=== PATIENT | female | born 1965 | race Caucasian/White ===

== ENCOUNTER → 2017-05-10 07:04 | Outpatient (CLI) | payer OTHER, SELFPAY ==
[2017-05-10 07:31] LABS: Absolute Lymphocyte Count 2.45 X10^3/ul (0.83-4.51); Absolute Neutrophil Count 2.1 X10^3/uL (2.0-7.7); Basophil# 0.02 X10^3/uL; Basophil% 0.4 % (0-1); Eosinophil# 0.23 X10^3/uL; Eosinophils% 4.3 % (0-5); Hemoglobin 12.8 g/dl (12.0-15.0); Lymphocyte # 2.45 X10^3/ul (4.0); Lymphocyte % 45.6 % (19-41); Mean Corp Hgb Conc 33.7 g/gl (32-36); Mean Corpuscular Hgb 29.4 pg (27.0-32.0); Mean Corpuscular Volume 87.4 fL (81-99); Mean Platelet Vol. 10.6 fl (6.2-12.0); Monocyte# 0.53 X10^3/uL; Monocyte% 9.9 % (0-10); Neutrophil # 2.13 X10^3/uL (2.7-7.7); Neutrophil % 39.6 % (47-70); Platelet Count 244 K/mm3 (150-450); RBC Distribution Width CV 12.3 % (11.6-14.6); RBC Distribution Width SD 39.8 fl (35.1-43.9); Red Blood Count 4.35 M/mm3 (4.2-5.4); White Blood Count 5.4 K/mm3 (4.4-11.0)
[2017-05-10 07:40] LABS: POSITIVE COUNT NO; POSITIVE DIFFERENTIAL NO; POSITIVE MORPHOLOGY NO
[2017-05-10 08:00] LABS: AST(SGOT) 16 U/L (15-37); Alanine Aminotransfer ALT/SGPT 17 U/L (13-56); Albumin, Serum 3.6 g/dL (3.2-5.0); Alkaline Phosphatase 77 U/L (45-117); Anion Gap 8 (5-15); BUN 10 mg/dL (7-18); BUN/Creat Ratio 15.2 RATIO (10-20); Calcium,Total 8.6 mg/dL (8.5-10.1); Chloride 107 mmol/L (98-107); Cholesterol 183 mg/dL (200); Creatinine, Serum 0.66 mg/dL (0.55-1.02); EST Glomerular Filtration Rate 101 mL/min (>60); Est Glom Filt Rate - Afr Amer 122 mL/min (>60); Free T3 2.5 pg/mL (2.18-3.98); Globulin 3.5 g/dL (2.2-4.2); Glucose 97 mg/dL (74-106); Potassium 4.3 mmol/L (3.5-5.1); Protein, Total 7.1 g/dL (6.4-8.2); Sodium Level 141 mmol/L (136-145); T4 Free Direct 0.83 ng/dL (0.76-1.46); Thyroid Stim Hormone (TSH) 3.51 uIU/mL (0.358-3.74)
[2017-05-11 11:21] LABS: Thyroid Peroxidase AB 19 IU/mL (0-34)
== END ==
PROVIDERS: Family Provider Family Medicine; PCP Family Medicine; Visit Provider Family Medicine
DX: Q87.40 Marfan syndrome, unspecified (principal); L65.9 Nonscarring hair loss, unspecified; R73.01 Impaired fasting glucose
CPT/HCPCS: 80053; 82465; 84439; 84443; 84481; 85025; 86376

== ENCOUNTER → 2017-06-10 07:47 | Outpatient (CLI) | payer OTHER, SELFPAY ==
--- NOTE | 2017-06-10 07:49 | CT_ITS ---
STUDY: CTA CHEST REASON FOR EXAM: Female, 51 years old. 6 month history of chest pain. Family history of Marfan's. RADIATION DOSAGE (If Supplied By Facility): CTDIvol = ( 10.81 ) mGy, DLP = ( 363.49 ) mGycm TECHNIQUE: The examination was performed with the intravenous administration of 100 ml of Isovue 370 contrast material. Post-processing of the angiographic images was performed, with multiplanar reformation and 3D reconstruction. Individualized dose optimization techniques were used for this CT. COMPARISON: Comparison is made with prior examination dated December 30, 2009. FINDINGS: Normal enhancement of the main pulmonary artery and right and left pulmonary arteries. Normal enhancement of the bilateral peripheral pulmonary arteries. There is no demonstrated pulmonary embolism. Normal thoracic aorta and visualized great vessels. There is no demonstrated aortic dissection. Normal heart and pericardium. Normal mediastinum. Normal hilar regions. Normal visualized trachea and bronchi. The lungs are well expanded. Normal pulmonary parenchyma. Normal pleura. Normal chest wall structures. There are degenerative changes of thoracic spine. Normal visualized upper abdomen. CT/CTA Chest W/WO Contrast IMPRESSION: Normal CTA chest examination, without a demonstrated pulmonary embolism or arterial dissection. Electronically Signed: Florentino White MD at 15:41 EDT Tel [phone], Service support ,
== END ==
PROVIDERS: Family Provider Family Medicine; PCP Family Medicine; Visit Provider Internal Medicine Cardiovascular Disease
DX: G45.8 Other transient cerebral ischemic attacks and related syndromes (principal); I77.810 Thoracic aortic ectasia; Q67.6 Pectus excavatum; R07.9 Chest pain, unspecified; Z82.79 Family history of other congenital malformations, deformations and chromosomal abnormalities
CPT/HCPCS: 71275; Q9967

== ENCOUNTER → 2017-06-15 10:38 | Outpatient (CLI) | payer OTHER, SELFPAY ==
--- NOTE | 2017-06-15 10:39 | STE_ITS ---
Reason For Study: Chest Pain Stress Results Protocol: [facility] Protocol Maximum Predicted HR: 170 bpm Target HR: 145 bpm% Max imum Predicted HR: 96 % DurationHeart Rate Stage (mm:ss) (bpm) BPCom ment Baseline 67 122/90 Mild Chest Pressure [facility] Protocol Stage I 3:00 12 9 134/86Mild Chest Pressure Marin Protocol Stage II 3:00 13 9 146/88Chest Pressure Improved Marin Protocol Stage III 3:00 16 4 160/88No Chest Pressure Recovery 98 118/82 No Chest Pressure Stress Duration: 9:00 mm:ss Maximum Stress HR: 164 bpmM ETS: 10 Baseline Echocardiogram Findings The estimated ejection fraction is 65 %. Stress Echo Wall motion Data Resting WMIntermediate WMStress WM Resting Wall Motion Wall Motion Stress No regional wall motion No regional wall motion abnormalities noted. abnormalities noted. EKG Data The baseline ECG demonstrates normal sinus rhythm with at rate of _ beats per minute. The patient exercised according to the regular Marin protocol for a total duration of 9:00. The maximum heart rate attained was 164 beats per minute. This was 96% of maximum predicted heart rate. The patient exercised into stage 4 of the Marin protocol. During stress, there were no ST or T wave changes noted to suggest ischemia. Interpretation Summary The estimated ejection fraction is 65 %. Normal adequate treadmill echocardiogram. Negative for ischemia by EKG and echocardiographic criteria. Pt had mild chest pressure at baseline prior to test, which actually improved with exercise. Appropriate blood pressure response to exercise. Average exercise capacity for age. Final LVEF of 75%. Test terminated due to leg discomfort. No complications. MMode/2D Measurements & Calculations Ao root diam: 4.3 cm Ordering Physician: Yvon Salazar Referring Physician: Yvon Salazar Performed By: Analy Champion, RDCS, RVT
== END ==
PROVIDERS: Family Provider Family Medicine; PCP Family Medicine; Visit Provider Internal Medicine Cardiovascular Disease
DX: G45.8 Other transient cerebral ischemic attacks and related syndromes (principal); I77.810 Thoracic aortic ectasia; Q67.6 Pectus excavatum; R07.9 Chest pain, unspecified; Z82.79 Family history of other congenital malformations, deformations and chromosomal abnormalities
CPT/HCPCS: 93017; 93350

== ENCOUNTER → 2017-10-18 13:58 | Outpatient (CLI) | payer SELFPAY, OTHER | PROVIDERS: Family Provider Family Medicine; PCP Family Medicine; Visit Provider Family Medicine | DX: M25.561 Pain in right knee (principal); M25.461 Effusion, right knee | CPT/HCPCS: 73564 ==

== ENCOUNTER → 2017-11-08 07:53 | Outpatient (CLI) | payer OTHER, SELFPAY ==
--- NOTE | 2017-11-08 07:56 | BI_ITS ---
MAMMOGRAPHY - BILATERAL SCREENING REASON FOR EXAM: Female, 51 years old. Routine annual screening examination. PERTINENT HISTORY: Grandmother with breast cancer. TECHNIQUE: Digital bilateral breast fannie (3D mammographic acquisition) in the CC and MLO projections. 2-D mediolateral oblique (MLO) and craniocaudad (CC) views of both breasts were obtained. CAD: Full Field Digital Mammography with Computer Added Detection was performed. COMPARISON: Comparison is made with prior examination dated December 19, 2014 and November 07, 2013. FINDINGS: Breast Composition: The breasts are heterogeneously dense, which may obscure small masses. There are no dominant masses or suspicious calcifications. No other significant abnormalities are identified. There has been no significant change since the prior study. BI/SCREENING MAMM (CAD), BILAT IMPRESSION: Stable bilateral screening mammogram. Yearly follow-up mammogram recommended. (A) ASSESSMENT CATEGORY: BIRADS Category 1: Negative. A letter regarding these results will be sent to the patient by the facility within 30 days. Approximately 10% of breast cancers are not detected by mammography. A normal mammogram should not delay biopsy of a clinically suspicious abnormality. [id number] Electronically Signed: Florentino White MD at 9:04 EDT Tel [phone], Service support ,
--- NOTE | 2017-11-08 08:12 | BD_ITS ---
STUDY: DUAL ENERGY X-RAY ABSORPTIOMETRY / DXA REASON FOR EXAM: Female, 51 years old. Perimenopausal. No loss of height. TECHNIQUE: Bone Mineral Density (BMD) measurements of lumbar spine and bilateral hips were obtained. COMPARISON: None. FINDINGS: Lumbar Spine (L1-L4): g/cm2 (1.197) / T-score (0.1) / Z-score (0.6) Findings are suggestive of normal bone density with a low fracture risk. Left Femur Total: g/cm2 (0.978) / T-score (-0.2) / Z-score (0.3) Left Femoral Neck: g/cm2 (0.869) / T-score (-1.2) / Z-score (-0.4) Right Femur Total: g/cm2 (1.015) / T-score (0.1) / Z-score (0.6) Right Femoral Neck: g/cm2 (0.923) / T-score (-0.8) / Z-score (0.0) BD/Dexa Bone Density Study IMPRESSION: The patient is considered osteopenic as outlined below according to World [employer] Organization (WHO) criteria with a low fracture risk. Reference Information: The T-score is the number of standard deviations above or below the standard which is normal for young adults at their peak bone mineral density. The World Health Organization (WHO) interprets the T-scores as follows: Above -1 Normal bone density Between -1 and -2.5 Osteopenia Equal to / or below -2.5 Osteoporosis As a practical clinical guideline, osteopenia may be graded as follows: Mild -1 through -1.5 Moderate -1.6 through -2.0 Severe -2.1 through -2.4 The Z-score is the number of standard deviations above or below age-matched controls. A Z-score of less than -1.5 would be considered abnormal. References: 1. NIH Osteoporosis and Related Bone Diseases http://www.osteo.org 2. International Society for Clinical Densitometry http://www.iscd.org 3. National Osteoporosis Foundation http://www.nof.org Electronically Signed: Florentino White MD at 13:55 EDT Tel [phone], Service support ,
== END ==
PROVIDERS: Family Provider Family Medicine; PCP Family Medicine; Visit Provider Family Medicine
DX: Z12.31 Encounter for screening mammogram for malignant neoplasm of breast (principal); Z13.820 Encounter for screening for osteoporosis; M85.80 Other specified disorders of bone density and structure, unspecified site; Q87.40 Marfan syndrome, unspecified
CPT/HCPCS: 77062; 77067; 77080; G0279

== ENCOUNTER → 2018-04-20 15:43 | Outpatient (CLI) | payer OTHER, SELFPAY ==
[2017-12-01 13:40] VITALS: BMI 29.7
[2018-04-20 15:49] LABS: Mucous, Urine 0 SEEN /hpf (<or=2+); White Blood Cells 0 SEEN /hpf (0-5)
[2018-04-20 17:41] LABS: Absolute Lymphocyte Count 2.66 X10^3/ul (0.83-4.51); Absolute Neutrophil Count 3.1 X10^3/uL (2.0-7.7); Basophil# 0.03 X10^3/uL; Basophil% 0.5 % (0-1); Eosinophils% 3.1 % (0-5); Hematocrit 38.6 % (37-47); Hemoglobin 12.9 g/dl (12.0-15.0); Lymphocyte # 2.66 X10^3/ul (4.0); Lymphocyte % 40.6 % (19-41); Mean Corp Hgb Conc 33.4 g/gl (32-36); Mean Corpuscular Hgb 29.6 pg (27.0-32.0); Mean Corpuscular Volume 88.5 fL (81-99); Mean Platelet Vol. 11.1 fl (6.2-12.0); Monocyte# 0.53 X10^3/uL; Monocyte% 8.1 % (0-10); Neutrophil # 3.11 X10^3/uL (2.7-7.7); Neutrophil % 47.4 % (47-70); Platelet Count 251 K/mm3 (150-450); RBC Distribution Width CV 12.3 % (11.6-14.6); RBC Distribution Width SD 38.9 fl (35.1-43.9); Red Blood Count 4.36 M/mm3 (4.2-5.4); White Blood Count 6.6 K/mm3 (4.4-11.0)
[2018-04-20 17:44] LABS: Color, Urine Yellow (Yellow); Glucose, Dipstick Normal (Normal); Ketone-Dipstick 5 mg/dl (Negative); Leukocyte Esterase-Dipstick Negative /ul (Negative); Nitrite-Dipstick Negative (Negative); Occult Blood-Urine Negative /ul (Negative); POSITIVE COUNT NO; POSITIVE DIFFERENTIAL NO; POSITIVE MORPHOLOGY NO; Protein-Dipstick Negative (Negative); Urine Bilirubin Dipstick Negative (Negative); Urine Clarity Clear (Clear); Urine Urobilinogen Normal (Normal)
[2018-04-20 17:55] LABS: Bacteria RARE /hpf (None Seen); Red Blood Cells-Urine 0-5 SEEN /hpf (0-5); Squamous Epithelial Cells - UA 0-5 SEEN /hpf (5-10)
[2018-04-20 17:59] LABS: ALB/GLOB Ratio 1.2 RATIO (0.9-2.4); AST(SGOT) 24 U/L (15-37); Alanine Aminotransfer ALT/SGPT 34 U/L (13-56); Albumin, Serum 4.1 g/dL (3.2-5.0); Alkaline Phosphatase 98 U/L (45-117); Anion Gap 10 (5-15); BUN 12 mg/dL (7-18); BUN/Creat Ratio 16.9 RATIO (10-20); Calcium,Total 9.2 mg/dL (8.5-10.1); Chloride 106 mmol/L (98-107); Creatinine, Serum 0.71 mg/dL (0.55-1.02); EST Glomerular Filtration Rate 92 mL/min (>60); Est Glom Filt Rate - Afr Amer 112 mL/min (>60); Globulin 3.5 g/dL (2.2-4.2); Glucose 84 mg/dL (74-106); Hemoglobin A1c 5.4 % (4.2-6.3); Potassium 4.3 mmol/L (3.5-5.1); Protein, Total 7.6 g/dL (6.4-8.2); Sodium Level 141 mmol/L (136-145); Thyroid Stim Hormone (TSH) 1.42 uIU/mL (0.358-3.74)
== END ==
PROVIDERS: Family Provider Family Medicine; PCP Family Medicine; Referring Provider Family Medicine; Visit Provider Family Medicine
DX: N39.0 Urinary tract infection, site not specified (principal); R82.90 Unspecified abnormal findings in urine
CPT/HCPCS: 36415; 80053; 81001; 83036; 84443; 85025; 87086; 87088

== ENCOUNTER → 2018-10-31 11:36 | Outpatient (CLI) | payer OTHER, SELFPAY ==
[2017-12-01 13:40] VITALS: BMI 29.7
[2018-10-31 15:47] LABS: T3 Uptake 30 % (30-39); T4 Free Direct 0.97 ng/dL (0.76-1.46); Thyroid Stim Hormone (TSH) 1.49 uIU/mL (0.358-3.74)
== END ==
PROVIDERS: Nurse Practitioner Adult Health; Family Provider Family Medicine; PCP Family Medicine; Referring Provider Family Medicine; Visit Provider Family Medicine
DX: R53.83 Other fatigue (principal)
CPT/HCPCS: 36415; 84439; 84443; 84479

== ENCOUNTER → 2018-12-06 11:08 | Outpatient (CLI) | payer OTHER, SELFPAY ==
--- NOTE | 2018-12-06 11:12 | BI_ITS ---
BILATERAL DIGITAL MAMMOGRAM WITH TOMOSYNTHESIS: Mediolateraloblique and craniocaudal views demonstrate no evidence of dominant parenchymal masses. No cluster of microcalcifications or architectural distortion is seen. No evidence of skin thickening is identified. There has been no significant change since 10/29/2017 . Breast Density: The breast tissue is extremely dense which may lower the sensitivity of mammography. CAD was used to assist in final assessment. IMPRESSION: NORMAL MAMMOGRAM BILATERALLY. ASSESSMENT CATEGORY: BIRADS Category 1: Negative. A letter regarding these results will be sent to the patient by the facility within 30 days. FOLLOW UP RECOMMENDATION: Yearly follow up mammogram recommended. (A) Approximately 10% of breast cancers are not detected by mammography. A normal mammogram should not delay biopsy of a clinically suspicious abnormality. Electronically Signed: Jomar Higuera, at 17:16 EDT Tel , Service support , BI/SCREEN MAMM (CAD) W/KRISTIN SAGE
== END ==
PROVIDERS: Family Provider Family Medicine; PCP Family Medicine; Referring Provider Nurse Practitioner Adult Health; Visit Provider Nurse Practitioner Adult Health
DX: Z12.31 Encounter for screening mammogram for malignant neoplasm of breast (principal); Z78.0 Asymptomatic menopausal state
CPT/HCPCS: 77063; 77067

== ENCOUNTER 2019-01-16 06:23 | Day surgery (SDC) | payer OTHER, SELFPAY ==
[2019-01-10 10:01] VITALS: BMI 30.5
[2019-01-16] VITALS (7 sets, daily range): BP systolic 109–122; BP diastolic 70–87; PULSE 69–85; RESP 16; TEMP 36.7–36.9; O2SAT 95–100; BMI 28.8
--- NOTE | 2019-01-16 07:01 | HP.PCM_ITS ---
Problem List (1) Screening for intestinal cancer Status: Acute History of Present Illness Date of Admission: 01/16/19 The patient is a 53 year old F who presents today for screening colonoscopy. All members of her family have Marfan's. She states that she has never been actually diagnosed with that. In the past she has had some noncardiac chest pain. Aortic root on most recent measurement is 4.1 cm. That was February 2018 through the [facility] cardiology. She has never previously had a colonoscopy. No bright red blood per rectum or melena. No abdominal pain. No unexpected weight loss. She otherwise enjoys good health. No family history of colon cancer. Past Medical History Past Medical History (Chronic Problems): Chronic Problems (This Medical Record has been edited. Action required.) Aortic root dilatation (Chronic) Family history of Marfan syndrome (Chronic) Medical History: Medical History (This Medical Record has been edited. Action required.) Aortic root dilatation (Chronic) I77.810 Family history of Marfan syndrome (Chronic) Z82.79 Arthritis M19.90 Chest pain, unspecified (Resolved) R07.9 Allergies ciprofloxacin [From Cipro] Allergy (Unknown, Verified 01/16/19 06:41) unknown nitrofurantoin [From Macrobid] Allergy (Unknown, Verified 01/16/19 06:41) unknown sulfamethoxazole [From Bactrim] Allergy (Unknown, Verified 01/16/19 06:41) unknown trimethoprim [From Bactrim] Allergy (Unknown, Verified 01/16/19 06:41) unknown Sulfa (Sulfonamide Antibiotics) Allergy (Verified 01/16/19 06:41) Hives Home Medications: Ambulatory Orders Medication Instructions Recorded atenolol 25 mg tablet 25 mg PO DAILY #7 tab 04/21/18 losartan 100 mg tablet 100 mg PO DAILY #7 tab 04/21/18 aspirin 81 mg tablet,delayed 81 mg PO DAILY 01/09/19 release Surgical History: Surgical History (Last Reviewed 01/09/19 @ 14:26 by Ina Henderson) History of hernia repair Onset Date: ~2013 Z98.890, Z87.19 Hx of artificial lens replacement Z96.1 2000,2013 Smoking Status: Former smoker Tobacco Use: Non-smoker Review of Systems Constitutional: Denies: Anorexia HEENT: Denies: Difficulty Swallowing Cardiovascular: Denies: Chest Pain Respiratory: Denies: Cough Gastrointestinal: Denies: Abdominal Pain, Melena Endocrine: Denies: Change in Body Habitus VTE Information - Inpt Only VTE Present on Admission: No Patient Problems: Active and Suspected Problems (This Medical Record has been edited. Action required.) Screening for intestinal cancer (Acute) - Physical Exam Vitals/I&O's: Vital Signs Temp Pulse Resp BP Pulse Ox 98.0 F 85 16 115/87 H 95 01/16/19 06:42 01/16/19 06:42 01/16/19 06:42 01/16/19 06:42 01/16/19 06:42 Oxygen Delivery Method Room Air Weight: 183 lb 13.848 oz Body Mass Index (BMI) 28.8 General: Alert, Oriented x3, Cooperative Oral: Moist Mucosa Lungs: Clear to auscultation Cardiovascular: Regular rate, Regular Rhythm Abdomen: Bowel Sounds Present, Soft, Non Tender Extremities: No Calf Tenderness Psych/Mental Status: Normal Affect Assessment/Plan All Active Problems (This Medical Record has been edited. Action required.) Screening for intestinal cancer (Acute) Chest pain, unspecified (Resolved) I recommend to the patient is screening colonoscopy with possible biopsy or polyp removal as indicated. She is aware of the technique, benefits, risks, alternatives. She has had an opportunity to ask and have questions answered. She has performed her bowel prep. She presents via our open access program today. We will proceed as noted. Delta Barrett M.D., F.A.C.S.
--- NOTE | 2019-01-16 07:57 | OP.COLON_ITS ---
Patient Name: Itzel Butt Procedure Date: 01/16/2019 7:35 AM Date of : 1965 Age: 53 Procedure: Colonoscopy Indications: Screening for colorectal malignant neoplasm Providers: Delta Barrett MD Referring MD: Alton Espinal Medicines: See the Anesthesia note for documentation of the administered medications Patient Profile: Last Colonoscopy: none. The patient's first colonoscopy is today. Complications: No immediate complications. Procedure: Pre-Anesthesia Assessment: - Prior to the procedure, a History and Physical was performed, and patient medications and allergies were reviewed. The patient's tolerance of previous anesthesia was also reviewed. The risks and benefits of the procedure and the sedation options and risks were discussed with the patient. All questions were answered, and informed consent was obtained. Prior Anticoagulants: The patient has taken no previous anticoagulant or antiplatelet agents. ASA Grade Assessment: II - A patient with mild systemic disease. After reviewing the risks and benefits, the patient was deemed in satisfactory condition to undergo the procedure. After I obtained informed consent, the scope was passed under direct vision. Throughout the procedure, the patient's blood pressure, pulse, and oxygen saturations were monitored continuously. The Colonoscope was introduced through the anus and advanced to the cecum, identified by appendiceal orifice and ileocecal valve. The colonoscopy was performed without difficulty. The patient tolerated the procedure well. The quality of the bowel preparation was good. The ileocecal valve and the appendiceal orifice were photographed. Scope In: 7:43:54 AM Scope Withdrawal Time 0 hours 6 minutes 12 seconds Scope Out: 7:54:08 AM Total Procedure Duration Time 0 hours 10 minutes 14 seconds Findings: Hemorrhoids were found on perianal exam. The colon (entire examined portion) appeared normal. Impression: - Hemorrhoids found on perianal exam. - The entire examined colon is normal. - No specimens collected. Recommendation: - Discharge patient to home. - Resume previous diet. - Continue present medications. - Repeat colonoscopy in 10 years for screening purposes. Procedure Code(s): --- Professional --- 34085, Colonoscopy, flexible; diagnostic, including collection of specimen(s) by brushing or washing, when performed (separate procedure) Diagnosis Code(s): --- Professional --- Z12.11, Encounter for screening for malignant neoplasm of colon K64.9, Unspecified hemorrhoids CPT copyright 2017 [employer]. All rights reserved. The codes documented in this report are preliminary and upon lithographic stripper review may be revised to meet current compliance requirements. Delta Barrett MD 01/16/2019 7:57:20 AM This report has been signed electronically. Number of Addenda: 0 Note Initiated On: 01/16/2019 7:35 AM
== END 2019-01-16 08:38 | disposition home or self-care (01) ==
LOC: EN 06:24 → AC 06:26
PROVIDERS: Family Provider Family Medicine; PCP Family Medicine; Referring Provider Family Medicine; Visit Provider Surgery
PROC: 0DJD8ZZ Inspection of Lower Intestinal Tract, Via Natural or Artificial Opening Endoscopic (ICD-10-PCS; CPT 45378; principal; 2019-01-16 07:25)
DX: Z12.11 Encounter for screening for malignant neoplasm of colon (principal); K64.9 Unspecified hemorrhoids; Z79.82 Long term (current) use of aspirin; Z87.891 Personal history of nicotine dependence
CPT/HCPCS: 45378; J7120; J2405

== ENCOUNTER 2019-10-23 12:28 | Emergency (ER) | payer OTHER, SELFPAY ==
[2019-01-16 06:42] VITALS: BMI 28.8
[2019-10-23 12:30] VITALS: BP 152/107; PULSE 69; RESP 18; TEMP 36.9; O2SAT 99; BMI 29.7
[2019-10-23] MEDS: HYDROcodone Bitartrate/Apap 5/325 Tablet PO (14:00)
--- NOTE | 2019-10-23 14:01 | ED.VIS.GEN ---
History of Present Illness Chief Complaint: Other, Pain/Inj Informant: Patient, Family Narrative: Patient is a 53-year-old female who presents to the ED from her PCPs office for pain on the right side of her body. Has been ongoing for the past couple week. She has had pain like this many times before in the past. She typically goes to her chiropractor. She tried this which did not help. Her pain is initially started as what she thought to be a muscle spasm on her right shoulder/neck. He had some pain rating down her arm. The pain has progressed down to the right side of her chest and now is around her right hip. Moving the extremity as well as touching it does make the symptoms worse. At rest she is able to calm herself and does not have significant pain. At rest she denies any chest pain or pain in her back. No associated shortness of breath. She is very anxious and concerned as she had family members from aortic dissections. She states that Marfan syndrome does run in the family although she is not sure if she has this. She was told she had a borderline size of her aortic arch. She denies any recent illnesses including any cough cold congestion. She denies any fever/chills. She denies any abdominal pain or nausea/vomiting. No change in bowel habits. No urinary symptoms. She denies any headache or vision changes. Past Medical History - Allergies and Home Meds Allergies/Adverse Reactions: Allergies ciprofloxacin [From Cipro] Allergy (Unknown, Verified 10/23/19 12:33) unknown nitrofurantoin [From Macrobid] Allergy (Unknown, Verified 10/23/19 12:33) unknown sulfamethoxazole [From Bactrim] Allergy (Unknown, Verified 10/23/19 12:33) unknown trimethoprim [From Bactrim] Allergy (Unknown, Verified 10/23/19 12:33) unknown Sulfa (Sulfonamide Antibiotics) Allergy (Verified 10/23/19 12:33) [place] Primary Care Physician: Alton Espinal MD [Primary Care Provider] - Prior records reviewed: Yes Past Medical History: - - Family history of Marfan syndrome Smoking Status: Former smoker Review of Systems All systems negative except as indicated General: Denies: Chills, Fever, Sweats Eyes: Denies: Visual changes - bilaterally, Diplopia ENT: Denies: Rhinorrhea, Sore throat Cardiovascular: Denies: Chest pain, Palpitations Respiratory: Denies: Dyspnea, Cough, Dyspnea on exertion Gastrointestinal: Denies: Abdominal pain, Nausea, Vomiting, Diarrhea Genitourinary: Denies: Dysuria, Hematuria, Frequency Musculoskeletal: Reports: Neck pain, Extremity Pain. Denies: Back pain, Swelling Skin: Denies: Rash, Wounds Neurological: Denies: Headache, Weakness, Numbness Physical Exam Vital Signs/Narrative: Vital Signs Temp Pulse Resp BP Pulse Ox 10/23/19 12:30 98.5 F 69 18 152/107 H 99 Inital Vital Signs reviewed: Yes General: Well nourished, Well developed, No Acute Distress Head: Normocephalic, Atraumatic Eyes: Perrl, EOMI ENT: Moist mucous membranes, No rhinorrhea Neck: Supple, - - Tenderness with palpation of the right trapezius muscle. No significant line pain. Cardiovascular: Regular rate, Regular rhythm, No murmurs, Normal S1, Normal S2 Respiratory: No distress, CTA bilaterally, Chest nontender Abdomen: Soft, Nontender, Nondistended, Normal bowel sounds Back: Nontender, Normal Inspection. Negative for: Spinal tenderness Extremities: Nontender, No edema, - - 2+ radial pulse equal bilateral. 2+ DP pulse equal bilateral. Even with very light palpation of the skin on her forearm, she starts to cry. She does have 5 out of 5 muscle strength in all 4 extremities but the right upper is limited by pain with movement.. Negative for: Calf Tenderness Skin: Normal color, No rash Neurological: Alert, Oriented x3, Cranial nerves II-XII grossly intact, Normal Strength, Normal Sensation Psychological: Normal affect, Tearful, - - Anxious Diagnostic/Tx/Re-eval - Medical Decision Making Patient presents to the ED for pain of the right side of her neck, right arm. She is having some pain along the right chest wall as well down to her right hip. Patient is very anxious and tearful. I discussed that the light palpation would not be significant of a muscle spasm but also does not fit with the picture of an aortic dissection. This does give the patient visible relief talking to her about this not being an aortic dissection. Looked at her last CT scan which was performed in 2018 which did not show any obvious aortic abnormality. I discussed doing a complete work-up with her or trying pain medication and seeing how she does. She opted to try the pain medication first and will reevaluate. Patient is feeling better after [place]. She feels like this is manageable at home is requesting a muscle relaxer. She understands if this continues that she potentially might need an MRI to evaluate the cervical spine. With no obvious trauma and no pain with compression of the head I do not feel she requires any imaging here in the ED. She understands she can return to the emergency department anytime if her symptoms continue to persist or worsen. She knows that she needs to return if she develops any chest pain or shortness of breath. At this time will discharge home in stable condition. She is given a prescription for Flexeril. She understands not to drive while taking this medication as this can make her sleepy. ED Disposition - Plan for ED Patient: Disposition: Home or Assisted Living Diagnosis: Pain, arm, right, Neck pain on right side Instructions: ED Acute Pain [facility] Prescriptions: cycloBENZAPRine HCl [Flexeril] 10 mg PO TID PRN 3 Days #9 tab PRN Reason: Muscle Spasm Transmission Status: Received by [id number] Referrals: Alton Espinal MD [Primary Care Provider] -
[2019-10-23 14:53] VITALS: BP 137/106; PULSE 72; RESP 18
== END 2019-10-23 15:09 | disposition home or self-care (01) ==
LOC: ED 14:58
PROVIDERS: Emergency Provider Emergency Medicine; PCP Family Medicine
DX: M79.601 Pain in right arm (principal); M54.2 Cervicalgia; Z87.891 Personal history of nicotine dependence
CPT/HCPCS: 99283

== ENCOUNTER → 2019-11-19 13:25 | Outpatient (CLI) | payer SELFPAY ==
[2019-10-23 12:30] VITALS: BMI 29.7
--- NOTE | 2019-11-19 13:29 | MRI_ITS ---
STUDY: MRI CERVICAL SPINE WITHOUT CONTRAST REASON FOR EXAM: Female, 54 years old. Marfan syndrome -- pain right side of body from neck to hips, rt arm pain/numbness x 3 weeks, NKI TECHNIQUE: Standardized fat and water weighted pulse sequences were obtained in the sagittal and axial planes. COMPARISON: None FINDINGS: Normal foramen magnum and brainstem-cervical cord junction. Normal craniovertebral junction. Normal anterior atlantoaxial articulation. Normal odontoid process. Normal cervical lordosis. Normal vertebral bodies and posterior osseous elements. C2-3: Endplate spondylosis. Central and paracentral disc bulge. Degenerative changes of the bilateral facet joints and uncovertebral joints. Mild narrowing of the central canal and the bilateral intervertebral neural foramina. C3-4: Endplate spondylosis. Central and paracentral disc bulge. Degenerative changes of the bilateral facet joints and uncovertebral joints. Mild narrowing of the central canal and the bilateral intervertebral neural foramina. C4-5: Endplate spondylosis. Central and paracentral disc bulge. Degenerative changes of the bilateral facet joints and uncovertebral joints. Mild narrowing of the central canal and the bilateral intervertebral neural foramina. C5-6: Endplate spondylosis. Central and paracentral disc bulge. Degenerative changes of the bilateral facet joints and uncovertebral joints. Moderate narrowing of the central canal and the bilateral intervertebral neural foramina. C6-7: Endplate spondylosis. Central and paracentral disc herniation more prominent on the right side impinging on the right C7 nerve root. Degenerative changes of the bilateral facet joints and uncovertebral joints. Moderate narrowing of the central canal and the bilateral intervertebral neural foramina. C7-T1: Normal endplates. Normal disc height, signal and morphology. Normal central canal and intervertebral neural foramina. Normal cervical cord. Normal visualized soft tissue structures. MRI/Spine Cervical (Routine) IMPRESSION: Multilevel degenerative changes. 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 Electronically Signed: Lisseth Dos Santos, at 6:15 EDT Tel , Service support ,
== END ==
PROVIDERS: PCP Family Medicine; Referring Provider Family Medicine; Visit Provider Family Medicine
DX: Q87.40 Marfan syndrome, unspecified (principal)
CPT/HCPCS: 72141

== ENCOUNTER 2021-04-16 14:24 | Outpatient (RCR) | payer MEDICARE, SELFPAY ==
--- NOTE | 2021-04-16 16:07 | HP.PTEVAL_ITS ---
Patient's Visit Information ROBERTO SORIANO is a 55 year old F referred to Physical Therapy by Dr. Aba Del Toro MD with a diagnosis of CERVICAL RADICULOPATHY. Date of Evaluation: 04/16/21 Physical Therapist: Justo Shearer PT, Cert MDT, OCS - Visit Plan Frequency: 2x /Week Duration: 4 Weeks Plan: PT INTERVETIONS CERVICAL/POSTURAL EX'S, STRENGTHENING AND KENY EX'S - Subjective This 55 y/o female presents to physical therapy to cervical radiculopathy . Patient has cervical radiculopathy ~ 1 year . Patient pain was insidious of severe pain went to went home with pain MEDS. 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 Patient seen acute care clinical nurse specialist didn't think need surgeon yet. Patient was to do therapy last year. Initially, patient was unable to lay supine in bed. Patient current problems weakness in had and arm lifting coffee cup. Patient is slowly getting better with pain. Patient has paresthesia/tingling in hand . Tried massage . Patient has has Marfans syndrome ,patient sees skein inspector due to family h/o of dissections . Constant frontal right side ,WINTER ,has tinnitus, brief dizziness .Patient has memory issues. Patient has driving ,turning to right, flexion ,Lifting. Alleviating factors lay flat no pillow ,rest ,ice/heat. Symptoms can affects sleeping. Patient symptoms affects QOL and function. SOCIAL: . VOCATION:Home - Pain Right Neck Pain Intensity (Out of 10): 2 Pain Intensity Range: 10 - Objective POSTURE: mild posture. NEURO: c/o paresthesia/tingling , reflexes C5-6-7 2/3. CERVICAL ROM: flexion min loss ,extension min loss, lateral flexion min loss, retraction min loss. PALPTION: tender UT/evators. AROM: BUE ROM WFL. MMT: GROSSLY 4-/5 ,EXCEPT ANTERIOR SHOULDER 3+/5. 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: 20# dynameter - Special Tests C/S Radiculapathy - Left Upper limb tension test: Negative C/S Radiculapathy - Right Upper limb tension test: Negative C/S Radiculapathy - Left Spurlings: Negative C/S Radiculapathy - Right Spurlings: Negative C/S Radiculapathy - Left Cervical distraction: Negative C/S Radiculapathy - Right Cervical distraction: Negative Sharp Toro: Negative Vertebral Artery Test: Negative Alar Ligament Test: Negative Cervical Sitting: Protrusion - Mechanical Response: No effect Cervical Sitting: Protrusion - Symptoms During Testing: No effect Cervical Sitting: Protrusion - Symptoms After Testing: No effect Cervical Sitting: Retraction - Mechanical Response: No effect Cervical Sitting: Retraction - Symptoms During Testing: No effect Cervical Sitting: Retraction - Symptoms After Testing: No effect Cervical Sitting: Retraction-Extension - Mechanical Response: No effect Cerv Sitting: Retraction-Extension - Symptoms During Testing: No effect Cerv Sitting: Retraction-Extension - Symptoms After Testing: No effect Cervical Sitting: Sidebend Right - Mechanical Response: No effect Cervical Sitting: Sidebend Right - Symptoms During Testing: No effect Cervical Sitting: Sidebend Right - Symptoms After Testing: No effect Cervical Sitting: Sidebend Left - Mechanical Response: No effect Cervical Sitting: Sidebend Left - Symptoms During Testing: No effect Cervical Sitting: Sidebend Left - Symptoms After Testing: No effect Cervical Sitting: Rotation Right - Mechanical Response: No effect Cervical Sitting: Rotation Right - Symptoms During Testing: No effect Cervical Sitting: Rotation Right - Symptoms After Testing: No effect Cervical Sitting: Rotation Left - Mechanical Response: No effect Cervical Sitting: Rotation Left - Symptoms During Testing: No effect Cervical Sitting: Rotation Left - Symptoms After Testing: No effect Cervical Sitting: Flexion - Mechanical Response: No effect Cervical Sitting: Flexion - Symptoms During Testing: Increases Cervical Sitting: Flexion - Symptoms After Testing: No worse - Balance/Special Test Scores Oswestry Neck Score: 19 - Goals Goal 1:: Patient to be I with HEP for cervical Goal Time Frame: 4-6 Weeks Goal 2:: Patient to demonstrate 50% improvement to improve ADLS' Goal Time Frame: 4-6 Weeks Goal 3:: Patient increase strength BUE 4/5 to improve ADLS' and housework tasks Goal Time Frame: 4-6 Weeks Goal 4:: Patient to improve vehicle 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 thus benefit from skilled PT Rehabilitation Potential: Good - Anticipated Interventions Patient/Client Instruction: Educate patient on: Condition, Plan of Care For the Purpose of:: To decrease pain, To increase ROM, To improve muscle performance and motor function, To improve ability to perform ADL's, To improve ability of physical actions for home/community/work/leisure, To improve health of tissue, To decrease soft tissue restriction, To increase flexibility/ROM, To prevent re-injury Therapeutic Exercise to Include: Strength training, Body mechanics, Postural training, Flexibilty training, Active ROM, Keny Exercises For the Purpose of:: To decrease pain, To increase ROM, To improve muscle performance and motor function, To improve ability to perform ADL's, To increase tolerance to activity/condition/position, To improve ability of physical actions for home/community/work/leisure, To improve health of tissue, To decrease soft tissue restriction, To increase flexibility/ROM, To prevent re-injury Thank you for the opportunity to evaluate your patient. For Medicare and Medicare HMO plans, please review the plan of care and approve it. It will need to be FAXED BACK to us at [phone] for Medicare purposes. For Medicare only, by signing this I certify the plan of care. Please let me know if there are questions or concerns regarding this plan of care. Physician Signature: Date:
== END 2021-04-16 19:00 | disposition home or self-care (01) ==
LOC: PT 14:24
PROVIDERS: PCP Internal Medicine; Referring Provider Internal Medicine; Visit Provider Internal Medicine
DX: M54.12 Radiculopathy, cervical region (principal)
CPT/HCPCS: 97110; 97162

== ENCOUNTER → 2021-12-16 | Outpatient (CLI) | payer MEDICARE, SELFPAY ==
--- NOTE | 2021-12-16 08:33 | BI_ITS ---
MAMMOGRAPHY - BILATERAL SCREENING 3-D TOMOSYNTHESIS REASON FOR EXAM: Female, 56 years old. Routine screening PERTINENT HISTORY: No significant family history. TECHNIQUE: 2-D mammograms and 3-D Tomosynthesis of the breast (s) were performed. CAD was performed. COMPARISON: 12/06/2018 FINDINGS: The breast composition is heterogeneously dense that can obscure small breast masses. Scattered benign calcifications are seen. No dense spiculated masses or suspicious microcalcifications are identified. No architectural distortion is identified. There is no skin thickening or retraction. There has been no significant change since the prior study. BI/SCRN MAMM (CAD)W/KRISTIN BILAT IMPRESSION: No mammographic signs of malignancy. Routine yearly mammograms recommended. ASSESSMENT CATEGORY: BIRADS Category 2: Benign. A letter regarding these results will be sent to the patient by the facility within 30 days. FOLLOW UP RECOMMENDATION: Yearly follow up mammogram recommended. (A) Approximately 10% of breast cancers are not detected by mammography. A normal mammogram should not delay biopsy of a clinically suspicious abnormality. Electronically Signed: Sonido Sanchez MD at 11:21 EDT ,
== END | disposition home or self-care (01) ==
LOC: OPBI 08:32
PROVIDERS: PCP Internal Medicine; Referring Provider Internal Medicine; Visit Provider Internal Medicine
DX: Z12.31 Encounter for screening mammogram for malignant neoplasm of breast (principal)
CPT/HCPCS: 77063; 77067

== ENCOUNTER → 2022-05-26 | Outpatient (CLI) | payer MEDICARE, SELFPAY ==
--- NOTE | 2022-05-26 14:56 | CT_ITS ---
STUDY: CT ABDOMEN AND PELVIS WITH CONTRAST REASON FOR EXAM: Female, 56 years old. Lower abd pain x1 year, history of inguinal hernia repair. RADIATION DOSAGE (If Supplied By Facility): CTDIvol = ( 15.74 ) mGy, DLP = ( 1195.16 ) mGycm TECHNIQUE: Transaxial images were obtained from the dome of the diaphragm to the symphysis pubis without oral contrast. Oral and amp; IV Readi-CAT and amp; 100mL Isovue-300 was administered. Sagittal and coronal images were reconstructed. Individualized dose optimization techniques were used for this CT. COMPARISON: None. FINDINGS: Pectus excavatum deformity. The visualized portions of the heart are within normal limits. There is decreased attenuation of the liver consistent with steatosis. There is a 1.4 cm by 1.6 cm cyst in the superior aspect of the medial portion of the left lobe of the liver. There is also evidence of a 7.4 mm cyst in the caudate lobe of the liver. Normal gallbladder and extrahepatic biliary system. Normal spleen. Normal pancreas. Normal bilateral adrenal glands. Normal right kidney. Normal left kidney. Residual food particles are seen within the stomach. Normal small intestine. There are multiple colonic diverticula consistent with diverticulosis. The appendix is visualized and appears normal. There is scattered atherosclerotic calcification of the abdominal aorta, without a demonstrated aneurysm. Normal inferior vena cava. There is borderline retroperitoneal lymphadenopathy with enlarged nodes no greater than 10mm in the short axis diameter. Normal urinary bladder. There is a 4.2 cm x 2.3 cm septated cyst in the right ovary. A dominant follicle is seen in the left ovary. Correlation with ultrasound is recommended. Small bilateral inguinal lymph nodes. Disc space narrowing and disc degeneration at the L5-S1 level. CT/Abdomen/Pelvis WITH Contrast IMPRESSION: Hepatic cysts. Fatty infiltration of the liver. 4.2 synovitis 2.3 cm septated cyst in the right ovary. A dominant follicle is seen in the left ovary. Correlation with ultrasound is recommended. Electronically Signed: Florentino White MD at 15:30 EDT ,
== END | disposition home or self-care (01) ==
LOC: CT 14:55
PROVIDERS: PCP Internal Medicine; Referring Provider Nurse Practitioner Adult Health; Visit Provider Nurse Practitioner Adult Health
DX: R10.31 Right lower quadrant pain (principal)
CPT/HCPCS: 74177; Q9967

== ENCOUNTER 2024-06-27 17:41 | Emergency (ER) | payer MEDICARE, SELFPAY ==
[2024-06-27 17:42] VITALS: BP 142/85; PULSE 98; RESP 16; TEMP 36.4; O2SAT 98; BMI 33.7
--- NOTE | 2024-06-27 18:22 | EX.ED.VIS.HA ---
HPI History of Present Illness Chief Complaint: Headache Informant: patient Onset/Context/Timing Onset: Weeks (2) Context: Gradual Timing: Continuous Location: Right side of head and neck Worsened by: Nothing Relieved by: Ice, heat, stretching Associated Symptoms/Injury Associated Symptoms: Positive for Nausea, Sinus Pressure and Tingling; Negative for Fever, Vomiting, Sore Throat, Numbness, Preceding Aura, Visual Changes, Blurred Vision, Photophobia or Visual Loss Injury - WINTER: Negative for Direct Trauma Narrative Narrative: Patient presents with a headache that has been constant for the past 2 weeks. Patient states it is worse on the right side of her head. Patient describes it as a pressure. Patient states she has been using ice and heat to the side of her neck. Patient states this has been helping somewhat. Patient states she has also been doing some stretching exercises on her neck which have been helping. Patient admits to some nausea but denies any vomiting. Patient denies any fevers or chills. Patient admits to some tingling over her left shoulder area and left upper chest. Patient denies any visual changes, photophobia, or scotoma. Patient states she does get some pain into her chest at times. [facility] Medical History Anxiety Depression Leaky heart valve GERD (gastroesophageal reflux disease) Osteopenia Headache, migraine History of breast lump Arthritis Aortic root dilatation Chest pain, unspecified Family history of Marfan syndrome Home Medications ?Medication ?Instructions ?Recorded ?Last Taken ?Type aspirin 81 mg tablet,delayed 81 mg PO QHS 01/09/19 06/26/24 History release losartan 100 mg tablet 100 mg PO DAILY #90 tabs 02/12/19 06/27/24 Rx alprazolam 0.25 mg tablet 0.125 - 0.25 mg PO DAILY PRN 06/27/24 Unknown History anxiety atenolol 25 mg tablet 25 mg PO QHS 06/27/24 06/26/24 History clobetasol 0.05 % topical ointment 1 applic topical DAILY PRN skin 06/27/24 Unknown History irritation hydrochlorothiazide 25 mg tablet 25 mg PO DAILY 06/27/24 06/27/24 History Allergy/AdvReac Type Severity Reaction Status Date / Time gabapentin Allergy Intermediate Other Verified 06/27/24 17:41 ciprofloxacin (From Cipro) Allergy Unknown unknown Verified 06/27/24 17:41 nitrofurantoin (From Allergy Unknown unknown Verified 06/27/24 17:41 Macrobid) sulfamethoxazole (From Allergy Unknown unknown Verified 06/27/24 17:41 Bactrim) trimethoprim (From Bactrim) Allergy Unknown unknown Verified 06/27/24 17:41 Sulfa (Sulfonamide Allergy Hives Verified 06/27/24 17:41 Antibiotics) Family History Father CAD (coronary artery disease) Mother , of AAA rupture CAD (coronary artery disease) S/P CABG (coronary artery bypass graft) H/O mitral valve replacement Cardiac pacemaker in situ Marfan's syndrome Brother Marfan's syndrome s/p aortic root replacement S/P aortic valve replacement reimplantation of coronary arteries Atrial fibrillation SVT (supraventricular tachycardia) Brother Marfan's syndrome S/P aortic valve replacement Aortic aneurysm and dissection dissection to iliac artery Abdominal aneurysm Other Anxiety Arthritis Cervical cancer Depression Diabetes High cholesterol Hypertension Parkinson disease Surgical History H/O laminectomy History of hernia repair (~2013) Hx of artificial lens replacement Social History household members: spouse current occupational status: retired current occupation: [employer], [employer] Smoking Status: Former smoker quit date: 02/28/09 pack-years: 30 Electronic Cigarette Use: not used alcohol intake: current alcohol intake frequency: other details: rare, once a year substance use type: does not use what type of physical activity do you participate in: walking frequency: 1-2 times per week do you feel safe at home: Yes ROS ROS ED Constitutional Constitutional ED: Denies chills or fever(s) Eyes Eyes: Denies blurry vision or change in vision ENT ENT ED: Denies rhinorrhea or sore throat Cardiovascular Cardiovascular: Reports chest pain; Denies palpitations Respiratory/Chest Respiratory/Chest: Denies cough or dyspnea Gastrointestinal Gastrointestinal: Reports nausea; Denies vomiting Genitourinary Genitourinary ED: Denies dysuria or hematuria Musculoskeletal Musculoskeletal: Reports back pain and neck pain Integumentary Denies abscess or rash Neurologic Neurologic: Reports headache(s); Denies weakness Allergic/Immunologic Allergic/Immunologic ED: Denies mouth swelling or urticaria EXAM Physical Exam Const Vital Signs: 06/27/24 17:42 06/27/24 19:41 Temperature 97.6 F L Temperature Source Temporal Pulse Rate 98 71 Respiratory Rate 16 17 Blood Pressure 142/85 H 114/71 Blood Pressure Mean 104 85 Pulse Ox 98 99 Oxygen Delivery Method Room Air Room Air Positive well nourished and well developed General Appearance ED: well developed and NAD HEENT Reports normocephalic and moist mucous membranes atraumatic and temporal artery tenderness right (Mild) Eyes PERRL and EOMs intact bilaterally Neck supple, no meningeal signs and no JVD Resp normal respiratory effort and clear to auscultation bilaterally Cardio regular rate and regular rhythm GI non-tender and non-distended Palpation: soft Extremity normal to inspection General Extremety ED: Negative for edema or tenderness General Extremity: Negative for edema Neuro oriented x3, CN's II-XII intact bilaterally and no sensory deficits noted [place] Coma Scale: document GCS findings Spontaneous Obeys Commands Oriented 15 Sensorium / Orientation: awake and alert Speech: speech normal Motor Exam: strength 5/5 throughout Psych mental status grossly normal MDM MDM MDM Narrative Medical decision making narrative: Differential diagnosis includes tension headache, sinus headache, temporal arteritis, intracranial bleeding, cardiac dysrhythmia, cardiac ischemia, and electrolyte abnormality. CT scan of the brain will be obtained to assess for intracranial bleeding and stroke. EKG will be obtained to assess for cardiac dysrhythmia and cardiac ischemia. Chest x-ray will be obtained to assess for pneumonia and bronchitis. CBC will be obtained to assess for leukocytosis and anemia. Basic metabolic profile will be obtained to assess for electrolyte abnormality renal function. High-sensitivity troponin will be obtained to assess for cardiac ischemia. 2-hour repeat high-sensitivity troponin will be obtained to assess for ongoing cardiac ischemia. Sed rate will be obtained to assess for temporal arteritis. Lab Data Attestation: I reviewed the patient's lab results. Lab results narrative: CBC was reviewed and was within normal limits. Basic metabolic profile was reviewed and was within normal limits. Sed rate was reviewed and was normal at 23. High-sensitivity troponin was reviewed and was normal at 7. Labs: Laboratory Results - last 24 hr 06/27/24 18:21 WBC 8.6 RBC 4.45 Hgb 12.9 Hct 37.2 MCV 83.6 MCH 29.0 MCHC 34.7 RDW Std Deviation 37.4 RDW Coeff of Mehnaz 12.3 Plt Count 299 MPV 10.5 Immature Gran % (Auto) 0.200 Neut % (Auto) 46.4 L Lymph % (Auto) 41.9 H [place] % (Auto) 7.3 Eos % (Auto) 3.6 Baso % (Auto) 0.6 Absolute Neuts (auto) 4.0 Absolute Lymphs (auto) 3.60 Nucleated RBC % 0 ESR 23 Sodium 138 Potassium 3.4 Chloride 101 Carbon Dioxide 23.4 Anion Gap 14 BUN 13 Creatinine 0.73 Estim Creat Clear Calc 102.17 Est GFR (MDRD) Non-Af 96 BUN/Creatinine Ratio 17.5 Glucose 93 Calcium 9.6 Troponin T High Sens 7 Radiography Chest X-Ray - ED: 2 View, Read by ED Physician, Read by Radiologist and No Acute Disease Diagnostic Testing: Clinical Impression(s) from Imaging Studies Brain CT 06/27/24 18:23 IMPRESSION: NORMAL NONCONTRAST HEAD CT. Reading Location: [facility] Chest X-Ray 06/27/24 19:00 IMPRESSION: No acute cardiopulmonary process is identified radiographically. Reading Location: [id number] and lateral chest x-ray was obtained. There are 2 views. On my independent interpretation, lung isaac are clear. There is normal cardiac silhouette. Bony thorax is normal. There is no acute process noted. Radiologist also interpreted the x-ray and agrees. CT scan of the brain was obtained. There is no acute intracranial abnormality. This was interpreted by the radiologist and was also independently reviewed by myself. EKG Initial EKG: Attestation: I personally reviewed and interpreted this EKG as follows: Interpretation: Sinus Rhythm (78) and Non-Specific ST Changes Comments: EKG was obtained. On my independent interpretation, it showed a normal sinus rhythm with a rate of 78. OR interval, QRS interval, and QTc intervals were all normal. [place] was normal. There are nonspecific ST-T wave changes. Prior EKG tracings: not available for review Prior: No Prior Treatment and Re-Evaluation Narrative: Patient was given IV fluids, Reglan, and Benadryl. Patient was feeling better on reevaluation. Patient states her headache is markedly improved. Patient was advised of her findings. Patient was advised that this could be from a migraine headache. Patient was instructed to rest in a dark quiet room. Patient was instructed to drink plenty of fluids. Patient was instructed to follow-up with her primary care physician for further evaluation. The patient understood and was agreeable with the plan. All questions were answered. Discharge Plan Triage Chief Complaint: Headache ED Provider: Alton Rodriguez Dx/Rx/DC Orders Clinical Impression: Headache, Elevated blood pressure reading without diagnosis of hypertension Instructions: ED Headache Unspecified Prescriptions: No Action alprazolam 0.25 mg tablet 0.125 - 0.25 mg PO DAILY PRN (Reason: anxiety) Patient Comments: pt takes very rarely hydrochlorothiazide 25 mg tablet 25 mg PO DAILY clobetasol 0.05 % ointment 1 applic topical DAILY PRN (Reason: skin irritation) atenolol 25 mg tablet 25 mg PO QHS aspirin 81 mg tablet,delayed release (DR/EC) 81 mg PO QHS losartan 100 mg tablet 100 mg PO DAILY Qty: 90 3RF Primary Care Provider: Laura Elizalde Referrals: Laura Elizalde MD [Primary Care Provider] - 5-7 Days Print Language: Divehi Disposition Disposition: Home, Self Care
--- NOTE | 2024-06-27 18:23 | CT_ITS ---
PROCEDURE: BRAIN/HEAD WITHOUT CONTRAST 06/27/2024 REASON FOR EXAM: PAIN TECHNIQUE: Head CT without intravenous contrast. Coronal and Sagittal reconstruction series were provided. One or more dose reduction techniques were used (e.g., Automated exposure control, adjustment of the mA and/or kV according to patient size, use of iterative reconstruction technique. FINDINGS: Brain: Normal CSF Spaces: Normal Sinuses/Mastoids: Clear at visualized levels Bones: Unremarkable. CT/Brain/Head without Contrast IMPRESSION: NORMAL NONCONTRAST HEAD CT. Reading Location: [id number]
--- NOTE | 2024-06-27 18:24 | EKG12_ITS ---
Test Reason : HEADACHE Blood Pressure : */* mmHG Vent. Rate : 78 BPM Atrial Rate : 78 BPM P-R Int : 138 ms QRS Dur : 86 ms QT Int : 404 ms P-R-T Axes : 36 -2 39 degrees QTcB Int : 460 ms Normal sinus rhythm Minimal voltage criteria for LVH, may be normal variant ( R in aVL ) Nonspecific ST abnormality Abnormal ECG Confirmed by DEE MCCLOUD, DYLAN ([id number]), book editor LIZANDRO ABRAHAM ([id number]) on 06/28/2024 1:29:30 PM Referred By: KASIE Confirmed By: DYLAN PRICE MD
[2024-06-27] MEDS: Metoclopramide 10 MG/2 ML Vial IV (18:49)
[2024-06-27] MEDS: 0.9% Normal Saline (1000mL) 1,000 ML 999 ML IV (18:49)
[2024-06-27] MEDS: DiphenhydrAMINE 50 MG/ML Syringe 25 MG IV (18:49)
--- NOTE | 2024-06-27 19:00 | RAD_ITS ---
PROCEDURE: CHEST PA AND LATERAL 06/27/2024 REASON FOR EXAM: CHEST PAIN TECHNIQUE: Frontal and lateral views of the chest. COMPARISON: None FINDINGS: Heart size and configuration are within normal limits. Pulmonary vasculature and hilar structures are unremarkable. Trachea is midline. Lungs are expanded and clear without evidence of atelectasis, kg, effusion or pneumonic infiltrate. Bony thorax is unremarkable. RAD/Chest PA and Lateral IMPRESSION: No acute cardiopulmonary process is identified radiographically. Reading Location: [id number]
[2024-06-27 19:12] LABS: Anion Gap 14 (5-15); BUN 13 mg/dL (4-19); BUN/Creat Ratio 17.5 RATIO (10-20); Calcium,Total 9.6 mg/dL (7.6-11.0); Carbon Dioxide 23.4 mmol/L (21.0-32.0); Chloride 101 mmol/L (98-108); Creatinine, Serum 0.73 mg/dL (0.70-1.20); EST Glomerular Filtration Rate 96 (>60); Estimated Creatinine Clearance 102.17 ml/min (50-250); Glucose 93 mg/dL (70-99); Potassium 3.4 mmol/L (3.3-5.1); Sodium Level 138 mmol/L (133-145)
[2024-06-27 19:14] LABS: Basophil# 0.05 X10^3/uL; Basophil% 0.6 % (0-1); Eosinophil# 0.31 X10^3/uL; Eosinophils% 3.6 % (0-5); Hematocrit 37.2 % (37-47); Hemoglobin 12.9 g/dL (12.0-15.0); Lymphocyte % 41.9 % (19-41); Mean Corp Hgb Conc 34.7 g/dL (32-36); Mean Corpuscular Volume 83.6 fL (81-99); Mean Platelet Vol. 10.5 fl (6.2-12.0); Monocyte# 0.63 X10^3/uL; Monocyte% 7.3 % (0-10); NRBC Flagged by Analyzer 0 % (0-5); Neutrophil # 3.99 X10^3/uL (2.7-7.7); Neutrophil % 46.4 % (47-70); Platelet Count 299 K/mm3 (150-450); RBC Distribution Width CV 12.3 % (11.6-14.6); RBC Distribution Width SD 37.4 fl (35.1-43.9); Red Blood Count 4.45 M/mm3 (4.2-5.4); White Blood Count 8.6 K/mm3 (4.4-11.0)
[2024-06-27 19:16] LABS: Erythrocyte Sedimentation Rate 23 mm/hr (0-30)
[2024-06-27 19:31] LABS: Troponin T High Sensitivity 7 ng/L (<=14)
[2024-06-27 19:41] VITALS: BP 114/71; PULSE 71; RESP 17; O2SAT 99
[2024-06-27 20:24] VITALS: BP 119/80; PULSE 64; RESP 17; TEMP 36.6; O2SAT 99
== END 2024-06-27 20:28 | disposition home or self-care (01) ==
PROVIDERS: Emergency Provider Emergency Medicine; PCP Internal Medicine; Visit Provider Emergency Medicine
DX: R51.9 Headache, unspecified (principal); R03.0 Elevated blood-pressure reading, without diagnosis of hypertension; K21.9 Gastro-esophageal reflux disease without esophagitis; F41.9 Anxiety disorder, unspecified; F32.A Depression, unspecified; Z79.899 Other long term (current) drug therapy; Z79.82 Long term (current) use of aspirin; Z87.891 Personal history of nicotine dependence
CPT/HCPCS: 70450; 71046; 80048; 84484; 85025; 85652; 93005; 96361; 96374; 96375; 96376; 99283; A4216

== ENCOUNTER → 2024-09-06 | Outpatient (CLI) | payer SELFPAY | END | disposition home or self-care (01) | PROVIDERS: PCP Internal Medicine; Referring Provider Internal Medicine; Visit Provider Internal Medicine | DX: M85.80 Other specified disorders of bone density and structure, unspecified site (principal) | CPT/HCPCS: 76499 ==

== ENCOUNTER 2024-09-19 07:35 | Outpatient (CLI) | payer MEDICARE, SELFPAY ==
--- NOTE | 2024-09-19 07:38 | CT_ITS ---
PROCEDURE: LIMITED CHEST CT CARDIAC ONLY 09/19/2024 REASON FOR EXAM: HYPERCHOLESTEROLEMIA TECHNIQUE: LIMITED CHEST CT CARDIAC ONLY Coronal and Sagittal reconstruction series were provided. CONTRAST: None One or more dose reduction techniques were used (e.g., Automated exposure control, adjustment of the mA and/or kV according to patient size, use of iterative reconstruction technique). RADIATION DOSE SUMMARY: CTDlvol: 12.19 mGy DLP: 195.04 mGycm COMPARISON: None FINDINGS: Mild calcification of the aortic arch. No coronary artery calcification is seen. The heart is not enlarged. The lungs are clear. CT/Limited Chest CT Cardiac Only IMPRESSION: No coronary artery calcification is seen. Reading Location: [facility]
--- NOTE | 2024-09-19 17:26 | CA.SCORE ---
Calcium Scoring Date of Study:: 09/19/24 Indications Indications: HLD Coronary Calcium Scoring: High-resolution Computed Tomographic imaging of the chest was performed on [09/19/2024], with particular attention paid to the coronary arteries. Images from the examination were analyzed for the presence and extent of coronary artery calcification , using coronary calcium quantification software. The patient tolerated the procedure well and there were no complications. The results of the coronary calcification analysis are provided below. Findings Coronary Artery Left Main (LM): 0 Left Anterior Descending (LAD): 0 Left Circumflex (LCX): 0 Right Coronary Artery (RCA): 0 Total Agatston Score: 0 Percentile Rankinth percentile Calcium Scoring Interpretation: Different methods to categorize the overall amount of coronary plaque. Overall amount CAC SIS Visual of coronary plaque P1 Mild -100 <2 1-2 vessels with mild amount of plaque P2 Moderate 101-300 3-4 1-2 vessels with moderate amount, 3 vessels with mild amount of plaque P3 Severe 301-999 5-7 3 vessels with moderate amount, 1 vessel with severe amount of plaque P4 Extensive >1000 >8 2-3 vessels with severe amount of plaque Conclusion: No atherosclerotic plaquing noted
== END 2024-09-19 23:59 | disposition home or self-care (01) ==
PROVIDERS: PCP Internal Medicine; Referring Provider Internal Medicine; Visit Provider Internal Medicine
DX: E78.00 Pure hypercholesterolemia, unspecified (principal); R73.01 Impaired fasting glucose; Z13.6 Encounter for screening for cardiovascular disorders
CPT/HCPCS: 75571; 76380

== ENCOUNTER → 2024-12-25 | Outpatient (CLI) | payer MEDICARE, SELFPAY ==
--- OUTSIDE RECORDS SUMMARY | 2024-12-25 21:50 | XMS RPT_ITS | CCD ---
Author Organization [facility] Care Team Providers Care Operater Name Role Phone Sofía Stapleton Unavailable Unavailable Selvin BARIATRIC PROGRAM COORDINATOR-C, Azam A Unavailable Unavailable MD Martin, Yvon Parkinson Unavailable Geo Mcneil Unavailable Unavailable Aj, JEFE, Adriana Walter Unavailable Unavailabl e Gabi MCCLOUD, Jasmyn Cuellar Unavailable Jasmyn Ashley MD Unavailable MD Martin, Yvon Parkinson Unavailable Ramona Hagen Unavailable [phone] True Mayers MD Unavailable Aba Del Toro MD Primary Care Provider Ramona Hagen Unavailable [phone] True Mayers MD Unavailable Aba Del Toro MD Primary Care Provider Ramona Hagen Unavailable Dr. Aba Del Toro Referring Provider Dr. Gabriela Shaffer Primary Care Provider Dr. Gabriela Shaffer Attending Provider Ramona Hagen Unavailable True Mayers MD Unavailable Lenny Dumas MD Primary Care Provider Fernanda Hagen MDh E Unavailable Dr. Gabriela Shaffer Referring Provider Ashley CLERK RATING, CLERK RATING-C Nadia Walter Attending Provider Dr. Aba Del Toro Primary Care Provider Xander MCCLOUD, True Unavailable Lenny Dumas MD Primary Care Provider Simon LAY OUT CARPENTER.SHANKER OUT, Geo Unavailable Ryan LAY OUT CARPENTER.NEEDLE LOOM WEAVER, Nohemy Unavailable Ryan LAY OUT CARPENTER.NEEDLE LOOM WEAVER, Nohemy Unavailable Ryan LAY OUT CARPENTER.NEEDLE LOOM WEAVER, Nohemy Unavailable Unavailable Primary Care Provider Unavailabl e Ryan LAY OUT CARPENTER.NEEDLE LOOM WEAVER, Nohemy Unavailable Simon LAY OUT CARPENTER.SHANKER OUT, Geo Unavailable Simon LAY OUT CARPENTER.SHANKER OUT, Geo Unavailable Lenny Dumas Primary Care Provider BELINDA JENKINS Attending Unavailable SAMANTHA MCKENZIE Referring Unavailable LENNY DUMAS, Primary Care Unavailable BELINDA JENKINS Attending Unavailable LENNY DUMAS, Primary Care Unavailable BELINDA JENKINS Attending Unavailable Dr. Lenny Dumas MD Primary Care Provider Referred, Self Attending Provider Unavailable Referred, Self Referring Provider Unavailable Dr. Alton Rodriguez DO Attending Provider Dr. Alton Rodriguez DO Emergency Provider Ryan CLERK RATING-C, Nohemy Attending Provider Ryan CLERK RATING-C, Nohemy Referring Provider Ryan CLERK RATING-C, Nohemy Other Provider [phone] Zachery MCCLOUD, Dr. Zeng Attending Provider Ryan CLERK RATING, Nohemy Consulting Unavailable Karri Bingham Attending Unavailable Ryan NP, Nohemy Referring Unavailable Lenny Dumas Primary Care Unavailable Jasmyn Ashley Attending Unavailable Talampas, Lenny D Primary Care Unavailable Talampas, Lenny D Referring Unavailable Ryan CLERK RATING, Nohemy Attending Unavailable Ryan CLERK RATING, Nohemy Referring Unavailable Talampas, Lenny D Primary Care Unavailable Talampas, Lenny D Primary Care Unavailable Ryan CLERK RATING, Nohemy Attending Unavailable Ryan CLERK RATING, Nohemy Referring Unavailable Referred, Self Attending Unavailable Referred, Self Referring Unavailable Talampas, Lenny D Primary Care Unavailable Talampas, Lenny D Attending Unavailable Talampas, Lenny D Referring Unavailable Talampas, Lenny D Primary Care Unavailable Alton Rodriguez Attending Unavailable Talampas, Lenny D Primary Care Unavailable TALAMPAS, LENNY D Primary Care Unavailable HARPSTER, BEN Attending Unavailable MARTINA WHARTON Referring Unavailable TALAMPAS, LENNY D Primary Care Unavailable HARPSTER, BEN Referring Unavailable TALAMPAS, LENNY D Primary Care Unavailable HARPSTER, BEN Referring Unavailable TALAMPAS, LENNY D Primary Care Unavailable HARPSTER, BEN Referring Unavailable TALAMPAS, LENNY D Primary Care Unavailable NOHEMY DAVIS Attending Unavailable HERSON ZHANG Attending Unavailable TALAMPAS, LENNY D Primary Care Unavailable TALAMPAS, LENNY D Attending Unavailable TALAMPAS, LENNY D Primary Care Unavailable TALAMPAS, LENNY D Primary Care Unavailable SUZIE SUAREZ Referring Unavailable TALAMPAS, LENNY D Primary Care Unavailable EMELI WRAY Attending Unavailable SELF Referring Unavailable TALAMPAS, LENNY D Primary Care Unavailable HARPSTER, BEN Referring Unavailable TALAMPAS, LENNY D Primary Care Unavailable TALAMPAS, LENNY D Attending Unavailable TALAMPAS, LENNY D Primary Care Unavailable RYAN, NOHEMY Referring Unavailable TALAMPAS, LENNY D Primary Care Unavailable SELF Referring Unavailable SIMON, GEO Attending Unavailable TALAMPAS, LENNY D Primary Care Unavailable SIMON, GEO Referring Unavailable TALAMPAS, LENNY D Primary Care Unavailable WISWELLGIOVANNIA Attending Unavailable TALAMPAS, LENNY D Primary Care Unavailable RYANNOHEMY Referring Unavailable TALAMPAS, LENNY D Primary Care Unavailable TALAMPAS, LENNY D Attending Unavailable TALAMPAS, LENNY D Primary Care Unavailable SELF Referring Unavailable SUZIE SUAREZ Attending Unavailable EDEL CASTILLO Attending Unavailable TALAMPAS, LENNY D Primary Care Unavailable HARPSTER, BEN Referring Unavailable WISWELL, KONSTANTIN Referring Unavailable WISWELL, KONSTANTIN Attending Unavailable TALAMPAS, LENNY D Primary Care Unavailable KALAHASTI, VIDYASAGAR Referring Unavailabl e KALAHASTI, VIDYASAGAR Attending Unavailabl e TALAMPAS, LENNY D Primary Care Unavailable HERSON ZHANG Attending Unavailable TALAMPAS, LENNY D Primary Care Unavailable TALAMPAS, LENNY D Attending Unavailable TALAMPAS, LENNY D Primary Care Unavailable TALAMPAS, LENNY D Primary Care Unavailable NOHEMY DAVIS Referring Unavailable TALAMPAS, LENNY D Referring Unavailable TALAMPAS, LENNY D Primary Care Unavailable TALAMPAS, LENNY D Primary Care Unavailable GABBY HUGHES Attending Unavailable KALAHASTI, VIDYASAGAR Referring Unavailabl e TALAMPAS, LENNY D Primary Care Unavailable KALAHASTI, VIDYASAGAR Referring Unavailabl e TALAMPAS, LENNY D Primary Care Unavailable TALAMPAS, LENNY D Primary Care Unavailable SHERRON LANCASTER Attending Unavailable TALAMPAS, LENNY D Primary Care Unavailable BEN FRANKLIN Referring Unavailable AMEENA LARSEN Attending Unavailable TALAMPAS, LENNY D Primary Care Unavailable WISWELL, KONSTANTIN Referring Unavailable TALAMPAS, LENNY D Primary Care Unavailable WISWELL, KONSTANTIN Referring Unavailable TALAMPAS, LENNY D Primary Care Unavailable Allergies Allergy Classification Reported Allergen(s) Allergy Type Date of Onset Reaction(s) Facility Anti-Epileptic Agents (1 source) gabapentin Drug Allergy 11-30-19 Intolerance [facility] Baclofen (1 source) Baclofen Drug Allergy 11-30-19 GI Upset [facility] NITROFURANTOIN, MACROCRYSTALS / Nitrofurantoin, Monohydrate (1 source) NITROFURANTOIN, MACROCRYSTALS / Nitrofurantoin, Monohydrate Drug Allergy 01-04-20 07 Hives, Swelling [facility] Opioid Agonists (1 source) traMADol Drug Allergy 12-13-19 Other: See Comments [facility] Quinolones (antibiotic) (1 source) Ciprofloxacin Drug Allergy 01-04-20 07 Hives, Swelling [facility] Sulfonamides (antibiotic) (1 source) Sulfonamides (Antibiotic) Drug Allergy 01-21-20 05 Hives, Swelling [facility] (20 sources) ciprofloxacin; Translations: [CIPRO] allergy to substance 08-22-19 11 swelling/hives [facility] Work Phone: (20 sources) nitrofurantoin; Translations: [MACROBID] allergy to substance 08-22-19 11 [facility] Work Phone: (9 sources) sulfamethoxazole / trimethoprim drug allergy 10-12-19 [facility] Work Phone: (20 sources) Sulfonamides (Antibiotic); Translations: [SULFA] allergy to substance 08-22-19 11 swelling/hives [facility] Work Phone: (20 sources) Baclofen; Translations: [BACLOFEN] Drug Allergy 11-30-19 GI Upset [facility] (20 sources) Ciprofloxacin; Translations: [CIPROFLOXACIN] Drug Allergy 01-04-20 07 Hives, Swelling [facility] (20 sources) gabapentin; Translations: [GABAPENTIN] Drug Allergy 11-30-19 Intolerance, Unknown [facility] (20 sources) NITROFURANTOIN, MACROCRYSTALS / Nitrofurantoin, Monohydrate; Translations: [NITROFURANTOIN MONOHYD/M-CRYST] Drug Allergy 01-04-20 07 Hives, Swelling [facility] (20 sources) Sulfonamides (Antibiotic); Translations: [SULFA (SULFONAMIDE ANTIBIOTICS)] Drug Allergy 01-21-20 05 Hives, Swelling [facility] (20 sources) traMADol; Translations: [TRAMADOL] Drug Allergy 12-13-19 Other: See Comments, Other [facility] Work Phone: (12 sources) Nitrofurantoin Drug Allergy 01-04-20 07 Hives, Swelling [facility] (6 sources) Sulfamethoxazole Drug Allergy 10-23-19 unknown [facility] (20 sources) Trimethoprim; Translations: [TRIMETHOPRIM] Drug Allergy 10-23-19 Unknown [facility] (4 sources) Sulfonamides (Antibiotic) Allergy to substance 12-16-19 Hives [facility] (6 sources) Baclofen Drug Allergy 11-30-19 GI bleeding [facility] (1 source) Ciprofloxacin Drug Allergy 06-28-19 [facility] Repository (1 source) gabapentin Drug Allergy 06-28-19 [facility] Repository (1 source) Nitrofurantoin Drug Allergy 06-28-19 [facility] Repository (1 source) Sulfamethoxazole Drug Allergy 06-28-19 [facility] Repository (1 source) Sulfonamides (Antibiotic) Drug allergy (disorder) 06-28-19 [facility] Repository (1 source) Trimethoprim Drug Allergy 06-28-19 [facility] Repository (1 source) hydroCHLOROthiazide ; Translations: [HYDROCHLOROTHIAZID E] Drug Allergy 11-20-19 [facility] Repository Medications Current Medications Medication Drug Class(es) Dates Sig (Normalized) Sig (Original) ALPRAZolam 0.25 mg oral tablet (19 sources) Benzodiazepine Start: 05-30-2024 End: 10-03-2024 ALPRAZolam (XANAX) 0.25 mg tablet Indications: Anxiety Take 1 tablet by mouth as needed for anxiety for up to 7 days. 7 tablet 09/26/2024 10/03/2024 Active Start: 05-29-2024 End: 07-25-2024 take 0.125-0.25 mg by mouth once daily as needed for anxiety Alprazolam 0.25 mg tablet Active 0.125 - 0.25 mg PO DAILY as needed for anxiety June 27, 2024 12:00am aspirin 81 mg delayed release oral tablet (20 sources) Platelet Aggregation Inhibitor, Nonsteroidal Anti-inflammatory Drug Start: 10-11-2016 take 1 tablet by mouth once daily ASPIR-81 81 MG TBEC One tablet by mouth daily ASPIRIN [id number] Azam Montalvo BARIATRIC PROGRAM COORDINATOR-C Start: 04-12-2012 End: 07-11-2024 take 1 tablet by mouth once daily aspirin, enteric coated (ADULT LOW DOSE ASPIRIN) 81 mg EC tablet Take 1 tablet by mouth once daily. 0 07/11/2024 Active Start: 08-21-2010 End: 10-26-2016 take 1 tablet by mouth once daily ASPIRIN 81 MG TABS One tablet by mouth daily ASPIRIN [id number] Adriana Rocha RN Start: 08-21-2010 End: 10-26-2016 take 1 tablet by mouth once daily ASPIRIN 81 MG TABS One tablet by mouth daily ASPIRIN [id number] Adriana Rocha RN Comment on above: Take 1 tablet by negrito th once daily. atenolol 25 mg oral tablet (20 sources) beta-Adrenergic Jeff Start: 11-01-2017 End: 06-27-2024 take 1 tablet by mouth once daily atenolol (TENORMIN) 25 mg tablet Take 1 tablet by mouth once daily. 90 tablet 3 03/01/2024 Active Start: 08-21-2010 End: 10-26-2016 take 1 tablet by mouth once daily ATENOLOL 25 MG TABS One tablet by mouth daily ATENOLOL [id number] Yvon Salazar MD Comment on above: TAKE 1 TABLET BY NEGRITO TH ONCE DAILY Take 1 tablet by negrito th once daily. benoxinate hydrochloride 4 mg/ml / fluorescein sodium 3 mg/ml ophthalmic solution (2 sources) Diagnostic Dye Start: 10-12-19 End: 10-13-19 fluorescein-benoxi leodan 0.3-0.4 % 1 Drop (FLURESS) busPIRone hydrochloride 10 mg oral tablet (2 sources) Start: 03-12-19 End: 04-11-19 take 1 tablet by mouth every twenty-four hours as needed busPIRone (BUSPAR) 10 mg tablet Take 1 tablet by mouth at bedtime as needed. Please take half to one tablet at night as needed. 30 tablet 03/12/2024 04/11/2024 Active cephalexin 500 mg oral capsule (10 sources) Cephalosporin Antibacterial Start: 04-12-19 End: 04-19-19 take 1 capsule by mouth twice daily cephALEXin (KEFLEX) 500 mg capsule Indications: Urinary frequency Take 1 capsule by mouth two times a day for 7 days. 14 capsule 0 04/12/2023 04/19/2023 Active Start: 03-16-2022 End: 03-26-2022 take 1 capsule by mouth three times daily cephALEXin (KEFLEX) 500 mg capsule Indications: Acute cystitis with hematuria Take 1 capsule by mouth three times daily for 10 days. 30 capsule 1 03/16/2022 03/26/2022 Active Start: 12-05-2021 End: 03-16-2022 take 1 capsule by mouth twice daily cephALEXin (KEFLEX) 500 mg capsule Take 1 capsule by mouth twice daily. 20 capsule 0 12/05/2021 03/16/2022 Discontinued Start: 12-05-2021 End: 12-05-2021 take 1 capsule by mouth four times daily cephALEXin (KEFLEX) 500 mg capsule Take 1 capsule by mouth four times daily for 10 days. 40 capsule 0 12/05/2021 12/05/2021 Discontinued Comment on above: Take 1 capsule by [facility] four times daily for 10 days. Take 1 capsule by [facility] twice daily. Take 1 capsule by [facility] three times daily for 10 days. Take 1 capsule by [facility] two times a day for 7 days. clobetasol propionate 0.0005 mg/mg topical ointment (10 sources) Corticosteroid Start: 06-27-2024 Clobetasol 0.05 % ointment Active 1 NMA TOPICAL DAILY as needed for skin irritation June 27, 2024 12:00am Start: 06-07-2024 End: 07-15-2024 clobetasol (Temovate) 0.05 % ointment Apply 1 Application topically daily. 06/07/2024 Active fluconazole 150 mg oral tablet (1 source) Azole Antifungal Start: 12-05-2021 End: 12-05-2021 fluconazole (DIFLUCAN) 150 mg tablet Take 1 tablet by mouth one time only for 1 dose. Repeat in 3 days as needed. 2 tablet 0 12/05/2021 12/05/2021 Active Comment on above: Take 1 tablet by [facility] one time only for 1 dose. Repeat in 3 days as needed. hydroCHLOROthiazide 25 mg oral tablet (20 sources) Thiazide Diuretic Start: 05-25-2024 take 1 tablet by mouth once daily hydroCHLOROthiazide 25 mg tablet Take 1 tablet by mouth once daily. 90 tablet 3 05/25/2024 Active iv contrast (will be provided with radiology test) (1 source) Start: 10-05-2023 End: 10-06-2023 inject 1 dose intravenously once iv contrast (will be provided with radiology test) CTA Chest. No IV access, insert saline lock prior to the sedation, infusion, injection for imaging exam. Discontinue saline lock post exam. If Pt. has a central line or IVAD, may access for administration according to line specific nursing protocol. Once exam is complete flush line and de-access according to line specific nursing protocol in the [place] contrast administration guidelines link. 1 Each 0 10/05/2023 10/06/2023 Active losartan potassium 100 mg oral tablet (20 sources) Angiotensin 2 Receptor Jeff Start: 11-01-2017 End: 03-01-2024 take 1 tablet by mouth once daily losartan (COZAAR) 100 mg tablet Take 1 tablet by mouth once daily. 90 tablet 3 03/01/2024 Active Start: 10-11-2016 take 1 tablet by negrito th once daily LOSARTAN POTASSIUM 100 MG TABS One tablet by mouth daily LOSARTAN POTASSIUM [id number] Yvon Salazar MD Comment on above: TAKE 1 TABLET BY NEGRITO TH ONCE DAILY Take 1 tablet by negrito once daily. tropicamide 10 mg/ml ophthalmic solution (2 sources) Anticholinergic Start: 10-12-2023 End: 10-13-2023 tropicamide 1 % 1 Drop (MYDRIACYL) Completed/Discontinued Medications Medication Drug Class(es) Dates Sig (Normalized) Sig (Original) ascorbic acid 1000 mg oral tablet (20 sources) Vitamin C End: 07-15-2024 take 2 tablets by mouth three times weekly Ascorbic Acid (VITAMIN C) 1,000 mg tablet Take 2,000 mg by mouth. Three times a week 07/15/2024 Discontinued (Course of therapy completed) Comment on above: Take 2,000 mg by negrito . Three times a week Calcium (20 sources) Phosphate Binder, Calcium End: 07-15-2024 take 1 capsule by mouth three times weekly calcium carb/D3/magnesium/z inc (CALCIUM CARB-D3-MAG OX-ZINC OX ORAL) Take by mouth. 1 capsule three times a week 07/15/2024 Discontinued (Discontinued by Patient) take 1 capsule by [facility] three times weekly calcium carb/D3/magnesium/zinc (CALCIUM CARB-D3-MAG OX-ZINC OX ORAL) Take by mouth. 1 capsule three times a week Active take 1 capsule by [facility] three times weekly calcium carb/D3/magnesium/zinc (CALCIUM CARB-D3-MAG OX-ZINC OX ORAL) Take by mouth. 1 capsule three times a week 0 Active Comment on above: Take by mouth. 1 cap yelitza three times a week calcium carbonate 750 mg chewable tablet (20 sources) Start: 12-14-2021 End: 07-15-2024 take 1 tablet by mouth twice daily Calcium Carbonate (Tums Extra Strength Smoothies) 300 mg (750 mg) tablet,chewable Discontinued 300 mg PO TWICE A DAY December 14, 2021 12:00am June 27, 2024 6:38pm Comment on above: Take by mouth as nee ded. calcium carbonate / vitamin D (2 sources) Start: 11-05-2016 take 1 tablet by mouth twice daily CALCIUM 600+D 600-400 MG-UNIT TABS One tablet by mouth twice daily CALCIUM CARBONATE-VITAMIN D [id number] Azam Montalvo BARIATRIC PROGRAM COORDINATOR-C cholecalciferol, vitamin D3, (VITAMIN D3 ORAL) (20 sources) End: 07-15-2024 take 21377 [IU] by mouth two times weekly cholecalciferol, vitamin D3, (VITAMIN D3 ORAL) Take 10,000 Units by mouth. Twice a week 07/15/2024 Discontinued (Discontinued by Patient) take 85461 [IU] by m outh two times weekly cholecalciferol, vitamin D3, (VITAMIN D3 ORAL) Take 10,000 Units by mouth. Twice a week Active take 62199 [IU] by m outh two times weekly cholecalciferol, vitamin D3, (VITAMIN D3 ORAL) Take 10,000 Units by mouth. Twice a week 0 Active Comment on above: Take 10,000 Units by mouth. Twice a week cyclobenzaprine hydrochloride 10 mg oral tablet (6 sources) Muscle Relaxant Start: 020 End: take 1 tablet by mouth three times daily as needed for muscle spasms Cyclobenzaprine 10 MG tablet Discontinued 10 mg PO THREE TIMES A DAY as needed for Muscle Spasm 9 3 0 October 23, 2019 12:00am October 25, 2019 12:00am October 26, 2019 12:02am DULoxetine 20 mg delayed release oral capsule (20 sources) Serotonin and Norepinephrine Reuptake Inhibitor Start: 023 End: 024 take 1 capsule by mouth once daily DULoxetine (CYMBALTA) 20 mg capsule Indications: Depression with anxiety , Cervical radiculopathy , Cervical disc herniation Take 1 capsule by mouth once daily. 90 capsule 2 11/21/2023 01/02/2024 Discontinued Comment on above: Take 1 capsule by [facility] once daily. FLUoxetine 40 mg oral capsule (14 sources) Serotonin Reuptake Inhibitor Start: 011 End: 012 take 1 tablet by mouth once daily PROZAC 40 MG CAPS One tablet by mouth daily FLUOXETINE HCL [id number] Nanette Watts lysine 500 mg oral tablet (20 sources) End: 025 lysine 500 mg tab Take 500 mg by mouth as needed. 07/15/2024 Discontinued (Discontinued by Patient) Comment on above: Take 500 mg by mouth as needed. MULTIPLE VITAMIN (12 sources) Start: 011 take 1 tablet by mouth once daily MULTIVITAMINS TABS One tablet by mouth daily MULTIPLE VITAMIN [id number] Nanette Watts Start: 08-21-2010 End: 06-10-2011 take 1 tablet by mouth once daily MULTIVITAMINS TABS One tablet by mouth daily MULTIPLE VITAMIN [id number] Alex Mcginnis MD MULTIPLE VITAMIN (2 sources) Start: 08-21-2010 take 1 tablet by mouth once daily MULTIVITAMINS TABS One tablet by mouth daily MULTIPLE VITAMIN [id number] Nanette Watts Start: 08-21-2010 End: 06-10-2011 take 1 tablet by mouth once daily MULTIVITAMINS TABS One tablet by mouth daily MULTIPLE VITAMIN [id number] Alex Mcginnis MD mupirocin 0.02 mg/mg topical ointment (20 sources) RNA Synthetase Inhibitor Antibacterial Start: 07-20-2024 End: 11-01-2024 mupirocin (BACTROBAN) 2 % ointment Apply to affected area three times a day. Treat for 10 days or as directed. Apply intranasal 30 g 07/20/2024 11/01/2024 Discontinued Start: 08-11-2022 End: 07-15-2024 mupirocin (BACTROBAN) 2 % oi ntment Apply to affected area three times daily. Treat for 10 days or as directed. Apply intranasal 30 g 08/11/2022 07/15/2024 Discontinued (Discontinued by Patient) Comment on above: Apply to affected ar ea three times daily. Treat for 10 days or as directed. Apply intranasal omeprazole 20 mg delayed release oral capsule (20 sources) Proton Pump Inhibitor Start: 01-05-20 End: 07-16-19 take 1 capsule by mouth once daily before breakfast omeprazole (PRILOSEC) 20 mg capsule Indications: Gastroesophageal reflux disease without esophagitis , LPRD (laryngopharyngeal reflux disease) Take 1 capsule by mouth daily before breakfast. 1/2 hr before meal. 90 capsule 3 04/22/2023 07/15/2024 Discontinued (Discontinued by Patient) Start: 08-11-2022 take 1 tablet by negrito once daily before breakfast Omeprazole Magnesium (PRILOSEC OTC) 20 mg tablet Take 1 tablet by mouth daily before breakfast. 1/2 hr before meal. 0 08/11/2022 Active Start: 12-14-2021 End: 02-23-2022 take 1 tablet by mouth once daily Omeprazole Magnesium (Prilosec Otc) 20 mg tablet,delayed release (DR/EC) Discontinued 20 mg PO DAILY December 14, 2021 12:00am February 23, 2022 3:41pm Comment on above: Take 1 tablet by negrito daily before breakfast. 1/2 hr before meal. Take 1 capsule by mo [facility] daily before breakfast. 1/2 hr before meal. perflutren lipid microspheres 1.3 mL in NaCl (PF) 0.9% 10 mL injection (DEFINITY) (7 sources) Start: 11-30-2021 End: 03-16-2022 perflutren lipid microspheres 1.3 mL in NaCl (PF) 0.9% 10 mL injection (DEFINITY) Start: 11-30-2021 End: 03-01-2023 perflutren lipid microsphere s 1.3 mL in NaCl (PF) 0.9% 10 mL injection (DEFINITY) 125 ml sodium chloride 9 mg/ml prefilled syringe (7 sources) Start: 11-30-2021 End: 03-01-2023 sodium chloride 0.9 % (flush) 10 mL (BD POSIFLUSH) tacrolimus 0.0003 mg/mg topical ointment (11 sources) Calcineurin Inhibitor Immunosuppressant Start: 07-19-2024 End: 11-01-2024 tacrolimus (PROTOPIC) 0.03 % ointment Indications: Eczematous dermatitis of upper and lower eyelids of both eyes Apply to affected area once daily. 30 g 07/19/2024 11/01/2024 Discontinued tiZANidine 2 mg oral tablet (8 sources) Central alpha-2 Adrenergic Agonist Start: 08-15-2023 End: 11-04-2023 take 1 tablet by mouth every six hours as needed tiZANidine (ZANAFLEX) 2 mg tablet Indications: Cervical radiculopathy Take 1-2 tablets by mouth every 6 hours as needed. 90 tablet 08/15/2023 11/04/2023 Discontinued (Course of therapy completed) Vitamin B Complex (20 sources) End: 07-15-2024 take 1 capsule by mouth once vitamin B complex (B COMPLEX 1 ORAL) Take 1 capsule by mouth every Tuesday and Tuesday. 07/15/2024 Discontinued (Discontinued by Patient) take 1 capsule by mouth once vit acosta B complex (B COMPLEX 1 ORAL) Take 1 capsule by mouth every Tuesday and Tuesday. Active take 1 capsule by mouth once vit acosta B complex (B COMPLEX 1 ORAL) Take 1 capsule by mouth every Tuesday and Tuesday. 0 Active Comment on above: Take 1 capsule by mo ut every Tuesday and Tuesday. zinc acetate 50 mg oral capsule (20 sources) End: 07-15-2024 take 1 capsule by mouth three times weekly Zinc Acetate, Oral, 50 mg (zinc) cap Take 1 capsule by mouth. Three times a week 07/15/2024 Discontinued (Discontinued by Patient) Comment on above: Take 1 capsule by mo ut. Three times a week Problems Active Problems Problem Classification Problem Date Documented Da te Episodic/Chronic Abdominal pain (6 sources) Right lower quadrant pain; Translations: [Right lower quadrant pain] 02-23-2022 Episodic Adjustment disorders (1 source) Grief finding; Translations: [Adjustment disorder with depressed mood] 11-21-2023 Chronic Administrative/social admission (2 sources) Persons encountering health services in other specified circumstances; Translations: [Other reasons for seeking consultation] Episodic Allergic reactions (6 sources) Eczema; Translations: [Other specified dermatitis] Onset: 5 08-18-2024 Episodic Anxiety disorders (20 sources) Anxiety; Translations: [Anxiety disorder, unspecified] Onset: 1 10-31-2020 Chronic Aortic; peripheral; and visceral artery aneurysms (20 sources) Aortic aneurysm; Translations: [Thoracic aortic aneurysm without rupture] Onset: 1 10-11-2016 Chronic Cataract (3 sources) Artificial lens present; Translations: [Presence of intraocular lens] Onset: 5 10-12-2023 Chronic Disorders of lipid metabolism (20 sources) Hyperlipidemia; Translations: [Raised low density lipoprotein cholesterol] Onset: 1 08-21-2010 Chronic Endometriosis (20 sources) Uterine adenomyosis; Translations: [Adenomyosis of the uterus] Onset: 5 03-22-2024 Chronic Esophageal disorders (20 sources) Gastroesophageal reflux disease; Translations: [Gastro-esophageal reflux disease without esophagitis] Onset: 7 10-11-2016 Chronic Essential hypertension (20 sources) Essential hypertension; Translations: [Essential (primary) hypertension] Onset: 5 05-29-2024 Chronic Genitourinary symptoms and ill-defined conditions (4 sources) Increased frequency of urination; Translations: [Frequency of micturition] Episodic Glaucoma (3 sources) Preglaucoma, unspecified, bilateral; Translations: [Preglaucoma, unspecified] Onset: 5 10-12-2023 Chronic Headache; including migraine (1 source) Headache; including migraine; Translations: [Headache, unspecified] Onset: 5 Heart valve disorders (7 sources) Mitral valve disorder; Translations: [Other nonrheumatic mitral valve disorders] Onset: 1 08-21-2010 Chronic Malaise and fatigue (1 source) Fatigue; Translations: [Chronic fatigue, unspecified] 08-11-2022 Chronic Malaise and fatigue (3 sources) Fatigue; Translations: [Other fatigue] Episodic Menstrual disorders (1 source) Menorrhagia; Translations: [Excessive and frequent menstruation with regular cycle] 06-17-2023 Chronic Miscellaneous mental health disorders (2 sources) Pica; Translations: [Other specified eating disorder] Chronic Mood disorders (20 sources) Major depressive disorder, single episode, moderate; Translations: [Major depressive affective disorder, single episode, moderate] Onset: 3 Chronic Nonmalignant breast conditions (2 sources) Breast finding ; Translations: [Dense breast tissue] 05-05-2023 Episodic Nonspecific chest pain (20 sources) Chest pain; Translations: [Chest pain, unspecified] Onset: 1 10-11-2016 Episodic Other aftercare (5 sources) Patient encounter status; Translations: [Encounter for therapeutic drug level monitoring] Episodic Other aftercare (1 source) Long-term current use of drug therapy; Translations: [Other termination clerk (current) drug therapy] 11-21-2023 Episodic Other and unspecified benign neoplasm (1 source) Lipoma of skin and subcutaneous tissue; Translations: [Benign lipomatous neoplasm of skin and subcutaneous tissue of unspecified sites] 08-18-2024 Episodic Other bone disease and musculoskeletal deformities (2 sources) Osteopenia; Translations: [Other specified disorders of bone density and structure, unspecified site] 08-27-2024 Episodic Other bone disease and musculoskeletal deformities (2 sources) Other specified disorders of bone density and structure, unspecified site; Translations: [Other specified disorders of bone density and structure, unspecified site] Onset: 5 Episodic Other circulatory disease (2 sources) Elevated blood-pressure reading without diagnosis of hypertension; Translations: [Elevated blood-pressure reading, without diagnosis of hypertension] 07-05-2024 Episodic Other congenital anomalies (20 sources) Marfan's syndrome; Translations: [Marfan's syndrome, unspecified] Onset: 1 08-21-2010 Chronic Other congenital anomalies (1 source) Marfan's syndrome with ocular manifestations; Translations: [Marfan's syndrome with ocular manifestation (HCC)] Onset: 5 Chronic Other congenital anomalies (1 source) Marfan's syndrome, unspecified; Translations: [Marfan's syndrome (HCC)] Onset: 1 Chronic Other connective tissue disease (1 source) Muscle pain; Translations: [Myalgia, unspecified site] Episodic Other connective tissue disease (6 sources) Pain in right arm; Translations: [Pain in right arm] 10-24-2019 Episodic Other connective tissue disease (3 sources) Ganglion cyst; Translations: [Ganglion, unspecified site] Episodic Other eye disorders (2 sources) Bilateral vitreous floaters; Translations: [Other vitreous opacities, bilateral] 10-12-2023 Chronic Other eye disorders (1 source) Other disorders of optic disc, bilateral; Translations: [Suspicious optic nerve cupping of both eyes] Onset: 5 Chronic Other eye disorders (1 source) Other vitreous opacities, bilateral; Translations: [Vitreous floaters of both eyes] Onset: 5 Chronic Other gastrointestinal disorders (1 source) Abdominal bloating; Translations: [Abdominal distension (gaseous)] 09-12-2022 Episodic Other inflammatory condition of skin (1 source) Pruritus, unspecified; Translations: [Pruritus] Onset: 5 Episodic Other inflammatory condition of skin (1 source) Other prurigo; Translations: [Pruritic rash] Onset: 5 Episodic Other liver diseases (20 sources) Liver cyst; Translations: [Other specified diseases of liver] Onset: 2 04-20-2021 Chronic Other liver diseases (2 sources) Fatty (change of) liver, not elsewhere classified; Translations: [Other chronic nonalcoholic liver disease] Chronic Other lower respiratory disease (18 sources) Dyspnea; Translations: [Shortness of breath] Onset: 1 08-21-2010 Episodic Other lower respiratory disease (1 source) Snoring; Translations: [Snoring] 05-29-2024 Episodic Other lower respiratory disease (1 source) Other nonspecific abnormal finding of lung field; Translations: [Indeterminate pulmonary nodules] Onset: 5 Episodic Other lower respiratory disease (1 source) Shortness of breath; Translations: [Shortness of breath] Onset: 5 Episodic Other nervous system disorders (2 sources) Cervical nerve root compression; Translations: [Cervical root disorders, not elsewhere classified] Chronic Other nervous system disorders (1 source) Facial paresthesia; Translations: [Anesthesia of skin] 06-27-2024 Episodic Other non-traumatic joint disorders (4 sources) Multiple joint pain; Translations: [Pain in unspecified joint] Episodic Other non-traumatic joint disorders (1 source) Pain in left knee; Translations: [Pain in joint, lower leg] Episodic Other nutritional; endocrine; and metabolic disorders (10 sources) Obesity; Translations: [Other obesity due to excess calories] Onset: 7 10-11-2016 Chronic Other nutritional; endocrine; and metabolic disorders (20 sources) Obese class I; Translations: [Obesity, unspecified] Onset: 1 10-31-2020 Chronic Other nutritional; endocrine; and metabolic disorders (1 source) Obese class II; Translations: [Obesity, unspecified] Chronic Other nutritional; endocrine; and metabolic disorders (2 sources) Obesity caused by energy imbalance; Translations: [Other obesity due to excess calories] 09-12-2022 Chronic Other nutritional; endocrine; and metabolic disorders (1 source) Other obesity due to excess calories; Translations: [Class 1 obesity due to excess calories without serious comorbidity with body mass index (BMI) of 32.0 to 32.9 in adult] Onset: 5 Chronic Other nutritional; endocrine; and metabolic disorders (1 source) Body mass index (BMI) 32.0-32.9, adult; Translations: [Class 1 obesity due to excess calories without serious comorbidity with body mass index (BMI) of 32.0 to 32.9 in adult] Onset: 5 Chronic Other screening for suspected conditions (not mental disorders or infectious disease) (1 source) Imaging result abnormal; Translations: [Abnormal findings on diagnostic imaging of other specified body structures] 02-09-2024 Chronic Other screening for suspected conditions (not mental disorders or infectious disease) (20 sources) Encounter for screening for lipoid disorders; Translations: [Encounter for screening for diseases of the blood and blood-forming organs and certain disorders involving the immune mechanism] Onset: 5 Resolved: 1 10-11-2016 Episodic Other skin disorders (1 source) Loss of hair; Translations: [Nonscarring hair loss, unspecified] Episodic Other skin disorders (1 source) Alopecia areata; Translations: [Alopecia areata, unspecified] 03-12-2024 Episodic Other skin disorders (1 source) Rash and other nonspecific skin eruption; Translations: [Rash and nonspecific skin eruption] Onset: 5 Episodic Residual codes; unclassified (1 source) Hypersomnia, unspecified; Translations: [Hypersomnia, unspecified] Onset: 5 Chronic Residual codes; unclassified (20 sources) Family history of Marfan syndrome; Translations: [Family history of other congenital malformations, deformations and chromosomal abnormalities] 03-11-2018 Episodic Rheumatoid arthritis and related disease (1 source) Inflammatory polyarthropathy; Translations: [Inflammatory polyarthropathy (HCC)] Onset: 5 Chronic Screening and history of mental health and substance abuse codes (4 sources) Ex-tobacco user; Translations: [Personal history of nicotine dependence] Onset: 5 11-01-2024 Episodic Spondylosis; intervertebral disc disorders; other back problems (20 sources) Displacement of cervical intervertebral disc; Translations: [Other cervical disc displacement, unspecified cervical region] Onset: 1 Resolved: 1 Chronic Spondylosis; intervertebral disc disorders; other back problems (20 sources) Cervical radiculopathy; Translations: [Radiculopathy, cervical region] Onset: 1 11-01-2020 Episodic Thyroid disorders (1 source) Goiter; 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-2023 Chronic Unclassified (7 sources) Thyroid disorder screening ; Translations: [Encounter for screening for other suspected endocrine disorder] Onset: 7 10-11-2016 Unclassified (7 sources) History and physical examination, annual for health maintenance ; Translations: [Encounter for general adult medical examination without abnormal findings] Onset: 7 10-11-2016 Unclassified (6 sources) Procedure carried out on subject; Translations: [Encounter for screening for nutritional disorder] Onset: 7 10-11-2016 Unclassified (2 sources) Patient encounter status 05-11-2024 Unclassified (1 source) Rash Onset: 5 Unclassified (1 source) Obesity, Class I, BMI 30-34.9; Translations: [Obesity, Class I, BMI 30-34.9] Onset: 1 Unclassified (1 source) Class 1 obesity due to excess calories without serious comorbidity with body mass index (BMI) of 32.0 to 32.9 in adult; Translations: [Class 1 obesity due to excess calories without serious comorbidity with body mass index (BMI) of 32.0 to 32.9 in adult] Onset: 5 Unclassified (1 source) Dense breast tissue; Translations: [Dense breast tissue] Onset: 5 Urinary tract infections (1 source) Acute cystitis; Translations: [Acute cystitis with hematuria] Episodic Past or Other Problems Problem Classification Problem Date Documented Da te Episodic/Chronic Benign neoplasm of uterus (20 sources) Intramural leiomyoma of uterus; Translations: [Intramural leiomyoma of uterus] Onset: 03-22-2024 03-22-2024 Episodic Coma; stupor; and brain damage (2 sources) Daytime somnolence; Translations: [Somnolence] Onset: 05-29-2024 05-29-2024 Episodic Complications of surgical procedures or medical care (2 sources) Drug therapy finding; Translations: [Unspecified adverse effect of drug or medicament, initial encounter] Onset: 01-02-2024 01-02-2024 Episodic Conditions associated with dizziness or vertigo (7 sources) Dizziness and giddiness; Translations: [Dizziness and giddiness] Onset: 08-21-2010 08-21-2010 Episodic Diabetes mellitus without complication (4 sources) Hyperglycemia; Translations: [Impaired fasting glucose] Onset: 07-20-2024 07-20-2024 Episodic Headache; including migraine (20 sources) Chronic mixed headache syndrome; Translations: [Other headache syndrome] Onset: 10-31-2020 11-01-2020 Episodic Inflammation; infection of eye (except that caused by tuberculosis or sexually transmitteddisease) (5 sources) Eczematous dermatitis of bilateral eyelids; Translations: [Eczematous dermatitis of right upper eyelid] Onset: 07-19-2024 08-09-2024 Episodic Other aftercare (1 source) Encounter for therapeutic drug level monitoring; Translations: [Encounter for therapeutic drug monitoring] Onset: 09-11-2024 Episodic Other aftercare (1 source) Other termination clerk (current) drug therapy; Translations: [Encounter for long-term (current) use of medications] Onset: 06-01-2024 Episodic Other and unspecified benign neoplasm (20 sources) Lipoma of skin and subcutaneous tissue (excluding face); Translations: [Benign lipomatous neoplasm of skin and subcutaneous tissue of other sites] Onset: 01-20-2005 Resolved: 10-31-2020 10-31-2020 Episodic Other female genital disorders (20 sources) Mass of uterine adnexa; Translations: [Other specified conditions associated with female genital organs and menstrual cycle] Onset: 04-20-2021 04-20-2021 Episodic Other lower respiratory disease (1 source) Snoring; Translations: [Snoring] Onset: 05-29-2024 Episodic Other nervous system disorders (1 source) Anesthesia of skin; Translations: [Numbness and tingling of right face] Onset: 06-27-2024 Episodic Other nervous system disorders (1 source) Paresthesia of skin; Translations: [Numbness and tingling of right face] Onset: 06-27-2024 Episodic Other nutritional; endocrine; and metabolic disorders (9 sources) Body mass index (BMI) 28.0-28.9, adult; Translations: [Body mass index (BMI) 28.0-28.9, adult] Onset: 10-11-2016 10-11-2016 Episodic Ovarian cyst (4 sources) Cyst of right ovary; Translations: [Unspecified ovarian cyst, right side] Onset: 03-22-2024 Episodic Residual codes; unclassified (1 source) Family history of other congenital malformations, deformations and chromosomal abnormalities; Translations: [Family history of Marfan syndrome] Onset: 03-11-2018 Episodic Unclassified (9 sources) Family history of hereditary disease; Translations: [Family history of other specified conditions] Onset: 10-11-2016 10-11-2016 Episodic Results Test Name Value Interpretation Reference Range Facility [facility] 12-24-2024 CNOV Office Visit (PULMWS ) ITZEL SORIANO ([id number]) 1965 F Date Time Provider Department 12/24/24 1:30 PM EDEL CASTILLO PULMWS During your visit today, we recorded the following information about you: Edel Castillo APRN.CNP 12/24/2024 4:53 PM Signed Chief Complaint: Follow up to review initial LDCT scan PRIMARY CARE PHYSICIAN: Lenny Dumas MD PULMONARY PROVIDER: N/A FIREFIGHTER MARINE: Dr. Mayers Current or Ex-smoker? [Ex] Exam Type: Baseline LDCT Number of Pack Years: 33 Number of Years since Quit: 11 Impression / Recommendations Itzel Soriano presents for review of lung cancer screening initial exam and nodule evaluation. 1. Indeterminate pulmonary nodules (R91.8) - Multiple small, stable pulmonary nodules identified on low-dose CT scan; no significant changes compared to prior imaging from 2019. - Nodules are common, especially in patients with a history of smoking; explained that most remain benign but require surveillance for early detection of malignancy. 2. Encounter for screening for malignant neoplasm of respiratory organs (Z12.2) - Annual low-dose CT scan recommended to monitor for any changes; order placed for next year. - Discussed rationale for annual surveillance, including the importance of early detection of potential malignancy. 3. Personal history of nicotine dependence (Z87.891) - Former smoker, quit over 11 years ago; no current use of marijuana, vaping, or cigars. - Encouraged continued abstinence from smoking and avoidance of secondhand smoke exposure. I spent a total of 37 minutes on the date of the service which included preparing to see the patient, [id number] patient care, completing clinical documentation, obtaining and/or reviewing separately obtained history, performing a medically appropriate examination, counseling and educating the patient/family/caregiv er, ordering medications, tests, or procedures, communicating with other HCPs (not separately reported), independently interpreting results (not separately reported), and communicating results to the patient/family/caregiv er. EDEL CASTILLO, JOHNATHAN.NEEDLE LOOM WEAVER History of Present Illness: The patient is a 59-year-old female with hypertension, presenting for evaluation of pulmonary nodules on surveillance low-dose CT chest. Patient will continue to be eligible for lung cancer screening through 15 yrs smoke free OR age 80 per USPTF guidelines (however if patient has Medicare/Medicaid, only eligible through age 77)-- whichever occurs first. Respiratory symptoms include: Recent Respiratory Infection: No SOB: Yes Chest tightness: Yes Coughing: Yes: Without mucus Hemoptysis: No Wheezing: No Fever/Chills: No Unintentional weight loss: No Itzel Soriano is a 59-year-old female with a history of HTN, presenting for follow-up on lung nodules. Lung Nodules: - Recent CT scan showed small lung nodules. - Denies recent respiratory infections. - Denies significant cough or sputum production. - Denies use of marijuana, vaping, or cigars. - Former smoker, quit over 11 years ago; occasionally tempted to smoke. - Family history of lung cancer in brother, who recently had a lobectomy. - Uncertain about paternal grandmother's history of lung cancer; known history of uterine and breast cancer. Dyspnea: - Denies significant dyspnea. - Recent pulmonary function tests were negative. - Followed up with dragger; reports high BP and edema. - Currently on spironolactone; recently discontinued prednisone 2 days ago. - Reports mild chest tightness, attributing it to GERD. - Taking Prilosec for GERD management. Modified Medical Research [place] Dyspnea Scale (MMRC): On level ground I walk slower than people of the same age because of breathlessness, or have to stop for breath when walking at my own pace 2 ECOG Performance Status: 0- Fully active, able to carry on all pre-disease performance w/o restriction. PHYSICAL EXAMINATION: BP (P) 108/62 Pulse (P) 93 Resp (P) 14 Wt (P) 96.2 kg (212 lb) LMP 07/11/2024 (Within Days) SpO2 (P) 95% BMI (P) 32.96 kg/m? Physical Exam Constitutional: General: She is not in acute distress. Appearance: Normal appearance. She is not ill-appearing or toxic-appearing. HENT: Head: Normocephalic and atraumatic. Nose: Nose normal. Cardiovascular: Rate and Rhythm: Normal rate and regular rhythm. Pulses: Normal pulses. Heart sounds: Normal heart sounds. No murmur heard. No friction rub. No gallop. Pulmonary: Effort: Pulmonary effort is normal. No respiratory distress. Breath sounds: Normal breath sounds. No stridor. No wheezing, rhonchi or rales. Chest: Chest wall: No tenderness. Musculoskeletal: Cervical back: Normal range of motion. (more content not included)... Normal [facility] CNOVon 12-03-2024 CNOV Office Visit (ALLEST ) ITZEL SORIANO ([id number]) 1965 F Date Time Provider Department 12/03/24 1:30 PM EMELI WRAY During your visit today, we recorded the following information about you: Pulse Weight 73/minute 94.4 kg Emeli Wray MD 12/03/2024 4:44 PM Addendum This is a request for consultation by SELF Consult requested for an opinion regarding the evaluation and treatment of the above. My final impression and recommendations will be communicated back to the requesting physician by way of the shared medical record or letter via US mail.. Recording using [employer] software for draft documentation of the visit was discussed with the patient/authorized outbound call center representative; all questions welcomed and answered. Patient/authorized outbound call center representative agreed to proceed Itzel Soriano is a 59 year old patient who presents with chief complaint: rash Pruritic Rash: - Onset: April-May. - Initial location: Hairline, ears, and neck. - Progression: Spread to neck, trunk, and eyelids; described as spotty and growing. - Severity: Currently rated 7-8/10, with worst being 10/10; worsens in the evening. - Associated symptoms: Pruritus, particularly severe at night; no fluid-filled vesicles. - Aggravating factors: Use of triamcinolone cream caused burning sensation. - Alleviating factors: Temporary relief with tacrolimus ointment on eyelids. - Previous treatments: - Cortisone cream prescribed by filler sifter machine; discontinued due to pain. - Tacrolimus ointment for eyelids; provided temporary relief. - Benadryl taken twice since July. - Prednisone taper prescribed but not yet started. - Dermatology evaluation: Diagnosed with dermatitis; prescribed triamcinolone cream. - Ophthalmology evaluation: Prescribed cortisone cream for eyelids. - Suspected triggers: - Initially thought to be shampoo or laundry detergent; changes made without improvement. - Considered new medication (HCTZ) as a trigger; discontinued. - No new jewelry or hair dye used. - History of allergies to soaps. - Uses Biolage shampoo and leave-in conditioner; avoids oils due to alopecia. - Sensitive to chemical smells; experiences migraines and nausea. - No pets; moved feather pillows away. - Family history: Marfan syndrome. - Recent life changes: New job; a year ago. Answers submitted by the patient for this visit: Allergy Review of Symptoms (Submitted on 12/03/2024) Itchy Eyes: Yes Eye pain: Yes Ringing in Ears: Yes Sore throat: Yes Throat clearing: Yes Shortness of breath: Yes Wheezing: Yes Headaches: Yes A rash: Yes Itching: Yes Dry skin: Yes Flushing: Yes Patient Entered Data 12/03/2024 Collateral History Allergic rhinitis Not Sure Skin tested No Have asthma No Eczema / Dermatitis Not Sure Sinus infections Not Sure Nasal Polyps Not Sure Urticaria / Hives Yes Angioedema Not Sure Food Allergy No Stinging insect allergy Not Sure Penicillin allergy No 12/03/2024 Environmental Exposure Pets No pets Mouse infestation No Cockroach infestation No Mold or Mildew No Air conditioning Yes Dust mite covers No Cigarette / Cigar smoke No Vaping No Current Outpatient Medications Medication Sig predniSONE (DELTASONE) 10 mg tablet Take 4 tablets for 4 days, then 3 tablets for 4 days, then two tablets for 4 days, then one table for 4 days then stop. Take with breakfast. triamcinolone acetonide (KENALOG) 0.1 % cream Apply 1 application to affected area three times a day for 14 days. Apply to affected area. spironolactone (ALDACTONE) 25 mg tablet Take 1 tablet by mouth once daily. omeprazole (PRILOSEC) 20 mg capsule Take 20 mg by mouth once daily. aspirin, enteric coated (ADULT LOW DOSE ASPIRIN) 81 mg EC tablet Take 1 tablet by mouth once daily. losartan (COZAAR) 100 mg tablet Take 1 tablet by mouth once daily. atenolol (TENORMIN) 25 mg tablet Take 1 tablet by mouth once daily. No current facility-administered medications for this visit. ALLERGIES Allergen Reactions Baclofen GI Upset Cipro [Ciprofloxaci* Hives, Swelling Gabapentin Intolerance Hctz [Hydrochloroth* Rash Macrobid [Nitrofura* Hives, Swelling Sulfa (Sulfonamide * Hives, Swelling Tramadol Other: See Comments when taken with Baclofen Trimethoprim Unknown PAST MEDICAL HISTORY Diagnosis Date Aortic root dilation Cervical radiculopathy 04/03/2020 Cervical spondylosis without myelopathy 04/03/2020 Chronic mixed headache syndrome 10/31/2020 Coitus painful for female Endometriosis Family history of Marfan syndrome H/O alopecia areata Infertility, female LIPOMA OTHER SKIN AND SUBCUTANEOUS(Left back) 01/20/2005 Major depressive disorder, single episode, mild 2007 Marfan's syndrome (HCC) Lens dislocation and aortic root dilation Ovarian cyst Uterine fibroid SOC (more content not included)... Normal [facility] CNOV Office Visit (OBGYWM ) BOITZEL ([id number]) 1965 F Date Time Provider Department 12/03/24 11:10 AM KON[place]IN RIVER OBGYWM During your visit today, we recorded the following information about you: Blood pressure Weight 120/80 94.4 kg Konstantin River MD 12/03/2024 5:56 PM Signed Itzel Soriano is a 59 year old female who presents for problem visit - perineal skin change. HPI: Patient has not been using Clobetasol cream as prescribed. She was having pruritus around anus with some bleeding. She suspects the bleeding was from excoriations around anus. Stools have become looser and smaller in caliber. 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 Has engaged in anal intercourse in the past. Patient had a picture on her phone of tea anal erythema and excoriations that she had been experiencing. OB History Gravida0 Para0 Term0 Preterm0 AB0 Living0 SAB0 IAB0 Ectopic0 Multiple0 Live Births0 Quality Rep History LMP: 07/11/2024 (Within Days), Having periods Age at Menarche: 14 Age at First : Age at Menopause: Quality Rep History Comments: Sexual Activity: Not Asked; Male; not asked Contraception: None Menstrual Tracking History Flowsheet Row Office Visit from 05/11/2024 in OB/Gynecology Period Cycle (Days) 28 Period Duration (Days) 6 Menstrual Flow Heavy PAST MEDICAL HISTORY Diagnosis Date Aortic root dilation Cervical radiculopathy 04/03/2020 Cervical spondylosis without myelopathy 04/03/2020 Chronic mixed headache syndrome 10/31/2020 Coitus painful for female Endometriosis Family history of Marfan syndrome H/O alopecia areata Infertility, female LIPOMA OTHER SKIN AND SUBCUTANEOUS(Left back) 01/20/2005 Major depressive disorder, single episode, mild 2007 Marfan's syndrome (HCC) Lens dislocation and aortic root dilation Ovarian cyst Uterine fibroid PAST SURGICAL HISTORY Procedure Laterality Date CATARACT SURGERY, COMPLEX Right 05/15/1992 CLEAR LENSECTOMY Left 03/24/2001 Left Lensectomy and anterior Chamber IOL Placement- Performed by Dr. Roberto Lucero CLEAR LENSECTOMY Right 09/19/2013 Lensectomy with Anterior Chamber IOL Placement- Performed by Dr. Jomar Lucero COLONOSCOPY SCREENING 01/16/2019 [facility]. Negative. Repeat 10 years. EXCISION TUMOR SOFT TISSUE BACK/FLANK SUBQ <3CM 01/27/2007 left scapular FNA WITH IMAGING Left 01/10/2015 U/S FNA left breast 3 Oclock LAPS ABD PRTMANDOMENTUM DX W/WO SPEC BR/WA SPX 1981 Laparoscopy LASER IRIDOTOMY,IRIDECTOMY, ONE EYE Right 05/16/1992 LASER IRIDOTOMY,IRIDECTOMY, ONE EYE Left 03/24/2001 [facility] CORNEO-SCLL SCTJ Bilateral 99,2013 Insert lens prosthesis RPR 1ST INGUN HRNA AGE 6 YRS/> REDUCIBLE 1996 Hernia repair, inguinal FAMILY HISTORY Problem Relation Age of Onset Heart Mother Aortic disection (Marfan's syndrome) Lipids Mother other (Marfans) Mother Heart Father CAD and Heart failure Lipids Father Hypertension Father Heart Sister Cataract Sister Detached Retina Sister Cataract Sister Cataract Sister Blindness Sister other (Marfan's ) Sister Cataract Brother other (Aortic dissection) Brother Cataract Brother other (Aortic aneurysms) Brother Breast Cancer Paternal Grandmother BREAST Diabetes Paternal Grandmother SOCIAL HISTORY[1] Current Outpatient Medications Medication Sig spironolactone (ALDACTONE) 25 mg tablet Take 1 tablet by mouth once daily. omeprazole (PRILOSEC) 20 mg capsule Take 20 mg by mouth once daily. aspirin, enteric coated (ADULT LOW DOSE ASPIRIN) 81 mg EC tablet Take 1 tablet by mouth once daily. losartan (COZAAR) 100 mg tablet Take 1 tablet by mouth once daily. atenolol (TENORMIN) 25 mg tablet Take 1 tablet by mouth once daily. predniSONE (DELTASONE) 10 mg tablet Take 4 tablets for 4 days, then 3 tablets for 4 days, then two tablets for 4 days, then one table for 4 days then stop. Take with breakfast. triamcinolone acetonide (KENALOG) 0.1 % cream Apply 1 application to affected area three times a day for 14 days. Apply to affected area. No current facility-administered medications for this visit. Allergies As of Date: 12/03/2024 Allergen Noted Reaction BACLOFEN 11/30/2019 GI Upset CIPRO [CIPROFLOXACIN] 01/03/2007 Hives and Swelling GABAPENTIN 11/30/2019 Intolerance HCTZ [HYDROCHLOROTHIAZIDE] 11/19/2024 Rash MACROBID [NITROFURANTOIN MONOHYD/*01/03/2007 Hives and Swelling SULFA (SULFONAMIDE ANTIBIOTICS) 01/20/2005 Hives and Swelling TRAMADOL 12/13/2019 Other: See Comments TRIMETHOPRIM 06/27/2024 Unknown Fully Assessed 12/03/2024 REVIEW OF SYSTEMS Expanded ROS: N/A Allergies and current medication updated:Yes SENSITIVE EXAM: The sensitive examination was discussed with the Patient or Patient's Authorized Business Applications Analyst. As applicable, any other physician, advance practice provider, medical student, or other health professional student that wi (more content not included)... Normal [facility] ROSEMARIE BY IFA SCREENon 12-01-19 25 Nuclear Ab Ql (S) Negative Normal Negative [facility] Comment on above: Order Comment: Speci men Type: BLOOD SPECIMENOrdering Facility: [facility] Address: [address] [place] [address] Result Comment: Anti -nuclear antibody test is used as an aid in diagnosis of systemic autoimmune diseases. Where positive and clinically warranted, follow-up using disease-specific testing is recommended. Low positive titers are not uncommon with advanced age, certain chronic infections, and malignancies among others. Test methodology: Indirect fluorescence immunoassay (IFA) using HEp-2 cells. Performed By: #### A NAIFS ####[facility] LABCLIA [id number] [address] [address] [place] Basic metabolic 2000 panelon 11-30-2024 Anion gap [Moles/Vol] 12 mmol/L Normal 8-15 [facility] Comment on above: Order Comment: Speci men Type: BLOOD SPECIMENOrdering Facility: [facility] Address: [address] [place] [address] Performed By: #### 3 0522-7, 56020-5, 85940-9 ####[facility] LABCLIA [id number] [place] [id number] [place] Calcium [Mass/Vol] 9.8 mg/dL Normal 8.5-10.2 [facility] Comment on above: Order Comment: Speci men Type: BLOOD SPECIMENOrdering Facility: [facility] Address: [address] [place] [address] Performed By: #### 3 0522-7, 22774-6, 95848-9 ####[facility] LABCLIA [id number] [place] [id number] [place] Chloride [Moles/Vol] 103 mmol/L Normal 98-107 [facility] Comment on above: Order Comment: Speci men Type: BLOOD SPECIMENOrdering Facility: [facility] Address: [address] [place] [address] Performed By: #### 3 0522-7, 99315-1, 13331-6 ####[facility] LABCLIA [id number] [place] [id number] [place] CO2 [Moles/Vol] 24 mmol/L Normal 22-30 [facility] Comment on above: Order Comment: Speci men Type: BLOOD SPECIMENOrdering Facility: [facility] Address: [address] [place] [address] Performed By: #### 3 0522-7, 04569-8, 26604-7 ####[facility] LABCLIA [id number] [address] [address] [place] Creatinine [Mass/Vol] 0.66 mg/dL Normal 0.58-0.96 [facility] Comment on above: Order Comment: Pari macias Type: BLOOD SPECIMENOrdering Facility: [facility] Address: [address] [place] [address] Performed By: #### 3 0522-7, 51613-2, 42398-3 ####[facility] LABCLIA [id number] [place] [address] [place] eGFRcr SerPlBld CKD-EPI 2020 102 mL/min/1.73m??? Normal >=60 [facility] Comment on above: Order Comment: Pari macias Type: BLOOD SPECIMENOrdering Facility: [facility] Address: [address] [place] [address] Result Comment: Lynette mated Glomerular Filtration Rate (eGFR) is calculated using the 2020 CKD-EPI creatinine equation. This equation utilizes serum creatinine, sex, and age as parameters. The creatinine assay has traceable calibration to isotope dilution-mass spectrometry. Refer to KDIGO guidelines for clinical interpretation. In patients with unstable renal function, e.g. those with acute kidney injury, the eGFR may not accurately reflect actual GFR. Performed By: #### 3 0522-7, 70196-9, 80185-6 ####[facility] LABCLIA [id number] [place] [address] [place] Glucose [Mass/Vol] 91 mg/dL Normal 74-99 [facility] Comment on above: Order Comment: Pari macias Type: BLOOD SPECIMENOrdering Facility: [facility] Address: [address] [place] [address] Result Comment: The [place] Diabetes Association (ADA) provides guidance for cutoff values for fasting glucose and random glucose. The ADA defines fasting as no caloric intake for at least 8 hours. Fasting plasma glucose results between 100 to 125 mg/dL indicate increased risk for diabetes (prediabetes). Fasting plasma glucose results greater than or equal to 126 mg/dL meet the criteria for diagnosis of diabetes. In the absence of unequivocal hyperglycemia, results should be confirmed by repeat testing. In a patient with classic symptoms of hyperglycemia or hyperglycemic crisis, random plasma glucose results greater than or equal to 200 mg/dL meet the criteria for diagnosis of diabetes. Reference: Standards of Medical Care in Diabetes 2016, [place] Diabetes Association. Diabetes Care. 2016.39(Suppl 1). Performed By: #### 3 0522-7, 61960-5, 08895-5 ####[facility] LABCLIA [id number] [place] [id number] [place] Potassium [Moles/Vol] 4.5 mmol/L Normal 3.7-5.1 [facility] Comment on above: Order Comment: Speci men Type: BLOOD SPECIMENOrdering Facility: [facility] Address: [address] [place] [address] Performed By: #### 3 0522-7, 18445-2, 18823-3 ####[facility] LABCLIA [id number] [place] [address] [place] Sodium [Moles/Vol] 139 mmol/L Normal 136-144 [facility] Comment on above: Order Comment: Speci men Type: BLOOD SPECIMENOrdering Facility: [facility] Address: [address] [place] [address] Performed By: #### 3 0522-7, 63174-5, 22846-4 ####[facility] LABIA [id number] [place] [id number] [place] Urea nitrogen [Mass/Vol] 11 mg/dL Normal 7-21 [facility] Comment on above: Order Comment: Speci men Type: BLOOD SPECIMENOrdering Facility: [facility] Address: [address] [place] [address] Performed By: #### 3 0522-7, 65542-4, 89147-2 ####[facility] LABCLIA [id number] [address] [address] [place] CNOVon 11-30-2024 CNOV Office Visit (INTMWS ) ITZEL SORIANO ([id number]) 1965 F Date Time Provider Department 11/30/24 8:20 AM GEO SIMON INTMWS During your visit today, we recorded the following information about you: Pulse Respiration Blood pressure Weight 69/minute 16/minute 108/76 92.7 kg Geo Simon, JOHNATHAN.SHANKER OUT 11/30/2024 9:56 AM Signed Subjective Patient ID: Itzel is a 59 year old female who presents for Rash (Itchy rash for months. Stop hydrochloride 10 days ago. But still with itchy rash. Sore with the rash.). HPI The patient is a 59-year-old female presenting for evaluation of a persistent pruritic rash. Pruritic Rash: - Diffuse pruritic rash involving the axillae, hairline, ears, eyelids, neck, elbows, and wrists. - Rash has been present for several months, with varying severity and location. - Initially more severe around the anterior neck, causing burning pain and intense pruritus. - Currently described as horrible and itchy, with some areas bleeding due to scratching. - Denies known trauma or injury. - Rash has been evaluated by dermatology at [facility]; prescribed topical tacrolimus, which caused burning sensation and was discontinued. - Has not applied tacrolimus to axillae due to fear of adverse effects. - Scheduled for a video visit with [facility] dermatology on the . - Has tried Benadryl, which causes significant sedation. - Allergic to multiple soaps, suspects possible allergies to shampoo and laundry detergent. - Denies presence of insects in the home. - Family history of similar rash in . - Denies presence of rash under the breasts. - Denies presence of a butterfly rash on the face. Joint Pain: - Previous joint pain, now resolved since onset of pruritic rash. - Evaluated by rheumatology (Dr. Brooke) for joint pain; prescribed medication (name unknown) and ordered lab work, which was not completed. - Suspects joint pain may be related to pinched nerves (C5-C7) and has been advised to consider neck surgery. - Scheduled for follow-up with spine surgeon in 6 months. ROS Constitutional: (+) malaise Skin: (+) pruritus, (+) rash on armpits/hairline/ears/ eyelids/neck/arms/elbo ws/belly/wrists, (+) burning skin pain anterior neck, (+) skin bleeding, (-) rash under breasts Musculoskeletal: (-) joint pain Objective BP 108/76 Pulse 69 Resp 16 Wt 92.7 kg (204 lb 5.9 oz) LMP 07/11/2024 (Within Days) SpO2 99% BMI 31.78 kg/m? Physical Exam Vitals and nursing note reviewed. Constitutional: Appearance: Normal appearance. HENT: Head: Normocephalic and atraumatic. Eyes: Conjunctiva/sclera: Conjunctivae normal. Cardiovascular: Rate and Rhythm: Normal rate. Pulmonary: Effort: Pulmonary effort is normal. Musculoskeletal: Right lower leg: No edema. Left lower leg: No edema. Skin: General: Skin is warm and dry. Comments: Pruritic rash under both forearms arms, erythematous, raised, diffuse spread. Erythematous rash both axilla, flat. Erythematous raised rash with silver plaque posterior neck Neurological: General: No focal deficit present. Mental Status: She is alert and oriented to person, place, and time. 1. Pruritic rash (L28.2) 2. 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 Deferred antifungal treatment for axillae today. - Differential includes psoriatic arthritis given concurrent joint pain and cutaneous findings. - Start prednisone taper to reduce inflammation and pruritus. - Start topical Kenalog cream to affected areas (arms, neck). - Start topical antifungal cream to axillary regions. - Advised to avoid scratching to prevent skin breakdown and secondary infection. - Reviewed Rheumatology notes from Dr. Brooke regarding prior evaluation and recommended lab workup for inflammatory arthritis; did not complete labs. - Order rheumatologic labs to evaluate for autoimmune etiology, including lupus which Itzel Soriano is concerned about. - Refer to Rheumatology at [facility] for further evaluation and management. - Advised to follow up with Dermatology (video visit scheduled on the ) for further evaluation and management of rash. 1-3 mo follow up Lenny Dumas MD or Geo Simon APRN.SHANKER OUT Advised: - Start the oral prednisone taper as prescribed, taking the higher initial dose and tapering down over several days. - Apply Kenalog (triamcinolone) topical steroid cream to your neck, arms, and any other areas where you feel itching or see a rash. - Complete the blood tests today that we will screen for rheumatological disorder. -Make an appointment with rheumatology. - Your dermatology video visit is scheduled for the as planned. Let us know if your rash is not (more content not included)... Normal [facility] CRP SerPl HS-mCncon 12-01-19 25 CRP High sensitivity method [Mass/Vol] 7.3 mg/L High <3.1 [facility] Comment on above: Order Comment: Pari macias Type: BLOOD SPECIMENOrdering Facility: [facility] Address: [address] [place] [address] Result Comment: hsCR P < 1.0 mg/L, relative risk is low hsCRP 1.0-3.0 mg/L, relative risk is average hsCRP > 3.0 mg/L, relative risk is high Reference: Ruth TA, Andrzej GA, Augusto RW, et al. Markers of Inflammation and Cardiovascular Disease. Application to Clinical and Public Health Practice. A Statement for Healthcare Professionals from the Centers for Disease Control and Prevention and the [place] [employer] Association. Circulation 2003;107:499-511. Performed By: #### 3 0522-7, 42308-8, 50731-1 ####[facility] LABCLIA [id number] [place] [address] [place] Cyclic citrullinated peptide IgG Qnon 11-30-2024 CCP ANTIBODY IGG QUALITATIVE Negative Normal Negative [facility] Comment on above: Order Comment: Pari macias Type: BLOOD SPECIMENOrdering Facility: [facility] Address: [address] [place] [address] Performed By: #### 3 3935-8 ####[facility] LABCLIA [id number] [place] [address] [place] ESR Westergren method (Bld) [Velocity]on 11-30-2024 ESR (Bld) [Velocity] 25 mm/h High 0-20 [facility] Comment on above: Order Comment: Speci men Type: BLOOD SPECIMENOrdering Facility: [facility] Address: [address] [place] [address] Performed By: #### 4 537-7 ####[facility]TH[facility] [id number] [address] [place] Rheumatoid fact SerPl-aCncon 11-30-2024 Rheumatoid factor Qn [IU]/mL Normal <16 [facility] Comment on above: Order Comment: Speci men Type: BLOOD SPECIMENOrdering Facility: [facility] Address: [address] [place] [address] Performed By: #### 3 0522-7, 68214-9, 05709-1 ####[facility] [id number] [address] [place] cCP IgG SerPl-aCncon 025 Cyclic citrullinated peptide IgG Qn <15 Normal <20 [facility] Comment on above: Order Comment: Speci men Type: BLOOD SPECIMENOrdering Facility: [facility] Address: [address] [place] [address] Performed By: #### 3 3935-8 ####[facility] [id number] [place] [address] [place] BD DXA - AXIAL SKELETONon BD DXA - AXIAL SKELETON * * *Final Repor t* * * DATE OF EXAM: Nov 29 2024 11:20AM ANGÉLICA 0804 - BD DXA - AXIAL SKELETON / PROCEDURE REASON: Osteopenia, unspecified location * * * * Physician Interpretation * * * * EXAMINATION: DXA BONE DENSITOMETRY BD DXA - AXIAL SKELETON, BD DXA TRABECLR BONE SCORE (TBS) PATIENT DEMOGRAPHICS: Age: 59 years, Gender: Female SCANNER INFORMATION: DXA Model: [employer] - [email or web address] C [id number] Date Scanned: 11/29/2024 11:20 AM CLINICAL HISTORY: DIAGNOSTIC Osteopenia, unspecified location . RISK FACTORS FOR OSTEOPOROSIS AND ASSOCIATED FRACTURES REPORTED BY THIS PATIENT: Please refer to Bone Health Questionnaire in the EMR CURRENT THERAPY: Please refer to Bone Health Questionnaire in the EMR TECHNICAL LIMITATIONS: RESULTS: Lumbar spine (L1, L2, L3, L4): 0.988 g/cm2, T-score -0.5 , Z-score 0.7 Lumbar spine: 2022 : 1.039 g/cm2 Statistically significant decrease Left Femoral Neck: 0.691 g/cm2, T-score -1.4 , Z-score -0.2 Left Femoral Neck: 2022 : 0.727 g/cm2 No statistically significant change Left Total Hip: 1.029 g/cm2, T-score 0.7 , Z-score 1.6 Left Total Hip: 2022 : 1.022 g/cm2 No statistically significant change CHANGE IS STATISTICALLY SIGNIFICANT IN THE SPINE OR HIP IF GREATER THAN OR EQUAL TO 0.04 g/cm2 VERTEBRAL FRACTURE ASSESSMENT Not performed. TRABECULAR BONE ASSESSMENT TBS score: 1.249 Bone micro-architecture: Partially degraded (1.231 - 1.310) IMPRESSION: THE LOWEST T-SCORE IS -1.4 IN THE LEFT HIP 1) DIAGNOSIS (based on BMD alone): OSTEOPENIA Caution: Medical conditions other than osteoporosis may cause low bone density, such as osteomalacia or renal osteodystrophy. Clinical correlation is necessary. 2) FRACTURE RISK (Based on TBS adjusted FRAX): 10-year absolute fracture risk: - major osteoporotic fracture = 8.1 % - hip fracture = 0.6 % - A diagnosis of Osteoporosis, a 10 year probability of hip fracture greater than or equal to 3% or a 10 year probability of any major osteoporosis-related fracture greater than or equal to 20% should be considered for treatment. - DXA scanner generated FRAX calculations may slightly differ from online FRAX calculations due to differences in software versions. - All recommendations and calculations are to be considered as guidelines and should not replace sound clinical judgement - Caution: Fracture risk may be increased independent of BMD in patients with corticosteroid use, age greater than 65 years, or a history of prior fragility fracture. RECOMMENDATIONS: Follow-up in 2 years or as clinically indicated. Patients that are taking corticosteroids, are transplant recipients or have hyperparathyroidism should have annual follow-up. Follow-up scans should always be done on the same machine for accurate comparison. FOR MORE INFORMATION ABOUT DIAGNOSIS AND TREATMENT: [facility] Osteoporosis and Metabolic Bone Disease:? www.ccf.org/arthritis/ osteo National Osteoporosis Foundation:? www.nof.org International Society of Clinical Densitometry www.iscd.org Tray Checker: ARCELIA Transcribe Date/Time: Dec 03 2024 8:35A Dictated by : BRENNA ZAPATA MD This examination was interpreted and the report reviewed and electronically signed by: BRENNA ZAPATA MD on Dec 03 2024 8:37AM EST [id number] -[id number] Normal [facility] BD DXA TRABECLR BONE SCORE ( TBS)on 11-29-2024 BD DXA TRABECLR BONE SCORE (TBS) * * *Final Report* * * DATE OF EXAM: Nov 29 2024 11:20AM WRB 0801 - BD DXA TRABECLR BONE SCORE (TBS) / PROCEDURE REASON: Osteopenia, unspecified location * * * * Physician Interpretation * * * * EXAMINATION: DXA BONE DENSITOMETRY BD DXA - AXIAL SKELETON, BD DXA TRABECLR BONE SCORE (TBS) PATIENT DEMOGRAPHICS: Age: 59 years, Gender: Female SCANNER INFORMATION: DXA Model: [employer] - [employer] C [id number] Date Scanned: 11/29/2024 11:20 AM CLINICAL HISTORY: DIAGNOSTIC Osteopenia, unspecified location . RISK FACTORS FOR OSTEOPOROSIS AND ASSOCIATED FRACTURES REPORTED BY THIS PATIENT: Please refer to Bone Health Questionnaire in the EMR CURRENT THERAPY: Please refer to Bone Health Questionnaire in the EMR TECHNICAL LIMITATIONS: RESULTS: Lumbar spine (L1, L2, L3, L4): 0.988 g/cm2, T-score -0.5 , Z-score 0.7 Lumbar spine: 2022 : 1.039 g/cm2 Statistically significant decrease Left Femoral Neck: 0.691 g/cm2, T-score -1.4 , Z-score -0.2 Left Femoral Neck: 2022 : 0.727 g/cm2 No statistically significant change Left Total Hip: 1.029 g/cm2, T-score 0.7 , Z-score 1.6 Left Total Hip: 2022 : 1.022 g/cm2 No statistically significant change CHANGE IS STATISTICALLY SIGNIFICANT IN THE SPINE OR HIP IF GREATER THAN OR EQUAL TO 0.04 g/cm2 VERTEBRAL FRACTURE ASSESSMENT Not performed. TRABECULAR BONE ASSESSMENT TBS score: 1.249 Bone micro-architecture: Partially degraded (1.231 - 1.310) IMPRESSION: THE LOWEST T-SCORE IS -1.4 IN THE LEFT HIP 1) DIAGNOSIS (based on BMD alone): OSTEOPENIA Caution: Medical conditions other than osteoporosis may cause low bone density, such as osteomalacia or renal osteodystrophy. Clinical correlation is necessary. 2) FRACTURE RISK (Based on TBS adjusted FRAX): 10-year absolute fracture risk: - major osteoporotic fracture = 8.1 % - hip fracture = 0.6 % - A diagnosis of Osteoporosis, a 10 year probability of hip fracture greater than or equal to 3% or a 10 year probability of any major osteoporosis-related fracture greater than or equal to 20% should be considered for treatment. - DXA scanner generated FRAX calculations may slightly differ from online FRAX calculations due to differences in software versions. - All recommendations and calculations are to be considered as guidelines and should not replace sound clinical judgement - Caution: Fracture risk may be increased independent of BMD in patients with corticosteroid use, age greater than 65 years, or a history of prior fragility fracture. RECOMMENDATIONS: Follow-up in 2 years or as clinically indicated. Patients that are taking corticosteroids, are transplant recipients or have hyperparathyroidism should have annual follow-up. Follow-up scans should always be done on the same machine for accurate comparison. FOR MORE INFORMATION ABOUT DIAGNOSIS AND TREATMENT: [facility]abolic [facility] Disease:? www.ccf.org/arthritis/ osteo National Osteoporosis Foundation:? www.nof.org International Society of Clinical Densitometry www.iscd.org Tray Checker: ARCELIA Transcribe Date/Time: Dec 03 2024 8:35A Dictated by : BRENNA ZAPATA MD This examination was interpreted and the report reviewed and electronically signed by: BRENNA ZAPATA MD on Dec 03 2024 8:37AM EST [id number] Normal [facility]2024 [facility] ITZEL SORIANO ([id number]) 1965 F Date Time Provider Department 11/26/24 LENNY DUMAS During your visit today, we recorded the following information about you: Tristan Beasley RN 11/26/2024 10:02 AM Signed Patient calls to report she needs orders and OV notes faxed to [facility] for polysomnogram. Patient reports if notes are greater than 6 months old would need an addendum (not quite 6 mos old yet). Will fax and see if [facility] needs anything further. Faxed orders/OV notes to [facility] at [phone] with request to notify [facility] if anything further is needed. Tristan Beasley RN Allergies As of Date: 11/26/2024 Noted Allergy Reaction BACLOFEN 11/30/2019 8 - GI Upset CIPRO (CIPROFLOXACIN) 01/03/2007 4 - Hives 7 - Swelling GABAPENTIN 11/30/2019 5 - Intolerance HCTZ (HYDROCHLOROTHIAZIDE) 11/19/2024 2 - Rash MACROBID (NITROFURANTOIN MONOHYD/*01/03/2007 4 - Hives 7 - Swelling SULFA (SULFONAMIDE ANTIBIOTICS) 01/20/2005 4 - Hives 7 - Swelling TRAMADOL 12/13/2019 14 - Other: See Comments Comments: when taken with Baclofen TRIMETHOPRIM 06/27/2024 16 - Unknown Date Reviewed: 11/20/2024 Reviewed by: Beverly Salmon LPN - Fully Assessed Reason for Visit: Orders [681] Prescriptions as of 11/26/2024 - ALPRAZolam (XANAX) 0.25 mg tablet Take 1 tablet by mouth as needed for anxiety for up to 7 days. - spironolactone (ALDACTONE) 25 mg tablet Take 1 tablet by mouth once daily. - omeprazole (PRILOSEC) 20 mg capsule Take 20 mg by mouth once daily. - aspirin, enteric coated (ADULT LOW DOSE ASPIRIN) 81 mg EC tablet Take 1 tablet by mouth once daily. - losartan (COZAAR) 100 mg tablet Take 1 tablet by mouth once daily. - atenolol (TENORMIN) 25 mg tablet Take 1 tablet by mouth once daily. Problem List As Of Date 11/26/2024 Noted Resolved LIPOMA OTHER SKIN AND SUBCUTANEOUS(Left back) [D1*01/20/2005 10/31/2020 Marfan's syndrome [Q87.40] Abnormal mammogram [R92.8] 01/07/2015 10/31/2020 Aortic root dilation (HCC) [I77.810] Family history of Marfan syndrome [Z82.79] Cervical spondylosis without myelopathy [M47.81*07/09/2020 09/25/2020 Chronic mixed headache syndrome [G44.89] 10/31/2020 Obesity, Class I, BMI 30-34.9 [E66.811] 10/31/2020 Anxiety [F41.9] 10/31/2020 Cervical radiculopathy [M54.12] 04/03/2020 Depression with anxiety [F41.8] 04/08/2021 Adnexal mass [N94.89] 04/20/2021 Liver cyst [K76.89] 04/20/2021 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] 09/12/2022 Intramural and subserous leiomyoma of uterus [D*03/22/2024 Adenomyosis of the uterus [N80.03] 03/22/2024 Primary hypertension [I10] 07/15/2024 Hypercholesterolemia [E78.00] 07/15/2024 Encounter Status:Closed by TRISTAN [facility] ITZEL SORIANO ([id number]) 1965 F Date Time Provider Department 11/06/24 LENNY DUMAS INTMWS During your visit today, we recorded the following information about you: Tash Greene RN 11/06/2024 9:33 AM Signed Patient calls and is requesting General Surgery Consult to be faxed to [facility]. Consult faxed as requested by patient. Tash Greene RN Allergies As of Date: 11/06/2024 Noted Allergy Reaction BACLOFEN 11/30/2019 8 - GI Upset CIPRO (CIPROFLOXACIN) 01/03/2007 4 - Hives 7 - Swelling GABAPENTIN 11/30/2019 5 - Intolerance MACROBID (NITROFURANTOIN MONOHYD/*01/03/2007 4 - Hives 7 - Swelling SULFA (SULFONAMIDE ANTIBIOTICS) 01/20/2005 4 - Hives 7 - Swelling TRAMADOL 12/13/2019 14 - Other: See Comments Comments: when taken with Baclofen TRIMETHOPRIM 06/27/2024 16 - Unknown Date Reviewed: 11/06/2024 Reviewed by: Zeina Bella RPFT - Fully Assessed Reason for Visit: Appointment [186] Faxed General Surgery Consult [Other] Cmt: [facility]Calbret power Prescriptions as of 11/06/2024 - omeprazole (PRILOSEC) 20 mg capsule Take 20 mg by mouth once daily. - aspirin, enteric coated (ADULT LOW DOSE ASPIRIN) 81 mg EC tablet Take 1 tablet by mouth once daily. - hydroCHLOROthiazide 25 mg tablet Take 1 tablet by mouth once daily. - losartan (COZAAR) 100 mg tablet Take 1 tablet by mouth once daily. - atenolol (TENORMIN) 25 mg tablet Take 1 tablet by mouth once daily. Problem List As Of Date 11/06/2024 Noted Resolved LIPOMA OTHER SKIN AND SUBCUTANEOUS(Left back) [D1*01/20/2005 10/31/2020 Marfan's syndrome [Q87.40] Abnormal mammogram [R92.8] 01/07/2015 10/31/2020 Aortic root dilation (HCC) [I77.810] Family history of Marfan syndrome [Z82.79] Cervical spondylosis without myelopathy [M47.81*07/09/2020 09/25/2020 Chronic mixed headache syndrome [G44.89] 10/31/2020 Obesity, Class I, BMI 30-34.9 [E66.811] 10/31/2020 Anxiety [F41.9] 10/31/2020 Cervical radiculopathy [M54.12] 04/03/2020 Depression with anxiety [F41.8] 04/08/2021 Adnexal mass [N94.89] 04/20/2021 Liver cyst [K76.89] 04/20/2021 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] 09/12/2022 Intramural and subserous leiomyoma of uterus [D*03/22/2024 Adenomyosis of the uterus [N80.03] 03/22/2024 Primary hypertension [I10] 07/15/2024 Hypercholesterolemia [E78.00] 07/15/2024 Encounter Status:Closed by TASH GREENE on 11/06/24 Normal [facility] LUNG DIFFUSION CAPACITY (ANAHI O)on 11-06-2024 LUNG DIFFUSION CAPACITY (DLCO) [facility] [address] [address] Test Date: 2024-11-06 Pat Name: ITZEL SORIANO Department: Room: 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 No contraindications or sensitivities were noted. Meds taken: No inhaled respiratory medications taken before testing. 2 puffs Albuterol (180 mcg) delivered by MDI via holding chamber. HR pre = 61/min, HR post = 60/min. Current ATS/ERS acceptability and repeatability standards for spirometry met. Start of test and EOFE criteria met. Current ATS/ERS acceptability and repeatability standards for lung volumes met. Current ATS/ERS acceptability and repeatability standards for DLCO met with 2 acceptable maneuvers. IMPRESSION: Spirometry is normal. Negative bronchodilator response. Lung volumes are normal. The diffusion capacity (uncorrected for hemoglobin) is normal. Electronically Signed On 11-07-2024 16:13:20 EDT by Marilyn Cooper MD ID: [id number] Name: ITZEL SORIANO Race: White Ht: 67.24 in Wt: 206.00 lbs Age: 58 Gender: Female : 1965 Dx: Shortness of breath Smoking Hx: Non-smoker Doctor: BEN FRANKLIN Test Date: 11/06/2024 Site: Tech: Zeina Bella PRE-BRONCH POST-BRONCH Kath LLN Pred ULN %Pred ZScore Kath %Pred %Chg ZScore SPIROMETRY FVC 3.86 2.52 3.45 4.41 111 0.71 3.82 110 -1 0.63 FEV1 2.95 1.98 2.74 3.45 107 0.48 3.06 112 4 0.75 FEV1/FVC 0.76 0.68 0.79 0.89 96 -0.48 0.80 101 5 0.14 FEFMax 6.14 5.02 6.91 8.80 88 -0.67 6.37 92 3 -0.47 FEF50 4.02 2.05 3.65 5.26 109 0.37 4.47 122 11 0.83 FIF50 4.58 5.41 18 FEF50/FIF50 0.88 90-100 0.83 -5 FIVC 3.71 3.68 0 VOP17-64 2.53 1.32 2.53 4.14 100 0.00 3.03 119 19 0.56 ExpiredTime 9.50 8.38 -11 TimeToFEFMax 0.12 0.10 -14 AYAN 0.12 0.10 -12 VolExtrap% 3 3 -10 LUNG VOLUMES FRC(Pleth) 2.25 2.18 3.07 4.19 73 -1.50 ERV 0.57 1.15 49 RV(Pleth) 1.68 1.14 1.88 2.84 89 -0.39 SVC 3.85 2.52 3.45 4.41 111 0.68 IC 3.20 2.30 139 TLC(Pleth) 5.46 4.64 5.73 6.94 95 -0.40 RV/TLC(Pleth) 31 22 32 44 95 -0.21 LUNG DIFFUSION DLCOunc 19.56 16.62 21.59 27.61 90 -0.63 DLCOStdPB 19.27 16.62 21.59 27.61 89 -0.73 VA 5.12 4.26 5.25 6.34 97 -0.21 Kco 3.77 3.18 4.11 5.15 91 -0.58 Comments: Medications and Allergies were reviewed for possible drug interactions per policy. No contraindications or sensitivities were noted. Meds taken: No inhaled respiratory medications taken before testing. 2 puffs Albuterol (180 mcg) delivered by MDI via holding chamber. HR pre = 61/min, HR post = 60/min. Current ATS/ERS acceptability and repeatability standards for spirometry met. Start of test and EOFE criteria met. Current ATS/ERS acceptability and repeatability standards for lung volumes met. Current ATS/ERS acceptability and repeatability standards for DLCO met with 2 acceptable maneuvers. Normal [facility] LUNG VOLUMESon 11-06-2024 LUNG VOLUMES [facility] [place] [address] 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 No contraindications or sensitivities were noted. Meds taken: No inhaled respiratory medications taken before testing. 2 puffs Albuterol (180 mcg) delivered by MDI via holding chamber. HR pre = 61/min, HR post = 60/min. Current ATS/ERS acceptability and repeatability standards for spirometry met. Start of test and EOFE criteria met. Current ATS/ERS acceptability and repeatability standards for lung volumes met. Current ATS/ERS acceptability and repeatability standards for DLCO met with 2 acceptable maneuvers. IMPRESSION: Spirometry is normal. Negative bronchodilator response. Lung volumes are normal. The diffusion capacity (uncorrected for hemoglobin) is normal. Electronically Signed On 11-07-2024 16:13:20 EDT by Marilyn Cooper MD ID: [id number] Name: ITZEL SORIANO Race: White Ht: 67.24 in Wt: 206.00 lbs Age: 58 Gender: Female : 1965 Dx: Shortness of breath Smoking Hx: Non-smoker Doctor: BEN FRANKLIN Test Date: 11/06/2024 Site: [facility] Tech: Zeina Bella PRE-BRONCH POST-BRONCH Kath LLN Pred ULN %Pred ZScore Kath %Pred %Chg ZScore SPIROMETRY FVC 3.86 2.52 3.45 4.41 111 0.71 3.82 110 -1 0.63 FEV1 2.95 1.98 2.74 3.45 107 0.48 3.06 112 4 0.75 FEV1/FVC 0.76 0.68 0.79 0.89 96 -0.48 0.80 101 5 0.14 FEFMax 6.14 5.02 6.91 8.80 88 -0.67 6.37 92 3 -0.47 FEF50 4.02 2.05 3.65 5.26 109 0.37 4.47 122 11 0.83 FIF50 4.58 5.41 18 FEF50/FIF50 0.88 90-100 0.83 -5 FIVC 3.71 3.68 0 WIU05-34 2.53 1.32 2.53 4.14 100 0.00 3.03 119 19 0.56 ExpiredTime 9.50 8.38 -11 TimeToFEFMax 0.12 0.10 -14 AYAN 0.12 0.10 -12 VolExtrap% 3 3 -10 LUNG VOLUMES FRC(Pleth) 2.25 2.18 3.07 4.19 73 -1.50 ERV 0.57 1.15 49 RV(Pleth) 1.68 1.14 1.88 2.84 89 -0.39 SVC 3.85 2.52 3.45 4.41 111 0.68 IC 3.20 2.30 139 TLC(Pleth) 5.46 4.64 5.73 6.94 95 -0.40 RV/TLC(Pleth) 31 22 32 44 95 -0.21 LUNG DIFFUSION DLCOunc 19.56 16.62 21.59 27.61 90 -0.63 DLCOStdPB 19.27 16.62 21.59 27.61 89 -0.73 VA 5.12 4.26 5.25 6.34 97 -0.21 Kco 3.77 3.18 4.11 5.15 91 -0.58 Comments: Medications and Allergies were reviewed for possible drug interactions per policy. No contraindications or sensitivities were noted. Meds taken: No inhaled respiratory medications taken before testing. 2 puffs Albuterol (180 mcg) delivered by MDI via holding chamber. HR pre = 61/min, HR post = 60/min. Current ATS/ERS acceptability and repeatability standards for spirometry met. Start of test and EOFE criteria met. Current ATS/ERS acceptability and repeatability standards for lung volumes met. Current ATS/ERS acceptability and repeatability standards for DLCO met with 2 acceptable maneuvers. FVC_PRE (L) : 3.86 L FVC_POST (L) : 3.82 L FVC_PRED (L) : 3.45 L FVC_LLN (L) : 2.52 L FVC_ULN (L) : 4.41 L FEV1_PRE (L) : 2.95 L FEV1_POST (L) : 3.06 L FEV1_PRED (L) : 2.74 L FEV1_LLN (L) : 1.98 L FEV1_ULN (L) : 3.45 L FEV1/FVC_PRE (%) : 76 % FEV1/FVC_POST (%) : 80 % FEV1/FVC_PRED (%) : 79 % FEV1/FVC_LLN (%) : 68 % DVN66_EHX (L/S) : 5.47 L/S BKP14_IIPT (L/S) : 5.60 L/S OIF50_VBX (L/S) : 0.73 L/S LNK42_ZHZK (L/S) : 0.97 L/S MOU12_INYT (L/S) : 0.77 L/S VGL34_OOG (L/S) : 0.31 L/S EXY27_IES (L/S) : 1.75 L/S VTV15-11%_PRE (L/S) : 2.53 L/S DOS66-57%_POST (L/S) : 3.03 L/S IUV17-04%_PRED (L/S) : 2.53 L/S EHP32-26%_LLN (L/S) : 1.32 L/S PEF_PRE (L/S) : 6.14 L/S PEF_POST (L/S) : 6.37 L/S PEFMAX_LLN (L/S) : 5.02 L/S PEFMAX_ULN (L/S) : 8.80 L/S VC BOX (L) : 3.85 L SVC_PRED (L) : 3.45 L/S SVC_LLN (L) : 2.52 L/S SVC_ULN (L/S) : 4.41 L/S IC BOX (L) : 3.20 L IC_PRED (L) : 2.30 L/S ERV BOX (L) : 0.57 L ERV_PREDICTED (L) : 1.15 L/S DLCO (ML/MIN/MMHG) : 19.56 ml/min/mmHg DLCO_PRED (ML/MIN/MMHG) : 21.59 ml/min/mmHg DLCO_LLN(ML/MIN/MMHG) : 16.62 ml/min/mmHg DLCO_ULN (ML/MIN/MMHG) : 27.61 ml/min/mmHg FET_PRE (S) : 9.50 S FET_POST (S) : 8.38 S FRC BOX (L) : 2.25 L RV BOX (L) : 1.68 L RV_PLETH_PRED (L) : 1.88 L TLC BOX (L) : 5.46 L TLC_PLETH_PRED (L) : 5.73 L RV/TLC BOX (%) : 31 % RV_TLC_PLETH_PRED (%) : 32 % VA (L) : 5.12 L VA_PRD (L) : 5.25 L DLCO/VA (ML/MIN/MMHG/L) : 0.04 ml/min/mmHg/L DLCO_VA_PRED (L) : 0.04 ml/min/mmHg/L DLCOCOR (ML/MIN/MMHG) : 19.27 ml/min/mmHg DLCOCOR_PRED (ML/MIN/MMHG) : 21.59 ml/min/mmHg DLCO/VACOR (ML/MIN/MMHG/L) : 0.04 ml/min/mmHg/L Normal [facility] NITRIC OXIDE, EXHALEDon 09-0 Zeina Bella RPF T 11/06/2024 8:13 AM RESPIRATORY THERAPY ORAL EXHALED NITRIC OXIDE SERVICE DATE: 11/06/2024 SERVICE TIME: 8:13 AM Oral Exhaled Nitric Oxide measurement: 20.0 (ppb) Normal: Adult <25 ppb, pediatric (<12 years) <20 ppb High Normal / Increased: Adult 25-50 ppb, pediatric (<12 years) 20-35 ppb Moderately raised exhaled Nitric Oxide may indicate underlying inflammation, but note that: Cold and influenza can raise exhaled Nitric Oxide and some patients have higher baseline exhaled Nitric Oxide levels than others. High: Adult >50 ppb, pediatric (<12 years) >35 ppb Indicative of ongoing eosinophilic inflammation. Symptomatic patient likely to respond to steroids. Possible causes (if already on steroids): Poor compliance, recent allergen exposure, steroid dose inadequate, and steroid resistance. Note that not all patients with high exhaled nitric oxide levels display symptoms. 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 No contraindications or sensitivities were noted. Meds taken: No inhaled respiratory medications taken before testing. 2 puffs Albuterol (180 mcg) delivered by MDI via holding chamber. HR pre = 61/min, HR post = 60/min. Current ATS/ERS acceptability and repeatability standards for spirometry met. Start of test and EOFE criteria met. Current ATS/ERS acceptability and repeatability standards for lung volumes met. Current ATS/ERS acceptability and repeatability standards for DLCO met with 2 acceptable maneuvers. IMPRESSION: Spirometry is normal. Negative bronchodilator response. Lung volumes are normal. The diffusion capacity (uncorrected for hemoglobin) is normal. Electronically Signed On 11-07-2024 16:13:20 EDT by Marilyn Cooper MD ID: [id number] Name: ITZEL SORIANO Race: White Ht: 67.24 in Wt: 206.00 lbs Age: 58 Gender: Female : 1965 Dx: Shortness of breath Smoking Hx: Non-smoker Doctor: BEN FRANKLIN Test Date: 11/06/2024 Site: Tech: Zeina Bella PRE-BRONCH POST-BRONCH Kath LLN Pred ULN %Pred ZScore Kath %Pred %Chg ZScore SPIROMETRY FVC 3.86 2.52 3.45 4.41 111 0.71 3.82 110 -1 0.63 FEV1 2.95 1.98 2.74 3.45 107 0.48 3.06 112 4 0.75 FEV1/FVC 0.76 0.68 0.79 0.89 96 -0.48 0.80 101 5 0.14 FEFMax 6.14 5.02 6.91 8.80 88 -0.67 6.37 92 3 -0.47 FEF50 4.02 2.05 3.65 5.26 109 0.37 4.47 122 11 0.83 FIF50 4.58 5.41 18 FEF50/FIF50 0.88 90-100 0.83 -5 FIVC 3.71 3.68 0 POA62-28 2.53 1.32 2.53 4.14 100 0.00 3.03 119 19 0.56 ExpiredTime 9.50 8.38 -11 TimeToFEFMax 0.12 0.10 -14 AYAN 0.12 0.10 -12 VolExtrap% 3 3 -10 LUNG VOLUMES FRC(Pleth) 2.25 2.18 3.07 4.19 73 -1.50 ERV 0.57 1.15 49 RV(Pleth) 1.68 1.14 1.88 2.84 89 -0.39 SVC 3.85 2.52 3.45 4.41 111 0.68 IC 3.20 2.30 139 TLC(Pleth) 5.46 4.64 5.73 6.94 95 -0.40 RV/TLC(Pleth) 31 22 32 44 95 -0.21 LUNG DIFFUSION DLCOunc 19.56 16.62 21.59 27.61 90 -0.63 DLCOStdPB 19.27 16.62 21.59 27.61 89 -0.73 VA 5.12 4.26 5.25 6.34 97 -0.21 Kco 3.77 3.18 4.11 5.15 91 -0.58 Comments: Medications and Allergies were reviewed for possible drug interactions per policy. No contraindications or sensitivities were noted. Meds taken: No inhaled respiratory medications taken before testing. 2 puffs Albuterol (180 mcg) delivered by MDI via holding chamber. HR pre = 61/min, HR post = 60/min. Current ATS/ERS acceptability and repeatability standards for spirometry met. Start of test and EOFE criteria met. Current ATS/ERS acceptability and repeatability standards for lung volumes met. Current ATS/ERS acceptability and repeatability standards for DLCO met with 2 acceptable maneuvers. Normal [facility] CNOVon 11-01-2024 CNOV Office Visit (PULMWS ) ITZEL SORIANO ([id number]) 1965 F Date Time Provider Department 11/01/24 8:30 AM BEN FRANKLIN During your visit today, we recorded the following information about you: Pulse Respiration Blood pressure Weight 62/minute 14/minute 110/72 94.8 kg Height 1.727 m Ben Franklin APRN.CNP 11/01/2024 3:22 PM Signed LUNG SCREENING VISIT PRIMARY CARE PHYSICIAN: Lenny Dumas MD PULMONARY PROVIDER: none Results will be communicated via letter or electronic record if applicable. Visit Delivery: In Person Patient Visit Type: New to Screening Current or Ex-smoker? Ex Exam Type: baseline LDCT Number of Pack Years: 33 Current smoker (=0) or Number of Years since Quit: 11 REQUESTER: The referring provider advised the patient to have screening. HISTORY OF PRESENT ILLNESS: Itzel Soriano is a 58 year old Former smoker who presents for lung screening. Follows with cardiology for Marfan's syndrome. Has CTA every 2 years. Chest pain ongoing issue, not worse. Has noticed increased shortness of breath. 2013 PFT were normal. Respiratory symptoms include: SOB: Yes, at times feels it is getting worse vacuuming last week, with a flight of stairs, started walking Chest tightness: No Coughing: Yes: Without mucus Hemoptysis: No Wheezing: Yes, morning and at night sounds more like crackling Fever/Chills: No Recent Respiratory Infection: No Unintentional weight loss: No Last 6 Encounter Wt Readings: Date: Wt: 11/01/2024 94.8 kg (209 lb) 09/26/2024 93.8 kg (206 lb 12.7 oz) 07/20/2024 95.7 kg (210 lb 15.7 oz) 07/11/2024 93.4 kg (206 lb) 05/29/2024 95.3 kg (210 lb 1.6 oz) 05/11/2024 94.8 kg (209 lb) ECOG PERFORMANCE STATUS: 0- Fully active, able to carry on all pre-disease performance w/o restriction. Modified Medical Research [place] Dyspnea Scale (MMRC) On level ground I walk slower than people of the same age because of breathlessness, or have to stop for breath when walking at my own pace 2 PAST MEDICAL HISTORY Diagnosis Date Aortic root dilation Cervical radiculopathy 04/03/2020 Cervical spondylosis without myelopathy 04/03/2020 Chronic mixed headache syndrome 10/31/2020 Coitus painful for female Endometriosis Family history of Marfan syndrome H/O alopecia areata Infertility, female LIPOMA OTHER SKIN AND SUBCUTANEOUS(Left back) 01/20/2005 Major depressive disorder, single episode, mild 2007 Marfan's syndrome (HCC) Lens dislocation and aortic root dilation Ovarian cyst Uterine fibroid PAST SURGICAL HISTORY Procedure Laterality Date CATARACT SURGERY, COMPLEX Right 05/15/1992 CLEAR LENSECTOMY Left 03/24/2001 Left Lensectomy and anterior Chamber IOL Placement- Performed by Dr. Roberto Lucero CLEAR LENSECTOMY Right 09/19/2013 Lensectomy with Anterior Chamber IOL Placement- Performed by Dr. Jomar Lucero COLONOSCOPY SCREENING 01/16/2019 [facility]. Negative. Repeat 10 years. EXCISION TUMOR SOFT TISSUE BACK/FLANK SUBQ <3CM 01/27/2007 left scapular FNA WITH IMAGING Left 01/10/2015 U/S FNA left breast 3 Oclock LAPS ABD PRTMANDOMENTUM DX W/WO SPEC BR/WA SPX 1981 Laparoscopy LASER IRIDOTOMY,IRIDECTOMY, ONE EYE Right 05/16/1992 LASER IRIDOTOMY,IRIDECTOMY, ONE EYE Left 03/24/2001 RM[facility] SEC MEMBRANOUS CTRC CORNEO-SCLL SCTJ Bilateral Insert lens prosthesis RPR 1ST INGUN HRNA AGE 5 YRS/> REDUCIBLE 1996 Hernia repair, inguinal FAMILY HISTORY Problem Relation Age of Onset Heart Mother Aortic disection (Marfan's syndrome) Lipids Mother other (Marfans) Mother Heart Father CAD and Heart failure Lipids Father Hypertension Father Heart Sister Cataract Sister Detached Retina Sister Cataract Sister Cataract Sister Blindness Sister other (Marfan's ) Sister Cataract Brother other (Aortic dissection) Brother Cataract Brother other (Aortic aneurysms) Brother Breast Cancer Paternal Grandmother BREAST Diabetes Paternal Grandmother omeprazole (PRILOSEC) 20 mg capsule Take 20 mg by mouth once daily. aspirin, enteric coated (ADULT LOW DOSE ASPIRIN) 81 mg EC tablet Take 1 tablet by mouth once daily. hydroCHLOROthiazide 25 mg tablet Take 1 tablet by mouth once daily. losartan (COZAAR) 100 mg tablet Take 1 tablet by mouth once daily. atenolol (TENORMIN) 25 mg tablet Take 1 tablet by mouth once daily. mupirocin (BACTROBAN) 2 % ointment Apply to affected area three times a day. Treat for 10 days or as directed. Apply intranasal (Patient not taking: Reported on 11/01/2024) tacrolimus (PROTOPIC) 0.03 % ointment Apply to affected area once daily. (Patient not taking: Reported on 11/01/2024) ALLERGIES Allergen Reactions Baclofen GI Upset Cipro [Ciprofloxaci* Hives, Swelling Gabapentin Intolerance Macrobid [Nitrofura* Hives, Swelling Sulfa (Sulfonamide * Hives, Swelling Tramadol Other: See Comments (more content not included)... Normal [facility] CNOVon 10-17-2024 CNOV Office Visit (SPNSST ) ITZEL SORIANO ([id number]) 1965 F Date Time Provider Department 10/17/24 8:45 AM SUZIE SUAREZ During your visit today, we recorded the following information about you: Suzie Suarez PA-C 10/17/2024 11:59 AM Signed SPINE SURGERY NEW PATIENT This is an in-person visit. PCP: Lenny Dumas MD REFERRING PROVIDER: SELF SUBJECTIVE HISTORY OF PRESENT ILLNESS: Itzel Soriano is a 58 year old female presenting with friend. HPI: Former patient of Dr. Sampson, last seen in 2020, history of Marfan syndrome, cervical stenosis Presenting for evaluation of chronic neck/trap pain and right arm paresthesias. Itzel reports chronic neck pain and right arm paresthesia, which have been present since her last visit in [address] Sampson. She describes the symptoms as waxing and waning, with an underlying constant presence pf symptoms. The neck pain is localized to the right side, extending from the jawline down to the shoulder blade and trapezius area. She notes a sensation of tightness, describing her R trap feeling like a concrete block and reporting audible cracking sounds when moving her neck. The paresthesia in the right arm is described as a tingly pins and needles sensation along the inner arm, sometimes shooting into all fingers. She does not endorse numbness but reports episodes of hand cramping and freezing up during activities such as brushing her teeth or holding a skillet. These symptoms are exacerbated by certain neck movements. She does not report symptoms on the left side. She does feel her symptoms have recently improved, now that she has been more consistent with her exercises. Itzel has not experienced falls but notes some subtle changes to her balance, which she attributes to inactivity. She reports that the numbness in her fingers can make it difficult to perform fine motor tasks such as buttoning and zipping, particularly when the pain is more intense, but has not noticed significant concerns with her hand dexterity. She has been managing her symptoms with home exercises, including those from physical therapy and the Sarah neck book, which she finds helpful. She has not undergone epidural steroid injections for the cervical spine and wishes to avoid surgery if possible. She has tried gabapentin in the past but discontinued due to side effects, including nausea. She occasionally takes a low-dose Xanax prescribed by her primary care physician for panic attacks, which she finds helpful during severe pain episodes and muscle spasms. She was offered ACDF C3-6 by outside surgeon (Dr. Ross) who she has been following with at [facility]. She did want a second opinion from Dr. Sampson. PRECIPITATING EVENT: None DURATION OF SYMPTOMS: years PAIN EVALUATION 10/12/2024 1324 10/17/2024 0828 Pain Level: 3 2 Pain Location: -- Neck Description: -- Stiffness;Sore Duration Units: -- Years Frequency: -- Continuous DERMATOMAL DISTRIBUTION: Right: C5 and C6 AMBULATORY STATUS: Independent Community Distances ANTIPLATELET OR ANTICOAGULATION STATUS: No PREVIOUS CONSERVATIVE TREATMENTS: PT Cervical home exercises Tylenol Gabapentin (did not tolerate due to side effects) PREVIOUS SPINAL SURGERY: None ACTIVE PROBLEM LIST Marfan's Syndrome (Hcc) Aortic Root Dilation Family History of Marfan Syndrome Chronic Mixed Headache Syndrome Obesity, Class I, Bmi 30-34.9 Anxiety Cervical Radiculopathy Depression With Anxiety Adnexal Mass Liver Cyst Moderate Major Depression (Hcc) Intramural and Subserous Leiomyoma of Uterus Adenomyosis of The Uterus Primary Hypertension Hypercholesterolemia PAST MEDICAL HISTORY Diagnosis Date Aortic root dilation Cervical radiculopathy 04/03/2020 Cervical spondylosis without myelopathy 04/03/2020 Chronic mixed headache syndrome 10/31/2020 Coitus painful for female Endometriosis Family history of Marfan syndrome H/O alopecia areata Infertility, female LIPOMA OTHER SKIN AND SUBCUTANEOUS(Left back) 01/20/2005 Major depressive disorder, single episode, mild 2006 Marfan's syndrome (HCC) Lens dislocation and aortic root dilation Ovarian cyst Uterine fibroid PAST SURGICAL HISTORY Procedure Laterality Date CATARACT SURGERY, COMPLEX Right 05/15/1992 CLEAR LENSECTOMY Left 03/24/2001 Left Lensectomy and anterior Chamber IOL Placement- Performed by Dr. Roberto Lucero CLEAR LENSECTOMY Right 09/19/2013 Lensectomy with Anterior Chamber IOL Placement- Performed by Dr. Jomar Lucero COLONOSCOPY SCREENING 01/16/2019 [facility]. Negative. Repeat 10 years. EXCISION TUMOR SOFT TISSUE BACK/FLANK SUBQ <3CM 01/27/2007 left scapular FNA WITH IMAGING Left 01/10/2015 U/S FNA left breast 3 Oclock LAPS ABD PRTMANDOMENTUM DX W/WO SPEC BR/WA SPX 1981 Laparoscopy LASER IRIDOTOM (more content not included)... Normal [facility] XR CERV OTHER 4V AP/LAT/FLX/ EXTon 10-17-2024 IMPRESSION: Cervical spine degenerative changes, greater and moderately involving C5-C6 and C6-C7. Straightening of the cervical spine which may relate to muscle spasm or patient positioning. Tray Checker: [facility] Transcribe Date/Time: Oct 17 2024 10:35A Dictated by : SURYA VALERO MD This examination was interpreted and the report reviewed and electronically signed by: SURYA VALERO MD on Oct 17 2024 10:36AM [facility] DIVISION OF RADIOLOGY * * *Final Report* * * DATE OF EXAM: Oct 17 2024 9:50AM STX 5310 - XR CERVICAL 4V AP/LAT/FLX/EXT / PROCEDURE REASON: multiple diagnoses * * * * Physician Interpretation * * * * HISTORY: Spinal stenosis in cervical region Radiculopathy, cervical region . NECK PAIN TECHNIQUE: XR CERVICAL 4V AP/LAT/FLX/EXT Laterality: NOT APPLICABLE Number of different views (projections): 4 COMPARISON: 08/15/2023 RESULT: Counting reference: Craniocervical junction. Vertebral body heights are maintained without compression deformity. Straightening of the cervical spine. No abnormal motion is detected on flexion or extension views. Moderate disc space narrowing at C5-C6 and C6-C7. Mild disc space narrowing at C2-C3, C3-C4, C4-C5. Multilevel endplate osteophytes, greater involving C5-C6 and C6-C7. Scattered facet degeneration. Prevertebral soft tissues are within normal limits. DIVISION OF RADIOLOGY Provider, [facility] - 10/17/2024 * * *Final Report* * * DATE OF EXAM: Oct 17 2024 9:50AM STX 5310 - XR CERVICAL 4V AP/LAT/FLX/EXT / PROCEDURE REASON: multiple diagnoses * * * * Physician Interpretation * * * * HISTORY: Spinal stenosis in cervical region Radiculopathy, cervical region . NECK PAIN TECHNIQUE: XR CERVICAL 4V AP/LAT/FLX/EXT Laterality: NOT APPLICABLE Number of different views (projections): 4 COMPARISON: 08/15/2023 RESULT: Counting reference: Craniocervical junction. Vertebral body heights are maintained without compression deformity. Straightening of the cervical spine. No abnormal motion is detected on flexion or extension views. Moderate disc space narrowing at C5-C6 and C6-C7. Mild disc space narrowing at C2-C3, C3-C4, C4-C5. Multilevel endplate osteophytes, greater involving C5-C6 and C6-C7. Scattered facet degeneration. Prevertebral soft tissues are within normal limits. IMPRESSION IMPRESSION: Cervical spine degenerative changes, greater and moderately involving C5-C6 and C6-C7. Straightening of the cervical spine which may relate to muscle spasm or patient positioning. Tray Checker: [facility] Transcribe Date/Time: Oct 17 2024 10:35A Dictated by : SURYA VALERO MD This examination was interpreted and the report reviewed and electronically signed by: SURYA VALERO MD on Oct 17 2024 10:36AM EST [facility] Radiology Study observation (narrative) [facility] XR CERV OTHER 4V AP/LAT/FLX/ EXTOrdered By: [facility] Provider on 10-17-2024 [facility] XR CERVICAL 4V AP/LAT/FLX/EX Ton 10-17-2024 XR CERVICAL 4V AP/LAT/FLX/EXT * * *Final Report* * * DATE OF EXAM: Oct 17 2024 9:50AM STX 5310 - XR CERVICAL 4V AP/LAT/FLX/EXT / PROCEDURE REASON: multiple diagnoses * * * * Physician Interpretation * * * * HISTORY: Spinal stenosis in cervical region Radiculopathy, cervical region . NECK PAIN TECHNIQUE: XR CERVICAL 4V AP/LAT/FLX/EXT Laterality: NOT APPLICABLE Number of different views (projections): 4 COMPARISON: 08/15/2023 RESULT: Counting reference: Craniocervical junction. Vertebral body heights are maintained without compression deformity. Straightening of the cervical spine. No abnormal motion is detected on flexion or extension views. Moderate disc space narrowing at C5-C6 and C6-C7. Mild disc space narrowing at C2-C3, C3-C4, C4-C5. Multilevel endplate osteophytes, greater involving C5-C6 and C6-C7. Scattered facet degeneration. Prevertebral soft tissues are within normal limits. IMPRESSION: Cervical spine degenerative changes, greater and moderately involving C5-C6 and C6-C7. Straightening of the cervical spine which may relate to muscle spasm or patient positioning. Tray Checker: [facility] Transcribe Date/Time: Oct 17 2024 10:35A Dictated by : SURYA VALERO MD This examination was interpreted and the report reviewed and electronically signed by: SURYA VALERO MD on Oct 17 2024 10:36AM EST [id number] Normal [facility] CNOVon 09-26-2024 CNOV Office Visit (INTMWS ) ITZEL SORIANO ([id number]) 1965 F Date Time Provider Department 09/26/24 9:40 AM LENNY DUMAS INTMWS During your visit today, we recorded the following information about you: Pulse Blood pressure Weight 63/minute 116/77 93.8 kg Lenny Dumas MD 09/26/2024 5:37 PM Signed Subjective Itzel Soriano is a 58 year old female. HPI Itzel Soriano is a 58-year-old female presenting for follow-up on recent tests and ongoing dermatological issues. Itzel recently underwent a calcium score test at [facility], which showed no coronary artery calcification. She also had a body composition test, which revealed a BMI of 31.6 and a total body fat percentage of 38.9%. Itzel is aware that these results indicate a need for improvements in diet and exercise. She also visited a filler sifter machine at [facility] for a full-body scan and treatment of a persistent skin condition. Itzel reports that the scan was very brief, lasting less than a minute, and that the prescribed treatments, including tacrolimus, triamcinolone, and clobetasol, exacerbated her symptoms. She has been unable to identify the specific cause of her skin reactions, despite eliminating potential irritants such as soaps, shampoos, and body washes. She suspects that her condition may be related to her diet, particularly her consumption of smoothies containing spinach and strawberries. She has since discontinued these smoothies and reports some improvement in her symptoms. She also notes that her skin reacts negatively to sunscreen, and she prefers to wear long sleeves and a hat for sun protection. Itzel has been using Arnica gel to soothe her skin and has been taking Xanax 0.25 mg as needed for severe itching, which she reports has been effective in managing her symptoms. She has one pill remaining from her original prescription of five pills, which was given in June. PAST MEDICAL HISTORY Diagnosis Date Aortic root dilation Cervical radiculopathy 04/03/2020 Cervical spondylosis without myelopathy 04/03/2020 Chronic mixed headache syndrome 10/31/2020 Coitus painful for female Endometriosis Family history of Marfan syndrome H/O alopecia areata Infertility, female LIPOMA OTHER SKIN AND SUBCUTANEOUS(Left back) 01/20/2005 Major depressive disorder, single episode, mild 2006 Marfan's syndrome (HCC) Lens dislocation and aortic root dilation Ovarian cyst Uterine fibroid Current Outpatient Medications Medication Sig omeprazole (PRILOSEC) 20 mg capsule Take 20 mg by mouth once daily. mupirocin (BACTROBAN) 2 % ointment Apply to affected area three times a day. Treat for 10 days or as directed. Apply intranasal aspirin, enteric coated (ADULT LOW DOSE ASPIRIN) 81 mg EC tablet Take 1 tablet by mouth once daily. hydroCHLOROthiazide 25 mg tablet Take 1 tablet by mouth once daily. losartan (COZAAR) 100 mg tablet Take 1 tablet by mouth once daily. atenolol (TENORMIN) 25 mg tablet Take 1 tablet by mouth once daily. ALPRAZolam (XANAX) 0.25 mg tablet Take 1 tablet by mouth as needed for anxiety for up to 7 days. tacrolimus (PROTOPIC) 0.03 % ointment Apply to affected area once daily. (Patient not taking: Reported on 08/09/2024) No current facility-administered medications for this visit. Review of Systems Objective BP 116/77 (BP Site: Left Arm, BP Position: Sitting, BP Cuff Size: Regular Adult) Pulse 63 Wt 93.8 kg (206 lb 12.7 oz) LMP 07/11/2024 (Within Days) SpO2 97% BMI 31.44 kg/m? Physical Exam Constitutional: Appearance: Normal appearance. She is obese. Eyes: General: No scleral icterus. Pulmonary: Effort: Pulmonary effort is normal. Skin: Findings: Rash (Resolving around neck; skin not as irritated and dark) present. Neurological: Mental Status: She is alert. Psychiatric: Attention and Perception: Attention and perception normal. Mood and Affect: Affect normal. Mood is anxious. Speech: Speech normal. Behavior: Behavior normal. Thought Content: Thought content normal. Allergies As of Date: 09/26/2024 Noted Allergy Reaction BACLOFEN 11/30/2019 8 - GI Upset CIPRO (CIPROFLOXACIN) 01/03/2007 4 - Hives 7 - Swelling GABAPENTIN 11/30/2019 5 - Intolerance MACROBID (NITROFURANTOIN MONOHYD/*01/03/2007 4 - Hives 7 - Swelling SULFA (SULFONAMIDE ANTIBIOTICS) 01/20/2005 4 - Hives 7 - Swelling TRAMADOL 12/13/2019 14 - Other: See Comments Comments: when taken with Baclofen TRIMETHOPRIM 06/27/2024 16 - Unknown Date Reviewed: 09/26/2024 Reviewed by: Gracie Muhammad MA - Fully Assessed Reason for Visit: Results [95] Cmt: Labs 09/11 Primary Visit Diagnosis:Anxiety [F41.9] Other Visit Diagnoses:Obesity, Class I, BMI 30-34.9 [E66.811] Dermatitis [L30.9] Cervical disc disease [M50.90] Cervical disc herniation [M50.20] Comment:C4-C5, right Order(s):AL (more content not included)... Normal [facility] Coronary Angiography CTon Coronary Angiography CT [facility] Services [address] [place] [address] 09/19/24 1726 MR#: [id number] Acct: [id number] Name: ITZEL SORIANO Rep #: [id number] : 1965 58 From: Karri Bingham MD PCP: Dr. Lenny Dumas MD Status:REG CLI Y Location: CT Calcium Scoring Date of Study:: 09/19/24 Indications Indications: HLD Coronary Calcium Scoring: High-resolution Computed Tomographic imaging of the chest was performed on [09/19/2024], with particular attention paid to the coronary arteries. Images from the examination were analyzed for the presence and extent of coronary artery calcification , using coronary calcium quantification software. The patient tolerated the procedure well and there were no complications. The results of the coronary calcification analysis are provided below. Findings Coronary Artery Left Main (LM): 0 Left Anterior Descending (LAD): 0 Left Circumflex (LCX): 0 Right Coronary Artery (RCA): 0 Total Agatston Score: 0 Percentile Rankinth percentile Calcium Scoring Interpretation: Different methods to categorize the overall amount of coronary plaque. Overall amount CAC SIS Visual of coronary plaque P1 Mild -100 <2 1-2 vessels with mild amount of plaque P2 Moderate 101-300 3-4 1-2 vessels with moderate amount, 3 vessels with mild amount of plaque P3 Severe 301-999 5-7 3 vessels with moderate amount, 1 vessel with severe amount of plaque P4 Extensive >1000 >8 2-3 vessels with severe amount of plaque Conclusion: No atherosclerotic plaquing noted 09/19/241726 Date Karri Bingham MD Cosigner Signature (if applicable): Date CC: CLERK RATING-C Nohemy Davis; Dr. Karri Bingham MD; Dr. Lenny Dumas MD Signed Normal [facility] Limited Chest CT Cardiac Onl yon 09-19-[address] Cardiac Only [facility] Imaging Services [address] [place] [id number] Cardiac Only MR#: [id number] Acct: [id number] Name: ITZEL SORIANO Rep #: [id number] : 1965 F 58 From: Florentino grady MD PCP: Dr. Lenny Dumas MD Status: [facility] Study: Limited Chest CT Cardiac Only Date of Exam: Exam# [id number] Ordering Dr: Nohemy Davis CLERK RATING CLERK RATING-C PROCEDURE: LIMITED CHEST CT CARDIAC ONLY 09/19/2024 REASON FOR EXAM: HYPERCHOLESTEROLEMIA TECHNIQUE: LIMITED CHEST CT CARDIAC ONLY Coronal and Sagittal reconstruction series were provided. CONTRAST: None One or more dose reduction techniques were used (e.g., Automated exposure control, adjustment of the mA and/or kV according to patient size, use of iterative reconstruction technique). RADIATION DOSE SUMMARY: CTDlvol: 12.19 mGy DLP: 195.04 mGycm COMPARISON: None FINDINGS: Mild calcification of the aortic arch. No coronary artery calcification is seen. The heart is not enlarged. The lungs are clear. CT/Limited Chest CT Cardiac Only IMPRESSION: No coronary artery calcification is seen. Reading Location: [id number] CC: SHAYLA Davis; Dr. Lenny Dumas MD Tray Checker: Signed Normal [facility] CBC W Auto Differential pane l (Bld)on 09-11-2024 Basophils (Bld) [#/Vol] 0.04 10*3/uL Normal <0.11 [facility] Comment on above: Order Comment: Speci men Type: BLOOD SPECIMENOrdering Facility: [facility] Address: [address] [place] [address] Performed By: #### 5 7021-8 ####[facility] [id number] [place] [address] [place] Basophils/100 WBC (Bld) 0.7 % Normal [facility] Comment on above: Order Comment: Speci men Type: BLOOD SPECIMENOrdering Facility: [facility] Address: [address] [place] [address] Performed By: #### 5 7021-8 ####[facility] [id number] [place] [address] [place] Differential cell count method Nom (Bld) Auto Normal [facility] Comment on above: Order Comment: Speci men Type: BLOOD SPECIMENOrdering Facility: [facility] Address: [address] [place] [address] Performed By: #### 5 7021-8 ####[facility] MILLWNCLIA [id number] [place] [address] [place] Eosinophils (Bld) [#/Vol] 0.38 10*3/uL Normal <0.46 [facility] Comment on above: Order Comment: Speci men Type: BLOOD SPECIMENOrdering Facility: [facility] Address: [address] [place] [address] Performed By: #### 5 7021-8 ####[facility] ERWWESLEYLIA [id number] [place] [address] [place] Eosinophils/100 WBC (Bld) 6.6 % Normal [facility] Comment on above: Order Comment: Speci men Type: BLOOD SPECIMENOrdering Facility: [facility] Address: [address] [place] [address] Performed By: #### 5 7021-8 ####[facility] MIRAMARNCLIA [id number] [place] [address] [place] Erythrocyte distribution width (RBC) [Ratio] 13.2 % Normal 11.5-15.0 [facility] Comment on above: Order Comment: Speci men Type: BLOOD SPECIMENOrdering Facility: [facility] Address: [address] [place] [address] Performed By: #### 5 7021-8 ####[facility] MIRAMARNCLIA [id number] [place] [address] [place] Hematocrit (Bld) [Volume fraction] 34.8 % Low 36.0-46.0 [facility] Comment on above: Order Comment: Speci men Type: BLOOD SPECIMENOrdering Facility: [facility] Address: [address] [place] [address] Performed By: #### 5 7021-8 ####[facility] CENTERLIA [id number] [place] [address] [place] Hemoglobin (Bld) [Mass/Vol] 11.6 g/dL Normal 11.5-15.5 [facility] Comment on above: Order Comment: Speci men Type: BLOOD SPECIMENOrdering Facility: [facility] Address: [address] [place] [address] Performed By: #### 5 7021-8 ####[facility]ENTERLIA [id number] [place] [address] [place] Immature granulocytes (Bld) [#/Vol] 10*3/uL Normal <0.10 [facility] Comment on above: Order Comment: Speci men Type: BLOOD SPECIMENOrdering Facility: [facility] Address: [address] [place] [address] Performed By: #### 5 7021-8 ####[facility] [id number] [place] [address] [place] Immature granulocytes/100 WBC (Bld) 0.2 % Normal [facility] Comment on above: Order Comment: Speci men Type: BLOOD SPECIMENOrdering Facility: [facility] Address: [address] [place] [address] Performed By: #### 5 7021-8 ####[facility]ENTERLIA [id number] [place] [address] [place] Lymphocytes (Bld) [#/Vol] 2.42 10*3/uL Normal 1.00-4.00 [facility] Comment on above: Order Comment: Speci men Type: BLOOD SPECIMENOrdering Facility: [facility] Address: [address] [place] [address] Performed By: #### 5 7021-8 ####[facility] MIRAMARNCLIA [id number] [place] [address] [place] Lymphocytes/100 WBC (Bld) 42.2 % Normal [facility] Comment on above: Order Comment: Speci men Type: BLOOD SPECIMENOrdering Facility: [facility] Address: [address] [place] [address] Performed By: #### 5 7021-8 ####[facility] MEMECHICAGONCXOCHITL [id number] [place] [address] [place] MCH (RBC) [Entitic mass] 28.4 pg Normal 26.0-34.0 [facility] Comment on above: Order Comment: Speci men Type: BLOOD SPECIMENOrdering Facility: [facility] Address: [address] [place], [place] [id number] Performed By: #### 5 7021-8 ####[facility] MIRAMARNCINTERMOUNTAIN [facility]ALTH[facility] [id number] [place] [address] [place] MCHC (RBC) [Mass/Vol] 33.3 g/dL Normal 30.5-36.0 [facility] Comment on above: Order Comment: Speci men Type: BLOOD SPECIMENOrdering Facility: [facility] Address: [address] [place] [address] Performed By: #### 5 7021-8 ####[facility] MIRAMARNCA [id number] [address] [place] MCV (RBC) [Entitic vol] 85.3 fL Normal 80.0-100.0 [facility] Comment on above: Order Comment: Speci men Type: BLOOD SPECIMENOrdering Facility: [facility] Address: [address] [place] [address] Performed By: #### 5 7021-8 ####[facility]AMARNCINTERM[facility]ALTH[facility] [id number] [place] [address] [place] Monocytes (Bld) [#/Vol] 0.53 10*3/uL Normal <0.87 [facility] Comment on above: Order Comment: Speci men Type: BLOOD SPECIMENOrdering Facility: [facility] Address: [address] [place] [address] Performed By: #### 5 7021-8 ####[facility] MILLWNCLIA [id number] [place] [address] [place] Monocytes/100 WBC (Bld) 9.2 % Normal [facility] Comment on above: Order Comment: Speci men Type: BLOOD SPECIMENOrdering Facility: [facility] Address: [address] [place] [address] Performed By: #### 5 7021-8 ####[facility] MIRAMARNCLIA [id number] [place] [address] [place] Neutrophils (Bld) [#/Vol] 2.36 10*3/uL Normal 1.45-7.50 [facility] Comment on above: Order Comment: Speci men Type: BLOOD SPECIMENOrdering Facility: [facility] Address: [address] [place] [address] Performed By: #### 5 7021-8 ####[facility] [id number] [place] [address] [place] Neutrophils/100 WBC (Bld) 41.1 % Normal [facility] Comment on above: Order Comment: Speci men Type: BLOOD SPECIMENOrdering Facility: [facility] Address: [address] [place] [address] Performed By: #### 5 7021-8 ####[facility] CENTERLIA [id number] [place] [address] [place] Nucleated RBC (Bld) [#/Vol] 10*3/uL Normal <0.01 [facility] Comment on above: Order Comment: Speci men Type: BLOOD SPECIMENOrdering Facility: [facility] Address: [address] [place] [address] Performed By: #### 5 7021-8 ####[facility] CENTERLIA [id number] [place] [address] [place] Nucleated RBC/100 WBC (Bld) [Ratio] 0.0 /100 WBC Normal [facility] Comment on above: Order Comment: Speci men Type: BLOOD SPECIMENOrdering Facility: [facility] Address: [address] [place] [address] Performed By: #### 5 7021-8 ####[facility] MEMESpencerSUNITA [id number] [place] [address] [place] Platelet mean volume (Bld) [Entitic vol] 10.2 fL Normal 9.0-12.7 [facility] Comment on above: Order Comment: Speci men Type: BLOOD SPECIMENOrdering Facility: [facility] Address: [address] [place] [address] Performed By: #### 5 7021-8 ####[facility] MIRAMARWESLEYChiquita [id number] [place] [address] [place] Platelets (Bld) [#/Vol] 230 10*3/uL Normal 150-400 [facility] Comment on above: Order Comment: Speci men Type: BLOOD SPECIMENOrdering Facility: [facility] Address: [address] [place] [address] Performed By: #### 5 7021-8 ####[facility] MEMECHICAGOSUNITA [id number] [place] [address] [place] RBC (Bld) [#/Vol] 4.08 10*6/uL Normal 3.90-5.20 [facility] [place] Comment on above: Order Comment: Speci men Type: BLOOD SPECIMENOrdering Facility: [facility] Address: [address] [place] [address] Performed By: #### 5 7021-8 ####[facility] MIRAMARNCLIA [id number] [place] [address] [place] WBC (Bld) [#/Vol] 5.74 10*3/uL Normal 3.70-11.00 [facility] [place] Comment on above: Order Comment: Speci men Type: BLOOD SPECIMENOrdering Facility: [facility] Address: [address] [place] [address] Performed By: #### 5 7021-8 ####[facility] MIRAMARNCLIA [id number] [place] [address] [place] Comprehensive metabolic 2000 panelon 09-11-2024 Albumin [Mass/Vol] 4.2 g/dL Normal 3.9-4.9 [facility] Comment on above: Order Comment: Speci men Type: BLOOD SPECIMENOrdering Facility: [facility] Address: [address] [place] [address] Performed By: #### 2 4323-8, 74106-6 ####[facility] ERWNCA [id number] [place] [address] [place] ALP [Catalytic activity/Vol] 100 U/L Normal 34-123 [facility] Comment on above: Order Comment: Speci men Type: BLOOD SPECIMENOrdering Facility: [facility] Address: [address] [place] [address] Performed By: #### 2 4323-8, 24442-1 ####[facility] MIRAMARNCLIA [id number] [place] [address] [place] ALT [Catalytic activity/Vol] 16 U/L Normal 7-38 [facility] Comment on above: Order Comment: Speci men Type: BLOOD SPECIMENOrdering Facility: [facility] Address: [address] [place] [address] Performed By: #### 2 4323-8, ####[facility] MIRAMARNCLIA [id number] [place] [address] [place] Anion gap [Moles/Vol] 10 mmol/L Normal 8-15 [facility] Comment on above: Order Comment: Speci men Type: BLOOD SPECIMENOrdering Facility: [facility] Address: [address] [place] [address] Performed By: #### 2 4323-8, ####[facility] [id number] [place] [address] [place] AST [Catalytic activity/Vol] 18 U/L Normal 13-35 [facility] Comment on above: Order Comment: Speci men Type: BLOOD SPECIMENOrdering Facility: [facility] Address: [address] [place] [address] Performed By: #### 2 4323-8, ####[facility] JOANNENCXOCHITLChiquita [id number] [place] [address] [place] Bilirubin [Mass/Vol] 0.3 mg/dL Normal 0.2-1.3 [facility] Comment on above: Order Comment: Speci men Type: BLOOD SPECIMENOrdering Facility: [facility] Address: [address] [place] [address] Performed By: #### 2 4323-8, ####[facility] MEMECHICAGOWESLEYXOCHITLA [id number] [place] [address] [place] Calcium [Mass/Vol] 9.0 mg/dL Normal 8.5-10.2 [facility] Comment on above: Order Comment: Speci men Type: BLOOD SPECIMENOrdering Facility: [facility] Address: [address] [place] [address] Performed By: #### 2 4323-8, ####[facility] MEMECHICAGONCLIA [id number] [place] [address] [place] Chloride [Moles/Vol] 104 mmol/L Normal 98-107 [facility] Comment on above: Order Comment: Speci men Type: BLOOD SPECIMENOrdering Facility: [facility] Address: [address] [place], [place] [address] Performed By: #### 2 4323-8, 15484-9 ####[facility]ENTERLIA [id number] [place] [address] [place] CO2 [Moles/Vol] 24 mmol/L Normal 22-30 [facility] Comment on above: Order Comment: Speci men Type: BLOOD SPECIMENOrdering Facility: [facility] Address: [address] [place] [address] Performed By: #### 2 4323-8, ####[facility] MIRAMARNCLI [id number] [place] [address] [place] Creatinine [Mass/Vol] 0.64 mg/dL Normal 0.58-0.96 [facility] Comment on above: Order Comment: Speci men Type: BLOOD SPECIMENOrdering Facility: [facility] Address: [address] [place] [address] Performed By: #### 2 4323-8, ####[facility] [id number] [address] [place] Creatinine and Glomerular filtration rate.predicted panel (S/P/Bld) 103 mL/min/1.73m??? Normal >=60 [facility] Comment on above: Order Comment: Speci men Type: BLOOD SPECIMENOrdering Facility: [facility] Address: [address] [place] [address] Result Comment: Lynette mated Glomerular Filtration Rate (eGFR) is calculated using the 2020 CKD-EPI creatinine equation. This equation utilizes serum creatinine, sex, and age as parameters. The creatinine assay has traceable calibration to isotope dilution-mass spectrometry. Refer to KDIGO guidelines for clinical interpretation. In patients with unstable renal function, e.g. those with acute kidney injury, the eGFR may not accurately reflect actual GFR. Performed By: #### 2 4323-8, ####[facility] CENTERLIA [id number] [place] [address] [place] Glucose [Mass/Vol] 109 mg/dL High 74-99 [facility] Comment on above: Order Comment: Speci men Type: BLOOD SPECIMENOrdering Facility: [facility] Address: [address] [place], [place] [address] Result Comment: The [place] Diabetes Association (ADA) provides guidance for cutoff values for fasting glucose and random glucose. The ADA defines fasting as no caloric intake for at least 8 hours. Fasting plasma glucose results between 100 to 125 mg/dL indicate increased risk for diabetes (prediabetes). Fasting plasma glucose results greater than or equal to 126 mg/dL meet the criteria for diagnosis of diabetes. In the absence of unequivocal hyperglycemia, results should be confirmed by repeat testing. In a patient with classic symptoms of hyperglycemia or hyperglycemic crisis, random plasma glucose results greater than or equal to 200 mg/dL meet the criteria for diagnosis of diabetes. Reference: Standards of Medical Care in Diabetes 2016, [place] Diabetes Association. Diabetes Care. 2016.39(Suppl 1). Performed By: #### 2 4323-8, ####[facility] ERWNCLIA [id number] [place] [address] [place] Potassium [Moles/Vol] 3.9 mmol/L Normal 3.7-5.1 [facility] Comment on above: Order Comment: Speci men Type: BLOOD SPECIMENOrdering Facility: [facility] Address: [address] [place] [address] Performed By: #### 2 4323-8, ####[facility] ERWNCLIA [id number] [place] [address] [place] Protein [Mass/Vol] 6.8 g/dL Normal 6.3-8.0 [facility] Comment on above: Order Comment: Liliami men Type: BLOOD SPECIMENOrdering Facility: [facility] Address: [address] [place] [address] Performed By: #### 2 4323-8, ####[facility] CENTERLIA [id number] [place] [address] [place] Sodium [Moles/Vol] 138 mmol/L Normal 136-144 [facility] Comment on above: Order Comment: Speci men Type: BLOOD SPECIMENOrdering Facility: [facility] Address: [address] [place] [address] Performed By: #### 2 4323-8, 49084-2 ####[facility] [id number] [place] [address] [place] Urea nitrogen [Mass/Vol] 9 mg/dL Normal 7-21 [facility] Comment on above: Order Comment: Speci men Type: BLOOD SPECIMENOrdering Facility: [facility] Address: [address] [place] [address] Performed By: #### 2 4323-8, 24016-9 ####[facility] [id number] [place] [address] [place] HbA1c (Bld)on 09-11-2024 Average glucose Estimated from glycated hemoglobin (Bld) [Mass/Vol] 111 mg/dL Normal [facility] Comment on above: Order Comment: Speci men Type: BLOOD SPECIMENOrdering Facility: [facility] Address: [address] [place] [address] Result Comment: eAG: (Estimated average glucose) is a calculated value from HgbA1c and is outbound call center representative of the average blood glucose level in the last 2-3 month period. Performed By: #### 5 5454-3 ####[facility] LABCLIA [id number] [place] [address] [place] HbA1c (Bld) [Mass fraction] 5.5 % Normal 4.3-5.6 [facility] Comment on above: Order Comment: Speci men Type: BLOOD SPECIMENOrdering Facility: [facility] Address: [address] [place] [address] Result Comment: [place] Diabetes Association guidelines indicate that patients with HgbA1c in the range 5.7-6.4% are at increased risk for development of diabetes, and intervention by lifestyle modification may be beneficial. HgbA1c greater or equal to 6.5% is considered diagnostic of diabetes. Performed By: #### 5 5454-3 ####[facility] LABCLIA [id number] [facility] AVENUEDESK [id number], [facility] Lipid 1996 panelon 5 Cholesterol [Mass/Vol] 198 mg/dL Normal <200 [facility] Comment on above: Order Comment: Pari macias Type: BLOOD SPECIMENOrdering Facility: [facility] Address: [address] [place] [address] Result Comment: <200 mg/dL, Desirable 200-239 mg/dL, Borderline high >239 mg/dL, High Performed By: #### 3 016-3 ####[facility] LABCLIA [id number] [facility] [id number], [address] OF [facility]#### 80561-9 ####[facility] LABCLIA [id number] [facility] [place] [id number], [place] [address] [place] [facility] [id number] [address] STATES [place] Cholesterol in HDL [Mass/Vol] 52 mg/dL Normal >39 [facility] Comment on above: Order Comment: Pari macias Type: BLOOD SPECIMENOrdering Facility: [facility] Address: [address] [place] [address] Result Comment: 40-5 9 mg/dL, Acceptable >59 mg/dL, High: Negative risk factor for coronary heart disease <40 mg/dL, Low: Positive risk factor for coronary heart disease Performed By: #### 3 016-3 ####[facility] LABCLIA [id number] [facility] AVENUEDESK [id number], [facility] [place]#### 64398-3 ####[facility] LABCLIA [id number] [address] [id number] [address] Cholesterol in LDL [Mass/Vol] 127 mg/dL High <100 [facility] Comment on above: Order Comment: Speci men Type: BLOOD SPECIMENOrdering Facility: [facility] Address: [address] [place] [address] Result Comment: <100 mg/dL, Optimal 100-129 mg/dL, Near optimal/above optimal 130-159 mg/dL, Borderline high 160-189 mg/dL, High >189 mg/dL, Very high Secondary prevention optimal LDL Cholesterol levels are recommended to be <70 mg/dL LDL cholesterol is calculated using the Dhaliwal-NIH equation. Performed By: #### 3 016-3 ####[facility] LABIA [id number] [address] OF [facility]#### [address]226-9 ####[facility] LABCLIA [id number] [address] [id number] [address] Cholesterol in LDL/Cholesterol in HDL [Mass ratio] 2.44 {ratio} Normal <2.54 [facility] Comment on above: Order Comment: Speci men Type: BLOOD SPECIMENOrdering Facility: [facility] Address: [address] [place] [address] Result Comment: Refe alfreditoce: 1. National Cholesterol Education Program ATP III Guideline At-A-Glance Quick Desk Reference: National Heart, Lung, and Blood [place]. National Institutes of Health. 2001: NIH Publication No. 01-3305. 2. An International Atherosclerosis Society position paper: global recommendations for the management of dyslipidemia: executive summary, Atherosclerosis. 2014: 232(2):410-413. Performed By: #### 3 016-3 ####[facility] LABIA [id number] [address] [address] [place]#### 61177-0 ####[facility] LABCLIA [id number] [address], [facility]95 [facility] [id number] [place] [address] [place] Cholesterol in VLDL [Mass/Vol] 19 mg/dL Normal <30 [facility] Comment on above: Order Comment: Speci men Type: BLOOD SPECIMENOrdering Facility: [facility] Address: [address] [place] [address] Performed By: #### 3 016-3 ####[facility] LABCLIA [id number] [address] [place]#### 28892-7 ####[facility] LABCLIA [id number] [address], [address] STATES OF [facility] [id number] [place] [address] [place] Cholesterol non HDL [Mass/Vol] 146 mg/dL High <130 [facility] Comment on above: Order Comment: Speci men Type: BLOOD SPECIMENOrdering Facility: [facility] Address: [address] [place] [address] Result Comment: <130 mg/dL, Optimal 130-159 mg/dL, Near optimal/above optimal 160-189 mg/dL, Borderline high 190-219 mg/dL, High >219 mg/dL, Very high Secondary prevention optimal non HDL Cholesterol levels are recommended to be <100 mg/dL Performed By: #### 3 016-3 ####[facility] LABCLIA [id number] [address], [facility]95 [place]#### 50008-8 ####[facility] LABCLIA [id number] [address], [facility]95 [place] [facility]IC[facility] [id number] [place] [address] [place] Cholesterol.total/Cinthia sterol in HDL [Mass ratio] 3.81 {ratio} Normal <5.10 [facility] Comment on above: Order Comment: Speci men Type: BLOOD SPECIMENOrdering Facility: [facility] Address: [address] [place] [address] Performed By: #### 3 016-3 ####[facility] LABCLIA [id number] [address] [address] [place]#### 93890-4 ####[facility] LABCLIA [id number] [place] [address] [place] [facility] [id number] [place] [address] [place] FASTING TIME 12 hrs Normal [facility] Comment on above: Order Comment: Speci men Type: BLOOD SPECIMENOrdering Facility: [facility] Address: [address] [place], [place] [address] Performed By: #### 3 016-3 ####[facility] LABCLIA [id number] [place] [id number] [place]#### 76835-0 ####[facility] LABCLIA [id number] [place] [id number] [place] AMERIC[facility] [id number] [place] [address] [place] Triglyceride [Mass/Vol] 108 mg/dL Normal <150 [facility] Comment on above: Order Comment: Speci men Type: BLOOD SPECIMENOrdering Facility: [facility] Address: [address] [place] [address] Result Comment: <150 mg/dL, Normal 150-199 mg/dL, Borderline high 200-499 mg/dL, High >499 mg/dL, Very high Performed By: #### 3 016-3 ####[facility] LABCLIA [id number] [place] [address] [place]#### 48275-6 ####[facility] LABCLIA [id number] [address] [id number] [address] [place] Magnesium SerPl-mCncon 09-11 Magnesium [Mass/Vol] 2.0 mg/dL Normal 1.7-2.3 [facility] Comment on above: Order Comment: Speci men Type: BLOOD SPECIMENOrdering Facility: [facility] Address: [address] [place] [address] Performed By: #### 2 4323-8, 56720-7 ####[facility] [id number] [address] [place] TSH SerPl-aCncon 09-11-2024 TSH Qn 2.760 m[IU]/L Normal 0.270-4.200 [facility] Comment on above: Order Comment: Speci men Type: BLOOD SPECIMENOrdering Facility: [facility] Address: [address] [place] [address] Performed By: #### 3 016-3 ####[facility] LABCLIA [id number] [address] OF [place]#### [address]36[address]-4 ####[facility] LABIA [id number] [address] OF [facility] [id number] [address] [place] Echo 09-05-2024 CNPN Telephone (INTMWS) ITZEL SORIANO ([id number]) 1965 F Date Time Provider Department 09/05/24 NOHEMY DAVIS During your visit today, we recorded the following information about you: Lizandro Jj RN 09/05/2024 11:38 AM Signed Romy with was calling asking for Fadia to do a [facility] Pre-Certification for Pt's CT Calcium Scoring. I told her the provider put in in as self pay. She said sometimes the insurance won't pay, but she would like for Fadia to run it through for approval. Information e-mailed to Fadia Veliz for [facility] referral. JEFE Ochoa Amanda, RN 09/05/2024 3:11 PM Signed Provider put the Calcium CT Scoring as Self-Pay, and it was sent to [facility]. They are requesting a referral. There is no referral in. Would you be able to place referral and notify Fadia. JEFE Ochoa Rosa, JOHNATHAN.NEEDLE [employer]OM WEAVER 09/07/2024 7:19 AM Signed They need a referral for a CT? I'm not sure what referral they would need for that? Can we check or get more details on what specifically they need? Thank you Milton Pendleton MA 09/07/2024 9:00 AM Signed EXT [facility] referral has been created. Brittni notified. Milton Pendleton MA Allergies As of Date: 09/05/2024 Noted Allergy Reaction BACLOFEN 11/30/2019 8 - GI Upset CIPRO (CIPROFLOXACIN) 01/03/2007 4 - Hives 7 - Swelling GABAPENTIN 11/30/2019 5 - Intolerance MACROBID (NITROFURANTOIN MONOHYD/*01/03/2007 4 - Hives 7 - Swelling SULFA (SULFONAMIDE ANTIBIOTICS) 01/20/2005 4 - Hives 7 - Swelling TRAMADOL 12/13/2019 14 - Other: See Comments Comments: when taken with Baclofen TRIMETHOPRIM 06/27/2024 16 - Unknown Date Reviewed: 08/09/2024 Reviewed by: Nataly Tony OA - Fully Assessed Reason for Visit: [facility] Pre-Certification [Other] Prescriptions as of 09/07/2024 - omeprazole (PRILOSEC) 20 mg capsule Take 20 mg by mouth once daily. - mupirocin (BACTROBAN) 2 % ointment Apply to affected area three times a day. Treat for 10 days or as directed. Apply intranasal - tacrolimus (PROTOPIC) 0.03 % ointment Apply to affected area once daily. - ALPRAZolam (XANAX) 0.25 mg tablet Take 0.25 mg by mouth as needed for anxiety. - aspirin, enteric coated (ADULT LOW DOSE ASPIRIN) 81 mg EC tablet Take 1 tablet by mouth once daily. - hydroCHLOROthiazide 25 mg tablet Take 1 tablet by mouth once daily. - losartan (COZAAR) 100 mg tablet Take 1 tablet by mouth once daily. - atenolol (TENORMIN) 25 mg tablet Take 1 tablet by mouth once daily. Problem List As Of Date 09/05/2024 Noted Resolved LIPOMA OTHER SKIN AND SUBCUTANEOUS(Left back) [D1*01/20/2005 10/31/2020 Marfan's syndrome [Q87.40] Abnormal mammogram [R92.8] 01/07/2015 10/31/2020 Aortic root dilation (HCC) [I77.810] Family history of Marfan syndrome [Z82.79] Cervical spondylosis without myelopathy [M47.81*07/09/2020 09/25/2020 Chronic mixed headache syndrome [G44.89] 10/31/2020 Obesity, Class I, BMI 30-34.9 [E66.811] 10/31/2020 Anxiety [F41.9] 10/31/2020 Cervical radiculopathy [M54.12] 04/03/2020 Depression with anxiety [F41.8] 04/08/2021 Adnexal mass [N94.89] 04/20/2021 Liver cyst [K76.89] 04/20/2021 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] 09/12/2022 Intramural and subserous leiomyoma of uterus [D*03/22/2024 Adenomyosis of the uterus [N80.03] 03/22/2024 Primary hypertension [I10] 07/15/2024 Hypercholesterolemia [E78.00] 07/15/2024 Encounter Status:Closed by MILTON PENDLETON on 09/07/24 Normal [facility] Office Visiton 08-20-2024 Follow-up visit [id number] Itzel Soriano 1965 F Date Provider Department Center 08/20/2024 06108-YFSHHDEOOBELINDA JENKINS [facility] None No family history on file Level of Service:40051 ID OFFICE/OUTPATIENT ESTABLISHED MOD MDM 30 MIN Reason for Visit and Comments: Follow-up [389102] - Cervical MRI Normal [facility] Progress Noteon 08-20-2024 Progress Note NEUROSURGERY CONSULT NOTE Patient Name: Itzel Soriano Patient : 1965 PCP: LENNY DUMAS History of Present Ilness: 58 y.o. presents with cervical pain with right sided radiculopathy. Patient reports that she initially developed symptoms back in 2019 where she had numbness and tingling throughout the right side of her face right chest wall and right arm. She did go to the emergency department at that time for evaluation for stroke which resulted negative. She has completed physical therapy in the past and is now doing a home exercise plan previously prescribed by therapy. She reports that she has debilitating headaches neck pain with right arm pain numbness and tingling. She does state intermittent weakness, she has regained some strength with therapies but is still nervous of holding items and feels weak in her hand. She denies any symptoms in the left upper extremity. Yareli returns today to review the MRI of her cervical spine. She reports continued symptoms of right upper extremity radiculopathy. She reports numbness and tingling throughout basically the right upper quadrant of her body. She reports numbness and tingling in the face chest shoulder right upper extremity. She denies symptoms on the left side. She states that she has been through therapy has tried's exercises and feels that something is definitely wrong and nothing is helping with her symptoms. Chief Complaint Patient presents with Follow-up Cervical MRI Conservative Treatments: Physical Therapy: She has completed a course of physical therapy in the past and is now doing the previously prescribed home exercise plan at home with various stretches and maneuvers for the cervical spine. NSAID's: Iyzv-shm-bxciaqu as needed Narcotics no, she has been placed on gabapentin previously but did not tolerate muscle relaxants: No Epidural injections: No Chiropractor: No Past Medical History: History reviewed. No pertinent past medical history. Past Surgical History: History reviewed. No pertinent surgical history. Home Medications: Prior to Admission medications Medication Sig Start Date End Date Taking? Authorizing Provider ALPRAZolam (Xanax) 0.25 MG tablet TAKE 1/2 TO 1 (ONE-HALF TO ONE) TABLET BY MOUTH ONCE DAILY NEEDED FOR ANXIETY FOR UP TO 5 DAYS 05/30/24 Yes Historical Provider, ascorbic acid (Vitamin C) 1000 MG tablet Take 2,000 mg by mouth. Yes Historical Provider, aspirin 81 MG EC tablet Take 81 mg by mouth daily. Yes Historical Provider, atenolol (Tenormin) 25 MG tablet Take 25 mg by mouth daily. 03/01/24 Yes Historical Provider, clobetasol (Temovate) 0.05 % ointment Apply 1 Application topically daily. 06/07/24 Yes Historical Provider, hydroCHLOROthiazide (HYDRODiuril) 25 MG tablet Take 25 mg by mouth daily. 05/25/24 Yes Historical Provider, L-Lysine HCl 500 MG tablet Take 500 mg by mouth if needed. Yes Historical Provider, losartan (Cozaar) 100 MG tablet Take 100 mg by mouth daily. 03/01/24 Yes Historical Provider, omeprazole (PriLOSEC) [address] capsule Take 20 mg by mouth. 04/22/23 Yes Historical Provider, Zinc Acetate 50 MG capsule Take 1 capsule by mouth three times a week. Yes Historical Provider, Allergies: Sulfa antibiotics, Baclofen, Ciprofloxacin, Gabapentin, Nitrofurantoin, Tramadol, and Trimethoprim Social History: TOBACCO: reports that she has never smoked. She has never used smokeless tobacco. ETOH: reports no history of alcohol use. RECREATIONAL DRUG USE: Social History Substance and Sexual Activity Drug Use Never Family History: No family history on file. Review of Systems Constitutional: Negative. HENT: Negative. Eyes: Negative. Respiratory: Negative. Cardiovascular: Negative. Gastrointestinal: Negative. Endocrine: Negative. Genitourinary: Negative. Musculoskeletal: Positive for arthralgias, myalgias, neck pain and neck stiffness. Skin: Negative. Neurological: Positive for weakness and numbness. Psychiatric/Behavioral : Negative. Physical Examination: Vitals: 08/20/24 1118 BP: 93/60 Pulse: 80 Physical Exam Constitutional: Appearance: Normal appearance. HENT: Head: Normocephalic. Eyes: Extraocular Movements: Extraocular movements intact. Pupils: Pupils are equal, round, and reactive to light. Cardiovascular: Rate and Rhythm: Normal rate. Pulmonary: Effort: Pulmonary effort is normal. Abdominal: Palpations: Abdomen is soft. Musculoskeletal: Cervical back: Neck supple. Pain with movement present. Decreased range of motion. Skin: General: Skin is warm and dry. Neurological: General: No focal deficit present. Deep Tendon Reflexes: Reflex Scores: Brachioradialis reflexes are 1+ on the right side and 1+ on the left side. Patellar reflexes are 1+ on the right side and 1+ on the left side. Psychiatric: Mood and Affect: Mood normal. Judgment: Judgment (more content not included)... [address] 08-14-2024 36 Pt has been schedule d for July 20, at 11:[address] Jenkins. [facility] 36 PT did not answer. Message was left for the Pt to call the office to schedule , according to Hansa's message. [facility] 36 Hello, Was patient called to schedule follow up appointment? [address] 08-13-2024 36 Please call patient to schedule appointment to go over results of MRI cervical spine [facility] CNOVon 07-20-2024 CNOV Office Visit (INTMWS ) ITZEL SORIANO ([id number]) 1965 F Date Time Provider Department 07/20/24 10:20 AM LENNY DUMAS INTMWS During your visit today, we recorded the following information about you: Pulse Blood pressure Weight Height 75/minute 100/66 95.7 kg 1.727 m Lenny Dumas MD 08/18/2024 3:01 PM Signed This note was created using [employer]end-[employer]ogor[employer]. Subjective Itzel Soriano is a 58 year old female. Itzel is a 58-year-old female with a history of alopecia, eczema, and cervical radiculopathy, presenting for evaluation of multiple concerns, including dermatitis, lipomas, and recent lab results. Itzel reports a recent exacerbation of dermatitis after overusing hydrocortisone, which led to significant irritation on her eyelids, described as feeling like fiberglass. She was evaluated by an engineering technician parking yesterday and was prescribed tacrolimus, which provided significant relief after one application. She also reports similar dermatitis on both sides of her neck and externally in the vaginal area, for which she was prescribed a steroid but has not used it due to fear of further skin damage. She denies using CeraVe itch relief lotion, as it worsened her symptoms, but finds relief with Aquaphor. She also reports multiple lipomas on both sides of her body, back, and axillae, which have been present for several years and vary in size. One lipoma in the axillary area was tender last night, possibly due to manipulation. She denies any skin changes over the lipomas. Itzel has a history of alopecia, with hair regrowth noted as white. She expresses concern about a possible autoimmune condition. She also reports slow wound healing, with a recent scratch taking 3 months to heal. She has a history of nasal sores and requests a refill of mupirocin. She reports a recent episode of severe headaches lasting 3 weeks, for which she was evaluated in the ER and by a neurologist. She is scheduled for an MRI of the brain on the . She has a history of cervical radiculopathy and is under the care of a neurosurgeon. She requests a refill of alprazolam, which she found helpful for anxiety during the headache episodes. Recent lab results showed elevated cholesterol and glucose levels. She reports dietary changes, including increased vegetable intake, elimination of bread, and reduction of added sugars. She engages in regular stretching and Pilates exercises and plans to increase aerobic activity. She reports a weight loss to 197 lbs following a significant life event but has since regained the weight. She denies any issues with eating or drinking and reports stable blood pressure. Patient presents with: Bandar Robbins is a 58-year-old female with a history of alopecia, eczema, and cervical radiculopathy, presenting for evaluation of multiple concerns, including dermatitis, lipomas, and recent lab results. Itzel reports a recent exacerbation of dermatitis after overusing hydrocortisone, which led to significant irritation on her eyelids, described as feeling like fiberglass. She was evaluated by an engineering technician parking yesterday and was prescribed tacrolimus, which provided significant relief after one application. She also reports similar dermatitis on both sides of her neck and externally in the vaginal area, for which she was prescribed a steroid but has not used it due to fear of further skin damage. She denies using CeraVe itch relief lotion, as it worsened her symptoms, but finds relief with Aquaphor. She also reports multiple lipomas on both sides of her body, back, and axillae, which have been present for several years and vary in size. One lipoma in the axillary area was tender last night, possibly due to manipulation. She denies any skin changes over the lipomas. Itzel has a history of alopecia, with hair regrowth noted as white. She expresses concern about a possible autoimmune condition. She also reports slow wound healing, with a recent scratch taking 3 months to heal. She has a history of nasal sores and requests a refill of mupirocin. She reports a recent episode of severe headaches lasting 3 weeks, for which she was evaluated in the ER and by a neurologist. She is scheduled for an MRI of the brain on the . She has a history of cervical radiculopathy and is under the care of a neurosurgeon. She requests a refill of alprazolam, which she found helpful for anxiety during the headache episodes. Recent lab results showed elevated cholesterol and glucose levels. She reports dietary changes, including increased vegetable intake, elimination of bread, and reduction of added sugars. She engages in regular stretching and Pilates exercises and plans to increase aerobic activity. She reports a weight loss to 197 lbs following a significant life event but has since regained the weight. (more content not included)... Normal [facility] CNOVon 07-11-2024 CNOV Office Visit (LIANNE ) ITZEL SORIANO ([id number]) 1965 F Date Time Provider Department 07/11/24 3:30 PM TRUE MAYERS During your visit today, we recorded the following information about you: Pulse Blood pressure Weight Height 79/minute 120/73 93.4 kg 1.727 m Last Period 07/11/24 True Mayers MD 07/15/2024 8:57 PM [facility] Eliseo Duran Department of Cardiovascular Medicine SECTION OF CARDIOVASCULAR IMAGING OUTPATIENT VISIT DATE July 11, 2024 OUTPATIENT VISIT TYPE ESTABLISHED PRIMARY CARE PHYSICIAN: Lenny Dumas MD [id number] [facility] [id number] CHIEF COMPLAINT: Squeezing pain in the chest HISTORY OF PRESENT ILLNESS: Ms. Jaimes ([facility]) Bo is a 58 year old female who presents today for follow-up visit. She has history of Marfan syndrome and aortic root dilation. She was last seen in the office in September 2023 and she had a CTA chest that showed mild stable dilation of the aortic root (4.2 x 4.4 cm) with normal appearing coronary arteries. She was reassured and recommended continued surveillance and medical therapy with atenolol and losartan. Ms. Soriano continues to follow up with PCP. Since her last visit, she states that she is doing well. She reports that the HCTZ she was prescribed last visit has helped with her BP but it has still been high at home. She states that her BP in the morning is around 130/76-82. She states that a few weeks ago she went to the ER because she felt like she was having a very bad headache. She notes that she was given treatment at the time that provided some relief. Pt states that she has an appointment with a headache specialist in July. Today, she has no cardiac symptoms and she denies anginal chest pain, pressure or heaviness, shortness of breath, orthopnea, edema, PND, lightheadedness or syncope. Ms. Soriano is currently on aspirin, HCTZ, atenolol and losartan. PAST CARDIAC HISTORY: Ms. Soriano has been seen in the past for Marfan's syndrome and aortic root dilation. She was last seen on October 19, 2023 PAST MEDICAL HISTORY Diagnosis Date Aortic root dilation Cervical radiculopathy 04/03/2020 Cervical spondylosis without myelopathy 04/03/2020 Chronic mixed headache syndrome 10/31/2020 Coitus painful for female Endometriosis Family history of Marfan syndrome H/O alopecia areata Infertility, female LIPOMA OTHER SKIN AND SUBCUTANEOUS(Left back) 01/20/2005 Major depressive disorder, single episode, mild 2007 Marfan's syndrome (HCC) Lens dislocation and aortic root dilation Ovarian cyst Uterine fibroid PAST SURGICAL HISTORY Procedure Laterality Date CATARACT SURGERY, COMPLEX Right 05/15/1992 CLEAR LENSECTOMY Left 03/24/2001 Left Lensectomy and anterior Chamber IOL Placement- Performed by Dr. Roberto Lucero CLEAR LENSECTOMY Right 09/19/2013 Lensectomy with Anterior Chamber IOL Placement- Performed by Dr. Jomar Lucero COLONOSCOPY SCREENING 01/16/2019 [facility]. Negative. Repeat 10 years. EXCISION TUMOR SOFT TISSUE BACK/FLANK SUBQ <3CM 01/27/2007 left scapular FNA WITH IMAGING Left 01/10/2015 U/S FNA left breast 3 Oclock LAPS ABD PRTMANDOMENTUM DX W/WO SPEC BR/WA SPX 1981 Laparoscopy LASER IRIDOTOMY,IRIDECTOMY, ONE EYE Right 05/16/1992 LASER IRIDOTOMY,IRIDECTOMY, ONE EYE Left 03/24/2001 [facility] SEC MEMBRANOUS CTRC CORNEO-SCLL SCTJ Bilateral ,2013 Insert lens prosthesis RPR 1ST INGUN HRNA AGE 5 YRS/> REDUCIBLE 1996 Hernia repair, inguinal SOCIAL HISTORY Social History Tobacco Use Smoking status: Former Current packs/day: 0.00 Average packs/day: 1 pack/day for 31.0 years (31.0 ttl pk-yrs) Types: Cigarettes Start date: 02/29/1980 Quit date: 02/28/2011 Years since quittin.3 Smokeless tobacco: Never Vaping Use Vaping status: Never Used Substance Use Topics Alcohol use: No Drug use: No FAMILY HISTORY Problem Relation Age of Onset Heart Mother Aortic disection (Marfan's syndrome) Lipids Mother other (Marfans) Mother Heart Father CAD and Heart failure Lipids Father Hypertension Father Heart Sister Cataract Sister Detached Retina Sister Cataract Sister Cataract Sister Blindness Sister other (Marfan's ) Sister Cataract Brother other (Aortic dissection) Brother Cataract Brother other (Aortic aneurysms) Brother Breast Cancer Paternal Grandmother BREAST Diabetes Paternal Grandmother ALLERGIES: ALLERGIES Allergen Reactions Baclofen GI Upset Cipro [Ciprofloxaci* Hives, Swelling Gabapentin Intolerance Macrobid [Nitrofura* Hives, Swelling Sulfa (Sulfonamide * Hives, Swelling Tramadol Other: See Comments when taken with Baclofen Trimethoprim Unknown MEDICATIONS: ALPRAZolam (XANAX) 0.25 mg tablet Take 0.25 mg by mouth as needed for anxiety. hydroCHLOROthiazide 25 mg tablet Chuck (more content not included)... Normal [facility] ECG COMPLETEon 07-11-2024 ECG COMPLETE Ventricular Rate : 6 5 BPM Atrial Rate : 65 BPM P-R Interval : 142 ms QRS Duration : 90 ms Q-T Interval : 430 ms QTC Calculation(Bazett) : 447 ms Calculated P [place] : 42 degrees Calculated R [place] : 0 degrees Calculated T [place] : 51 degrees SINUS RHYTHM WITH OCCASIONAL PREMATURE VENTRICULAR COMPLEXES NONSPECIFIC ST AND T WAVE ABNORMALITY ABNORMAL ECG Confirmed by RAVEN DE LA GARZA MD ([id number]) on 08/04/2024 10:51:08 PM NAME : ITZEL SORIANO PID : [id number] : 1965 Gender : Female Race : ORD : [id number] Procedure Date : Jul 11 2024 14:13:16 Edit Date : Aug 04 2024 22:51:13 Diagnosis: SINUS RHYTHM WITH OCCASIONAL PREMATURE VENTRICULAR COMPLEXES NONSPECIFIC ST AND T WAVE ABNORMALITY ABNORMAL ECG Confirmed by RAVEN DE LA GARZA MD ([id number]) on 08/04/2024 10:51:08 PM Test Reason : Location : 314 : 14 J14-03 Overread By : RAVEN DE LA GARZA MD Edited By : RAVEN DE LA GARZA MD Referred By : TRUE MAYERS Acquired by : JUSTINO TOSCANO Normal [facility] ECHOon 07-11-2024 Echocardiography Echocardiography Report: Transthoracic Echo [facility] ROGER-2 Date of service: 07/11/2024 1:03:17 PM MEDIA DEVELOPER Ordering physician: TRUE MAYERS Indication: Marfan's Syndrome Technologist: Chana Good and Tea Smith Interpreting physician: Clarence Piña MD PATIENT: Name: MRS. ITZEL SORIANO : 1965 Age: 58 years Gender: F Primary rhythm: sinus. Height: 170.20 cm BSA: 2.12 m Weight: 95.30 kg BMI: 32.9 kg/m Heart rate 71 bpm Blood pressure 122/82 mmHg Technically difficult exam due to body habitus. Color Doppler was utilized to interrogate the cardiac valves assessed and spectral Doppler was utilized to determine the flow velocities and pressure gradients reported in this exam. Myocardial strain analysis was performed in this exam to aid in the assessment of cardiac function. MEASUREMENTS: Value Indexed Normal Max aortic dimension 4.4 cm Ao < 3.8 Left atrial volume 48 ml (Wilde's) 23 ml/m Bradly <= 34 LV ID (diastole) 5.0 cm (2D) 2.36 cm/m LV ID (systole) 3.1 cm (2D) 1.46 cm/m IVS, leaflet tips 1.0 cm (2D) Posterior wall thickness 1.0 cm (2D) Left ventricular mass 182 g (2D) 86 g/m Global peak long strain -17.7 % LV stroke volume 69 ml (2D biplane) LV end diastolic volume 118 ml (2D biplane) 55.8 ml/m 29<=EDVi<62 LV end systolic volume 49 ml (2D biplane) 23.2 ml/m Ejection Fraction 58 % (2D biplane) EF > 54 FINDINGS: LEFT VENTRICLE The left ventricle is normal in size. Left ventricular systolic function is normal. Global LV myocardial strain is normal. Normal left ventricular diastolic function. Mitral annular lateral E/e': 8.7. Mitral annular septal E/e': 11.6. Wall Motion: All scored segments are normal. RIGHT VENTRICLE The right ventricle is normal in size. Right ventricular systolic function is normal. RV systolic tissue Doppler velocity is 15.2 cm/s. Tricuspid annular displacement is 2.8 cm. Estimated right ventricular systolic pressure is likely underestimated due to a weak or incomplete tricuspid regurgitation signal and is, at least, 28 mmHg consistent with normal pulmonary artery pressures. Estimated right atrial pressure is 8 mmHg based on IVC assessment. LEFT ATRIUM The left atrial cavity is normal in size. Pulmonary Veins: The pulmonary venous pattern showed normal systolic flow. RIGHT ATRIUM The right atrial cavity is normal in size. Inferior Vena Cava: The inferior vena cava appears normal measuring 1.8 cm. The vessel decreases less than 50 percent with inspiration. MITRAL VALVE There is mild (1+) mitral valve regurgitation due to prolapse. There is mild thickening. The pressure half time is 67 msec. The peak mitral E/A ratio is 0.72. The average mitral E/e' ratio is 10.1. The mitral flow deceleration time is 232 msec. TRICUSPID VALVE There is mild (1+) tricuspid valve regurgitation. There is mild thickening. The hepatic venous pattern showed normal systolic flow. AORTIC VALVE There is trace aortic valve regurgitation. Tricuspid aortic valve. There is mild thickening. The peak gradient is 7 mmHg (peak velocity = 133.0 cm/s). PULMONIC VALVE There is trace (trace - 1+) pulmonic valve regurgitation. There is no thickening. AORTA The visualized aorta is dilated. Measurements - Aortic valve annulus 2.1 cm. Sinus: 4.4 cm. Sinotubular junction 3.3 cm. Mid ascending aorta 3.7 cm. Distal ascending aorta 3.7 cm. Mid arch 3.0 cm. PULMONARY ARTERIES The pulmonary arteries are normal. INTERATRIAL SEPTUM There is no evidence of intracardiac shunting as detected by Doppler. INTERVENTRICULAR SEPTUM There is no flow through the interventricular septum as detected by Doppler. PERICARDIUM There is no pericardial effusion. There is an epicardial fat pad. CONCLUSIONS: - Technically difficult exam due to body habitus. - Exam indication: Marfan's Syndrome - The left ventricle is normal in size. Left ventricular systolic function is normal. EF = 58 5% (2D biplane) Normal left ventricular diastolic function. - The right ventricle is normal in size. Right ventricular systolic function is normal. - The visualized aorta is dilated with a maximal dimension of 4.4 cm. - Mild posterior MVP with (1+) MR. - Estimated right ventricular systolic pressure is likely underestimated due to a weak or incomplete tricuspid regurgitation signal and is, at least, 28 mmHg consistent with normal pulmonary artery pressures. Estimated right atrial pressure is 8 mmHg based on IVC assessment. - Exam was compared with the prior echocardiographic exam performed on 07/05/2022. No significant changes. * * * Final * * * CC [employer] Image : [id number] Normal [facility] Office Visiton 07-02-2024 Follow-up visit [id number] Itzel Soriano 1965 F Date Provider Department Center 07/02/2024 [id number] JENKINS [facility] None No family history on file Level of Service:[id number] ID OFFICE/OUTPATIENT NEW MODERATE MDM 45 MINUTES Reason for Visit and Comments: New Patient [542] - Pinched nerve C-6, C-7. Has Discs Normal [facility] Progress Noteon 07-02-2024 Progress Note NEUROSURGERY CONSULT NOTE Patient Name: Itzel Soriano Patient : 1965 PCP: No primary care provider on file. History of Present Ilness: 58 y.o. presents with cervical pain with right sided radiculopathy. Patient reports that she initially developed symptoms back in 2019 where she had numbness and tingling throughout the right side of her face right chest wall and right arm. She did go to the emergency department at that time for evaluation for stroke which resulted negative. She has completed physical therapy in the past and is now doing a home exercise plan previously prescribed by therapy. She reports that she has debilitating headaches neck pain with right arm pain numbness and tingling. She does state intermittent weakness, she has regained some strength with therapies but is still nervous of holding items and feels weak in her hand. She denies any symptoms in the left upper extremity. Chief Complaint Patient presents with New Patient Pinched nerve C-6, C-7. Has Discs Conservative Treatments: Physical Therapy: She has completed a course of physical therapy in the past and is now doing the previously prescribed home exercise plan at home with various stretches and maneuvers for the cervical spine. NSAID's: [id number] as needed Narcotics no, she has been placed on gabapentin previously but did not tolerate muscle relaxants: No Epidural injections: No Chiropractor: No Past Medical History: History reviewed. No pertinent past medical history. Past Surgical History: History reviewed. No pertinent surgical history. Home Medications: Prior to Admission medications Medication Sig Start Date End Date Taking? Authorizing Provider ALPRAZolam (Xanax) 0.25 MG tablet TAKE 1/2 TO 1 (ONE-HALF TO ONE) TABLET BY MOUTH ONCE DAILY NEEDED FOR ANXIETY FOR UP TO 5 DAYS 05/30/24 Yes Historical Provider, ascorbic acid (Vitamin C) 1000 MG tablet Take 2,000 mg by mouth. Yes Historical Provider, aspirin 81 MG EC tablet Take 81 mg by mouth daily. Yes Historical Provider, atenolol (Tenormin) 25 MG tablet Take 25 mg by mouth daily. 03/01/24 Yes Historical Provider, clobetasol (Temovate) 0.05 % ointment Apply 1 Application topically daily. 06/07/24 Yes Historical Provider, hydroCHLOROthiazide (HYDRODiuril) 25 MG tablet Take 25 mg by mouth daily. 05/25/24 Yes Historical Provider, L-Lysine HCl 500 MG tablet Take 500 mg by mouth if needed. Yes Historical Provider, losartan (Cozaar) 100 MG tablet Take 100 mg by mouth daily. 03/01/24 Yes Historical Provider, omeprazole (PriLOSEC) [address] capsule Take 20 mg by mouth. 04/22/23 Yes Historical Provider, Zinc Acetate 50 MG capsule Take 1 capsule by mouth three times a week. Yes Historical Provider, Allergies: Baclofen, Ciprofloxacin, Gabapentin, Nitrofurantoin, and Tramadol Social History: TOBACCO: reports that she has never smoked. She has never used smokeless tobacco. ETOH: reports no history of alcohol use. RECREATIONAL DRUG USE: Social History Substance and Sexual Activity Drug Use Never Family History: No family history on file. Review of Systems Constitutional: Negative. HENT: Negative. Eyes: Negative. Respiratory: Negative. Cardiovascular: Negative. Gastrointestinal: Negative. Endocrine: Negative. Genitourinary: Negative. Musculoskeletal: Positive for arthralgias, myalgias, neck pain and neck stiffness. Skin: Negative. Neurological: Positive for weakness and numbness. Psychiatric/Behavioral : Negative. Physical Examination: Vitals: 07/02/24 1113 BP: 118/77 Pulse: 83 Physical Exam Constitutional: Appearance: Normal appearance. HENT: Head: Normocephalic. Eyes: Extraocular Movements: Extraocular movements intact. Pupils: Pupils are equal, round, and reactive to light. Cardiovascular: Rate and Rhythm: Normal rate. Pulmonary: Effort: Pulmonary effort is normal. Abdominal: Palpations: Abdomen is soft. Musculoskeletal: Cervical back: Neck supple. Pain with movement present. Decreased range of motion. Skin: General: Skin is warm and dry. Neurological: General: No focal deficit present. Deep Tendon Reflexes: Reflex Scores: Brachioradialis reflexes are 1+ on the right side and 1+ on the left side. Patellar reflexes are 1+ on the right side and 1+ on the left side. Psychiatric: Mood and Affect: Mood normal. Judgment: Judgment normal. Neurological Exam Mental Status Awake, alert and oriented to person, place and time. Cranial Nerves CN III, IV, : Extraocular movements intact bilaterally. Pupils equal round and reactive to light bilaterally. Motor Strength is 5/5 in all four extremities except as noted. 4/5 R triceps and finger extension. Sensory Sensation is intact to light touch, pinprick, vibration and proprioception in all four extremities. Reflexes Right Left Brachioradialis 1+ 1+ Patellar (more content not included)... Normal [facility] 12 Lead EKGon 06-27-2024 12 Lead EKG [facility] [facility] [address] [place] [address] 12 Lead EKG 06/27/24 1916 MR#: [id number] Acct: [id number] Name: ITZEL SORIANO Rep #: [id number] : 1965 58 From: Karri Bingham MD Attending Dr: Status: DEP ER Ordering Dr: Alton Rodriguez DO Date: 06/27/24 Location: ED Sex: F C Admitted: Test Reason : HEADACHE Blood Pressure : */* mmHG Vent. Rate : 78 BPM Atrial Rate : 78 BPM P-R Int : 138 ms QRS Dur : 86 ms QT Int : 404 ms P-R-T Axes : 36 -2 39 degrees QTcB Int : 460 ms Normal sinus rhythm Minimal voltage criteria for LVH, may be normal variant ( R in aVL ) Nonspecific ST abnormality Abnormal ECG Confirmed by KARRI BINGHAM MD ([id number]), order editor LIZANDRO ABRAHAM ([id number]) on 06/28/2024 1:29:30 PM Referred By: KASIE Confirmed By: KARRI BINGHAM MD 05/01/25 1329 Date Karri Bingham MD CC: Dr. Alton Rodriguez, DO; Dr. Lenny Dumas MD Signed Normal [facility] Absolute lymphocyte countOrd ered By: Alton Rodriguez on 06-27-2024 Lymphocytes Auto (Unsp spec) [#/Vol] 3.60 10*3/uL 0.83-4.51 [facility] Absolute neutrophil countOrd ered By: Alton Rodriguez on 06-27-2024 Neutrophils (Bld) [#/Vol] 4.0 10*3/uL 2.0-7.7 [facility] Anion gap in Serum or Plasma Ordered By: Alton Rodriguez on 06-27-2024 Anion gap [Moles/Vol] 14 mmol/L 5-15 [facility] Automated lymphocyte count a s percentage of total leukocytesOrdered By: Alton Rodriguez on 06-27-2024 Lymphocytes/100 WBC Auto (Unsp spec) 41.9 % High 19-41 [facility] BUN/creatinine ratioOrdered By: Alton Rodriguez on 06-27-2024 Urea nitrogen/Creatinine [Mass ratio] 17.5 mg/mg 10- [facility] Basic Metabolic Profile (BMP )on 06-27-2024 BUN/CRE 17.5 RATIO Normal - [facility] Comment on above: Performed By: #### L 500.2500, L101.9900, L100.0100 #### [facility] Laboratory [address] [place], [address] Calcium [Mass/Vol] 9.6 mg/dL Normal 7.6-11.0 [facility] Comment on above: Performed By: #### L 500.2500, L101.9900, L100.0100 #### [facility] Laboratory [address] [place], [address] Chloride [Moles/Vol] 101 mmol/L Normal 98-108 [facility] Comment on above: Performed By: #### L 500.2500, L101.9900, L100.0100 #### [facility] Laboratory [address] [place], [address] CO2 [Moles/Vol] 23.4 mmol/L Normal 21.0-32.0 [facility] Comment on above: Performed By: #### L 500.2500, L101.9900, L100.0100 #### [facility] Laboratory [address] [place], [address] Creatinine [Mass/Vol] 0.73 mg/dL Normal 0.70-1.20 [facility] Comment on above: Performed By: #### L 500.2500, L101.9900, L100.0100 #### [facility] Laboratory [address] [place], [address] ECRCL 102.17 ml/min Normal 50-250 [facility] Comment on above: Performed By: #### L 500.2500, L101.9900, L100.0100 #### [facility] Laboratory [address] [place], [address] GAP 14 Normal 5-15 [facility] Comment on above: Performed By: #### L 500.2500, L101.9900, L100.0100 #### [facility] Laboratory [address] [place], [address] GFR/1.73 sq M.predicted among non-blacks MDRD (S/P/Bld) [Vol rate/Area] 96 mL/min/{1.73_m2} Normal >60 [facility] Comment on above: Result Comment: mL/m in/1.73m2 CKD-EPI Creatinine Equation (2020) Performed By: #### L 500.2500, L101.9900, L100.0100 #### [facility] Laboratory [address] [place], [address] Glucose [Mass/Vol] 93 mg/dL Normal 70-99 [facility] Comment on above: Performed By: #### L 500.2500, L101.9900, L100.0100 #### [facility] Laboratory [address] [place], [address] Potassium [Moles/Vol] 3.4 mmol/L Normal 3.3-5.1 [facility] Comment on above: Performed By: #### L 500.2500, L101.9900, L100.0100 #### [facility] Laboratory [address] [place], [address] Sodium [Moles/Vol] 138 mmol/L Normal 133-145 [facility] Comment on above: Performed By: #### L 500.2500, L101.9900, L100.0100 #### [facility] Laboratory [address] [place], [address] Urea nitrogen [Mass/Vol] 13 mg/dL Normal 4-19 [facility] Comment on above: Performed By: #### L 500.2500, L101.9900, L100.0100 #### [facility] Laboratory [address] [place], [address] Basophil percentageOrdered B y: Alton Rodriguez on 06-27-2024 Basophils/100 WBC (Bld) 0.6 % 0-1 [facility] Brain/Head without Contrasto n 06-27-2024 Brain/Head without Contrast [facility] Imaging Services [address] [place] [address] Brain/Head without Contrast MR#: [id number] Acct: [id number] Name: ITZEL SORIANO Rep #: [id number] : 1965 F 58 From: Ricardo Rangel MD PCP: Dr. Lenny Dumas MD Status: REG ER Study: Brain/Head without Contrast Date of Exam: 05/31 Exam# [id number] Ordering Dr: Alton Rodriguez DO PROCEDURE: BRAIN/HEAD WITHOUT CONTRAST 06/27/2024 REASON FOR EXAM: PAIN TECHNIQUE: Head CT without intravenous contrast. Coronal and Sagittal reconstruction series were provided. One or more dose reduction techniques were used (e.g., Automated exposure control, adjustment of the mA and/or kV according to patient size, use of iterative reconstruction technique. FINDINGS: Brain: Normal CSF Spaces: Normal Sinuses/Mastoids: Clear at visualized levels Bones: Unremarkable. CT/Brain/Head without Contrast IMPRESSION: NORMAL NONCONTRAST HEAD CT. Reading Location: [id number] CC: Dr. Alton Rodriguez DO; Dr. Lenny Dumas MD Tray Checker: Signed Normal [facility] CBC W/Diff, Automatedon 05-31 Absolute Lymph 3.60 X10 3/uL Normal 0.83-4.51 [facility] Comment on above: Performed By: #### L 500.2500, L101.9900, L100.0100 ####[facility] [address] [place], [address] Absolute Neut 4.0 X10 3/uL Normal 2.0-7.7 [facility] Comment on above: Performed By: #### L 500.2500, L101.9900, L100.0100 ####[facility] [address] [place], [address] Basophils/100 WBC (Bld) 0.6 % Normal 0-1 [facility] Comment on above: Performed By: #### L 500.2500, L101.9900, L100.0100 ####[facility] [address] [place], [address] Eosinophils/100 WBC (Bld) 3.6 % Normal 0-5 [facility] Comment on above: Performed By: #### L 500.2500, L101.9900, L100.0100 ####[facility] [address] [place], [address] Erythrocyte distribution width (RBC) [Ratio] 12.3 % Normal 11.6-14.6 [facility] Comment on above: Performed By: #### L 500.2500, L101.9900, L100.0100 ####[facility] [address] [place], [address] Hematocrit (Bld) [Volume fraction] 37.2 % Normal 37-47 [facility] Comment on above: Performed By: #### L 500.2500, L101.9900, L100.0100 ####[facility] [address] [place], [address] Hemoglobin (Bld) [Mass/Vol] 12.9 g/dL Normal 12.0-15.0 [facility] Comment on above: Performed By: #### L 500.2500, L101.9900, L100.0100 ####[facility] [address] [place], [address] IG% 0.200 Normal 0.0-0.9 [facility] Comment on above: Result Comment: IG% - Immature Granulocytes (promyelocytes, myelocytes and metamyelocytes) > 1% indicates that a LEFT SHIFT is Present. Performed By: #### L 500.2500, L101.9900, L100.0100 ####[facility] [address] [place], [address] Lymphocytes/100 WBC (Bld) 41.9 % High 19-41 [facility] Comment on above: Performed By: #### L 500.2500, L101.9900, L100.0100 ####[facility] [address] [place], [address] MCH (RBC) [Entitic mass] 29.0 pg Normal 27.0-32.0 [facility] Comment on above: Performed By: #### L 500.2500, L101.9900, L100.0100 ####[facility] [address] [place], [address] MCHC (RBC) [Mass/Vol] 34.7 g/dL Normal 32-36 [facility] Comment on above: Performed By: #### L 500.2500, L101.9900, L100.0100 ####[facility] [address] [place], [address] MCV (RBC) [Entitic vol] 83.6 fL Normal 81-99 [facility] Comment on above: Performed By: #### L 500.2500, L101.9900, L100.0100 ####[facility] [address] [place], [address] Monocytes/100 WBC (Bld) 7.3 % Normal 0-10 [facility] Comment on above: Performed By: #### L 500.2500, L101.9900, L100.0100 ####[facility] [address] [place], [address] Neutrophils/100 WBC (Bld) 46.4 % Low 47-70 [facility] Comment on above: Performed By: #### L 500.2500, L101.9900, L100.0100 ####[facility] [address] [place], [address] Nucleated RBC (Bld) [#/Vol] 0 10*3/uL Normal 0-5 [facility] Comment on above: Performed By: #### L 500.2500, L101.9900, L100.0100 ####[facility] [address] [place], [address] Platelet mean volume (Bld) [Entitic vol] 10.5 fL Normal 6.2-12.0 [facility] Comment on above: Performed By: #### L 500.2500, L101.9900, L100.0100 ####[facility] [address] [place], [address] Platelets (Bld) [#/Vol] 299 10*3/uL Normal 150-450 [facility] Comment on above: Performed By: #### L 500.2500, L101.9900, L100.0100 ####[facility] [address] [place], [address] RBC (Bld) [#/Vol] 4.45 10*6/uL Normal 4.2-5.4 [facility] Comment on above: Performed By: #### L 500.2500, L101.9900, L100.0100 ####[facility] [address] [place], [address] RDW SD 37.4 fl Normal 35.1-43.9 [facility] Comment on above: Performed By: #### L 500.2500, L101.9900, L100.0100 ####[facility] [address] [place], [address] WBC (Bld) [#/Vol] 8.6 10*3/uL Normal 4.4-11.0 [facility] Comment on above: Performed By: #### L 500.2500, L101.9900, L100.0100 ####[facility] [address] [place], [address] CNOVon 06-27-2024 CNOV Office Visit (UCWSTR ) ITZEL SORIANO ([id number]) 1965 F Date Time Provider Department 06/27/24 5:15 PM [facility] During your visit today, we recorded the following information about you: Temperature Pulse Respiration Blood pressure 97.5 degrees 88/minute 1/minute 122/82 Gabby Hughes APRN.[employer] 06/27/2024 5:35 PM Signed Patient triaged at [facility]. Here today with 10 days of severe headache and right worsening right facial numbness. I will refer to ER. Patient stable. Allergies As of Date: 06/27/2024 Noted Allergy Reaction BACLOFEN 11/30/2019 8 - GI Upset CIPRO (CIPROFLOXACIN) 01/03/2007 4 - Hives 7 - Swelling GABAPENTIN 11/30/2019 5 - Intolerance MACROBID (NITROFURANTOIN MONOHYD/*01/03/2007 4 - Hives 7 - Swelling SULFA (SULFONAMIDE ANTIBIOTICS) 01/20/2005 4 - Hives 7 - Swelling TRAMADOL 12/13/2019 14 - Other: See Comments Comments: when taken with Baclofen Date Reviewed: 06/27/2024 Reviewed by: Edel Ingram MA - Fully Assessed Reason for Visit: Primary Visit Diagnosis:Numbness and tingling of right face [R20.0, R20.2] Prescriptions as of 06/27/2024 - clobetasol (TEMOVATE) 0.05 % ointment Apply 1 application to affected area once daily. Apply to affected area once daily for 12 weeks. Then for maintenance therapy apply to affected area twice weekly. - hydroCHLOROthiazide 25 mg tablet Take 1 tablet by mouth once daily. - losartan (COZAAR) 100 mg tablet Take 1 tablet by mouth once daily. - atenolol (TENORMIN) 25 mg tablet Take 1 tablet by mouth once daily. - omeprazole (PRILOSEC) 20 mg capsule Take 1 capsule by mouth daily before breakfast. 1/2 hr before meal. - mupirocin (BACTROBAN) 2 % ointment Apply to affected area three times daily. Treat for 10 days or as directed. Apply intranasal - calcium Carbonate 300 mg, 750mg, (TUMS) 300 mg (750 mg) chewable tablet Take by mouth as needed. - vitamin B complex (B COMPLEX 1 ORAL) Take 1 capsule by mouth every Tuesday and Tuesday. - cholecalciferol, vitamin D3, (VITAMIN D3 ORAL) Take 10,000 Units by mouth. Twice a week - calcium carb/D3/magnesium/zinc (CALCIUM CARB-D3-MAG OX-ZINC OX ORAL) Take by mouth. 1 capsule three times a week - Ascorbic Acid (VITAMIN C) 1,000 mg tablet Take 2,000 mg by mouth. Three times a week - Zinc Acetate, Oral, 50 mg (zinc) cap Take 1 capsule by mouth. Three times a week - lysine 500 mg tab Take 500 mg by mouth as needed. - aspirin, enteric coated (ADULT LOW DOSE ASPIRIN) 81 mg EC tablet Take 1 tablet by mouth once daily. Problem List As Of Date 06/27/2024 Noted Resolved LIPOMA OTHER SKIN AND SUBCUTANEOUS(Left back) [D1*01/20/2005 10/31/2020 Marfan's syndrome [Q87.40] Abnormal mammogram [R92.8] 01/07/2015 10/31/2020 Aortic root dilation (HCC) [I77.810] Family history of Marfan syndrome [Z82.79] Cervical spondylosis without myelopathy [M47.81*07/09/2020 09/25/2020 Chronic mixed headache syndrome [G44.89] 10/31/2020 Obesity, Class I, BMI 30-34.9 [E66.811] 10/31/2020 Anxiety [F41.9] 10/31/2020 Cervical radiculopathy [M54.12] 04/03/2020 Depression with anxiety [F41.8] 04/08/2021 Adnexal mass [N94.89] 04/20/2021 Liver cyst [K76.89] 04/20/2021 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] 09/12/2022 Intramural and subserous leiomyoma of uterus [D*03/22/2024 Adenomyosis of the uterus [N80.03] 03/22/2024 Encounter Status:Closed by GABBY HUGHES on 06/27/24 Normal [facility] Carbon dioxide, total [Moles /volume] in Central venous bloodOrdered By: Alton Rodriguez on 06-27-2024 CO2 [Moles/Vol] 23.4 mmol/L 21.0-32.0 [facility] Chest PA and Lateralon 06-27 Chest PA and Lateral [facility] Imaging Services [address] [place] [address] [place] [address] Chest PA and Lateral MR#: [id number] Acct: [id number] Name: ITZEL SORIANO Rep #: [id number] : 1965 F 58 From: Nilda Burgess PCP: Dr. Lenny Dumas MD Status: [facility] ER Study: Chest PA and Lateral Date of Exam: 06/27/24 Exam# [id number] Ordering Dr: Alton Rodriguez DO PROCEDURE: CHEST PA AND LATERAL 06/27/2024 REASON FOR EXAM: CHEST PAIN TECHNIQUE: Frontal and lateral views of the chest. COMPARISON: None FINDINGS: Heart size and configuration are within normal limits. Pulmonary vasculature and hilar structures are unremarkable. Trachea is midline. Lungs are expanded and clear without evidence of atelectasis, kg, effusion or pneumonic infiltrate. Bony thorax is unremarkable. RAD/Chest PA and Lateral IMPRESSION: No acute cardiopulmonary process is identified radiographically. Reading Location: [id number] CC: Dr. Alton Rodriguez DO; Dr. Lenny Dumas MD Tray Checker: Signed Normal [facility] Chloride assayOrdered By: Driss Rodriguez on 06-27-2024 Chloride [Moles/Vol] 101 mmol/L 98-108 [facility] Emergency Department Summary on 06-27-[address] [facility] Medical Records Department [address] [place] [address] Emergency Department Summary 06/27/24 MR#: [id number] Acct: [id number] Name: ITZEL SORIANO Rep #: [id number] : 1965 58 From: Alton Rodriguez DO PCP: Dr. Lenny Dumas MD Status:DEP ER Location: ED HPI History of Present Illness Chief Complaint: Headache Informant: patient Onset/Context/Timing Onset: Weeks (2) Context: Gradual Timing: Continuous Location: Right side of head and neck Worsened by: Nothing Relieved by: Ice, heat, stretching Associated Symptoms/Injury Associated Symptoms: Positive for Nausea, Sinus Pressure and Tingling; Negative for Fever, Vomiting, Sore Throat, Numbness, Preceding Aura, Visual Changes, Blurred Vision, Photophobia or Visual Loss Injury - WINTER: Negative for Direct Trauma Narrative Narrative: Patient presents with a headache that has been constant for the past 2 weeks. Patient states it is worse on the right side of her head. Patient describes it as a pressure. Patient states she has been using ice and heat to the side of her neck. Patient states this has been helping somewhat. Patient states she has also been doing some stretching exercises on her neck which have been helping. Patient admits to some nausea but denies any vomiting. Patient denies any fevers or chills. Patient admits to some tingling over her left shoulder area and left upper chest. Patient denies any visual changes, photophobia, or scotoma. Patient states she does get some pain into her chest at times. [facility] Medical History Anxiety Depression Leaky heart valve GERD (gastroesophageal reflux disease) Osteopenia Headache, migraine History of breast lump Arthritis Aortic root dilatation Chest pain, unspecified Family history of Marfan syndrome Home Medications ???Medication ???Instructions ???Recorded ???Last Taken ???Type aspirin 81 mg tablet,delayed 81 mg PO QHS 01/09/19 06/26/24 His tory release losartan 100 mg tablet 100 mg PO DAILY #90 tabs 02/12/19 06/27/24 Rx alprazolam 0.25 mg tablet 0.125 - 0.25 mg PO DAILY PRN 06/27 Unknown History anxiety atenolol 25 mg tablet 25 mg PO QHS 06/27/24 06/26/24 His tory clobetasol 0.05 % topical ointment 1 applic topical DAILY PRN skin 06/27/24 Unknown History irritation hydrochlorothiazide 25 mg tablet 25 mg PO DAILY 06/27/24 06/27/24 H istory Allergy/AdvReac Type Severity Reaction Status Date / Time gabapentin Allergy Intermediate Other Verified 06/27/24 17:41 ciprofloxacin (From Cipro) Allergy Unknown unknown Verified 06/27/24 17:41 nitrofurantoin (From Allergy Unknown unknown Verified 06/27/24 17:41 Macrobid) sulfamethoxazole (From Allergy Unknown unknown Verified 06/27/24 17:41 Bactrim) trimethoprim (From Bactrim) Allergy Unknown unknown Verified 06/27/24 17:41 Sulfa (Sulfonamide Allergy Hives Verified 06/27/24 17:41 Antibiotics) Family History Father CAD (coronary artery disease) Mother , of AAA rupture CAD (coronary artery disease) S/P CABG (coronary artery bypass graft) H/O mitral valve replacement Cardiac pacemaker in situ Marfan's syndrome Brother Marfan's syndrome s/p aortic root replacement S/P aortic valve replacement reimplantation of coronary arteries Atrial fibrillation SVT (supraventricular tachycardia) Brother Marfan's syndrome S/P aortic valve replacement Aortic aneurysm and dissection dissection to iliac artery Abdominal aneurysm Other Anxiety Arthritis Cervical cancer Depression Diabetes High cholesterol Hypertension Parkinson disease Surgical History H/O laminectomy History of hernia repair ( 2013) Hx of artificial lens replacement Social History household members: spouse current occupational status: retired current occupation: [employer] Smoking Status: Former smoker quit date: 02/28/09 pack-years: 30 Electronic Cigarette Use: not used alcohol intake: current alcohol intake frequency: other details: rare, once a year substance use type: does not use what type of physical activity do you participate in: walking frequency: 1-2 times per week do you feel safe at home: Yes ROS ROS ED Constitutional Constitutional ED: Denies chills or fever(s) Eyes Eyes: Denies blurry vision or change in vision ENT ENT ED: Denies rhinorrhea or sore throat Cardiovascular Cardiovascular: Reports chest pain; Denies palpitations Respiratory/Chest Respiratory/Chest: Denies cough or dyspnea Gastrointestinal Gastrointestinal: Reports nausea; Denies vomiting Genitourin (more content not included)... Normal [facility] Eosinophil percentageOrdered By: Alton Rodriguez on 06-27-2024 Eosinophils/100 WBC (Bld) 3.6 % 0-5 [facility] Erythrocyte Sed Rateon 06-27 SED RATE 23 mm/hr Normal 0-30 [facility] Comment on above: Performed By: #### L 500.2500, L101.9900, L100.0100 ####[facility] [address] [place], [id number] Erythrocyte distribution wid th ratioOrdered By: Alton Rodriguez on 06-27-2024 Erythrocyte distribution width (RBC) [Ratio] 12.3 % 11.6-14.6 [facility] Erythrocyte distribution wid th standard deviationOrdered By: Alton Rodriguez on 06-27-2024 Erythrocyte distribution width (RBC) [Ratio] 37.4 fl 35.1-43.9 [facility] Erythrocyte sedimentation ra teOrdered By: Alton Rodriguez on 06-27-2024 ESR (Bld) [Velocity] 23 mm/h 0-30 [facility] Glomerular filtration rate ( GFR) estimation/1.73 sq m using serum, plasma, or whole bOrdered By: Alton Rodriguez on 06-27-2024 GFR/1.73 sq M.predicted among non-blacks MDRD (S/P/Bld) [Vol rate/Area] 96 mL/min/{1.73_m2} >60 [facility] Comment on above: mL/min/1.73m2 CKD-EP I Creatinine Equation (2020) Hematocrit Auto (Bld) [Volum e fraction]Ordered By: Altonflorence Rodriguez on 06-27-2024 Hematocrit (Bld) [Volume fraction] 37.2 % 37-47 [facility] Hemoglobin measurementOrdere d By: Alton Rodriguez on 06-27-2024 Hemoglobin (Bld) [Mass/Vol] 12.9 g/dL 12.0-15.0 [facility] Immature granulocytes/100 WB C Auto (Bld)Ordered By: Alton Rodriguez on 06-27-2024 Immature granulocytes/100 WBC (Bld) 0.200 % 0.0-0.9 [facility] Comment on above: IG% - Immature Granu locytes (promyelocytes, myelocytes and metamyelocytes) > 1% indicates that a LEFT SHIFT is Present. L499.0042on 06-27-2024 Trop T High Sen Normal <=14 [facility] Comment on above: Result Comment: PT D ISCHARGED Performed By: #### L 499.0042 #### [facility] Laboratory [address] [place], [address] L499.0043on 06-27-2024 Trop T High Sen Normal <=14 [facility] Comment on above: Result Comment: Canc elled via OM: Order cancelled - Patient discharged Performed By: #### L 499.0043 #### [facility] Laboratory [address] [place], [place], [id number] L501.4021on 06-27-2024 Trop T High Sen 7 ng/L Normal <=14 [facility] Comment on above: Performed By: #### L 501.4021 #### [facility] Laboratory [address] [place], [place], [address] MCV (mean corpuscular volume ) determinationOrdered By: Alton Rodriguez on 06-27-2024 MCV (RBC) [Entitic vol] 83.6 fL 81-99 [facility] Mean corpuscular hemoglobin (MCH) determinationOrdered By: Alton Rodriguez on 06-27-2024 MCH (RBC) [Entitic mass] 29.0 pg 27.0-32.0 [facility] Mean corpuscular hemoglobin concentration (MCHC) determinationOrdered By: Alton Rodriguez on 06-27-2024 MCHC (RBC) [Mass/Vol] 34.7 g/dL 32-36 [facility] Mean platelet volume determi nationOrdered By: Alton Rodriguez on 06-27-2024 Platelet mean volume (Bld) [Entitic vol] 10.5 fL 6.2-12.0 [facility] Monocyte percentageOrdered B y: Alton Rodriguez on 06-27-2024 Monocytes/100 WBC (Bld) 7.3 % 0-10 [facility] Neutrophil percentageOrdered By: Alton Rodriguez on 06-27-2024 Neutrophils/100 WBC (Bld) 46.4 % Low 47-70 [facility] Nucleated red blood cell per centageOrdered By: Alton Rodriguez on 06-27-2024 Nucleated RBC/100 WBC (Bld) [Ratio] 0 % 0-5 [facility] Platelet countOrdered By: Driss Rodriguez on 06-27-2024 Platelets (Bld) [#/Vol] 299 10*3/uL 150-450 [facility] Potassium measurement (mass/ volume)Ordered By: Alton Rodriguez on 06-27-2024 Potassium (Unsp spec) [Mass/Vol] 3.4 mmol/L 3.3-5.1 [facility] RBC Auto (Bld) [#/Vol]Ordere d By: Alton Rodriguez on 06-27-2024 RBC (Bld) [#/Vol] 4.45 10*6/uL 4.2-5.4 [facility] Serum creatinine measurement (mass/volume)Ordered By: Alton Rodriguez on 06-27-2024 Creatinine [Mass/Vol] 0.73 mg/dL 0.70-1.20 [facility] Serum glucose measurement (m ass/volume)Ordered By: Alton Rodriguez on 06-27-2024 Glucose [Mass/Vol] 93 mg/dL 70-99 [facility] Serum or plasma calcium kath urement (mass/volume)Ordered By: Alton Rodriguez on 06-27-2024 Calcium [Mass/Vol] 9.6 mg/dL 7.6-11.0 [facility] Serum or plasma urea nitroge n measurement (mass/volume)Ordered By: Alton Rodriguez on 06-27-2024 Urea nitrogen [Mass/Vol] 13 mg/dL 4-19 [facility] Sodium levelOrdered By: Alton Rodriguez on 06-27-2024 Sodium [Moles/Vol] 138 mmol/L 133-145 [facility] Troponin T.cardiac [Mass/vol ume] in Serum or Plasma by High sensitivity methodOrdered By: Alton Rodriguez on 06-27-2024 Troponin T.cardiac High sensitivity method [Mass/Vol] 7 ng/L <14 [facility] White blood cell (WBC) count Ordered By: Alton Rodriguez on 06-27-2024 WBC (Bld) [#/Vol] 8.6 10*3/uL 4.4-11.0 [facility] MUMPS IGG ABon 06-26-2024 MuV IgG Ql (S) Positive Positive [facility] Comment on above: The result suggests recent or past exposure to Mumps virus or Mumps vaccination. The current test does not detect neutralizing antibodies. Positive result may also be seen due to presence of passively-transferred antibodies. Please correlate with patient's history. MuV IgG Ql (S) Positive Normal Positive [facility] Comment on above: Order Comment: Speci gilberto Type: BLOOD SPECIMENOrdering Facility: [facility] Address: [address] [place] [address] Result Comment: The result suggests recent or past exposure to Mumps virus or Mumps vaccination. The current test does not detect neutralizing antibodies. Positive result may also be seen due to presence of passively-transferred antibodies. Please correlate with patient's history. Performed By: #### M UMPSG, RUBIGG, 7962-4 ####[facility] LABCLIA [id number] [place] [address] [place] MeV IgG Qn (S)on 06-26-2024 Measles Antibody, IGG Qualitative Positive Positive [facility] Comment on above: The result suggests recent or past exposure to Measles virus or Measles vaccination. The current test does not detect neutralizing antibodies. Positive result may also be seen due to presence of passively-transferred antibodies. Please correlate with patient's history. MEASLES IGG AB, QUAL Positive Normal Positive [facility] Comment on above: Order Comment: Pari macias Type: BLOOD SPECIMENOrdering Facility: [facility] Address: [address] [place] [address] Result Comment: The result suggests recent or past exposure to Measles virus or Measles vaccination. The current test does not detect neutralizing antibodies. Positive result may also be seen due to presence of passively-transferred antibodies. Please correlate with patient's history. Performed By: #### M UMPSG, RUBIGG, 7962-4 ####[facility] LABCLIA [id number] [place] [id number] [place] No Panel Informationon 06-26 Interpretation and review of laboratory results Normal [facility] RUBELLA IGG ANTIBODYon 06-26 Interpretation and review of laboratory results Normal [facility] Rubella IgG, Qual Positive Positive [facility] Comment on above: The result suggests recent or past exposure to Rubella virus or history of Rubella vaccination. Positive result may also be seen due to presence of passively-transferred antibodies. Please correlate with patient's history. [facility] RUBELLA IGG AB, QUAL Positive Normal Positive [facility] Comment on above: Order Comment: Speci men Type: BLOOD SPECIMENOrdering Facility: [facility] Address: [address] [place] [address] Result Comment: The result suggests recent or past exposure to Rubella virus or history of Rubella vaccination. Positive result may also be seen due to presence of passively-transferred antibodies. Please correlate with patient's history. Performed By: #### M UMPSG, RUBIGG, 7962-4 ####[facility] LABCLIA [id number] [address] OF [facility] 36on 06-25-2024 36 Left message with appointment reminder and instructed patient to bring any recent pertinent imaging on a disk for review. Normal [facility] CBC panel Auto (Bld)on 06-01 Erythrocyte distribution width (RBC) [Ratio] 12.3 % Normal 11.5-15.0 [facility] Comment on above: Order Comment: Liliami gilberto Type: BLOOD SPECIMENOrdering Facility: [facility] Address: [address] [place] [address] Performed By: #### 5 8410-2 ####[facility] [id number] [place] [address] [place] Hematocrit (Bld) [Volume fraction] 36.9 % Normal 36.0-46.0 [facility] Comment on above: Order Comment: Speci men Type: BLOOD SPECIMENOrdering Facility: [facility] Address: [address] [place] [address] Performed By: #### 5 8410-2 ####[facility] [id number] [place] [address] [place] Hemoglobin (Bld) [Mass/Vol] 12.5 g/dL Normal 11.5-15.5 [facility] Comment on above: Order Comment: Speci men Type: BLOOD SPECIMENOrdering Facility: [facility] Address: [address] [place] [address] Performed By: #### 5 8410-2 ####[facility] MEMECHICAGOSUNITA [id number] [address] MCH (RBC) [Entitic mass] 29.0 pg Normal 26.0-34.0 [facility] Comment on above: Order Comment: Speci men Type: BLOOD SPECIMENOrdering Facility: [facility] Address: [address] [place] [address] Performed By: #### 5 8410-2 ####[facility] [id number] [address] [place] MCHC (RBC) [Mass/Vol] 33.9 g/dL Normal 30.5-36.0 [facility] Comment on above: Order Comment: Speci men Type: BLOOD SPECIMENOrdering Facility: [facility] Address: [address] [place] [address] Performed By: #### 5 8410-2 ####[facility] MIRAMARNCA [id number] [address] [place] MCV (RBC) [Entitic vol] 85.6 fL Normal 80.0-100.0 [facility] Comment on above: Order Comment: Speci men Type: BLOOD SPECIMENOrdering Facility: [facility] Address: [address] [place] [address] Performed By: #### 5 8410-2 ####[facility] MIRAMARNCLIA [id number] [address] [place] Nucleated RBC (Bld) [#/Vol] 10*3/uL Normal <0.01 [facility] Comment on above: Order Comment: Speci men Type: BLOOD SPECIMENOrdering Facility: [facility] Address: [address] [place] [address] Performed By: #### 5 8410-2 ####[facility] MILLWNCLIA [id number] [place] [address] [place] Platelet mean volume (Bld) [Entitic vol] 10.3 fL Normal 9.0-12.7 [facility] Comment on above: Order Comment: Speci men Type: BLOOD SPECIMENOrdering Facility: [facility] Address: [address] [place] [address] Performed By: #### 5 8410-2 ####[facility]ENTER[facility] [id number] [place] [address] [place] Platelets (Bld) [#/Vol] 261 10*3/uL Normal 150-400 [facility] Comment on above: Order Comment: Speci men Type: BLOOD SPECIMENOrdering Facility: [facility] Address: [address] [place] [address] Performed By: #### 5 8410-2 ####[facility]ENTERLIA [id number] [place] [address] [place] RBC (Bld) [#/Vol] 4.31 10*6/uL Normal 3.90-5.20 [facility] Comment on above: Order Comment: Speci men Type: BLOOD SPECIMENOrdering Facility: [facility] Address: [address] [place] [address] Performed By: #### 5 8410-2 ####[facility]ENTERLIA [id number] [place] [address] [place] WBC (Bld) [#/Vol] 7.19 10*3/uL Normal 3.70-11.00 [facility] Comment on above: Order Comment: Speci men Type: BLOOD SPECIMENOrdering Facility: [facility] Address: [address] [place] [address] Performed By: #### 5 8410-2 ####[facility]ENTERLIA [id number] [place] [address] [place] Comprehensive metabolic 2000 panelon 06-01-2024 Albumin [Mass/Vol] 4.2 g/dL Normal 3.9-4.9 [facility] Comment on above: Order Comment: Speci men Type: BLOOD SPECIMENOrdering Facility: [facility] Address: [address] [place] [address] Performed By: #### 2 4323-8 ####[facility] MILLTOWNCLIA [id number] [place] [address] [place] ALP [Catalytic activity/Vol] 117 U/L Normal 34-123 [facility] Comment on above: Order Comment: Speci men Type: BLOOD SPECIMENOrdering Facility: [facility] Address: [address] [place] [address] Performed By: #### 2 4323-8 ####[facility] MILLWNCLIA [id number] [place] [address] [place] ALT [Catalytic activity/Vol] 15 U/L Normal 7-38 [facility] Comment on above: Order Comment: Speci men Type: BLOOD SPECIMENOrdering Facility: [facility] Address: [address] [place] [address] Performed By: #### 2 4323-8 ####[facility] ERWNCLIA [id number] [place] [address] [place] Anion gap [Moles/Vol] 11 mmol/L Normal 8-15 [facility] Comment on above: Order Comment: Speci men Type: BLOOD SPECIMENOrdering Facility: [facility] Address: [address] [place] [address] Performed By: #### 2 4323-8 ####[facility] MILLTOWNCLIA [id number] [place] [address] [place] AST [Catalytic activity/Vol] 15 U/L Normal 13-35 [facility] Comment on above: Order Comment: Speci men Type: BLOOD SPECIMENOrdering Facility: [facility] Address: [address] [place] [address] Performed By: #### 2 4323-8 ####[facility] JOANNEDANYELLA [id number] [place] [address] [place] Bilirubin [Mass/Vol] 0.2 mg/dL Normal 0.2-1.3 [facility] Comment on above: Order Comment: Speci men Type: BLOOD SPECIMENOrdering Facility: [facility] Address: [address] [place] [address] Performed By: #### 2 4323-8 ####[facility] ERROMARIOA [id number] [place] [address] [place] Calcium [Mass/Vol] 9.1 mg/dL Normal 8.5-10.2 [facility] Comment on above: Order Comment: Speci men Type: BLOOD SPECIMENOrdering Facility: [facility] Address: [address] [place] [address] Performed By: #### 2 4323-8 ####[facility] MIRAMARDANYELLA [id number] [place] [address] [place] Chloride [Moles/Vol] 98 mmol/L Normal 98-107 [facility] Comment on above: Order Comment: Speci men Type: BLOOD SPECIMENOrdering Facility: [facility] Address: [address] [place] [address] Performed By: #### 2 4323-8 ####[facility] MIRAMARNCLIA [id number] [place] [address] [place] CO2 [Moles/Vol] 27 mmol/L Normal 22-30 [facility] Comment on above: Order Comment: Speci men Type: BLOOD SPECIMENOrdering Facility: [facility] Address: [address] [place] [address] Performed By: #### 2 4323-8 ####[facility] MIRAMARNCLI [id number] [place] [address] [place] Creatinine [Mass/Vol] 0.68 mg/dL Normal 0.58-0.96 [facility] Comment on above: Order Comment: Speci men Type: BLOOD SPECIMENOrdering Facility: [facility] Address: [address] [place] [address] Performed By: #### 2 4323-8 ####[facility] [id number] [place] [address] [place] Creatinine and Glomerular filtration rate.predicted panel (S/P/Bld) 102 mL/min/1.73m??? Normal >=60 [facility] Comment on above: Order Comment: [facility]am[facility] Type: BLOOD SPECIMENOrdering Facility: [facility] Address: [address] [place] [address] Result Comment: Lynette mated Glomerular Filtration Rate (eGFR) is calculated using the 2020 CKD-EPI creatinine equation. This equation utilizes serum creatinine, sex, and age as parameters. The creatinine assay has traceable calibration to isotope dilution-mass spectrometry. Refer to KDIGO guidelines for clinical interpretation. In patients with unstable renal function, e.g. those with acute kidney injury, the eGFR may not accurately reflect actual GFR. Performed By: #### 2 4323-8 ####[facility] [id number] [place] [address] [place] Glucose [Mass/Vol] 112 mg/dL High 74-99 [facility] Comment on above: Order Comment: Speci men Type: BLOOD SPECIMENOrdering Facility: [facility] Address: [address] [place] [address] Result Comment: The [place] Diabetes Association (ADA) provides guidance for cutoff values for fasting glucose and random glucose. The ADA defines fasting as no caloric intake for at least 8 hours. Fasting plasma glucose results between 100 to 125 mg/dL indicate increased risk for diabetes (prediabetes). Fasting plasma glucose results greater than or equal to 126 mg/dL meet the criteria for diagnosis of diabetes. In the absence of unequivocal hyperglycemia, results should be confirmed by repeat testing. In a patient with classic symptoms of hyperglycemia or hyperglycemic crisis, random plasma glucose results greater than or equal to 200 mg/dL meet the criteria for diagnosis of diabetes. Reference: Standards of Medical Care in Diabetes 2016, [place] [employer] Association. Diabetes Care. 2016.39(Suppl 1). Performed By: #### 2 4323-8 ####[facility] MILLTOWNCLIA [id number] [place] [address] [place] Potassium [Moles/Vol] 3.7 mmol/L Normal 3.7-5.1 [facility] Comment on above: Order Comment: Speci men Type: BLOOD SPECIMENOrdering Facility: [facility] Address: [address] [place] [address] Performed By: #### 2 4323-8 ####[facility] ERWORLIA [id number] [place] [address] [place] Protein [Mass/Vol] 6.8 g/dL Normal 6.3-8.0 [facility] Comment on above: Order Comment: Speci men Type: BLOOD SPECIMENOrdering Facility: [facility] Address: [address] [place], [place] [address] Performed By: #### 2 4323-8 ####[facility] ERWNCLIA [id number] [place] [address] [place] Sodium [Moles/Vol] 136 mmol/L Normal 136-144 [facility] Comment on above: Order Comment: Speci men Type: BLOOD SPECIMENOrdering Facility: [facility] Address: [address] [place], [place] [address] Performed By: #### 2 4323-8 ####[facility] MILLTOWNCLIA [id number] [place] [address] [place] Urea nitrogen [Mass/Vol] 15 mg/dL Normal 7-21 [facility] Comment on above: Order Comment: Speci men Type: BLOOD SPECIMENOrdering Facility: [facility] Address: [address] [place] [address] Performed By: #### 2 4323-8 ####[facility] [id number] [place] [address] [place] Lipid 1996 panelon 5 Cholesterol [Mass/Vol] 227 mg/dL High <200 [facility] Comment on above: Order Comment: Speci men Type: BLOOD SPECIMENOrdering Facility: [facility] Address: [address] [place] [address] Result Comment: <200 mg/dL, Desirable 200-239 mg/dL, Borderline high >239 mg/dL, High Performed By: #### 2 4331-1 ####[facility] LABCLIA [id number] [address] STATES [facility] [id number] [address] [place] Cholesterol in HDL [Mass/Vol] 59 mg/dL Normal >39 [facility] Comment on above: Order Comment: Speci men Type: BLOOD SPECIMENOrdering Facility: [facility] Address: [address] [place] [address] Result Comment: 40-5 9 mg/dL, Acceptable >59 mg/dL, High: Negative risk factor for coronary heart disease <40 mg/dL, Low: Positive risk factor for coronary heart disease Performed By: #### 2 4331-1 ####[facility] LABCLIA [id number] [address] [id number] [address] [place] Cholesterol in LDL [Mass/Vol] 151 mg/dL High <100 [facility] Comment on above: Order Comment: Speci men Type: BLOOD SPECIMENOrdering Facility: [facility] Address: [address] [place] [address] Result Comment: <100 mg/dL, Optimal 100-129 mg/dL, Near optimal/above optimal 130-159 mg/dL, Borderline high 160-189 mg/dL, High >189 mg/dL, Very high Secondary prevention optimal LDL Cholesterol levels are recommended to be < 70 mg/dL Performed By: #### 2 4331-1 ####[facility] LABIA [id number] [address] [id number] [place] [address] [place] Cholesterol in LDL/Cholesterol in HDL [Mass ratio] 2.56 {ratio} High <2.54 [facility] Comment on above: Order Comment: Speci men Type: BLOOD SPECIMENOrdering Facility: [facility] Address: [address] [place] [address] Result Comment: Refe rence: 1. National Cholesterol Education Program ATP III Guideline At-A-Glance Quick Desk Reference: National Heart, Lung, and Blood [place]. National Institutes of Health. 2001: NIH Publication No. 01-3305. 2. An International Atherosclerosis Society position paper: global recommendations for the management of dyslipidemia: executive summary, Atherosclerosis. 2014: 232(2):410-413. Performed By: #### 2 4331-1 ####[facility] LABIA [id number] [address] [id number] [place] [address] [place] Cholesterol in VLDL [Mass/Vol] 17 mg/dL Normal <30 [facility] Comment on above: Order Comment: Speci men Type: BLOOD SPECIMENOrdering Facility: [facility] Address: [address] [place] [address] Performed By: #### 2 4331-1 ####[facility] LABIA [id number] [place] AVENUEDESK [id number] [id number] [address] STATES OF [facility] Cholesterol non HDL [Mass/Vol] 168 mg/dL High <130 [facility] Comment on above: Order Comment: Speci men Type: BLOOD SPECIMENOrdering Facility: [facility] Address: [address] [place] [address] Result Comment: <130 mg/dL, Optimal 130-159 mg/dL, Near optimal/above optimal 160-189 mg/dL, Borderline high 190-219 mg/dL, High >219 mg/dL, Very high Secondary prevention optimal non HDL Cholesterol levels are recommended to be <100 mg/dL Performed By: #### 2 4331-1 ####[facility] LABCLIA [id number] [address] [id number] [address] Cholesterol.total/Cinthia sterol in HDL [Mass ratio] 3.85 {ratio} Normal <5.10 [facility] Comment on above: Order Comment: Speci men Type: BLOOD SPECIMENOrdering Facility: [facility] Address: [address] [place] [address] Performed By: #### 2 4331-1 ####[facility] LABCLIA [id number] [address] [id number] [address] FASTING TIME 12 hrs Normal [facility] Comment on above: Order Comment: Speci men Type: BLOOD SPECIMENOrdering Facility: [facility] Address: [address] [place] [address] Performed By: #### 2 4331-1 ####[facility] LABCLIA [id number] [address] [id number] [address] [place] OF [place] Triglyceride [Mass/Vol] 84 mg/dL Normal <150 [facility] Comment on above: Order Comment: Speci men Type: BLOOD SPECIMENOrdering Facility: [facility] Address: [address] [place] [address] Result Comment: <150 mg/dL, Normal 150-199 mg/dL, Borderline high 200-499 mg/dL, High >499 mg/dL, Very high Performed By: #### 2 4331-1 ####[facility] LABCLIA [id number] [address] STATES OF [facility] [id number] [address] CNOVon 05-29-2024 CNOV Office Visit (INTMWS ) ITZEL SORIANO ([id number]) 1965 F Date Time Provider Department 05/29/24 6:00 PM LENNY DUMAS INTMWS During your visit today, we recorded the following information about you: Temperature Pulse Respiration Blood pressure 99 degrees 97/minute 12/minute 124/76 Weight Height Last Period 95.3 kg 1.702 m 05/18/24 Lenny Dumas MD 06/14/2024 11:24 AM Addendum This note was created using Weekend-a-gogoriter. Subjective Itzel Soriano is a 58 year old female. Patient presents with: Same Day Appointment: elevated blood pressures, c/o SOB,dizzy, elevated heart rate, patient spoke with cardiology started on new med HCTZ SUBJECTIVE: Itzel Soriano is a 58 year old year old lady here today for follow up appointment for review of medical conditions. Itzel is a 58-year-old female with a history of Marfan syndrome, presenting with elevated blood pressure readings and associated symptoms. Itzel reports a sudden onset of elevated blood pressure readings beginning last Tuesday at 1345, accompanied by chest pressure, dizziness, and nausea. She describes the chest pressure as feeling like she was going to explode and has also experienced sensations of someone grabbing my heart, just squeezing it. She denies any specific triggers for these episodes. Home blood pressure readings have been variable, with systolic readings ranging from 102 to 140 mmHg and diastolic readings from 67 to 90 mmHg. She notes that her pulse has been consistently elevated, ranging from 95 to 98 bpm, even when her blood pressure is lower (e.g., 117/67 mmHg). She has also recorded a pulse as low as 59 bpm during periods of higher blood pressure. She has been taking losartan 100 mg daily and recently started hydrochlorothiazide on Tuesday, which she believes is beginning to help stabilize her blood pressure. She denies any specific dietary triggers but mentions consuming a small bag of chips today without a significant increase in blood pressure. Itzel has a history of anxiety and was previously prescribed buspirone by Dr. Larsen, which she has not taken. She has been practicing visualization and breathing exercises (inhaling for 4 seconds, exhaling for 8 seconds) to manage her anxiety. She expresses a desire for a medication like Xanax for acute anxiety episodes but has not been prescribed it. She also reports a history of severe cervical pain in 2019, which rendered her unable to move her arm for 8 months due to excruciating pain. She has been performing physical therapy exercises at home and is scheduled to see a career information specialist. She experiences numbness and tingling in her arm when taking blood pressure readings, which she attributes to her previous cervical issues. Itzel has been sleeping upright in a chair since last Tuesday, noting that it feels more comfortable than lying flat in bed without a pillow. She reports episodes of loud snoring that wake her up, occurring three nights in a row, and experiences daytime sleepiness but tries to stay awake. She denies taking naps, preferring to go to bed early and wake up early. She is considering a sleep study to evaluate for sleep apnea. She has scheduled a blood flow screening and a first-time appointment with a neuro-engineering technician parking to evaluate new-onset headaches. She is also making dietary changes to improve her health, noting a fluctuating weight and a BMI of 32.91. PAST MEDICAL HISTORY Diagnosis Date - Aortic root dilation 4.1 cm - Cervical radiculopathy 04/03/2020 - Cervical spondylosis without myelopathy 04/03/2020 - Chronic mixed headache syndrome 10/31/2020 - Coitus painful for female - Endometriosis - Family history of Marfan syndrome - H/O alopecia areata - Infertility, female - LIPOMA OTHER SKIN AND SUBCUTANEOUS(Left back) 01/20/2005 - Major depressive disorder, single episode, mild 2007 - Marfan's syndrome (HCC) Lens dislocation and aortic root dilation - Ovarian cyst - Uterine fibroid Current Outpatient Medications Medication Sig - hydroCHLOROthiazide 25 mg tablet Take 1 tablet by mouth once daily. - losartan (COZAAR) 100 mg tablet Take 1 tablet by mouth once daily. - atenolol (TENORMIN) 25 mg tablet Take 1 tablet by mouth once daily. - omeprazole (PRILOSEC) 20 mg capsule Take 1 capsule by mouth daily before breakfast. 1/2 hr before meal. - mupirocin (BACTROBAN) 2 % ointment Apply to affected area three times daily. Treat for 10 days or as directed. Apply intranasal - calcium Carbonate 300 mg, 750mg, (TUMS) 300 mg (750 mg) chewable tablet Take by mouth as needed. (Patient not taking: Reported on 01/02/2024) - vitamin B complex (B COMPLEX 1 ORAL) Take 1 capsule by mouth every Tuesday and Tuesday. - cholecalciferol, vitamin D3, (VITAMIN D3 ORAL) Take 10,000 Units by mouth. Twice a week - calcium carb/ (more content not included)... Normal [facility] CNOVon 05-11-2024 CNOV Office Visit (OBGYWM ) ITZEL SORIANO ([id number]) 1965 F Date Time Provider Department 05/11/24 1:40 PM KONSTANTIN RIVER OBGYWJose Angel During your visit today, we recorded the following information about you: Blood pressure Weight Height Last Period 124/82 94.8 kg 1.702 m 04/16/24 Konstantin River MD 05/11/2024 3:37 PM Signed Voting Machine Repairer offered: Patient declinesAnup Robbins is a 58 year old who presents for an annual gynecologic exam without complaints. Postmenopausal: No Regular menstrual cycles q 28 days with 6-7 days of heavier bleeding HRT use: No. Still get period: Yes Bleeding amount bothersome: Yes Bleeding between periods: No Period symptoms: Breast tenderness; Cramps; Mood change; Pelvic pain Menopause symptoms: Hot flashes control frequency: Never HPV vaccine: Unsure; Last pap smear: 2023 History of abnormal pap: No Bothersome pelvic pain: Yes Last mammogram: today OB History Gravida0 Para0 Term0 Preterm0 AB0 Living0 SAB0 IAB0 Ectopic0 Multiple0 Live Births0 Quality Rep History LMP: 04/16/2024, Having periods Age at Menarche: 14 Age at First : Age at Menopause: Quality Rep History Comments: Sexual Activity: Not Currently; Male; Jail female infertility Contraception: None Menstrual Tracking History Flowsheet Row Office Visit from 05/11/2024 in OB/Gynecology Period Cycle (Days) 28 Period Duration (Days) 6 Menstrual Flow Heavy PAST MEDICAL HISTORY Diagnosis Date Aortic root dilation (HCC) 4.1 cm Cervical radiculopathy 04/03/2020 Cervical spondylosis without myelopathy 04/03/2020 Chronic mixed headache syndrome 10/31/2020 Coitus painful for female Endometriosis Family history of Marfan syndrome H/O alopecia areata Infertility, female LIPOMA OTHER SKIN AND SUBCUTANEOUS(Left back) 01/20/2005 Major depressive disorder, single episode, mild (HCC) 2006 Marfan's syndrome Lens dislocation and aortic root dilation Ovarian cyst Uterine fibroid PAST SURGICAL HISTORY Procedure Laterality Date CATARACT SURGERY, COMPLEX Right 05/15/1992 CLEAR LENSECTOMY Left 03/24/2001 Left Lensectomy and anterior Chamber IOL Placement- Performed by Dr. Roberto Lucero CLEAR LENSECTOMY Right 09/19/2013 Lensectomy with Anterior Chamber IOL Placement- Performed by Dr. Jomar Lucero COLONOSCOPY SCREENING 01/16/2019 [facility]. Negative. Repeat 10 years. EXCISION TUMOR SOFT TISSUE BACK/FLANK SUBQ <3CM 01/27/2007 left scapular FNA WITH IMAGING Left 01/10/2015 U/S FNA left breast 3 Oclock LAPS ABD PRTMANDOMENTUM DX W/WO SPEC BR/WA SPX 1981 Laparoscopy LASER IRIDOTOMY,IRIDECTOMY, ONE EYE Right 05/16/1992 LASER IRIDOTOMY,IRIDECTOMY, ONE EYE Left 03/24/2001 RMVL SEC MEMBRANOUS CTRC CORNEO-SCLL SCTJ Bilateral Insert lens prosthesis RPR 1ST INGUN HRNA AGE 5 YRS/> REDUCIBLE 1996 Hernia repair, inguinal FAMILY HISTORY Problem Relation Age of Onset Heart Mother Aortic disection (Marfan's syndrome) Lipids Mother other (Marfans) Mother Heart Father CAD and Heart failure Lipids Father Hypertension Father Heart Sister Cataract Sister Detached Retina Sister Cataract Sister Cataract Sister Blindness Sister other (Marfan's ) Sister Cataract Brother other (Aortic dissection) Brother Cataract Brother other (Aortic aneurysms) Brother Breast Cancer Paternal Grandmother BREAST Diabetes Paternal Grandmother SOCIAL HISTORY Social History Tobacco Use Smoking status: Former Current packs/day: 0.00 Average packs/day: 1 pack/day for 31.0 years (31.0 ttl pk-yrs) Types: Cigarettes Start date: 02/29/1980 Quit date: 02/28/2011 Years since quittin.2 Smokeless tobacco: Never Vaping Use Vaping status: Never Used Substance Use Topics Alcohol use: No Drug use: No REVIEW OF SYSTEMS Abdomen: No abdominal pain, nausea, vomiting, diarrhea, or constipation. No bloating, early satiety, indigestion, or increased flatulence. Bladder: No dysuria, gross hematuria, urinary frequency, urinary urgency, or incontinence Breast: No breast lumps, nipple d/c, overlying skin changes, redness or skin retraction Allergies and current medication updated:Yes SENSITIVE EXAM: The sensitive examination was discussed with the Patient or Patient's Authorized Business Applications Analyst. As applicable, any other physician, advance practice provider, medical student, or other health professional student that will be observing or involved in the sensitive examination for educational or training purposes was discussed with the Patient or Authorized Business Applications Analyst. The Patient or Authorized Business Applications Analyst has agreed to proceed with the sensitive examination. (Sensitive examination includes inspection and/or palpation of the breasts, pelvis, prostate and anorectal regions). EXAM: BP 124/82 Ht 5' 7 (1.70m) Wt 209 lb (94.8kg) LMP 04/16/2024 BMI 32.73 (more content not included)... Normal [facility] CARLOS ENRIQUE SCREENING W TOMOon 05-11 CARLOS ENRIQUE SCREENING W REUBEN * * *Final Report* * * DATE OF EXAM: May 11 2024 1:15PM [id number] - CARLOS ENRIQUE SCREENING W REUBEN / PROCEDURE REASON: multiple diagnoses * * * * Physician Interpretation * * * * RESULT: [facility] [address] [place] [address] #[id number] - CARLOS ENRIQUE SCREENING W REUBEN HISTORY: 58 year-old patient seen for screening. Patient is asymptomatic in both breasts. Patient states no personal history of breast cancer. COMPARISON STUDIES: The present examination has been compared to prior imaging studies dated 07/07/2020 (mammogram) and 04/07/2023 (mammogram). MAMMOGRAM TECHNIQUE: The study was acquired using full field digital technology and interpreted from soft copy. Digital Breast Tomosynthesis (DBT) images were obtained and used to assist in the interpretation of this examination. MAMMOGRAM FINDINGS: The breasts are heterogeneously dense, which may obscure small masses. No suspicious masses, calcifications or other abnormalities are seen in either breast. There are no significant interval changes. IMPRESSION: There is no mammographic evidence of malignancy in either breast. Routine screening mammogram is recommended. Annual mammogram will be due in 1 year. BI-RADS Category 1: Negative RISK: Based on the Tyrer-Cuzick (TC) risk assessment model, this patient has a 10.8% lifetime risk of developing breast cancer, meaning they are at average risk for developing breast cancer. However, this is only an estimate based on available history provided on the patient's questionnaire. We encourage all patients to talk with their providers about these results, further recommendations for managing breast health, and appropriate supplemental screening options if the patient has dense breast tissue. Interpreting Radiologist: Dorian Trammell M.D. Electronically signed on: 05/12/2024 Tray Checker: BRYAN Transcribe Date/Time: May 11 2024 1:03P Dictated by: DORIAN TRAMMELL MD This examination was interpreted and the report reviewed and electronically signed by: DORIAN TRAMMELL MD on May 12 2024 7:35PM EST [id number] Normal [facility] US Pelvison 03-22-2024 Indication adnexal cyst Impression The contour of the uterus and the endometrial cavity were evaluated with 3-D imaging. Findings are suggestive of arcuate uterus. The uterus is anteverted and measures 76 mm x 34 mm x 47 mm. The myometrium is heterogeneous, echogenic suggestive of adenomyosis. In addition, three fibroids are observed and are described below. The endometrial thickness is 2.4 mm. 1. Right lateral posterior wall subserous fibroid measures 8 mm x 6 mm x 9 mm. 2. Left lateral posterior wall subserous fibroid measures 10 mm x 8 mm x 10 mm. 3. Left lateral anterior wall intramural fibroid measures 7 mm x 5 mm x 6 mm. The right ovary measures 19 mm x 23 mm x 16 mm. The left ovary measures 20 mm x 21 mm x 17 mm. There is no free fluid visualized. Technique: Three dimensional imaging was created on a dedicated stand-alone 3D workstation with images created and archived, and supervised and reviewed by the interpreting physician utilizing images from a US Scan performed on 03/22/24. Recommendations Fibroid uterus. Clinical correlation is recommended. Ultrasound findings suggestive for adenomyosis. Clinical correlation is recommended. Menstrual History LMP on 02/12/2024 Method Transabdominal, transvaginal, 3D ultrasound examination, Color Doppler examination. View: Adequate visualization Uterus Uterus: Visualized Uterus position: anteverted Description of uterine malformations: arcuate Myometrium: heterogeneous, echogenic Endometrium: normal Cervix details: normal Uterus length 76 mm Uterus width 47 mm Uterus height 34 mm Uterus Vol 62.9 cm Endometrial thickness, total 2.4 mm Fibroids: Fibroids identified Uterine fibroid D1 8 mm Uterine fibroid D2 6 mm Uterine fibroid D3 9 mm Uterine fibroid mean 7.4 mm Uterine fibroid vol 0.201 cm Uterine fibroids findings: Right lateral posterior wall. Subserous Uterine fibroid D1 10 mm Uterine fibroid D2 8 mm Uterine fibroid D3 10 mm Uterine fibroid mean 9.2 mm Uterine fibroid vol 0.397 cm Uterine fibroids findings: Left lateral posterior wall. Subserous Uterine fibroid D1 7 mm Uterine fibroid D2 5 mm Uterine fibroid D3 6 mm Uterine fibroid mean 5.7 mm Uterine fibroid vol 0.093 cm Uterine fibroids findings: Left lateral anterior wall. intramural Polyps: No polyps identified Right Ovary Rt ovary: Visualized Rt ovary morphology: premenopausal normal follicular Rt ovary D1 19 mm Rt ovary D2 23 mm Rt ovary D3 16 mm Rt ovary Vol 3.5 cm Rt ovarian cyst(s): No cysts identified Left Ovary Lt ovary: Visualized Lt ovary morphology: premenopausal with dominant follicle Lt ovary D1 20 mm Lt ovary D2 21 mm Lt ovary D3 17 mm Lt ovary Vol 3.8 cm Lt ovarian cyst(s): No cysts identified Lt ovarian follicle(s): Follicles identified Cul de Sac Visualized. no free fluid visualized Procedure To characterize the arcuate uterus, three dimensional imaging was created on a dedicated stand-alone 3D workstation with images created and archived, and supervised and reviewed by the interpreting physician utilizing images from an ultrasound scan performed today. Performed By: Wanda Brandt RDMS Read By: Jovita Chavez M.D. MATERNAL MEDICINE [facility] Radiology Study observation (narrative) [facility] CNOVon 03-12-2024 CNOV Office Visit (INTMWS ) ITZEL SORIANO ([id number]) 1965 F Date Time Provider Department 03/12/24 9:40 AM AMEENA LARSEN INTMWS During your visit today, we recorded the following information about you: Pulse Respiration Blood pressure Weight 70/minute 16/minute 105/68 92.1 kg Last Period 02/12/24 Ameena Larsen MD 03/12/2024 6:11 PM Signed Reason for Visit Patient presents with: Recheck: BP and pulse Itzel Soriano is a 58 year old female who presents here today for Above Complaints.. Health Maintenance Lung Cancer Screening Pneumococcal Vaccine: 50+(1 of 1 - PCV) Influenza Vaccine(1) Covid-19 Vaccine( season) Mammogram Screening HPI This is a very pleasant 58-year-old woman with a past medical history of cervical radiculopathy Marfan syndrome which is a recent diagnosis, aortic root dilatation has been seen, adnexal mass, depression with anxiety, morbid major depression, obesity. Over the past couple weeks she felt that her blood pressure has been mildly on the elevated side especially with diastolic. She reports not feeling herself but no severe symptoms and did not like to be evaluated. She denies shortness of breath or chest pain. Reports taking potassium once several supplements a day because she was getting leg cramps after exercising. Notes that her bp is normal in the day time, abbi when she wakes up it is around 120/72 and sometimes it is around 127/80, at the end of the day it goes up to 140/92.. she does feel different at that time, feels more issues in her neck and the spine. she denies, sob, blurring of vision, chest pain,in the evening when bp is elevated, , she stopped the cymbalta as it was not effective for her. She is very stressed during the evening, going through some grief with husbands 6 months ago. Notes area of alopecia on the scalp and would like to have it treated. She appeared very anxious today and as open to taking a medication No problem-specific Assessment AND Plan notes found for this encounter. PAST MEDICAL HISTORY Diagnosis Date Aortic root dilation (HCC) 4.1 cm Cervical radiculopathy 04/03/2020 Cervical spondylosis without myelopathy 04/03/2020 Chronic mixed headache syndrome 10/31/2020 Family history of Marfan syndrome H/O alopecia areata LIPOMA OTHER SKIN AND SUBCUTANEOUS(Left back) 01/20/2005 Major depressive disorder, single episode, mild (HCC) 2006 Marfan's syndrome Lens dislocation and aortic root dilation PAST SURGICAL HISTORY Procedure Laterality Date CATARACT SURGERY, COMPLEX Right 05/15/1992 CLEAR LENSECTOMY Left 03/24/2001 Left Lensectomy and anterior Chamber IOL Placement- Performed by Dr. Roberto Lucero CLEAR LENSECTOMY Right 09/19/2013 Lensectomy with Anterior Chamber IOL Placement- Performed by Dr. Jomar Lucero COLONOSCOPY SCREENING 01/16/2019 [facility]. Negative. Repeat 10 years. EXCISION TUMOR SOFT TISSUE BACK/FLANK SUBQ <3CM 01/27/2007 left scapular FNA WITH IMAGING Left 01/10/2015 U/S FNA left breast 3 Oclock LAPS ABD PRTMANDOMENTUM DX W/WO SPEC BR/WA SPX 1981 Laparoscopy LASER IRIDOTOMY,IRIDECTOMY, ONE EYE Right 05/16/1992 LASER IRIDOTOMY,IRIDECTOMY, ONE EYE Left 03/24/2001 RMVL SEC MEMBRANOUS CTRC CORNEO-SCLL SCTJ Bilateral Insert lens prosthesis RPR 1ST INGUN HRNA AGE 5 YRS/> REDUCIBLE 1996 Hernia repair, inguinal FAMILY HISTORY Problem Relation Age of Onset Heart Mother Aortic disection (Marfan's syndrome) Lipids Mother other (Marfans) Mother Heart Father CAD and Heart failure Lipids Father Hypertension Father Heart Sister Cataract Sister Detached Retina Sister Cataract Sister Cataract Sister Blindness Sister other (Marfan's ) Sister Cataract Brother other (Aortic dissection) Brother Cataract Brother other (Aortic aneurysms) Brother Breast Cancer Paternal Grandmother BREAST Diabetes Paternal Grandmother Social History Tobacco Use Smoking status: Former Current packs/day: 0.00 Average packs/day: 1 pack/day for 31.0 years (31.0 ttl pk-yrs) Types: Cigarettes Start date: 02/29/1980 Quit date: 02/28/2011 Years since quittin.0 Smokeless tobacco: Never Vaping Use Vaping status: Never Used Substance Use Topics Alcohol use: No Drug use: No Past medical history, appointments, medications, allergies reviewed. Pertinent Lab/Diagnostic Studies are reviewed and discussed today Current Outpatient Medications: losartan (COZAAR) 100 mg tablet atenolol (TENORMIN) 25 mg tablet omeprazole (PRILOSEC) 20 mg capsule mupirocin (BACTROBAN) 2 % ointment vitamin B complex (B COMPLEX 1 ORAL) cholecalciferol, vitamin D3, (VITAMIN D3 ORAL) calcium carb/D3/magnesium/zinc (CALCIUM CARB-D3-MAG OX-ZINC OX ORAL) Ascorbic Acid (VITAMIN C) 1,000 mg tablet Zinc Acetate, Oral, 50 mg (zinc) cap lysine 500 mg tab aspirin, enteric (more content not included)... Normal [facility] Echo 03-12-2024 ZOIEN Telephone (INTMWS) ITZEL SORIANO ([id number]) 1965 F Date Time Provider Department 03/12/24 LENNY DUMAS During your visit today, we recorded the following information about you: Tawnya Nogueira RN 03/12/2024 8:53 AM Signed Patient calling in to request appointment. Pt states she has been having increases in her BP and pulse since last Tuesday or Tuesday. Reports diagnosis of anxiety and Marfan's Syndrome. States not feeling herself but no severe sx's. Pt would like evaluation. BP examples over this past week: 128/92, 132/93. States higher diastolics for her. Takes losartan every morning and atenolol every evening. During call BP 119/84 and Pulse 71 using home BP machine. No SOB or chest pain now. States at times has gotten 3-4 out of 10 chest pressure over the last several months. Reports took potassium supplements for a few days last week because she was getting leg cramping after exercising. She has stopped taking them. States she received pneumonia vaccine this past Tuesday and thinks maybe this has contributed to her not feeling herself, as well. Reports history of self-stopping her Cymbalta late December or January and experienced bad side effects from that but restarted it. States she feels her C6-C7 issues contribute as well. Pt requesting to see physician today. No appts available with Dr. Dumas today. Pt requested to see Dr. Larsen this morning. Appt made. Tawnya Nogueira RN Allergies As of Date: 03/12/2024 Noted Allergy Reaction BACLOFEN 11/30/2019 8 - GI Upset CIPRO (CIPROFLOXACIN) 01/03/2007 4 - Hives 7 - Swelling GABAPENTIN 11/30/2019 5 - Intolerance MACROBID (NITROFURANTOIN MONOHYD/*01/03/2007 4 - Hives 7 - Swelling SULFA (SULFONAMIDE ANTIBIOTICS) 01/20/2005 4 - Hives 7 - Swelling TRAMADOL 12/13/2019 14 - Other: See Comments Comments: when taken with Baclofen Date Reviewed: 01/02/2024 Reviewed by: Nohemy Davis APRN.NEEDLE LOOM WEAVER - Fully Assessed Reason for Visit: Patient Update [1234] Prescriptions as of 03/12/2024 - losartan (COZAAR) 100 mg tablet Take 1 tablet by mouth once daily. - atenolol (TENORMIN) 25 mg tablet Take 1 tablet by mouth once daily. - omeprazole (PRILOSEC) 20 mg capsule Take 1 capsule by mouth daily before breakfast. 1/2 hr before meal. - mupirocin (BACTROBAN) 2 % ointment Apply to affected area three times daily. Treat for 10 days or as directed. Apply intranasal - calcium Carbonate 300 mg, 750mg, (TUMS) 300 mg (750 mg) chewable tablet Take by mouth as needed. - vitamin B complex (B COMPLEX 1 ORAL) Take 1 capsule by mouth every Tuesday and Tuesday. - cholecalciferol, vitamin D3, (VITAMIN D3 ORAL) Take 10,000 Units by mouth. Twice a week - calcium carb/D3/magnesium/zinc (CALCIUM CARB-D3-MAG OX-ZINC OX ORAL) Take by mouth. 1 capsule three times a week - Ascorbic Acid (VITAMIN C) 1,000 mg tablet Take 2,000 mg by mouth. Three times a week - Zinc Acetate, Oral, 50 mg (zinc) cap Take 1 capsule by mouth. Three times a week - lysine 500 mg tab Take 500 mg by mouth as needed. - aspirin, enteric coated (ADULT LOW DOSE ASPIRIN) 81 mg EC tablet Take 1 tablet by mouth once daily. Problem List As Of Date 03/12/2024 Noted Resolved LIPOMA OTHER SKIN AND SUBCUTANEOUS(Left back) [D1*01/20/2005 10/31/2020 Marfan's syndrome [Q87.40] Abnormal mammogram [R92.8] 01/07/2015 10/31/2020 Aortic root dilation (HCC) [I77.810] Family history of Marfan syndrome [Z82.79] Cervical spondylosis without myelopathy [M47.81*07/09/2020 09/25/2020 Chronic mixed headache syndrome [G44.89] 10/31/2020 Obesity, Class I, BMI 30-34.9 [E66.811] 10/31/2020 Anxiety [F41.9] 10/31/2020 Cervical radiculopathy [M54.12] 04/03/2020 Depression with anxiety [F41.8] 04/08/2021 Adnexal mass [N94.89] 04/20/2021 Liver cyst [K76.89] 04/20/2021 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] 09/12/2022 Encounter Status:Closed by TAWNYA NOGUEIRA on 03/12/24 [facility] CNOVon 01-02-2024 CNOV Office Visit (INTMWS ) NINA SORIANOANNE ([id number]) 1965 F Date Time Provider Department 01/02/24 1:00 PM NOHEMY ADVIS INTMWS During your visit today, we recorded the following information about you: Pulse Blood pressure Weight 72/minute 118/78 89.7 kg Nohemy Davis APRN.[employer]LE LOOM WE[employer]ER 01/02/2024 1:32 PM Signed SUBJECTIVE Itzel Soriano is a 58 year old female here today for a check up on her medical problems. Chief Complaint Patient presents with: Medication Problem: had stopped cymbalta as she felt that the PT was helping with her pain and didn't need it anymore Started with dizziness/nausea on Tuesday and Tuesday started with mood changes and crying for no reason. HPI Itzel Soriano is a 58 year old female. She is an established patient of Lenny Dumas MD. Stopped her Cymbalta. She was not having any issues while taking the medication but PT helped her neck pain. Mood is okay, managing panic attacks. She had decreased her Cymbalta to every other day. Last dose was . Since being completely off of the medication she is having what she feels might be withdrawal symptoms, some dizziness, nausea, moodiness. Yesterday seemed to be the worst of it, a little better today. Her medications were reviewed today and her list is now up to date. Medications Current Outpatient Medications Medication Sig losartan (COZAAR) 100 mg tablet Take 1 tablet by mouth once daily. atenolol (TENORMIN) 25 mg tablet Take 1 tablet by mouth once daily. omeprazole (PRILOSEC) 20 mg capsule Take 1 capsule by mouth daily before breakfast. 1/2 hr before meal. mupirocin (BACTROBAN) 2 % ointment Apply to affected area three times daily. Treat for 10 days or as directed. Apply intranasal vitamin B complex (B COMPLEX 1 ORAL) Take 1 capsule by mouth every Tuesday and Tuesday. cholecalciferol, vitamin D3, (VITAMIN D3 ORAL) Take 10,000 Units by mouth. Twice a week calcium carb/D3/magnesium/zinc (CALCIUM CARB-D3-MAG OX-ZINC OX ORAL) Take by mouth. 1 capsule three times a week Ascorbic Acid (VITAMIN C) 1,000 mg tablet Take 2,000 mg by mouth. Three times a week Zinc Acetate, Oral, 50 mg (zinc) cap Take 1 capsule by mouth. Three times a week lysine 500 mg tab Take 500 mg by mouth as needed. aspirin, enteric coated (ADULT LOW DOSE ASPIRIN) 81 mg EC tablet Take 1 tablet by mouth once daily. calcium Carbonate 300 mg, 750mg, (TUMS) 300 mg (750 mg) chewable tablet Take by mouth as needed. (Patient not taking: Reported on 01/02/2024) No current facility-administered medications for this visit. ALLERGIES Allergen Reactions Baclofen GI Upset Cipro [Ciprofloxaci* Hives, Swelling Gabapentin Intolerance Macrobid [Nitrofura* Hives, Swelling Sulfa (Sulfonamide * Hives, Swelling Tramadol Other: See Comments when taken with Baclofen ACTIVE PROBLEM LIST Moderate Major Depression (Hcc) - 09/12/2022 Adnexal Mass - 04/20/2021 Liver Cyst - 04/20/2021 Depression With Anxiety - 04/08/2021 Chronic Mixed Headache Syndrome - 10/31/2020 Obesity, Class I, Bmi 30-34.9 - 10/31/2020 Anxiety - 10/31/2020 Cervical Radiculopathy - 04/03/2020 Family History of Marfan Syndrome Aortic Root Dilation (Hcc) Comment: 4.1 cm Marfan's Syndrome Comment: Lens dislocation and aortic root dilation Social History Tobacco Use Smoking status: Former Current packs/day: 0.00 Average packs/day: 1 pack/day for 31.0 years (31.0 ttl pk-yrs) Types: Cigarettes Start date: 02/29/1980 Quit date: 02/28/2011 Years since quittin.8 Smokeless tobacco: Never Vaping Use Vaping status: Never Used Substance Use Topics Alcohol use: No Drug use: No Review of Systems Respiratory: Negative. Cardiovascular: Negative. OBJECTIVE BP 118/78 Pulse 72 Wt 197 lb 12 oz (89.7kg) SpO2 98% LMP 11/07/2023 Physical Exam Vitals and nursing note reviewed. Constitutional: General: She is awake. She is not in acute distress. Appearance: Normal appearance. She is well-developed and well-groomed. She is not ill-appearing, toxic-appearing or diaphoretic. HENT: Head: Normocephalic. Right Ear: External ear normal. Left Ear: External ear normal. Nose: Nose normal. Eyes: General: Vision grossly intact. Conjunctiva/sclera: Conjunctivae normal. Pupils: Pupils are equal, round, and reactive to light. Neck: Vascular: No JVD. Trachea: Trachea normal. Cardiovascular: Rate and Rhythm: Normal rate and regular rhythm. Pulses: Normal pulses. Heart sounds: Normal heart sounds. No murmur heard. Pulmonary: Effort: Pulmonary effort is normal. No accessory muscle usage, prolonged expiration or respiratory distress. Breath sounds: Normal breath sounds. Musculoskeletal: Cervical back: Neck supple. Skin: General: Skin is warm and dry. Capillary Refill: Capillary refill takes less than 2 seconds. Neurological: General: No foca (more content not included)... Normal [facility] CTA Chest vessels W contrast Bruce 10-19-2023 IMPRESSION: AORTIC VALVE: appears trileaflet. No leaflet calcification. STABLE ECTASIA/MILD DILATION AORTIC ROOT: 4.4 x 4.2 cm CHEST: Chest wall anatomy: mild pectus excavatum. - again seen are enlarged bilateral axillary lymph nodes, stable since 2012. Clinical correlation is recommended Tray Checker: ARCELIA Transcribe Date/Time: Oct 19 2023 8:29A Dictated by : ROBIN HESS MD This examination was interpreted and the report reviewed and electronically signed by: BELINDA EDMONDS MD on Oct 19 2023 9:47AM [facility] DIVISION OF RADIOLOGY * * *Final Report* * * DATE OF EXAM: Oct 19 2023 8:03AM JQC 0125 - CTA CHEST (GATED) W IVCON / PROCEDURE REASON: multiple diagnoses * * * * Physician Interpretation * * * * CTA Aorta chest Direct Image Comparison: CTAs between 06/10/2017and 04/12/2012 HISTORY: 57 years old Female with chronic h/o ectasia/mild dilation aortic root Evaluation for interval change. There is request to define thoracic and aortic anatomy TECHNIQUE: SCANNER: Siemens Definition Force Dual source [id number] scanner PROTOCOL: Prospectively triggered helical high-pitch acquisitions (triggered Flash-mode) was performed following the intravenous administration of contrast material. Scan Range: thoracic inlet to the diaphragm CT Dose-Length Product (DLP): 222 mGy*cm CT Dose Reduction Employed: Automated exposure control(AEC) and iterative recon CONTRAST: IV administration of 80 ml Omnipaque 350 Scan acquisition: uncomplicated Macro Version: [id number]:CCTW_[id number] For optimization of anatomic evaluation, advanced 3-D off-line postprocessing was performed on a dedicated workstation by the interpreting physician. Additional lung CAD. Miner images reconstructed, saved, and available in Perfect Memory 'Get Images'. STUDY LIMITATIONS: Limited contrast enhancement of the right sided cardiac chambers and pulmonary artery.. RESULT: LINES, TUBES and DEVICES: None CHEST: Chest wall anatomy: mild pectus excavatum. - again seen are enlarged bilateral axillary lymph nodes, stable since 2012. Clinical correlation is recommended LUNGS: unremarkable. MEDIASTINUM: small mediastinal lymph nodes, which are not pathologic by size criteria. PERICARDIUM: unremarkable CENTRAL PULMONARY ARTERY: normal dimensions. Assessment is limited due to limited contrast enhancement. CARDIAC CHAMBERS: LEFT VENTRICLE: normal size. RIGHT VENTRICLE: normal size Left atrium: prominent. Small outpouching at the roof of the left atrium, most c/w small diverticulum. DOMONIQUE: normal. Right atrium: normal size CENTRAL VENOUS and PULMONARY VENOUS RETURN: normal. Coronary Sinus: normal size MITRAL VALVE: assessment is limited in the current study - no leaflet calcification. No annular calcification TRICUSPID and PULMONIC VALVE: appear unremarkable. CORONARY ANATOMY: normal origin of the coronary arteries. -short directly epicardial course of the mid LAD, bridged by shallow layer of muscle bundles crossing from LV to RV myocardium No definitive evidence of calcified atherosclerotic changes of the coronary arteries. AORTIC VALVE: appears trileaflet. No leaflet calcification. AORTA: Pathology: No acute aortic pathology. Intervention: None Complications: n/a Aortic Size: Ectasia/Mild Dilation aortic root. The remaining segments of the thoracic aorta are normal in size STJ: maintained. Wall Changes: Mild partially calcified wall changes descending thoracic aorta. Arch Branch Vessels: Unremarkable proximal segments of the arch branch vessels. AORTIC DIMENSIONS: ANNULUS: max. and min. Diameter: 2.5 x 2.1 cm. AREA 4.2 cm2 AORTIC ROOT: 4.4 x 4.2 cm measured [id number] No significant interval change mid ASCENDING THORACIC AORTA: 3.4 cm mid AORTIC ARCH: 2.6 cm mid DESCENDING THORACIC AORTA: 2.4 cm limited upper ABDOMEN: small cystic lesions of the liver Pipelines Laborer (topogram) images: No additional findings. DIVISION OF RADIOLOGY Provider, [facility] - 10/19/2023 * * *Final Report* * * DATE OF EXAM: Oct 19 2023 8:03AM JQC 0125 - CTA CHEST (GATED) W IVCON / PROCEDURE REASON: multiple diagnoses * * * * Physician Interpretation * * * * CTA Aorta chest Direct Image Comparison: CTAs between 06/10/2017and 04/12/2012 HISTORY: 57 years old Female with chronic h/o ectasia/mild dilation aortic root Evaluation for interval change. There is request to define thoracic and aortic anatomy TECHNIQUE: SCANNER: Siemens Definition Force Dual source [id number] scanner PROTOCOL: Prospectively triggered helical high-pitch acquisitions (triggered Flash-mode) was performed following the intravenous administration of contrast material. Scan Range: thoracic inlet to the diaphragm CT Dose-Length Product (DLP): 222 mGy*cm CT Dose Reduction Employed: Automated exposure control(AEC) and iterative recon CONTRAST: IV administration of 80 ml Omnipaque 350 Scan acquisition: uncomplicated Macro Version: [id number] For optimization of anatomic evaluation, advanced 3-D off-line postprocessing was performed on a dedicated workstation by the interpreting physician. Additional lung CAD. Miner images reconstructed, saved, and available in Perfect Memory 'Get Images'. STUDY LIMITATIONS: Limited contrast enhancement of the right sided cardiac chambers and pulmonary artery.. RESULT: LINES, TUBES and DEVICES: None CHEST: Chest wall anatomy: mild pectus excavatum. - again seen are enlarged bilateral axillary lymph nodes, stable since 2013. Clinical correlation is recommended LUNGS: unremarkable. MEDIASTINUM: small mediastinal lymph nodes, which are not pathologic by size criteria. PERICARDIUM: unremarkable CENTRAL PULMONARY ARTERY: normal dimensions. Assessment is limited due to limited contrast enhancement. CARDIAC CHAMBERS: LEFT VENTRICLE: normal size. RIGHT VENTRICLE: normal size Left atrium: prominent. Small outpouching at the roof of the left atrium, most c/w small diverticulum. DOMONIQUE: normal. Right atrium: normal size CENTRAL VENOUS and PULMONARY VENOUS RETURN: normal. Coronary Sinus: normal size MITRAL VALVE: assessment is limited in the current study - no leaflet calcification. No annular calcification TRICUSPID and PULMONIC VALVE: appear unremarkable. CORONARY ANATOMY: normal origin of the coronary arteries. -short directly epicardial course of the mid LAD, bridged by shallow layer of muscle bundles crossing from LV to RV myocardium No definitive evidence of calcified atherosclerotic changes of the coronary arteries. AORTIC VALVE: appears trileaflet. No leaflet calcification. AORTA: Pathology: No acute aortic pathology. Intervention: None Complications: n/a Aortic Size: Ectasia/Mild Dilation aortic root. The remaining segments of the thoracic aorta are normal in size STJ: maintained. Wall Changes: Mild partially calcified wall changes descending thoracic aorta. Arch Branch Vessels: Unremarkable proximal segments of the arch branch vessels. AORTIC DIMENSIONS: ANNULUS: max. and min. Diameter: 2.5 x 2.1 cm. AREA 4.2 cm2 AORTIC ROOT: 4.4 x 4.2 cm measured [id number] No significant interval change mid ASCENDING THORACIC AORTA: 3.4 cm mid AORTIC ARCH: 2.6 cm mid DESCENDING THORACIC AORTA: 2.4 cm limited upper ABDOMEN: small cystic lesions of the liver Pipelines Laborer (topogram) images: No additional findings. IMPRESSION IMPRESSION: AORTIC VALVE: appears trileaflet. No leaflet calcification. STABLE ECTASIA/MILD DILATION AORTIC ROOT: 4.4 x 4.2 cm CHEST: Chest wall anatomy: mild pectus excavatum. - again seen are enlarged bilateral axillary lymph nodes, stable since 2012. Clinical correlation is recommended Tray Checker: ARCELIA Transcribe Date/Time: Oct 19 2023 8:29A Dictated by : ROBIN HESS MD This examination was interpreted and the report reviewed and electronically signed by: BELINDA EDMONDS MD on Oct 19 2023 9:47AM EST [facility] Chest vessels W contrast IVOrdered By: Ccf Provider on 10-19-2023 [facility] XR Cervical spine AP and Lat eral and obliqueon 08-19-2023 IMPRESSION: Mild to moderate degenerative changes. Tray Checker: ARCELIA Transcribe Date/Time: Aug 19 2023 7:57A Dictated by : JODI LEAL MD This examination was interpreted and the report reviewed and electronically signed by: JODI LEAL MD on Aug 19 2023 7:58AM EST DIVISION OF RADIOLOGY * * *Final Report* * * DATE OF EXAM: Aug 15 2023 9:48AM WOX [id number] - XR CERVICAL 4V AP/LAT/OBL / PROCEDURE REASON: multiple diagnoses * * * * Physician Interpretation * * * * EXAMINATION: XR CERVICAL 4V AP/LAT/OBL HISTORY: Chronic neck pain that has increased over time. Pain radiates down the right arm Cervical radiculopathy Cervical disc herniation . TECHNIQUE: XR CERVICAL 4V AP/LAT/OBL Laterality: NOT APPLICABLE Number of different views (projections): 4 M: XB_1 COMPARISON: RESULT: Counting reference: Craniocervical junction. Anatomic Variants: None. Straightening of the cervical lordosis. Normal vertebral body heights. Mild to moderate degenerative disc changes at C5-6 and C6-7 with mild to moderate degenerative facet changes throughout. No high-grade bony foraminal narrowing is seen. No acute fracture or dislocation. There are no bony erosions. DIVISION OF RADIOLOGY Provider, [facility] - 08/19/2023 * * *Final Report* * * DATE OF EXAM: Aug 15 2023 9:48AM WOX [id number] - XR CERVICAL 4V AP/LAT/OBL / PROCEDURE REASON: multiple diagnoses * * * * Physician Interpretation * * * * EXAMINATION: XR CERVICAL 4V AP/LAT/OBL HISTORY: Chronic neck pain that has increased over time. Pain radiates down the right arm Cervical radiculopathy Cervical disc herniation . TECHNIQUE: XR CERVICAL 4V AP/LAT/OBL Laterality: NOT APPLICABLE Number of different views (projections): 4 M: XB_1 COMPARISON: RESULT: Counting reference: Craniocervical junction. Anatomic Variants: None. Straightening of the cervical lordosis. Normal vertebral body heights. Mild to moderate degenerative disc changes at C5-6 and C6-7 with mild to moderate degenerative facet changes throughout. No high-grade bony foraminal narrowing is seen. No acute fracture or dislocation. There are no bony erosions. IMPRESSION IMPRESSION: Mild to moderate degenerative changes. Tray Checker: ARCELIA Transcribe Date/Time: Aug 19 2023 7:57A Dictated by : JODI LEAL MD This examination was interpreted and the report reviewed and electronically signed by: JODI LEAL MD on Aug 19 2023 7:58AM EST [facility] XR Cervical spine AP and Lat eral and obliqueOrdered By: Ccf Provider on 08-19-2023 [facility] XR Cervical spine AP and Lat eral and obliqueon 08-15-2023 Radiology Study observation (narrative) [facility] UA DIP,URINE HCG (POC)on Beta HCG ( test) Ql (U) Negative Negative [facility] Clinical Immunologist (POCT) Internal QC OK [facility] UA DIP, URINE (POC)on 2023 BILIRUBIN UA (POCT) Negative Negative [facility] CLARITY UA (POCT) Clear [facility] COLOR UA (POCT) Yellow [facility] GLUCOSE UA (POCT) Negative Negative mg/dL [facility] Hemoglobin Ql (U) Moderate Abnormal Negative [facility] KETONE UA (POCT) Negative Negative mg/dL [facility] LEUKOCYTES UA (POCT) Moderate Abnormal Negative [facility] NITRITE UA (POCT) Negative Negative [facility] PH UA (POCT) 7.5 4.5 - 8.0 [facility] Protein Ql (U) Negative Negative mg/dL [facility] SPECIFIC GRAVITY UA (POCT) 1.015 1.005 - 1.030 [facility] UROBILINOGEN UA (POCT) 0.2 E.U./dL Sharita l E.U./dL [facility] DBT Breast - bilateral scree ningon 04-07-2023 [facility] US THYROID/PARATHYROIDon [facility] XR CHEST 2V FRONTAL/LATon [facility] XR Chest PA and Lateralon IMPRESSION: No acute radiographic abnormality. Tray Checker: ARCELIA Transcribe Date/Time: Aug 11 2022 5:05P Dictated by : REY GARCÍA MD This examination was interpreted and the report reviewed and electronically signed by: REY GARCÍA MD on Aug 11 2022 5:05PM [facility] DIVISION OF RADIOLOGY * * *Final Report* * * DATE OF EXAM: Aug 11 2022 4:59PM WOX [id number] - XR CHEST 2V FRONTAL/LAT / PROCEDURE REASON: multiple diagnoses * * * * Physician Interpretation * * * * EXAMINATION: CHEST RADIOGRAPH (2 VIEW FRONTAL & LATERAL) CLINICAL HISTORY: Sternal pain SOB (shortness of breath) MQ: XC2_6 EXAM DATE/TIME: 08/11/2022 4:59 PM COMPARISON: No relevant prior studies available. RESULT: Lines, tubes, and devices: None. Lungs and pleura: Small lung volume due to inadequate inspiration. No consolidation. No lung mass. No pleural effusion. No pneumothorax. Cardiomediastinal silhouette: Unremarkable cardiomediastinal silhouette. Bones and soft tissues: Unremarkable. DIVISION OF RADIOLOGY Provider, [facility] - 08/11/2022 * * *Final Report* * * DATE OF EXAM: Aug 11 2022 4:59PM WOX 5291 - XR CHEST 2V FRONTAL/LAT / PROCEDURE REASON: multiple diagnoses * * * * Physician Interpretation * * * * EXAMINATION: CHEST RADIOGRAPH (2 VIEW FRONTAL & LATERAL) CLINICAL HISTORY: Sternal pain SOB (shortness of breath) MQ: XC2_6 EXAM DATE/TIME: 08/11/2022 4:59 PM COMPARISON: No relevant prior studies available. RESULT: Lines, tubes, and devices: None. Lungs and pleura: Small lung volume due to inadequate inspiration. No consolidation. No lung mass. No pleural effusion. No pneumothorax. Cardiomediastinal silhouette: Unremarkable cardiomediastinal silhouette. Bones and soft tissues: Unremarkable. IMPRESSION IMPRESSION: No acute radiographic abnormality. Tray Checker: ARCELIA Transcribe Date/Time: Aug 11 2022 5:05P Dictated by : REY GARCÍA MD This examination was interpreted and the report reviewed and electronically signed by: REY GARCÍA MD on George 14 2023 5:05PM [facility] Radiology Study observation (narrative) [facility] XR Chest PA and LateralOrder ed By: Ccf Provider on 08-11-2022 [facility] MRI CERVICAL SPINE WO IVCONo n 06-11-2022 [facility] UA DIP, URINE (POC)on 2022 BILIRUBIN UA (POCT) Negative Negative [facility] CLARITY UA (POCT) [facility] COLOR UA (POCT) Yellow [facility] GLUCOSE UA (POCT) Negative Negative mg/dL [facility] HEMOGLOBIN/BLOOD UA (POCT) Moderate Abnormal Negative [facility] KETONE UA (POCT) Negative Negative mg/dL [facility] LEUKOCYTES UA (POCT) Large Abnormal Negative [facility] NITRITE UA (POCT) Negative [facility] PH UA (POCT) 7.0 4.5 - 8.0 [facility] Protein Ql (U) Negative Negative mg/dL [facility] SPECIFIC GRAVITY UA (POCT) 1.010 1.005 - 1.030 [facility] UROBILINOGEN UA (POCT) 0.2 E.U./dL Sharita l E.U./dL [facility] UA DIP, URINE (POC)on 2021 BILIRUBIN UA (POCT) Negative Negative [facility] CLARITY UA (POCT) [facility] COLOR UA (POCT) Yellow [facility] GLUCOSE UA (POCT) Negative Negative mg/dL [facility] HEMOGLOBIN/BLOOD UA (POCT) Trace-intact Abnormal Negative [facility] KETONE UA (POCT) Negative Negative mg/dL [facility] LEUKOCYTES UA (POCT) Small Abnormal Negative [facility] NITRITE UA (POCT) Negative Negative [facility] PH UA (POCT) 7.0 4.5 - 8.0 [facility] Protein Ql (U) Negative Negative mg/dL [facility] SPECIFIC GRAVITY UA (POCT) 1.010 1.005 - 1.030 [facility] UROBILINOGEN UA (POCT) 0.2 E.U./dL Sharita l E.U./dL [facility] Lab Report: Basic Metabolic Profile (BMP)on 10-29-2016 Anion gap 7 mmol/L Invalid Interpretation Code 5-15 [facility] Work Phone: Anion gap molar conc 7 mmol/L 5-[address] [facility] Work Phone: [phone] Calcium mass conc 8.8 mg/dL Invalid Interpretation Code 8.5-10.1 [facility] Work Phone: [phone] Chloride molar conc 107 mmol/L Invalid Interpretation Code 98-107 [facility] Work Phone: [phone] CO2 24.0 mmol/L Invalid Interpretation Code 21.0-32.0 [facility] Work Phone: [phone] CO2 ppres (BldV) 24.0 mmol/L 21.0-32.0 [facility] Work Phone: [phone] Creatinine mass conc 0.63 mg/dL Invalid Interpretation Code 0.55-1.02 [facility] Work Phone: [phone] eGFR (non-black) 128 mL/min/{1.73_m2} Invalid Interpretation Code >60 [facility] Work Phone: [phone] EST GFR - AA 128 mL/min >60 [facility] Work Phone: [phone] GFR/1.73 sq M predicted among non-blacks MDRD vol rate/area (S/P/Bld) 106 mL/min/{1.73_m2} Invalid Interpretation Code >60 [facility] Work Phone: [phone] Glucose 99 mg/dL Invalid Interpretation Code 70-110 [facility] Work Phone: [phone] Glucose mass conc 99 mg/dL 70-110 [facility] Work Phone: [phone] Potassium molar conc 4.2 mmol/L Invalid Interpretation Code 3.5-5.1 [facility] Work Phone: [phone] Sodium molar conc 138 mmol/L Invalid Interpretation Code 136-145 [facility] Work Phone: [phone] Urea nitrogen mass conc 10 mg/dL Invalid Interpretation Code 7-18 [facility] Work Phone: [phone] Urea nitrogen/Creatinine mass ratio 15.8 RATIO Invalid Interpretation Code 10-20 [facility] Work Phone: [phone] Lab Report: CBC W/Diff, Auto matedon 09-01-2017 Basophils/100 leukocytes 0.5 % Invalid Interpretation Code 0-1 [facility] Work Phone: [phone] Basophils/100 WBC (Bld) 0.5 % 0-1 [facility] Work Phone: [phone] Eosinophils/100 leukocytes 4.0 % Invalid Interpretation Code 0-5 [facility] Work Phone: [phone] Eosinophils/100 WBC (Bld) 4.0 % 0-5 [facility] Work Phone: [phone] Erythrocyte distribution width Ratio (RBC) 40.9 fL 35.1-43.9 [facility] Work Phone: [phone] Erythrocyte distribution width Ratio (RBC) 12.7 % 11.6-14.6 [facility] Work Phone: [phone] Erythrocytes (RBC) 4.35 10*6/uL Invalid Interpretation Code 4.2-5.4 [facility] Work Phone: [phone] Hematocrit (HCT) 38.2 % Invalid Interpretation Code 37-47 [facility] Work Phone: [phone] Hematocrit Volume Fraction (Bld) 38.2 % 37-47 [facility] Work Phone: [phone] Hemoglobin mass conc (Bld) 12.7 g/dL Invalid Interpretation Code 12.0-15.0 [place] Work Phone: [phone] Immature granulocytes #/vol (Bld) 0.200 % 0.0-0.9 [place] Work Phone: [phone] immature granulocytes, percentage of total cells, blood 0.200 % Invalid Interpretation Code 0.0-0.9 [facility] Work Phone: [phone] Lymphocytes 2.00 X10 3/UL Invalid Interpretation Code 0.83-4.51 [facility] Work Phone: [phone] Lymphocytes #/vol (Bld) 2.00 X10 3/UL 0.83-4.51 [facility] Work Phone: [phone] Lymphocytes/100 leukocytes 36.0 % Invalid Interpretation Code 19-41 [facility] Work Phone: [phone] Lymphocytes/100 WBC (Bld) 36.0 % 19-41 [facility] Work Phone: [phone] MCH 29.2 pg Invalid Interpretation Code 27.0-32.0 [facility] Work Phone: [phone] MCH Entitic mass (RBC) 29.2 pg 27.0-32.0 [facility] Work Phone: [phone] MCHC 33.2 G/GL Invalid Interpretation Code 32-36 [facility] Work Phone: [phone] MCHC mass conc (RBC) 33.2 G/GL 32-[address] [facility] Work Phone: [phone] MCV 87.8 fL Invalid Interpretation Code 81-99 [facility] Work Phone: [phone] MCV Entitic volume (RBC) 87.8 fL 81-99 [facility] Work Phone: [phone] Monocytes/100 leukocytes 8.1 % Invalid Interpretation Code 0-10 [facility] Work Phone: [phone] Monocytes/100 WBC (Bld) 8.1 % 0-10 [facility] Work Phone: [phone] neutrophil count, blood 2.8 X10 3/UL Invalid Interpretation Code 2.0-7.7 [facility] Work Phone: [phone] Neutrophils #/vol (Bld) 2.8 X10 3/UL 2.0-7.7 [facility] Work Phone: [phone] Neutrophils/100 leukocytes 51.2 % Invalid Interpretation Code 47-70 [facility] Work Phone: [phone] Neutrophils/100 WBC (Bld) 51.2 % 47-70 [facility] Work Phone: [phone] Platelet mean volume Entitic volume (Bld) 10.5 fL 6.2-12.0 [facility] Work Phone: [phone] Platelets 232 10*3/mm3 Invalid Interpretation Code 150-450 [facility] Work Phone: [phone] Platelets #/vol (Bld) 232 10*3/mm3 150-450 [facility] Work Phone: [phone] PMV by Yobany-John 10.5 fL Invalid Interpretation Code 6.2-12.0 [facility] Work Phone: [phone] RBC #/vol (Bld) 4.35 10*6/uL 4.2-5.4 [facility] Work Phone: [phone] RDW-CA 12.7 % Invalid Interpretation Code 11.6-14.6 [facility] Work Phone: [phone] red blood cell distribution width, size density 40.9 fL Invalid Interpretation Code 35.1-43.9 [facility] Work Phone: [phone] WBC #/vol (Bld) 5.6 10*3/uL 4.4-11.0 [facility] Work Phone: [phone] WBC (Leukocytes) 5.6 10*3/uL Invalid Interpretation Code 4.4-11.0 [facility] Work Phone: [phone] Lab Report: Hemoglobin A1con 10-29-2016 Hemoglobin A1c/Hemoglobin.total mass fraction (Bld) 5.8 % Invalid Interpretation Code 4.2-6.3 [facility] Work Phone: [phone] Lab Report: Lipid Profileon 10-29-2016 Cholesterol in HDL mass conc 58 mg/dL Invalid Interpretation Code [facility] Work Phone: [phone] Cholesterol in LDL mass conc 123 mg/dL Invalid Interpretation Code 0-130 [facility] Work Phone: [phone] Cholesterol mass conc 196 mg/dL Invalid Interpretation Code 200 [facility] Work Phone: [phone] Lipoprotein.pre-beta mass conc 15 mg/dL Invalid Interpretation Code 5-40 [facility] Work Phone: [phone] Triglyceride mass conc 74 mg/dL Invalid Interpretation Code [facility] Work Phone: [phone] Lab Report: T4 Free Directon 10-29-2016 T4 free mass conc 0.90 ng/dL Invalid Interpretation Code 0.76-1.46 [facility] Work Phone: [phone] Lab Report: Thyroid Stim Hor judson (TSH)on 10-29-2016 Thyrotropin Qn 1.41 u[iU]/mL Invalid Interpretation Code 0.358-3.74 [facility] Work Phone: [phone] Lab Report: Vitamin D,25 Hyd roxyon 10-29-2016 vitamin D 25-hydroxy, serum 26.8 ng/mL Invalid Interpretation Code [facility] Work Phone: Office Visiton 10-27-2016 Dietary management education, guidance, and counseling (procedure) yes Invalid Interpretation Code [facility] Work Phone: [phone] Documentation of current medications (procedure) Done Invalid Interpretation Code [facility] Work Phone: [phone] Protein mass conc Done [facility] Work Phone: [phone] Tobacco smoking status NHIS Former smoker [facility] Work Phone: [phone] Tobacco use [facility] Former smoker Invalid Interpretation Code [facility] Work Phone: [phone] Replaced Document: Midmark E CG Observationson 10-27-2016 EKG QRS axis 28 deg [facility] Work Phone: [phone] electrocardiogram interpretation Sinus Rhythm - Nonspecific T-abnormality. ABNORMAL Invalid Interpretation Code [facility] Work Phone: [phone] GE use only - for [employer] import when terms are not otherwise specified 429 ms Invalid Interpretation Code [facility] Work Phone: [phone] Interpretation Sinus Rhythm - Nonspecific T-abnormality. ABNORMAL [facility] Work Phone: [phone] P [place] 44 deg [facility] Work Phone: [phone] P wave axis, electrocardiogram 44 deg Invalid Interpretation Code [facility] Work Phone: [phone] ID Interval 128 ms [facility] Work Phone: [phone] ID interval, electrocardiogram 128 ms Invalid Interpretation Code [facility] Work Phone: [phone] Pulse (Heart Rate) 85 /min Invalid Interpretation Code [facility] Work Phone: [phone] QRS axis, electrocardiogram 28 deg Invalid Interpretation Code [facility] Work Phone: [phone] QRS Duration 86 ms [facility] Work Phone: [phone] QRS duration, electrocardiogram 86 ms Invalid Interpretation Code [facility] Work Phone: QT Interval new path ms [facility] Work Phone: [phone] QT interval, electrocardiogram new path ms Invalid Interpretation Code [facility] Work Phone: [phone] QTc No 429 ms [facility] Work Phone: [phone] T [place] 1 deg [facility] Work Phone: [phone] T wave axis, electrocardiogram 1 deg Invalid Interpretation Code [facility] Work Phone: [phone] Office Visit: New Pt. 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 03-08-2012 Cholesterol 202 mg/dL High [facility] Work Phone: [phone] HDL Cholesterol 55 mg/dL Invalid Interpretation Code [facility] Work Phone: [phone] LDL Cholesterol 132 mg/dL High [facility] Work Phone: [phone] Triglyceride 75 mg/dL Invalid Interpretation Code [facility] Work Phone: [phone] very low density lipoproteins 15 mg/dL Invalid Interpretation Code [facility] Work Phone: [phone] Clinical Lists Update: human resources hr generalist 02-01-2012 Alanine aminotransferase (ALT) 20 U/L Invalid Interpretation Code [facility] Work Phone: [phone] Albumin 4.0 g/dL Invalid Interpretation Code [facility] Work Phone: [phone] Alkaline phosphatase (ALP) 73 U/L Invalid Interpretation Code [facility] Work Phone: [phone] ALP enzyme act/vol (Bld) 73 U/L [facility] Work Phone: [phone] Anion gap 7 mmol/L Invalid Interpretation Code [facility] Work Phone: [phone] Aspartate aminotransferase (AST) 12 U/L Low [facility] Work Phone: [phone] Bilirubin (total) 0.30 mg/dL Invalid Interpretation Code [facility] Work Phone: [phone] BUN/Creatinine Ratio 18.6 mg/mg Invalid Interpretation Code [facility] Work Phone: [phone] Calcium 9.1 mg/dL Invalid Interpretation Code [facility] Work Phone: [phone] Chloride 105 mmol/L Invalid Interpretation Code [facility] Work Phone: [phone] CO2 27 mmol/L Invalid Interpretation Code [facility] Work Phone: [phone] Creatinine 0.7 mg/dL Invalid Interpretation Code [facility] Work Phone: [phone] Erythrocytes (RBC) 4.10 10*6/uL [facility] Work Phone: [phone] Glucose 103 mg/dL Invalid Interpretation Code [facility] Work Phone: [phone] Hematocrit (HCT) 36 % Low [facility] Work Phone: [phone] Hemoglobin (HGB) 12.5 g/dL Invalid Interpretation Code [facility] Work Phone: [phone] MCH 30.5 pg Invalid Interpretation Code [facility] Work Phone: [phone] MCV 87.7 fL Invalid Interpretation Code [facility] Work Phone: [phone] Platelets 219 10*3/mm3 Invalid Interpretation Code [facility] Work Phone: [phone] Potassium 4.6 mmol/L Invalid Interpretation Code [facility] Work Phone: [phone] Protein 7.2 g/dL Invalid Interpretation Code [facility] Work Phone: [phone] Sodium 139 mmol/L Invalid Interpretation Code [facility] Work Phone: [phone] Urea nitrogen 13 mg/dL Invalid Interpretation Code [facility] Work Phone: [phone] WBC (Leukocytes) 5.2 10*3/uL Invalid Interpretation Code [facility] Work Phone: [phone] Clinical Lists Update: Prelo human resources hr generalist 07-06-2011 Thyroid stimulating hormone (TSH) 2.86 u[iU]/mL Invalid Interpretation Code [facility] Work Phone: Office Visiton 06-10-2011 Alcoholism counseling (procedure) no Invalid Interpretation Code [facility] Work Phone: Protein mass conc no [facility] Work Phone: Vital Signs Date Time Vital Sign Value Performing Clinician Facility 11-06-2024 08:11-0400 Body height 170.8 cm [facility] Work Phone: [facility] 11-06-2024 08:11-0400 Body mass index (BMI) [Ratio] 32.03 kg/m2 [facility] Work Phone: [facility] 11-06-2024 08:11-0400 Body weight 93.44 kg [facility] Work Phone: [facility] 11-06-2024 08:11-0400 Heart rate 61 /min [facility] Work Phone: [facility] 11-06-2024 08:11-0400 Respiratory rate 14 /min [facility] Work Phone: [facility] 11-06-2024 08:11-0400 SaO2% (BldA) [Mass fraction] 97 % [facility] Work Phone: [facility] 11-01-2024 08:40-0400 Body height 172.7 cm Ben Franklin APRN.[employer]EDLE LOOM WEAVER Work Phone: [facility] 11-01-2024 08:40-0400 Body mass index (BMI) [Ratio] 31.78 kg/m2 Ben Franklin LAY OUT CARPENTER.[employer] WEAVER Work Phone: [facility] 11-01-2024 08:40-0400 Body weight 94.8 kg Ben Franklin LAY OUT CARPENTER.[employer] WEAVER Work Phone: [facility] 11-01-2024 08:40-0400 Diastolic blood pressure 72 mm[Hg] Ben Franklin LAY OUT CARPENTER.[employer] WEAVER Work Phone: [facility] 11-01-2024 08:40-0400 Heart rate 62 /min Benwalter Franklin LAY OUT CARPENTER.[employer] WEAVER Work Phone: [facility] 11-01-2024 08:40-0400 Respiratory rate 14 /min Benwalter Franklin LAY OUT CARPENTER.[employer]EDLE LOOM WEAVER Work Phone: [facility] 11-01-2024 08:40-0400 SaO2% (BldA) [Mass fraction] 97 % Benwalter Franklin LAY OUT CARPENTER.[employer]ED[employer] LO[employer] WEAVER Work Phone: [facility] 11-01-2024 08:40-0400 Systolic blood pressure 110 mm[Hg] Benwalter Franklin LAY OUT CARPENTER.[employer]ER Work Phone: [facility] 09-26-2024 10:07-0400 Body mass index (BMI) [Ratio] 31.44 kg/m2 Lenny Dumas MD Work Phone: [facility] 09-26-2024 10:07-0400 Body weight 93.8 kg Lenny Dumas MD Work Phone: [facility] 09-26-2024 10:07-0400 Diastolic blood pressure 77 mm[Hg] Lenny Dumas MD Work Phone: [facility] 09-26-2024 10:07-0400 Heart rate 63 /min Lenny Dumas MD Work Phone: [facility] 09-26-2024 10:07-0400 SaO2% (BldA) [Mass fraction] 97 % Lenny Dumas MD Work Phone: [facility] 09-26-2024 10:07-0400 Systolic blood pressure 116 mm[Hg] Lenny Dumas MD Work Phone: [facility] 08-20-2024 11:18-0400 Body height 170.2 cm Belinda Jenkins MD Work Phone: [employer] [employer] 08-20-2024 11:18-0400 Body mass index (BMI) [Ratio] 33.61 kg/m2 Belinda Jenkins MD Work Phone: [facility] 08-20-2024 11:18-0400 Body weight 97.34 kg Belinda Jenkins MD Work Phone: [facility] 08-20-2024 11:18-0400 Diastolic blood pressure 60 mm[Hg] Belinda Jenkins MD Work Phone: [facility] 08-20-2024 11:18-0400 Heart rate 80 /min Belinda Jenkins MD Work Phone: [facility] 08-20-2024 11:18-0400 Systolic blood pressure 93 mm[Hg] Belinda Jenkins MD Work Phone: [facility] 07-20-2024 10:24-0400 Body height 172.7 cm Lenny Dumas MD Work Phone: [facility] 07-20-2024 10:24-0400 Body mass index (BMI) [Ratio] 32.08 kg/m2 Lenny Dumas MD Work Phone: [facility] 07-20-2024 10:24-0400 Body weight 95.7 kg Lenny Dumas MD Work Phone: [facility] 07-20-2024 10:24-0400 Diastolic blood pressure 66 mm[Hg] Lenny Dumas MD Work Phone: [facility] 07-20-2024 10:24-0400 Heart rate 75 /min Lenny Dumas MD Work Phone: [facility] 07-20-2024 10:24-0400 SaO2% (BldA) [Mass fraction] 98 % Lenny Dumas MD Work Phone: [facility] 07-20-2024 10:24-0400 Systolic blood pressure 100 mm[Hg] Lenny Dumas MD Work Phone: [facility] 07-11-2024 15:04-0400 Body height 172.7 cm True Mayers MD Work Phone: [facility] 07-11-2024 15:04-0400 Body mass index (BMI) [Ratio] 31.32 kg/m2 True Mayers MD Work Phone: [facility] 07-11-2024 15:04-0400 Body weight 93.44 kg True Mayers MD Work Phone: [facility] 07-11-2024 15:04-0400 Diastolic blood pressure 73 mm[Hg] True Mayers MD Work Phone: [facility] 07-11-2024 15:04-0400 Heart rate 79 /min True Mayers MD Work Phone: [facility] 07-11-2024 15:04-0400 SaO2% (BldA) [Mass fraction] 97 % True Mayers MD Work Phone: [facility] 07-11-2024 15:04-0400 Systolic blood pressure 120 mm[Hg] True Mayers MD Work Phone: [facility] 07-02-2024 11:13-0400 Body height 170.2 cm Belinda Jenkins MD Work Phone: [facility] 07-02-2024 11:13-0400 Body mass index (BMI) [Ratio] 33.17 kg/m2 Belinda Jenkins MD Work Phone: [facility] [employer] 07-02-2024 11:13-0400 Body weight 96.07 kg Belinda Jenkins MD Work Phone: [facility] [employer] 07-02-2024 11:13-0400 Diastolic blood pressure 77 mm[Hg] Belinda Jenkins MD Work Phone: [facility] [employer] 07-02-2024 11:13-0400 Heart rate 83 /min Belinda Jenkins MD Work Phone: [facility] [employer] 07-02-2024 11:13-0400 Systolic blood pressure 118 mm[Hg] Belinda Jenkins MD Work Phone: [facility] 06-27-2024 20:24-0400 Body temperature 98 [degF] Dr. Lenny Dumas MD Work Phone: 6(102)[phone] [place] [address] 06-27-2024 20:24-0400 Diastolic blood pressure 80 mm[Hg] Dr. Lenny Dumas MD Work Phone: 6(101)183-073872 [place] [address] 06-27-2024 20:24-0400 Heart rate 64 /min Dr. Lenny Dumas MD Work Phone: 3(577)359-559172 [place] [address] 06-27-2024 20:24-0400 Respiratory rate 17 /min Dr. Lenny Dumas MD Work Phone: 9(083)902-347872 [place] [address] 06-27-2024 20:24-0400 SaO2% (BldA) [Mass fraction] 99 % Dr. Lenny Dumas MD Work Phone: 7(325)525-109272 [place] [address] 06-27-2024 20:24-0400 Systolic blood pressure 119 mm[Hg] Dr. Lenny Dumas MD Work Phone: 3(596)808-942472 [place] [address] 06-27-2024 17:42-0400 Body height 170.[address] Lenny Dumas MD Work Phone: 0(246)467-334972 [place] [address] 06-27-2024 17:42-0400 Body mass index (BMI) [Ratio] 33.7 kg/m2 Dr. Lenny Dumas MD Work Phone: 1(239)526-426345 [place] [address] 06-27-2024 17:42-0400 Body weight 97.[address] Lenny Dumas MD Work Phone: 8(632)923-337872 [place] [address] 06-27-2024 17:21-0400 Body temperature 97.5 [degF] Gabby Hughes APRN.[employer] WEAVER Work Phone: [facility] 06-27-2024 17:21-0400 Diastolic blood pressure 82 mm[Hg] Gabby Hughes APRN.[employer]ED[employer] WEAVER Work Phone: [facility] 06-27-2024 17:21-0400 Heart rate 88 /min Gabby Hughes LAY OUT CARPENTER.[employer] WE[employer]ER Work Phone: [facility] 06-27-2024 17:21-0400 Respiratory rate 1 /min Gabby King LAY OUT CARPENTER.[employer] WEAVER Work Phone: [facility] 06-27-2024 17:21-0400 Systolic blood pressure 122 mm[Hg] Gabby Saul LAY OUT CARPENTER.[employer] WEAVER Work Phone: [facility] 05-29-2024 18:03-0400 Body height 170.2 cm Lenny Dumas MD Work Phone: [facility] 05-29-2024 18:03-0400 Body mass index (BMI) [Ratio] 32.91 kg/m2 Lenny Dumas MD Work Phone: [facility] 05-29-2024 18:03-0400 Body temperature 99 [degF] Lenny Dumas MD Work Phone: [facility] 05-29-2024 18:03-0400 Body weight 95.3 kg Lenny Dumas MD Work Phone: [facility] 05-29-2024 18:03-0400 Diastolic blood pressure 76 mm[Hg] Lenny Dumas MD Work Phone: [facility] 05-29-2024 18:03-0400 Heart rate 97 /min Lenny Dumas MD Work Phone: [facility] 05-29-2024 18:03-0400 Respiratory rate 12 /min Lenny Dumas MD Work Phone: [facility] 05-29-2024 18:03-0400 SaO2% (BldA) [Mass fraction] 97 % Lenny Dumas MD Work Phone: [facility] 05-29-2024 18:03-0400 Systolic blood pressure 124 mm[Hg] Lenny Dumas MD Work Phone: [facility] 05-11-2024 13:21-0400 Body height 170.2 cm Konstantin River MD Work Phone: [facility] 05-11-2024 13:21-0400 Body mass index (BMI) [Ratio] 32.73 kg/m2 Konstantin River MD Work Phone: [facility] 05-11-2024 13:21-0400 Body weight 94.8 kg Konstantin River MD Work Phone: [facility] 05-11-2024 13:21-0400 Diastolic blood pressure 82 mm[Hg] Konstantin River MD Work Phone: [facility] 05-11-2024 13:21-0400 Systolic blood pressure 124 mm[Hg] Konstantin River MD Work Phone: [facility] 03-12-2024 09:44-0500 Body mass index (BMI) [Ratio] 30.87 kg/m2 Ameena Larsen MD Work Phone: [facility] 03-12-2024 09:44-0500 Body weight 92.08 kg Ameena Larsen MD Work Phone: [facility] 03-12-2024 09:44-0500 Diastolic blood pressure 68 mm[Hg] Ameena Larsen MD Work Phone: [facility] 03-12-2024 09:44-0500 Heart rate 70 /min Ameena Larsen MD Work Phone: [facility] 03-12-2024 09:44-0500 Respiratory rate 16 /min Ameena Larsen MD Work Phone: [facility] 03-12-2024 09:44-0500 SaO2% (BldA) [Mass fraction] 97 % Ameena Larsen MD Work Phone: [facility] 03-12-2024 09:44-0500 Systolic blood pressure 105 mm[Hg] Ameena Larsen MD Work Phone: [facility] 01-02-2024 13:12-0500 Body mass index (BMI) [Ratio] 30.07 kg/m2 Nohemy Davis APRN.CNP Work Phone: [facility] 01-02-2024 13:12-0500 Body weight 89.7 kg Nohemy Ryan LAY OUT CARPENTER.[employer] WEAVER Work Phone: [facility] 01-02-2024 13:12-0500 Diastolic blood pressure 78 mm[Hg] Nohemy Ryan LAY OUT CARPENTER.[employer] Work Phone: [facility] 01-02-2024 13:12-0500 Heart rate 72 /min Nohemy Ryan LAY OUT CARPENTER.[employer] Work Phone: [facility] 01-02-2024 13:12-0500 SaO2% (BldA) [Mass fraction] 98 % Nohemy Ryan LAY OUT CARPENTER.[employer] WE[employer]ER Work Phone: [facility] 01-02-2024 13:12-0500 Systolic blood pressure 118 mm[Hg] Nohemy Ryan LAY OUT CARPENTER.[employer] Work Phone: [facility] 11-21-2023 07:04-0400 Body mass index (BMI) [Ratio] 30.64 kg/m2 Nohemy Ryan LAY OUT CARPENTER.[employer] Work Phone: [facility] 11-21-2023 07:04-0400 Body weight 91.4 kg Nohemy Ryan LAY OUT CARPENTER.[employer] Work Phone: [facility] 11-21-2023 07:04-0400 Diastolic blood pressure 80 mm[Hg] Nohemy Ryan LAY OUT CARPENTER.[employer] Work Phone: [facility] 11-21-2023 07:04-0400 Heart rate 61 /min Nohemy Ryan LAY OUT CARPENTER.[employer] WE[employer] Work Phone: [facility] 11-21-2023 07:04-0400 SaO2% (BldA) [Mass fraction] 97 % Nohemy Ryan LAY OUT CARPENTER.[employer] Work Phone: [facility] 11-21-2023 07:04-0400 Systolic blood pressure 114 mm[Hg] Nohemy Ryan LAY OUT CARPENTER.[employer] Work Phone: [facility] 10-19-2023 15:59-0400 Body height 172.7 cm True Mayers MD Work Phone: [facility] 10-19-2023 15:59-0400 Body mass index (BMI) [Ratio] 31.17 kg/m2 True Mayers MD Work Phone: [facility] 10-19-2023 15:59-0400 Body weight 92.99 kg True Mayers MD Work Phone: [facility] 10-19-2023 15:59-0400 Diastolic blood pressure 79 mm[Hg] True Mayers MD Work Phone: [facility] 10-19-2023 15:59-0400 Heart rate 85 /min True Mayers MD Work Phone: [facility] 10-19-2023 15:59-0400 SaO2% (BldA) [Mass fraction] 97 % True Mayers MD Work Phone: [facility] 10-19-2023 15:59-0400 Systolic blood pressure 126 mm[Hg] True Mayers MD Work Phone: [facility] 08-15-2023 08:21-0400 Body height 170.2 cm Nohemy Ryan LAY OUT CARPENTER.[employer] WE[employer]ER Work Phone: [facility] 08-15-2023 08:21-0400 Body mass index (BMI) [Ratio] 32.73 kg/m2 Nohemy Ryan LAY OUT CARPENTER.[employer] WE[employer]ER Work Phone: [facility] 08-15-2023 08:21-0400 Body temperature 98.4 [degF] Nohemy Ryan LAY OUT CARPENTER.[employer]ER Work Phone: [facility] 08-15-2023 08:21-0400 Body weight 94.8 kg Nohemy Ryan LAY OUT CARPENTER.[employer] WE[employer]ER Work Phone: [facility] 08-15-2023 08:21-0400 Diastolic blood pressure 70 mm[Hg] Nohemy Ryan LAY OUT CARPENTER.[employer] Work Phone: [facility] 08-15-2023 08:21-0400 Heart rate 55 /min Nohemy Ryan LAY OUT CARPENTER.[employer] Work Phone: [facility] 08-15-2023 08:21-0400 Respiratory rate 12 /min Nohemy Davis APRN.[employer] WE[employer]ER Work Phone: [facility] 08-15-2023 08:21-0400 SaO2% (BldA) [Mass fraction] 97 % Nohemy Davis APRN.[employer] WE[employer]ER Work Phone: [facility] 08-15-2023 08:21-0400 Systolic blood pressure 112 mm[Hg] Nohemy Davis APRN.NEED[employer] WEAVER Work Phone: [facility] 06-16-2023 14:21-0400 Body weight 95.25 kg Konstantin River MD Work Phone: [facility] 06-16-2023 14:21-0400 Diastolic blood pressure 78 mm[Hg] Konstantin River MD Work Phone: [facility] 06-16-2023 14:21-0400 Systolic blood pressure 122 mm[Hg] Konstantin River MD Work Phone: [facility] 05-05-2023 14:25-0500 Body height 170.2 cm Konstantin River MD Work Phone: [facility] 05-05-2023 14:25-0500 Body weight 95.62 kg Konstantin River MD Work Phone: [facility] 05-05-2023 14:25-0500 Diastolic blood pressure 78 mm[Hg] Konstantin River MD Work Phone: [facility] 05-05-2023 14:25-0500 Systolic blood pressure 120 mm[Hg] Konstantin River MD Work Phone: [facility] 04-12-2023 09:21-0500 Body temperature 97.39 [degF] Aicha Kemp APRN.NEEDLE LOOM WEAVER Work Phone: [facility] 04-12-2023 09:21-0500 Body weight 98.7 kg Aicha Kemp APRN.NEEDLE LOOM WEAVER Work Phone: [facility] 04-12-2023 09:21-0500 Diastolic blood pressure 72 mm[Hg] Aicha Kemp APRN.NEEDLE LOOM WEAVER Work Phone: [facility] 04-12-2023 09:21-0500 Heart rate 56 /min Aicha Kemp APRN.NEEDLE LOOM WEAVER Work Phone: [facility] 04-12-2023 09:21-0500 Respiratory rate 16 /min Aicha Kemp APRN.NEEDLE LOOM WEAVER Work Phone: [facility] 04-12-2023 09:21-0500 SaO2% (BldA) [Mass fraction] 96 % Aicha Kemp APRN.NEEDLE LOOM WEAVER Work Phone: [facility] 04-12-2023 09:21-0500 Systolic blood pressure 116 mm[Hg] Aicha Kemp APRN.NEEDLE LOOM WEAVER Work Phone: [facility] 08-11-2022 15:24-0400 Body weight 92.99 kg Lenny Dumas MD Work Phone: [facility] 08-11-2022 15:24-0400 Diastolic blood pressure 72 mm[Hg] Lenny Dumas MD Work Phone: [facility] 08-11-2022 15:24-0400 Heart rate 81 /min Lenny Dumas MD Work Phone: [facility] 08-11-2022 15:24-0400 Respiratory rate 16 /min Lenny Dumas MD Work Phone: [facility] 08-11-2022 15:24-0400 SaO2% (BldA) [Mass fraction] 95 % Lenny Dumas MD Work Phone: [facility] 08-11-2022 15:24-0400 Systolic blood pressure 120 mm[Hg] Lenny Dumas MD Work Phone: [facility] 06-07-2022 14:18-0400 Body height 170.2 cm Matilde Ocasio MD Work Phone: [facility] 06-07-2022 14:18-0400 Body weight 94.12 kg Matilde Ocasio MD Work Phone: [facility] 06-07-2022 14:18-0400 Diastolic blood pressure 80 mm[Hg] Matilde Ocasio MD Work Phone: [facility] 06-07-2022 14:18-0400 Systolic blood pressure 120 mm[Hg] Matilde Ocasio MD Work Phone: [facility] 05-28-2022 11:15-0400 Body temperature 96.49 [degF] Lenny Dumas MD Work Phone: [facility] 05-28-2022 11:15-0400 Body weight 92.99 kg Lenny Dumas MD Work Phone: [facility] 05-28-2022 11:15-0400 Diastolic blood pressure 62 mm[Hg] Lenny Dumas MD Work Phone: [facility] 05-28-2022 11:15-0400 Heart rate 59 /min Lenny Dumas MD Work Phone: [facility] 05-28-2022 11:15-0400 Respiratory rate 18 /min Lenny Dumas MD Work Phone: [facility] 05-28-2022 11:15-0400 SaO2% (BldA) [Mass fraction] 97 % Lenny Dumas MD Work Phone: [facility] 05-28-2022 11:15-0400 Systolic blood pressure 104 mm[Hg] Lenny Dumas MD Work Phone: [facility] 05-04-2022 10:28-0500 Body height 170.2 cm Aida Hadley MD Work Phone: [facility] 05-04-2022 10:28-0500 Body weight 92.99 kg Aida Hadley MD Work Phone: [facility] 05-04-2022 10:28-0500 Diastolic blood pressure 73 mm[Hg] Aida Hadley MD Work Phone: [facility] 03-07-2023 10:28-0500 Heart rate 56 /min Aida Hadley MD Work Phone: [facility] 05-04-2022 10:28-0500 SaO2% (BldA) [Mass fraction] 98 % Aida Hadley MD Work Phone: [facility] 05-04-2022 10:28-0500 Systolic blood pressure 119 mm[Hg] Aida Hadley MD Work Phone: [facility] 03-31-2022 09:16-0500 Body weight 92.53 kg Nohemy Ryan LAY OUT CARPENTER.NEEDLE LOOM WEAVER Work Phone: [facility] 03-31-2022 09:16-0500 Diastolic blood pressure 76 mm[Hg] Nohemy Ryan LAY OUT CARPENTER.NEEDLE LOOM WEAVER Work Phone: [facility] 03-31-2022 09:16-0500 Heart rate 61 /min Nohemy Ryan LAY OUT CARPENTER.NEEDLE LOOM WEAVER Work Phone: [facility] 03-31-2022 09:16-0500 SaO2% (BldA) [Mass fraction] 98 % Nohemy Ryan LAY OUT CARPENTER.NEEDLE LOOM WEAVER Work Phone: [facility] 03-31-2022 09:16-0500 Systolic blood pressure 108 mm[Hg] Nohemy Ryan LAY OUT CARPENTER.NEEDLE LOOM WEAVER Work Phone: [facility] 03-16-2022 09:25-0500 Body temperature 98.49 [degF] Nohemy Ryan LAY OUT CARPENTER.NEEDLE LOOM WEAVER Work Phone: [facility] 03-16-2022 09:25-0500 Body weight 92.53 kg Nohemy Ryan LAY OUT CARPENTER.NEEDLE LOOM WEAVER Work Phone: [facility] 03-16-2022 09:25-0500 Diastolic blood pressure 68 mm[Hg] Nohemy Ryan LAY OUT CARPENTER.NEEDLE LOOM WEAVER Work Phone: [facility] 03-16-2022 09:25-0500 Heart rate 77 /min Nohemy Ryan LAY OUT CARPENTER.NEEDLE LOOM WEAVER Work Phone: [facility] 03-16-2022 09:25-0500 SaO2% (BldA) [Mass fraction] 98 % Nohemy Ryan LAY OUT CARPENTER.NEEDLE LOOM WEAVER Work Phone: [facility] 03-16-2022 09:25-0500 Systolic blood pressure 116 mm[Hg] Nohemy Davis LAY OUT CARPENTER.NEEDLE LOOM WEAVER Work Phone: [facility] 02-23-2022 14:00-0500 Body height 170.[address] Gabriela Shaffer Work Phone: [facility] [place] 02-23-2022 14:00-0500 Body mass index (BMI) [Ratio] 32.5 kg/m2 Dr. Gabriela Shaffer Work Phone: [facility] [place] 02-23-2022 14:00-0500 Body weight 94.[address] Gabriela Shaffer Work Phone: [facility] [place] 02-23-2022 14:00-0500 Diastolic blood pressure 68 mm[Hg] Dr. Gabriela Shaffer Work Phone: [facility] [place] 02-23-2022 14:00-0500 Heart rate 71 /min Dr. Gabriela Shaffer Work Phone: [facility] [place] 02-23-2022 14:00-0500 SaO2% (BldA) [Mass fraction] 95 % Dr. Gabriela Shaffer Work Phone: [facility] [place] 02-23-2022 14:00-0500 Systolic blood pressure 106 mm[Hg] Dr. Gabriela Shaffer Work Phone: [facility] [place] 02-15-2022 13:38-0500 Body height 170.[address] [facility] 02-15-2022 13:38-0500 Body weight 92.[address] [facility] 12-14-2021 09:00-0400 Body height 170.[address] Aba Del Toro Work Phone: [facility] [place] Work Phone: 12-14-2021 09:00-0400 Body mass index (BMI) [Ratio] 31.3 kg/m2 Dr. Aba Del Toro Work Phone: [facility] [place] Work Phone: 12-14-2021 09:00-0400 Body temperature 98 [degF] Dr. Aba Del Toro Work Phone: [facility] [place] Work Phone: 12-14-2021 09:00-0400 Body weight 90.[address] Aba Del Toro Work Phone: [facility] [place] Work Phone: 12-14-2021 09:00-0400 Diastolic blood pressure 82 mm[Hg] Dr. Aba Del Toro Work Phone: [facility] [place] Work Phone: 12-14-2021 09:00-0400 Heart rate 78 /min Dr. Aba Del Toro Work Phone: [facility] [place] Work Phone: 12-14-2021 09:00-0400 Respiratory rate 14 /min Dr. Aba Del Toro Work Phone: [facility] [place] Work Phone: 12-14-2021 09:00-0400 SaO2% (BldA) [Mass fraction] 97 % Dr. Aba Del Toro Work Phone: [facility] [place] Work Phone: 12-14-2021 09:00-0400 Systolic blood pressure 116 mm[Hg] Dr. Aba Del Toro Work Phone: [facility] [place] Work Phone: 12-05-2021 08:17-0400 Body temperature 96.91 [degF] Brianna Tijerina APRN.NEEDLE LOOM WEAVER Work Phone: [facility] 12-05-2021 08:17-0400 Body weight 92.08 kg Brianna Tijerina LAY OUT CARPENTER.NEEDLE LOOM WEAVER Work Phone: [facility] 12-05-2021 08:17-0400 Diastolic blood pressure 72 mm[Hg] Brianna Tijerina LAY OUT CARPENTER.NEEDLE LOOM WEAVER Work Phone: [facility] 12-05-2021 08:17-0400 Heart rate 64 /min Brianna Tijerina LAY OUT CARPENTER.NEEDLE LOOM WEAVER Work Phone: [facility] 12-05-2021 08:17-0400 Respiratory rate 16 /min Brianna Tijerina LAY OUT CARPENTER.NEEDLE LOOM WEAVER Work Phone: [facility] 12-05-2021 08:17-0400 SaO2% (BldA) [Mass fraction] 97 % Brianna Tijerina LAY OUT CARPENTER.NEEDLE LOOM WEAVER Work Phone: [facility] 12-05-2021 08:17-0400 Systolic blood pressure 126 mm[Hg] Brianna Tijerina LAY OUT CARPENTER.NEEDLE LOOM WEAVER Work Phone: [facility] 11-30-2021 13:52-0400 Body height 170.2 cm Evelin Laffey LAY OUT CARPENTER.NEEDLE LOOM WEAVER Work Phone: [facility] 11-30-2021 13:52-0400 Body weight 92.08 kg Evelin Laffey LAY OUT CARPENTER.NEEDLE LOOM WEAVER Work Phone: [facility] 11-30-2021 13:52-0400 Diastolic blood pressure 87 mm[Hg] Evelin Laffey LAY OUT CARPENTER.NEEDLE LOOM WEAVER Work Phone: [facility] 11-30-2021 13:52-0400 Heart rate 83 /min Evelin Laffey LAY OUT CARPENTER.NEEDLE LOOM WEAVER Work Phone: [facility] 11-30-2021 13:52-0400 SaO2% (BldA) [Mass fraction] 98 % Evelin Laffey LAY OUT CARPENTER.NEEDLE LOOM WEAVER Work Phone: [facility] 11-30-2021 13:52-0400 Systolic blood pressure 137 mm[Hg] Evelin Laffey LAY OUT CARPENTER.NEEDLE LOOM WEAVER Work Phone: [facility] 05-29-2021 10:49-0400 Body height 170.2 cm Madeleine Frazier PA-C Work Phone: [facility] 05-29-2021 10:49-0400 Body weight 92.44 kg Madeleine Freddie PA-C Work Phone: [facility] 05-29-2021 10:49-0400 Diastolic blood pressure 63 mm[Hg] Madeleine Freddie PA-C Work Phone: [facility] 05-29-2021 10:49-0400 Heart rate 67 /min Madeleine Freddie PA-C Work Phone: [facility] 05-29-2021 10:49-0400 SaO2% (BldA) [Mass fraction] 97 % Madeleine Freddie PA-C Work Phone: [facility] 05-29-2021 10:49-0400 Systolic blood pressure 117 mm[Hg] Madeleine Freddie PA-C Work Phone: [facility] 10-27-2016 13:20-0400 Heart rate 85 /min Yvon Salazar MD [facility] Work Phone: 10-27-2016 09:35-0400 BMI (Body Mass Index) 29.04 kg/m2 [facility] Work Phone: 10-27-2016 09:35-0400 BP Diastolic 70 mm[Hg] [facility] Work Phone: 10-27-2016 09:35-0400 BP Systolic 112 mm[Hg] [facility] Work Phone: 10-27-2016 09:35-0400 Height 172.72 cm [facility] Work Phone: 10-27-2016 09:35-0400 Respiratory Rate 18 /min [facility] Work Phone: 10-27-2016 09:35-0400 Weight 86.64 kg Geo Mcneil [facility] Work Phone: 10-11-2016 14:32-0400 BMI (Body Mass Index) 28.73 kg/m2 Jasmyn Ashley MD [facility] Work Phone: 10-11-2016 14:32-0400 Body Temperature 98.7 [degF] Jasmyn Ashley MD [facility] Work Phone: 10-11-2016 14:32-0400 BP Diastolic 79 mm[Hg] Jasmyn Ashley MD [facility] Work Phone: 10-11-2016 14:32-0400 BP Systolic 111 mm[Hg] Jasmyn Ashley MD [facility] Work Phone: 10-11-2016 14:32-0400 Height 172.72 cm Jasmyn Ashley MD [facility] Work Phone: 10-11-2016 14:32-0400 Pulse (Heart Rate) 84 /min Jasmyn Ashley MD [facility] Work Phone: 10-11-2016 14:32-0400 Weight 85.73 kg Jasmyn Ashley MD [facility] Work Phone: 12-27-2011 15:54-0400 Respiratory Rate 18 /min Jasmyn Ashley MD [facility] Work Phone: Encounters Encounter Date Encounter Type Care Provider Facility Start: 01-30-2025 ambulatory Jasmyn Weii ty:[facility] Start: 12-25-2024 ambulatory Lenny D Talampas Facilit y:[facility] Start: 12-24-2024 End: 12-24-2024 ambulatory EDEL SEBILLE Facility:[facility] Start: 12-05-2024 End: 12-05-2024 ambulatory LENNY D TALAMPAS Facility:[facility] Start: 12-03-2024 End: 12-03-2024 ambulatory LENNY D TALAMPAS Facility:[facility] Start: 12-03-2024 End: 12-03-2024 ambulatory LENNY D TALAMPAS Facility:[facility] Start: 11-30-2024 End: 11-30-2024 ambulatory LENNY D TALAMPKENDALL Facility:[facility] Start: 11-29-2024 ambulatory LENNY D GREGGAMPKENDALL Facilit y:[facility] Start: 11-20-2024 End: 11-20-2024 ambulatory LENNY D GREGGAMPKENDALL Facility:[facility] Start: 11-08-2024 End: 11-08-2024 Follow-up encounter Ben Franklin APRN.NEEDLE LOOM WEAVER Work Phone: Pulmonary Medicine Start: 11-06-2024 End: 11-06-2024 Telephone encounter Lenny Dumas MD Work Phone: [facility] [place] Comment on above: Appointment; Faxed [facility] Surgery Consult ([facility] Start: 11-06-2024 End: 11-06-2024 ambulatory Pulm Lab [facility] Work Phone: [facility]ULM [facility] Comment on above: Spirometry Start: 11-06-2024 End: 11-06-2024 Patient encounter procedure [facility] Work Phone: [facility] Start: 11-01-2024 End: 11-01-2024 Patient encounter procedure Ben Franklin APRN.NEEDLE LOOM WEAVER Work Phone: Pulmonary Medicine Comment on above: Encounter for screen ing for lung cancer (Primary Dx); Former tobacco use; Shortness of breath Start: 11-01-2024 End: 11-01-2024 ambulatory LENNY D GREGGAMPKENDALL Facility:[facility] Start: 10-17-2024 ambulatory LENNY D GREGGAMPAS Facilit y:[facility] Start: 10-17-2024 End: 10-17-2024 Subsequent hospital visit by physician Soha [facility] Work Phone: Radiology Comment on above: Spinal stenosis in c ervical region [M48.02] Start: 10-17-2024 End: 10-17-2024 Patient encounter procedure Suzie Suarez PA-C Work Phone: [facility] [place] Comment on above: Spinal stenosis in c ervical region (Primary Dx); Radiculopathy, cervical region Start: 10-17-2024 End: 10-17-2024 ambulatory LENNY DUMAS Facility:[facility] Start: 09-26-2024 End: 09-26-2024 Office outpatient visit 25 minutes Lenny Dumas MD Work Phone: [facility] [place] Comment on above: Anxiety (Primary Dx) ; Obesity, Class I, BMI 30-34.9; Dermatitis; Cervical disc disease; Cervical disc herniation Start: 09-26-2024 End: 09-26-2024 ambulatory LENNY DUMAS Facility:[facility] Start: 09-19-2024 ambulatory Nohemy Davis CLERK RATING Facilit y:[facility] Start: 09-19-2024 Non-patient / Non-visit Dr. Shyla MCCLOUD -[facility] Start: 09-19-2024 End: 09-19-2024 Patient encounter procedure Nohemy Davis CLERK RATING-C -Cat Scan [facility] Work Phone: Start: 09-19-2024 End: 09-19-[address] Lenny Dumas MD Work Phone: -Cat Scan [facility] Start: 09-11-2024 End: 09-11-2024 ambulatory LENNY DUMAS Facility:[facility] Start: 09-06-2024 End: 09-06-[address] Lenny Dumas MD Work Phone: -Outpatient Bone Densitometry Start: 09-06-2024 End: 09-06-2024 Patient encounter procedure Nohemy Davis CLERK RATING-C -Outpatient Bone Densitometry Work Phone: Start: 09-06-2024 End: 09-06-2024 ambulatory Nohemy Davis CLERK RATING Facility:[facility] Start: 09-05-2024 End: 09-07-2024 Telephone encounter Nohemy Davis LAY OUT CARPENTER.NEEDLE LOOM WEAVER Work Phone: [facility] [place] Comment on above: [facility] Pre-Certificatio n Start: 08-24-2024 End: 09-06-2024 Chart abstracting Nic Sampson MD Work Phone: Neurology Start: 08-21-2024 End: 08-21-2024 Get Medical Advice [facility] Provider [facility] [place] Comment on above: orders for updated t ests Start: 08-20-2024 End: 08-20-2024 Office outpatient visit 25 minutes Belinda Jenkins MD Work Phone: [facility] Comment on above: Cervical radiculopat hy (Primary Dx) Start: 08-20-2024 End: 08-20-2024 ambulatory [facility] Start: 08-14-2024 End: 08-27-2024 Get Medical Advice Lenny Dumas MD Work Phone: [facility] [place] Comment on above: order tests/scans pl ease. Start: 08-13-2024 End: 08-14-2024 Telephone encounter Samantha Chiquita Garnica CNP Work Phone: [facility] Comment on above: Appointment Request; Results Start: 08-10-2024 End: 08-10-2024 Subsequent hospital visit by physician Belidna Jenkins MD Work Phone: [facility] Comment on above: Cervical radiculopat hy Start: 08-10-2024 End: 08-10-2024 ambulatory [facility] Start: 08-09-2024 End: 08-09-2024 Patient encounter procedure Herson Zhang OD Work Phone: Ophthalmology Comment on above: Eczematous dermatiti s of upper and lower eyelids of both eyes (Primary Dx); Vitreous floaters of both eyes; Marfan's syndrome with ocular manifestation (HCC); Glaucoma suspect of both eyes; Pseudophakia Start: 08-09-2024 End: 08-09-2024 ambulatory HERSON ZHANG Facility[facility] Start: 07-20-2024 End: 07-20-2024 Office outpatient visit 25 minutes Lenny Dumas MD Work Phone: [facility] [place] Comment on above: Other eczema (Primar y Dx); Lipoma of skin and subcutaneous tissue; Cervical radiculopathy; Anxiety; Primary hypertension; Class 1 obesity due to excess calories without serious comorbidity with body mass index (BMI) of 32.0 to 32.9 in adult; Elevated fasting glucose Start: 07-20-2024 End: 07-20-2024 ambulatory LENNY DUMAS Facility:[facility] Start: 07-19-2024 End: 07-19-2024 ambulatory HERSON ZHANG Facility:[facility] Start: 07-11-2024 End: 07-15-2024 Patient encounter procedure True Mayers MD Work Phone: Cardiology Comment on above: Marfan's syndrome (H CC) (Primary Dx); Aortic root dilation; Primary hypertension; Hypercholesterolemia; Family history of Marfan syndrome Start: 07-11-2024 End: 07-11-2024 ambulatory TRUE MAYERS Facility:[facility] Start: 07-11-2024 End: 07-11-2024 ambulatory TRUE MAYERS Facility:[facility] Start: 07-02-2024 End: 07-02-2024 Office outpatient new 45 minutes Belinda Jenkins MD Work Phone: [facility] Comment on above: Cervical radiculopat hy (Primary Dx) Start: 07-02-2024 End: 07-02-2024 ambulatory BELINDA JENKINS [facility] Start: 06-27-2024 End: 06-27-2024 Emergency department patient visit Dr. Alton Rodriguez DO -Emergency Department Work Phone: Start: 06-27-2024 End: 06-27-2024 Patient encounter procedure Gabby Hughes APRN.CNP Work Phone: [facility] Comment on above: Numbness and tinglin g of right face (Primary Dx) Start: 06-27-2024 End: 06-27-2024 ambulatory LENNY DUMAS Facility[facility] Start: 06-26-2024 End: 06-26-2024 ambulatory LENNY DUMAS Facility[facility] Start: 06-26-2024 Encounter for antibo dy response examination LENNY DUMAS [facility] Start: 06-06-2024 End: 08-27-2024 Get Medical Advice Lenny Dumas MD Work Phone: [facility] [place] Comment on above: Please order Start: 06-06-2024 End: 08-27-2024 Patient encounter status Lenny Dumas MD Work Phone: [facility] Work Phone: Start: 06-05-2024 End: 08-05-2024 Follow-up encounter Nohemy Davis APRN.NEEDLE LOOM WEAVER Work Phone: [facility] [place] Start: 06-01-2024 End: 06-01-2024 ambulatory LENNY DUMAS Facility[facility] Start: 05-31-2024 Registered Referred Self Referred -[facility] Work Phone: Start: 05-31-2024 ambulatory Self Referred Facility: [facility] Start: 05-29-2024 End: 05-29-2024 Office outpatient visit 25 minutes Lenny Dumas MD Work Phone: [facility] [place] Comment on above: Primary hypertension (Primary Dx); Anxiety; Daytime sleepiness; Snoring; Marfan's syndrome (HCC) Start: 05-29-2024 End: 05-29-2024 ambulatory LENNY DUMAS Facility:[facility] Start: 05-14-2024 End: 07-14-2024 Follow-up encounter Marium Chua APRN.NEEDLE LOOM WEAVER Work Phone: OB/Gynecology Start: 05-11-2024 End: 05-11-2024 Patient encounter procedure Konstantin River MD Work Phone: OB/Gynecology Comment on above: Encounter for gyneco logical examination (general) (routine) without abnormal findings (Primary Dx); Encounter for screening mammogram for breast cancer Start: 05-11-2024 End: 05-11-2024 Patient encounter status Konstantin River MD Work Phone: [facility] Start: 05-11-2024 End: 05-11-2024 ambulatory KONSTANTIN RIVER Facility:[facility] Start: 05-11-2024 End: 05-11-2024 Subsequent hospital visit by physician Screen Mammo [facility] Comment on above: Encounter for screen ing mammogram for breast cancer [Z12.31] Start: 03-22-2024 End: 03-22-2024 ambulatory Environmental Systems Coordinator [facility] [employer] Work Phone: OB/Gynecology Start: 03-22-2024 End: 03-22-2024 Patient encounter procedure Us Tech 1 [facility] OB/Gynecology Start: 03-12-2024 End: 03-12-2024 Telephone encounter Lenny Dmuas MD Work Phone: [facility] [place] Comment on above: Patient Update Start: 03-12-2024 End: 03-12-2024 ambulatory AMEENA LARSEN Facility:[facility] Start: 03-12-2024 End: 03-12-2024 Office outpatient visit 25 minutes Ameena Larsen MD Work Phone: [facility] [place] Comment on above: Alopecia areata (Precious kurt Dx); Anxiety; Cervical radiculopathy at C6 Start: 03-01-2024 End: 03-01-2024 Refill True Mayers MD Work Phone: Cardiology Comment on above: Refill Request Start: 02-09-2024 End: 02-09-2024 E-mail encounter from caregiver Delta Willis PA-C Work Phone: [facility] Start: 02-09-2024 End: 02-09-2024 Follow-up encounter Delta Willis PA-C Work Phone: [facility] Comment on above: Actionable Findings Follow-Up Reminder Start: 01-02-2024 End: 01-02-2024 ambulatory Nohemy Davis APRN.NEEDLE LOOM WEAVER Work Phone: Internal Medicine [place] Comment on above: Dizziness Start: 01-02-2024 End: 01-02-2024 Patient encounter procedure Nohemy Davis APRN.NEEDLE LOOM WEAVER Work Phone: Internal Medicine [place] Comment on above: Cervical radiculopat hy (Primary Dx); Depression with anxiety; Medication side effects Start: 11-21-2023 End: 11-21-2023 Telephone encounter Nohemy Davis APRN.NEEDLE LOOM WEAVER Work Phone: [facility] [place] Comment on above: Orders Start: 11-21-2023 End: 11-21-2023 Patient encounter procedure Nohemy Davis APRN.NEEDLE LOOM WEAVER Work Phone: [facility] [place] Comment on above: Depression with anxi ety (Primary Dx); Grief; Cervical radiculopathy; Cervical disc herniation; Gastroesophageal reflux disease without esophagitis; LPRD (laryngopharyngeal reflux disease) Start: 11-08-2023 End: 11-08-2023 ambulatory Brianna O'Pawel PT [facility] Comment on above: Cervical radiculopat hy (Primary Dx) Start: 10-19-2023 End: 11-04-2023 Patient encounter procedure True Mayers MD Work Phone: Cardiology Comment on above: Marfan's syndrome (P rimary Dx); Aortic root dilation (HCC); Family history of Marfan syndrome Start: 10-19-2023 End: 10-19-2023 Subsequent hospital visit by physician Kerrie Parkinson ([facility]) Work Phone: Radiology Comment on above: Marfan's syndrome [Q 87.40] Start: 10-14-2023 End: 10-14-2023 ambulatory Brianna O'Pawel PT [facility] Comment on above: Cervical radiculopat hy (Primary Dx) Start: 10-12-2023 End: 10-12-2023 Patient encounter procedure Sherron Lancaster MD Work Phone: Ophthalmology Comment on above: Vitreous floaters of both eyes (Primary Dx); Marfan's syndrome with ocular manifestation; Glaucoma suspect of both eyes; Pseudophakia Start: 10-05-2023 Orders Only True weeks MD Work Phone: Cardiology Comment on above: Marfan's syndrome (P rimary Dx); Aortic root dilation (HCC); Family history of Marfan syndrome; Chest pain, unspecified type Start: 08-15-2023 End: 08-15-2023 Subsequent hospital visit by physician Xr [facility] [place] Work Phone: Radiology Comment on above: Cervical radiculopat hy [M54.12] Start: 08-15-2023 End: 08-15-2023 Patient encounter procedure Nohemy Davis APRN.CNP Work Phone: Internal Medicine [place] Comment on above: Cervical radiculopat hy (Primary Dx); Cervical disc herniation; Anxiety; Depression with anxiety; Moderate major depression (HCC) Start: 06-28-2023 ambulatory Andi Guerin [facility] [place] Start: 06-28-2023 Patient encounter procedure Andi Guerin MA [facility] [place] Comment on above: Population Health Na vigation Outreach ([facility] CURRENT ROSTER workbench - AWV, HCC gap closure - [place] [facility]) Start: 06-16-2023 End: 06-16-2023 Patient encounter procedure Konstantin River MD Work Phone: OB/Gynecology Comment on above: Menorrhagia with reg ular cycle (Primary Dx); Cyst of ovary, unspecified laterality Start: 05-19-2023 Telephone encounter Konstantin mayes MD Work Phone: OB/Gynecology Comment on above: Results Start: 05-16-2023 End: 05-16-2023 Subsequent hospital visit by physician [facility] Work Phone: Radiology Comment on above: Pelvic pain in femal e [R10.2] Start: 05-05-2023 End: 05-05-2023 Patient encounter procedure Konstantin River MD Work Phone: OB/Gynecology Comment on above: Encounter for gyneco logical examination (general) (routine) without abnormal findings (Primary Dx); Encounter for screening mammogram for breast cancer; Dense breast tissue; Screening for cervical cancer; Special screening examination for human papillomavirus (HPV); Pelvic pain in female; Screen for STD (sexually transmitted disease) Start: 05-05-2023 End: 05-05-2023 Patient encounter status Konstantin River MD Work Phone: [facility] Start: 04-22-2023 Refill Lenny ashley MD Work Phone: Internal Medicine [place] Comment on above: Refill Request Start: 04-21-2023 ambulatory Lenny ashley MD Work Phone: Internal Medicine [place] Comment on above: Rx Refill Request Start: 04-15-2023 ambulatory Andi Porras (Ps s) [facility] [place] Comment on above: Population Health Na vigation Outreach ([facility]) Start: 04-12-2023 End: 04-12-2023 Patient encounter procedure Aicha Kemp APRN.NEEDLE LOOM WEAVER Work Phone: [place] [facility] Comment on above: Urinary frequency (P rimary Dx) Start: 04-07-2023 Documentation procedure Mammog esmer Coordinator [facility] Start: 04-07-2023 Letter encounter Mammography Coordinator [facility] Department Start: 04-07-2023 End: 04-07-2023 Subsequent hospital visit by physician Screen Mammo [facility] Comment on above: Screening mammogram for breast cancer [Z12.31] Start: 01-04-2023 End: 01-04-2023 Subsequent hospital visit by physician Us [facility] Work Phone: Radiology Comment on above: Thyromegaly [E01.0] Start: 12-07-2022 Telephone encounter Lenny donovan MD Work Phone: Internal Medicine [place] Comment on above: Orders Start: 08-11-2022 End: 08-11-2022 Subsequent hospital visit by physician Xr [facility] [place] Work Phone: Radiology Comment on above: Sternal pain [R07.89 ] Start: 08-11-2022 End: 08-11-2022 Office outpatient visit 25 minutes Lenny Dumas MD Work Phone: Internal Medicine [place] Comment on above: Sternal pain (Primar y Dx); SOB (shortness of breath); Chronic fatigue; Chronic midline back pain, unspecified back location; Class 1 obesity due to excess calories with body mass index (BMI) of 32.0 to 32.9 in adult, unspecified whether serious comorbidity present; Abdominal bloating; Moderate major depression (HCC) Start: 06-11-2022 End: 06-11-2022 Subsequent hospital visit by physician Mri Radio [facility] (I-Stat/1.5t) Work Phone: Radiology Comment on above: Cervicalgia [M54.2] Start: 06-07-2022 End: 06-07-2022 Patient encounter procedure Matilde Ocasio MD Work Phone: OB/Gynecology Comment on above: Encounter for gyneco logical examination (general) (routine) without abnormal findings (Primary Dx) Start: 06-07-2022 End: 06-07-2022 Patient encounter status Matilde Ocasio MD Work Phone: OB/Gynecology Start: 05-28-2022 End: 05-28-2022 Office outpatient visit 25 minutes Lenny Dumas MD Work Phone: Internal Medicine [place] Comment on above: NAFLD (nonalcoholic fatty liver disease) (Primary Dx); Cyst of right ovary; Left knee pain, unspecified chronicity; Cervical radiculopathy; Class 1 obesity due to excess calories with body mass index (BMI) of 32.0 to 32.9 in adult, unspecified whether serious comorbidity present Start: 05-26-2022 End: 05-26-[address] Gabriela Shaffer Work Phone: [facility] Work Phone: Start: 05-26-2022 End: 05-26-[address] Gabriela Shaffer Work Phone: [facility] Start: 05-04-2022 End: 05-04-2022 Patient encounter procedure Aida Hadley MD Work Phone: Neurology Comment on above: Cervicalgia; Marfan's syndrome; Chronic mixed headache syndrome Start: 04-30-2022 Refill True weeks MD Work Phone: Cardiology Comment on above: Refill Request Start: 04-01-2022 End: 04-01-2022 Patient encounter procedure Cuba Marti MD Work Phone: Orthopaedics Comment on above: Ganglion cyst; Cervicalgia Start: 03-31-2022 End: 03-31-2022 Patient encounter procedure Nohemy aDvis APRN.NEEDLE LOOM WEAVER Work Phone: Internal Medicine [place] Comment on above: Ganglion cyst (Prima ry Dx); Anxiety; Cervicalgia; Cervical disc herniation; Cervical nerve root impingement; Cervical radiculopathy; Chronic mixed headache syndrome; Gastroesophageal reflux disease without esophagitis; Marfan's syndrome; Aortic root dilation (HCC); Encounter for therapeutic drug monitoring; Screening for lipid disorders Start: 03-16-2022 End: 03-16-2022 Patient encounter procedure Nohemy Davis APRN.NEEDLE LOOM WEAVER Work Phone: Internal Medicine [place] Comment on above: Acute cystitis with hematuria (Primary Dx); Urinary frequency; Ganglion cyst Start: 02-23-2022 End: 02-23-[address] Gabriela Shaffer Work Phone: [facility] Gastroenterology Start: 02-15-2022 End: 02-15-[address] Nutrition Therapy Comment on above: Assessment; Patient Education Start: 12-25-2021 [facility] [place] Comment on above: Population Health Na vigation Outreach ([facility]) Start: 12-16-2021 End: 12-16-[address] Aba Del Toro Work Phone: [facility] Work Phone: Start: 12-16-2021 End: 12-16-[address] Aba Del Toro Work Phone: [facility]-Outpatient Breast Imaging Start: 12-14-2021 Telephone encounter Aba willis MD Work Phone: Internal Medicine [place] Comment on above: Patient Request Start: 12-14-2021 End: 12-14-[address] Aba Del Toro Work Phone: [facility] Internal Medicine Start: 12-07-2021 Telephone encounter Shellie Jimenez APRN.NEEDLE LOOM WEAVER Work Phone: [place] [facility] Comment on above: Results, Lab Start: 12-05-2021 End: 12-05-2021 Patient encounter procedure Brianna Brent ESPINOZA Work Phone: [place] [facility] Comment on above: Urinary frequency (P rimary Dx); Burning with urination; Gastroesophageal reflux disease, unspecified whether esophagitis present Start: 12-03-2021 Telephone encounter True Mayers MD Work Phone: Cardiology Comment on above: Appointment Start: 11-30-2021 End: 11-30-2021 Patient encounter procedure Evelin Flower APRN.CNP Work Phone: Cardiology Comment on above: Marfan's syndrome (P rimary Dx) Start: 10-15-2021 Refill True weeks MD Work Phone: Cardiology Comment on above: Refill Request Start: 08-27-2021 ambulatory Lucero Lainez [facility] [place] Comment on above: Population Health Na vigation Outreach (HCC) Start: 08-12-2021 ambulatory Aba santamaria MD Work Phone: Internal [facility] [place] Start: 05-29-2021 ambulatory Madeleine RUELAS-C Work Phone: Rheumatology Comment on above: Iremembered a couple other things... Start: 05-29-2021 End: 05-29-2021 Patient encounter procedure Madeleine Riojasser PA-C Work Phone: Rheumatology Comment on above: Multiple joint pain (Primary Dx); Fatigue, unspecified type; Marfan's syndrome; Hair loss; Myalgia; Subjective weakness; Cervical radiculopathy; Pica in adults Start: 05-27-2021 Telephone encounter Emily Espinoza APRN.CNP Work Phone: [place] [facility] Comment on above: Scheduling Start: 04-17-2021 End: 04-17-2021 Discharged Recurring [facility]-Massage Therapy, [facility] Start: 04-16-2021 Registered Recurring [facility]-Physical Therapy Procedures Date Procedure Procedure Detail Performing Clinician Start: 11-06-2024 Nitric oxide gas determination Benwalter Franklin LAY OUT CARPENTER.NEEDLE LOOM WEAVER Work Phone: Start: 11-06-2024 Brncdilat rspse spmtry pre&post-brncdilat admn Benwalter Franklin LAY OUT CARPENTER.NEEDLE LOOM WEAVER Work Phone: Start: 10-17-2024 Radex spine cervical 4 or 5 views Suzie Suarez PA-C Work Phone: Start: 09-19-2024 CT angiography of coronary arteries Dr. Lenny Dumas MD Work Phone: Start: 09-11-2024 Lipid 1996 panel - Serum or Plasma Lenny Dumas MD Work Phone: Start: 09-06-2024 Body Composition - Initial Dr. Lenny jarvis MD Work Phone: Start: 08-20-2024 Follow-up visit Follow-up BELINDA JENKINS Start: 06-27-2024 X-ray of chest, PA and lateral views Dr. Lenny Dumas MD Work Phone: Start: 06-27-2024 CT of head without contrast Dr. Lenny donovan MD Work Phone: Start: 06-27-[address] Lenny Dumas MD Work Phone: Start: 06-01-2024 Lipid 1996 panel - Serum or Plasma Gabby Hughes LAY OUT CARPENTER.NEEDLE LOOM WEAVER Work Phone: Start: 05-11-2024 Mammography Belinda Jenkins MD Work Phone: Start: 03-22-2024 Us pelvic nonobstetric real-time image complete Konstantin River MD Work Phone: Start: 10-19-2023 Ct angiography chest w/contrast/noncontrast Beverly Dawson MD Work Phone: Start: 08-15-2023 Radex spine cervical 4 or 5 views Nohemy Davis LAY OUT CARPENTER.NEEDLE LOOM WEAVER Work Phone: Start: 07-06-2023 Lipid 1996 panel - Serum or Plasma Nohemy Davis LAY OUT CARPENTER.NEEDLE LOOM WEAVER Work Phone: Start: 06-16-2023 UA DIP,URINE HCG (POC) Konstantin River MD Work Phone: Start: 05-05-2023 Microscopic observation [Identifier] in Cervix by Cyto stain Belinda Jenkins MD Work Phone: Start: 04-12-2023 Urnls dip stick/tablet rgnt auto w/o microscopy Shellie Leyva LAY OUT CARPENTER.NEEDLE LOOM WEAVER Work Phone: Start: 04-07-2023 Screening digital breast tomosynthesis bi Lenny Dumas MD Work Phone: Start: 01-04-2023 Us soft tissue head & neck real time imge docm Lenny Dumas MD Work Phone: Start: 12-13-2022 Lipid 1996 panel - Serum or Plasma Mri (I-Stat/1.5t) Work Phone: Start: 08-11-2022 Radiologic exam chest 2 views Lenny Dumas MD Work Phone: Start: 06-11-2022 Mri spinal canal cervical w/o contrast matrl Nohemy Davis LAY OUT CARPENTER.NEEDLE LOOM WEAVER Work Phone: Start: 05-26-2022 Computed tomography of abdomen and pelvis with contrast Dr. Gabriela Shaffer Work Phone: Start: 04-02-2022 Lipid 1996 panel - Serum or Plasma Lenny Dumas MD Work Phone: Start: 03-16-2022 Urnls dip stick/tablet rgnt auto w/o microscopy Nohemy Davis LAY OUT CARPENTER.NEEDLE LOOM WEAVER Work Phone: Start: 12-16-2021 End: 12-16-[address] Aba jensen Work Phone: Start: 12-05-2021 Urnls dip stick/tablet rgnt auto w/o microscopy Brianna Tijerina LAY OUT CARPENTER.NEEDLE LOOM WEAVER Work Phone: Start: 07-07-2020 Mammography Emily Older LAY OUT CARPENTER.NEEDLE LOOM WEAVER Work Phone: Start: 12-13-2019 Colonoscopy Emily Older LAY OUT CARPENTER.NEEDLE LOOM WEAVER Work Phone: Start: 10-27-2016 End: 10-27-2016 Dietary management education, guidance, and counseling Yvon Salazar MD Start: 10-27-2016 End: 10-27-2016 Electrocardiogram, complete Yvon blevins MD Work Phone: Start: 10-11-2016 Lipid 1996 panel - Serum or Plasma Belinda Jenkins MD Work Phone: Start: 10-11-2016 End: 11-03-2016 *BMP Jasmyn Su Work Phone: Start: 10-11-2016 End: 11-03-2016 *CBC with Differential Jasmyn causey MD Work Phone: Start: 10-11-2016 End: 11-05-2016 25-Hydroxyvitamin D2+25-Hydroxyvitamin D3 [Mass/volume] in Serum or Plasma Jasmyn Ashley MD Work Phone: Start: 10-11-2016 End: 11-03-2016 HbA1c Jasmyn Su Work Phone: Start: 10-11-2016 History and physical examination, annual for health maintenance Annual physical Jasmyn Ashley MD Start: 10-11-2016 End: 11-03-2016 Lipid panel [AGGREGATE] Jasmyn vang MD Work Phone: Start: 10-11-2016 Thyroid disorder screening Screening for thyroid disorder Jasmyn Ashley MD Start: 10-11-2016 End: 11-03-2016 Thyroid stimulating hormone (TSH) Jasmyn Ashley MD Work Phone: Start: 10-11-2016 End: 11-03-2016 Thyroxine (T4) free Jasmyn Su Work Phone: Start: 12-27-2011 End: 01-06-2012 Echocardiography Alex Mcginnis MD Start: 12-27-2011 End: 12-27-2011 Follow Up Appt 3 months Alex Mcginnis MD Start: 06-10-2011 End: 06-10-2011 Follow Up Appt 6 months Alex Mcginnis MD Start: 06-10-2011 End: 12-08-2011 Mri angio, abdom w orw/o dye Alex Mcginnis MD Plan of Treatment Date Care Activity Detail Author Start: 2041 RSV Immunization for Adults (1 - 1-dose 75+ series) RSV Immunization for Adults (1 - 1-dose 75+ series) [facility] Start: 12-15-2031 DTaP/Tdap/Td Vaccines (3 - Td or Tdap) DTaP/Tdap/Td Vaccines (3 - Td or Tdap) [facility] Start: 12-15-2031 Urine microalbumin profile [facility] Start: 09-11-2029 Lipid panel Lipid Screening [facility] Start: 06-01-2029 Lipid panel Lipid Screening [facility] Start: 01-16-2029 Colonoscopy COLONOSCOPY [facility] Start: 01-16-2029 COLORECTAL CANCER SCREENING COLORECTAL CANCER SCREENING [facility] Start: 01-16-2029 Screening for malignant neoplasm of colon [facility] Start: 07-05-2028 Lipid panel Lipid Screening [facility] Start: 05-04-2028 Screening for malignant neoplasm of cervix [facility] Start: 12-14-2027 Lipid 1996 panel - Serum or Plasma Lipid Screening [facility] Start: 12-14-2027 Lipid panel Lipid Screening [facility] Start: 09-12-2027 Diabetes Screening Diabetes Screening [facility] Start: 06-02-2027 Diabetes Screening Diabetes Screening [facility] Start: 04-02-2027 Lipid 1996 panel - Serum or Plasma Lipid Screening [facility] Start: 04-02-2027 LIPID SCREEN LIPID SCREEN [facility] Start: 07-05-2026 Diabetes Screening Diabetes Screening [facility] Start: 05-04-2026 Screening for malignant neoplasm of cervix [facility] Start: 02-02-2027 LIPID SCREEN LIPID SCREEN [facility] Start: 12-13-2025 Diabetes Screening Diabetes Screening [facility] Start: 09-26-2025 Annual PCP Team Chronic Disease Visit Annual PCP Team Chronic Disease Visit [facility] Start: 07-25-2025 HPV TESTING HPV TESTING [facility] Start: 07-25-2025 PAP TESTING PAP TESTING [facility] Start: 07-25-2025 Screening for malignant neoplasm of cervix [facility] Start: 07-20-2025 Annual PCP Team Chronic Disease Visit Annual PCP Team Chronic Disease Visit [facility] Start: 07-20-2025 BP Controlled (<130/80) BP Controlled (<130/80) [facility] Start: 07-11-2025 BP Controlled (<130/80) BP Controlled (<130/80) [facility] Start: 06-20-2025 End: 09-19-2025 CBC panel - Blood by Automated count COMPLETE BLOOD COUNT Lab Routine Anxiety Primary hypertension Expected: 06/20/2025 (Approximate), Expires: 09/19/2025 [facility] Comment on above: Expected: 06/20/2025 (Approximate), Expi res: 09/19/2025 Start: 06-20-2025 End: 09-19-2025 Comprehensive metabolic 2000 panel - Serum or Plasma COMPREHENSIVE METABOLIC PANEL Lab Routine Anxiety Primary hypertension Elevated fasting glucose Expected: 06/20/2025 (Approximate), Expires: 09/19/2025 [facility] Work Phone: Comment on above: Expected: 06/20/2025 (Approximate), Expi res: 09/19/2025 Start: 06-20-2025 End: 09-19-2025 Hemoglobin A1c in Blood HEMOGLOBIN A1C Lab Routine Primary hypertension Elevated fasting glucose Expected: 06/20/2025 (Approximate), Expires: 09/19/2025 [facility] Comment on above: Expected: 06/20/2025 (Approximate), Expi res: 09/19/2025 Start: 06-20-2025 End: 09-19-2025 Lipid 1996 panel - Serum or Plasma LIPID PANEL, FASTING Lab Routine Primary hypertension Expected: 06/20/2025 (Approximate), Expires: 09/19/2025 [facility] Comment on above: Expected: 06/20/2025 (Approximate), Expi res: 09/19/2025 Start: 06-20-2025 End: 09-19-2025 Magnesium [Mass/volume] in Serum or Plasma MAGNESIUM Lab Routine Anxiety Primary hypertension Expected: 06/20/2025 (Approximate), Expires: 09/19/2025 [facility] Comment on above: Expected: 06/20/2025 (Approximate), Expi res: 09/19/2025 Start: 06-20-2025 End: 09-19-2025 Thyrotropin [Units/volume] in Serum or Plasma THYROID STIMULATING HORMONE Lab Routine Anxiety Primary hypertension Expected: 06/20/2025 (Approximate), Expires: 09/19/2025 [facility] Comment on above: Expected: 06/20/2025 (Approximate), Expi res: 09/19/2025 Start: 06-05-2025 End: 06-05-2025 Patient encounter procedure 06/05/2025 1:00 PM EDT Office Visit Family Medicine [place] [address] [place] [address] Cesar Muller DO [address] [place] [address] patient requesting to [facility] from [facility] [place] Comment on above: patient requesting to [facility]EN from [facility] to [facility] Start: 06-04-2025 End: 06-04-2025 Patient encounter procedure 06/04/2025 5:40 PM EDT Office Visit Internal Medicine [place] [address] [place] [address] Lenny Dumas MD [address] [place] [address] annual/medicare wellness Internal Medicine [place] Comment on above: annual/medicare wellness Start: 05-29-2025 Annual PCP Team Chronic Disease Visit Annual PCP Team Chronic Disease Visit [facility] Start: 05-23-2025 End: 05-23-2025 Patient encounter procedure Mammogram Comment on above: Encounter for screening mammogram for br east cancer [Z12.31 Annual Start: 05-11-2025 Screening for malignant neoplasm of breast [facility] Start: 05-02-2025 End: 05-02-2025 Patient encounter procedure 05/02/2025 10:50 AM EST Office Visit [facility] [address] [place] [address] Nic Sampson MD [address] [place] [address] 6m f/u [facility] Comment on above: 6m f/u Start: 04-02-2025 DIABETES SCREEN DIABETES SCREEN [facility] Start: 04-02-2025 Diabetes Screening Diabetes Screening [facility] Start: 12-24-2024 End: 12-24-2024 Patient encounter procedure Cat Scan Comment on above: Tobacco Use: Types: Cigarettes FOLLOW UP Start: 12-05-2024 End: 12-05-2024 Patient encounter procedure 12/05/2024 9:15 AM EDT Office Visit [facility] [address] [place], [place] [id number] Sherron Lancaster MD [address] [place] [address] Diagnostics, [facility] [address] [address] 1 yr follow up [facility] Comment on above: 1 yr follow up [facility] Start: 12-03-2024 End: 12-03-2024 Patient encounter procedure 12/03/2024 11:10 AM EDT Office Visit OB/Gynecology [address] [place] [address] Konstantin River MD [address] [place] [address] having problem OB/Gynecology Comment on above: having problem Start: 11-29-2024 End: 11-29-2024 Patient encounter procedure 11/29/2024 11:15 AM EDT Appointment Radiology [address] [place] [id number] Osteopenia, unspecified location [M85.80] Radiology Comment on above: Osteopenia, unspecified location [M85.80 ] Start: 11-07-2024 End: 11-07-2024 Patient encounter procedure 11/07/2024 9:15 AM EDT Office Visit [facility] [address] [place] [address] Sherron Lancaster MD [address] [place] [address] 1 yr follow up [facility] Comment on above: 1 yr follow up [facility] Start: 11-06-2024 End: 11-06-2024 ambulatory PULM LAB [facility] Comment on above: f Tobacco Use: Types: Cigarettes Start: 11-01-2024 End: 11-01-2024 Patient encounter procedure 11/01/2024 8:30 AM EDT Office Visit Pulmonary Medicine [address] [place] [address] Ben Franklin APRN.NEEDLE LOOM WEAVER [address] [place] [address] cancer screen & looking at lung health. Pulmonary Medicine Comment on above: cancer screen & looking at lung health. Start: 10-29-2024 Influenza vaccination Influenza Vaccine (#1) [facility] Start: 10-17-2024 End: 10-17-2024 Patient encounter procedure 10/17/2024 8:45 AM EDT Office Visit [facility] [address] [place] [address] Suzie Suarez PA-C [address] [place] [address] Neck Pain [facility] Comment on above: Neck Pain Start: 09-28-2024 End: 09-28-2024 Patient encounter procedure 09/28/2024 8:40 AM EDT Office Visit Spine Medicine [facility] [address] [place], [place] [id number] Hugo Fish MD [address] [place], [place] [id number] (work) Bulging Disc Spine Medicine [facility] Comment on above: Bulging Disc Start: 09-10-2024 End: 09-10-2024 ambulatory 09/10/2024 9:15 AM EDT Results Only [place] [facility] [address] [place] [address] [place] [facility] Start: 09-05-2024 End: 09-05-2024 ambulatory 09/05/2024 9:00 AM EDT Results Only [place] [facility] [address] [place] [address] [place] [facility] Start: 08-21-2024 End: 11-20-2024 CBC W Auto Differential panel - Blood COMPLETE BLOOD COUNT AND DIFFERENTIAL Lab Routine Encounter for therapeutic drug monitoring Expected: 08/21/2024, Expires: 11/20/2024 [facility] Comment on above: Expected: 08/21/2024, Expires: Start: 08-21-2024 End: 11-20-2024 Comprehensive metabolic 2000 panel - Serum or Plasma COMPREHENSIVE METABOLIC PANEL Lab Routine Encounter for therapeutic drug monitoring Expected: 08/21/2024, Expires: 11/20/2024 [facility] Comment on above: Expected: 08/21/2024, Expires: Start: 08-21-2024 End: 11-20-2024 Hemoglobin A1c in Blood HEMOGLOBIN A1C Lab Routine Elevated fasting glucose Expected: 08/21/2024, Expires: 11/20/2024 [facility] Comment on above: Expected: 08/21/2024, Expires: Start: 08-21-2024 End: 11-20-2024 Lipid 1996 panel - Serum or Plasma LIPID PANEL, FASTING Lab Routine Hypercholesterolemia Expected: 08/21/2024, Expires: 11/20/2024 [facility] Comment on above: Expected: 08/21/2024, Expires: Start: 08-21-2024 End: 11-20-2024 Magnesium [Mass/volume] in Serum or Plasma MAGNESIUM Lab Routine Encounter for therapeutic drug monitoring Expected: 08/21/2024, Expires: 11/20/2024 [facility] Comment on above: Expected: 08/21/2024, Expires: Start: 08-21-2024 End: 11-20-2024 Thyrotropin [Units/volume] in Serum or Plasma THYROID STIMULATING HORMONE Lab Routine Elevated fasting glucose Expected: 08/21/2024, Expires: 11/20/2024 [facility] [facility] Comment on above: Expected: 08/21/2024, Expires: Start: 08-20-2024 End: 08-20-2024 Patient encounter procedure 08/20/2024 11:15 AM EDT Office Visit [facility] [address] [phone] Belinda Jenkins MD [address] [place] [address] [phone] [facility] [place] Start: 08-15-2024 COVID-19 Vaccine ( season) COVID-19 Vaccine () [facility] Start: 08-15-2024 End: 08-15-2024 Patient encounter procedure 08/15/2024 1:00 PM EDT Office Visit Neurology [facility] [address] [address] Alton Hays, DO [address] [place], [place] [id number] [facility] Neurology Comment on above: HEADACHES Start: 08-09-2024 End: 08-09-2024 Patient encounter procedure 08/09/2024 1:15 PM EDT Office Visit [facility] [address] [place], [place] [phone] Herson Zhang, OD [address] [place] [address] RETURN IN ABOUT 2 WEEKS FOR DERMATITIS FOLLOW UP Ophthalmology Comment on above: RETURN IN ABOUT 2 WEEKS FOR DERMATITIS F OLLOW UP Start: 07-16-2024 End: 07-16-2024 Patient encounter procedure 07/16/2024 7:20 AM EDT Office Visit Internal [facility] [place] [address] [place] [address] Nohemy Davis APRN.[employer] [address] [place] [address] 6 month follow up [facility] [place] Comment on above: 6 month follow up Start: 07-05-2024 Diabetes mellitus screening Diabetes Screening [facility] [employer] Start: 07-02-2024 End: 07-02-2025 MR Cervical spine WO contrast MR cervical spine wo contrast Imaging Routine Cervical radiculopathy Expected: 07/02/2024, Expires: 07/02/2025 [facility] [employer] Work Phone: Comment on above: Expected: 07/02/2024, Expires: Start: 06-29-2024 End: 06-29-2024 Patient encounter procedure 06/29/2024 8:40 AM EDT Office Visit Internal Medicine [place] [address] [facility] [place] [address] Ameena Larsen MD [address] [place] [address] 3 month med check [facility] [place] Comment on above: 3 month med check Start: 06-27-2024 [facility] Start: 06-27-2024 [facility] Start: 06-01-2024 End: 08-31-2024 CBC panel - Blood by Automated count COMPLETE BLOOD COUNT Lab Routine Encounter for long-term (current) use of medications Expected: 06/01/2024, Expires: 08/31/2024 [facility] Comment on above: Expected: 06/01/2024, Expires: Start: 06-01-2024 End: 08-31-2024 Comprehensive metabolic 2000 panel - Serum or Plasma COMPREHENSIVE METABOLIC PANEL Lab Routine Encounter for long-term (current) use of medications Expected: 06/01/2024, Expires: 08/31/2024 [facility] Comment on above: Expected: 06/01/2024, Expires: Start: 06-01-2024 End: 08-31-2024 Lipid 1996 panel - Serum or Plasma LIPID PANEL BASIC Lab Routine Elevated LDL cholesterol level Expected: 06/01/2024, Expires: 08/31/2024 [facility] Work Phone: Comment on above: Expected: 06/01/2024, Expires: Start: 06-01-2024 End: 06-01-2024 ambulatory 06/01/2024 8:15 AM EDT Results Only [place] [facility] [address] [facility] [place] [phone] [facility] Start: 05-11-2024 End: 05-11-2024 Patient encounter procedure Mammogram Comment on above: CARLOS ENRIQUE SCREENING W REUBEN annual Start: 04-07-2024 Screening for malignant neoplasm of breast Mammogram Screening [facility] Start: 04-01-2024 DIABETES SCREEN DIABETES SCREEN [facility] Start: 02-29-2024 Medicare Advantage Annual Wellness Visit Medicare Advantage Annual Wellness Visit [facility] Start: 01-05-2024 Covid-19 Vaccine () Covid-19 Vaccine () [facility] Comment on above: Postponed from 10/29/2022 (Declined at t his time) Start: 01-02-2024 End: 01-02-2024 Patient encounter procedure 01/02/2024 1:00 PM EST Office Visit Internal Medicine [place] [address] [facility] [place] [address] Nohemy Davis APRN.[employer] [address] [place] [address] Dizziness/nausea x 3 days; took self off of Cymbalta 3-4 days ago. See nurse triage note [facility] [place] Comment on above: Dizziness/nausea x 3 days; took self off of Cymbalta 3-4 days ago. See nurse triage note Start: 11-24-2023 Covid-19 Vaccine ( season) Covid-19 Vaccine ( season) [facility] Start: 11-24-2023 End: 11-24-2023 ambulatory 11/24/2023 9:30 AM EDT OT/PT/Speech Visit [facility] [address] [place] [address] Brianna Horta, PT M54.12 (ICD-10-CM) - Cervical radiculopathy [facility] Comment on above: M54.12 (ICD-10-CM) - Cervical radiculopa thy Start: 11-21-2023 End: 11-21-2023 Patient encounter procedure 11/21/2023 7:00 AM EDT Office Visit Internal Medicine [place] [address] [place] [address] Nohemy Davis APRN.[employer] [address] [facility] [place] [address] 3 month follow up-neck, physical therapy [facility] [place] Comment on above: 3 month follow up-neck, physical therapy Start: 11-15-2023 End: 11-15-2023 ambulatory 11/15/2023 8:15 AM EDT OT/PT/Speech Visit [facility] [address] [place] [address] O'Brianna Armas, PT M54.12 (ICD-10-CM) - Cervical radiculopathy [facility] Comment on above: M54.12 (ICD-10-CM) - Cervical radiculopa thy Start: 11-08-2023 End: 11-08-2023 ambulatory 11/08/2023 9:00 AM EDT OT/PT/Speech Visit [facility] [address] [place] [address] Brianna Horta, PT M54.12 (ICD-10-CM) - Cervical radiculopathy [facility] Comment on above: M54.12 (ICD-10-CM) - Cervical radiculopa thy Start: 10-30-2023 Influenza vaccination Influenza Vaccine (#1) [facility] Start: 10-19-2023 End: 10-19-2023 Patient encounter procedure 10/19/2023 3:30 PM EDT Office Visit Cardiology [address] [place] [address] True Mayers MD [address] [place] [address] Marf[facility] Card[facility] Comment on above: Marfans Syndrome Start: 10-19-2023 End: 10-19-2023 Patient encounter procedure 10/19/2023 1:30 PM EDT Office Visit Cardiology [address] [place] [phone] Marfans Syndrome Cardiology Comment on above: Marfans Syndrome Start: 10-19-2023 End: 10-19-2023 Patient encounter procedure 10/19/2023 7:45 AM EDT Appointment Radiology [address] [place] [phone] Marfan's syndrome [Q87.40] Radiology Comment on above: Marfan's syndrome [Q87.40] Start: 10-14-2023 End: 10-14-2023 ambulatory 10/14/2023 7:45 AM EDT OT/PT/Speech Visit [facility] [address] [place] [address] Brianna Horta, PT Cervical radiculopathy [M54.12] [facility] Comment on above: Cervical radiculopathy [M54.12] Start: 10-12-2023 End: 10-12-2023 Patient encounter procedure 10/12/2023 2:00 PM EDT Office Visit [facility] [address] [place] [address] Sherron [place] MD [address] [place] [address] [facility] Comment on above: [facility] Start: 08-15-2023 End: 08-15-2023 Patient encounter procedure 08/15/2023 8:20 AM EDT Office Visit Internal Medicine [place] [address] [place] [address] Nohemy Davis APRN.[employer] [address] [place] [address] Medicare Wellness - anytime in calendar year per MMO [facility] [place] Comment on above: Medicare Wellness - anytime in calendar year per MMO Start: 08-10-2023 End: 08-10-2023 Patient encounter procedure 08/10/2023 3:00 PM EDT Office Visit [facility] [address] [place] [address] Sherron Lancaster MD [address] [place], [place] [phone] [facility] Comment on above: [facility] Start: 07-05-2023 End: 07-05-2023 ambulatory 07/05/2023 7:00 AM EDT Results Only [facility] [address] [place] [address] Obesity, Class I, BMI 30-34.9 [E66.9] [facility] Comment on above: Obesity, Class I, BMI 30-34.9 [E66.9] Start: 06-17-2023 End: 06-16-2024 US Pelvis PELVIC US [facility] Anc Imaging Routine Cyst of ovary, unspecified laterality Expected: 06/17/2023, Expires: 06/16/2024 [facility] Work Phone: Comment on above: Expected: 06/17/2023, Expires: Start: 05-05-2023 End: 08-04-2023 HIV 1+2 Ab [Presence] in Serum or Plasma by Immunoassay HIV 1 2 COMBO(AG/AB),WITH REFLEX TO DIFFERENTIATION Lab Routine Screen for STD (sexually transmitted disease) Expected: 05/05/2023, Expires: 08/04/2023 [facility] Work Phone: Comment on above: Expected: 05/05/2023, Expires: 4 Start: 05-05-2023 End: 05-04-2024 US Pelvis PELVIC US [facility] Anc Imaging Routine Pelvic pain in female Expected: 05/05/2023, Expires: 05/04/2024 [facility] Work Phone: Comment on above: Expected: 05/05/2023, Expires: 5 Start: 01-03-2023 End: 03-05-2023 CBC panel - Blood by Automated count CBC Lab Routine Encounter for therapeutic drug monitoring Expected: 01/03/2023 (Approximate), Expires: 03/05/2023 [facility] Work Phone: Comment on above: Expected: 01/03/2023 (Approximate), Expi res: 03/05/2023 Start: 01-03-2023 End: 03-05-2023 Comprehensive metabolic 2000 panel - Serum or Plasma COMP METABOLIC PANEL Lab Routine NAFLD (nonalcoholic fatty liver disease) Encounter for therapeutic drug monitoring Expected: 01/03/2023 (Approximate), Expires: 03/05/2023 [facility] Work Phone: Comment on above: Expected: 01/03/2023 (Approximate), Expi res: 03/05/2023 Start: 01-03-2023 End: 03-05-2023 Lipid 1996 panel - Serum or Plasma LIPID PANEL BASIC Lab Routine Encounter for therapeutic drug monitoring Expected: 01/03/2023 (Approximate), Expires: 03/05/2023 [facility] Work Phone: Comment on above: Expected: 01/03/2023 (Approximate), Expi res: 03/05/2023 Start: 01-03-2023 End: 03-05-2023 Magnesium [Mass/volume] in Serum or Plasma MAGNESIUM BLD Lab Routine Encounter for therapeutic drug monitoring Expected: 01/03/2023 (Approximate), Expires: 03/05/2023 [facility] Work Phone: Comment on above: Expected: 01/03/2023 (Approximate), Expi res: 03/05/2023 Start: 10-19-2023 [facility] Start: 10-29-2022 Covid-19 Vaccine () Covid-19 Vaccine () [facility] Start: 10-29-2022 Influenza vaccination [facility] Start: 04-07-2022 End: 06-07-2022 Lipid 1996 panel - Serum or Plasma LIPID PANEL BASIC Lab Routine Screening for lipid disorders Expected: 04/07/2022, Expires: 06/07/2022 [facility] Work Phone: Comment on above: Expected: 04/07/2022, Expires: 3 Start: 03-31-2022 End: 05-31-2022 CBC panel - Blood by Automated count CBC Lab Routine Encounter for therapeutic drug monitoring Expected: 03/31/2022, Expires: 05/31/2022 [facility] Work Phone: Comment on above: Expected: 03/31/2022, Expires: 3 Start: 03-31-2022 End: 05-31-2022 Comprehensive metabolic 2000 panel - Serum or Plasma COMP METABOLIC PANEL Lab Routine Encounter for therapeutic drug monitoring Expected: 03/31/2022, Expires: 05/31/2022 [facility] Work Phone: Comment on above: Expected: 03/31/2022, Expires: 3 Start: 03-16-2022 End: 05-16-2022 Bacteria identified in Urine by Culture [facility] Work Phone: Comment on above: Expected: 03/16/2022, Expires: 3 Start: 12-14-2021 Patient referral [facility] Work Phone: Start: 10-29-2021 Influenza vaccination INFLUENZA (#1) [facility] Start: 10-11-2021 Lipid panel Lipid Panel [facility] Start: 07-07-2021 Mammography MAMMOGRAM [facility] Start: 06-04-2021 End: 08-04-2021 ANTI NEUTRO CYTO AB ANTI NEUTRO CYTO AB Lab Routine Multiple joint pain Fatigue, unspecified type Marfan's syndrome Hair loss Myalgia Subjective weakness Cervical radiculopathy Pica in adults Expected: 06/04/2021, Expires: 08/04/2021 [facility] Work Phone: Comment on above: Expected: 06/04/2021, Expires: 2 Start: 06-04-2021 End: 08-04-2021 THYROID PEROXIDASE ANTIBODY BLOOD THYROID PEROXIDASE ANTIBODY BLOOD Lab Routine Multiple joint pain Fatigue, unspecified type Marfan's syndrome Hair loss Expected: 06/04/2021, Expires: 08/04/2021 [facility] Work Phone: Comment on above: Expected: 06/04/2021, Expires: 2 Start: 06-02-2021 End: 08-02-2021 Chronic hepatitis differentiation between hepatitis B and C virus panel - Serum or Plasma HEP REMOTE PANEL BL Lab Routine Multiple joint pain Fatigue, unspecified type Expected: 06/02/2021, Expires: 08/02/2021 [facility] Work Phone: Comment on above: Expected: 06/02/2021, Expires: 2 Start: 06-02-2021 End: 08-02-2021 IRON + TIBC IRON + TIBC Lab Routine Multiple joint pain Fatigue, unspecified type Pica in adults Expected: 06/02/2021, Expires: 08/02/2021 [facility] Work Phone: Comment on above: Expected: 06/02/2021, Expires: 2 Start: 06-02-2021 End: 08-02-2021 VITAMIN B12 BLOOD VITAMIN B12 BLOOD Lab Routine Multiple joint pain Fatigue, unspecified type Expected: 06/02/2021, Expires: 08/02/2021 [facility] Work Phone: Comment on above: Expected: 06/02/2021, Expires: 2 Start: 06-02-2021 End: 08-02-2021 VITAMIN D 25 HYDROXY VITAMIN D 25 HYDROXY Lab Routine Multiple joint pain Fatigue, unspecified type Expected: 06/02/2021, Expires: 08/02/2021 [facility] Work Phone: Comment on above: Expected: 06/02/2021, Expires: 2 Start: 06-02-2021 End: 08-02-2021 ZINC BLD ZINC BLD Lab Routine Multiple joint pain Fatigue, unspecified type Pica in adults Expected: 06/02/2021, Expires: 08/02/2021 [facility] Work Phone: Comment on above: Expected: 06/02/2021, Expires: 2 Start: 05-29-2021 End: 05-29-2022 C reactive protein [Mass/volume] in Serum or Plasma C-REACTIVE PROTEIN (CRP) Lab Routine Multiple joint pain Fatigue, unspecified type Marfan's syndrome Expected: 05/29/2021, Expires: 05/29/2022 [facility] Work Phone: Comment on above: Expected: 05/29/2021, Expires: 3 Start: 05-29-2021 End: 05-29-2022 CK CREATINE KINASE CK CREATINE KINASE Lab Routine Multiple joint pain Fatigue, unspecified type Marfan's syndrome Expected: 05/29/2021, Expires: 05/29/2022 [facility] Work Phone: Comment on above: Expected: 05/29/2021, Expires: 3 Start: 05-29-2021 End: 05-29-2022 Cyclic citrullinated peptide IgG Ab [Units/volume] in Serum or Plasma CCP ANTIBODY IGG Lab Routine Multiple joint pain Fatigue, unspecified type Marfan's syndrome Expected: 05/29/2021, Expires: 05/29/2022 [facility] Work Phone: Comment on above: Expected: 05/29/2021, Expires: 3 Start: 05-29-2021 End: 05-29-2022 DNA double strand Ab [Units/volume] in Serum by Immunoassay DNA AB DS + CONF BLD Lab Routine Multiple joint pain Fatigue, unspecified type Marfan's syndrome Expected: 05/29/2021, Expires: 05/29/2022 [facility] Work Phone: Comment on above: Expected: 05/29/2021, Expires: 3 Start: 05-29-2021 End: 05-29-2022 Erythrocyte sedimentation rate SED RATE WESTERGREN Lab Routine Multiple joint pain Fatigue, unspecified type Marfan's syndrome Expected: 05/29/2021, Expires: 05/29/2022 [facility] Work Phone: Comment on above: Expected: 05/29/2021, Expires: 3 Start: 05-29-2021 End: 05-29-2022 Extractable nuclear Ab panel - Serum ANTI SUGAR ID Lab Routine Multiple joint pain Fatigue, unspecified type Marfan's syndrome Expected: 05/29/2021, Expires: 05/29/2022 [facility] Work Phone: Comment on above: Expected: 05/29/2021, Expires: 3 Start: 05-29-2021 End: 05-29-2022 RHEUMATOID FACTOR BL RHEUMATOID FACTOR BL Lab Routine Multiple joint pain Fatigue, unspecified type Marfan's syndrome Expected: 05/29/2021, Expires: 05/29/2022 [facility] Work Phone: Comment on above: Expected: 05/29/2021, Expires: 3 Start: 02-28-2019 Urine microalbumin profile DTAP,TDAP,TD (2 - Td or Tdap) [facility] Start: 03-02-2017 End: 10-27-2016 Ct angiography, chest CTA Chest, with contrast material(s) [employer] Work Phone: Start: 2016 Pneumococcal Vaccine: 50+ (1 of 1 - PCV) Pneumococcal Vaccine: 50+ (1 of 1 - PCV) [facility] Start: 2016 Screening for malignant neoplasm of lung Lung Cancer Screening [facility] Start: 11-10-2016 End: 10-27-2016 Follow Up BP Check Follow Up BP Check [facility] Work Phone: Start: 10-27-2016 End: 10-27-2016 Appointment Appointment [facility] Work Phone: Start: 10-27-2016 End: 10-27-2016 DJN DJN [facility] Work Phone: Start: 10-27-2016 End: 10-27-2016 Echocardiography Echocardiogram (complete) [facility] Work Phone: Start: 10-27-2016 End: 10-27-2016 Follow Up Appt 6 months Follow Up Appt 6 months [facility] Work Phone: Start: 10-27-2016 End: 10-27-2016 Stress Echocardiogram (treadmill) Stress Echocardiogram (treadmill) [facility] Work Phone: Start: 10-26-2016 End: 10-26-2016 Appointment Appointment [facility] Work Phone: Start: 10-11-2016 End: 11-03-2016 *BMP *BMP [facility] Work Phone: Start: 10-11-2016 End: 11-03-2016 *CBC with Differential *CBC with Differential [facility] Work Phone: Start: 10-11-2016 End: 11-05-2016 25-Hydroxyvitamin D2+25-Hydroxyvitamin D3 [Mass/volume] in Serum or Plasma *Vitamin D (Calciferol) [facility] Work Phone: Start: 10-11-2016 End: 10-11-2016 Cardiac Referral Cardiac Referral Yvon Salazar MD, [facility] [facility], [address], [place], [address] [facility] Work Phone: Start: 10-11-2016 End: 10-11-2016 Follow Up Appt 6 months Follow Up Appt 6 months [facility] Work Phone: Start: 10-11-2016 End: 11-03-2016 HbA1c *HgA1C [facility] Work Phone: Start: 10-11-2016 End: 11-03-2016 Lipid panel [AGGREGATE] *Lipid Profile [facility] Work Phone: Start: 10-11-2016 End: 11-03-2016 Thyroid stimulating hormone (TSH) *TSH [facility] Work Phone: Start: 10-11-2016 End: 11-03-2016 Thyroxine (T4) free *T4 free [facility] Work Phone: Start: 12-27-2011 End: 12-27-2011 Echocardiography Echocardiogram (complete) [facility] Work Phone: Start: 12-27-2011 End: 12-27-2011 Follow Up Appt 3 months Follow Up Appt 3 months [facility] Work Phone: Start: 11-12-2011 COLOGUARD (FIT-DNA) COLOGUARD (FIT-DNA) [facility] Start: 11-12-[address] COLONOGRAPHY [facility] Start: 11-12-2011 FECAL OCCULT BLOOD FECAL OCCULT BLOOD [facility] Start: 11-12-2011 Screening for malignant neoplasm of colon [facility] Start: 11-12-2011 SIGMOIDOSCOPY SIGMOIDOSCOPY [facility] Start: 06-10-2011 End: 06-10-2011 Follow Up Appt 6 months Follow Up Appt 6 months [facility] Work Phone: Start: 06-10-2011 End: 06-10-2011 Mri angio, abdom w orw/o dye MRA (Various) [facility] Work Phone: Start: 1996 Screening for malignant neoplasm of cervix [facility] Start: 11-12-1987 Screening for malignant neoplasm of cervix Pap Smear [facility] Start: 1985 Hepatitis B Vaccines (1 of 3 - 19+ 3-dose series) Hepatitis B Vaccines (1 of 3 - 19+ 3-dose series) [facility] Start: 1984 HEPATITIS C SCREENING HEPATITIS C SCREENING [facility] Start: 1984 Hepatitis C screening Hepatitis C Screening [facility] Start: 1984 HIV SCREENING HIV SCREENING [facility] Start: 1978 Depression Monitoring Depression Monitoring [facility] Start: 11-12-1967 MMR Vaccines (1 of 1 - Standard series) MMR Vaccines (1 of 1 - Standard series) [facility] Start: 1966 HIV screening HIV Screening [facility] Start: 1966 Lipid panel Lipid Panel [facility] Start: 1966 Screening for malignant neoplasm of colon [facility] Bacteria identified in Urine by Culture URINE CULTURE Microbiology Routine Urinary frequency Burning with urination Ordered: 12/05/2021 [facility] Work Phone: Comment on above: Ordered: 12/05/2021 Bacteria identified in Urine by Culture URINE CULTURE Microbiology Routine Urinary frequency 04/12/2023 10:32 AM EST [facility] Work Phone: End: 09-13-2025 BD DXA TRABECULAR BONE SCORE (TBS) BD DXA TRABECULAR BONE SCORE (TBS) Radiology Routine Osteopenia, unspecified location 1 Occurrences starting 08/21/2024 until 09/13/2025 [facility] Comment on above: 1 Occurrences starting 08/21/2024 until 09/13/2025 End: 12-01-2025 CT Chest for screening WO contrast CT LUNG SCREEN WO IVCON Radiology Routine Encounter for screening for lung cancer Former tobacco use 1 Occurrences starting 11/01/2024 until 12/01/2025 [facility] Comment on above: 1 Occurrences starting 11/01/2024 until 12/01/2025 End: 09-21-2025 CT Heart and Coronary arteries for calcium scoring WO contrast CT CALCIUM SCORING SELF PAY Radiology Routine Hypercholesterolemia Elevated fasting glucose Encounter for screening for cardiovascular disorders 1 Occurrences starting 08/22/2024 until 09/21/2025 [facility] Comment on above: 1 Occurrences starting 08/22/2024 until 09/21/2025 End: 11-03-2024 CTA Chest vessels W contrast IV CTA CHEST (GATED) W IVCON Radiology Routine Marfan's syndrome Aortic root dilation (HCC) Family history of Marfan syndrome Chest pain, unspecified type 1 Occurrences starting 10/05/2023 until 11/03/2024 [facility] Comment on above: 1 Occurrences starting 10/05/2023 until 11/03/2024 End: 06-03-2024 DBT Breast - bilateral screening CARLOS ENRIQUE SCREENING W REUBEN Radiology Routine Encounter for screening mammogram for breast cancer Dense breast tissue 1 Occurrences starting 05/05/2023 until 06/03/2024 [facility] Work Phone: Comment on above: 1 Occurrences starting 05/05/2023 until 06/03/2024 End: 06-10-2025 DBT Breast - bilateral screening CARLOS ENRIQUE SCREENING W REUBEN Radiology Routine Encounter for screening mammogram for breast cancer 1 Occurrences starting 05/11/2024 until 06/10/2025 [facility] Work Phone: Comment on above: 1 Occurrences starting 05/11/2024 until 06/10/2025 DBT Breast - bilater al screening CARLOS ENRIQUE SCREENING W REUBEN Radiology Routine Encounter for screening mammogram for breast cancer Dense breast tissue 05/11/2024 1:16 PM EDT [facility] Work Phone: End: 09-13-2025 DXA Skeletal system.axial Views for bone density DXA-AXIAL SKELETON Radiology Routine Osteopenia, unspecified location 1 Occurrences starting 08/21/2024 until 09/13/2025 [facility] Work Phone: Comment on above: 1 Occurrences starting 08/21/2024 until 09/13/2025 End: 07-11-2025 ECG COMPLETE ECG COMPLETE ECG Routine Marfan's syndrome (HCC) Aortic root dilation Primary hypertension Hypercholesterolemia 1 Occurrences starting 07/11/2024 until 07/11/2025 [facility] Work Phone: Comment on above: 1 Occurrences starting 07/11/2024 until 07/11/2025 End: 07-11-2025 Echocardiography ECHO Cardiology Routine Marfan's syndrome (HCC) Aortic root dilation Primary hypertension Hypercholesterolemia 1 Occurrences starting 07/11/2024 until 07/11/2025 [facility] Comment on above: 1 Occurrences starting 07/11/2024 until 07/11/2025 End: 12-01-2025 LUNG DIFFUSION CAPACITY (DLCO) LUNG DIFFUSION CAPACITY (DLCO) PFT Routine Shortness of breath 1 Occurrences starting 11/01/2024 until 12/01/2025 [facility] Comment on above: 1 Occurrences starting 11/01/2024 until 12/01/2025 LUNG DIFFUSION CAPAC ITY (DLCO) LUNG DIFFUSION CAPACITY (DLCO) PFT Routine Shortness of breath 11/06/2024 7:44 AM EDT [facility] Work Phone: End: 12-01-2025 LUNG VOLUMES LUNG VOLUMES PFT Routine Shortness of breath 1 Occurrences starting 11/01/2024 until 12/01/2025 [facility] Work Phone: Comment on above: 1 Occurrences starting 11/01/2024 until 12/01/2025 LUNG VOLUMES LUNG VOLUMES PFT Routine Shortness of breath 11/06/2024 7:44 AM EDT [facility] Work Phone: End: 09-11-2022 CARLOS ENRIQUE SCREENING W REUBEN CARLOS ENRIQUE SCREENING W REUBEN Radiology Routine Encounter for screening mammogram for breast cancer 1 Occurrences starting 08/12/2021 until 09/11/2022 [facility] Work Phone: Comment on above: 1 Occurrences starting 08/12/2021 until 09/11/2022 End: 01-06-2024 CARLOS ENRIQUE SCREENING W REUBEN CARLOS ENRIQUE SCREENING W REUBEN Radiology Routine Screening mammogram for breast cancer 1 Occurrences starting 12/07/2022 until 01/06/2024 [facility] Work Phone: Comment on above: 1 Occurrences starting 12/07/2022 until 01/06/2024 End: 08-10-2024 MR Cervical spine WO contrast [facility] Work Phone: Comment on above: Once for 1 Occurrences starting 08/11/19 until 08/10/2024 End: 04-30-2023 Mri spinal canal cervical w/o contrast matrl MRI CERVICAL SPINE WO IVCON Radiology Routine Cervicalgia Cervical radiculopathy Cervical nerve root impingement Cervical disc herniation 1 Occurrences starting 03/31/2022 until 04/30/2023 [facility] Work Phone: Comment on above: 1 Occurrences starting 03/31/2022 until 04/30/2023 End: 12-01-2025 NITRIC OXIDE, EXHALED NITRIC OXIDE, EXHALED PFT Routine Shortness of breath 1 Occurrences starting 11/01/2024 until 12/01/2025 [facility] Comment on above: 1 Occurrences starting 11/01/2024 until 12/01/2025 PAP TEST PAP TEST Lab Rou teresa Encounter for gynecological examination (general) (routine) without abnormal findings Screening for cervical cancer Special screening examination for human papillomavirus (HPV) 05/05/2023 3:08 PM EST [facility] Work Phone: Patient Education ED Headache Unspecified [facility] Work Phone: Patient referral [facility] Work Phone: End: 05-29-2025 Polysomnogram POLYSOMNOGRAM (PSG) Procedures Routine Daytime sleepiness Snoring Primary hypertension 1 Occurrences starting 05/29/2024 until 05/29/2025 [facility] Work Phone: Comment on above: 1 Occurrences starting 05/29/2024 until 05/29/2025 End: 12-01-2025 SPIROMETRY - BASELINE AND POST DILATOR SPIROMETRY - BASELINE AND POST DILATOR PFT Routine Shortness of breath 1 Occurrences starting 11/01/2024 until 12/01/2025 [facility] Comment on above: 1 Occurrences starting 11/01/2024 until 12/01/2025 SPIROMETRY - BASELIN E AND POST DILATOR SPIROMETRY - BASELINE AND POST DILATOR PFT Routine Shortness of breath 11/06/2024 7:44 AM EDT [facility] Work Phone: End: 10-04-2024 STRESS ECHO TREADMILL STRESS ECHO TREADMILL Cardiology Routine Marfan's syndrome Aortic root dilation (HCC) Family history of Marfan syndrome 1 Occurrences starting 10/05/2023 until 10/04/2024 [facility] Work Phone: Comment on above: 1 Occurrences starting 10/05/2023 until 10/04/2024 UA DIP B/O UA DIP B/O Lab R outine Acute cystitis with hematuria Urinary frequency Ordered: 03/16/2022 [facility] Work Phone: Comment on above: Ordered: 03/16/2022 End: 06-03-2024 US Pelvis transvaginal US FEMALE PELVIS TRANSVAG Radiology Routine Pelvic pain in female 1 Occurrences starting 05/05/2023 until 06/03/2024 [facility] Work Phone: Comment on above: 1 Occurrences starting 05/05/2023 until 06/03/2024 US Pelvis transvaginal US FEMALE PELVIS TRANSVAG Radiology Routine Pelvic pain in female 05/16/2023 1:54 PM EDT [facility] Work Phone: End: 09-13-2024 XR Cervical spine AP and Lateral and oblique XR CERV OTHER 4V AP/LAT/OBL Radiology Routine Cervical radiculopathy Cervical disc herniation 1 Occurrences starting 08/15/2023 until 09/13/2024 [facility] Work Phone: Comment on above: 1 Occurrences starting 08/15/2023 until 09/13/2024 XR Cervical spine AP and Lateral and oblique XR CERV OTHER 4V AP/LAT/OBL Radiology Routine Cervical radiculopathy Cervical disc herniation 08/15/2023 9:48 AM EDT [facility] Immunizations Immunization Date Immunization Notes Care Provider [facility] 03-10-2024 pneumococcal conjuga te (PCV20) vaccine, 20 valent (PREVNAR 20) Nohemy Davis LAY OUT CARPENTER.[employer]OM WEAV[employer] Work Phone: [facility] 01-25-2024 influenza, seasonal, injectable, preservative free Konstantin River MD Work Phone: [facility] 01-25-2024 influenza virus vaccine, unspecified formulation Nic Sampson MD Work Phone: [facility] 09-29-2023 COVID-19 vaccine, ag e 12+ yr (MODERNA) Nohemy Davis LAY OUT CARPENTER.NEEDLE LOOM WEAVER Work Phone: [facility] 12-29-2022 influenza, injectabl e, quadrivalent, preservative free Nohemy Ryan LAY OUT CARPENTER.[employer] LO[employer] WEAVER Work Phone: [facility] 12-29-2022 influenza virus vaccine, unspecified formulation True Mayers MD Work Phone: [facility] 12-28-2021 influenza, injectabl e, quadrivalent, preservative free Nohemy Ryan LAY OUT CARPENTER.NEEDLE LOOM WEAVER Work Phone: [facility] Work Phone: 10-31-2022 influenza virus vaccine, unspecified formulation Lenny Dumas MD Work Phone: [facility] 12-14-2021 tetanus toxoid, reduced diphtheria toxoid, and acellular pertussis vaccine, adsorbed Dr. bAa Del Toro Work Phone: [facility] Work Phone: 11-17-2021 Covid Pfizer Bivalen t Booster Dr. Aba Del Toro Work Phone: [facility] 01-06-2021 Covid (Pfizer) Dr. Aba ramirez Work Phone: [facility] 12-09-2020 influenza, injectabl e, quadrivalent, preservative free Emily Older LAY OUT CARPENTER.[employer] LOOM WEAVER Work Phone: [facility] Work Phone: 12-09-2020 influenza, seasonal, injectable Dr. Aba Del Toro Work Phone: [facility] Work Phone: 05-08-2020 COVID-19 vaccine (DAMIEN) Emily Older LAY OUT CARPENTER.NEEDLE LOOM WEAVER Work Phone: [facility] 12-13-2019 influenza, injectabl e, quadrivalent, contains preservative Emily Older LAY OUT CARPENTER.[employer] WEAVER Work Phone: [facility] Work Phone: 12-13-2019 influenza, injectabl e, quadrivalent, preservative free Dr. Lenny Dumas MD Work Phone: [facility] 12-13-2019 influenza, seasonal, injectable Dr. Aba Del Toro Work Phone: [facility] 12-06-2019 zoster vaccine recombinant Emily Older LAY OUT CARPENTER.[employer] LO[employer] WEAVER Work Phone: [facility] Work Phone: 08-24-2019 zoster vaccine recombinant Emily Older LAY OUT CARPENTER.[employer] LO[employer] WEAVER Work Phone: [facility] Work Phone: 02-28-2009 tetanus toxoid, reduced diphtheria toxoid, and acellular pertussis vaccine, adsorbed Emily Older LAY OUT CARPENTER.[facility] Work Phone: [facility] Work Phone: Payers Date Payer Category Payer Unknown [id number] 2024 Self-pay [id number] 2024 Medicare HMO MMO MEDICARE ADV ANTAGE [id number] 2023 Medicare (Managed Care) MMO DRAKE DVANTAGE HMO [id number] 2023 Medicare [id number] 2022 Unknown [id number] 2019 Medicare UHC AARP MEDICAR E [facility] AAR MEDICARE HMO [id number] 2019-Present [phone] [address] [address] [place] [address] [facility] [id number] 2019 Medicare [id number] Medicare [id number] Unknown [id number] Unknown [id number] Unknown [id number] Unknown [id number] Unknown [id number] Unknown [id number] Unknown [id number] Unknown [id number] Unknown [id number] Social History Date Type Detail Facility Start: 01-07-2015 End: 10-19-2023 Tobacco smoking status NHIS Ex-smoker [facility] Start: 02-29-1980 End: 02-28-2011 History of tobacco use Current smoker [facility] Start: 02-29-1980 End: 02-28-2011 History of tobacco use Cigarette Smoker [facility] Start: 05-22-2021 End: 10-17-2024 Alcohol intake Current non-drinker of alcohol (finding) [facility] Start: 04-08-2021 End: 03-30-2022 History SDOH Physical Activity DPW 0 [facility] Start: 04-08-2021 History SDOH Stress 5 [facility] Start: 1965 Sex Assigned At Female [facility] Start: 05-15-2021 End: 12-05-2021 Exposure to SARS-CoV-2 (event) Not sure [facility] Start: 10-23-2019 End: 02-23-2022 Tobacco smoking status NHIS Unknown if ever smoked [facility] Start: 01-12-2019 Non-smoker [facility] Start: 01-07-2015 End: 07-05-2022 Cigarettes smoked current (pack per day) - Reported 0.2 [facility] Start: 01-07-2015 End: 10-19-2023 Tobacco use and exposure Smokeless tobacco non-user [facility] Start: 03-30-2022 History SDOH Alcohol Frequency 1 [facility] Start: 03-30-2022 History SDOH Social Connections Phone 2 [facility] Start: 03-30-2022 History SDOH Social Connections Living 3 [facility] Start: 03-30-2022 History SDOH Stress 4 [facility] Start: 03-30-2022 End: 07-05-2022 Social connection and isolation panel [facility] Do you belong to any clubs or organizations such as rastafarian groups, unions, fraternal or athletic groups, or school groups? No [facility] Are you now , , , , never or living with a partner? [facility] How often to you hav e a drink containing alcohol? Never [facility] Start: 01-30-2012 How many standard drinks containing alcohol do you have on a typical day? Patient does not drink [facility] How hard is it for y ou to pay for the very basics like food, housing, medical care, and heating Not very hard [facility] Do you feel stress - tense, restless, nervous, or anxious, or unable to sleep at night because your mind is troubled all the time - these days [OSQ] Rather much [facility] (I/We) worried jimmy er (my/our) food would run out before (I/we) got money to buy more. Never true [facility] Start: 05-14-2021 Gender identity Identifies as female gender (finding) [facility] Start: 05-14-2021 Sexual orientation Heterosexual (finding) [facility] Do you feel stress - tense, restless, nervous, or anxious, or unable to sleep at night because your mind is troubled all the time - these days [OSQ] To some extent [facility] Start: 07-02-2024 Tobacco smoking status NHIS Never smoked tobacco [facility] Start: 07-02-2024 End: 08-20-2024 Alcoholic beverage intake Lifetime non-drinker (finding) [facility] Start: 1965 Sex assigned at Not on file [facility] Start: 06-20-2024 Sex Female (finding) [facility] Are you now , , , , never or living with a partner? [facility] Start: 11-01-2024 End: 11-06-2024 Alcoholic beverage intake Current drinker of alcohol (finding) [facility] Start: 11-01-2024 Alcohol Comment Occassionally [facility] Functional Status Date Assessment Result Facility 05-08-2014 Are you deaf, or do you have serious difficulty hearing No 05/08/2014 1:06 PM ROMEROT Dayana Harmon APRN.ZOIE No [facility] Work Phone: 05-08-2014 Are you blind, or do you have serious difficulty seeing, even when wearing glasses No 05/08/2014 1:06 PM ROMEROT Dayana Harmon APRN.NEEDLE LOOM WEAVER No [facility] 05-08-2014 Do you have serious difficulty walking or climbing stairs No 05/08/2014 1:06 PM ROMEROT Dayana Harmon APRN.NEEDLE LOOM WEAVER No [facility] 05-08-2014 Do you have difficul ty dressing or bathing No 05/08/2014 1:06 PM Dayana Robles APRN.NEEDLE LOOM WEAVER No [facility] 05-08-2014 Because of a physica l, mental, or emotional condition, do you have difficulty doing errands alone such as visiting a physician's office or shopping No 05/08/2014 1:06 PM Dayana Robles APRN.NEEDLE LOOM WEAVER No [facility] Mental Status Date Assessment Result Facility 06-27-2024 Cognitive function Level Of Cons ciousness Awake;Alert;Appropriate;Fol lows Commands [facility] Work Phone: 05-08-2014 Because of a physica l, mental, or emotional condition, do you have serious difficulty concentrating, remembering, or making decisions No 05/08/2014 1:06 PM EDT Dayana Harmon APRN.NEEDLE LOOM WEAVER No [facility] Clinical Notes 07-09-2020 to 12-24-2024 Telephone Encounter - Tash Greene RN - 11/06/2024 9:31 AM EDTTelephone Encounter - Tash Greene RN - 11/06/2024 9:31 AM EDTPZeina schmid RPFT - 11/06/2024 8:13 AM EDTPatient Instructions Note Date & Type Note Facility 12-24-2024 Note HNO ID: [id number] Author: EDEL CASTILLO APRN.CNP Service: ? Author Type: Nurse Practitioner Type: Progress Notes Filed: 12/24/2024 16:53 Note Text: Chief Complaint: Follow up to review initial LDCT scan PRIMARY CARE PHYSICIAN: Lenny Dumas MD PULMONARY PROVIDER: N/A FIREFIGHTER MARINE: Dr. Mayers Current or Ex-smoker? [Ex] Exam Type: Baseline LDCT Number of Pack Years: 33 Number of Years since Quit: 11 Impression / Recommendations Itzel Soriano presents for review of lung cancer screening initial exam and nodule evaluation. 1. Indeterminate pulmonary nodules (R91.8) - Multiple small, stable pulmonary nodules identified on low-dose CT scan; no significant changes compared to prior imaging from 2019. - Nodules are common, especially in patients with a history of smoking; explained that most remain benign but require surveillance for early detection of malignancy. 2. Encounter for screening for malignant neoplasm of respiratory organs (Z12.2) - Annual low-dose CT scan recommended to monitor for any changes; order placed for next year. - Discussed rationale for annual surveillance, including the importance of early detection of potential malignancy. 3. Personal history of nicotine dependence (Z87.891) - Former smoker, quit over 11 years ago; no current use of marijuana, vaping, or cigars. - Encouraged continued abstinence from smoking and avoidance of secondhand smoke exposure. I spent a total of 37 minutes on the date of the service which included preparing to see the patient, [id number] patient care, completing clinical documentation, obtaining and/or reviewing separately obtained history, performing a medically appropriate examination, counseling and educating the patient/family/caregiver, ordering medications, tests, or procedures, communicating with other HCPs (not separately reported), independently interpreting results (not separately reported), and communicating results to the patient/family/caregiver. EDEL CASTILLO, JOHNATHAN.NEEDLE LOOM WEAVER History of Present Illness: The patient is a 59-year-old female with hypertension, presenting for evaluation of pulmonary nodules on surveillance low-dose CT chest. Patient will continue to be eligible for lung cancer screening through 15 yrs smoke free OR age 80 per USPTF guidelines (however if patient has Medicare/Medicaid, only eligible through age 77)-- whichever occurs first. Respiratory symptoms include: Recent Respiratory Infection: No SOB: Yes Chest tightness: Yes Coughing: Yes: Without mucus Hemoptysis: No Wheezing: No Fever/Chills: No Unintentional weight loss: No Itzel Soriano is a 59-year-old female with a history of HTN, presenting for follow-up on lung nodules. Lung Nodules: - Recent CT scan showed small lung nodules. - Denies recent respiratory infections. - Denies significant cough or sputum production. - Denies use of marijuana, vaping, or cigars. - Former smoker, quit over 11 years ago; occasionally tempted to smoke. - Family history of lung cancer in brother, who recently had a lobectomy. - Uncertain about paternal grandmother's history of lung cancer; known history of uterine and breast cancer. Dyspnea: - Denies significant dyspnea. - Recent pulmonary function tests were negative. - Followed up with dragger; reports high BP and edema. - Currently on spironolactone; recently discontinued prednisone 2 days ago. - Reports mild chest tightness, attributing it to GERD. - Taking Prilosec for GERD management. Modified Medical Research [place] Dyspnea Scale (MMRC): On level ground I walk slower than people of the same age because of breathlessness, or have to stop for breath when walking at my own pace 2 ECOG Performance Status: 0- Fully active, able to carry on all pre-disease performance w/o restriction. PHYSICAL EXAMINATION: BP (P) 108/62 Pulse (P) 93 Resp (P) 14 Wt (P) 96.2 kg (212 lb) LMP 07/11/2024 (Within Days) SpO2 (P) 95% BMI (P) 32.96 kg/m? Physical Exam Constitutional: General: She is not in acute distress. Appearance: Normal appearance. She is not ill-appearing or toxic-appearing. HENT: Head: Normocephalic and atraumatic. Nose: Nose normal. Cardiovascular: Rate and Rhythm: Normal rate and regular rhythm. Pulses: Normal pulses. Heart sounds: Normal heart sounds. No murmur heard. No friction rub. No gallop. Pulmonary: Effort: Pulmonary effort is normal. No respiratory distress. Breath sounds: Normal breath sounds. No stridor. No wheezing, rhonchi or rales. Chest: Chest wall: No tenderness. Musculoskeletal: Cervical back: Normal range of motion. No rigidity or tenderness. Right lower leg: Edema present. Left lower leg: Edema present. Lymphadenopathy: Cervical: No cervical adenopathy. Skin: General: Skin is warm and d (more content not included)... [facility] 12-24-2024 Note HNO ID: [id number] Author: BIBI JENSEN, RT(R) Service: ? Author Type: Bonsai Culturist Type: Progress Notes Filed: 12/24/2024 15:09 Note Text: Radiology Service Progress Note PATIENT NAME: Itzel Soriano DATE OF SERVICE: December 24, 2024 TIME: 3:09 PM PATIENT IDENTITY VERIFICATION COMPLETED USING TWO (2) IDENTIFIERS: Name and Date of confirmed by patient verbally. FALL SCREENING: Has the patient had 2 falls in the last year or 1 fall with injury or currently using an Ambulatory Assistive Device (Walker, Cane, Wheelchair, Crutches, etc.)? No PATIENT GENDER DATA: Assigned female at . status: : No status: NO. PATIENT RELEVANT IMPLANT DATA REVIEWED: Yes PATIENT PRESENTS WITH AN IMPLANTABLE OR ATTACHED DISCHARGE SPECIALIST: No RADIOLOGY DEPARTMENT: CT; Exam(s) Completed: Lung Screening. Anesthesia: No PERIPHERAL IV DATA: Not applicable SIGNED BY: RT Rosales(R) December 24, 2024 3:09 PM [facility] 12-05-2024 Note HNO ID: [id number] Author: SHERRON LANCASTER MD Service: ? Author Type: Physician Type: Progress Notes Filed: 12/05/2024 10:50 Note Text: Assessment and Plan 1. Vitreous floaters of both eyes -long-standing, with occasional flashes that were recently noted -no evidence of Retinal detachment On examination today 2. Marfan's syndrome -with strong family history And consistent symptoms but no genetic diagnosis 3. Glaucoma suspect of both eyes -with history of elevated intraocular pressure both eyes, within normal limits today -no evidence of disc damage 4. Pseudophakia -stable Anterior chamber intraocular lens (ACIOL) both eyes, s/p lensectomy right eye 2013, left eye 2001 with capsular bag remnant left eye 5. Eczematous eyelid dermatitis -responds well to protopic ointment Plan: -Retina precautions reviewed. Return to clinic as soon as possible if increased floaters, flashes, or shadows. -explained increased risk in setting of Marfan and Anterior chamber intraocular lenses (ACIOL), and importance of vigilance -artificial tears twice a day both eyes -follow-up retina as residual lens complex left eye not causing intermittent blocking of her temporal vision Dr. Zhang or me in 12 months with dilated fundus exam both eyes (in [place]), sooner as needed I have confirmed and edited as necessary the relevant ophthalmic history, ROS, and the neuro exam findings as obtained by others. I have seen and examined Nina Soriano. I have discussed the case and the management of this patient's care with the Resident/Fellow, if applicable. I also have reviewed and agree with the assessment and plan as stated above and agree with all of its relevant components. Sherron Lancaster MD [facility] 12-03-2024 Note HNO ID: [id number] Author: EMELI WRAY MD Service: ? Author Type: Physician Type: Procedures Filed: 12/03/2024 16:49 Note Text: Tested on this order: Modified Panel [place] - INH 40 (current) *Sorting antigens by tested panel order. Result Date Performed Antigen Dilution Procedure (W/F) Pos 12/03/2024 Negative Control Control Prick 0 NegativeControl 12/03/2024 Histamine Control Prick 12/17 PositiveControl 12/03/2024 Cat Hair 10,000 BAU/mL Prick 0 Negative 12/03/2024 Dog, UF 1:650 w/v Prick 0 Negative 12/03/2024 2 Cockroach Mix 1:20 w/v Prick 0 Negative 12/03/2024 Mite Df 10,000 AU/mL Prick 0 Negative 12/03/2024 Mite Dp 10,000 AU/mL Prick 0 Negative 12/03/2024 Alternaria Alternata 1:20 w/v Prick 0 Negative 12/03/2024 Aspergillus Fumigatus 1:20 w/v Prick 0 Negative 12/03/2024 Cladosporium Spaerospermum 1:20 w/v Prick 0 Negative 12/03/2024 Epicoccum Nigrum 1:40 w/v Prick 0 Negative 12/03/2024 Fusarium Solani 1:40 w/v Prick 0 Negative 12/03/2024 Bipolaris Sorokiniana 1:20 w/v Prick 0 Negative 12/03/2024 Penicillium Mix 1:20 w/v Prick 0 Negative 12/03/2024 Nghia, White 1:20 w/v Prick 0 Negative 12/03/2024 Beech, Kuwaiti 1:20 w/v Prick 0 Negative 12/03/2024 Birch Mix 1:20 w/v Prick 0 Negative 12/03/2024 Maple Mix 1:20 w/v Prick 0 Negative 12/03/2024 [place], Eastern 1:20 w/v Prick 0 Negative 12/03/2024 Premier, Shagbark 1:20 w/v Prick 0 Negative 12/03/2024 [place], Red 1:20 w/v Prick 0 Negative 12/03/2024 [place], Red 1:20 w/v Prick 0 Negative 12/03/2024 Globe, Kuwaiti/Eastern 1:20 w/v Prick 0 Negative 12/03/2024 [place] Pollen, Black 1:20 w/v Prick 0 Negative 12/03/2024 [place], Black 1:20 w/v Prick 0 Negative 12/03/2024 Bermuda Grass 10,000 BAU/mL Prick 0 Negative 12/03/2024 [place] Blue/Altagracia Grass 100,000 BAU/mL Prick 0 Negative 12/03/2024 [place]hoe Fescue 100,000 BAU/mL Prick 0 Negative 12/03/2024 Vasquez Grass 1:20 w/v Prick 0 Negative 12/03/2024 Orchard Grass 100,000 BAU/mL Prick 0 Negative 12/03/2024 Perennial Dunlevy 100,000 BAU/mL Prick 0 Negative 12/03/2024 Ishan Grass 100,000 BAU/mL Prick 0 Negative 12/03/2024 Cocklebur 1:20 w/v Prick 0 Negative 12/03/2024 Beclabito, Sheep/Red 1:20 w/v Prick 0 Negative 12/03/2024 Plantain, South African 1:20 w/v Prick 0 Negative 12/03/2024 Rodriguez's Quarters 1:20 w/v Prick 0 Negative 12/03/2024 Marshelder, Burweed 1:20 w/v Prick 0 Negative 12/03/2024 Mugwort, Common 1:20 w/v Prick 0 Negative 12/03/2024 Pigweed, Rough/Redroot 1:20 w/v Prick 0 Negative 12/03/2024 Short AND Giant Ragweed Mix 1:20 w/v Prick 0 Negative Skin Test Summary: Skin Test included: 40 Prick Test(s) and 0 Intradermal Test(s) Assessment Review: Standard immunotherapy not recommended [facility] 12-03-2024 Note HNO ID: [id number] Author: EMELI WRAY MD Service: ? Author Type: Physician Type: Progress Notes Filed: 12/03/2024 16:44 Note Text: This is a request for consultation by SELF Consult requested for an opinion regarding the evaluation and treatment of the above. My final impression and recommendations will be communicated back to the requesting physician by way of the shared medical record or letter via US mail.. Recording using [employer] software for draft documentation of the visit was discussed with the patient/authorized outbound call center representative; all questions welcomed and answered. Patient/authorized outbound call center representative agreed to proceed Itzel Bo is a 59 year old patient who presents with chief complaint: rash Pruritic Rash: - Onset: April-May. - Initial location: Hairline, ears, and neck. - Progression: Spread to neck, trunk, and eyelids; described as spotty and growing. - Severity: Currently rated 7-8/10, with worst being 10/10; worsens in the evening. - Associated symptoms: Pruritus, particularly severe at night; no fluid-filled vesicles. - Aggravating factors: Use of triamcinolone cream caused burning sensation. - Alleviating factors: Temporary relief with tacrolimus ointment on eyelids. - Previous treatments: - Cortisone cream prescribed by filler sifter machine; discontinued due to pain. - Tacrolimus ointment for eyelids; provided temporary relief. - Benadryl taken twice since July. - Prednisone taper prescribed but not yet started. - Dermatology evaluation: Diagnosed with dermatitis; prescribed triamcinolone cream. - Ophthalmology evaluation: Prescribed cortisone cream for eyelids. - Suspected triggers: - Initially thought to be shampoo or laundry detergent; changes made without improvement. - Considered new medication (HCTZ) as a trigger; discontinued. - No new jewelry or hair dye used. - History of allergies to soaps. - Uses Biolage shampoo and leave-in conditioner; avoids oils due to alopecia. - Sensitive to chemical smells; experiences migraines and nausea. - No pets; moved feather pillows away. - Family history: Marfan syndrome. - Recent life changes: New job; a year ago. Answers submitted by the patient for this visit: Allergy Review of Symptoms (Submitted on 12/03/2024) Itchy Eyes: Yes Eye pain: Yes Ringing in Ears: Yes Sore throat: Yes Throat clearing: Yes Shortness of breath: Yes Wheezing: Yes Headaches: Yes A rash: Yes Itching: Yes Dry skin: Yes Flushing: Yes Patient Entered Data 12/03/2024 Collateral History Allergic rhinitis Not Sure Skin tested No Have asthma No Eczema / Dermatitis Not Sure Sinus infections Not Sure Nasal Polyps Not Sure Urticaria / Hives Yes Angioedema Not Sure Food Allergy No Stinging insect allergy Not Sure Penicillin allergy No 12/03/2024 Environmental Exposure Pets No pets Mouse infestation No Cockroach infestation No Mold or Mildew No Air conditioning Yes Dust mite covers No Cigarette / Cigar smoke No Vaping No Current Outpatient Medications Medication Sig predniSONE (DELTASONE) 10 mg tablet Take 4 tablets for 4 days, then 3 tablets for 4 days, then two tablets for 4 days, then one table for 4 days then stop. Take with breakfast. triamcinolone acetonide (KENALOG) 0.1 % cream Apply 1 application to affected area three times a day for 14 days. Apply to affected area. spironolactone (ALDACTONE) 25 mg tablet Take 1 tablet by mouth once daily. omeprazole (PRILOSEC) 20 mg capsule Take 20 mg by mouth once daily. aspirin, enteric coated (ADULT LOW DOSE ASPIRIN) 81 mg EC tablet Take 1 tablet by mouth once daily. losartan (COZAAR) 100 mg tablet Take 1 tablet by mouth once daily. atenolol (TENORMIN) 25 mg tablet Take 1 tablet by mouth once daily. No current facility-administered medications for this visit. ALLERGIES Allergen Reactions Baclofen GI Upset Cipro [Ciprofloxaci* Hives, Swelling Gabapentin Intolerance Hctz [Hydrochloroth* Rash Macrobid [Nitrofura* Hives, Swelling Sulfa (Sulfonamide * Hives, Swelling Tramadol Other: See Comments when taken with Baclofen Trimethoprim Unknown PAST MEDICAL HISTORY Diagnosis Date Aortic root dilation Cervical radiculopathy 04/03/2020 Cervical spondylosis without myelopathy 04/03/2020 Chronic mixed headache syndrome 10/31/2020 Coitus painful for female Endometriosis Family history of Marfan syndrome H/O alopecia areata Infertility, female LIPOMA OTHER SKIN AND SUBCUTANEOUS(Left back) 01/20/2005 Major depressive disorder, single episode, mild 2006 Marfan's syndrome (HCC) Lens dislocation and aortic root dilation Ovarian cyst Uterine fibroid SOCIAL HISTORY[1] FAMILY HISTORY Problem Relation Age of Onset Heart Mother Aortic disection (Marfan's syndrome) Lipids Mother other (Marfans) Mother Heart Father CAD and Heart failure Lipids Father Hypertension Father (more content not included)... [facility] 12-03-2024 Note HNO ID: [id number] Author: KONSTANTIN RIVER MD Service: ? Author Type: Physician Type: Progress Notes Filed: 12/03/2024 17:56 Note Text: Itzel Soriano is a 59 year old female who presents for problem visit - perineal skin change. HPI: Patient has not been using Clobetasol cream as prescribed. She was having pruritus around anus with some bleeding. She suspects the bleeding was from excoriations around anus. Stools have become looser and smaller in caliber. 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 Has engaged in anal intercourse in the past. Patient had a picture on her phone of tea anal erythema and excoriations that she had been experiencing. OB History Gravida0 Para0 Term0 Preterm0 AB0 Living0 SAB0 IAB0 Ectopic0 Multiple0 Live Births0 Quality Rep History LMP: 07/11/2024 (Within Days), Having periods Age at Menarche: 14 Age at First : Age at Menopause: Quality Rep History Comments: Sexual Activity: Not Asked; Male; not asked Contraception: None Menstrual Tracking History Flowsheet Row Office Visit from 05/11/2024 in OB/Gynecology Period Cycle (Days) 28 Period Duration (Days) 6 Menstrual Flow Heavy PAST MEDICAL HISTORY Diagnosis Date Aortic root dilation Cervical radiculopathy 04/03/2020 Cervical spondylosis without myelopathy 04/03/2020 Chronic mixed headache syndrome 10/31/2020 Coitus painful for female Endometriosis Family history of Marfan syndrome H/O alopecia areata Infertility, female LIPOMA OTHER SKIN AND SUBCUTANEOUS(Left back) 01/20/2005 Major depressive disorder, single episode, mild 2006 Marfan's syndrome (HCC) Lens dislocation and aortic root dilation Ovarian cyst Uterine fibroid PAST SURGICAL HISTORY Procedure Laterality Date CATARACT SURGERY, COMPLEX Right 05/15/1992 CLEAR LENSECTOMY Left 03/24/2001 Left Lensectomy and anterior Chamber IOL Placement- Performed by Dr. Roberto Lucero CLEAR LENSECTOMY Right 09/19/2013 Lensectomy with Anterior Chamber IOL Placement- Performed by Dr. Jomar Lucero COLONOSCOPY SCREENING 01/16/2019 [facility]. Negative. Repeat 10 years. EXCISION TUMOR SOFT TISSUE BACK/FLANK SUBQ <3CM 01/27/2007 left scapular FNA WITH IMAGING Left 01/10/2015 U/S FNA left breast 3 Oclock LAPS ABD PRTMANDOMENTUM DX W/WO SPEC BR/WA SPX 1981 Laparoscopy LASER IRIDOTOMY,IRIDECTOMY, ONE EYE Right 05/16/1992 LASER IRIDOTOMY,IRIDECTOMY, ONE EYE Left 03/24/2001 [facility] CORNEO-SCLL SCTJ Bilateral Insert lens prosthesis RPR 1ST INGUN HRNA AGE 5 YRS/> REDUCIBLE 1996 Hernia repair, inguinal FAMILY HISTORY Problem Relation Age of Onset Heart Mother Aortic disection (Marfan's syndrome) Lipids Mother other (Marfans) Mother Heart Father CAD and Heart failure Lipids Father Hypertension Father Heart Sister Cataract Sister Detached Retina Sister Cataract Sister Cataract Sister Blindness Sister other (Marfan's ) Sister Cataract Brother other (Aortic dissection) Brother Cataract Brother other (Aortic aneurysms) Brother Breast Cancer Paternal Grandmother BREAST Diabetes Paternal Grandmother SOCIAL HISTORY[1] Current Outpatient Medications Medication Sig spironolactone (ALDACTONE) 25 mg tablet Take 1 tablet by mouth once daily. omeprazole (PRILOSEC) 20 mg capsule Take 20 mg by mouth once daily. aspirin, enteric coated (ADULT LOW DOSE ASPIRIN) 81 mg EC tablet Take 1 tablet by mouth once daily. losartan (COZAAR) 100 mg tablet Take 1 tablet by mouth once daily. atenolol (TENORMIN) 25 mg tablet Take 1 tablet by mouth once daily. predniSONE (DELTASONE) 10 mg tablet Take 4 tablets for 4 days, then 3 tablets for 4 days, then two tablets for 4 days, then one table for 4 days then stop. Take with breakfast. triamcinolone acetonide (KENALOG) 0.1 % cream Apply 1 application to affected area three times a day for 14 days. Apply to affected area. No current facility-administered medications for this visit. Allergies As of Date: 12/03/2024 Allergen Noted Reaction BACLOFEN 11/30/2019 GI Upset CIPRO [CIPROFLOXACIN] 01/03/2007 Hives and Swelling GABAPENTIN 11/30/2019 Intolerance HCTZ [HYDROCHLOROTHIAZIDE] 11/19/2024 Rash MACROBID [NITROFURANTOIN MONOHYD/*01/03/2007 Hives and Swelling SULFA (SULFONAMIDE ANTIBIOTICS) 01/20/2005 Hives and Swelling TRAMADOL 12/13/2019 Other: See Comments TRIMETHOPRIM 06/27/2024 Unknown Fully Assessed 12/03/2024 REVIEW OF SYSTEMS Expanded ROS: N/A Allergies and current medication updated:Yes SENSITIVE EXAM: The sensitive examination was discussed with the Patient or Patient's Authorized Business Applications Analyst. As applicable, any other physician, advance practice provider, medical student, or other health professional student that will be observing or involved in the sensitive examination for educational or training purposes was discussed with the Patient or Authorized Business Applications Analyst. The Patient or Authorized Business Applications Analyst has agreed to proceed with the s (more content not included)... [facility] 11-30-2024 Note HNO ID: [id number] Author: GEO SIMON APRN.SHANKER OUT Service: ? Author Type: Nurse Specialist Type: Progress Notes Filed: 11/30/2024 09:56 Note Text: Subjective Patient ID: Itzel is a 59 year old female who presents for Rash (Itchy rash for months. Stop hydrochloride 10 days ago. But still with itchy rash. Sore with the rash.). HPI The patient is a 59-year-old female presenting for evaluation of a persistent pruritic rash. Pruritic Rash: - Diffuse pruritic rash involving the axillae, hairline, ears, eyelids, neck, elbows, and wrists. - Rash has been present for several months, with varying severity and location. - Initially more severe around the anterior neck, causing burning pain and intense pruritus. - Currently described as horrible and itchy, with some areas bleeding due to scratching. - Denies known trauma or injury. - Rash has been evaluated by dermatology at [facility]; prescribed topical tacrolimus, which caused burning sensation and was discontinued. - Has not applied tacrolimus to axillae due to fear of adverse effects. - Scheduled for a video visit with [facility] dermatology on the . - Has tried Benadryl, which causes significant sedation. - Allergic to multiple soaps, suspects possible allergies to shampoo and laundry detergent. - Denies presence of insects in the home. - Family history of similar rash in . - Denies presence of rash under the breasts. - Denies presence of a butterfly rash on the face. Joint Pain: - Previous joint pain, now resolved since onset of pruritic rash. - Evaluated by rheumatology (Dr. Brooke) for joint pain; prescribed medication (name unknown) and ordered lab work, which was not completed. - Suspects joint pain may be related to pinched nerves (C5-C7) and has been advised to consider neck surgery. - Scheduled for follow-up with spine surgeon in 6 months. ROS Constitutional: (+) malaise Skin: (+) pruritus, (+) rash on armpits/hairline/ears/eyelids/neck /arms/elbows/belly/wrists, (+) burning skin pain anterior neck, (+) skin bleeding, (-) rash under breasts Musculoskeletal: (-) joint pain Objective BP 108/76 Pulse 69 Resp 16 Wt 92.7 kg (204 lb 5.9 oz) LMP 07/11/2024 (Within Days) SpO2 99% BMI 31.78 kg/m? Physical Exam Vitals and nursing note reviewed. Constitutional: Appearance: Normal appearance. HENT: Head: Normocephalic and atraumatic. Eyes: Conjunctiva/sclera: Conjunctivae normal. Cardiovascular: Rate and Rhythm: Normal rate. Pulmonary: Effort: Pulmonary effort is normal. Musculoskeletal: Right lower leg: No edema. Left lower leg: No edema. Skin: General: Skin is warm and dry. Comments: Pruritic rash under both forearms arms, erythematous, raised, diffuse spread. Erythematous rash both axilla, flat. Erythematous raised rash with silver plaque posterior neck Neurological: General: No focal deficit present. Mental Status: She is alert and oriented to person, place, and time. 1. Pruritic rash (L28.2) 2. 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 Deferred antifungal treatment for axillae today. - Differential includes psoriatic arthritis given concurrent joint pain and cutaneous findings. - Start prednisone taper to reduce inflammation and pruritus. - Start topical Kenalog cream to affected areas (arms, neck). - Start topical antifungal cream to axillary regions. - Advised to avoid scratching to prevent skin breakdown and secondary infection. - Reviewed Rheumatology notes from Dr. Brooke regarding prior evaluation and recommended lab workup for inflammatory arthritis; did not complete labs. - Order rheumatologic labs to evaluate for autoimmune etiology, including lupus which Itzel Soriano is concerned about. - Refer to Rheumatology at [facility] for further evaluation and management. - Advised to follow up with Dermatology (video visit scheduled on the ) for further evaluation and management of rash. 1-3 mo follow up Lenny Dumas MD or Geo Simon APRN.SHANKER OUT Advised: - Start the oral prednisone taper as prescribed, taking the higher initial dose and tapering down over several days. - Apply Kenalog (triamcinolone) topical steroid cream to your neck, arms, and any other areas where you feel itching or see a rash. - Complete the blood tests today that we will screen for rheumatological disorder. -Make an appointment with rheumatology. - Your dermatology video visit is scheduled for the 8th as planned. Let us know if your rash is not improving. - An allergy/immunology consultation may be considered if current treatments and test are not revealing for cause. Geo Simon APRN.SHANKER OUT Medical Decision Making: Problems: Moderate: New problem with uncertain prognosis Data: Unique te (more content not included)... [facility] 11-29-2024 Note HNO ID: [id number] Author: OSEAS BARRIOS RT(Christian) Service: ? Author Type: Technologist Type: Progress Notes Filed: 11/29/2024 11:09 Note Text: Radiology Service Progress Note PATIENT NAME: Itzel Soriano DATE OF SERVICE: November 29, 2024 TIME: 11:02 AM PATIENT IDENTITY VERIFICATION COMPLETED USING TWO (2) IDENTIFIERS: Name and Date of confirmed by patient verbally. FALL SCREENING: Has the patient had 2 falls in the last year or 1 fall with injury or currently using an Ambulatory Assistive Device (Walker, Cane, Wheelchair, Crutches, etc.)? No PATIENT GENDER DATA: Assigned female at . status: : No status: NO. PATIENT RELEVANT IMPLANT DATA REVIEWED: Not Applicable PATIENT PRESENTS WITH AN IMPLANTABLE OR ATTACHED DISCHARGE SPECIALIST: No RADIOLOGY DEPARTMENT: Bone Density PERIPHERAL IV DATA: Not applicable SIGNED BY: RT Viral(R) November 29, 2024 11:02 AM [facility] 11-06-2024 Telephone encounter Note Patient calls and is requesting General Surgery Consult to be faxed to [facility]. Consult faxed as requested by patient. Tash Greene RN [facility] 11-06-2024 Miscellaneous Notes Patient calls and is requesting General Surgery Consult to be faxed to [facility]. Consult faxed as requested by patient. Tash Greene RN documented in this encounter [facility] 11-06-2024 Note HNO ID: [id number] Author: ZEINA BELLA RPFT Service: ? Author Type: Respiratory Therapist Type: Procedures Filed: 11/06/2024 08:13 Note Text: RESPIRATORY THERAPY ORAL EXHALED NITRIC OXIDE SERVICE DATE: 11/06/2024 SERVICE TIME: 8:13 AM Oral Exhaled Nitric Oxide measurement: 20.0 (ppb) Normal: Adult <25 ppb, pediatric (<12 years) <20 ppb High Normal / Increased: Adult 25-50 ppb, pediatric (<12 years) 20-35 ppb Moderately raised exhaled Nitric Oxide may indicate underlying inflammation, but note that: Cold and influenza can raise exhaled Nitric Oxide and some patients have higher baseline exhaled Nitric Oxide levels than others. High: Adult >50 ppb, pediatric (<12 years) >35 ppb Indicative of ongoing eosinophilic inflammation. Symptomatic patient likely to respond to steroids. Possible causes (if already on steroids): Poor compliance, recent allergen exposure, steroid dose inadequate, and steroid resistance. Note that not all patients with high exhaled nitric oxide levels display symptoms. Oral Exhaled Nitric Oxide measurement (Previous Encounters) Test Date Oral Exhaled Nitric Oxide (ppb) 11/06/2024 20.0 NAME: Zeina HECTOR Bella PATIENT NAME: Itzel Soriano DATE: November 06, 2024 TIME: 8:13 AM [facility] 11-06-2024 Procedure note Associated Ord er(s): NITRIC OXIDE, EXHALED RESPIRATORY THERAPY ORAL EXHALED NITRIC OXIDE SERVICE DATE: 11/06/2024 SERVICE TIME: 8:13 AM Oral Exhaled Nitric Oxide measurement: 20.0 (ppb) Normal: Adult <25 ppb, pediatric (<12 years) <20 ppb High Normal / Increased: Adult 25-50 ppb, pediatric (<12 years) 20-35 ppb Moderately raised exhaled Nitric Oxide may indicate underlying inflammation, but note that: Cold and influenza can raise exhaled Nitric Oxide and some patients have higher baseline exhaled Nitric Oxide levels than others. High: Adult >50 ppb, pediatric (<12 years) >35 ppb Indicative of ongoing eosinophilic inflammation. Symptomatic patient likely to respond to steroids. Possible causes (if already on steroids): Poor compliance, recent allergen exposure, steroid dose inadequate, and steroid resistance. Note that not all patients with high exhaled nitric oxide levels display symptoms. Oral Exhaled Nitric Oxide measurement (Previous Encounters) Test Date Oral Exhaled Nitric Oxide (ppb) 11/06/2024 20.0 NAME: Zeina HECTOR Bella PATIENT NAME: Itzel Soriano DATE: November 06, 2024 TIME: 8:13 AM [facility] 11-06-2024 Procedure note Associated Ord er(s): NITRIC OXIDE, EXHALED RESPIRATORY THERAPY ORAL EXHALED NITRIC OXIDE SERVICE DATE: 11/06/2024 SERVICE TIME: 8:13 AM Oral Exhaled Nitric Oxide measurement: 20.0 (ppb) Normal: Adult <25 ppb, pediatric (<12 years) <20 ppb High Normal / Increased: Adult 25-50 ppb, pediatric (<12 years) 20-35 ppb Moderately raised exhaled Nitric Oxide may indicate underlying inflammation, but note that: Cold and influenza can raise exhaled Nitric Oxide and some patients have higher baseline exhaled Nitric Oxide levels than others. High: Adult >50 ppb, pediatric (<12 years) >35 ppb Indicative of ongoing eosinophilic inflammation. Symptomatic patient likely to respond to steroids. Possible causes (if already on steroids): Poor compliance, recent allergen exposure, steroid dose inadequate, and steroid resistance. Note that not all patients with high exhaled nitric oxide levels display symptoms. Oral Exhaled Nitric Oxide measurement (Previous Encounters) Test Date Oral Exhaled Nitric Oxide (ppb) 11/06/2024 20.0 NAME: HECTOR Castrejon PATIENT NAME: Itzel Soriano DATE: November 06, 2024 TIME: 8:13 AM documented in this encounter [facility] 11-01-2024 Instructions Ben Franklin APRN.NEEDLE LOOM WEAVER - 11/01/2024 9:[address] Lung Screen Results The CT scan that you will have done will show if you have any nodules (small spots) in your lungs that are suspicious for cancer. Around 90% of the patients who have this scan done are found to have at least one nodule. Most nodules are benign (not cancer) and of no harm to you at all. A specialist will make a scientific evaluation about whether or not a nodule is worrisome based on its size and shape. The radiologist who will read your scan will put it into one of four categories: LUNG-RADS Category Description Overall Probability of Malignancy Recommended Follow-Up 1 Negative No nodules and definitely benign (non-cancerous nodules) Essentially 0. 1 Year - Follow-up Low dose CT 2 Benign Appearance or Behavior Nodules with a very low likelihood of becoming cancer due to size or lack of growth Less than 1% 1 Year - Follow-up Low dose CT 3 Probably Benign Probably benign finding, short term follow-up recommended 1 to 2% 6 Months - Follow-up Low dose CT 4 Suspicious Findings for which additional diagnostic testing and/or biopsy is recommended Will be calculated based on nodule characteristics. Dependent on what is seen on the exam. (3 month follow-up CT, PET-CT, or biopsy) 0 Incomplete Findings suggestive of an inflammatory or infectious process AND/OR part of the lung cannot be evaluated Additional lung cancer screening CT imaging needed AND/OR comparison with prior chest CT imaging At times, we may see something outside of the lungs on the scan that could be a health concern. Below are some of the most common findings: S Clinically Significant or Potentially Clinically Significant Findings (non lung cancer) Referral or additional imaging/labs depending on result. Approximately 10% of people receive this result. Coronary Artery Calcifications (Moderate or Severe) - Referral to cardiology for further work-up and recommendations. Thyroid Nodule - TSH level and Thyroid Ultrasound dependent on size, referral to endocrinology. Adrenal Nodule - blood work and referral to endocrinology. Others Lung Cancer Screening hotline: [phone] Lung Cancer Screening [phone] Billing Questions: or [email or web address] Specialist Providers: (Merna Dejesus PA-C; Shanelle Ramírez CNP; Arielle Spangler CNP, Bo Oneil CNP; Bibi Pineda CNP; Martina Slaughter PA-C; Ben Franklin CNP; Evelyne Magaña CNP; Ana Lilia Torres CNP; Bea Parish CNP; Jesi De Santiago PA-C; Maci Edwards PA-C; Araseli Winchester CNP; Annetta Carrera CNP; Lizandro Moura CNP): [phone] documented in this encounter [facility] 11-01-2024 Note HNO ID: [id number] Author: BEN FRANKLIN APRN.CNP Service: ? Author Type: Nurse Practitioner Type: Progress Notes Filed: 11/01/2024 15:22 Note Text: LUNG SCREENING VISIT PRIMARY CARE PHYSICIAN: Lenny Dumas MD PULMONARY PROVIDER: none Results will be communicated via letter or electronic record if applicable. Visit Delivery: In Person Patient Visit Type: New to Screening Current or Ex-smoker? Ex Exam Type: baseline LDCT Number of Pack Years: 33 Current smoker (=0) or Number of Years since Quit: 11 REQUESTER: The referring provider advised the patient to have screening. HISTORY OF PRESENT ILLNESS: Itzel Soriano is a 58 year old Former smoker who presents for lung screening. Follows with cardiology for Marfan's syndrome. Has CTA every 2 years. Chest pain ongoing issue, not worse. Has noticed increased shortness of breath. 2013 PFT were normal. Respiratory symptoms include: SOB: Yes, at times feels it is getting worse vacuuming last week, with a flight of stairs, started walking Chest tightness: No Coughing: Yes: Without mucus Hemoptysis: No Wheezing: Yes, morning and at night sounds more like crackling Fever/Chills: No Recent Respiratory Infection: No Unintentional weight loss: No Last 6 Encounter Wt Readings: Date: Wt: 11/01/2024 94.8 kg (209 lb) 09/26/2024 93.8 kg (206 lb 12.7 oz) 07/20/2024 95.7 kg (210 lb 15.7 oz) 07/11/2024 93.4 kg (206 lb) 05/29/2024 95.3 kg (210 lb 1.6 oz) 05/11/2024 94.8 kg (209 lb) ECOG PERFORMANCE STATUS: 0- Fully active, able to carry on all pre-disease performance w/o restriction. Modified Medical Research [place] Dyspnea Scale (MMRC) On level ground I walk slower than people of the same age because of breathlessness, or have to stop for breath when walking at my own pace 2 PAST MEDICAL HISTORY Diagnosis Date Aortic root dilation Cervical radiculopathy 04/03/2020 Cervical spondylosis without myelopathy 04/03/2020 Chronic mixed headache syndrome 10/31/2020 Coitus painful for female Endometriosis Family history of Marfan syndrome H/O alopecia areata Infertility, female LIPOMA OTHER SKIN AND SUBCUTANEOUS(Left back) 01/20/2005 Major depressive disorder, single episode, mild 2006 Marfan's syndrome (HCC) Lens dislocation and aortic root dilation Ovarian cyst Uterine fibroid PAST SURGICAL HISTORY Procedure Laterality Date CATARACT SURGERY, COMPLEX Right 05/15/1992 CLEAR LENSECTOMY Left 03/24/2001 Left Lensectomy and anterior Chamber IOL Placement- Performed by Dr. Roebrto Lucero CLEAR LENSECTOMY Right 09/19/2013 Lensectomy with Anterior Chamber IOL Placement- Performed by Dr. Jomar Lucero COLONOSCOPY SCREENING 01/16/2019 [facility]. Negative. Repeat 10 years. EXCISION TUMOR SOFT TISSUE BACK/FLANK SUBQ <3CM 01/27/2007 left scapular FNA WITH IMAGING Left 01/10/2015 U/S FNA left breast 3 Oclock LAPS ABD PRTMANDOMENTUM DX W/WO SPEC BR/WA SPX 1981 Laparoscopy LASER IRIDOTOMY,IRIDECTOMY, ONE EYE Right 05/16/1992 LASER IRIDOTOMY,IRIDECTOMY, ONE EYE Left 03/24/2001 RMVL SEC MEMBRANOUS CTRC CORNEO-SCLL SCTJ Bilateral Insert lens prosthesis RPR 1ST INGUN HRNA AGE 5 YRS/> REDUCIBLE 1996 Hernia repair, inguinal FAMILY HISTORY Problem Relation Age of Onset Heart Mother Aortic disection (Marfan's syndrome) Lipids Mother other (Marfans) Mother Heart Father CAD and Heart failure Lipids Father Hypertension Father Heart Sister Cataract Sister Detached Retina Sister Cataract Sister Cataract Sister Blindness Sister other (Marfan's ) Sister Cataract Brother other (Aortic dissection) Brother Cataract Brother other (Aortic aneurysms) Brother Breast Cancer Paternal Grandmother BREAST Diabetes Paternal Grandmother omeprazole (PRILOSEC) 20 mg capsule Take 20 mg by mouth once daily. aspirin, enteric coated (ADULT LOW DOSE ASPIRIN) 81 mg EC tablet Take 1 tablet by mouth once daily. hydroCHLOROthiazide 25 mg tablet Take 1 tablet by mouth once daily. losartan (COZAAR) 100 mg tablet Take 1 tablet by mouth once daily. atenolol (TENORMIN) 25 mg tablet Take 1 tablet by mouth once daily. mupirocin (BACTROBAN) 2 % ointment Apply to affected area three times a day. Treat for 10 days or as directed. Apply intranasal (Patient not taking: Reported on 11/01/2024) tacrolimus (PROTOPIC) 0.03 % ointment Apply to affected area once daily. (Patient not taking: Reported on 11/01/2024) ALLERGIES Allergen Reactions Baclofen GI Upset Cipro [Ciprofloxaci* Hives, Swelling Gabapentin Intolerance Macrobid [Nitrofura* Hives, Swelling Sulfa (Sulfonamide * Hives, Swelling Tramadol Other: See Comments when taken with Baclofen Trimethoprim Unknown The medications and allergies were reviewed and reconciled for this patient and deemed current. Lung Cancer Risk Factors: 1.Tobacco Use: Start Age 14, Quit Age: 47, Average packs per day 1, Pack Years 33 2. Passive Smoke (more content not included)... [facility] 11-01-2024 History of Present illness Narrative Images from the original note were not included. LUNG SCREENING VISIT PRIMARY CARE PHYSICIAN: Lenny Dumas MD PULMONARY PROVIDER: none Results will be communicated via letter or electronic record if applicable. Visit Delivery: In Person Patient Visit Type: New to Screening Current or Ex-smoker? Ex Exam Type: baseline LDCT Number of Pack Years: 33 Current smoker (=0) or Number of Years since Quit: 11 REQUESTER: The referring provider advised the patient to have screening. HISTORY OF PRESENT ILLNESS: Itzel Soriano is a 58 year old Former smoker who presents for lung screening. Follows with cardiology for Marfan's syndrome. Has CTA every 2 years. Chest pain ongoing issue, not worse. Has noticed increased shortness of breath. 2012 PFT were normal. Respiratory symptoms include: SOB: Yes, at times feels it is getting worse vacuuming last week, with a flight of stairs, started walking Chest tightness: No Coughing: Yes: Without mucus Hemoptysis: No Wheezing: Yes, morning and at night sounds more like crackling Fever/Chills: No Recent Respiratory Infection: No Unintentional weight loss: No Last 6 Encounter Wt Readings: Date: Wt: 11/01/2024 94.8 kg (209 lb) 09/26/2024 93.8 kg (206 lb 12.7 oz) 07/20/2024 95.7 kg (210 lb 15.7 oz) 07/11/2024 93.4 kg (206 lb) 05/29/2024 95.3 kg (210 lb 1.6 oz) 05/11/2024 94.8 kg (209 lb) ECOG PERFORMANCE STATUS: 0- Fully active, able to carry on all pre-disease performance w/o restriction. Modified Medical Research [place] Dyspnea Scale (MMRC) On level ground I walk slower than people of the same age because of breathlessness, or have to stop for breath when walking at my own pace 2 PAST MEDICAL HISTORY Diagnosis Date Aortic root dilation Cervical radiculopathy 04/03/2020 Cervical spondylosis without myelopathy 04/03/2020 Chronic mixed headache syndrome 10/31/2020 Coitus painful for female Endometriosis Family history of Marfan syndrome H/O alopecia areata Infertility, female LIPOMA OTHER SKIN & SUBCUTANEOUS(Left back) 01/20/2005 Major depressive disorder, single episode, mild 2007 Marfan's syndrome (HCC) Lens dislocation and aortic root dilation Ovarian cyst Uterine fibroid PAST SURGICAL HISTORY Procedure Laterality Date CATARACT SURGERY, COMPLEX Right 05/15/1992 CLEAR LENSECTOMY Left 03/24/2001 Left Lensectomy and anterior Chamber IOL Placement- Performed by Dr. Roberto Lucero CLEAR LENSECTOMY Right 09/19/2013 Lensectomy with Anterior Chamber IOL Placement- Performed by Dr. Jomar Lucero COLONOSCOPY SCREENING 01/16/2019 [facility]. Negative. Repeat 10 years. EXCISION TUMOR SOFT TISSUE BACK/FLANK SUBQ <3CM 01/27/2007 left scapular FNA WITH IMAGING Left 01/10/2015 U/S FNA left breast 3 Oclock LAPS ABD PRTM&OMENTUM DX W/WO SPEC BR/WA SPX 1981 Laparoscopy LASER IRIDOTOMY,IRIDECTOMY, ONE EYE Right 05/16/1992 LASER IRIDOTOMY,IRIDECTOMY, ONE EYE Left 03/24/2001 RMVL SEC MEMBRANOUS CTRC CORNEO-SCLL SCTJ Bilateral Insert lens prosthesis RPR 1ST INGUN HRNA AGE 5 YRS/> REDUCIBLE 1996 Hernia repair, inguinal FAMILY HISTORY Problem Relation Age of Onset Heart Mother Aortic disection (Marfan's syndrome) Lipids Mother other (Marfans) Mother Heart Father CAD and Heart failure Lipids Father Hypertension Father Heart Sister Cataract Sister Detached Retina Sister Cataract Sister Cataract Sister Blindness Sister other (Marfan's ) Sister Cataract Brother other (Aortic dissection) Brother Cataract Brother other (Aortic aneurysms) Brother Breast Cancer Paternal Grandmother BREAST Diabetes Paternal Grandmother omeprazole (PRILOSEC) 20 mg capsule Take 20 mg by mouth once daily. aspirin, enteric coated (ADULT LOW DOSE ASPIRIN) 81 mg EC tablet Take 1 tablet by mouth once daily. hydroCHLOROthiazide 25 mg tablet Take 1 tablet by mouth once daily. losartan (COZAAR) 100 mg tablet Take 1 tablet by mouth once daily. atenolol (TENORMIN) 25 mg tablet Take 1 tablet by mouth once daily. mupirocin (BACTROBAN) 2 % ointment Apply to affected area three times a day. Treat for 10 days or as directed. Apply intranasal (Patient not taking: Reported on 11/01/2024) tacrolimus (PROTOPIC) 0.03 % ointment Apply to affected area once daily. (Patient not taking: Reported on 11/01/2024) ALLERGIES Allergen Reactions Baclofen GI Upset Cipro [Ciprofloxaci* Hives, Swelling Gabapentin Intolerance Macrobid [Nitrofura* Hives, Swelling Sulfa (Sulfonamide * Hives, Swelling Tramadol Other: See Comments when taken with Baclofen Trimethoprim Unknown The medications and allergies were reviewed and reconciled for this patient and deemed current. Lung Cancer Risk Factors: 1.Tobacco Use: Start Age 14, Quit Age: 47, Average packs per day 1, Pack Years 33 2. Passive Smoke Exposure: Yes, as a Child and as an Adult 3. Personal hx of malignancy: No, Type of Cancer: 4. Significant exposures (1 year or more of exposure): Dusts, 5. Race: White 6. Education: Some College 7. BMI:Body mass index is 31.78 kg/m . Patient-entered Height: 5'8 Patient-entered Weight: 210 pounds 8. COPD: No 9. Pneumonia in the past 5 years: No 10. Is there a history of lung cancer in a first degree relative? No 11. Is there a history of lung cancer in a non-first degree relative? No 12. Is there a history of any other cancer in a first degree relative? No Health Maintenance Immunization History Administered Date(s) Administered COVID-19 original vaccine, age 12+ yr, monovalent (WorkecNTLevanta - HOGAN TOP) 06/30/2021 COVID-19 original vaccine, age 12+ yr, monovalent (PFIZER-BIONTECH - PURPLE TOP) 01/06/2021 COVID-19 vaccine (DAMIEN) 05/08/2020 COVID-19 vaccine, age 12+ yr (MODERNA) 01/06/2023 09/29/2023 COVID-19 vaccine, age 12+ yr (PFIZER-BIONTECH COMIRNATY) 02/15/2024 COVID-19 vaccine, age 12+ yr, bivalent (GIS CloudBIOTacit InnovationsECH) 11/17/2021 influenza (IIV3) vaccine, trivalent (AFLURIA, FLULAVAL, FLUVIRIN, FLUZONE) 12/09/2020 influenza (IIV3) vaccine, trivalent, PF (AFLURIA, FLUARIX, FLULAVAL, FLUVIRIN, FLUZONE) 01/25/2024 influenza (IIV4) vaccine, age 6 mo - 64 yr, quadrivalent (AFLURIA, FLULAVAL, FLUZONE) 12/13/2019 influenza (IIV4) vaccine, age 6 mo - 64 yr, quadrivalent, PF (AFLURIA, FLUARIX, FLULAVAL, FLUZONE) 12/09/2020 12/28/2021 12/29/2022 pneumococcal conjugate (PCV20) vaccine, 20 valent (PREVNAR 20) 03/10/2024 tetanus diphtheria pertussis (Tdap) vaccine, age 7+ yr (ADACEL, BOOSTRIX) 02/28/2009 12/14/2021 zoster (RZV) vaccine, recombinant (SHINGRIX) 08/24/2019 12/06/2019 Colonoscopy: Mammogram: 05/12/2024 DATA REVIEW I have directly visualized the testing documented: 10/19/2023 CTA Chest, and 09/19/2024 CT Calcium Scoring from OSH Prior Imaging: Last CT/CTA Chest/Lungs CTA CHEST (GATED) W IVCON Exam End: 10/19/2023 8:03 AM (Final result) Narrative: * * *Final Report* * * DATE OF EXAM: Oct 19 2023 8:03AM JQC 0125 - CTA CHEST (GATED) W IVCON / PROCEDURE REASON: multiple diagnoses * * * * Physician Interpretation * * * * CTA Aorta chest Direct Image Comparison: CTAs between 06/10/2017and 04/12/2012 HISTORY: 57 years old Female with chronic h/o ectasia/mild dilation aortic root Evaluation for interval change. There is request to define thoracic and aortic anatomy TECHNIQUE: SCANNER: Siemens Definition Force Dual source [id number] scanner PROTOCOL: Prospectively triggered helical high-pitch acquisitions (triggered Flash-mode) was performed following the intravenous administration of contrast material. Scan Range: thoracic inlet to the diaphragm CT Dose-Length Product (DLP): 222 mGy*cm CT Dose Reduction Employed: Automated exposure control(AEC) and iterative recon CONTRAST: IV administration of 80 ml Omnipaque 350 Scan acquisition: uncomplicated Macro Version: [id number] For optimization of anatomic evaluation, advanced 3-D off-line postprocessing was performed on a dedicated workstation by the interpreting physician. Additional lung CAD. Miner images reconstructed, saved, and available in Perfect Memory 'Get Images'. STUDY LIMITATIONS: Limited contrast enhancement of the right sided cardiac chambers and pulmonary artery.. RESULT: LINES, TUBES and DEVICES: None CHEST: Chest wall anatomy: mild pectus excavatum. - again seen are enlarged bilateral axillary lymph nodes, stable since 2012. Clinical correlation is recommended LUNGS: unremarkable. MEDIASTINUM: small mediastinal lymph nodes, which are not pathologic by size criteria. PERICARDIUM: unremarkable CENTRAL PULMONARY ARTERY: normal dimensions. Assessment is limited due to limited contrast enhancement. CARDIAC CHAMBERS: LEFT VENTRICLE: normal size. RIGHT VENTRICLE: normal size Left atrium: prominent. Small outpouching at the roof of the left atrium, most c/w small diverticulum. DOMONIQUE: normal. Right atrium: normal size CENTRAL VENOUS and PULMONARY VENOUS RETURN: normal. Coronary Sinus: normal size MITRAL VALVE: assessment is limited in the current study - no leaflet calcification. No annular calcification TRICUSPID and PULMONIC VALVE: appear unremarkable. CORONARY ANATOMY: normal origin of the coronary arteries. -short directly epicardial course of the mid LAD, bridged by shallow layer of muscle bundles crossing from LV to RV myocardium No definitive evidence of calcified atherosclerotic changes of the coronary arteries. AORTIC VALVE: appears trileaflet. No leaflet calcification. AORTA: Pathology: No acute aortic pathology. Intervention: None Complications: n/a Aortic Size: Ectasia/Mild Dilation aortic root. The remaining segments of the thoracic aorta are normal in size STJ: maintained. Wall Changes: Mild partially calcified wall changes descending thoracic aorta. Arch Branch Vessels: Unremarkable proximal segments of the arch branch vessels. AORTIC DIMENSIONS: ANNULUS: max. and min. Diameter: 2.5 x 2.1 cm. AREA 4.2 cm2 AORTIC ROOT: 4.4 x 4.2 cm measured [id number] No significant interval change mid ASCENDING THORACIC AORTA: 3.4 cm mid AORTIC ARCH: 2.6 cm mid DESCENDING THORACIC AORTA: 2.4 cm limited upper ABDOMEN: small cystic lesions of the liver Pipelines Laborer (topogram) images: No additional findings. Impression: IMPRESSION: AORTIC VALVE: appears trileaflet. No leaflet calcification. STABLE ECTASIA/MILD DILATION AORTIC ROOT: 4.4 x 4.2 cm CHEST: Chest wall anatomy: mild pectus excavatum. - again seen are enlarged bilateral axillary lymph nodes, stable since 2012. Clinical correlation is recommended Tray Checker: ARCELIA Transcribe Date/Time: Oct 19 2023 8:29A Dictated by : ROBIN HESS MD This examination was interpreted and the report reviewed and electronically signed by: BELINDA EDMONDS MD on Oct 19 2023 9:47AM EST Last CT Chest - Impression Only CTA CHEST (GATED) W IVCON Exam End: 10/19/2023 8:03 AM (Final result) Impression: IMPRESSION: AORTIC VALVE: appears trileaflet. No leaflet calcification. STABLE ECTASIA/MILD DILATION AORTIC ROOT: 4.4 x 4.2 cm CHEST: Chest wall anatomy: mild pectus excavatum. - again seen are enlarged bilateral axillary lymph nodes, stable since 2012. Clinical correlation is recommended ... Last XR Chest - Impression Only XR CHEST 2V FRONTAL/LAT Exam End: 08/11/2022 4:59 PM (Final result) Impression: IMPRESSION: No acute radiographic abnormality. ... Pulmonary Function Testing: PFT: GALE/LUNG VOL/DLCO ([id number]) - ordered on 04/13/12 [facility] Pre- % Date [id number] Time 11:36AM Height 170.7 Weight 81.3 FVC 4.03 3.27 4.55 113 FEV 1 3.23 2.58 3.58 111 FEV1%F 81.25 71.45 78.62 97 FEV 3 3.64 3.02 4.17 114 FEV3%E 94.83 89.47 91.58 97 FEV6 4.38 PEF 6.50 4.77 7.24 111 MEF 50 3.88 2.71 4.40 113 FIF 50 4.56 F25/75 3.14 1.78 3.35 107 FE%FIF 96.40 FET 15.13 FRCpl 3.10 2.04 2.51 81 ERV 0.65 RV 1.85 1.07 1.86 101 VC 4.03 3.27 4.23 105 TLC 5.53 4.46 6.09 110 RV%TLC 33.07 22.07 30.56 92 DLCO 24.59 18.08 22.41 91 DL/VA 4.53 3.21 3.91 86 VA 5.59 4.49 5.74 103 ANA 4.03 3.27 4.39 109 Test no. 1 04/13/2012 03:54:27PM ATS acceptability and repeatability standards for spirometry met. All lung volume repeatability criteria met. ATS acceptability and repeatability standards for DLCO met. No hemoglobin available for correction of DLCO. / LF Impression: 1. Spirometry is normal. 2. The measured lung volumes are normal. 3. The diffusing capacity is normal. Fellow: Henry Dumont M.D. I have reviewed the findings, made appropriate revisions and agree with the transcribed interpretation. Signature: Staff Reviewer: Zach Velázquez M.D. PHYSICAL EXAM: BP 110/72 (BP Site: Right Arm, BP Position: Sitting, BP Cuff Size: Large Adult) Pulse 62 Resp 14 Ht 172.7 cm (5' 8) Wt 94.8 kg (209 lb) LMP 07/11/2024 (Within Days) SpO2 97% BMI 31.78 kg/m Deferred ASSESSMENT and RECOMMENDATIONS: 1. Screening for lung cancer: Six year risk for lung cancer: 0.65% I have determined that the patient is eligible for a low dose CT based on age, absence of signs or symptoms of lung cancer, and total pack years: Yes. The patient and I engaged in shared decision making, including the use of one or more decision aids, to include benefits, harms, follow-up diagnostic testing, over-diagnosis, false positive rate, and total radiation exposure. The patient understands and feels comfortable with it: Yes. The patient was counseled on the importance of adherence to annual LDCT lung cancer screening, impact of comorbidities and ability or willingness to undergo diagnosis and treatment. The patient understands and feels comfortable with it:Yes. 2. Nicotine dependence: The patient was counseled on the importance of maintaining cigarette smoking abstinence - The patient is committed to remaining abstinent from tobacco. 3. Shortness of breath Increasing shortness of breath, discussed this may have other causes like her heart. We will get updated PFT - LUNG VOLUMES; Future - LUNG DIFFUSION CAPACITY (DLCO); Future - SPIROMETRY - BASELINE AND POST DILATOR; Future - NITRIC OXIDE, EXHALED; Future Ben [place] APRN.CNP NPI #: November 01, 2024 8:48 AM documented in this encounter [facility] 10-17-2024 Note HNO ID: [id number] Author: SUZIE SUAREZ PA-C Service: ? 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 PCP: Lenny Dumas MD REFERRING PROVIDER: SELF SUBJECTIVE HISTORY OF PRESENT ILLNESS: Itzel Soriano is a 58 year old female presenting with friend. HPI: Former patient of Dr. Sampson, last seen in 2020, history of Marfan syndrome, cervical stenosis Presenting for evaluation of chronic neck/trap pain and right arm paresthesias. Itzel reports chronic neck pain and right arm paresthesia, which have been present since her last visit in [address] Sampson. She describes the symptoms as waxing and waning, with an underlying constant presence pf symptoms. The neck pain is localized to the right side, extending from the jawline down to the shoulder blade and trapezius area. She notes a sensation of tightness, describing her R trap feeling like a concrete block and reporting audible cracking sounds when moving her neck. The paresthesia in the right arm is described as a tingly pins and needles sensation along the inner arm, sometimes shooting into all fingers. She does not endorse numbness but reports episodes of hand cramping and freezing up during activities such as brushing her teeth or holding a skillet. These symptoms are exacerbated by certain neck movements. She does not report symptoms on the left side. She does feel her symptoms have recently improved, now that she has been more consistent with her exercises. Itzel has not experienced falls but notes some subtle changes to her balance, which she attributes to inactivity. She reports that the numbness in her fingers can make it difficult to perform fine motor tasks such as buttoning and zipping, particularly when the pain is more intense, but has not noticed significant concerns with her hand dexterity. She has been managing her symptoms with home exercises, including those from physical therapy and the Sarah neck book, which she finds helpful. She has not undergone epidural steroid injections for the cervical spine and wishes to avoid surgery if possible. She has tried gabapentin in the past but discontinued due to side effects, including nausea. She occasionally takes a low-dose Xanax prescribed by her primary care physician for panic attacks, which she finds helpful during severe pain episodes and muscle spasms. She was offered ACDF C3-6 by outside surgeon (Dr. Ross) who she has been following with at [facility]. She did want a second opinion from Dr. Sampson. PRECIPITATING EVENT: None DURATION OF SYMPTOMS: years PAIN EVALUATION 10/12/2024 1324 10/17/2024 0828 Pain Level: 3 2 Pain Location: -- Neck Description: -- Stiffness;Sore Duration Units: -- Years Frequency: -- Continuous DERMATOMAL DISTRIBUTION: Right: C5 and C6 AMBULATORY STATUS: Independent Community Distances ANTIPLATELET OR ANTICOAGULATION STATUS: No PREVIOUS CONSERVATIVE TREATMENTS: PT Cervical home exercises Tylenol Gabapentin (did not tolerate due to side effects) PREVIOUS SPINAL SURGERY: None ACTIVE PROBLEM LIST Marfan's Syndrome (Hcc) Aortic Root Dilation Family History of Marfan Syndrome Chronic Mixed Headache Syndrome Obesity, Class I, Bmi 30-34.9 Anxiety Cervical Radiculopathy Depression With Anxiety Adnexal Mass Liver Cyst Moderate Major Depression (Hcc) Intramural and Subserous Leiomyoma of Uterus Adenomyosis of The Uterus Primary Hypertension Hypercholesterolemia PAST MEDICAL HISTORY Diagnosis Date Aortic root dilation Cervical radiculopathy 04/03/2020 Cervical spondylosis without myelopathy 04/03/2020 Chronic mixed headache syndrome 10/31/2020 Coitus painful for female Endometriosis Family history of Marfan syndrome H/O alopecia areata Infertility, female LIPOMA OTHER SKIN AND SUBCUTANEOUS(Left back) 01/20/2005 Major depressive disorder, single episode, mild 2006 Marfan's syndrome (HCC) Lens dislocation and aortic root dilation Ovarian cyst Uterine fibroid PAST SURGICAL HISTORY Procedure Laterality Date CATARACT SURGERY, COMPLEX Right 05/15/1992 CLEAR LENSECTOMY Left 03/24/2001 Left Lensectomy and anterior Chamber IOL Placement- Performed by Dr. Roberto Lucero CLEAR LENSECTOMY Right 09/19/2013 Lensectomy with Anterior Chamber IOL Placement- Performed by Dr. Jomar Lucero COLONOSCOPY SCREENING 01/16/2019 [facility]. Negative. Repeat 10 years. EXCISION TUMOR SOFT TISSUE BACK/FLANK SUBQ <3CM 01/27/2007 left scapular FNA WITH IMAGING Left 01/10/2015 U/S FNA left breast 3 Oclock LAPS ABD PRTMANDOMENTUM DX W/WO SPEC BR/WA SPX 1981 Laparoscopy LASER IRIDOTOMY,IRIDECTOMY, ONE EYE Right 05/16/1992 LASER IRIDOTOMY,IRIDECTOMY, ONE EYE Left 03/24/2001 RMVL SEC MEMBRANOUS CTRC CORNEO-SCLL SCTJ Bilateral ,2013 Insert lens prosthesis RPR 1ST (more content not included)... [facility] 10-17-2024 History of Present illness Narrative Images from the original note were not included. SPINE SURGERY NEW PATIENT This is an in-person visit. PCP: Lenny Dumas MD REFERRING PROVIDER: SELF SUBJECTIVE HISTORY OF PRESENT ILLNESS: Itzel Soriano is a 58 year old female presenting with friend. HPI: Former patient of Dr. Sampson, last seen in 2020, history of Marfan syndrome, cervical stenosis Presenting for evaluation of chronic neck/trap pain and right arm paresthesias. Itzel reports chronic neck pain and right arm paresthesia, which have been present since her last visit in [address] Sampson. She describes the symptoms as waxing and waning, with an underlying constant presence pf symptoms. The neck pain is localized to the right side, extending from the jawline down to the shoulder blade and trapezius area. She notes a sensation of tightness, describing her R trap feeling like a concrete block and reporting audible cracking sounds when moving her neck. The paresthesia in the right arm is described as a tingly pins and needles sensation along the inner arm, sometimes shooting into all fingers. She does not endorse numbness but reports episodes of hand cramping and freezing up during activities such as brushing her teeth or holding a skillet. These symptoms are exacerbated by certain neck movements. She does not report symptoms on the left side. She does feel her symptoms have recently improved, now that she has been more consistent with her exercises. Itzel has not experienced falls but notes some subtle changes to her balance, which she attributes to inactivity. She reports that the numbness in her fingers can make it difficult to perform fine motor tasks such as buttoning and zipping, particularly when the pain is more intense, but has not noticed significant concerns with her hand dexterity. She has been managing her symptoms with home exercises, including those from physical therapy and the Sarah neck book, which she finds helpful. She has not undergone epidural steroid injections for the cervical spine and wishes to avoid surgery if possible. She has tried gabapentin in the past but discontinued due to side effects, including nausea. She occasionally takes a low-dose Xanax prescribed by her primary care physician for panic attacks, which she finds helpful during severe pain episodes and muscle spasms. She was offered ACDF C3-6 by outside surgeon (Dr. Ross) who she has been following with at [facility]. She did want a second opinion from Dr. Sampson. PRECIPITATING EVENT: None DURATION OF SYMPTOMS: years PAIN EVALUATION 10/12/2024 1324 10/17/2024 0828 Pain Level: 3 2 Pain Location: -- Neck Description: -- Stiffness;Sore Duration Units: -- Years Frequency: -- Continuous DERMATOMAL DISTRIBUTION: Right: C5 and C6 AMBULATORY STATUS: Independent Community Distances ANTIPLATELET OR ANTICOAGULATION STATUS: No PREVIOUS CONSERVATIVE TREATMENTS: PT Cervical home exercises Tylenol Gabapentin (did not tolerate due to side effects) PREVIOUS SPINAL SURGERY: None ACTIVE PROBLEM LIST Marfan's Syndrome (Hcc) Aortic Root Dilation Family History of Marfan Syndrome Chronic Mixed Headache Syndrome Obesity, Class I, Bmi 30-34.9 Anxiety Cervical Radiculopathy Depression With Anxiety Adnexal Mass Liver Cyst Moderate Major Depression (Hcc) Intramural and Subserous Leiomyoma of Uterus Adenomyosis of The Uterus Primary Hypertension Hypercholesterolemia PAST MEDICAL HISTORY Diagnosis Date Aortic root dilation Cervical radiculopathy 04/03/2020 Cervical spondylosis without myelopathy 04/03/2020 Chronic mixed headache syndrome 10/31/2020 Coitus painful for female Endometriosis Family history of Marfan syndrome H/O alopecia areata Infertility, female LIPOMA OTHER SKIN & SUBCUTANEOUS(Left back) 01/20/2005 Major depressive disorder, single episode, mild 2007 Marfan's syndrome (HCC) Lens dislocation and aortic root dilation Ovarian cyst Uterine fibroid PAST SURGICAL HISTORY Procedure Laterality Date CATARACT SURGERY, COMPLEX Right 05/15/1992 CLEAR LENSECTOMY Left 03/24/2001 Left Lensectomy and anterior Chamber IOL Placement- Performed by Dr. Roberto Lucero CLEAR LENSECTOMY Right 09/19/2013 Lensectomy with Anterior Chamber IOL Placement- Performed by Dr. Jomar Lucero COLONOSCOPY SCREENING 01/16/2019 [facility]. Negative. Repeat 10 years. EXCISION TUMOR SOFT TISSUE BACK/FLANK SUBQ <3CM 01/27/2007 left scapular FNA WITH IMAGING Left 01/10/2015 U/S FNA left breast 3 Oclock LAPS ABD PRTM&OMENTUM DX W/WO SPEC BR/WA SPX 1981 Laparoscopy LASER IRIDOTOMY,IRIDECTOMY, ONE EYE Right 05/16/1992 LASER IRIDOTOMY,IRIDECTOMY, ONE EYE Left 03/24/2001 [facility] CORNEO-SCLL SCTJ Bilateral Insert lens prosthesis RPR 1ST INGUN HRNA AGE 6 YRS/> REDUCIBLE 1996 Hernia repair, inguinal FAMILY HISTORY Problem Relation Age of Onset Heart Mother Aortic disection (Marfan's syndrome) Lipids Mother other (Marfans) Mother Heart Father CAD and Heart failure Lipids Father Hypertension Father Heart Sister Cataract Sister Detached Retina Sister Cataract Sister Cataract Sister Blindness Sister other (Marfan's ) Sister Cataract Brother other (Aortic dissection) Brother Cataract Brother other (Aortic aneurysms) Brother Breast Cancer Paternal Grandmother BREAST Diabetes Paternal Grandmother SOCIAL HISTORY[1] ALLERGIES Allergen Reactions Baclofen GI Upset Cipro [Ciprofloxaci* Hives, Swelling Gabapentin Intolerance Macrobid [Nitrofura* Hives, Swelling Sulfa (Sulfonamide * Hives, Swelling Tramadol Other: See Comments when taken with Baclofen Trimethoprim Unknown MEDICATIONS: omeprazole (PRILOSEC) 20 mg capsule Take 20 mg by mouth once daily. mupirocin (BACTROBAN) 2 % ointment Apply to affected area three times a day. Treat for 10 days or as directed. Apply intranasal tacrolimus (PROTOPIC) 0.03 % ointment Apply to affected area once daily. aspirin, enteric coated (ADULT LOW DOSE ASPIRIN) 81 mg EC tablet Take 1 tablet by mouth once daily. hydroCHLOROthiazide 25 mg tablet Take 1 tablet by mouth once daily. losartan (COZAAR) 100 mg tablet Take 1 tablet by mouth once daily. atenolol (TENORMIN) 25 mg tablet Take 1 tablet by mouth once daily. REVIEW OF SYSTEMS: Head: (+) right-sided headaches Ears/Nose/Mouth/Throat: (+) right-sided dysphagia Neck: (+) right-sided neck pain, (+) decreased neck range of motion, (+) neck crepitus Cardiovascular: (+) palpitations Genitourinary: (-) urinary incontinence Musculoskeletal: (+) shoulder crepitus Neurological: (+) right arm paresthesia, (+) right hand cramping, (+) intermittent shooting pain to right hip and leg, (+) balance difficulty, (+) episodic hand clumsiness, (-) right arm numbness, (-) left arm radicular symptoms, (-) falls, (-) stumbling Psychiatric: (+) panic attacks Patient Entered Questionnaires 10/12/2024 Spine Questions Pain Location: Neck Pain Duration: 1 to 5 years Pain over last 6 months: Every day or nearly every day in the past 6 months Symptoms from neck/cervical spine: Yes Employment Status: Other Involved in law suit/legal claim: No 10/12/2024 Neck Questionnaires Benzel Modified TRUPTI Score 15 (Mild Myelopathy Symptoms) 02/23/2021 Low Back Pain Questionnaires STarT Risk Score 1 (Low risk for prolonged disability) STarT Distress Score Incomplete STarT Total Score Incomplete PROMIS Score Percentiles 02/23/2021 10/12/2023 10/12/2024 Physical Health Physical Function Percentile 24* 12 21* Sleep Percentile 38 Fatigue Percentile 24* 31 Pain Interference Percentile 14 14 02/23/2021 10/12/2024 PROMIS SOCIAL ROLE SCORE Social Role Satisfaction Percentile 14 10 11/07/2023 05/25/2024 09/25/2024 PROMIS Global Health Scale Physical Health Percentile 7 10 15 Mental Health Percentile 5 5 Patient-reported Percentiles provide an indication of how the patient's score ranks in relation to the general population. Higher percentile rankings indicate better function/quality of life. 50th percentile is the average of the general population and indicates half of respondents had a worse score. Descriptive Summary for PROMIS Physical Function T-score = 42 (Percentile 21) Much difficulty - Do 2 hours of physical labor. Some difficulty - Walk more than a mile (1.6 km). Depression Screenin04/08/2021 11/19/2023 10/12/2024 PHQ-9 Score 10 8 7 Data saved with a previous flowsheet row definition 04/08/2021 11/19/2023 10/12/2024 PHQ-9 Self-harm Question Question 9 Not at all Not at all Not at all PHQ-9 Self-Harm (Item 9) response options: 0 Not at all 1 Several days 2 More than half the days 3 Nearly every day PHQ-9 Levels: 0-4 No to mild depression 5-9 Mild depression 10-14 Moderate depression 15-19 Moderately severe depression 20-27 Severe depression OBJECTIVE: PHYSICAL EXAM LMP 07/11/2024 (Within Days) GENERAL APPEARANCE: Well nourished, well developed, and no apparent distress. NEURO PSYCH: Patient oriented to person, place, and time. Mood pleasant. Benign affect. MUSCULOSKELETAL VISUAL INSPECTION CERVICAL: WNL THORACIC: WNL LUMBAR: WNL MOTOR: 5/5 in all muscle groups. SENSORY: Normal sensory exam GAIT: mild difficulty with tandem gait REFLEXES: +2 to bilateral U/L extremities. LONG TRACT SIGNS: No clonus. No Hoffmans. L'HERMITTES SIGN: Negative. SPURLING'S TEST: Negative. DATA REVIEW: MRI cervical spine (July 2024): At the C2/C3 level, minimal posterior disc bulging present with patent central canal. Mild left and no significant right-sided foraminal narrowing. C3/C4 level, moderate to large osteophytes in the right neural foramen with severe right-sided foraminal stenosis. The left neural foramen is patent. Mild narrowing of the right lateral central canal. C4/C5 level, minimal posterior disc bulging present with minimal narrowing of the central canal. Moderate to severe right and [id number] left-sided foraminal narrowing. C5/C6 level, mild disc bulging with small osteophytes in the right paracentral and right foraminal region. Moderate to severe right-sided foraminal stenosis and moderate left-sided foraminal narrowing. Mild flattening of the right ventral cord with mild central canal stenosis. C6/C7 level, grade 1 retrolisthesis present with mild posterior disc bulging and mild central canal stenosis. Disc bulging extends into the left neural foramen with moderate to severe left-sided foraminal stenosis and moderate right-sided foraminal narrowing. C7/T1 level, grade 1 anterior listhesis present with mild to moderate degenerative facet changes. The central canal is patent. The foramina are patent. ASSESSMENT/PLAN (M48.02) Spinal stenosis in cervical region (primary encounter diagnosis) (M54.12) Radiculopathy, cervical region Chronic cervical spinal stenosis with intermittent RIGHT cervical radiculopathy Extensively reviewed MRI, and discussed surgical vs non-surgical options Given her recent improvement of radicular symptoms, and lack of signs/symptoms of myelopathy, would favor close observation at this time Recommend serial neurologic exam every 6 months Educated on signs/symptoms of progressive myelopathy Ordered flexion-extension cervical spine X-rays to assess for instability or abnormal motion that may influence surgical approach if needed in the future. Advised continuation of neck and shoulder strengthening exercises; provided handouts with recommended exercises. Advised to avoid high-risk activities (e.g., contact sports, roller coasters, chiropractor) that could increase risk of spinal cord injury. Follow-up in [address] Sampson; sooner if symptoms worsen or new neurologic deficits develop. The majority of the visit was spent counseling and/or coordinating care for the patient. The patient was counseled regarding cervical stenosis. Total face to face time was 45 minutes. SIGNATURE: Suzie Suarez PA-C PATIENT NAME: Itzel Soriano DATE: October 17, 2024 TIME: 11:45 AM PAGER: [1] Social History Tobacco Use Smoking status: Former Current packs/day: 0.00 Average packs/day: 1 pack/day for 31.0 years (31.0 ttl pk-yrs) Types: Cigarettes Start date: 02/29/1980 Quit date: 02/28/2011 Years since quittin.6 Smokeless tobacco: Never Vaping Use Vaping status: Never Used Substance Use Topics Alcohol use: No Drug use: No documented in this encounter [facility] 10-17-2024 History of Present illness Narrative Radiology Service Progress Note PATIENT NAME: Itzel Soriano DATE OF SERVICE: October 17, 2024 TIME: 9:51 AM PATIENT IDENTITY VERIFICATION COMPLETED USING TWO (2) IDENTIFIERS: Name and Date of confirmed by patient verbally. FALL SCREENING: Has the patient had 2 falls in the last year or 1 fall with injury or currently using an Ambulatory Assistive Device (Walker, Cane, Wheelchair, Crutches, etc.)? No PATIENT GENDER DATA: Assigned female at . status: : No status: NO. PATIENT RELEVANT IMPLANT DATA REVIEWED: Not Applicable PATIENT PRESENTS WITH AN IMPLANTABLE OR ATTACHED DISCHARGE SPECIALIST: No RADIOLOGY DEPARTMENT: General X-ray: Exam(s) Completed: Spine X-Ray(s): Cervical AP / LAT / FLEX-EXT PERIPHERAL IV DATA: Not applicable SIGNED BY: KERRIE Kline October 17, 2024 9:51 AM documented in this encounter [facility] 10-17-2024 Note HNO ID: [id number] Author: LISA SCHUSTER CT Service: Radiology Author Type: Technologist Type: Progress Notes Filed: 10/17/2024 09:51 Note Text: Radiology Service Progress Note PATIENT NAME: Itzel Soriano DATE OF SERVICE: October 17, 2024 TIME: 9:51 AM PATIENT IDENTITY VERIFICATION COMPLETED USING TWO (2) IDENTIFIERS: Name and Date of confirmed by patient verbally. FALL SCREENING: Has the patient had 2 falls in the last year or 1 fall with injury or currently using an Ambulatory Assistive Device (Walker, Cane, Wheelchair, Crutches, etc.)? No PATIENT GENDER DATA: Assigned female at . status: : No status: NO. PATIENT RELEVANT IMPLANT DATA REVIEWED: Not Applicable PATIENT PRESENTS WITH AN IMPLANTABLE OR ATTACHED DISCHARGE SPECIALIST: No RADIOLOGY DEPARTMENT: General X-ray: Exam(s) Completed: Spine X-Ray(s): Cervical AP / LAT / FLEX-EXT PERIPHERAL IV DATA: Not applicable SIGNED BY: KERRIE Kline October 17, 2024 9:51 AM [facility] 10-01-2024 Note Patient Outreach ([facility]) ITZEL SORIANO ([id number]) 1965 F Date Time Provider Department 10/01/24 MARTINA WHARTON During your visit today, we recorded the following information about you: Allergies As of Date: 10/01/2024 Noted Allergy Reaction BACLOFEN 11/30/2019 8 - GI Upset CIPRO (CIPROFLOXACIN) 01/03/2007 4 - Hives 7 - Swelling GABAPENTIN 11/30/2019 5 - Intolerance MACROBID (NITROFURANTOIN MONOHYD/*01/03/2007 4 - Hives 7 - Swelling SULFA (SULFONAMIDE ANTIBIOTICS) 01/20/2005 4 - Hives 7 - Swelling TRAMADOL 12/13/2019 14 - Other: See Comments Comments: when taken with Baclofen TRIMETHOPRIM 06/27/2024 16 - Unknown Date Reviewed: 09/26/2024 Reviewed by: Gracie Muhammad MA - Fully Assessed Visit Diagnosis:Tobacco abuse [Z72.0] Order(s):CONSULT [facility] [[id number]] Order #: [id number]: 1 FUTURE Prescriptions as of 10/04/2024 - omeprazole (PRILOSEC) 20 mg capsule Take 20 mg by mouth once daily. - mupirocin (BACTROBAN) 2 % ointment Apply to affected area three times a day. Treat for 10 days or as directed. Apply intranasal - tacrolimus (PROTOPIC) 0.03 % ointment Apply to affected area once daily. - aspirin, enteric coated (ADULT LOW DOSE ASPIRIN) 81 mg EC tablet Take 1 tablet by mouth once daily. - hydroCHLOROthiazide 25 mg tablet Take 1 tablet by mouth once daily. - losartan (COZAAR) 100 mg tablet Take 1 tablet by mouth once daily. - atenolol (TENORMIN) 25 mg tablet Take 1 tablet by mouth once daily. Problem List As Of Date 10/01/2024 Noted Resolved LIPOMA OTHER SKIN AND SUBCUTANEOUS(Left back) [D1*01/20/2005 10/31/2020 Marfan's syndrome [Q87.40] Abnormal mammogram [R92.8] 01/07/2015 10/31/2020 Aortic root dilation (HCC) [I77.810] Family history of Marfan syndrome [Z82.79] Cervical spondylosis without myelopathy [M47.81*07/09/2020 09/25/2020 Chronic mixed headache syndrome [G44.89] 10/31/2020 Obesity, Class I, BMI 30-34.9 [E66.811] 10/31/2020 Anxiety [F41.9] 10/31/2020 Cervical radiculopathy [M54.12] 04/03/2020 Depression with anxiety [F41.8] 04/08/2021 Adnexal mass [N94.89] 04/20/2021 Liver cyst [K76.89] 04/20/2021 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] 09/12/2022 Intramural and subserous leiomyoma of uterus [D*03/22/2024 Adenomyosis of the uterus [N80.03] 03/22/2024 Primary hypertension [I10] 07/15/2024 Hypercholesterolemia [E78.00] 07/15/2024 Encounter Status:Closed by Perfect Memory, PRODUSER on 10/04/24 [facility] 09-26-2024 Note HNO ID: [id number] Author: LENNY DUMAS MD Service: ? Author Type: Physician Type: Progress Notes Filed: 09/26/2024 17:37 Note Text: Subjective Itzel Soriano is a 58 year old female. HPI Itzel Soriano is a 58-year-old female presenting for follow-up on recent tests and ongoing dermatological issues. Itzel recently underwent a calcium score test at [facility], which showed no coronary artery calcification. She also had a body composition test, which revealed a BMI of 31.6 and a total body fat percentage of 38.9%. Itzel is aware that these results indicate a need for improvements in diet and exercise. She also visited a filler sifter machine at [facility] for a full-body scan and treatment of a persistent skin condition. Itzel reports that the scan was very brief, lasting less than a minute, and that the prescribed treatments, including tacrolimus, triamcinolone, and clobetasol, exacerbated her symptoms. She has been unable to identify the specific cause of her skin reactions, despite eliminating potential irritants such as soaps, shampoos, and body washes. She suspects that her condition may be related to her diet, particularly her consumption of smoothies containing spinach and strawberries. She has since discontinued these smoothies and reports some improvement in her symptoms. She also notes that her skin reacts negatively to sunscreen, and she prefers to wear long sleeves and a hat for sun protection. Itzel has been using Arnica gel to soothe her skin and has been taking Xanax 0.25 mg as needed for severe itching, which she reports has been effective in managing her symptoms. She has one pill remaining from her original prescription of five pills, which was given in June. PAST MEDICAL HISTORY Diagnosis Date Aortic root dilation Cervical radiculopathy 04/03/2020 Cervical spondylosis without myelopathy 04/03/2020 Chronic mixed headache syndrome 10/31/2020 Coitus painful for female Endometriosis Family history of Marfan syndrome H/O alopecia areata Infertility, female LIPOMA OTHER SKIN AND SUBCUTANEOUS(Left back) 01/20/2005 Major depressive disorder, single episode, mild 2007 Marfan's syndrome (HCC) Lens dislocation and aortic root dilation Ovarian cyst Uterine fibroid Current Outpatient Medications Medication Sig omeprazole (PRILOSEC) 20 mg capsule Take 20 mg by mouth once daily. mupirocin (BACTROBAN) 2 % ointment Apply to affected area three times a day. Treat for 10 days or as directed. Apply intranasal aspirin, enteric coated (ADULT LOW DOSE ASPIRIN) 81 mg EC tablet Take 1 tablet by mouth once daily. hydroCHLOROthiazide 25 mg tablet Take 1 tablet by mouth once daily. losartan (COZAAR) 100 mg tablet Take 1 tablet by mouth once daily. atenolol (TENORMIN) 25 mg tablet Take 1 tablet by mouth once daily. ALPRAZolam (XANAX) 0.25 mg tablet Take 1 tablet by mouth as needed for anxiety for up to 7 days. tacrolimus (PROTOPIC) 0.03 % ointment Apply to affected area once daily. (Patient not taking: Reported on 08/09/2024) No current facility-administered medications for this visit. Review of Systems Objective BP 116/77 (BP Site: Left Arm, BP Position: Sitting, BP Cuff Size: Regular Adult) Pulse 63 Wt 93.8 kg (206 lb 12.7 oz) LMP 07/11/2024 (Within Days) SpO2 97% BMI 31.44 kg/m? Physical Exam Constitutional: Appearance: Normal appearance. She is obese. Eyes: General: No scleral icterus. Pulmonary: Effort: Pulmonary effort is normal. Skin: Findings: Rash (Resolving around neck; skin not as irritated and dark) present. Neurological: Mental Status: She is alert. Psychiatric: Attention and Perception: Attention and perception normal. Mood and Affect: Affect normal. Mood is anxious. Speech: Speech normal. Behavior: Behavior normal. Thought Content: Thought content normal. [facility] 09-26-2024 History of Present illness Narrative Subjective Itzel Sorinao is a 58 year old female. HPI Itzel Soriano is a 58-year-old female presenting for follow-up on recent tests and ongoing dermatological issues. Itzel recently underwent a calcium score test at [facility], which showed no coronary artery calcification. She also had a body composition test, which revealed a BMI of 31.6 and a total body fat percentage of 38.9%. Itzle is aware that these results indicate a need for improvements in diet and exercise. She also visited a filler sifter machine at [facility] for a full-body scan and treatment of a persistent skin condition. Itzel reports that the scan was very brief, lasting less than a minute, and that the prescribed treatments, including tacrolimus, triamcinolone, and clobetasol, exacerbated her symptoms. She has been unable to identify the specific cause of her skin reactions, despite eliminating potential irritants such as soaps, shampoos, and body washes. She suspects that her condition may be related to her diet, particularly her consumption of smoothies containing spinach and strawberries. She has since discontinued these smoothies and reports some improvement in her symptoms. She also notes that her skin reacts negatively to sunscreen, and she prefers to wear long sleeves and a hat for sun protection. Itzel has been using Arnica gel to soothe her skin and has been taking Xanax 0.25 mg as needed for severe itching, which she reports has been effective in managing her symptoms. She has one pill remaining from her original prescription of five pills, which was given in June. PAST MEDICAL HISTORY Diagnosis Date Aortic root dilation Cervical radiculopathy 04/03/2020 Cervical spondylosis without myelopathy 04/03/2020 Chronic mixed headache syndrome 10/31/2020 Coitus painful for female Endometriosis Family history of Marfan syndrome H/O alopecia areata Infertility, female LIPOMA OTHER SKIN & SUBCUTANEOUS(Left back) 01/20/2005 Major depressive disorder, single episode, mild 2007 Marfan's syndrome (HCC) Lens dislocation and aortic root dilation Ovarian cyst Uterine fibroid Current Outpatient Medications Medication Sig omeprazole (PRILOSEC) 20 mg capsule Take 20 mg by mouth once daily. mupirocin (BACTROBAN) 2 % ointment Apply to affected area three times a day. Treat for 10 days or as directed. Apply intranasal aspirin, enteric coated (ADULT LOW DOSE ASPIRIN) 81 mg EC tablet Take 1 tablet by mouth once daily. hydroCHLOROthiazide 25 mg tablet Take 1 tablet by mouth once daily. losartan (COZAAR) 100 mg tablet Take 1 tablet by mouth once daily. atenolol (TENORMIN) 25 mg tablet Take 1 tablet by mouth once daily. ALPRAZolam (XANAX) 0.25 mg tablet Take 1 tablet by mouth as needed for anxiety for up to 7 days. tacrolimus (PROTOPIC) 0.03 % ointment Apply to affected area once daily. (Patient not taking: Reported on 08/09/2024) No current facility-administered medications for this visit. Review of Systems Objective BP 116/77 (BP Site: Left Arm, BP Position: Sitting, BP Cuff Size: Regular Adult) Pulse 63 Wt 93.8 kg (206 lb 12.7 oz) LMP 07/11/2024 (Within Days) SpO2 97% BMI 31.44 kg/m Physical Exam Constitutional: Appearance: Normal appearance. She is obese. Eyes: General: No scleral icterus. Pulmonary: Effort: Pulmonary effort is normal. Skin: Findings: Rash (Resolving around neck; skin not as irritated and dark) present. Neurological: Mental Status: She is alert. Psychiatric: Attention and Perception: Attention and perception normal. Mood and Affect: Affect normal. Mood is anxious. Speech: Speech normal. Behavior: Behavior normal. Thought Content: Thought content normal. documented in this encounter [facility] 09-24-2024 Radiology Diagnostic study note [facility] Imaging Services [address] [place] [address] Cardiac Only MR#: [id number] Acct: [id number] Name: ITZEL SORIANO Rep #: [id number] : 1965 F 58 From: Puneet White MD PCP: Dr. Lenny Dumas MD Status: RE G CLI Study:Limited Chest CT Cardiac Only Date of E xam: 09/19/24 Exam# [id number] Ordering Dr: Nohemy Davis CLERK RATING CLERK RATING-C PROCEDURE: LIMITED CHEST CT CARDIAC ONLY 09/19/2024 REASON FOR EXAM: HYPERCHOLESTEROLEMIA TECHNIQUE: LIMITED CHEST CT CARDIAC ONLY Coronal and Sagittal reconstruction series were provided. CONTRAST: None One or more dose reduction techniques were used (e.g., Automated exposure control, adjustment of the mA and/or kV according to patient size, use of iterative reconstruction technique). RADIATION DOSE SUMMARY: CTDlvol: 12.19 mGy DLP: 195.04 mGycm COMPARISON: None FINDINGS: Mild calcification of the aortic arch. No coronary artery calcification is seen. The heart is not enlarged. The lungs are clear. CT/Limited Chest CT Cardiac Only IMPRESSION: No coronary artery calcification is seen. Reading Location: [id number] CC: CLERK RATING-Homa Davis; Dr. Lenny Dumas MD ~ Tray Checker: Signed [facility] 09-19-2024 Radiology Diagnostic study note [facility] Imaging Services [address] [place] [address] 09/19/24 1726 MR#: [id number] Acct: [id number] Name: ITZEL SORIANO Rep #:[id number] : 1965 58 From: Karri Bingham MD PCP: Dr. Lenny Dumas MD Status: G CLI Y Location: CT Calcium Scoring Date of Study:: 09/19/24 Indications Indications: HLD Coronary Calcium Scoring: High-resolution Computed Tomographic imaging of the chest was performed on [09/19/2024], with particular attention paid to the coronary arteries. Images from the examination were analyzed for the presence and extent of coronary artery calcification , using coronary calcium quantification software. The patient tolerated the procedure well and there were no complications. The results of the coronary calcification analysis are provided below. Findings Coronary Artery Left Main (LM): 0 Left Anterior Descending (LAD): 0 Left Circumflex (LCX): 0 Right Coronary Artery (RCA): 0 Total Agatston Score: 0 Percentile Rankinth percentile Calcium Scoring Interpretation: Different methods to categorize the overall amount of coronary plaque. Overall amount CAC SIS Visual of coronary plaque P1 Mild -100 <2 1-2 vessels with mild amount of plaque P2 Moderate 101-300 3-4 1-2 vessels with moderate amount, 3 vessels with mild amount of plaque P3 Severe 301-999 5-7 3 vessels with moderate amount, 1 vessel with severe amount of plaque P4 Extensive >1000 >8 2-3 vessels with severe amount of plaque Conclusion: No atherosclerotic plaquing noted 09/19/241726 Date _ Karri Gaytan Signature (if applicable): Date _ CC: SHAYLA Davis; Dr. Karri Bingham MD; Dr. Lenny Dumas MD ~ Signed [facility] Work Phone: 09-07-2024 Telephone encounter Note EXT [facility] referral has been created. Brittni notified. Milton Pendleton MA [facility] 09-07-2024 Miscellaneous Notes EXT [facility] referral has been created. Brittni notified. Milton Pendleton MA They need a referral for a CT? I'm not sure what referral they would need for that? Can we check or get more details on what specifically they need? Thank you Provider put the Calcium CT Scoring as Self-Pay, and it was sent to [facility]. They are requesting a referral. There is no referral in. Would you be able to place referral and notify Fadia. Lizandro Jj RN Romy with was calling asking for Fadia to do a [facility] Pre-Certification for Pt's CT Calcium Scoring. I told her the provider put in in as self pay. She said sometimes the insurance won't pay, but she would like for Fadia to run it through for approval. Information e-mailed to Fadia Veliz for [facility] referral. Lizandro Jj RN documented in this encounter [facility] 09-07-2024 Telephone encounter Note They need a referral for a CT? I'm not sure what referral they would need for that? Can we check or get more details on what specifically they need? Thank you [facility] 09-06-2024 Note HNO ID: [id number] Author: SUZIE SUAREZ PA-C Service: ? Author Type: Physician Chocolate Finisher Operator Type: Progress Notes Filed: 09/06/2024 12:34 Note Text: Records reviewed via triage Findings: Former patient of Dr. Sampson 2020 No surgery recommended, cervical radiculopathy at the time had improved Second opinion for surgery, recently offered surgery, interested in 2nd opinion with Dr. Sampson MRI cervical spine (report only) - C5-6 cord flattening; R>L FS; R C3-4 FS; L C6-7 FS Disposition: Adrián next available or SURAJ (Sharon) for sooner appointment Suzie Suarez PA-C Spine Surgery [facility] 09-06-2024 History of Present illness Narrative Records reviewed via triage Findings: Former patient of Dr. Sampson 2020 No surgery recommended, cervical radiculopathy at the time had improved Second opinion for surgery, recently offered surgery, interested in 2nd opinion with Dr. Sampson MRI cervical spine (report only) - C5-6 cord flattening; R>L FS; R C3-4 FS; L C6-7 FS Disposition: Adrián next available or SURAJ (Sharon) for sooner appointment Suzie Suarez PA-C Spine Surgery Patient name: Itzel Soriano 2019 former Pt/Dr. Sampson Are you being referred by a Center for [facility] Provider or Pain Management Provider at [facility]? No If answer is YES please schedule directly with surgeon, triage does not need to be completed. Is this a self-referral Yes If not, who is the Referring Provider Is this a 2nd opinion from another spine surgeon? Yes Were you offered surgery? Yes MRI/CT/myelogram within 12 months? Yes If NO, please refer to medical spine or PCP to complete above imaging, triage does not need to be completed If YES, please ask for the name/address of the facility where the MRI/CT/myelogram was completed: [facility] [address], [place] [address] MRI/CT/myelogram viewable in Epic: No If not, please provide [phone] to fax in imaging reports for review. Also, please inform patient to hand carry imaging disc to appointment. XR (spine) within 12 months: No If YES, please ask for the name/address of the facility where the XR was completed: Dr. Chirinos's patients: Have you had previous EMG/Nerve Conduction Study, Ultrasound, or MRI for these same symptoms? If YES, please ask for the name/address of the facility where they were completed: Requested provider (First and Last name): Dr. Sampson Are you interested in a virtual visit if offered? no 1. Where are you having symptoms related to this visit? Back pain No Leg pain No Arm pain No Neck pain Yes Has difficulty with Cervical rotation/stiffness Tingling: right half of upper body (chin to thoracic (anterior & posterior) 2. Are you having any of the following symptoms: Difficulty walking No Numbness No Weakness Yes R hand Trouble using your hands? Yes R hand dominant 3. What is your height? 5' 8 What is your weight? 210 lbs 4. Are you a current smoker? No 5. Have you had any injections or physical therapy in the last 12 months? Yes If YES then please ask for the name/address of the facility where the injections and/or physical therapy was completed PT: at [facility] home Have you tried any other kinds of non-surgical treatments in the last 12 months? (For example: NSAIDS, muscle relaxants, analgesics, oral steroids, Chiropractor, Acupuncture): Tylenol 6. Are you currently taking daily prescribed narcotic medications for your current symptoms (For example Oxycodone, Hydrocodone, Tramadol, Morphine, Other)? No 7. Have you had previous spinal surgery for this same symptoms? No If YES please ask for the name of facility/address of where the surgery was completed: Additional Comments [phone] documented in this encounter [facility] 09-05-2024 Telephone encounter Note Provider put the Calcium CT Scoring as Self-Pay, and it was sent to [facility]. They are requesting a referral. There is no referral in. Would you be able to place referral and notify Fadia. Lizandro Jj RN [facility] 09-05-2024 Telephone encounter Note Romy with was calling asking for Fadia to do a [facility] Pre-Certification for Pt's CT Calcium Scoring. I told her the provider put in in as self pay. She said sometimes the insurance won't pay, but she would like for Fadia to run it through for approval. Information e-mailed to Fadia Veliz for [facility] referral. Lizandro Jj RN [facility] 08-24-2024 Note HNO ID: [id number] Author: ?, ?, ? Service: ? Author Type: ? Type: Progress Notes Filed: 09/06/2024 12:34 Note Text: Patient name: Itzel Soriano 2019 former Pt/Dr. Sampson Are you being referred by a Center for [facility] Provider or Pain Management Provider at [facility]? No If answer is YES please schedule directly with surgeon, triage does not need to be completed. Is this a self-referral Yes If not, who is the Referring Provider Is this a 2nd opinion from another spine surgeon? Yes Were you offered surgery? Yes MRI/CT/myelogram within 12 months? Yes If NO, please refer to medical spine or PCP to complete above imaging, triage does not need to be completed If YES,? please ask for the name/address of the facility where the MRI/CT/myelogram was completed: [facility] [address], [place] [address] MRI/CT/myelogram viewable in Epic: No If not, please provide [phone] to fax in imaging reports for review. Also, please inform patient to hand carry imaging disc to appointment. XR (spine) within 12 months: No If YES,? please ask for the name/address of the facility where the XR was completed: Dr. Chirinos's patients: Have you had previous EMG/Nerve Conduction Study, Ultrasound, or MRI for these same symptoms? If YES,? please ask for the name/address of the facility where they were completed: Requested provider (First and Last name): Dr. Sampson Are you interested in a virtual visit if offered? no 1. Where are you having symptoms related to this visit? Back pain No Leg pain No Arm pain No Neck pain Yes Has difficulty with Cervical rotation/stiffness Tingling: right half of upper body (chin to thoracic (anterior AND posterior) 2. Are you having any of the following symptoms: Difficulty walking No Numbness No Weakness Yes R hand Trouble using your hands? Yes R hand dominant 3. What is your height? 5' 8 What is your weight? 210 lbs 4. Are you a current smoker? No 5. Have you had any injections or physical therapy in the last 12 months? Yes If YES then please ask for the name/address of the facility where the injections and/or physical therapy was completed PT: at [facility] home Have you tried any other kinds of non-surgical treatments in the last 12 months? (For example: NSAIDS, muscle relaxants, analgesics, oral steroids, Chiropractor, Acupuncture): Tylenol 6. Are you currently taking daily prescribed narcotic medications for your current symptoms (For example Oxycodone, Hydrocodone, Tramadol, Morphine, Other)? No 7. Have you had previous spinal surgery for this same symptoms? No If YES? please ask for the name of facility/address of where the surgery was completed: Additional Comments [phone] [facility] 08-24-2024 Telephone encounter Note Patient returned call and went over notes below and she is looking to spine surgeon for second opinion and not found as yet. [facility] 08-24-2024 Miscellaneous Notes Patient returned call and went over notes below and she is looking to spine surgeon for second opinion and not found as yet. Left message for patient to return call to PCP Team. When patient calls, please schedule Spine Surgery Consult. Additionally, please advise that Calcium scoring CT has been ordered and faxed to [facility] AND that the DXA Body Composition patient is requesting is a part of the Bone Density test that we perform and is already scheduled for the patient (Per 08/13 [facility] Advice Request). Consult placed, CT ordered. Spoke with patient. She already scheduled her labs via [employer]. Scheduled Bone Density. Will fax referral to Dr. Tootie Lundberg as patient wants to be seen by her for Rheumatology and not [facility]. Patient is still asking for Calcium Score CT to be ordered and completed at [facility] as they have a ling offering it for free. Patient is additionally asking for a DXA Body Composition order to be filed and faxed to [facility]. Patient also mentioned that she saw a Player Piano Technician at [facility] who is recommending a neck fusion. Patient is asking for an order for a second opinion with a [facility] Provider as she is wanting to avoid surgery if possible. Please file appropriate orders/advise/assist. Thank you. I believe I got everything ordered that she needed. Per patient's My Chart encounter dated 08/21/24 Urban Sequeira, Could you please put orders in for the following ... 1. Hemoglobin A1-C the last was and my glucose has been high from last few tests along with cholesterol 2.Bone Density... it's time for this, the last was 3.Calcium Score Test 4. DXA Body Composition scan 5. Dr. Tootie Lundberg, Charging Car Operator I would like to get all these done soon & might get done at [facility], but need an order for each, to be done anywhere. Thanks, Itzel Soriano [phone] Pt is calling to see if provider has order requested test yet. Please review. Mary Garrett LPN documented in this encounter [facility] 08-22-2024 Telephone encounter Note Left message for patient to return call to PCP Team. When patient calls, please schedule Spine Surgery Consult. Additionally, please advise that Calcium scoring CT has been ordered and faxed to [facility] AND that the DXA Body Composition patient is requesting is a part of the Bone Density test that we perform and is already scheduled for the patient (Per 08/13 [facility] Advice Request). [facility] 08-22-2024 Telephone encounter Note Consult placed, CT ordered. [facility] 08-22-2024 Telephone encounter Note Spoke with patient. She already scheduled her labs via [employer]. Scheduled Bone Density. Will fax referral to Dr. Tootie Lundberg as patient wants to be seen by her for Rheumatology and not [facility]. Patient is still asking for Calcium Score CT to be ordered and completed at [facility] as they have a ling offering it for free. Patient is additionally asking for a DXA Body Composition order to be filed and faxed to [facility]. Patient also mentioned that she saw a Player Piano Technician at [facility] who is recommending a neck fusion. Patient is asking for an order for a second opinion with a [facility] Provider as she is wanting to avoid surgery if possible. Please file appropriate orders/advise/assist. Thank you. [facility] 08-21-2024 Telephone encounter Note I believe I got everything ordered that she needed. [facility] 08-21-2024 Telephone encounter Note Duplicate request. See My Chart encounter dated 08/14/24 [facility] 08-21-2024 Miscellaneous Notes Duplicate request. See My Chart encounter dated 08/14/24 documented in this encounter [facility] 08-21-2024 Telephone encounter Note Per patient's My Chart encounter dated 08/21/24 Hi Nohemy, Could you please put orders in for the following ... 1. Hemoglobin A1-C the last was and my glucose has been high from last few tests along with cholesterol 2.Bone Density... it's time for this, the last was 3.Calcium Score Test 4. DXA Body Composition scan 5. Dr. Tootie Lundberg, Charging Car Operator I would like to get all these done soon & might get done at [facility], but need an order for each, to be done anywhere. Thanks, Itzel Bo [phone] [facility] 08-21-2024 Telephone encounter Note Pt is calling to see if provider has order requested test yet. Please review. Mary Garrett LPN [facility] 08-20-2024 History of Present illness Narrative NEUROSURGERY CONSULT NOTE Patient Name: Itzel Soriano Patient : 1965 PCP: LENNY DUMAS History of Present Ilness: 58 y.o. presents with cervical pain with right sided radiculopathy. Patient reports that she initially developed symptoms back in 2019 where she had numbness and tingling throughout the right side of her face right chest wall and right arm. She did go to the emergency department at that time for evaluation for stroke which resulted negative. She has completed physical therapy in the past and is now doing a home exercise plan previously prescribed by therapy. She reports that she has debilitating headaches neck pain with right arm pain numbness and tingling. She does state intermittent weakness, she has regained some strength with therapies but is still nervous of holding items and feels weak in her hand. She denies any symptoms in the left upper extremity. Yareli returns today to review the MRI of her cervical spine. She reports continued symptoms of right upper extremity radiculopathy. She reports numbness and tingling throughout basically the right upper quadrant of her body. She reports numbness and tingling in the face chest shoulder right upper extremity. She denies symptoms on the left side. She states that she has been through therapy has tried's exercises and feels that something is definitely wrong and nothing is helping with her symptoms. Chief Complaint Patient presents with Follow-up Cervical MRI Conservative Treatments: Physical Therapy: She has completed a course of physical therapy in the past and is now doing the previously prescribed home exercise plan at home with various stretches and maneuvers for the cervical spine. NSAID's: [id number] as needed Narcotics no, she has been placed on gabapentin previously but did not tolerate muscle relaxants: No Epidural injections: No Chiropractor: No Past Medical History: History reviewed. No pertinent past medical history. Past Surgical History: History reviewed. No pertinent surgical history. Home Medications: Prior to Admission medications Medication Sig Start Date End Date Taking? Authorizing Provider ALPRAZolam (Xanax) 0.25 MG tablet TAKE 1/2 TO 1 (ONE-HALF TO ONE) TABLET BY MOUTH ONCE DAILY NEEDED FOR ANXIETY FOR UP TO 5 DAYS 05/30/24 Yes Historical Provider, ascorbic acid (Vitamin C) 1000 MG tablet Take 2,000 mg by mouth. Yes Historical Provider, aspirin 81 MG EC tablet Take 81 mg by mouth daily. Yes Historical Provider, atenolol (Tenormin) 25 MG tablet Take 25 mg by mouth daily. 03/01/24 Yes Historical Provider, clobetasol (Temovate) 0.05 % ointment Apply 1 Application topically daily. 06/07/24 Yes Historical Provider, hydroCHLOROthiazide (HYDRODiuril) 25 MG tablet Take 25 mg by mouth daily. 05/25/24 Yes Historical Provider, L-Lysine HCl 500 MG tablet Take 500 mg by mouth if needed. Yes Historical Provider, losartan (Cozaar) 100 MG tablet Take 100 mg by mouth daily. 03/01/24 Yes Historical Provider, omeprazole (PriLOSEC) [address] capsule Take 20 mg by mouth. 04/22/23 Yes Historical Provider, Zinc Acetate 50 MG capsule Take 1 capsule by mouth three times a week. Yes Historical Provider, Allergies: Sulfa antibiotics, Baclofen, Ciprofloxacin, Gabapentin, Nitrofurantoin, Tramadol, and Trimethoprim Social History: TOBACCO: reports that she has never smoked. She has never used smokeless tobacco. ETOH: reports no history of alcohol use. RECREATIONAL DRUG USE: Social History Substance and Sexual Activity Drug Use Never Family History: No family history on file. Review of Systems Constitutional: Negative. HENT: Negative. Eyes: Negative. Respiratory: Negative. Cardiovascular: Negative. Gastrointestinal: Negative. Endocrine: Negative. Genitourinary: Negative. Musculoskeletal: Positive for arthralgias, myalgias, neck pain and neck stiffness. Skin: Negative. Neurological: Positive for weakness and numbness. Psychiatric/Behavioral: Negative. Physical Examination: Vitals: 08/20/24 1118 BP: 93/60 Pulse: 80 Physical Exam Constitutional: Appearance: Normal appearance. HENT: Head: Normocephalic. Eyes: Extraocular Movements: Extraocular movements intact. Pupils: Pupils are equal, round, and reactive to light. Cardiovascular: Rate and Rhythm: Normal rate. Pulmonary: Effort: Pulmonary effort is normal. Abdominal: Palpations: Abdomen is soft. Musculoskeletal: Cervical back: Neck supple. Pain with movement present. Decreased range of motion. Skin: General: Skin is warm and dry. Neurological: General: No focal deficit present. Deep Tendon Reflexes: Reflex Scores: Brachioradialis reflexes are 1+ on the right side and 1+ on the left side. Patellar reflexes are 1+ on the right side and 1+ on the left side. Psychiatric: Mood and Affect: Mood normal. Judgment: Judgment normal. Neurological Exam Mental Status Awake, alert and oriented to person, place and time. Cranial Nerves CN III, IV, : Extraocular movements intact bilaterally. Pupils equal round and reactive to light bilaterally. Motor Strength is 5/5 in all four extremities except as noted. 4/5 R triceps and finger extension. Sensory Sensation is intact to light touch, pinprick, vibration and proprioception in all four extremities. Reflexes Right Left Brachioradialis 1+ 1+ Patellar 1+ 1+ Gait Normal casual, toe, heel and tandem gait. Radiology Personal review: MRI of the cervical spine shows degenerative changes at multiple levels, most significant C3-C4, C4-C5, C5-C6. At C3-C4 there is a very large disc herniation off to the right that severely compressing the exiting right C4 nerve root. At C4-C5 there were disc osteophyte complexes that cause bilateral foraminal stenosis. At C5-C6 there is a large disc herniation off to the right that severely compresses the exiting right C6 nerve root ASSESSMENT / PLAN : Cervical degenerative disc disease, cervical stenosis, cervical radiculopathy. Her symptoms have been present for several years and have not gone away despite significant conservative treatment through physical therapy. Today I recommended to her a C3-C4, C4-C5, C5-C6 ACDF. Risks and benefits of the procedure were discussed with her, including swallowing difficulties. She is considering her options will contact the office if she decides she would like to proceed with surgery. Diagnosis Plan 1. Cervical radiculopathy Procedure: C3/C4, C4/C5, C5/C6 ACDF Anesthesia: GET Time: 2.5 Positioning/Frame: [employer]/Implants: [employer] O-Arm: N C-Arm: Y Stealth Navigation: N Sparks: Microscope: Y Brace: Pre-Op Imaging:[facility] Intranerve: Y Inpatient/Outpatient: Over night Medications to DC: Other: [id number], [id number] x 5, [id number] documented in this encounter [facility] 08-14-2024 Telephone encounter Note Pt has been scheduled for July 20, at 11:[address] Jenkins. [facility] 08-14-2024 Miscellaneous Notes Pt has been scheduled for July 20, at 11:[address] Jenkins. PT did not answer. Message was left for the Pt to call the office to schedule , according to Hansa's message. Hello, Was patient called to schedule follow up appointment? Please call patient to schedule appointment to go over results of MRI cervical spine documented in this encounter [facility] 08-14-2024 Telephone encounter Note PT did not answer. Message was left for the Pt to call the office to schedule , according to Hansa's message. [facility] 08-14-2024 Telephone encounter Note Hello, Was patient called to schedule follow up appointment? [facility] 08-13-2024 Telephone encounter Note Please call patient to schedule appointment to go over results of MRI cervical spine [employer] Phone: 08-09-2024 Note HNO ID: [id number] Author: HERSON ZHANG, JORDANA Service: ? 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 Eczematous dermatitis of upper and lower eyelids of both eyes (Primary) Much improvement with Protopic for patient after 4-5 doses- patient has not used in ~1 week Instructed patient- okay to use 1-2x per week as maintenance dose if dermatitis returns 2. 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 Marfan's syndrome with ocular manifestation (HCC) AC IOL in good position + strong family hx 4. Glaucoma suspect of both eyes +history of elevated intraocular pressure both eyes, within normal limits today IOP: 16/17 today No evidence of RNFL thinning 5. Pseudophakia stable Anterior chamber intraocular lens (ACIOL) both eyes, s/p lensectomy right eye 2013, left eye 2001 with capsular bag remnant left eye follow-up and Dr. Lancaster as scheduled for complete eye exam in October Herson Zhang, OD August 09, 2024 2:39 PM [facility] 08-09-2024 History of Present illness Narrative 1. Eczematous dermatitis of upper and lower eyelids of both eyes (Primary) Much improvement with Protopic for patient after 4-5 doses- patient has not used in ~1 week Instructed patient- okay to use 1-2x per week as maintenance dose if dermatitis returns 2. 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 Marfan's syndrome with ocular manifestation (HCC) AC IOL in good position + strong family hx 4. Glaucoma suspect of both eyes +history of elevated intraocular pressure both eyes, within normal limits today IOP: 16/17 today No evidence of RNFL thinning 5. Pseudophakia stable Anterior chamber intraocular lens (ACIOL) both eyes, s/p lensectomy right eye 2013, left eye 2001 with capsular bag remnant left eye follow-up and Dr. Lancaster as scheduled for complete eye exam in October Herson Zhang, OD August 09, 2024 2:39 PM documented in this encounter [facility] 07-20-2024 Note HNO ID: [id number] Author: LENNY DUMAS MD Service: ? Author Type: Physician Type: Progress Notes Filed: 08/18/2024 15:01 Note Text: This note was created using Weekend-a-gogoriter. Subjective Itzel Soriano is a 58 year old female. Itzel is a 58-year-old female with a history of alopecia, eczema, and cervical radiculopathy, presenting for evaluation of multiple concerns, including dermatitis, lipomas, and recent lab results. Itzel reports a recent exacerbation of dermatitis after overusing hydrocortisone, which led to significant irritation on her eyelids, described as feeling like fiberglass. She was evaluated by an engineering technician parking yesterday and was prescribed tacrolimus, which provided significant relief after one application. She also reports similar dermatitis on both sides of her neck and externally in the vaginal area, for which she was prescribed a steroid but has not used it due to fear of further skin damage. She denies using CeraVe itch relief lotion, as it worsened her symptoms, but finds relief with Aquaphor. She also reports multiple lipomas on both sides of her body, back, and axillae, which have been present for several years and vary in size. One lipoma in the axillary area was tender last night, possibly due to manipulation. She denies any skin changes over the lipomas. Itzel has a history of alopecia, with hair regrowth noted as white. She expresses concern about a possible autoimmune condition. She also reports slow wound healing, with a recent scratch taking 3 months to heal. She has a history of nasal sores and requests a refill of mupirocin. She reports a recent episode of severe headaches lasting 3 weeks, for which she was evaluated in the ER and by a neurologist. She is scheduled for an MRI of the brain on the . She has a history of cervical radiculopathy and is under the care of a neurosurgeon. She requests a refill of alprazolam, which she found helpful for anxiety during the headache episodes. Recent lab results showed elevated cholesterol and glucose levels. She reports dietary changes, including increased vegetable intake, elimination of bread, and reduction of added sugars. She engages in regular stretching and Pilates exercises and plans to increase aerobic activity. She reports a weight loss to 197 lbs following a significant life event but has since regained the weight. She denies any issues with eating or drinking and reports stable blood pressure. Patient presents with: Bandar Robbins is a 58-year-old female with a history of alopecia, eczema, and cervical radiculopathy, presenting for evaluation of multiple concerns, including dermatitis, lipomas, and recent lab results. Itzel reports a recent exacerbation of dermatitis after overusing hydrocortisone, which led to significant irritation on her eyelids, described as feeling like fiberglass. She was evaluated by an engineering technician parking yesterday and was prescribed tacrolimus, which provided significant relief after one application. She also reports similar dermatitis on both sides of her neck and externally in the vaginal area, for which she was prescribed a steroid but has not used it due to fear of further skin damage. She denies using CeraVe itch relief lotion, as it worsened her symptoms, but finds relief with Aquaphor. She also reports multiple lipomas on both sides of her body, back, and axillae, which have been present for several years and vary in size. One lipoma in the axillary area was tender last night, possibly due to manipulation. She denies any skin changes over the lipomas. Itzel has a history of alopecia, with hair regrowth noted as white. She expresses concern about a possible autoimmune condition. She also reports slow wound healing, with a recent scratch taking 3 months to heal. She has a history of nasal sores and requests a refill of mupirocin. She reports a recent episode of severe headaches lasting 3 weeks, for which she was evaluated in the ER and by a neurologist. She is scheduled for an MRI of the brain on the . She has a history of cervical radiculopathy and is under the care of a neurosurgeon. She requests a refill of alprazolam, which she found helpful for anxiety during the headache episodes. Recent lab results showed elevated cholesterol and glucose levels. She reports dietary changes, including increased vegetable intake, elimination of bread, and reduction of added sugars. She engages in regular stretching and Pilates exercises and plans to increase aerobic activity. She reports a weight loss to 197 lbs following a significant life event but has since regained the weight. She denies any issues with eating or drinking and reports stable blood pressure. PAST MEDICAL HISTORY Diagnosis Date Aortic root dilation Cervical radiculopathy 04/03/2020 Cervical spondylosis without myelopathy 04/03/2020 Chronic mixed headache syndrome (more content not included)... [facility] 07-20-2024 History of Present illness Narrative This note was created using Weekend-[employer]-gogoriter. Subjective Itzel Soriano is a 58 year old female. Itzel is a 58-year-old female with a history of alopecia, eczema, and cervical radiculopathy, presenting for evaluation of multiple concerns, including dermatitis, lipomas, and recent lab results. Itzel reports a recent exacerbation of dermatitis after overusing hydrocortisone, which led to significant irritation on her eyelids, described as feeling like fiberglass. She was evaluated by an engineering technician parking yesterday and was prescribed tacrolimus, which provided significant relief after one application. She also reports similar dermatitis on both sides of her neck and externally in the vaginal area, for which she was prescribed a steroid but has not used it due to fear of further skin damage. She denies using CeraVe itch relief lotion, as it worsened her symptoms, but finds relief with Aquaphor. She also reports multiple lipomas on both sides of her body, back, and axillae, which have been present for several years and vary in size. One lipoma in the axillary area was tender last night, possibly due to manipulation. She denies any skin changes over the lipomas. Itzel has a history of alopecia, with hair regrowth noted as white. She expresses concern about a possible autoimmune condition. She also reports slow wound healing, with a recent scratch taking 3 months to heal. She has a history of nasal sores and requests a refill of mupirocin. She reports a recent episode of severe headaches lasting 3 weeks, for which she was evaluated in the ER and by a neurologist. She is scheduled for an MRI of the brain on the . She has a history of cervical radiculopathy and is under the care of a neurosurgeon. She requests a refill of alprazolam, which she found helpful for anxiety during the headache episodes. Recent lab results showed elevated cholesterol and glucose levels. She reports dietary changes, including increased vegetable intake, elimination of bread, and reduction of added sugars. She engages in regular stretching and Pilates exercises and plans to increase aerobic activity. She reports a weight loss to 197 lbs following a significant life event but has since regained the weight. She denies any issues with eating or drinking and reports stable blood pressure. Patient presents with: Bandar Robbins is a 58-year-old female with a history of alopecia, eczema, and cervical radiculopathy, presenting for evaluation of multiple concerns, including dermatitis, lipomas, and recent lab results. Itzel reports a recent exacerbation of dermatitis after overusing hydrocortisone, which led to significant irritation on her eyelids, described as feeling like fiberglass. She was evaluated by an engineering technician parking yesterday and was prescribed tacrolimus, which provided significant relief after one application. She also reports similar dermatitis on both sides of her neck and externally in the vaginal area, for which she was prescribed a steroid but has not used it due to fear of further skin damage. She denies using CeraVe itch relief lotion, as it worsened her symptoms, but finds relief with Aquaphor. She also reports multiple lipomas on both sides of her body, back, and axillae, which have been present for several years and vary in size. One lipoma in the axillary area was tender last night, possibly due to manipulation. She denies any skin changes over the lipomas. Itzel has a history of alopecia, with hair regrowth noted as white. She expresses concern about a possible autoimmune condition. She also reports slow wound healing, with a recent scratch taking 3 months to heal. She has a history of nasal sores and requests a refill of mupirocin. She reports a recent episode of severe headaches lasting 3 weeks, for which she was evaluated in the ER and by a neurologist. She is scheduled for an MRI of the brain on the . She has a history of cervical radiculopathy and is under the care of a neurosurgeon. She requests a refill of alprazolam, which she found helpful for anxiety during the headache episodes. Recent lab results showed elevated cholesterol and glucose levels. She reports dietary changes, including increased vegetable intake, elimination of bread, and reduction of added sugars. She engages in regular stretching and Pilates exercises and plans to increase aerobic activity. She reports a weight loss to 197 lbs following a significant life event but has since regained the weight. She denies any issues with eating or drinking and reports stable blood pressure. PAST MEDICAL HISTORY Diagnosis Date Aortic root dilation Cervical radiculopathy 04/03/2020 Cervical spondylosis without myelopathy 04/03/2020 Chronic mixed headache syndrome 10/31/2020 Coitus painful for female Endometriosis Family history of Marfan syndrome H/O alopecia areata Infertility, female LIPOMA OTHER SKIN & SUBCUTANEOUS(Left back) 01/20/2005 Major depressive disorder, single episode, mild 2007 Marfan's syndrome (HCC) Lens dislocation and aortic root dilation Ovarian cyst Uterine fibroid Current Outpatient Medications Medication Sig omeprazole (PRILOSEC) 20 mg capsule Take 20 mg by mouth once daily. tacrolimus (PROTOPIC) 0.03 % ointment Apply to affected area once daily. (Patient not taking: Reported on 08/09/2024) ALPRAZolam (XANAX) 0.25 mg tablet Take 0.25 mg by mouth as needed for anxiety. aspirin, enteric coated (ADULT LOW DOSE ASPIRIN) 81 mg EC tablet Take 1 tablet by mouth once daily. hydroCHLOROthiazide 25 mg tablet Take 1 tablet by mouth once daily. losartan (COZAAR) 100 mg tablet Take 1 tablet by mouth once daily. atenolol (TENORMIN) 25 mg tablet Take 1 tablet by mouth once daily. mupirocin (BACTROBAN) 2 % ointment Apply to affected area three times a day. Treat for 10 days or as directed. Apply intranasal No current facility-administered medications for this visit. Review of Systems Objective BP 100/66 Pulse 75 Ht 172.7 cm (5' 8) Wt 95.7 kg (210 lb 15.7 oz) LMP 07/11/2024 (Within Days) SpO2 98% BMI 32.08 kg/m Last 5 Encounter Wt Readings: Date: Wt: 07/20/2024 95.7 kg (210 lb 15.7 oz) 07/11/2024 93.4 kg (206 lb) 05/29/2024 95.3 kg (210 lb 1.6 oz) 05/11/2024 94.8 kg (209 lb) 03/12/2024 92.1 kg (203 lb) No waist measurement recorded Estimated body mass index is 32.08 kg/m as calculated from the following: Height as of this encounter: 172.7 cm (5' 8). Weight as of this encounter: 95.7 kg (210 lb 15.7 oz). Last 5 Encounter BP Readings: Date: BP: 07/20/2024 100/66 07/11/2024 120/73 06/27/2024 122/82 05/29/2024 124/76 05/11/2024 124/82 Physical Exam Constitutional: Appearance: Normal appearance. She is obese. HENT: Head: Normocephalic. Eyes: Conjunctiva/sclera: Conjunctivae normal. Musculoskeletal: Right lower leg: No edema. Left lower leg: No edema. Skin: Findings: Rash (Bilateral supraclavicular fossa with red palques with mild scale ; base of neck on back small plaque; also rash on lids) present. Comments: Small lipomatous lumps noted on wrists and maybe right posterolateral lower ribcage area Neurological: General: No focal deficit present. Mental Status: She is alert and oriented to person, place, and time. Psychiatric: Attention and Perception: Attention and perception normal. Mood and Affect: Affect normal. Mood is anxious. Speech: Speech normal. Behavior: Behavior normal. Thought Content: Thought content normal. Latest Ref Rng 07/06/2023 06/01/2024 06/26/2024 Protein, Total 6.3 - 8.0 g/dL 7.0 6.8 Albumin 3.9 - 4.9 g/dL 4.1 4.2 Calcium 8.5 - 10.2 mg/dL 9.4 9.1 Bilirubin, Total 0.2 - 1.3 mg/dL 0.3 0.2 Alkaline Phosphatase 34 - 123 U/L 104 117 AST 13 - 35 U/L 24 15 ALT 7 - 38 U/L 22 15 Glucose 74 - 99 mg/dL 107 (H) 112 (H) BUN 7 - 21 mg/dL 11 15 Creatinine 0.58 - 0.96 mg/dL 0.64 0.68 Sodium 136 - 144 mmol/L 139 136 Potassium 3.7 - 5.1 mmol/L 4.0 3.7 Chloride 98 - 107 mmol/L 106 (H) 98 CO2 22 - 30 mmol/L 28 27 Anion Gap 8 - 15 mmol/L 5 (L) 11 eGFR >=60 mL/min/1.73m 104 102 WBC 3.70 - 11.00 k/uL 6.43 7.19 RBC 3.90 - 5.20 m/uL 4.25 4.31 Hemoglobin 11.5 - 15.5 g/dL 12.5 12.5 Hematocrit 36.0 - 46.0 % 36.7 36.9 MCV 80.0 - 100.0 fL 86.4 85.6 MCH 26.0 - 34.0 pg 29.4 29.0 MCHC 30.5 - 36.0 g/dL 34.1 33.9 RDW-CV 11.5 - 15.0 % 12.2 12.3 Platelet Count 150 - 400 k/uL 250 261 MPV 9.0 - 12.7 fL 10.2 10.3 Absolute nRBC <0.01 k/uL <0.01 <0.01 Cholesterol, Total <200 mg/dL 205 (H) 227 (H) Triglyceride <150 mg/dL 146 84 HDL Cholesterol >39 mg/dL 49 59 Non HDL Cholesterol <130 mg/dL 156 (H) 168 (H) Fasting Time hrs 12 12 VLDL Cholesterol <30 mg/dL 29 17 TC:HDL Ratio <5.10 4.18 3.85 LDL Cholesterol, Calculated <100 mg/dL 127 (H) 151 (H) LDL:HDL Ratio <2.54 2.59 (H) 2.56 (H) Hemoglobin A1C 4.3 - 5.6 % 5.6 Estimated Average Glucose mg/dL 114 TSH 0.270 - 4.200 mIU/L 2.600 Magnesium 1.7 - 2.3 mg/dL 2.1 Measles Antibody, IGG Qualitative Positive Positive Mumps IgG, Qual Positive Positive Rubella IgG, Qual Positive Positive Legend: (H) High (L) Low Assessment and Plan # Other eczema (L30.8) - Exam revealed dermatitis on eyelids and neck; recent exacerbation due to overuse of hydrocortisone. - Loom Operator prescribed tacrolimus ointment, which has shown significant improvement after one application. - Educated patient on the differences in skin sensitivity between eyelids and other areas, emphasizing the necessity of using appropriate strength corticosteroids for different conditions. - Advised continuation of tacrolimus ointment for eyelid dermatitis. - Discussed use of prescribed high-potency steroid for lichen sclerosus; reassured patient about safety and necessity due to the thickness of the affected skin. - Recommended cold compresses and avoidance of scratching to prevent further irritation. - Patient using Aquaphor for additional moisture and protection. # Lipoma of skin and subcutaneous tissue (D17.30) - Multiple lipomas noted on examination, including on the neck, back, and axillary regions. - Lipomas are benign, with no significant changes or concerning features observed. - Advised monitoring for any changes in size or tenderness. # Cervical radiculopathy (M54.12) - Patient experiencing chronic cervical pain with right-sided radiculopathy; MRI scheduled for 12th. - Under the care of neurosurgeon Dr. Belinda Mays for further evaluation and management. - Awaiting MRI results to determine the need for further interventions such as physical therapy or injections. # Anxiety (F41.9) - Patient experiencing anxiety, particularly related to health concerns. - Utilizing Headspace for meditation and relaxation techniques. - Refilled alprazolam prescription for acute anxiety management. # Primary hypertension (I10) - Blood pressure readings slightly lower than usual; patient maintaining hydration and dietary modifications. - Continue current management and monitor blood pressure regularly. # Class 1 obesity due to excess calories without serious comorbidity with body mass index (BMI) of 32.0 to 32.9 in adult (E66.811) - Discussed dietary modifications, including portion control and reduction of added sugars. - Emphasized the importance of regular physical activity; recommended starting with 20 minutes of exercise 2-3 times per week, gradually increasing to 150 minutes per week. - Encouraged incorporation of aerobic exercises and strength training to improve metabolism and support weight loss. # Elevated fasting glucose (R73.01) - Recent lab results show elevated fasting glucose at 112 mg/dL. - Previous A1c was within normal range; will monitor glucose levels and repeat A1c in the future. - Discussed dietary modifications and increased physical activity to improve glucose control. Lenny Dumas MD Recording using [employer] software for draft documentation of the visit was discussed with the patient/authorized outbound call center representative; all questions welcomed and answered. Patient/authorized outbound call center representative agreed to proceed documented in this encounter [facility] 07-19-2024 Note HNO ID: [id number] Author: SYL, HERSON, OD Service: ? Author Type: COMMERCIAL SALES MANAGER Type: Progress Notes Filed: 07/19/2024 13:22 Note Text: 1. Eczematous dermatitis of upper and lower eyelids of both eyes (Primary) Symptoms improving since onset, but still evident x 3 weeks Patient also notes some scaly rash on shoulders and has appt with PCP to talk about possible rheumatology work-up Has tried cortisone (made symptoms worse), multiple creams and vaseline without resolution Prescribed: - tacrolimus (PROTOPIC) 0.03 % ointment; Apply to affected area once daily. Dispense: 30 g; Refill: 0 2. 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 Marfan's syndrome with ocular manifestation (HCC) AC IOL in good position + strong family hx 4. Glaucoma suspect of both eyes +history of elevated intraocular pressure both eyes, within normal limits today No evidence of RNFL thinning 5. Pseudophakia stable Anterior chamber intraocular lens (ACIOL) both eyes, s/p lensectomy right eye 2013, left eye 2001 with capsular bag remnant left eye Follow-up with me in 2 weeks for dermatitis follow-up and Dr. Lancaster as scheduled for complete eye exam in October Herson Zhang, OD July 19, 2024 1:16 PM [facility] 07-11-2024 Note HNO ID: [id number] Author: TRUE MAYERS MD Service: ? Author Type: Physician Type: Progress Notes Filed: 07/15/2024 20:57 Note Text: [facility] Department of Cardiovascular Medicine SECTION OF CARDIOVASCULAR IMAGING OUTPATIENT VISIT DATE July 11, 2024 OUTPATIENT VISIT TYPE ESTABLISHED PRIMARY CARE PHYSICIAN: Lenny Dumas MD [id number] [facility] [id number] CHIEF COMPLAINT: Squeezing pain in the chest HISTORY OF PRESENT ILLNESS: Ms. Jaimes (Lupillo Soriano is a 58 year old female who presents today for follow-up visit. She has history of Marfan syndrome and aortic root dilation. She was last seen in the office in September 2023 and she had a CTA chest that showed mild stable dilation of the aortic root (4.2 x 4.4 cm) with normal appearing coronary arteries. She was reassured and recommended continued surveillance and medical therapy with atenolol and losartan. Ms. Soriano continues to follow up with PCP. Since her last visit, she states that she is doing well. She reports that the HCTZ she was prescribed last visit has helped with her BP but it has still been high at home. She states that her BP in the morning is around 130/76-82. She states that a few weeks ago she went to the ER because she felt like she was having a very bad headache. She notes that she was given treatment at the time that provided some relief. Pt states that she has an appointment with a headache specialist in July. Today, she has no cardiac symptoms and she denies anginal chest pain, pressure or heaviness, shortness of breath, orthopnea, edema, PND, lightheadedness or syncope. Ms. Soriano is currently on aspirin, HCTZ, atenolol and losartan. PAST CARDIAC HISTORY: Ms. Soriano has been seen in the past for Marfan's syndrome and aortic root dilation. She was last seen on October 19, 2023 PAST MEDICAL HISTORY Diagnosis Date Aortic root dilation Cervical radiculopathy 04/03/2020 Cervical spondylosis without myelopathy 04/03/2020 Chronic mixed headache syndrome 10/31/2020 Coitus painful for female Endometriosis Family history of Marfan syndrome H/O alopecia areata Infertility, female LIPOMA OTHER SKIN AND SUBCUTANEOUS(Left back) 01/20/2005 Major depressive disorder, single episode, mild 2007 Marfan's syndrome (HCC) Lens dislocation and aortic root dilation Ovarian cyst Uterine fibroid PAST SURGICAL HISTORY Procedure Laterality Date CATARACT SURGERY, COMPLEX Right 05/15/1992 CLEAR LENSECTOMY Left 03/24/2001 Left Lensectomy and anterior Chamber IOL Placement- Performed by Dr. Roberto Lucero CLEAR LENSECTOMY Right 09/19/2013 Lensectomy with Anterior Chamber IOL Placement- Performed by Dr. Jomar Lucero COLONOSCOPY SCREENING 01/16/2019 [facility]. Negative. Repeat 10 years. EXCISION TUMOR SOFT TISSUE BACK/FLANK SUBQ <3CM 01/27/2007 left scapular FNA WITH IMAGING Left 01/10/2015 U/S FNA left breast 3 Oclock LAPS ABD PRTMANDOMENTUM DX W/WO SPEC BR/WA SPX 1981 Laparoscopy LASER IRIDOTOMY,IRIDECTOMY, ONE EYE Right 05/16/1992 LASER IRIDOTOMY,IRIDECTOMY, ONE EYE Left 03/24/2001 [facility] CORNEO-SCLL SCTJ Bilateral Insert lens prosthesis RPR 1ST INGUN HRNA AGE 6 YRS/> REDUCIBLE 1996 Hernia repair, inguinal SOCIAL HISTORY Social History Tobacco Use Smoking status: Former Current packs/day: 0.00 Average packs/day: 1 pack/day for 31.0 years (31.0 ttl pk-yrs) Types: Cigarettes Start date: 02/29/1980 Quit date: 02/28/2011 Years since quittin.3 Smokeless tobacco: Never Vaping Use Vaping status: Never Used Substance Use Topics Alcohol use: No Drug use: No FAMILY HISTORY Problem Relation Age of Onset Heart Mother Aortic disection (Marfan's syndrome) Lipids Mother other (Marfans) Mother Heart Father CAD and Heart failure Lipids Father Hypertension Father Heart Sister Cataract Sister Detached Retina Sister Cataract Sister Cataract Sister Blindness Sister other (Marfan's ) Sister Cataract Brother other (Aortic dissection) Brother Cataract Brother other (Aortic aneurysms) Brother Breast Cancer Paternal Grandmother BREAST Diabetes Paternal Grandmother ALLERGIES: ALLERGIES Allergen Reactions Baclofen GI Upset Cipro [Ciprofloxaci* Hives, Swelling Gabapentin Intolerance Macrobid [Nitrofura* Hives, Swelling Sulfa (Sulfonamide * Hives, Swelling Tramadol Other: See Comments when taken with Baclofen Trimethoprim Unknown MEDICATIONS: ALPRAZolam (XANAX) 0.25 mg tablet Take 0.25 mg by mouth as needed for anxiety. hydroCHLOROthiazide 25 mg tablet Take 1 tablet by mouth once daily. losartan (COZAAR) 100 mg tablet Take 1 tablet by mouth once daily. atenolol (TENORMIN) 25 mg tablet Take 1 tablet by mouth once daily. aspirin, enteric coated (ADULT LOW DOSE ASPIRIN) 81 mg EC tablet Take 1 tablet by mouth once daily. REVIEW OF SYSTEMS: (more content not included)... [facility] 07-11-2024 History of Present illness Narrative Images from the original note were not included. [facility] Department of Cardiovascular Medicine SECTION OF CARDIOVASCULAR IMAGING OUTPATIENT VISIT DATE July 11, 2024 OUTPATIENT VISIT TYPE ESTABLISHED PRIMARY CARE PHYSICIAN: Lenny Dumas MD [id number] [facility] [id number] CHIEF COMPLAINT: Squeezing pain in the chest HISTORY OF PRESENT ILLNESS: Ms. Jaimes (Lupillo Soriano is a 58 year old female who presents today for follow-up visit. She has history of Marfan syndrome and aortic root dilation. She was last seen in the office in September 2023 and she had a CTA chest that showed mild stable dilation of the aortic root (4.2 x 4.4 cm) with normal appearing coronary arteries. She was reassured and recommended continued surveillance and medical therapy with atenolol and losartan. Ms. Soriano continues to follow up with PCP. Since her last visit, she states that she is doing well. She reports that the HCTZ she was prescribed last visit has helped with her BP but it has still been high at home. She states that her BP in the morning is around 130/76-82. She states that a few weeks ago she went to the ER because she felt like she was having a very bad headache. She notes that she was given treatment at the time that provided some relief. Pt states that she has an appointment with a headache specialist in July. Today, she has no cardiac symptoms and she denies anginal chest pain, pressure or heaviness, shortness of breath, orthopnea, edema, PND, lightheadedness or syncope. Ms. Soriano is currently on aspirin, HCTZ, atenolol and losartan. PAST CARDIAC HISTORY: Ms. Soriano has been seen in the past for Marfan's syndrome and aortic root dilation. She was last seen on October 19, 2023 PAST MEDICAL HISTORY Diagnosis Date Aortic root dilation Cervical radiculopathy 04/03/2020 Cervical spondylosis without myelopathy 04/03/2020 Chronic mixed headache syndrome 10/31/2020 Coitus painful for female Endometriosis Family history of Marfan syndrome H/O alopecia areata Infertility, female LIPOMA OTHER SKIN & SUBCUTANEOUS(Left back) 01/20/2005 Major depressive disorder, single episode, mild 2007 Marfan's syndrome (HCC) Lens dislocation and aortic root dilation Ovarian cyst Uterine fibroid PAST SURGICAL HISTORY Procedure Laterality Date CATARACT SURGERY, COMPLEX Right 05/15/1992 CLEAR LENSECTOMY Left 03/24/2001 Left Lensectomy and anterior Chamber IOL Placement- Performed by Dr. Roberto Lucero CLEAR LENSECTOMY Right 09/19/2013 Lensectomy with Anterior Chamber IOL Placement- Performed by Dr. Jomar Lucero COLONOSCOPY SCREENING 01/16/2019 [facility]. Negative. Repeat 10 years. EXCISION TUMOR SOFT TISSUE BACK/FLANK SUBQ <3CM 01/27/2007 left scapular FNA WITH IMAGING Left 01/10/2015 U/S FNA left breast 3 Oclock LAPS ABD PRTM&OMENTUM DX W/WO SPEC BR/WA SPX 1981 Laparoscopy LASER IRIDOTOMY,IRIDECTOMY, ONE EYE Right 05/16/1992 LASER IRIDOTOMY,IRIDECTOMY, ONE EYE Left 03/24/2001 [facility] CORNEO-SCLL SCTJ Bilateral Insert lens prosthesis RPR 1ST INGUN HRNA AGE 5 YRS/> REDUCIBLE 1996 Hernia repair, inguinal SOCIAL HISTORY Social History Tobacco Use Smoking status: Former Current packs/day: 0.00 Average packs/day: 1 pack/day for 31.0 years (31.0 ttl pk-yrs) Types: Cigarettes Start date: 02/29/1980 Quit date: 02/28/2011 Years since quittin.3 Smokeless tobacco: Never Vaping Use Vaping status: Never Used Substance Use Topics Alcohol use: No Drug use: No FAMILY HISTORY Problem Relation Age of Onset Heart Mother Aortic disection (Marfan's syndrome) Lipids Mother other (Marfans) Mother Heart Father CAD and Heart failure Lipids Father Hypertension Father Heart Sister Cataract Sister Detached Retina Sister Cataract Sister Cataract Sister Blindness Sister other (Marfan's ) Sister Cataract Brother other (Aortic dissection) Brother Cataract Brother other (Aortic aneurysms) Brother Breast Cancer Paternal Grandmother BREAST Diabetes Paternal Grandmother ALLERGIES: ALLERGIES Allergen Reactions Baclofen GI Upset Cipro [Ciprofloxaci* Hives, Swelling Gabapentin Intolerance Macrobid [Nitrofura* Hives, Swelling Sulfa (Sulfonamide * Hives, Swelling Tramadol Other: See Comments when taken with Baclofen Trimethoprim Unknown MEDICATIONS: ALPRAZolam (XANAX) 0.25 mg tablet Take 0.25 mg by mouth as needed for anxiety. hydroCHLOROthiazide 25 mg tablet Take 1 tablet by mouth once daily. losartan (COZAAR) 100 mg tablet Take 1 tablet by mouth once daily. atenolol (TENORMIN) 25 mg tablet Take 1 tablet by mouth once daily. aspirin, enteric coated (ADULT LOW DOSE ASPIRIN) 81 mg EC tablet Take 1 tablet by mouth once daily. REVIEW OF SYSTEMS: See HPI. The reminder of the review of systems is negative. PHYSICAL EXAMINATION: BP 120/73 (BP Site: Left Arm, BP Position: Sitting, BP Cuff Size: Regular Adult) Pulse 79 Ht 172.7 cm (5' 8) Wt 93.4 kg (206 lb) LMP 07/11/2024 (Within Days) SpO2 97% BMI 31.32 kg/m General: Well appearing, in no acute distress. Neck: No jugular venous distention, no carotid bruits, carotids have a normal upstroke, no palpable thyromegaly. Lungs: Clear to auscultation bilaterally, no wheezing or rhonchi. Heart: Regular rhythm, PMI not displaced, S1, S2 normal, no S3, no S4, no heaves, no rub and no murmur. Abdomen: Soft, nontender, bowel sounds normal, no palpable organomegaly, no bruits. Extremities: No peripheral edema . Grade 2/4 distal pulses bilaterally. Neuro: Oriented to person, place and time, alert, cooperative, gait coordinated. CARDIOVASCULAR MEDICINE TESTING: Electrocardiogram: Diagnosis: SINUS RHYTHM WITH OCCASIONAL PREMATURE VENTRICULAR COMPLEXES NONSPECIFIC ST AND T WAVE ABNORMALITY ABNORMAL ECG Echocardiogram: Last ECHO Result Conclusion ECHO Collected: 07/11/2024 1:03 PM (Final result) Impression: CONCLUSIONS: - Technically difficult exam due to body habitus. - Exam indication: Marfan's Syndrome - The left ventricle is normal in size. Left ventricular systolic function is normal. EF = 58 5% (2D biplane) Normal left ventricular diastolic function. - The right ventricle is normal in size. Right ventricular systolic function is normal. - The visualized aorta is dilated with a maximal dimension of 4.4 cm. - Mild posterior MVP with (1+) MR. - Estimated right ventricular systolic pressure is likely underestimated due to a weak or incomplete tricuspid regurgitation signal and is, at least, 28 mmHg consistent with normal pulmonary artery pressures. Estimated right atrial pressure is 8 mmHg based on IVC assessment. - Exam was compared with the prior echocardiographic exam performed on 07/05/2022. No significant changes. * * * Final * * * Stress electrocardiogram: September 2023 Conclusion: Normal with exception due to ST depression Comments: .5 mm upsloping depression V5 noted at peak exercise. Pt asymptomatic throughout test. Resolved < 1 minute in recovery. Stress echocardiogram: September 2023 CONCLUSIONS: - Exam indication: Marfan's syndrome, CP - The exercise stress echo was negative for ischemia at 90 % of MPHR (7.3 METS). - The left ventricle is normal in size. Left ventricular systolic function is normal. EF = 60 5% (2D biplane) Normal left ventricular diastolic function. - The right ventricle is normal in size. Right ventricular systolic function is normal. - The visualized aorta is dilated with a maximal dimension of 4.4 cm. - Exam was compared with the prior echocardiographic exam performed on 07/05/2022. Aortic root measurement is 4.4 cm today, likely relates to better visualization of the aorta. CTA chest (gated): September 2023 IMPRESSION: AORTIC VALVE: appears trileaflet. No leaflet calcification. STABLE ECTASIA/MILD DILATION AORTIC ROOT: 4.4 x 4.2 cm CHEST: Chest wall anatomy: mild pectus excavatum. - again seen are enlarged bilateral axillary lymph nodes, stable since 2012. Clinical correlation is recommended I have personally reviewed the Echocardiogram. IMPRESSION: [facility] is a 58 year old female with Marfan syndrome who presents for annual followup evaluation. Since her last visit she's been stable overall and her current symptoms are not cardiac related and I reassured the patient. I have reviewed the results of the EKG and Echocardiogram and reassured about the the stable dimensions of the aortic root (4.4 x 4.2 cm). She had stress echocardiogram and CTA chest (gated) done in September 2023. Stress echocardiogram showed no evidence of coronary ischemia with good functional capacity with stable mild aortic root dilation (4.4 cm) and this is relatively stable compared to CTA of the chest as well as to CT in 2012 and cardiac MRI in 2013. The visualized coronary arteries appear normal with no obvious atherosclerotic changes. I reassured the patient about these results and recommended to continue her current medical management. She was again advised to continue with exercise (70-75% of the maximum predicted heart rate) and also follow weight lifting limitations of less than 50 pounds. Answered all questions in detail. PLAN AND RECOMMENDATIONS: Medical therapy with atenolol and losartan for history of Marfan's syndrome and mild aortic root dilation. Follow up in 1 year Stop hydrochlorothiazide for 2 weeks and see how BP responds. Advised to send [employer] message after 2 weeks regarding BP readings Followup evaluation in one year with ECG and Echocardiogram. I have asked Ms. Soriano to call my office with questions about her health. By signing my name below, I, Po Avina, attest that this documentation has been prepared under the direction and in the presence of Dr. Mayers Electronically signed, Dmitri Quinn July 11, 2024 3:10 PM I agree with the Chief Complaint, ROS, and Past Histories independently gathered by the clinical support merchandiser and the remaining scribed note accurately describes my personal service to the patient. True Mayers MD CONTACT INFORMATION: True Mayers M.D., Ny Sorenson and Rena Duran Department of Cardiovascular Medicine Heart and Vascular [place] [facility] Desk [place] [address] Office - [phone] extension [phone] Office E-mail: Appointments: [phone] -[phone] extension [phone] documented in this encounter [facility] 07-02-2024 History of Present illness Narrative NEUROSURGERY CONSULT NOTE Patient Name: Itzel Soriano Patient : 1965 PCP: No primary care provider on file. History of Present Ilness: 58 y.o. presents with cervical pain with right sided radiculopathy. Patient reports that she initially developed symptoms back in 2019 where she had numbness and tingling throughout the right side of her face right chest wall and right arm. She did go to the emergency department at that time for evaluation for stroke which resulted negative. She has completed physical therapy in the past and is now doing a home exercise plan previously prescribed by therapy. She reports that she has debilitating headaches neck pain with right arm pain numbness and tingling. She does state intermittent weakness, she has regained some strength with therapies but is still nervous of holding items and feels weak in her hand. She denies any symptoms in the left upper extremity. Chief Complaint Patient presents with New Patient Pinched nerve C-6, C-7. Has Discs Conservative Treatments: Physical Therapy: She has completed a course of physical therapy in the past and is now doing the previously prescribed home exercise plan at home with various stretches and maneuvers for the cervical spine. NSAID's: [id number] as needed Narcotics no, she has been placed on gabapentin previously but did not tolerate muscle relaxants: No Epidural injections: No Chiropractor: No Past Medical History: History reviewed. No pertinent past medical history. Past Surgical History: History reviewed. No pertinent surgical history. Home Medications: Prior to Admission medications Medication Sig Start Date End Date Taking? Authorizing Provider ALPRAZolam (Xanax) 0.25 MG tablet TAKE 1/2 TO 1 (ONE-HALF TO ONE) TABLET BY MOUTH ONCE DAILY NEEDED FOR ANXIETY FOR UP TO 5 DAYS 05/30/24 Yes Historical Provider, ascorbic acid (Vitamin C) 1000 MG tablet Take 2,000 mg by mouth. Yes Historical Provider, aspirin 81 MG EC tablet Take 81 mg by mouth daily. Yes Historical Provider, atenolol (Tenormin) 25 MG tablet Take 25 mg by mouth daily. 03/01/24 Yes Historical Provider, clobetasol (Temovate) 0.05 % ointment Apply 1 Application topically daily. 06/07/24 Yes Historical Provider, hydroCHLOROthiazide (HYDRODiuril) 25 MG tablet Take 25 mg by mouth daily. 05/25/24 Yes Historical Provider, L-Lysine HCl 500 MG tablet Take 500 mg by mouth if needed. Yes Historical Provider, losartan (Cozaar) 100 MG tablet Take 100 mg by mouth daily. 03/01/24 Yes Historical Provider, omeprazole (PriLOSEC) [address] capsule Take 20 mg by mouth. 04/22/23 Yes Historical Provider, Zinc Acetate 50 MG capsule Take 1 capsule by mouth three times a week. Yes Historical Provider, Allergies: Baclofen, Ciprofloxacin, Gabapentin, Nitrofurantoin, and Tramadol Social History: TOBACCO: reports that she has never smoked. She has never used smokeless tobacco. ETOH: reports no history of alcohol use. RECREATIONAL DRUG USE: Social History Substance and Sexual Activity Drug Use Never Family History: No family history on file. Review of Systems Constitutional: Negative. HENT: Negative. Eyes: Negative. Respiratory: Negative. Cardiovascular: Negative. Gastrointestinal: Negative. Endocrine: Negative. Genitourinary: Negative. Musculoskeletal: Positive for arthralgias, myalgias, neck pain and neck stiffness. Skin: Negative. Neurological: Positive for weakness and numbness. Psychiatric/Behavioral: Negative. Physical Examination: Vitals: 07/02/24 1113 BP: 118/77 Pulse: 83 Physical Exam Constitutional: Appearance: Normal appearance. HENT: Head: Normocephalic. Eyes: Extraocular Movements: Extraocular movements intact. Pupils: Pupils are equal, round, and reactive to light. Cardiovascular: Rate and Rhythm: Normal rate. Pulmonary: Effort: Pulmonary effort is normal. Abdominal: Palpations: Abdomen is soft. Musculoskeletal: Cervical back: Neck supple. Pain with movement present. Decreased range of motion. Skin: General: Skin is warm and dry. Neurological: General: No focal deficit present. Deep Tendon Reflexes: Reflex Scores: Brachioradialis reflexes are 1+ on the right side and 1+ on the left side. Patellar reflexes are 1+ on the right side and 1+ on the left side. Psychiatric: Mood and Affect: Mood normal. Judgment: Judgment normal. Neurological Exam Mental Status Awake, alert and oriented to person, place and time. Cranial Nerves CN III, IV, : Extraocular movements intact bilaterally. Pupils equal round and reactive to light bilaterally. Motor Strength is 5/5 in all four extremities except as noted. 4/5 R triceps and finger extension. Sensory Sensation is intact to light touch, pinprick, vibration and proprioception in all four extremities. Reflexes Right Left Brachioradialis 1+ 1+ Patellar 1+ 1+ Gait Normal casual, toe, heel and tandem gait. Radiology Personal review: None new for review. ASSESSMENT / PLAN : Symptoms of right upper extremity cervical radiculopathy. Seems to be in the C7 distribution based on the strength in her right triceps and finger extension. Will obtain a MRI cervical spine. She will follow-up with us after the MRI for review and further treatment discussion. Diagnosis Plan 1. Cervical radiculopathy MR cervical spine wo contrast documented in this encounter [facility] 06-27-2024 Note HNO ID: [id number] Author: GABBY HUGHES [email or web address].ZOIE Service: ? Author Type: Nurse Practitioner Type: Progress Notes Filed: 06/27/2024 17:35 Note Text: Patient triaged at [facility]. Here today with 10 days of severe headache and right worsening right facial numbness. I will refer to ER. Patient stable. [facility] 06-27-2024 History of Present illness Narrative Patient triaged at [facility]. Here today with 10 days of severe headache and right worsening right facial numbness. I will refer to ER. Patient stable. documented in this encounter [facility] 06-14-2024 Telephone encounter Note See MyChart reply [facility] 06-14-2024 Miscellaneous Notes See MyChart reply documented in this encounter [facility] 05-29-2024 Instructions Lenny Dumas MD - 05/29/2024 7:19 PM EDT - Continue taking Hydrochlorothiazide and Losartan as prescribed by Dr. Perry. - Monitor your blood pressure and heart rate regularly at home. Record the readings and report any significant changes or concerns to Dr. Mayers. - Follow up with Dr. Mayers after your blood flow screening. - Schedule and complete a sleep study in a couple of months to evaluate for sleep apnea. - Maintain a healthy diet and avoid high-sodium foods to help manage your blood pressure. - Continue your physical therapy exercises at home to manage your neck pain. - Follow up with the neuro-engineering technician parking and neuro-headache specialist as scheduled. - Consult with a [facility] to evaluate your neck and arm pain. Dr. Taylor and Dr. Billingsley are great options. documented in this encounter [facility] 05-29-2024 Note HNO ID: [id number] Author: LENNY DUMAS MD Service: ? Author Type: Physician Type: Progress Notes Filed: 06/14/2024 11:24 Note Text: This note was created using [employer]. Subjective Itzel Soriano is a 58 year old female. Patient presents with: Same Day Appointment: elevated blood pressures, c/o SOB,dizzy, elevated heart rate, patient spoke with cardiology started on new med HCTZ SUBJECTIVE: Itzel Soriano is a 58 year old year old lady here today for follow up appointment for review of medical conditions. Itzel is a 58-year-old female with a history of Marfan syndrome, presenting with elevated blood pressure readings and associated symptoms. Itzel reports a sudden onset of elevated blood pressure readings beginning last Tuesday at 1345, accompanied by chest pressure, dizziness, and nausea. She describes the chest pressure as feeling like she was going to explode and has also experienced sensations of someone grabbing my heart, just squeezing it. She denies any specific triggers for these episodes. Home blood pressure readings have been variable, with systolic readings ranging from 102 to 140 mmHg and diastolic readings from 67 to 90 mmHg. She notes that her pulse has been consistently elevated, ranging from 95 to 98 bpm, even when her blood pressure is lower (e.g., 117/67 mmHg). She has also recorded a pulse as low as 59 bpm during periods of higher blood pressure. She has been taking losartan 100 mg daily and recently started hydrochlorothiazide on Tuesday, which she believes is beginning to help stabilize her blood pressure. She denies any specific dietary triggers but mentions consuming a small bag of chips today without a significant increase in blood pressure. Itzel has a history of anxiety and was previously prescribed buspirone by Dr. Larsen, which she has not taken. She has been practicing visualization and breathing exercises (inhaling for 4 seconds, exhaling for 8 seconds) to manage her anxiety. She expresses a desire for a medication like Xanax for acute anxiety episodes but has not been prescribed it. She also reports a history of severe cervical pain in 2019, which rendered her unable to move her arm for 8 months due to excruciating pain. She has been performing physical therapy exercises at home and is scheduled to see a career information specialist. She experiences numbness and tingling in her arm when taking blood pressure readings, which she attributes to her previous cervical issues. Itzel has been sleeping upright in a chair since last Tuesday, noting that it feels more comfortable than lying flat in bed without a pillow. She reports episodes of loud snoring that wake her up, occurring three nights in a row, and experiences daytime sleepiness but tries to stay awake. She denies taking naps, preferring to go to bed early and wake up early. She is considering a sleep study to evaluate for sleep apnea. She has scheduled a blood flow screening and a first-time appointment with a neuro-engineering technician parking to evaluate new-onset headaches. She is also making dietary changes to improve her health, noting a fluctuating weight and a BMI of 32.91. PAST MEDICAL HISTORY Diagnosis Date - Aortic root dilation 4.1 cm - Cervical radiculopathy 04/03/2020 - Cervical spondylosis without myelopathy 04/03/2020 - Chronic mixed headache syndrome 10/31/2020 - Coitus painful for female - Endometriosis - Family history of Marfan syndrome - H/O alopecia areata - Infertility, female - LIPOMA OTHER SKIN AND SUBCUTANEOUS(Left back) 01/20/2005 - Major depressive disorder, single episode, mild 2007 - Marfan's syndrome (HCC) Lens dislocation and aortic root dilation - Ovarian cyst - Uterine fibroid Current Outpatient Medications Medication Sig - hydroCHLOROthiazide 25 mg tablet Take 1 tablet by mouth once daily. - losartan (COZAAR) 100 mg tablet Take 1 tablet by mouth once daily. - atenolol (TENORMIN) 25 mg tablet Take 1 tablet by mouth once daily. - omeprazole (PRILOSEC) 20 mg capsule Take 1 capsule by mouth daily before breakfast. 1/2 hr before meal. - mupirocin (BACTROBAN) 2 % ointment Apply to affected area three times daily. Treat for 10 days or as directed. Apply intranasal - calcium Carbonate 300 mg, 750mg, (TUMS) 300 mg (750 mg) chewable tablet Take by mouth as needed. (Patient not taking: Reported on 01/02/2024) - vitamin B complex (B COMPLEX 1 ORAL) Take 1 capsule by mouth every Tuesday and Tuesday. - cholecalciferol, vitamin D3, (VITAMIN D3 ORAL) Take 10,000 Units by mouth. Twice a week - calcium carb/D3/magnesium/zinc (CALCIUM CARB-D3-MAG OX-ZINC OX ORAL) Take by mouth. 1 capsule three times a week - Ascorbic Acid (VITAMIN C) 1,000 mg tablet Take 2,000 mg by mouth. Three times a week - Zinc Acetate, Oral, 50 mg (zinc) cap Take 1 capsule by mouth. Three times a week - lysine 500 mg tab Take 500 mg by mouth as needed. - a (more content not included)... [facility] 05-29-2024 History of Present illness Narrative This note was created using [employer]. Subjective Itzel Soriano is a 58 year old female. Patient presents with: Same Day Appointment: elevated blood pressures, c/o SOB,dizzy, elevated heart rate, patient spoke with cardiology started on new med HCTZ SUBJECTIVE: Itzel Soriano is a 58 year old year old lady here today for follow up appointment for review of medical conditions. Itzel is a 58-year-old female with a history of Marfan syndrome, presenting with elevated blood pressure readings and associated symptoms. Itzel reports a sudden onset of elevated blood pressure readings beginning last Tuesday at 1345, accompanied by chest pressure, dizziness, and nausea. She describes the chest pressure as feeling like she was going to explode and has also experienced sensations of someone grabbing my heart, just squeezing it. She denies any specific triggers for these episodes. Home blood pressure readings have been variable, with systolic readings ranging from 102 to 140 mmHg and diastolic readings from 67 to 90 mmHg. She notes that her pulse has been consistently elevated, ranging from 95 to 98 bpm, even when her blood pressure is lower (e.g., 117/67 mmHg). She has also recorded a pulse as low as 59 bpm during periods of higher blood pressure. She has been taking losartan 100 mg daily and recently started hydrochlorothiazide on Tuesday, which she believes is beginning to help stabilize her blood pressure. She denies any specific dietary triggers but mentions consuming a small bag of chips today without a significant increase in blood pressure. Itzel has a history of anxiety and was previously prescribed buspirone by Dr. Larsen, which she has not taken. She has been practicing visualization and breathing exercises (inhaling for 4 seconds, exhaling for 8 seconds) to manage her anxiety. She expresses a desire for a medication like Xanax for acute anxiety episodes but has not been prescribed it. She also reports a history of severe cervical pain in 2019, which rendered her unable to move her arm for 8 months due to excruciating pain. She has been performing physical therapy exercises at home and is scheduled to see a career information specialist. She experiences numbness and tingling in her arm when taking blood pressure readings, which she attributes to her previous cervical issues. Itzel has been sleeping upright in a chair since last Tuesday, noting that it feels more comfortable than lying flat in bed without a pillow. She reports episodes of loud snoring that wake her up, occurring three nights in a row, and experiences daytime sleepiness but tries to stay awake. She denies taking naps, preferring to go to bed early and wake up early. She is considering a sleep study to evaluate for sleep apnea. She has scheduled a blood flow screening and a first-time appointment with a neuro-engineering technician parking to evaluate new-onset headaches. She is also making dietary changes to improve her health, noting a fluctuating weight and a BMI of 32.91. PAST MEDICAL HISTORY Diagnosis Date Aortic root dilation 4.1 cm Cervical radiculopathy 04/03/2020 Cervical spondylosis without myelopathy 04/03/2020 Chronic mixed headache syndrome 10/31/2020 Coitus painful for female Endometriosis Family history of Marfan syndrome H/O alopecia areata Infertility, female LIPOMA OTHER SKIN & SUBCUTANEOUS(Left back) 01/20/2005 Major depressive disorder, single episode, mild 2007 Marfan's syndrome (HCC) Lens dislocation and aortic root dilation Ovarian cyst Uterine fibroid Current Outpatient Medications Medication Sig hydroCHLOROthiazide 25 mg tablet Take 1 tablet by mouth once daily. losartan (COZAAR) 100 mg tablet Take 1 tablet by mouth once daily. atenolol (TENORMIN) 25 mg tablet Take 1 tablet by mouth once daily. omeprazole (PRILOSEC) 20 mg capsule Take 1 capsule by mouth daily before breakfast. 1/2 hr before meal. mupirocin (BACTROBAN) 2 % ointment Apply to affected area three times daily. Treat for 10 days or as directed. Apply intranasal calcium Carbonate 300 mg, 750mg, (TUMS) 300 mg (750 mg) chewable tablet Take by mouth as needed. (Patient not taking: Reported on 01/02/2024) vitamin B complex (B COMPLEX 1 ORAL) Take 1 capsule by mouth every Tuesday and Tuesday. cholecalciferol, vitamin D3, (VITAMIN D3 ORAL) Take 10,000 Units by mouth. Twice a week calcium carb/D3/magnesium/zinc (CALCIUM CARB-D3-MAG OX-ZINC OX ORAL) Take by mouth. 1 capsule three times a week Ascorbic Acid (VITAMIN C) 1,000 mg tablet Take 2,000 mg by mouth. Three times a week Zinc Acetate, Oral, 50 mg (zinc) cap Take 1 capsule by mouth. Three times a week lysine 500 mg tab Take 500 mg by mouth as needed. aspirin, enteric coated (ADULT LOW DOSE ASPIRIN) 81 mg EC tablet Take 1 tablet by mouth once daily. No current facility-administered medications for this visit. Review of Systems Objective BP 124/76 (BP Site: Left Arm, BP Position: Sitting, BP Cuff Size: Large Adult) Pulse 97 Temp 37.2 C (99 F) (Temporal) Resp 12 Ht 170.2 cm (5' 7) Wt 95.3 kg (210 lb 1.6 oz) LMP 05/18/2024 (Exact Date) SpO2 97% BMI 32.91 kg/m Last 5 Encounter Wt Readings: Date: Wt: 05/29/2024 95.3 kg (210 lb 1.6 oz) 05/11/2024 94.8 kg (209 lb) 03/12/2024 92.1 kg (203 lb) 01/02/2024 89.7 kg (197 lb 12 oz) 11/21/2023 91.4 kg (201 lb 8 oz) No waist measurement recorded Estimated body mass index is 32.91 kg/m as calculated from the following: Height as of this encounter: 170.2 cm (5' 7). Weight as of this encounter: 95.3 kg (210 lb 1.6 oz). Last 5 Encounter BP Readings: Date: BP: 05/29/2024 124/76 05/11/2024 124/82 03/12/2024 105/68 01/02/2024 118/78 11/21/2023 114/80 Physical Exam Assessment and Plan documented in this encounter [facility] 05-11-2024 Note HNO ID: [id number] Author: KONSTANTIN RIVER MD Service: ? Author Type: Physician Type: Progress Notes Filed: 05/11/2024 15:37 Note Text: Voting Machine Repairer offered: Patient declinesAnup Robbins is a 58 year old who presents for an annual gynecologic exam without complaints. Postmenopausal: No Regular menstrual cycles q 28 days with 6-7 days of heavier bleeding HRT use: No. Still get period: Yes Bleeding amount bothersome: Yes Bleeding between periods: No Period symptoms: Breast tenderness; Cramps; Mood change; Pelvic pain Menopause symptoms: Hot flashes control frequency: Never HPV vaccine: Unsure; Last pap smear: 2023 History of abnormal pap: No Bothersome pelvic pain: Yes Last mammogram: today OB History Gravida0 Para0 Term0 Preterm0 AB0 Living0 SAB0 IAB0 Ectopic0 Multiple0 Live Births0 Quality Rep History LMP: 04/16/2024, Having periods Age at Menarche: 14 Age at First : Age at Menopause: Quality Rep History Comments: Sexual Activity: Not Currently; Male; Jail female infertility Contraception: None Menstrual Tracking History Flowsheet Row Office Visit from 05/11/2024 in OB/Gynecology Period Cycle (Days) 28 Period Duration (Days) 6 Menstrual Flow Heavy PAST MEDICAL HISTORY Diagnosis Date Aortic root dilation (HCC) 4.1 cm Cervical radiculopathy 04/03/2020 Cervical spondylosis without myelopathy 04/03/2020 Chronic mixed headache syndrome 10/31/2020 Coitus painful for female Endometriosis Family history of Marfan syndrome H/O alopecia areata Infertility, female LIPOMA OTHER SKIN AND SUBCUTANEOUS(Left back) 01/20/2005 Major depressive disorder, single episode, mild (HCC) 2006 Marfan's syndrome Lens dislocation and aortic root dilation Ovarian cyst Uterine fibroid PAST SURGICAL HISTORY Procedure Laterality Date CATARACT SURGERY, COMPLEX Right 05/15/1992 CLEAR LENSECTOMY Left 03/24/2001 Left Lensectomy and anterior Chamber IOL Placement- Performed by Dr. Roberto Lucero CLEAR LENSECTOMY Right 09/19/2013 Lensectomy with Anterior Chamber IOL Placement- Performed by Dr. Jomar Lucero COLONOSCOPY SCREENING 01/16/2019 [facility]. Negative. Repeat 10 years. EXCISION TUMOR SOFT TISSUE BACK/FLANK SUBQ <3CM 01/27/2007 left scapular FNA WITH IMAGING Left 01/10/2015 U/S FNA left breast 3 Oclock LAPS ABD PRTMANDOMENTUM DX W/WO SPEC BR/WA SPX 1981 Laparoscopy LASER IRIDOTOMY,IRIDECTOMY, ONE EYE Right 05/16/1992 LASER IRIDOTOMY,IRIDECTOMY, ONE EYE Left 03/24/2001 RMVL SEC MEMBRANOUS CTRC CORNEO-SCLL SCTJ Bilateral ,2013 Insert lens prosthesis RPR 1ST INGUN HRNA AGE 5 YRS/> REDUCIBLE 1996 Hernia repair, inguinal FAMILY HISTORY Problem Relation Age of Onset Heart Mother Aortic disection (Marfan's syndrome) Lipids Mother other (Marfans) Mother Heart Father CAD and Heart failure Lipids Father Hypertension Father Heart Sister Cataract Sister Detached Retina Sister Cataract Sister Cataract Sister Blindness Sister other (Marfan's ) Sister Cataract Brother other (Aortic dissection) Brother Cataract Brother other (Aortic aneurysms) Brother Breast Cancer Paternal Grandmother BREAST Diabetes Paternal Grandmother SOCIAL HISTORY Social History Tobacco Use Smoking status: Former Current packs/day: 0.00 Average packs/day: 1 pack/day for 31.0 years (31.0 ttl pk-yrs) Types: Cigarettes Start date: 02/29/1980 Quit date: 02/28/2011 Years since quittin.2 Smokeless tobacco: Never Vaping Use Vaping status: Never Used Substance Use Topics Alcohol use: No Drug use: No REVIEW OF SYSTEMS Abdomen: No abdominal pain, nausea, vomiting, diarrhea, or constipation. No bloating, early satiety, indigestion, or increased flatulence. Bladder: No dysuria, gross hematuria, urinary frequency, urinary urgency, or incontinence Breast: No breast lumps, nipple d/c, overlying skin changes, redness or skin retraction Allergies and current medication updated:Yes SENSITIVE EXAM: The sensitive examination was discussed with the Patient or Patient's Authorized Business Applications Analyst. As applicable, any other physician, advance practice provider, medical student, or other health professional student that will be observing or involved in the sensitive examination for educational or training purposes was discussed with the Patient or Authorized Business Applications Analyst. The Patient or Authorized Business Applications Analyst has agreed to proceed with the sensitive examination. (Sensitive examination includes inspection and/or palpation of the breasts, pelvis, prostate and anorectal regions). EXAM: BP 124/82 Ht 5' 7 (1.70m) Wt 209 lb (94.8kg) LMP 04/16/2024 BMI 32.73 kg/(m2). GENERAL: pleasant, female in no apparent distress HEENT: Normocephalic and atraumatic NECK: full range of motion DERMATOLOGY: Normal, without lesions, non-icteric, and non-hirsute BREAST: soft, non-tender, symmetric, no dominant mass, sharita (more content not included)... [facility] 05-11-2024 History of Present illness Narrative Voting Machine Repairer offered: Patient declines. Itzel is a 58 year old who presents for an annual gynecologic exam without complaints. Postmenopausal: No Regular menstrual cycles q 28 days with 6-7 days of heavier bleeding HRT use: No. Still get period: Yes Bleeding amount bothersome: Yes Bleeding between periods: No Period symptoms: Breast tenderness; Cramps; Mood change; Pelvic pain Menopause symptoms: Hot flashes control frequency: Never HPV vaccine: Unsure; Last pap smear: 2023 History of abnormal pap: No Bothersome pelvic pain: Yes Last mammogram: today OB History Gravida0 Para0 Term0 Preterm0 AB0 Living0 SAB0 IAB0 Ectopic0 Multiple0 Live Births0 Quality Rep History LMP: 04/16/2024, Having periods Age at Menarche: 14 Age at First : Age at Menopause: Quality Rep History Comments: Sexual Activity: Not Currently; Male; Jail female infertility Contraception: None Menstrual Tracking History Flowsheet Row Office Visit from 05/11/2024 in OB/Gynecology Period Cycle (Days) 28 Period Duration (Days) 6 Menstrual Flow Heavy PAST MEDICAL HISTORY Diagnosis Date Aortic root dilation (HCC) 4.1 cm Cervical radiculopathy 04/03/2020 Cervical spondylosis without myelopathy 04/03/2020 Chronic mixed headache syndrome 10/31/2020 Coitus painful for female Endometriosis Family history of Marfan syndrome H/O alopecia areata Infertility, female LIPOMA OTHER SKIN & SUBCUTANEOUS(Left back) 01/20/2005 Major depressive disorder, single episode, mild (HCC) 2006 Marfan's syndrome Lens dislocation and aortic root dilation Ovarian cyst Uterine fibroid PAST SURGICAL HISTORY Procedure Laterality Date CATARACT SURGERY, COMPLEX Right 05/15/1992 CLEAR LENSECTOMY Left 03/24/2001 Left Lensectomy and anterior Chamber IOL Placement- Performed by Dr. Roberto Lucero CLEAR LENSECTOMY Right 09/19/2013 Lensectomy with Anterior Chamber IOL Placement- Performed by Dr. Jomar Lucero COLONOSCOPY SCREENING 01/16/2019 [facility]. Negative. Repeat 10 years. EXCISION TUMOR SOFT TISSUE BACK/FLANK SUBQ <3CM 01/27/2007 left scapular FNA WITH IMAGING Left 01/10/2015 U/S FNA left breast 3 Oclock LAPS ABD PRTM&OMENTUM DX W/WO SPEC BR/WA SPX 1981 Laparoscopy LASER IRIDOTOMY,IRIDECTOMY, ONE EYE Right 05/16/1992 LASER IRIDOTOMY,IRIDECTOMY, ONE EYE Left 03/24/2001 RMVL SEC MEMBRANOUS CTRC CORNEO-SCLL SCTJ Bilateral 99,2013 Insert lens prosthesis RPR 1ST INGUN HRNA AGE 5 YRS/> REDUCIBLE 1996 Hernia repair, inguinal FAMILY HISTORY Problem Relation Age of Onset Heart Mother Aortic disection (Marfan's syndrome) Lipids Mother other (Marfans) Mother Heart Father CAD and Heart failure Lipids Father Hypertension Father Heart Sister Cataract Sister Detached Retina Sister Cataract Sister Cataract Sister Blindness Sister other (Marfan's ) Sister Cataract Brother other (Aortic dissection) Brother Cataract Brother other (Aortic aneurysms) Brother Breast Cancer Paternal Grandmother BREAST Diabetes Paternal Grandmother SOCIAL HISTORY Social History Tobacco Use Smoking status: Former Current packs/day: 0.00 Average packs/day: 1 pack/day for 31.0 years (31.0 ttl pk-yrs) Types: Cigarettes Start date: 02/29/1980 Quit date: 02/28/2011 Years since quittin.2 Smokeless tobacco: Never Vaping Use Vaping status: Never Used Substance Use Topics Alcohol use: No Drug use: No REVIEW OF SYSTEMS Abdomen: No abdominal pain, nausea, vomiting, diarrhea, or constipation. No bloating, early satiety, indigestion, or increased flatulence. Bladder: No dysuria, gross hematuria, urinary frequency, urinary urgency, or incontinence Breast: No breast lumps, nipple d/c, overlying skin changes, redness or skin retraction Allergies and current medication updated:Yes SENSITIVE EXAM: The sensitive examination was discussed with the Patient or Patient's Authorized Business Applications Analyst. As applicable, any other physician, advance practice provider, medical student, or other health professional student that will be observing or involved in the sensitive examination for educational or training purposes was discussed with the Patient or Authorized Business Applications Analyst. The Patient or Authorized Business Applications Analyst has agreed to proceed with the sensitive examination. (Sensitive examination includes inspection and/or palpation of the breasts, pelvis, prostate and anorectal regions). EXAM: BP 124/82 Ht 5' 7 (1.70m) Wt 209 lb (94.8kg) LMP 04/16/2024 BMI 32.73 kg/(m^2). GENERAL: pleasant, female in no apparent distress HEENT: Normocephalic and atraumatic NECK: full range of motion DERMATOLOGY: Normal, without lesions, non-icteric, and non-hirsute BREAST: soft, non-tender, symmetric, no dominant mass, normal nipple-areolar complex, no lymphadenopathy, and no nipple discharge CHEST: Normal inspiratory effort ABDOMEN: soft, non-tender, and no masses PELVIC: external genitalia normal, normal Bartholin's glands, urethra, [place]'s glands, no vulvar lesions, no cervical lesions, good vaginal support, physiologic discharge present, perineum with whitening of the skin BIMANUAL: uterus normal size, shape and consistency, no adnexal masses, and non-tender RECTOVAGINAL: deferred. NEURO: exam grossly non-focal EXTREMITIES: normal ASSESSMENT/PLAN: 1) Health maintenance: Pap/HPV up to date. Mammogram ordered Nutrition, exercise and routine health maintenance exams reviewed. Colon cancer screening: up to date with screening TSH/lipids/glucose: followed by PCP Skin changes over perineum: Discussed possible etiologies. Recommend scheduling perineal biopsy 2) Follow up one year or sooner as needed Konstantin River DO documented in this encounter [facility] 05-11-2024 History of Present illness Narrative Radiology Service Progress Note PATIENT NAME: Itzel Soriano DATE OF SERVICE: May 11, 2024 TIME: 1:22 PM PATIENT IDENTITY VERIFICATION COMPLETED USING TWO (2) IDENTIFIERS: Name and Date of confirmed by patient verbally. FALL SCREENING: Has the patient had 2 falls in the last year or 1 fall with injury or currently using an Ambulatory Assistive Device (Walker, Cane, Wheelchair, Crutches, etc.)? No PATIENT GENDER DATA: Assigned female at . status: : No status: NO. PATIENT RELEVANT IMPLANT DATA REVIEWED: Not Applicable PATIENT PRESENTS WITH AN IMPLANTABLE OR ATTACHED DISCHARGE SPECIALIST: No RADIOLOGY DEPARTMENT: Mammography PERIPHERAL IV DATA: Not applicable SIGNED BY: RT Mariaa(R) May 11, 2024 1:22 PM documented in this encounter [facility] 05-11-2024 Note HNO ID: [id number] Author: BHARGAVI WILDER RT(R) Service: ? Author Type: Technologist Type: Progress Notes Filed: 05/11/2024 13:22 Note Text: Radiology Service Progress Note PATIENT NAME: Itzel Soriano DATE OF SERVICE: May 11, 2024 TIME: 1:22 PM PATIENT IDENTITY VERIFICATION COMPLETED USING TWO (2) IDENTIFIERS: Name and Date of confirmed by patient verbally. FALL SCREENING: Has the patient had 2 falls in the last year or 1 fall with injury or currently using an Ambulatory Assistive Device (Walker, Cane, Wheelchair, Crutches, etc.)? No PATIENT GENDER DATA: Assigned female at . status: : No status: NO. PATIENT RELEVANT IMPLANT DATA REVIEWED: Not Applicable PATIENT PRESENTS WITH AN IMPLANTABLE OR ATTACHED DISCHARGE SPECIALIST: No RADIOLOGY DEPARTMENT: Mammography PERIPHERAL IV DATA: Not applicable SIGNED BY: RT Mariaa(R) May 11, 2024 1:22 PM [facility] 03-22-2024 Note HNO ID: [id number] Author: JOVITA CHAVEZ MD Service: ? Author Type: Physician Type: Progress Notes Filed: 03/22/2024 22:44 Note Text: The patient presents for requested ultrasound. Full report available in the Imaging tab in Epic. Jovita Chavez MD [facility] 03-22-2024 History of Present illness Narrative The patient presents for requested ultrasound. Full report available in the Imaging tab in Epic. Jovita Chavez MD documented in this encounter [facility] 03-12-2024 History of Present illness Narrative Reason for Visit Patient presents with: Recheck: BP and pulse Itzel Soriano is a 58 year old female who presents here today for Above Complaints.. Health Maintenance Lung Cancer Screening Pneumococcal Vaccine: 50+(1 of - PCV) Influenza Vaccine(1) Covid-19 Vaccine( season) Mammogram Screening HPI This is a very pleasant 58-year-old woman with a past medical history of cervical radiculopathy Marfan syndrome which is a recent diagnosis, aortic root dilatation has been seen, adnexal mass, depression with anxiety, morbid major depression, obesity. Over the past couple weeks she felt that her blood pressure has been mildly on the elevated side especially with diastolic. She reports not feeling herself but no severe symptoms and did not like to be evaluated. She denies shortness of breath or chest pain. Reports taking potassium once several supplements a day because she was getting leg cramps after exercising. Notes that her bp is normal in the day time, abbi when she wakes up it is around 120/72 and sometimes it is around 127/80, at the end of the day it goes up to 140/92.. she does feel different at that time, feels more issues in her neck and the spine. she denies, sob, blurring of vision, chest pain,in the evening when bp is elevated, , she stopped the cymbalta as it was not effective for her. She is very stressed during the evening, going through some grief with husbands 6 months ago. Notes area of alopecia on the scalp and would like to have it treated. She appeared very anxious today and as open to taking a medication No problem-specific Assessment & Plan notes found for this encounter. PAST MEDICAL HISTORY Diagnosis Date Aortic root dilation (HCC) 4.1 cm Cervical radiculopathy 04/03/2020 Cervical spondylosis without myelopathy 04/03/2020 Chronic mixed headache syndrome 10/31/2020 Family history of Marfan syndrome H/O alopecia areata LIPOMA OTHER SKIN & SUBCUTANEOUS(Left back) 01/20/2005 Major depressive disorder, single episode, mild (HCC) 2006 Marfan's syndrome Lens dislocation and aortic root dilation PAST SURGICAL HISTORY Procedure Laterality Date CATARACT SURGERY, COMPLEX Right 05/15/1992 CLEAR LENSECTOMY Left 03/24/2001 Left Lensectomy and anterior Chamber IOL Placement- Performed by Dr. Roberto Lucero CLEAR LENSECTOMY Right 09/19/2013 Lensectomy with Anterior Chamber IOL Placement- Performed by Dr. Jomar Lucero COLONOSCOPY SCREENING 01/16/2019 [facility]. Negative. Repeat 10 years. EXCISION TUMOR SOFT TISSUE BACK/FLANK SUBQ <3CM 01/27/2007 left scapular FNA WITH IMAGING Left 01/10/2015 U/S FNA left breast 3 Oclock LAPS ABD PRTM&OMENTUM DX W/WO SPEC BR/WA SPX 1981 Laparoscopy LASER IRIDOTOMY,IRIDECTOMY, ONE EYE Right 05/16/1992 LASER IRIDOTOMY,IRIDECTOMY, ONE EYE Left 03/24/2001 RMVL SEC MEMBRANOUS CTRC CORNEO-SCLL SCTJ Bilateral Insert lens prosthesis RPR 1ST INGUN HRNA AGE 5 YRS/> REDUCIBLE 1996 Hernia repair, inguinal FAMILY HISTORY Problem Relation Age of Onset Heart Mother Aortic disection (Marfan's syndrome) Lipids Mother other (Marfans) Mother Heart Father CAD and Heart failure Lipids Father Hypertension Father Heart Sister Cataract Sister Detached Retina Sister Cataract Sister Cataract Sister Blindness Sister other (Marfan's ) Sister Cataract Brother other (Aortic dissection) Brother Cataract Brother other (Aortic aneurysms) Brother Breast Cancer Paternal Grandmother BREAST Diabetes Paternal Grandmother Social History Tobacco Use Smoking status: Former Current packs/day: 0.00 Average packs/day: 1 pack/day for 31.0 years (31.0 ttl pk-yrs) Types: Cigarettes Start date: 02/29/1980 Quit date: 02/28/2011 Years since quittin.0 Smokeless tobacco: Never Vaping Use Vaping status: Never Used Substance Use Topics Alcohol use: No Drug use: No Past medical history, appointments, medications, allergies reviewed. Pertinent Lab/Diagnostic Studies are reviewed and discussed today Current Outpatient Medications: losartan (COZAAR) 100 mg tablet atenolol (TENORMIN) 25 mg tablet omeprazole (PRILOSEC) 20 mg capsule mupirocin (BACTROBAN) 2 % ointment vitamin B complex (B COMPLEX 1 ORAL) cholecalciferol, vitamin D3, (VITAMIN D3 ORAL) calcium carb/D3/magnesium/zinc (CALCIUM CARB-D3-MAG OX-ZINC OX ORAL) Ascorbic Acid (VITAMIN C) 1,000 mg tablet Zinc Acetate, Oral, 50 mg (zinc) cap lysine 500 mg tab aspirin, enteric coated (ADULT LOW DOSE ASPIRIN) 81 mg EC tablet busPIRone (BUSPAR) 10 mg tablet calcium Carbonate 300 mg, 750mg, (TUMS) 300 mg (750 mg) chewable tablet Review of Systems CONSTITUTIONAL: No fevers, chills night sweats, unintended weight loss CARDIOVASCULAR: No chest pain, dyspnea, palpitations, orthopnea, PND, ankle edema. PULM: No dyspnea, unexplained cough. GI: No dysphagia/odynophagia, problematic reflux, constipation, diarrhea, changes in stool habits, hematochezia, melena. : No new urinary complaints, including dysuria, gross hematuria or pyuria. NEURO: No new balance problems, peripheral weakness/paresthesias or numbness of concern. Physical Exam BP 105/68 Pulse 70 Resp 16 Wt 92.1 kg (203 lb) LMP 02/12/2024 (Exact Date) SpO2 97% BMI 30.87 kg/m General appearance: Well appearing, alert, in no acute distress, well nourished. Skin: Skin color, texture, turgor normal, no suspicious rashes or lesions Head: Normocephalic, no masses, lesions, tenderness or abnormalities Eyes: Anicteric sclera. Pupils are equally round and reactive to light. Extraocular movements are intact. Lungs: Lungs clear to auscultation. No wheezing, rhonchi, rales Heart: RRR without murmur, gallop, or rubs. Extremities: No deformities, edema, skin discoloration, clubbing or cyanosis. Good capillary refill. ASSESSMENT/PLAN: 1. Alopecia areata - ICD9: 704.01, ICD10: L63.9 (primary diagnosis) - CONSULT TO DERMATOLOGY 2. Anxiety - ICD9: 300.00, ICD10: F41.9 [place] of bupsar as needed at night time, as that seem to be the most anxiety provoking time for her 3. Cervical radiculopathy at C6 - ICD9: 723.4, ICD10: M54.12 - [facility] Also asked her to change the timing she takes her Arb from morning to night time Ameena Larsen MD documented in this encounter [facility] 03-12-2024 Note HNO ID: [id number] Author: AMEENA LARSEN MD Service: ? Author Type: Physician Type: Progress Notes Filed: 03/12/2024 18:11 Note Text: Reason for Visit Patient presents with: Recheck: BP and pulse Itzel Soriano is a 58 year old female who presents here today for Above Complaints.. Health Maintenance Lung Cancer Screening Pneumococcal Vaccine: 50+(1 of - PCV) Influenza Vaccine(1) Covid-19 Vaccine( season) Mammogram Screening HPI This is a very pleasant 58-year-old woman with a past medical history of cervical radiculopathy Marfan syndrome which is a recent diagnosis, aortic root dilatation has been seen, adnexal mass, depression with anxiety, morbid major depression, obesity. Over the past couple weeks she felt that her blood pressure has been mildly on the elevated side especially with diastolic. She reports not feeling herself but no severe symptoms and did not like to be evaluated. She denies shortness of breath or chest pain. Reports taking potassium once several supplements a day because she was getting leg cramps after exercising. Notes that her bp is normal in the day time, abbi when she wakes up it is around 120/72 and sometimes it is around 127/80, at the end of the day it goes up to 140/92.. she does feel different at that time, feels more issues in her neck and the spine. she denies, sob, blurring of vision, chest pain,in the evening when bp is elevated, , she stopped the cymbalta as it was not effective for her. She is very stressed during the evening, going through some grief with husbands 6 months ago. Notes area of alopecia on the scalp and would like to have it treated. She appeared very anxious today and as open to taking a medication No problem-specific Assessment AND Plan notes found for this encounter. PAST MEDICAL HISTORY Diagnosis Date Aortic root dilation (HCC) 4.1 cm Cervical radiculopathy 04/03/2020 Cervical spondylosis without myelopathy 04/03/2020 Chronic mixed headache syndrome 10/31/2020 Family history of Marfan syndrome H/O alopecia areata LIPOMA OTHER SKIN AND SUBCUTANEOUS(Left back) 01/20/2005 Major depressive disorder, single episode, mild (HCC) 2006 Marfan's syndrome Lens dislocation and aortic root dilation PAST SURGICAL HISTORY Procedure Laterality Date CATARACT SURGERY, COMPLEX Right 05/15/1992 CLEAR LENSECTOMY Left 03/24/2001 Left Lensectomy and anterior Chamber IOL Placement- Performed by Dr. Roberto Lucero CLEAR LENSECTOMY Right 09/19/2013 Lensectomy with Anterior Chamber IOL Placement- Performed by Dr. Jomar Lucero COLONOSCOPY SCREENING 01/16/2019 [facility]. Negative. Repeat 10 years. EXCISION TUMOR SOFT TISSUE BACK/FLANK SUBQ <3CM 01/27/2007 left scapular FNA WITH IMAGING Left 01/10/2015 U/S FNA left breast 3 Oclock LAPS ABD PRTMANDOMENTUM DX W/WO SPEC BR/WA SPX 1981 Laparoscopy LASER IRIDOTOMY,IRIDECTOMY, ONE EYE Right 05/16/1992 LASER IRIDOTOMY,IRIDECTOMY, ONE EYE Left 03/24/2001 [facility] CORNEO-SCLL SCTJ Bilateral Insert lens prosthesis RPR 1ST INGUN HRNA AGE 6 YRS/> REDUCIBLE 1996 Hernia repair, inguinal FAMILY HISTORY Problem Relation Age of Onset Heart Mother Aortic disection (Marfan's syndrome) Lipids Mother other (Marfans) Mother Heart Father CAD and Heart failure Lipids Father Hypertension Father Heart Sister Cataract Sister Detached Retina Sister Cataract Sister Cataract Sister Blindness Sister other (Marfan's ) Sister Cataract Brother other (Aortic dissection) Brother Cataract Brother other (Aortic aneurysms) Brother Breast Cancer Paternal Grandmother BREAST Diabetes Paternal Grandmother Social History Tobacco Use Smoking status: Former Current packs/day: 0.00 Average packs/day: 1 pack/day for 31.0 years (31.0 ttl pk-yrs) Types: Cigarettes Start date: 02/29/1980 Quit date: 02/28/2011 Years since quittin.0 Smokeless tobacco: Never Vaping Use Vaping status: Never Used Substance Use Topics Alcohol use: No Drug use: No Past medical history, appointments, medications, allergies reviewed. Pertinent Lab/Diagnostic Studies are reviewed and discussed today Current Outpatient Medications: losartan (COZAAR) 100 mg tablet atenolol (TENORMIN) 25 mg tablet omeprazole (PRILOSEC) 20 mg capsule mupirocin (BACTROBAN) 2 % ointment vitamin B complex (B COMPLEX 1 ORAL) cholecalciferol, vitamin D3, (VITAMIN D3 ORAL) calcium carb/D3/magnesium/zinc (CALCIUM CARB-D3-MAG OX-ZINC OX ORAL) Ascorbic Acid (VITAMIN C) 1,000 mg tablet Zinc Acetate, Oral, 50 mg (zinc) cap lysine 500 mg tab aspirin, enteric coated (ADULT LOW DOSE ASPIRIN) 81 mg EC tablet busPIRone (BUSPAR) 10 mg tablet calcium Carbonate 300 mg, 750mg, (TUMS) 300 mg (750 mg) chewable tablet Review of Systems CONSTITUTIONAL: No fevers, chills night sweats, unintended weight loss CARDIOVASCULAR: No chest pain, dyspnea, palpi (more content not included)... [facility] 03-12-2024 Telephone encounter Note Patient calling in to request appointment. Pt states she has been having increases in her BP and pulse since last Tuesday or Tuesday. Reports diagnosis of anxiety and Marfan's Syndrome. States not feeling herself but no severe sx's. Pt would like evaluation. BP examples over this past week: 128/92, 132/93. States higher diastolics for her. Takes losartan every morning and atenolol every evening. During call BP 119/84 and Pulse 71 using home BP machine. No SOB or chest pain now. States at times has gotten 3-4 out of 10 chest pressure over the last several months. Reports took potassium supplements for a few days last week because she was getting leg cramping after exercising. She has stopped taking them. States she received pneumonia vaccine this past Tuesday and thinks maybe this has contributed to her not feeling herself, as well. Reports history of self-stopping her Cymbalta late December or January and experienced bad side effects from that but restarted it. States she feels her C6-C7 issues contribute as well. Pt requesting to see physician today. No appts available with Dr. Dumas today. Pt requested to see Dr. Larsen this morning. Appt made. Tawnya Nogueira RN [facility] 03-12-2024 Miscellaneous Notes Patient calling in to request appointment. Pt states she has been having increases in her BP and pulse since last Tuesday or Tuesday. Reports diagnosis of anxiety and Marfan's Syndrome. States not feeling herself but no severe sx's. Pt would like evaluation. BP examples over this past week: 128/92, 132/93. States higher diastolics for her. Takes losartan every morning and atenolol every evening. During call BP 119/84 and Pulse 71 using home BP machine. No SOB or chest pain now. States at times has gotten 3-4 out of 10 chest pressure over the last several months. Reports took potassium supplements for a few days last week because she was getting leg cramping after exercising. She has stopped taking them. States she received pneumonia vaccine this past Tuesday and thinks maybe this has contributed to her not feeling herself, as well. Reports history of self-stopping her Cymbalta late December or January and experienced bad side effects from that but restarted it. States she feels her C6-C7 issues contribute as well. Pt requesting to see physician today. No appts available with Dr. Dumas today. Pt requested to see Dr. Larsen this morning. Appt made. Tawnya Nogueira RN documented in this encounter [facility] 03-01-2024 Telephone encounter Note Call from patient requesting refill. Requested Prescriptions Pending Prescriptions Disp Refills losartan (COZAAR) 100 mg tablet 90 tablet 3 Sig: Take 1 tablet by mouth once daily. atenolol (TENORMIN) 25 mg tablet 90 tablet 3 Sig: Take 1 tablet by mouth once daily. Patient last seen 10/19/2023 Eleonora Schmidt [facility] 01-02-2025 Miscellaneous Notes Call from patient requesting refill. Requested Prescriptions Pending Prescriptions Disp Refills losartan (COZAAR) 100 mg tablet 90 tablet 3 Sig: Take 1 tablet by mouth once daily. atenolol (TENORMIN) 25 mg tablet 90 tablet 3 Sig: Take 1 tablet by mouth once daily. Patient last seen 10/19/2023 Eleonora Schmidt documented in this encounter [facility] 01-02-2024 Note HNO ID: [id number] Author: NOHEMY DAVIS APRN.[employer] Service: ? Author Type: Nurse Practitioner Type: Progress Notes Filed: 01/02/2024 13:32 Note Text: LUPE Soriano is a 58 year old female here today for a check up on her medical problems. Chief Complaint Patient presents with: Medication Problem: had stopped cymbalta as she felt that the PT was helping with her pain and didn't need it anymore Started with dizziness/nausea on Tuesday and Tuesday started with mood changes and crying for no reason. HPI Itzel Soriano is a 58 year old female. She is an established patient of Lenny Dumas MD. Stopped her Cymbalta. She was not having any issues while taking the medication but PT helped her neck pain. Mood is okay, managing panic attacks. She had decreased her Cymbalta to every other day. Last dose was . Since being completely off of the medication she is having what she feels might be withdrawal symptoms, some dizziness, nausea, moodiness. Yesterday seemed to be the worst of it, a little better today. Her medications were reviewed today and her list is now up to date. Medications Current Outpatient Medications Medication Sig losartan (COZAAR) 100 mg tablet Take 1 tablet by mouth once daily. atenolol (TENORMIN) 25 mg tablet Take 1 tablet by mouth once daily. omeprazole (PRILOSEC) 20 mg capsule Take 1 capsule by mouth daily before breakfast. 1/2 hr before meal. mupirocin (BACTROBAN) 2 % ointment Apply to affected area three times daily. Treat for 10 days or as directed. Apply intranasal vitamin B complex (B COMPLEX 1 ORAL) Take 1 capsule by mouth every Tuesday and Tuesday. cholecalciferol, vitamin D3, (VITAMIN D3 ORAL) Take 10,000 Units by mouth. Twice a week calcium carb/D3/magnesium/zinc (CALCIUM CARB-D3-MAG OX-ZINC OX ORAL) Take by mouth. 1 capsule three times a week Ascorbic Acid (VITAMIN C) 1,000 mg tablet Take 2,000 mg by mouth. Three times a week Zinc Acetate, Oral, 50 mg (zinc) cap Take 1 capsule by mouth. Three times a week lysine 500 mg tab Take 500 mg by mouth as needed. aspirin, enteric coated (ADULT LOW DOSE ASPIRIN) 81 mg EC tablet Take 1 tablet by mouth once daily. calcium Carbonate 300 mg, 750mg, (TUMS) 300 mg (750 mg) chewable tablet Take by mouth as needed. (Patient not taking: Reported on 01/02/2024) No current facility-administered medications for this visit. ALLERGIES Allergen Reactions Baclofen GI Upset Cipro [Ciprofloxaci* Hives, Swelling Gabapentin Intolerance Macrobid [Nitrofura* Hives, Swelling Sulfa (Sulfonamide * Hives, Swelling Tramadol Other: See Comments when taken with Baclofen ACTIVE PROBLEM LIST Moderate Major Depression (Hcc) - 09/12/2022 Adnexal Mass - 04/20/2021 Liver Cyst - 04/20/2021 Depression With Anxiety - 04/08/2021 Chronic Mixed Headache Syndrome - 10/31/2020 Obesity, Class I, Bmi 30-34.9 - 10/31/2020 Anxiety - 10/31/2020 Cervical Radiculopathy - 04/03/2020 Family History of Marfan Syndrome Aortic Root Dilation (Hcc) Comment: 4.1 cm Marfan's Syndrome Comment: Lens dislocation and aortic root dilation Social History Tobacco Use Smoking status: Former Current packs/day: 0.00 Average packs/day: 1 pack/day for 31.0 years (31.0 ttl pk-yrs) Types: Cigarettes Start date: 02/29/1980 Quit date: 02/28/2011 Years since quittin.8 Smokeless tobacco: Never Vaping Use Vaping status: Never Used Substance Use Topics Alcohol use: No Drug use: No Review of Systems Respiratory: Negative. Cardiovascular: Negative. OBJECTIVE BP 118/78 Pulse 72 Wt 197 lb 12 oz (89.7kg) SpO2 98% LMP 11/07/2023 Physical Exam Vitals and nursing note reviewed. Constitutional: General: She is awake. She is not in acute distress. Appearance: Normal appearance. She is well-developed and well-groomed. She is not ill-appearing, toxic-appearing or diaphoretic. HENT: Head: Normocephalic. Right Ear: External ear normal. Left Ear: External ear normal. Nose: Nose normal. Eyes: General: Vision grossly intact. Conjunctiva/sclera: Conjunctivae normal. Pupils: Pupils are equal, round, and reactive to light. Neck: Vascular: No JVD. Trachea: Trachea normal. Cardiovascular: Rate and Rhythm: Normal rate and regular rhythm. Pulses: Normal pulses. Heart sounds: Normal heart sounds. No murmur heard. Pulmonary: Effort: Pulmonary effort is normal. No accessory muscle usage, prolonged expiration or respiratory distress. Breath sounds: Normal breath sounds. Musculoskeletal: Cervical back: Neck supple. Skin: General: Skin is warm and dry. Capillary Refill: Capillary refill takes less than 2 seconds. Neurological: General: No focal deficit present. Mental Status: She is alert and oriented to person, place, and time. Mental status is at baseline. Psychiatric: Attention and Perception: Attention and perception normal. Mood and Affect: Mood and affect sharita (more content not included)... [facility] 01-02-2024 History of Present illness Narrative SUBJECTIVE Itzel Soriano is a 58 year old female here today for a check up on her medical problems. Chief Complaint Patient presents with: Medication Problem: had stopped cymbalta as she felt that the PT was helping with her pain and didn't need it anymore Started with dizziness/nausea on Tuesday and Tuesday started with mood changes and crying for no reason. HPI Itzel Soriano is a 58 year old female. She is an established patient of Lenny Dumas MD. Stopped her Cymbalta. She was not having any issues while taking the medication but PT helped her neck pain. Mood is okay, managing panic attacks. She had decreased her Cymbalta to every other day. Last dose was . Since being completely off of the medication she is having what she feels might be withdrawal symptoms, some dizziness, nausea, moodiness. Yesterday seemed to be the worst of it, a little better today. Her medications were reviewed today and her list is now up to date. Medications Current Outpatient Medications Medication Sig losartan (COZAAR) 100 mg tablet Take 1 tablet by mouth once daily. atenolol (TENORMIN) 25 mg tablet Take 1 tablet by mouth once daily. omeprazole (PRILOSEC) 20 mg capsule Take 1 capsule by mouth daily before breakfast. 1/2 hr before meal. mupirocin (BACTROBAN) 2 % ointment Apply to affected area three times daily. Treat for 10 days or as directed. Apply intranasal vitamin B complex (B COMPLEX 1 ORAL) Take 1 capsule by mouth every Tuesday and Tuesday. cholecalciferol, vitamin D3, (VITAMIN D3 ORAL) Take 10,000 Units by mouth. Twice a week calcium carb/D3/magnesium/zinc (CALCIUM CARB-D3-MAG OX-ZINC OX ORAL) Take by mouth. 1 capsule three times a week Ascorbic Acid (VITAMIN C) 1,000 mg tablet Take 2,000 mg by mouth. Three times a week Zinc Acetate, Oral, 50 mg (zinc) cap Take 1 capsule by mouth. Three times a week lysine 500 mg tab Take 500 mg by mouth as needed. aspirin, enteric coated (ADULT LOW DOSE ASPIRIN) 81 mg EC tablet Take 1 tablet by mouth once daily. calcium Carbonate 300 mg, 750mg, (TUMS) 300 mg (750 mg) chewable tablet Take by mouth as needed. (Patient not taking: Reported on 01/02/2024) No current facility-administered medications for this visit. ALLERGIES Allergen Reactions Baclofen GI Upset Cipro [Ciprofloxaci* Hives, Swelling Gabapentin Intolerance Macrobid [Nitrofura* Hives, Swelling Sulfa (Sulfonamide * Hives, Swelling Tramadol Other: See Comments when taken with Baclofen ACTIVE PROBLEM LIST Moderate Major Depression (Hcc) - 09/12/2022 Adnexal Mass - 04/20/2021 Liver Cyst - 04/20/2021 Depression With Anxiety - 04/08/2021 Chronic Mixed Headache Syndrome - 10/31/2020 Obesity, Class I, Bmi 30-34.9 - 10/31/2020 Anxiety - 10/31/2020 Cervical Radiculopathy - 04/03/2020 Family History of Marfan Syndrome Aortic Root Dilation (Hcc) Comment: 4.1 cm Marfan's Syndrome Comment: Lens dislocation and aortic root dilation Social History Tobacco Use Smoking status: Former Current packs/day: 0.00 Average packs/day: 1 pack/day for 31.0 years (31.0 ttl pk-yrs) Types: Cigarettes Start date: 02/29/1980 Quit date: 02/28/2011 Years since quittin.8 Smokeless tobacco: Never Vaping Use Vaping status: Never Used Substance Use Topics Alcohol use: No Drug use: No Review of Systems Respiratory: Negative. Cardiovascular: Negative. OBJECTIVE BP 118/78 Pulse 72 Wt 197 lb 12 oz (89.7kg) SpO2 98% LMP 11/07/2023 Physical Exam Vitals and nursing note reviewed. Constitutional: General: She is awake. She is not in acute distress. Appearance: Normal appearance. She is well-developed and well-groomed. She is not ill-appearing, toxic-appearing or diaphoretic. HENT: Head: Normocephalic. Right Ear: External ear normal. Left Ear: External ear normal. Nose: Nose normal. Eyes: General: Vision grossly intact. Conjunctiva/sclera: Conjunctivae normal. Pupils: Pupils are equal, round, and reactive to light. Neck: Vascular: No JVD. Trachea: Trachea normal. Cardiovascular: Rate and Rhythm: Normal rate and regular rhythm. Pulses: Normal pulses. Heart sounds: Normal heart sounds. No murmur heard. Pulmonary: Effort: Pulmonary effort is normal. No accessory muscle usage, prolonged expiration or respiratory distress. Breath sounds: Normal breath sounds. Musculoskeletal: Cervical back: Neck supple. Skin: General: Skin is warm and dry. Capillary Refill: Capillary refill takes less than 2 seconds. Neurological: General: No focal deficit present. Mental Status: She is alert and oriented to person, place, and time. Mental status is at baseline. Psychiatric: Attention and Perception: Attention and perception normal. Mood and Affect: Mood and affect normal. Speech: Speech normal. Behavior: Behavior normal. Behavior is cooperative. Thought Content: Thought content normal. Cognition and Memory: Cognition and memory normal. Judgment: Judgment normal. ASSESSMENT/PLAN: 1. Cervical radiculopathy - ICD9: 723.4, ICD10: M54.12 (primary diagnosis) Neck pain stable, stopped Cymbalta and managing without meds. 2. Depression with anxiety - ICD9: 300.4, ICD10: F41.8 Mood okay, managing with healthy coping. 3. Medication side effects - ICD9: 995.20, ICD10: T88.7XXA Stopped Cymbalta and had side effects, sounds like now improving. Nohemy Davis APRN.CNP Portions of this note have been entered by ancillary staff. I have reviewed and when necessary edited, so that they are an adequate record of my encounter with this patient Please note that parts of this document were created using voice recognition software and therefore may contain grammatical errors. Patient verbalizes understanding of instructions from today's visit and in agreement with treatment plan. Questions answered. Agrees to call the office if questions, concerns of issues with acute symptoms not improving or if they worsen. See diagnoses and orders for additional plan(s). Allergies and medications were reviewed, list was updated, and refills given if needed. Past medical, surgical, social, and family history reviewed and updated as appropriate. Encouraged proper diet & exercise as well as compliance with taking medications. Age-appropriate health preventative measures were discussed. Return if symptoms worsen or fail to improve, for Keep next scheduled appointment.. Nohemy Davis APRN-ZOIE documented in this encounter [facility] 01-02-2024 Telephone encounter Note Patient call in for dizziness, nausea, and vomiting x 3 days. Patient took self off of Cymbalta. Patient thinks this is withdrawal symptom. Nurse Triage assessment completed with protocol recommending for disposition of see PCP in 24 hours. Patient scheduled to see Nohemy this afternoon to discuss. Care advice reviewed with patient, patient stated understanding. Reason for Disposition Taking a medicine that could cause dizziness (e.g., blood pressure medications, diuretics) Answer Assessment - Initial Assessment Questions 1. DESCRIPTION: Patient states that she has been feeling dizzy 2. LIGHTHEADED: Somewhat faint 3. VERTIGO: Denies 4. SEVERITY: Mild 5. ONSET: X 3 days ago 6. AGGRAVATING FACTORS: Denies 7. HEART RATE: Unsure 8. CAUSE: Patient took herself off of Cymbalta 20 mg 3 or 4 days ago. Patient states that she thought it was a low dose so she wouldn't have to wean self off of medication 9. RECURRENT SYMPTOM: Denies 10. OTHER SYMPTOMS: Nausea and vomiting x 1 Protocols used: Dizziness - [id number] [facility] 01-02-2024 Miscellaneous Notes Patient call in for dizziness, nausea, and vomiting x 3 days. Patient took self off of Cymbalta. Patient thinks this is withdrawal symptom. Nurse Triage assessment completed with protocol recommending for disposition of see PCP in 24 hours. Patient scheduled to see Nohemy this afternoon to discuss. Care advice reviewed with patient, patient stated understanding. Reason for Disposition Taking a medicine that could cause dizziness (e.g., blood pressure medications, diuretics) Answer Assessment - Initial Assessment Questions 1. DESCRIPTION: Patient states that she has been feeling dizzy 2. LIGHTHEADED: Somewhat faint 3. VERTIGO: Denies 4. SEVERITY: Mild 5. ONSET: X 3 days ago 6. AGGRAVATING FACTORS: Denies 7. HEART RATE: Unsure 8. CAUSE: Patient took herself off of Cymbalta 20 mg 3 or 4 days ago. Patient states that she thought it was a low dose so she wouldn't have to wean self off of medication 9. RECURRENT SYMPTOM: Denies 10. OTHER SYMPTOMS: Nausea and vomiting x 1 Protocols used: Dizziness - [id number] documented in this encounter [facility] 11-21-2023 Telephone encounter Note Patient is scheduled for appointment 06/2024 and would like to complete labs prior to appointment. Please review and file pended orders. [facility] 11-21-2023 Miscellaneous Notes Patient is scheduled for appointment 06/2024 and would like to complete labs prior to appointment. Please review and file pended orders. documented in this encounter [facility] 11-21-2023 History of Present illness Narrative SUBJECTIVE Itzel Soriano is a 58 year old female here today for a check up on her medical problems. Chief Complaint Patient presents with: Recheck Neck Pain HPI Itzel Soriano is a 58 year old female. She is an established patient of Lenny Dumas MD. Since last visit her rather unexpectedly. She states at this point she is managing, coping. Doing okay. Taking the Cymbalta daily. Started PT for her neck, helping some. Xray with mild to moderate degenerative changes. She was wondering about a new referral to discuss EGD for her GERD/LPRD. Otherwise doing okay. Her medications were reviewed today and her list is now up to date. Medications Current Outpatient Medications Medication Sig losartan (COZAAR) 100 mg tablet Take 1 tablet by mouth once daily. atenolol (TENORMIN) 25 mg tablet Take 1 tablet by mouth once daily. omeprazole (PRILOSEC) 20 mg capsule Take 1 capsule by mouth daily before breakfast. 1/2 hr before meal. mupirocin (BACTROBAN) 2 % ointment Apply to affected area three times daily. Treat for 10 days or as directed. Apply intranasal calcium Carbonate 300 mg, 750mg, (TUMS) 300 mg (750 mg) chewable tablet Take by mouth as needed. vitamin B complex (B COMPLEX 1 ORAL) Take 1 capsule by mouth every Tuesday and Tuesday. cholecalciferol, vitamin D3, (VITAMIN D3 ORAL) Take 10,000 Units by mouth. Twice a week calcium carb/D3/magnesium/zinc (CALCIUM CARB-D3-MAG OX-ZINC OX ORAL) Take by mouth. 1 capsule three times a week Ascorbic Acid (VITAMIN C) 1,000 mg tablet Take 2,000 mg by mouth. Three times a week Zinc Acetate, Oral, 50 mg (zinc) cap Take 1 capsule by mouth. Three times a week lysine 500 mg tab Take 500 mg by mouth as needed. aspirin, enteric coated (ADULT LOW DOSE ASPIRIN) 81 mg EC tablet Take 1 tablet by mouth once daily. DULoxetine (CYMBALTA) 20 mg capsule Take 1 capsule by mouth once daily. No current facility-administered medications for this visit. ALLERGIES Allergen Reactions Baclofen GI Upset Cipro [Ciprofloxaci* Hives, Swelling Gabapentin Intolerance Macrobid [Nitrofura* Hives, Swelling Sulfa (Sulfonamide * Hives, Swelling Tramadol Other: See Comments when taken with Baclofen ACTIVE PROBLEM LIST Moderate Major Depression (Hcc) - 09/12/2022 Adnexal Mass - 04/20/2021 Liver Cyst - 04/20/2021 Depression With Anxiety - 04/08/2021 Chronic Mixed Headache Syndrome - 10/31/2020 Obesity, Class I, Bmi 30-34.9 - 10/31/2020 Anxiety - 10/31/2020 Cervical Radiculopathy - 04/03/2020 Family History of Marfan Syndrome Aortic Root Dilation (Hcc) Comment: 4.1 cm Marfan's Syndrome Comment: Lens dislocation and aortic root dilation Social History Tobacco Use Smoking status: Former Current packs/day: 0.00 Average packs/day: 1 pack/day for 31.0 years (31.0 ttl pk-yrs) Types: Cigarettes Start date: 02/29/1980 Quit date: 02/28/2011 Years since quittin.7 Smokeless tobacco: Never Vaping Use Vaping status: Never Used Substance Use Topics Alcohol use: No Drug use: No Review of Systems Respiratory: Negative. Cardiovascular: Negative. OBJECTIVE BP 114/80 Pulse 61 Wt 201 lb 8 oz (91.4kg) SpO2 97% LMP 11/07/2023 Physical Exam Vitals and nursing note reviewed. Constitutional: General: She is awake. She is not in acute distress. Appearance: Normal appearance. She is well-developed and well-groomed. She is not ill-appearing, toxic-appearing or diaphoretic. HENT: Head: Normocephalic. Right Ear: External ear normal. Left Ear: External ear normal. Nose: Nose normal. Eyes: General: Vision grossly intact. Conjunctiva/sclera: Conjunctivae normal. Pupils: Pupils are equal, round, and reactive to light. Neck: Vascular: No JVD. Trachea: Trachea normal. Cardiovascular: Rate and Rhythm: Normal rate and regular rhythm. Pulses: Normal pulses. Heart sounds: Normal heart sounds. No murmur heard. Pulmonary: Effort: Pulmonary effort is normal. No accessory muscle usage, prolonged expiration or respiratory distress. Breath sounds: Normal breath sounds. Musculoskeletal: Cervical back: Neck supple. Skin: General: Skin is warm and dry. Capillary Refill: Capillary refill takes less than 2 seconds. Neurological: General: No focal deficit present. Mental Status: She is alert and oriented to person, place, and time. Mental status is at baseline. Psychiatric: Attention and Perception: Attention and perception normal. Mood and Affect: Mood and affect normal. Speech: Speech normal. Behavior: Behavior normal. Behavior is cooperative. Thought Content: Thought content normal. Cognition and Memory: Cognition and memory normal. Judgment: Judgment normal. ASSESSMENT/PLAN: 1. Depression with anxiety - ICD9: 300.4, ICD10: F41.8 (primary diagnosis) Managing okay with the loss of her , would like to keep Cymbalta at current dose, discussed room to increase if needed. - DULOXETINE 20 MG CAPSULE,DELAYED RELEASE 2. Grief - ICD9: 309.0, ICD10: F43.21 See #1 3. Cervical radiculopathy - ICD9: 723.4, ICD10: M54.12 Stable, working with PT. - DULOXETINE 20 MG CAPSULE,DELAYED RELEASE 4. Cervical disc herniation - ICD9: 722.0, ICD10: M50.20 See #3 - DULOXETINE 20 MG CAPSULE,DELAYED RELEASE 5. Gastroesophageal reflux disease without esophagitis - ICD9: 530.81, ICD10: K21.9 Stable, continue current meds, discuss EGD with general surgery. - CONSULT TO GENERAL SURGERY 6. LPRD (laryngopharyngeal reflux disease) - ICD9: 478.79, ICD10: K21.9 See above. - CONSULT TO GENERAL SURGERY Portions of this note have been entered by ancillary staff. I have reviewed and when necessary edited, so that they are an adequate record of my encounter with this patient Please note that parts of this document were created using voice recognition software and therefore may contain grammatical errors. Patient verbalizes understanding of instructions from today's visit and in agreement with treatment plan. Questions answered. Agrees to call the office if questions, concerns of issues with acute symptoms not improving or if they worsen. See diagnoses and orders for additional plan(s). Allergies and medications were reviewed, list was updated, and refills given if needed. Past medical, surgical, social, and family history reviewed and updated as appropriate. Encouraged proper diet & exercise as well as compliance with taking medications. Age-appropriate health preventative measures were discussed. Return in about 6 months (around 05/20/2024) for Follow up on chronic conditions and medications.. Nohemy Davis APRN-ZOIE documented in this encounter [facility] 11-08-2023 History of Present illness Narrative Program_ID:[id number] Access Code: [email or web address] URL: [email or web address] Date: 11-08-2023 Prepared By: Brianna Horta Program Notes Exercises - Shoulder External Rotation and Scapular Retraction with Resistance - 2 x daily - 7 x weekly - 3 sets - 1 reps - Shoulder External Rotation and Scapular Retraction with Resistance - 1 x daily - 7 x weekly - 4 sets - 10 reps - Supine Cervical Retraction with Towel - 2 x daily - 7 x weekly - 4 sets - 10 reps - Eccentric Deep Neck Flexor Training - 1 x daily - 7 x weekly - 2 sets - 5 reps Episode Visit Count: 2 Therapist That Will Accept/Oversee The Plan Of Care: Brianna Horta Start of Care Date: 10/14/23 Onset Date: 02/12/23 Plan of Care Certification Date: 10/14/23 Next Certification Due Date: 11/25/23 REHABILITATION AND SPORTS THERAPY PHYSICAL THERAPY TREATMENT NOTE ASSESSMENT: Itzel Soriano tolerated the session with decreased symptoms. She demonstrated difficulty with correct technique with cervical retraction but was able to maintain deep cervical retraction static hold for 10 sec. The patient will continue to benefit from ongoing skilled physical therapy to progress toward set goals. PLAN FOR NEXT VISIT: wall push ups, wall walks, continue deep neck flexor hold SUBJECTIVE: Completing HEP every other day and states that it is a little better. However, reports increased stiffness in the RUE with use, such as when brushing the teeth. She is trying to relax more. Pain: Pain Pain Level: 3 Pain Location: Neck - Right Description: Stiffness Frequency: With movement Additional Pain Information : Location 2 Pain Level 2: 1 Pain Location 2: Hand - Right (palmar surface) Description 2: Stiffness Frequency 2: Continuous Post Treatment Pain Post Treatment Pain Level: 1 Post Treatment Pain Location: Neck - Right OBJECTIVE MEASURES WITH LEVEL OF FUNCTION: TREATMENT: Therapeutic Exercise: 1: seated UE erg magnum level 1 3 min fwd, and 3 min reverse 1:1 throughout, subjective collected 2: *Access Code: [email or web address] URL: [email or web address] Date: 11/08/2023 Prepared by: Brianna Shi Exercises - Shoulder External Rotation and Scapular Retraction with Resistance - 2 x daily - 7 x weekly - 3 sets - 1 reps - 30 hold - Shoulder External Rotation and Scapular Retraction with Resistance - 1 x daily - 7 x weekly - 4 sets - 10 reps - Supine Cervical Retraction with Towel - 2 x daily - 7 x weekly - 4 sets - 10 reps - Eccentric Deep Neck Flexor Training - 1 x daily - 7 x weekly - 2 sets - 5 reps - 10 hold 3: supine cervical retraction rotation 10x each side with 5-10 sec hold - rotation ROM improved each set 4: *green band issued Skilled Intervention: Patient was educated in proper exercise technique and purpose for exercises. Reviewed and educated patient on additions/changes for home exercise program as above (*). Skilled judgment was used in selection of appropriate interventions. Provided written instruction for home exercise program to facilitate proper performance and compliance. Correct performance of therapeutic exercises was facilitated with verbal, visual, and tactile cuing. Educated patient on rationale for performing exercises in regards to decreasing fatigue , increase ease of ADL, and ROM and function . Patient education as noted. Self-Long Term Management: 1: discussed the difference between cervical spine stabilizing muscles vs. mobilizers 2: discussed that weight loss goals should be addressed with physician who may recommend a dietitian or station engineer main line 3: showed pt. a SCM muscle image Skilled Intervention: Skilled judgment in the selection of proper modification for activity of daily living/home management based on clinical presentation, deficits, and needs. Provided written instruction for activities of daily living techniques to facilitate proper performance and compliance. Reviewed patient specific diagnosis in relation to activities of daily living/home management. Activity progression based on professional judgement. Moderate verbal cues for maintaining neutral spine alignment. Reviewed and educated patient on additions/changes for home program as noted above with an (*). Provided written instruction for home program to facilitate proper performance and compliance. Correct performance of home program was facilitated with verbal, visual, and tactile\ cueing. Billing Therapeutic Exercise Treatment Minutes: 30 Self-Care/Home Management Treatment Minutes: 10 Skilled Treatment Time Minutes (timed and untimed codes): 40 Total Session Time (minutes): 40 Session Start Time : 0900 Session Stop Time : 939 Brianna Horta PT documented in this encounter [facility] 11-04-2023 History of Present illness Narrative Images from the original note were not included. [facility] [place] [facility] Department of Cardiovascular Medicine SECTION OF CARDIOVASCULAR IMAGING OUTPATIENT VISIT DATE October 19, 2023 OUTPATIENT VISIT TYPE ESTABLISHED PRIMARY CARE PHYSICIAN: Lenny Dumas MD [id number] [facility] [id number] CHIEF COMPLAINT: Squeezing pain in the chest HISTORY OF PRESENT ILLNESS: Ms. Jaimes (Lupillo Soriano is a 56 year old female who presents today for annual follow-up visit. She has history of Marfan syndrome and aortic root dilation. She was last seen in the office in June 2022 and at the time of her last visit, she underwent an Echocardiogram that showed normal LV function with mild aortic root dilation (4.2 cm) similar to the CTA chest in February 2018 that showed mild stable dilation of the aortic root (4.3 cm) with normal appearing coronary arteries. She was reassured and recommended continued surveillance and medical therapy with atenolol and losartan. Since her last visit, Ms. Soriano continues to follow up with PCP. She is currently grieving the of her and has been under stress. She continues to note nonspecific symptoms of chest pressure on the left side of the chest that is noted at night and describes as squeezing pain. She continues to have tingling and headaches. Today, she has no cardiac symptoms and she denies anginal chest pain, pressure or heaviness, shortness of breath, orthopnea, edema, PND, lightheadedness or syncope. Ms. Soriano is currently on aspirin, atenolol and losartan. PAST CARDIAC HISTORY: Ms. Soriano has been seen in the past for Marfan's syndrome and aortic root dilation. She was last seen on July 05, 2022 PAST MEDICAL HISTORY No date: Aortic root dilation (HCC) Comment: 4.1 cm 04/03/2020: Cervical radiculopathy 04/03/2020: Cervical spondylosis without myelopathy 10/31/2020: Chronic mixed headache syndrome No date: Family history of Marfan syndrome No date: H/O alopecia areata 01/20/2005: LIPOMA OTHER SKIN & SUBCUTANEOUS(Left back) 2007: Major depressive disorder, single episode, mild (HCC) No date: Marfan's syndrome Comment: Lens dislocation and aortic root dilation PAST SURGICAL HISTORY 05/15/1992: CATARACT SURGERY, COMPLEX; Right 03/24/2001: CLEAR LENSECTOMY; Left Comment: Left Lensectomy and anterior Chamber IOL Placement- Performed by Dr. Roberto Lucero 09/19/2013: CLEAR LENSECTOMY; Right Comment: Lensectomy with Anterior Chamber IOL Placement- Performed by Dr. Jomar Lucero 01/16/2019: COLONOSCOPY SCREENING Comment: [facility]. Negative. Repeat 10 years. 01/27/2007: EXCISION TUMOR SOFT TISSUE BACK/FLANK SUBQ <3CM Comment: left scapular 01/10/2015: FNA WITH IMAGING; Left Comment: U/S FNA left breast 3 Oclock 1981: LAPS ABD PRTM&OMENTUM DX W/WO SPEC BR/WA SPX Comment: Laparoscopy 05/16/1992: LASER IRIDOTOMY,IRIDECTOMY, ONE EYE; Right 03/24/2001: LASER IRIDOTOMY,IRIDECTOMY, ONE EYE; Left : RMVL SEC [facility]ANOUS CTRC CORNEO-SCLL SCTJ; Bilateral Comment: Insert lens prosthesis 1996: RPR 1ST INGUN HRNA AGE 5 YRS/> REDUCIBLE Comment: Hernia repair, inguinal SOCIAL HISTORY Social History Tobacco Use Smoking status: Former Current packs/day: 0.00 Average packs/day: 1 pack/day for 31.0 years (31.0 ttl pk-yrs) Types: Cigarettes Start date: 02/29/1980 Quit date: 02/28/2011 Years since quittin.6 Smokeless tobacco: Never Vaping Use Vaping status: Never Used Substance Use Topics Alcohol use: No Drug use: No FAMILY HISTORY Problem Relation Age of Onset Heart Mother Aortic disection (Marfan's syndrome) Lipids Mother other (Marfans) Mother Heart Father CAD and Heart failure Lipids Father Hypertension Father Heart Sister Cataract Sister Detached Retina Sister Cataract Sister Cataract Sister Blindness Sister other (Marfan's ) Sister Cataract Brother other (Aortic dissection) Brother Cataract Brother other (Aortic aneurysms) Brother Breast Cancer Paternal Grandmother BREAST Diabetes Paternal Grandmother ALLERGIES: ALLERGIES Allergen Reactions Baclofen GI Upset Cipro [Ciprofloxaci* Hives, Swelling Gabapentin Intolerance Macrobid [Nitrofura* Hives, Swelling Sulfa (Sulfonamide * Hives, Swelling Tramadol Other: See Comments when taken with Baclofen MEDICATIONS: omeprazole (PRILOSEC) 20 mg capsule Take 1 capsule by mouth daily before breakfast. 1/2 hr before meal. mupirocin (BACTROBAN) 2 % ointment Apply to affected area three times daily. Treat for 10 days or as directed. Apply intranasal calcium Carbonate 300 mg, 750mg, (TUMS) 300 mg (750 mg) chewable tablet Take by mouth as needed. vitamin B complex (B COMPLEX 1 ORAL) Take 1 capsule by mouth every Tuesday and Tuesday. cholecalciferol, vitamin D3, (VITAMIN D3 ORAL) Take 10,000 Units by mouth. Twice a week calcium carb/D3/magnesium/zinc (CALCIUM CARB-D3-MAG OX-ZINC OX ORAL) Take by mouth. 1 capsule three times a week Ascorbic Acid (VITAMIN C) 1,000 mg tablet Take 2,000 mg by mouth. Three times a week Zinc Acetate, Oral, 50 mg (zinc) cap Take 1 capsule by mouth. Three times a week lysine 500 mg tab Take 500 mg by mouth as needed. aspirin, enteric coated (ADULT LOW DOSE ASPIRIN) 81 mg EC tablet Take 1 tablet by mouth once daily. losartan (COZAAR) 100 mg tablet Take 1 tablet by mouth once daily. atenolol (TENORMIN) 25 mg tablet Take 1 tablet by mouth once daily. DULoxetine (CYMBALTA) 20 mg capsule Take 1 capsule by mouth once daily. (Patient not taking: Reported on 10/19/2023) tiZANidine (ZANAFLEX) 2 mg tablet Take 1-2 tablets by mouth every 6 hours as needed. (Patient not taking: Reported on 10/19/2023) REVIEW OF SYSTEMS: See HPI. The reminder of the review of systems is negative. PHYSICAL EXAMINATION: BP 126/79 Pulse 85 Ht 172.7 cm (5' 8) Wt 93 kg (205 lb) LMP 07/27/2023 (Approximate) SpO2 97% BMI 31.17 kg/m General: Well appearing, in no acute distress. Neck: No jugular venous distention, no carotid bruits, carotids have a normal upstroke, no palpable thyromegaly. Lungs: Clear to auscultation bilaterally, no wheezing or rhonchi. Heart: Regular rhythm, PMI not displaced, S1, S2 normal, no S3, no S4, no heaves, no rub and no murmur. Abdomen: Soft, nontender, bowel sounds normal, no palpable organomegaly, no bruits. Extremities: No peripheral edema . Grade 2/4 distal pulses bilaterally. Neuro: Oriented to person, place and time, alert, cooperative, gait coordinated. CARDIOVASCULAR MEDICINE TESTING: Electrocardiogram: July 05, 2022 Diagnosis: SINUS BRADYCARDIA OTHERWISE NORMAL ECG Echocardiogram: July 05, 2022 CONCLUSIONS: - Exam indication: Marfan Syndrome - The left ventricle is normal in size. Left ventricular systolic function is normal. EF = 58 5% (2D biplane) Normal left ventricular diastolic function. - The right ventricle is normal in size. Right ventricular systolic function is normal. - The visualized aorta is dilated with a maximal dimension of 4.2 cm. (root) - Mild MR. - Exam was compared with the prior CC echocardiographic exam performed on 06/20/2020, similar findings. Stress electrocardiogram: Conclusion: Normal with exception due to ST depression Comments: .5 mm upsloping depression V5 noted at peak exercise. Pt asymptomatic throughout test. Resolved < 1 minute in recovery. Stress echocardiogram: CONCLUSIONS: - Exam indication: Marfan's syndrome, CP - The exercise stress echo was negative for ischemia at 90 % of MPHR (7.3 METS). - The left ventricle is normal in size. Left ventricular systolic function is normal. EF = 60 5% (2D biplane) Normal left ventricular diastolic function. - The right ventricle is normal in size. Right ventricular systolic function is normal. - The visualized aorta is dilated with a maximal dimension of 4.4 cm. - Exam was compared with the prior CC echocardiographic exam performed on 07/05/2022. Aortic root measurement is 4.4 cm today, likely relates to better visualization of the aorta. CTA chest (gated): IMPRESSION: AORTIC VALVE: appears trileaflet. No leaflet calcification. STABLE ECTASIA/MILD DILATION AORTIC ROOT: 4.4 x 4.2 cm CHEST: Chest wall anatomy: mild pectus excavatum. - again seen are enlarged bilateral axillary lymph nodes, stable since 2013. Clinical correlation is recommended I have personally reviewed the Echocardiogram. IMPRESSION: Ms. Nina Soriano (Massaro) is a 57 year old female with Marfan syndrome who presents for annual followup evaluation. Since her last visit she's been stable overall and she is currently grieving the of her . Her current symptoms are not cardiac related and I recommended to continue to follow up with PCP. I have reviewed the results of the stress echocardiogram and CTA chest (gated) done today with the patient. Stress echocardiogram showed no evidence of coronary ischemia with good functional capacity with stable mild aortic root dilation (4.4 cm) and this is relatively stable compared to CTA of the chest done today as well as to CT in 2013 and cardiac MRI in 2014. The visualized coronary arteries appear normal with no obvious atherosclerotic changes. I reassured the patient about these results and recommended to continue her current medical management with atenolol, losartan and aspirin and to monitor her symptoms and to call my office if she does not have improvement in symptoms. She was again advised to continue with exercise (70-75% of the maximum predicted heart rate) and also follow weight lifting limitations of less than 50 pounds. Answered all questions in detail. PLAN AND RECOMMENDATIONS: Medical therapy with atenolol and losartan for history of Marfan's syndrome and mild aortic root dilation. Followup evaluation in two years with ECG and Echocardiogram. I have asked Ms. Soriano to call my office with questions about her health. True Mayers MD CONTACT INFORMATION: True Mayers M.D., F.A.C.CAnup Duran Department of Cardiovascular Medicine [facility] [place] [facility] Desk [address] [place] [address] Office - [phone] extension [phone] Office E-mail: Appointments: [phone] -[phone] extension [phone] documented in this encounter [facility] 10-19-2023 History of Present illness Narrative Radiology Service Progress Note DATE OF SERVICE: October 19, 2023 TIME: 7:31 AM PATIENT WEIGHT: 205 LBS PATIENT IDENTITY VERIFICATION COMPLETED USING TWO (2) STANDARD IDENTIFIERS: Name and Date of confirmed by patient verbally and Name and Date of confirmed by identification band. FALL SCREENING: Has the patient had 2 falls in the last year or 1 fall with injury or currently using an Ambulatory Assistive Device (Walker, Cane, Wheelchair, Crutches, etc.)? No PATIENT GENDER DATA: Female. status: : No status: NO. ALLERGIES: Reviewed and unchanged CONTRAST ALLERGY: No EXAM: CT -CONTRAST INDUCED NEPHROPATHY RISK FACTORS: Not applicable CREATININE: Creatinine Date Value Ref Range Status 07/06/2023 0.64 0.58 - 0.96 mg/dL Final 12/13/2022 0.66 0.58 - 0.96 mg/dL Final 04/02/2022 0.64 0.58 - 0.96 mg/dL Final Estimated Glomerular Filtration Rate Date Value Ref Range Status 07/06/2023 104 >=60 mL/min/1.73m Final Comment: Estimated Glomerular Filtration Rate (eGFR) is calculated using the 2020 CKD-EPI creatinine equation. This equation utilizes serum creatinine, sex, and age as parameters. The creatinine assay has traceable calibration to isotope dilution-mass spectrometry. Refer to KDIGO guidelines for clinical interpretation. In patients with unstable renal function, e.g. those with acute kidney injury, the eGFR may not accurately reflect actual GFR. eGFR- Date Value Ref Range Status 04/01/2021 >60 Final P.O.C.T. RESULTS: N/A October 19, 2023 TREATMENT: No Hydration needed. IV SITE: Ambulatory: A peripheral IV was started in the Left antecubital site with a Angio cath: 20 gauge. and A Saline lock was inserted per protocol IV SITE APPEARANCE: Clean,Dry and Intact SIGNATURE: Philly Swanson RN PATIENT NAME: Itzel Soriano DATE: October 19, 2023 TIME: 7:31 AM Radiology Service Progress Note PATIENT NAME: Itzel Soriano DATE OF SERVICE: October 19, 2023 TIME: 7:59 AM PATIENT IDENTITY VERIFICATION COMPLETED USING TWO (2) IDENTIFIERS: Name and Date of confirmed by patient verbally and Name and Date of confirmed by identification band. FALL SCREENING: Has the patient had 2 falls in the last year or 1 fall with injury or currently using an Ambulatory Assistive Device (Walker, Cane, Wheelchair, Crutches, etc.)? No PATIENT GENDER DATA: Female. status: : No status: NO. PATIENT RELEVANT IMPLANT DATA REVIEWED: Yes PATIENT PRESENTS WITH AN IMPLANTABLE OR ATTACHED DISCHARGE SPECIALIST: No RADIOLOGY DEPARTMENT: CT; Exam(s) Completed: Cardiac PERIPHERAL IV DATA: Site assessment: Clean,Dry and Intact, Site disposition Discontinued SIGNED BY: RT Bandar(R) October 19, 2023 7:59 AM documented in this encounter [facility] 10-14-2023 History of Present illness Narrative Program_ID:[id number] Access Code: [email or web address] URL: [email or web address] Date: 10-14-2023 Prepared By: Brianna Horta Program Notes Exercises - Supine Cervical Retraction with Towel - 2-3 x daily - 7 x weekly - 4 sets - 10 reps - Seated Scapular Retraction - 2-3 x daily - 7 x weekly - 3 sets - 20 reps Patient Education - cc Posture Training Why Does My Neck Hurt - Acute Neck Pain Handout Images from the original note were not included. Episode Visit Count: 1 Therapist That Will Accept/Oversee The Plan Of Care: Brianna Horta Start of Care Date: 10/14/23 Onset Date: 02/12/23 Plan of Care Certification Date: 10/14/23 Next Certification Due Date: 11/25/23 Patient Identified by Name and Date of : Yes REHABILITATION AND SPORTS THERAPY PHYSICAL THERAPY EVALUATION PLAN OF CARE: Assessment: Itzel Soriano presents with diagnosis of cervical radiculopathy that interferes with driving (turning the head, reading) . She presents with impairments in ADL's, flexibility, independence in exercise, joint mobility, overall function, patient reported outcome measures, posture, range of motion, strength, symptom management, and tissue tenderness. PROMIS (Patient-Reported Outcomes Measurement Information System) scores were reviewed and identified as a rehabilitation concern. Prognosis for therapy is Fair due to: Prognosis may be improved by good support system/ coping skills, current objective clinical presentation, good overall health status. She will benefit from skilled therapy services to meet the goals established for this plan of care as noted below. Goals for Episode of Care: created on 10/14/23 through 11/25/23 Independent in a Home Exercise Program. Patient will decrease pain to 1-2/10 with functional activities to allow patient to improve standing tolerance for ADLs. Restore pain free cervical ROM to minimal to no limitation rotation L and R to allow for ADLs. Drive with no aggravation of pain/symptoms. Sleep throughout the night without pain/symptoms. Sit 2-3 hours without increased pain/symptoms to allow for reading. Patient Goals: return to regular exercise Planned Interventions, Frequency, and Duration: Current Frequency: 1x/week Duration: 6 weeks Total Number of Visits Planned: 6 Planned Treatment Interventions: Therapeutic exercise (00799), Neuromuscular re-education (54871), Manual therapy (10653), Therapeutic activities (29258), Self-residential management (62238) PLAN FOR NEXT VISIT: Pt. wants more resistance exercises - progress scapular strengthenig Patient demonstrates good understanding of plan of care and treatment. The above goals and plan of care were discussed and agreed upon by patient/family. SUBJECTIVE: for chronic neck pain. Pt. mentions hx of radiulcar symptoms and currently having spasms/weakness in the R UE intermittently. Pt. mentions recent loss of her about 1 mo. ago. She has had PT in the past but admits limited follow through. Occasionally gets a massage. Hx of marfan's syndrome. Admits that she is not an active person and likes to read. Expresses much desire to become fit and active again. Patient Goals: return to regular exercise Functional Limitations: driving (turning the head, reading) Prior Level of Function: Independent without limitations Relevant History Right or Left Handed: Right Intake Information: Prescription present Previous Treatment: Physical Therapy (self traction, head hanging over EOB) Falls Interview: No positive findings with falls interview Red Flags Vertebral Fracture Red Flags: Female Vertebral Fracture Clinical Reasoning: Proceed with caution due to the above (1-2) risk factors Cancer Red Flags: Age >50 or <20 Cancer Clinical Reasoning: Proceed with caution Infection Clinical Reasoning: No identified risk factors. Cervical Arterial Dysfunction: Dizziness (in the shower) Cervical Arterial Dysfunction Clinical Reasoning: No identified risk factors Cervical Myelopathy: Age > 45 yo Cervical Myelopathy Diagnostic Rule: Proceed with caution Red Flags - Cervical Cancer Red Flags: Age >50 or <20 Cancer Clinical Reasoning: Proceed with caution Infection Clinical Reasoning: No identified risk factors. Cervical Arterial Dysfunction: Dizziness (in the shower) Cervical Arterial Dysfunction Clinical Reasoning: No identified risk factors Cervical Myelopathy: Age > 45 yo Cervical Myelopathy Diagnostic Rule: Proceed with caution Spine History Symptoms Location at Onset: Neck Symptoms Since Onset: Worsening Pain is Worse Always: Turning, Prolonged positions, Bending, Driving Pain is Better Always: Lying (head over the EOB) Sleeping Position: (does not use a pillow) Pain: Pain Pain Level: 1 Pain Location: Neck - Right Description: Aching, Stiffness Frequency: With movement Post Treatment Pain Post Treatment Pain Location: Neck PROMIS Scales 10/12/2023 02/23/2021 Higher is Better Phys Func - Score 38 (moderate dysfunction) 43 (mild dysfunction) Phys Func - Percentile 12 24 Self-Eff Symptom - Score 36 (Low) 35 (Low) Self-Eff Symptom - Percentile 8 7 T-scores: mean of general population = 50. 5 points is clinically meaningfully difference Percentiles provide an indication of how the patient's score ranks in relation to the general population. Higher percentile rankings indicate better function/quality of life. 50th percentile is the average of the general population and indicates half of respondents had a worse score. OBJECTIVE MEASURES WITH LEVEL OF FUNCTION: Posture / Alignment Posture: Forward head, Increased thoracic kyphosis Sitting Posture: Increased thoracic kyphosis, Decreased lumbar lordosis Spine Observations R Cervical Spine Palpation Tenderness: Upper trapezius, Levator scapulae, Scalenes, Sternocleidomastoid, Paraspinals, Suboccipitals L Cervical Spine Palpation Tenderness: Upper trapezius, Levator scapulae, Scalenes, Sternocleidomastoid, Paraspinals, Suboccipitals Sensation - Cervical Spine Cervical Spine Sensation: Grossly Intact Cervical Spine ROM Cervical ROM : Limitation AROM Cervical Retraction AROM: Major limitation, Produces Cervical Extension AROM: Minimal limitation (upper cervical spine hinge observed) Cervical Rotation Right AROM: Moderate limitation, Produces Cervical Rotation Left AROM: Moderate limitation, Produces Repeated Test Movements - Cervical Cervical RET in lying - Symptoms During: increases, end range pain, pain during movement Cervical RET in lying - Symptoms After: increase ROM (feels looser) Thoracic Spine AROM Thoracic Extension: Major limitation Spine Joint Mobility Spine Joint Mobility : Cervical/Thoracic Joint Mobility - C5: Hypomobile Joint Mobility - C6: Hypomobile Joint Mobility - C7: Hypomobile Joint Mobility - T1: Hypomobile Joint Mobility - T2: Hypomobile Education: Education Learning Preferences: Demonstration, Printed Materials, Explanation, Performance Barriers: Emotions Learning/educational needs: Home exercise program, Plan of Care, Posture Education Provided: Yes, see treatment interventions for education provided Education Provided To: Patient Education Mode/Type: Demonstration, Explanation/Discussion, Literature/Printed Materials, Performance Response to Education/Teach Back: States/Identifies, Return Demonstration TREATMENT: PT Treatment Interventions: Therapeutic Exercise, Self-Long Term Management Evaluation Therapeutic Exercise: 1: *Access Code: [email or web address] URL: [email or web address] Date: 10/14/2023 Prepared by: Brianna Mijares'Pawel Exercises - Supine Cervical Retraction with Towel - 2-3 x daily - 7 x weekly - 4 sets - 10 reps - 3 hold - Seated Scapular Retraction - 2-3 x daily - 7 x weekly - 3 sets - 20 reps Patient Education - cc Posture Training Why Does My Neck Hurt - Acute Neck Pain Handout Skilled Intervention: Patient was educated in proper exercise technique and purpose for exercises. Skilled judgment was used in selection of appropriate interventions. Provided written instruction for home exercise program to facilitate proper performance and compliance. Correct performance of therapeutic exercises was facilitated with verbal, visual, and tactile cuing. Educated patient on rationale for performing exercises in regards to decreasing fatigue , increase ease of ADL, and ROM and function . Patient education as noted. Self-Long Term Management: 1: posture 2: discussed neck mechanics, lower cervical segment mobility vs. upper cervical mobility 3: discussed limited thoracic spine mobility and how it affects lower cervical spine Skilled Intervention: Skilled judgment in the selection of proper modification for activity of daily living/home management based on clinical presentation, deficits, and needs. Provided written instruction for activities of daily living techniques to facilitate proper performance and compliance. Reviewed patient specific diagnosis in relation to activities of daily living/home management. Activity progression based on professional judgement. Moderate verbal cues for maintaining neutral spine alignment. Provided written instruction for home program to facilitate proper performance and compliance. Correct performance of home program was facilitated with verbal, visual, and tactile cueing. Billing * Evaluation Low Complexity: 1 Unit Therapeutic Exercise Treatment Minutes: 15 Self-Care/Home Management Treatment Minutes: 10 Skilled Treatment Time Minutes (timed and untimed codes): 45 Total Session Time (minutes): 45 Session Start Time : 739 Session Stop Time : 824 Brianna Horta PT documented in this encounter [facility] 10-12-2023 History of Present illness Narrative Assessment and Plan 1. Vitreous floaters of both eyes -long-standing, with occasional flashes that were recently noted -no evidence of Retinal detachment On examination today 2. Marfan's syndrome -with strong family history And consistent symptoms but no genetic diagnosis 3. Glaucoma suspect of both eyes -with history of elevated intraocular pressure both eyes, within normal limits today -no evidence of disc damage 4. Pseudophakia -stable Anterior chamber intraocular lens (ACIOL) both eyes, s/p lensectomy right eye 2013, left eye 2001 with capsular bag remnant left eye Plan: -Retina precautions reviewed. Return to clinic as soon as possible if increased floaters, flashes, or shadows. -explained increased risk in setting of Marfan and Anterior chamber intraocular lenses (ACIOL), and importance of vigilance -artificial tears twice a day both eyes -follow-up 12 months with dilated fundus exam both eyes (in [place]), sooner as needed I have confirmed and edited as necessary the relevant ophthalmic history, ROS, and the neuro exam findings as obtained by others. I have seen and examined Nina Soriano. I have discussed the case and the management of this patient's care with the Resident/Fellow, if applicable. I also have reviewed and agree with the assessment and plan as stated above and agree with all of its relevant components. Sherron Lancaster MD documented in this encounter [facility] 08-15-2023 History of Present illness Narrative Radiology Service Progress Note PATIENT NAME: Itzel Soriano DATE OF SERVICE: August 15, 2023 TIME: 9:37 AM PATIENT IDENTITY VERIFICATION COMPLETED USING TWO (2) IDENTIFIERS: Name and Date of confirmed by patient verbally. FALL SCREENING: Has the patient had 2 falls in the last year or 1 fall with injury or currently using an Ambulatory Assistive Device (Walker, Cane, Wheelchair, Crutches, etc.)? No PATIENT GENDER DATA: Female. status: : No status: NO. PATIENT RELEVANT IMPLANT DATA REVIEWED: Yes PATIENT PRESENTS WITH AN IMPLANTABLE OR ATTACHED DISCHARGE SPECIALIST: No RADIOLOGY DEPARTMENT: General X-ray: Exam(s) Completed: Spine X-Ray(s): Cervical AP / LAT / OBL PERIPHERAL IV DATA: Not applicable SIGNED BY: RT Stuart(R) August 15, 2023 9:37 AM documented in this encounter [facility] 08-15-2023 Instructions Nohemy Davis APRN.NEEDLE LOOM WEAVER - 08/15/2023 8:45 AM EDT Screening schedule The following prevention plan is recommended: Lung Cancer Screening Never done WHAT YOU CAN DO TO PREVENT FALLS Many falls can be prevented. By making some changes, you can lower your chances of falling. Four things YOU can do to prevent falls for you* and your caregiver 1. Begin a regular exercise program Exercise is one of the most important ways to lower your chances of falling. It makes you stronger and helps you feel better. Exercises that improve balance and coordination (like Steven Chi) are the most helpful. Lack of exercise leads to weakness and increases your chances of falling. Ask your doctor or health care provider about the best type of exercise program for you. 2. Have your health care provider review your medicines Have your doctor or pharmacist review all the medicines you take, even [id number] medicines. As you get older, the way medicines work in your body can change. Some medicines, or combinations of medicines, can make you sleepy or dizzy and can cause you to fall. 3. Have your vision checked Have your eyes checked by an eye doctor at least once a year. You may be wearing the wrong glasses or have a condition like glaucoma or cataracts that limits your vision. Poor vision can increase your chances of falling. 4. Make your home safer About half of all falls happen at home. To make your home safer: Remove things you can trip over (like papers, books, clothes, and shoes) from stairs and places where you walk. Remove small throw rugs or use double-sided tape to keep the rugs from slipping. Keep items you use often in cabinets you can reach easily without using a step stool. Have grab bars put in next to your toilet and in the tub or shower. Use non-slip mats in the bathtub and on shower floors. Improve the lighting in your home. As you get older, you need brighter lights to see well. Hang light-weight curtains or shades to reduce glare. Have handrails and lights put in on all staircases. Wear shoes both inside and outside the house. Avoid going barefoot or wearing slippers. For more information, contact: Centers for Disease Control and Prevention www.cdc.gov/injury * This information may not apply if you have certain medical conditions. documented in this encounter [facility] 08-15-2023 History of Present illness Narrative SUBJECTIVE Itzel Soriano is a 57 year old female here today for a check up on her medical problems. Chief Complaint Patient presents with: Wellness HPI Itzel Soriano is a 57 year old female. Here today with concerns. Will post-pone wellness. Reviewed labs today. A lot of stress, in the hospital. Some neck stiffness, prior stenosis diagnosis. Some headaches, feels like a lot of pressure. Sensitive to smells. Some increased depression lately. The 10-year ASCVD risk score (Luan WRIGHT, et al., 2019) is: 1.9% Values used to calculate the score: Age: 57 years Sex: Female Is Non- : No Diabetic: No Tobacco smoker: No Systolic Blood Pressure: 112 mmHg Is BP treated: No HDL Cholesterol: 49 mg/dL Total Cholesterol: 205 mg/dL Her medications were reviewed today and her list is now up to date. Medications Current Outpatient Medications Medication Sig DULoxetine (CYMBALTA) 20 mg capsule Take 1 capsule by mouth once daily. tiZANidine (ZANAFLEX) 2 mg tablet Take 1-2 tablets by mouth every 6 hours as needed. losartan (COZAAR) 100 mg tablet Take 1 tablet by mouth once daily. atenolol (TENORMIN) 25 mg tablet Take 1 tablet by mouth once daily. omeprazole (PRILOSEC) 20 mg capsule Take 1 capsule by mouth daily before breakfast. 1/2 hr before meal. mupirocin (BACTROBAN) 2 % ointment Apply to affected area three times daily. Treat for 10 days or as directed. Apply intranasal calcium Carbonate 300 mg, 750mg, (TUMS) 300 mg (750 mg) chewable tablet Take by mouth as needed. vitamin B complex (B COMPLEX 1 ORAL) Take 1 capsule by mouth every Tuesday and Tuesday. cholecalciferol, vitamin D3, (VITAMIN D3 ORAL) Take 10,000 Units by mouth. Twice a week calcium carb/D3/magnesium/zinc (CALCIUM CARB-D3-MAG OX-ZINC OX ORAL) Take by mouth. 1 capsule three times a week Ascorbic Acid (VITAMIN C) 1,000 mg tablet Take 2,000 mg by mouth. Three times a week Zinc Acetate, Oral, 50 mg (zinc) cap Take 1 capsule by mouth. Three times a week lysine 500 mg tab Take 500 mg by mouth as needed. aspirin, enteric coated (ADULT LOW DOSE ASPIRIN) 81 mg EC tablet Take 1 tablet by mouth once daily. No current facility-administered medications for this visit. ALLERGIES Allergen Reactions Baclofen GI Upset Cipro [Ciprofloxaci* Hives, Swelling Gabapentin Intolerance Macrobid [Nitrofura* Hives, Swelling Sulfa (Sulfonamide * Hives, Swelling Tramadol Other: See Comments when taken with Baclofen ACTIVE PROBLEM LIST Moderate Major Depression (Hcc) - 09/12/2022 Adnexal Mass - 04/20/2021 Liver Cyst - 04/20/2021 Depression With Anxiety - 04/08/2021 Chronic Mixed Headache Syndrome - 10/31/2020 Obesity, Class I, Bmi 30-34.9 - 10/31/2020 Anxiety - 10/31/2020 Cervical Radiculopathy - 04/03/2020 Family History of Marfan Syndrome Aortic Root Dilation (Hcc) Comment: 4.1 cm Marfan's Syndrome Comment: Lens dislocation and aortic root dilation Social History Tobacco Use Smoking status: Former Packs/day: 1.00 Years: 30.00 Additional pack years: 0.00 Total pack years: 30.00 Types: Cigarettes Start date: 02/29/1980 Quit date: 02/28/2011 Years since quittin.4 Smokeless tobacco: Never Vaping Use Vaping Use: Never used Substance Use Topics Alcohol use: No Drug use: No Review of Systems Constitutional: Negative. Respiratory: Negative. Cardiovascular: Negative. Musculoskeletal: Positive for neck pain. OBJECTIVE BP 112/70 Pulse 55 Temp 98.4 Resp 12 Ht 5' 7 (1.70m) Wt 209 lb (94.8kg) SpO2 97% LMP 07/27/2023 BMI 32.73 kg/(m^2). Physical Exam Vitals and nursing note reviewed. Constitutional: General: She is awake. She is not in acute distress. Appearance: Normal appearance. She is well-developed and well-groomed. She is not ill-appearing, toxic-appearing or diaphoretic. HENT: Head: Normocephalic. Right Ear: External ear normal. Left Ear: External ear normal. Nose: Nose normal. Eyes: General: Vision grossly intact. Conjunctiva/sclera: Conjunctivae normal. Pupils: Pupils are equal, round, and reactive to light. Neck: Vascular: No JVD. Trachea: Trachea normal. Cardiovascular: Rate and Rhythm: Normal rate and regular rhythm. Pulses: Normal pulses. Heart sounds: Normal heart sounds. No murmur heard. Pulmonary: Effort: Pulmonary effort is normal. No accessory muscle usage, prolonged expiration or respiratory distress. Breath sounds: Normal breath sounds. Musculoskeletal: Cervical back: Neck supple. Skin: General: Skin is warm and dry. Capillary Refill: Capillary refill takes less than 2 seconds. Neurological: General: No focal deficit present. Mental Status: She is alert and oriented to person, place, and time. Mental status is at baseline. Psychiatric: Attention and Perception: Attention and perception normal. Mood and Affect: Mood and affect normal. Speech: Speech normal. Behavior: Behavior normal. Behavior is cooperative. Thought Content: Thought content normal. Cognition and Memory: Cognition and memory normal. Judgment: Judgment normal. ASSESSMENT/PLAN: 1. Cervical radiculopathy - ICD9: 723.4, ICD10: M54.12 (primary diagnosis) Update imaging, likely will need MRI, start Cymbalta at a low dose, PRN Zanaflex too, start PT. - XR CERV OTHER 4V AP/LAT/OBL - CONSULT TO PHYSICAL THERAPY - DULOXETINE 20 MG CAPSULE,DELAYED RELEASE - TIZANIDINE 2 MG TABLET 2. Cervical disc herniation - ICD9: 722.0, ICD10: M50.20 See #1 - XR CERV OTHER 4V AP/LAT/OBL - DULOXETINE 20 MG CAPSULE,DELAYED RELEASE - DULOXETINE 20 MG CAPSULE,DELAYED RELEASE 3. Anxiety - ICD9: 300.00, ICD10: F41.9 A lot of stress right now with her 's health, worsening in anxiety and depression, start the low dose of Cymbalta previously prescribed. - DULOXETINE 20 MG CAPSULE,DELAYED RELEASE 4. Depression with anxiety - ICD9: 300.4, ICD10: F41.8 See #3 - DULOXETINE 20 MG CAPSULE,DELAYED RELEASE 5. Moderate major depression (HCC) - ICD9: 296.22, ICD10: F32.1 See #3 Portions of this note have been entered by ancillary staff. I have reviewed and when necessary edited, so that they are an adequate record of my encounter with this patient Please note that parts of this document were created using voice recognition software and therefore may contain grammatical errors. Patient verbalizes understanding of instructions from today's visit and in agreement with treatment plan. Questions answered. Agrees to call the office if questions, concerns of issues with acute symptoms not improving or if they worsen. See diagnoses and orders for additional plan(s). Allergies and medications were reviewed, list was updated, and refills given if needed. Past medical, surgical, social, and family history reviewed and updated as appropriate. Encouraged proper diet & exercise as well as compliance with taking medications. Age-appropriate health preventative measures were discussed. Return in about 3 months (around 11/15/2023) for Follow up on chronic conditions and medications.. Nohemy Davis APRN-NEEDLE LOOM WEAVER documented in this encounter [facility] 06-28-2023 History of Present illness Narrative POPULATION HEALTH NAVIGATION OUTREACH Action/FYI Patient is on [facility] CURRENT ROSTER Work[employer]enc list for below and needs appointment to address: Lung Cancer Screening No results found for: HBA1C Patient due for: Medicare Annual Wellness Visit last 01/04/23 Spoke to patient. 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 Noted upcoming appointment to address HCC gap closure. Patient also requested to schedule lab for 06/2023. Scheduled 07-05-23 at [place]. No lipid order in system - patient is requesting order to be done at the visit. Sent to PCP to review. Reason for Outreach Care Gap/HCC or Scheduling Wellness Visits Care Gaps due: Medicare Annual Wellness Visit Patient Contacted: Spoke to patient/parent/or legal guardian Patient identified by name and : Yes Care Gap/HCC/Scheduling Wellness actions taken: Patient scheduled/pended labs: Medicare Annual Wellness Visit Specialty Appointment 07/05/2023 in LAB [facility] with [facility] - Obesity, Class I, BMI 30-34.9 [E66.9] , Thyromegaly [E01.0] , Encounter for long-term current use of medication [Z79.899] 08/10/2023 in [facility] with SHERRON LANCASTER 08/15/2023 in [facility] with NOHEMY DAVIS - Medicare Wellness - anytime in calendar year per MMO, AWV due. Please address due care gap and HCC gap closure 05/11/2024 in RADIO [facility] with SCREEN MAMMO [facility] - CARLOS ENRIQUE SCREENING W REUBEN 05/11/2024 in [facility] with [place] - annual HCC related Navigation Signature: Andi Guerin MA June 28, 2023 8:10 AM documented in this encounter [facility] 06-16-2023 Instructions Alysa Guzman Student - 06/16/2023 1:52 PM EDT YOUR RECOVERY After your biopsy you may have: Vaginal bleeding (less than a normal menstrual period) Mild cramping Do NOT put anything in the vagina for 1 week after your endometrial biopsy. This includes: tampons douches and refraining from having sexual intercourse If you have any discomfort, you may take an over the counter pain medication (motrin, advil, ibuprofen, tylenol, etc). If this does not relieve your discomfort, contact the office. It is okay to wear a sanitary pad until the discharge and spotting stops. RISKS Although problems seldom occur with endometrial biopsies, there can be some complications. You may feel faint during and shortly after the procedure as well as have some bleeding after the procedure. There is also a risk of infection after the procedure. These complications are rare and can be easily treated. You should contact you doctor is you have any of the following: Heavy bleeding (more than your normal period) Bleeding with clots Severe abdominal pain Fever (more than 100.4F) Foul smelling vaginal discharge RESULTS We will have the results of your biopsy in 1-2 weeks. If you do not hear the results of your biopsy after 2 weeks, please contact the office for the results. If you have any additional questions or concerns please do not hesitate to contact the office. 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 Itzel Soriano is a 57 year old female who presents for follow up. HPI: Follow up today after having dysmenorrhea, cramping and bloating at time of annual exam. She has changed her diet and feels her symptoms have improved. Her menstrual cycles are regular for her and remain unchanged since menarche. Menorrhagia but menses have always been heavier. Having hot flashes and night sweats. No pelvic pain. OB History T0 L0 SAB0 IAB0 Ectopic0 Multiple0 Live Births0 Quality Rep History LMP: 04/21/2023 (Approximate), Having periods Age at Menarche: Age at First : Age at Menopause: Quality Rep History Comments: Sexual Activity: Yes; Male; Jail female infertility Contraception: No contraception data on record PAST MEDICAL HISTORY Diagnosis Date Aortic root dilation (HCC) 4.1 cm Cervical radiculopathy 04/03/2020 Cervical spondylosis without myelopathy 04/03/2020 Chronic mixed headache syndrome 10/31/2020 Family history of Marfan syndrome H/O alopecia areata LIPOMA OTHER SKIN & SUBCUTANEOUS(Left back) 01/20/2005 Major depressive disorder, single episode, mild (HCC) 2006 Marfan's syndrome Lens dislocation and aortic root dilation PAST SURGICAL HISTORY Procedure Laterality Date CATARACT SURGERY, COMPLEX Right 05/15/1992 CLEAR LENSECTOMY Left 03/24/2001 Left Lensectomy and anterior Chamber IOL Placement- Performed by Dr. Roberto Lucero CLEAR LENSECTOMY Right 09/19/2013 Lensectomy with Anterior Chamber IOL Placement- Performed by Dr. Jomar Lucero COLONOSCOPY SCREENING 01/16/2019 [facility]. Negative. Repeat 10 years. EXCISION TUMOR SOFT TISSUE BACK/FLANK SUBQ <3CM 01/27/2007 left scapular FNA WITH IMAGING Left 01/10/2015 U/S FNA left breast 3 Oclock LAPS ABD PRTM&OMENTUM DX W/WO SPEC BR/WA SPX 1981 Laparoscopy LASER IRIDOTOMY,IRIDECTOMY, ONE EYE Right 05/16/1992 LASER IRIDOTOMY,IRIDECTOMY, ONE EYE Left 03/24/2001 RMVL SEC MEMBRANOUS CTRC CORNEO-SCLL SCTJ Bilateral 99,2013 Insert lens prosthesis RPR 1ST INGUN HRNA AGE 6 YRS/> REDUCIBLE 1997 Hernia repair, inguinal FAMILY HISTORY Problem Relation Age of Onset Heart Mother Aortic disection (Marfan's syndrome) Lipids Mother other (Marfans) Mother Heart Father CAD and Heart failure Lipids Father Hypertension Father Heart Sister Cataract Sister Detached Retina Sister Cataract Sister Cataract Sister Blindness Sister other (Marfan's ) Sister Cataract Brother other (Aortic dissection) Brother Cataract Brother other (Aortic aneurysms) Brother Breast Cancer Paternal Grandmother BREAST Diabetes Paternal Grandmother Social History Tobacco Use Smoking status: Former Packs/day: 1.00 Years: 30.00 Additional pack years: 0.00 Total pack years: 30.00 Types: Cigarettes Start date: 02/29/1980 Quit date: 02/28/2011 Years since quittin.3 Smokeless tobacco: Never Vaping Use Vaping Use: Never used Substance Use Topics Alcohol use: No Drug use: No Current Outpatient Medications Medication Sig losartan (COZAAR) 100 mg tablet Take 1 tablet by mouth once daily. atenolol (TENORMIN) 25 mg tablet Take 1 tablet by mouth once daily. omeprazole (PRILOSEC) 20 mg capsule Take 1 capsule by mouth daily before breakfast. 1/2 hr before meal. mupirocin (BACTROBAN) 2 % ointment Apply to affected area three times daily. Treat for 10 days or as directed. Apply intranasal calcium Carbonate 300 mg, 750mg, (TUMS) 300 mg (750 mg) chewable tablet Take by mouth as needed. vitamin B complex (B COMPLEX 1 ORAL) Take 1 capsule by mouth every Tuesday and Tuesday. cholecalciferol, vitamin D3, (VITAMIN D3 ORAL) Take 10,000 Units by mouth. Twice a week calcium carb/D3/magnesium/zinc (CALCIUM CARB-D3-MAG OX-ZINC OX ORAL) Take by mouth. 1 capsule three times a week Ascorbic Acid (VITAMIN C) 1,000 mg tablet Take 2,000 mg by mouth. Three times a week Zinc Acetate, Oral, 50 mg (zinc) cap Take 1 capsule by mouth. Three times a week lysine 500 mg tab Take 500 mg by mouth as needed. aspirin, enteric coated (ADULT LOW DOSE ASPIRIN) 81 mg EC tablet Take 1 tablet by mouth once daily. DULoxetine (CYMBALTA) 20 mg capsule Take 1 capsule by mouth once daily. (Patient not taking: Reported on 01/04/2023) No current facility-administered medications for this visit. Allergies As of Date: 06/16/2023 Allergen Noted Reaction BACLOFEN 11/30/2019 GI Upset CIPRO [CIPROFLOXACIN] 01/03/2007 Hives and Swelling GABAPENTIN 11/30/2019 Intolerance MACROBID [NITROFURANTOIN MONOHYD/*01/03/2007 Hives and Swelling SULFA (SULFONAMIDE ANTIBIOTICS) 01/20/2005 Hives and Swelling TRAMADOL 12/13/2019 Other: See Comments Fully Assessed 06/16/2023 REVIEW OF SYSTEMS Expanded ROS: N/A Allergies and current medication updated:Yes EXAM: BP 122/78 Wt 210 lb (95.3kg) LMP 04/21/2023 GENERAL: pleasant, female in no apparent distress HEENT: Normocephalic and atraumatic NECK: full range of motion DERMATOLOGY: Normal, without lesions, non-icteric, and CHEST: Normal inspiratory effort NEURO: exam grossly non-focal and alert and oriented x3,exam grossly non-focal EXTREMITIES: normal ASSESSMENT AND PLAN: Encounter Diagnosis ICD-10-CM 1. Menorrhagia with regular cycle N92.0 2. Cyst of ovary, unspecified laterality N83.209 PELVIC US I Reviewed pelvic ultrasound images with patient. Discussed endometrial thickness is not clearly determined in a pre menopausal woman. Her menstrual cycles remain regular and unchanged for her. She is not interested in endometrial sampling at this time, and will call with any change in bleeding. Ovarian cyst: Low risk lesion. Schedule follow up ultrasound in 6 months, and sooner if change in symptoms. Her symptoms have improved since change in diet. Konstantin River DO Medical Decision Making: Problems: Low: Stable chronic illness Moderate: New problem with uncertain prognosis Data: Unique test(s) ordered: 1 Medical Decision Making Level: 2 - Straightforward documented in this encounter [facility] 05-23-2023 Miscellaneous Notes Patient notified and voiced understanding. EMB scheduled. Mendy Muñoz RN Left message for patient to call office. ANDI JENSEN RN ----- Message from Konstantin River MD sent at 05/19/2023 2:07 PM EDT ----- Notify pt of thickened endometrium. Recommend EMB to further evaluate and please assist in scheduling There is a small, most likely benign left ovarian cyst present. Recommend follow up US in 6 months. Can discuss this further when she comes in for EMB. Will need 30 min documented in this encounter [facility] 05-16-2023 History of Present illness Narrative Radiology Service Progress Note PATIENT NAME: Itzel Soriano DATE OF SERVICE: May 16, 2023 TIME: 1:57 PM PATIENT IDENTITY VERIFICATION COMPLETED USING TWO (2) IDENTIFIERS: Name and Date of confirmed by patient verbally. FALL SCREENING: Has the patient had 2 falls in the last year or 1 fall with injury or currently using an Ambulatory Assistive Device (Walker, Cane, Wheelchair, Crutches, etc.)? No PATIENT GENDER DATA: Female. status: : No status: NO. PATIENT RELEVANT IMPLANT DATA REVIEWED: Not Applicable PATIENT PRESENTS WITH AN IMPLANTABLE OR ATTACHED DISCHARGE SPECIALIST: No RADIOLOGY DEPARTMENT: Ultrasound PERIPHERAL IV DATA: Not applicable SIGNED BY: Opal Montes RDMS May 16, 2023 1:57 PM documented in this encounter [facility] 05-05-2023 Instructions Konstantin River MD - 05/05/2023 3:54 PM EST COPING WITH THE SYMPTOMS OF MENOPAUSE Not all women experience menopause in the same way. For some, menopause can bring on an array of uncomfortable symptoms. Others may experience few discomforts and are happy to no longer have periods. Relieving hot flashes Identify and avoid your hot flash triggers. Common triggers include stress, caffeine, alcohol, spicy foods, tight clothing, heat and cigarette smoke. Keep the bedroom cool. Use fans during the day. Wear light layers of clothing. Try deep, slow abdominal breathing (6 to 8 breaths per minute). Practice deep breathing for 15 minutes in the morning, 15 minutes in the evening and at the onset of hot flashes. Exercise daily. Walking, swimming, dancing and bicycling are good choices. Try taking vitamin E supplements (400 international units [IUs] twice a day) and ibuprofen (Motrin, Advil, Nuprin) at bedtime. Note: Do not take ibuprofen and aspirin together. Add soy protein (40 to 60 mg) to your diet daily. Relieving insomnia Keep the bedroom cool to prevent night sweats. Avoid using sleeping pills. Exercise daily. Avoid caffeine and alcohol at night. Take a warm bath or shower at bedtime. Eat cereal and milk products at bedtime or during the night. (Avoid products that contain caffeine.) Coping with mood swings, fears, and depression Find a self-calming skill to practice, such as yoga, meditation or slow, deep breathing. Avoid tranquilizers, if possible. Engage in a creative outlet that fosters a sense of achievement. Stay connected with your family and community; nurture your friendships. Relieving painful intercourse Try using a vaginal water-based moisturizing lotion or lubricant during intercourse. Preventing osteoporosis Calcium can slow bone loss and may decrease fractures. Consume 1,500 milligrams of calcium a day. Good sources of calcium are calcium supplements such as Tums; fruit juices and breads; low-fat dairy products; green leafy vegetables such as broccoli, kale and spinach greens; almonds; and soy milk. Vitamin D aids in the absorption of calcium and stimulates bone formation. Consume 400 to 800 IUs of vitamin D a day. Eat foods low in sodium, low in animal protein and low in caffeine. Bone mass is built before menopause as a result of exercise, diet, and genetics. Exercises that increase bone mass make the muscles work against gravity. Walking and muscle-building exercises may reduce bone loss and fractures and improve balance. Preventing heart disease Eat a variety of vegetables, fruits, and whole grains, including soy food. Limit salt, cholesterol, and fat, especially animal fat. Get at least 30 minutes of moderate exercise over the course of each day. Many activities increase the heart rate, including gardening, walking, dancing, and aerobic exercises. The activity period does not need to be continuous. Don't smoke. Maintain a healthy weight. Follow your health care provider's instructions for controlling high blood pressure, diabetes, and cholesterol. Take a vitamin supplement. Choose one that contains antioxidants, including vitamins E and C. Take one baby aspirin daily, if approved by your physician. Note: Do not take ibuprofen and aspirin together. Copyright 4401-2204 [facility]. All rights reserved This information is provided by the [facility] and is not intended to replace the medical advice of your doctor or health care provider. Please consult your health care provider for advice about a specific medical condition. For additional written health information, please contact the Health Information Center at the [facility] or toll-free extension [phone]. This document was last reviewed on: 2002 index#5049 Non-Hormonal Ways to [place] with Hot Flashes and Menopause Hormone therapy is the most effective therapy for hot flashes. It is also the only FDA approved method to treat hot flashes. However, other non-hormonal options are available for women who are suffering from symptoms, but are not yet ready to consider hormone therapy. Some women are not appropriate candidates for hormone therapy, such as those have been recently treated for breast cancer, ovarian cancer, or endometrial/uterine cancer. It is important to remember that when used appropriately, hormone therapy can be a safe and effective option for many women. Here we will review non-hormonal treatment options for women. Knowing the triggers of hot flashes Hot flashes may be precipitated by hot weather, smoking, caffeine, spicy foods, alcohol, tight clothing, heat and stress. Identify and avoid your hot flash triggers. Some women notice hot flashes when they eat a lot of sugar. Exercising in warm temperatures might make hot flashes worse. Diet Avoiding caffeine, spicy foods, and alcohol can help lessen both the number and severity of hot flashes. Many women try to incorporate more plant estrogens into their diet. Plant estrogens, such as isoflavones, are thought to have weak estrogen-like effects that may reduce hot flashes. They may work in the body like a weak form of estrogen. Examples of plant estrogens include: soybeans, chickpeas, lentils, flaxseed, grains, beans, fruits, red clover and vegetables. In general, soybeans, chickpeas, and lentils are considered to have the most powerful plant estrogens, though their effect is much less than that of human estrogen. Try to choose natural foods rather than supplements. Also remember that only crushed or ground forms of flaxseed are likely to help (as compared to the whole seed or seed oil forms). What foods have high amounts of isoflavones Food Isoflavone Amount (Mg) In Food (100g) Soymilk 9.65 Soybeans, green, raw 151.17 Soy flour (textured) 148.61 148.61 Soybeans, dry roasted 128.35 Instant beverage soy, powder, not reconstituted 109.51 Miso soup mix, dry 60.39 Soybean chips 54.16 Tempeh, cooked 53.00 Soybean curd cheese 28.20 Tofu, silken 27.91 Tofu, yogurt 16.30 Source: USDA -- Api Healthcare Database on the Isoflavone Content of Foods, 1998 Lifestyle changes Reducing the temperature in a room, dressing in layers, and the use of a fan while asleep can be effective ways to help deal with troublesome hot flashes. Women who are overweight tend to have more bothersome hot flashes, therefore weight loss can be helpful. Quitting smoking has a dual importance during menopause. First, smoking contributes to the increased cardiovascular risks of being postmenopausal. Second, smokers tend to experience more hot flashes. Women who lead a sedentary life seem to suffer more from hot flashes; however, it is best to exercise in a cooler environment. Try deep, slow abdominal breathing (6 to 8 breaths per minute). Practice deep breathing for 15 minutes in the morning, 15 minutes in the evening and at the onset of hot flashes. For some women, wearing socks to bed is helpful as it can help to cool core body temperature. Relieving insomnia Keep the bedroom cool to prevent night sweats. Avoid using sleeping pills. Exercise daily. Avoid caffeine and alcohol at night. Take a warm bath or shower at bedtime. Try milk products at bedtime or during the night (but avoid products that contain caffeine). Coping with mood swings, fears, and depression Find a self-calming skill to practice, such as yoga, meditation or slow, deep breathing. Avoid tranquilizers, if possible. Engage in a creative outlet that fosters a sense of achievement. Stay connected with your family and community; nurture your friendships. Relieving painful intercourse Try using a vaginal water-based moisturizing lotion or lubricant during intercourse. These are sold without a prescription near the condoms in most stores. Common names include-Astroglide and [place] liquid . Avoid Vaseline , as it may lead to yeast infections. Prescription and nonprescription remedies A number of non-hormonal remedies are available for the treatment of hot flashes. Some of these remedies (e.g., black cohosh and soy products) are available inqh-ddk-[id number] but are not FDA-approved. Some prescription medications are used off label to help reduce hot flashes. Using a product off label means that it is not FDA approved for the treatment of hot flashes, but is often used because it can be safe and effective for hot flash treatment.(considered the more effective non-hormonal treatments): Drug Side Effect Effectiveness venlafaxine (Effexor ) Nausea, change in bowel habits, headache (temporary side effects for most). Elevated blood pressure (at high doses) Effectiveness has been proven in several well-designed studies. One of the safer medications for women taking tamoxifen (no drug interaction). desvenlafaxine (Pristiq ) Similar to venlafaxine. Nausea, change in bowel habits, headache (temporary side effects for most). Elevated blood pressure (at high doses) Improvement in hot flashes compared to placebo has been shown. Newer med compared to venlafaxine, so a smaller number of studies are available. fluoxetine (Prozac ) Nausea, change in bowel habits, decreased libido, insomnia. Should be avoided in women taking tamoxifen. Improvement in hot flashes has been shown in well-designed studies. paroxetine (Paxil ) Nausea, change in bowel habits, decreased libido, dry mouth, weight gain (not common) Should be avoided in women taking tamoxifen. eTends to be more effective for sleep in women who are also suffering with insomnia. Improvement in hot flashes has been shown in well-designed studies. scitalopram (Lexapro ) Nausea, change in bowel habits, decreased libido, abnormal EKG (not common) Improvement in hot flashes has been shown in well-designed studies. Gabapentin (Neurontin ) Fatigue, dizziness, nausea, disorientation, swelling, weight gain Tends to be more effective for sleep in women who are also suffering with insomnia. Clonidine (Catapres ) Dry mouth, drowsiness, fatigue, constipation, lowers blood pressure Relieved hot flashes in some, but not all studies.Less commonly used than some of the other options. Non-prescription, herbal, gxuy-gpt-vdrklli therapies: Drug Side Effects Effectiveness Evening [place] Oil Nausea, diarrhea, headache. Only one well-designed study showing not effective. Black cohosh Mild stomach upset. Safe up to 6 months only due to possible estrogen-like effects. Liver toxicity has been reported. Some small, short-term studies have suggested benefits, however most studies do not suggest that it works. Soy (plant estrogen) Also referred to as phytoestrogens. Appears safe if consumed in foods. In supplement form, consistency of dose and quality can be a concern. Supplements are not recommended for breast cancer survivors For the most part, results from clinical studies show that phytoestrogens are not effective for treatment of hot flashes. Acupuncture Uncomfortable for some, often costly. Generally well-tolerated, but multiple visits required Individual trials have reported some benefits, but larger studies have not shown any improvement over placebo procedures. However some women do report benefits with this, so it is possible that more well-designed studies are needed to answer this question. Vitamin E 13% increase risk of heart failure. Might increase rate in those who use high doses for a long time. A higher risk of prostate cancer has also been shown, but applies only to men. One study showing effective. However the improvement seen in this was only one less hot flash per day compared to placebo. Are the dfyu-izz-ddcqwpe herbal products (botanicals) safe? While safe when taken in moderate amounts through diet, the consumption of extraordinary amounts of soy and isoflavone supplements may be harmful to women with a history of estrogen-dependent cancer, like breast cancer, and possibly to other women as well. More research is needed to determine the safety and effectiveness of botanical treatments. For example, Ginseng, [place], Wild yam, Progesterone cream, reflexology, and magnetic devices are sold to help menopausal symptoms, but there are no good studies looking at their safety or effectiveness. To make an informed decision about the use of these treatments, be sure to discuss them with your doctor. Because little is known about many botanicals, the best way to evaluate their safety and effectiveness is to become an educated consumer. Here are some tips to consider when shopping for alternative therapies. Ask yourself the following questions: What is the treatment? What does it involve? How does it work? Why does it work? Are there any risks? What are the side effects? Is it effective? (Ask for evidence or proof) How much does it cost? Once you answer these questions, discuss the therapy with your doctor. Make sure your doctor knows what therapy you are considering in order to discuss possible interactions or side effects with your current treatment. What are warning signs that a product may not be legitimate? When trying to determine whether or not a product is what it says it is, one of the elements you may want to look at is how the product is promoted. Be cautious of products promoted through: Telemarketers Direct mailings [place] Ads disguised as valid news articles Ads in the back of magazines Additional red flags to look for include: Big claims: If products claim to be a cure for your condition, or gives outrageous claims, be cautious. Source: Be wary if the product is only offered through one truck guard or purchased only through a health care provider s office. Ingredients: Make sure all of the active ingredients are listed, and don t trust secret formulas. Testimonials: Remember that only people who are satisfied with a product give testimonials and that they may be getting paid for their endorsement References: National Center for Complementary and Alternative Medicine. Vitamin E. [facility].nih.gov Assessed May 29, 2012 Jero Walker et al. meta-analysis: High Dosage Vitamin E. Supplementation Might Increase All Cause Mortality. Annals of Internal Medicine March 03, 2004. annals.org National Center for Complementary and Alternative Medicine. Menopausal Symptoms and CAM. [place] healtham.nih.gov Accessed May 29, 2012 [place] Men[employer], Hormone Therapy for women in 2012. www.menopause.org Assessed May 29, 2012 [place] [employer] and Gynecologists. Publications. The Menopause Years. www.acog.org Accessed 04/27/2010 Centers for Disease Control and Prevention. Women s Reproductive Health: Menopause. www.cdc.gov Accessed 04/27/2010 National [place] on Aging. Age Page: Menopause. 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 Robbins is a 57 year old who presents for an annual gynecologic exam without complaints. Reports dense breast tissue and is wondering about breast imaging. Reports ovarian cysts in the past. Having pelvic cramping and dysmenorrhea. Feels bloated. Postmenopausal: No. Menstrual cycle every 28 days Flow 4-7 days. HRT use: No. Last Pap: 08/04/2020 normal HPV: 07/30/2020 negative History of abnormal pap: No Last mammogram: 2023 normal History of abnormal mammogram: Yes - h/o breast cysts Sexually active: Yes Hot flashes: Yes Night sweats: Yes Vaginal dryness: Yes- she reports this is chronic OB History T0 L0 SAB0 IAB0 Ectopic0 Multiple0 Live Births0 Quality Rep History LMP: 04/21/2023 (Approximate), Having periods Age at Menarche: Age at First : Age at Menopause: Quality Rep History Comments: Sexual Activity: Yes; Male; Jail female infertility Contraception: No contraception data on record PAST MEDICAL HISTORY Diagnosis Date Aortic root dilation (HCC) 4.1 cm Cervical radiculopathy 04/03/2020 Cervical spondylosis without myelopathy 04/03/2020 Chronic mixed headache syndrome 10/31/2020 Family history of Marfan syndrome H/O alopecia areata LIPOMA OTHER SKIN & SUBCUTANEOUS(Left back) 01/20/2005 Major depressive disorder, single episode, mild (HCC) 2006 Marfan's syndrome Lens dislocation and aortic root dilation PAST SURGICAL HISTORY Procedure Laterality Date CATARACT SURGERY, COMPLEX Right 05/15/1992 CLEAR LENSECTOMY Left 03/24/2001 Left Lensectomy and anterior Chamber IOL Placement- Performed by Dr. Roberto Lucero CLEAR LENSECTOMY Right 09/19/2013 Lensectomy with Anterior Chamber IOL Placement- Performed by Dr. Jomar Lucero COLONOSCOPY SCREENING 01/16/2019 [facility]. Negative. Repeat 10 years. EXCISION TUMOR SOFT TISSUE BACK/FLANK SUBQ <3CM 01/27/2007 left scapular FNA WITH IMAGING Left 01/10/2015 U/S FNA left breast 3 Oclock LAPS ABD PRTM&OMENTUM DX W/WO SPEC BR/WA SPX 1981 Laparoscopy LASER IRIDOTOMY,IRIDECTOMY, ONE EYE Right 05/16/1992 LASER IRIDOTOMY,IRIDECTOMY, ONE EYE Left 03/24/2001 [facility] MEMBRANOUS CTRC CORNEO-SCLL SCTJ Bilateral ,2013 Insert lens prosthesis RPR 1ST INGUN HRNA AGE 6 YRS/> REDUCIBLE 1996 Hernia repair, inguinal FAMILY HISTORY Problem Relation Age of Onset Heart Mother Aortic disection (Marfan's syndrome) Lipids Mother other (Marfans) Mother Heart Father CAD and Heart failure Lipids Father Hypertension Father Heart Sister Cataract Sister Detached Retina Sister Cataract Sister Cataract Sister Blindness Sister other (Marfan's ) Sister Cataract Brother other (Aortic dissection) Brother Cataract Brother other (Aortic aneurysms) Brother Breast Cancer Paternal Grandmother BREAST Diabetes Paternal Grandmother SOCIAL HISTORY Social History Tobacco Use Smoking status: Former Packs/day: 1.00 Years: 30.00 Additional pack years: 0.00 Total pack years: 30.00 Types: Cigarettes Start date: 02/29/1980 Quit date: 02/28/2011 Years since quittin.1 Smokeless tobacco: Never Vaping Use Vaping Use: Never used Substance Use Topics Alcohol use: No Drug use: No REVIEW OF SYSTEMS Abdomen: No abdominal pain, nausea, vomiting, diarrhea, or constipation. No bloating, early satiety, indigestion, or increased flatulence. Bladder: No dysuria, gross hematuria, urinary frequency, urinary urgency, or incontinence Breast: No breast lumps, nipple d/c, overlying skin changes, redness or skin retraction Allergies and current medication updated:Yes EXAM: BP 120/78 Ht 5' 7 (1.70m) Wt 210 lb 12.8 oz (95.6kg) LMP 04/21/2023 BMI 33.01 kg/(m^2). GENERAL: pleasant, female in no apparent distress HEENT: Normocephalic and atraumatic NECK: full range of motion DERMATOLOGY: Normal, without lesions, non-icteric, and non-hirsute BREAST: soft, non-tender, symmetric, no dominant mass, normal nipple-areolar complex, no lymphadenopathy, and no nipple discharge CHEST: Normal inspiratory effort ABDOMEN: soft, non-tender, and no masses PELVIC: external genitalia normal, normal Bartholin's glands, urethra, [place]'s glands, no vulvar lesions, no cervical lesions, good vaginal support, physiologic discharge present, normal appearing perineal body and perianal region BIMANUAL: uterus normal size, shape and consistency, no adnexal masses, and non-tender RECTOVAGINAL: deferred. NEURO: exam grossly non-focal EXTREMITIES: normal ASSESSMENT/PLAN: 1) Health maintenance: Pap done with HPV. Discussed screening guidelines and patient requests pap test today. Mammogram up to date. Nutrition, exercise and routine health maintenance exams reviewed. Colon cancer screening: up to date with screening. TSH/lipids/glucose: followed by PCP. BMD: followed by PCP. Discussed tea menopause and expectations. Pelvic US for bloating and pelvic discomfort. Discussed NSAIDs for dysmenorrhea. 2) Follow up one year or sooner as needed Konstantin River DO documented in this encounter [facility] 04-22-2023 Miscellaneous Notes Call from patient requesting refill. Requested Prescriptions Pending Prescriptions Disp Refills losartan (COZAAR) 100 mg tablet 90 tablet 3 Sig: Take 1 tablet by mouth once daily. atenolol (TENORMIN) 25 mg tablet 90 tablet 3 Sig: Take 1 tablet by mouth once daily. Patient last seen 07/05/2022 LOLA Garcia documented in this encounter [facility] 04-22-2023 Miscellaneous Notes Patient has new mail order pharmacy Patient has been identified by name and date of : Yes, Provider [facility] Date 04/22/23 Time 7:49 Patient phones for refill(s): Requested Prescriptions Pending Prescriptions Disp Refills omeprazole (PRILOSEC) 20 mg capsule 90 capsule 3 Sig: Take 1 capsule by mouth daily before breakfast. 1/2 hr before meal. Date of last office visit in primary care: 01/04/2023 Date of next office visit in primary care: 04/22/2023 Please advise. Thank you. Beverly Salmon LPN. documented in this encounter [facility] 04-15-2023 History of Present illness Narrative POPULATION HEALTH NAVIGATION OUTREACH Action/ Patient is on [employer] AWV compliance list for Medicare Wellness visit appointment: Lung Cancer Screening No results found for: HBA1C Patient due for: Medicare Wellness Visit Last: 01-04-23 Left message for patient to call back. Sent TweetPhoto message. Patient Identified by Name and : NO Outreach Outcome/Action Unable to reach patient: Left message NoiseFreehart message sent Did you use a PCP flex slot to schedule this appointment? N/A Reason for Outreach Care Gap or Scheduling/Wellness visits Payer: Payor: O MEDICARE / Plan: MMO MEDADVANTAGE HMO / Product Type: HMO / Care Gap Reviewed:: Annual Wellness visit Reminder: Reminder note to check Health Maintenance for items below Health Maintenance items due: Lung Cancer Screening Never done Navigation Signature: Andi Rice April 15, 2023 7:37 AM documented in this encounter [facility] 04-12-2023 History of Present illness Narrative This note was created using [employer]. Subjective Itzel Soriano is a 57 year old female. Patient reports she has had burning with urination for 4 days. Patient denies CVA tenderness, history of kidney stones, or exposure to STI. Patient reports having changed shampoos, which she uses as body wash as well. Used to have chronic UTIs but has been good for a while now Review of Systems Genitourinary: Positive for dysuria, frequency and urgency. Objective BP 116/72 Pulse (!) 56 Temp 36.3 C (97.4 F) (Tympanic) Resp 16 Wt 98.7 kg (217 lb 9.6 oz) LMP 06/07/2022 SpO2 96% BMI 34.08 kg/m Physical Exam Abdominal: Palpations: Abdomen is soft. Tenderness: There is no abdominal tenderness. There is no right CVA tenderness or left CVA tenderness. PAST MEDICAL HISTORY Diagnosis Date Aortic root dilation (HCC) 4.1 cm Cervical radiculopathy 04/03/2020 Cervical spondylosis without myelopathy 04/03/2020 Chronic mixed headache syndrome 10/31/2020 Family history of Marfan syndrome H/O alopecia areata LIPOMA OTHER SKIN & SUBCUTANEOUS(Left back) 01/20/2005 Major depressive disorder, single episode, mild (HCC) 2006 Marfan's syndrome Lens dislocation and aortic root dilation PAST SURGICAL HISTORY Procedure Laterality Date CATARACT SURGERY, COMPLEX Right 05/15/1992 CLEAR LENSECTOMY Left 03/24/2001 Left Lensectomy and anterior Chamber IOL Placement- Performed by Dr. Roberto Lucero CLEAR LENSECTOMY Right 09/19/2013 Lensectomy with Anterior Chamber IOL Placement- Performed by Dr. Jomar Lucero COLONOSCOPY SCREENING 01/16/2019 [facility]. Negative. Repeat 10 years. EXCISION TUMOR SOFT TISSUE BACK/FLANK SUBQ <3CM 01/27/2007 left scapular FNA WITH IMAGING Left 01/10/2015 U/S FNA left breast 3 Oclock LAPS ABD PRTM&OMENTUM DX W/WO SPEC BR/WA SPX 1981 Laparoscopy LASER IRIDOTOMY,IRIDECTOMY, ONE EYE Right 05/16/1992 LASER IRIDOTOMY,IRIDECTOMY, ONE EYE Left 03/24/2001 RMVL SEC MEMBRANOUS CTRC CORNEO-SCLL SCTJ Bilateral Insert lens prosthesis RPR 1ST INGUN HRNA AGE 5 YRS/> REDUCIBLE 1996 Hernia repair, inguinal ALLERGIES Baclofen, Cipro [Ciprofloxacin], Gabapentin, Macrobid [Nitrofurantoin Monohyd/M-Cryst], Sulfa (Sulfonamide Antibiotics), and Tramadol MEDICATIONS omeprazole (PRILOSEC) 20 mg capsule Take 1 capsule by mouth daily before breakfast. 1/2 hr before meal. mupirocin (BACTROBAN) 2 % ointment Apply to affected area three times daily. Treat for 10 days or as directed. Apply intranasal calcium Carbonate 300 mg, 750mg, (TUMS) 300 mg (750 mg) chewable tablet Take by mouth as needed. vitamin B complex (B COMPLEX 1 ORAL) Take 1 capsule by mouth every Tuesday and Tuesday. cholecalciferol, vitamin D3, (VITAMIN D3 ORAL) Take 10,000 Units by mouth. Twice a week calcium carb/D3/magnesium/zinc (CALCIUM CARB-D3-MAG OX-ZINC OX ORAL) Take by mouth. 1 capsule three times a week Ascorbic Acid (VITAMIN C) 1,000 mg tablet Take 2,000 mg by mouth. Three times a week Zinc Acetate, Oral, 50 mg (zinc) cap Take 1 capsule by mouth. Three times a week lysine 500 mg tab Take 500 mg by mouth as needed. losartan (COZAAR) 100 mg tablet Take 1 tablet by mouth once daily. atenolol (TENORMIN) 25 mg tablet Take 1 tablet by mouth once daily. aspirin, enteric coated (ADULT LOW DOSE ASPIRIN) 81 mg EC tablet Take 1 tablet by mouth once daily. cephALEXin (KEFLEX) 500 mg capsule Take 1 capsule by mouth two times a day for 7 days. DULoxetine (CYMBALTA) 20 mg capsule Take 1 capsule by mouth once daily. (Patient not taking: Reported on 01/04/2023) FAMILY HISTORY Problem Relation Age of Onset Heart Mother Aortic disection (Marfan's syndrome) Lipids Mother other (Marfans) Mother Heart Father CAD and Heart failure Lipids Father Hypertension Father Heart Sister Cataract Sister Detached Retina Sister Cataract Sister Cataract Sister Blindness Sister other (Marfan's ) Sister Cataract Brother other (Aortic dissection) Brother Cataract Brother other (Aortic aneurysms) Brother Breast Cancer Paternal Grandmother BREAST Diabetes Paternal Grandmother Social History Tobacco Use Smoking status: Former Packs/day: 1.00 Years: 30.00 Additional pack years: 0.00 Total pack years: 30.00 Types: Cigarettes Start date: 02/29/1980 Quit date: 02/28/2011 Years since quittin.1 Smokeless tobacco: Never Vaping Use Vaping Use: Never used Substance Use Topics Alcohol use: No Drug use: No ASSESSMENT/PLAN: 1. Urinary frequency - ICD9: 788.41, ICD10: R35.0 acute - UA positive for dolores esterase - Send urine for culture - Begin treatment with cephalexin for 7 days - Patient education for prevention given - UA DIP, URINE (POC) - URINE CULTURE - CEPHALEXIN 500 MG CAPSULE - CONSULT TO UROLOGY Prescription instructions reviewed with patient. Potential red flag symptoms discussed with the patient. Discussed following up with urology due to past history of recurrent UTIs. Reviewed appropriate action plan to take if red flag symptoms occur. Patient agreeable to treatment plan. Edel Mark Supervising provider was present and guided the care of the patient for the entire session on this date. All documentation was reviewed and agreed upon. Aicha Kemp [email or web address].ZOIE documented in this encounter [facility] 04-07-2023 Miscellaneous Notes April 08, 2023 PID: [id number] Itzel Soriano [address] [facility] [address] [place] [address] Dear Ms. Soriano, We are pleased to inform you that the results of your recent breast imaging exam on 04/07/2023 are normal. Your mammogram demonstrates that you have dense breast tissue, which could hide abnormalities. Dense breast tissue, in and of itself, is a relatively common condition. Therefore, this information is not provided to cause undue concern; rather, it is to raise your awareness and promote discussion with your health care provider regarding the presence of dense breast tissue in addition to other risk factors. Early detection of cancer is very important. We also understand recommendations regarding breast cancer screening are controversial. Please discuss with your primary care provider which strategy is best for you and whether a mammogram is right for you. Your imaging studies and report will be kept on file at [facility] as part of your permanent medical record and are available for your continuing care. Thank you for allowing us to help in meeting your health care needs. Sincerely, Dr. Leger Interpreting Radiologist [facility] (Normal over 40) documented in this encounter [facility] 04-07-2023 History of Present illness Narrative Radiology Service Progress Note PATIENT NAME: Itzel Soriano DATE OF SERVICE: April 07, 2023 TIME: 7:25 AM PATIENT IDENTITY VERIFICATION COMPLETED USING TWO (2) IDENTIFIERS: Name and Date of confirmed by patient verbally. FALL SCREENING: Has the patient had 2 falls in the last year or 1 fall with injury or currently using an Ambulatory Assistive Device (Walker, Cane, Wheelchair, Crutches, etc.)? No PATIENT GENDER DATA: Female. status: : No status: NO. PATIENT RELEVANT IMPLANT DATA REVIEWED: Not Applicable PATIENT PRESENTS WITH AN IMPLANTABLE OR ATTACHED DISCHARGE SPECIALIST: No RADIOLOGY DEPARTMENT: Mammography PERIPHERAL IV DATA: Not applicable SIGNED BY: Dali Kongo Wilmer April 07, 2023 7:25 AM documented in this encounter [facility] 01-04-2023 History of Present illness Narrative Radiology Service Progress Note PATIENT NAME: Itzel Soriano DATE OF SERVICE: January 04, 2023 TIME: 3:20 PM PATIENT IDENTITY VERIFICATION COMPLETED USING TWO (2) IDENTIFIERS: Name and Date of confirmed by patient verbally. FALL SCREENING: Has the patient had 2 falls in the last year or 1 fall with injury or currently using an Ambulatory Assistive Device (Walker, Cane, Wheelchair, Crutches, etc.)? No PATIENT GENDER DATA: Female. status: : No status: NO. PATIENT RELEVANT IMPLANT DATA REVIEWED: Not Applicable RADIOLOGY DEPARTMENT: Ultrasound PERIPHERAL IV DATA: Not applicable SIGNED BY: Brianna Tang RDMS RVT January 04, 2023 3:20 PM documented in this encounter [facility] 12-10-2022 Miscellaneous Notes Detailed message left for patient. Message left for pt to call PCP office for message below or see [facility] for new orders placed. Tawnya Nogueira RN Labs ordered. Patient calling asking for an order for 3 D Mamm wants to have done at [facility] this year, done at [facility] last year 12/16/2021. Pending order. Patient asking if she needs lab orders done prior to her January 04 (6 month appt) appt? Last labs were done early Mar, CMP, lipid, CBC. Did not pend lab orders. Please advise documented in this encounter [facility] 08-11-2022 Miscellaneous Notes No acute radiographic abnormality documented in this encounter [facility] 08-11-2022 Progress note Formatting of t his note might be different from the original. No acute radiographic abnormality [facility] 08-11-2022 Instructions Lenny Dumas MD - 08/11/2022 4:30 PM EDT Aulander gel (tube or spray) Bactroban for in case there is infection. Use instead of triple antibiotic. documented in this encounter [facility] 08-11-2022 History of Present illness Narrative This note was created using [employer]. Subjective Itzel Soriano is a 56 year old female. Patient presents with: Acute Visit: Painful sternum, stiff muscles, fatigue SUBJECTIVE: Itzel Soriano is a 56 year old year old lady here today for follow up appointment for review of medical conditions. Pain in sternum is better when stretches but worse when goes back to normal. Pain across anterior chest. This is chronic the past few years. Chronic in back. Some burning sensation inside back The sternum always hurts but this time was excruciatingly painful and made her weepy. Took PPI starting yesterday. Teachey like as talking really fast. Some fluid retention and hard to put on rings. Does grind teeth. Head gets hurting too. DDD issues noted. Fatigue with activity. Counseling. Working on healthy changes. Belly feels like a big basketball. Cut out chocolate Stops eating after 6:00. Adding more veggies and some fruit. Gets crusty lesion in right side of nose; feels congested and full on the left. PAST MEDICAL HISTORY Diagnosis Date Aortic root dilation (HCC) 4.1 cm Cervical radiculopathy 04/03/2020 Cervical spondylosis without myelopathy 04/03/2020 Chronic mixed headache syndrome 10/31/2020 Family history of Marfan syndrome H/O alopecia areata LIPOMA OTHER SKIN & SUBCUTANEOUS(Left back) 01/20/2005 Major depressive disorder, single episode, mild (HCC) 2006 Marfan's syndrome Lens dislocation and aortic root dilation Current Outpatient Medications Medication Sig vitamin B complex (B COMPLEX 1 ORAL) Take 1 capsule by mouth every Tuesday and Tuesday. cholecalciferol, vitamin D3, (VITAMIN D3 ORAL) Take 10,000 Units by mouth. Twice a week calcium carb/D3/magnesium/zinc (CALCIUM CARB-D3-MAG OX-ZINC OX ORAL) Take by mouth. 1 capsule three times a week Ascorbic Acid (VITAMIN C) 1,000 mg tablet Take 2,000 mg by mouth. Three times a week Zinc Acetate, Oral, 50 mg (zinc) cap Take 1 capsule by mouth. Three times a week lysine 500 mg tab Take 500 mg by mouth as needed. losartan (COZAAR) 100 mg tablet Take 1 tablet by mouth once daily. atenolol (TENORMIN) 25 mg tablet Take 1 tablet by mouth once daily. DULoxetine (CYMBALTA) 20 mg capsule Take 1 capsule by mouth once daily. aspirin, enteric coated (ADULT LOW DOSE ASPIRIN) 81 mg EC tablet Take 1 tablet by mouth once daily. Omeprazole Magnesium (PRILOSEC OTC) 20 mg tablet Take 1 tablet by mouth daily before breakfast. 1/2 hr before meal. calcium Carbonate 300 mg, 750mg, (TUMS) 300 mg (750 mg) chewable tablet Take by mouth as needed. No current facility-administered medications for this visit. Review of Systems Objective BP 120/72 Pulse 81 Resp 16 Wt 93 kg (205 lb) LMP 06/07/2022 SpO2 95% BMI 32.11 kg/m Physical Exam Constitutional: Appearance: Normal appearance. HENT: Head: Normocephalic. Eyes: Conjunctiva/sclera: Conjunctivae normal. Cardiovascular: Rate and Rhythm: Normal rate and regular rhythm. Heart sounds: Normal heart sounds. Pulmonary: Effort: Pulmonary effort is normal. Breath sounds: Normal breath sounds. Musculoskeletal: Comments: Tender over sternums and sterocostal margin Skin: General: Skin is warm and dry. Neurological: General: No focal deficit present. Mental Status: She is alert and oriented to person, place, and time. Psychiatric: Mood and Affect: Mood normal. Behavior: Behavior normal. Thought Content: Thought content normal. Judgment: Judgment normal. Assessment and Plan Encounter Diagnosis ICD-10-CM 1. Sternal pain R07.89 XR CHEST 2V FRONTAL/LAT 2. SOB (shortness of breath) R06.02 XR CHEST 2V FRONTAL/LAT Chest Xray ordered. Further evaluation and treatment as indicated. 3. Chronic fatigue R53.82 4. Chronic midline back pain, unspecified back location M54.9 G89.29 burning sensation; possible pinched nerve given has DDD cervical spine. Further evaluation and treatment as indicated 5. Class 1 obesity due to excess calories with body mass index (BMI) of 32.0 to 32.9 in adult, unspecified whether serious comorbidity present E66.09 Z68.32 6. Abdominal bloating R14.0 Working on healthier diet. Can try simethicone routinely for gas 7. Moderate major depression (HCC) F32.1 Continue Cymbalta and counseling. Above issues addressed with patient. Patient involved in shared decision making for management of medical issues. History and medications reviewed. Epic updated as needed Refills and/or prescriptions taken care of and meds adjusted as indicated after reviewed history, exam and labs. Health Maintenance reviewed. Updated record and/or ordered tests as recorded. Encouraged on efforts at healthy diet and regular exercise and adequate sleep. I spent a total of 37 minutes on the date of the service which included [id number] patient care, completing clinical documentation, obtaining and/or reviewing separately obtained history, performing a medically appropriate examination, counseling and educating the patient/family/caregiver, and ordering medications, tests, or procedures. Lenny Dumas MD documented in this encounter [facility] 06-11-2022 History of Present illness Narrative Radiology Service Progress Note PATIENT NAME: Itzel Soriano DATE OF SERVICE: June 11, 2022 TIME: 11:38 AM PATIENT IDENTITY VERIFICATION COMPLETED USING TWO (2) IDENTIFIERS: Name and Date of confirmed by patient verbally. FALL SCREENING: Has the patient had 2 falls in the last year or 1 fall with injury or currently using an Ambulatory Assistive Device (Walker, Cane, Wheelchair, Crutches, etc.)? No PATIENT GENDER DATA: Female. status: : No status: NO. PATIENT RELEVANT IMPLANT DATA REVIEWED: Yes RADIOLOGY DEPARTMENT: MR; Exam(s) Completed: Spine: Cervical spine PERIPHERAL IV DATA: Not applicable SIGNED BY: RT Margy(R) June 11, 2022 11:38 AM documented in this encounter [facility] 06-07-2022 Instructions Matilde Ocasio MD - 06/07/2022 3:07 PM EDT Images from the original note were not included. Foods that fight inflammation November 16, 2019 Doctors are learning that one of the best ways to reduce inflammation lies not in the medicine cabinet, but in the refrigerator. By following an anti-inflammatory diet you can fight off inflammation for good. What does an anti-inflammatory diet do? Your immune system becomes activated when your body recognizes anything that is foreign--such as an invading microbe, plant pollen, or chemical. This often triggers a process called inflammation. Intermittent bouts of inflammation directed at truly threatening invaders protect your health. However, sometimes inflammation persists, day in and day out, even when you are not threatened by a foreign invader. That's when inflammation can become your enemy. Many major diseases that plague us--including cancer, heart disease, diabetes, arthritis, depression, and Alzheimer's--have been linked to chronic inflammation. One of the most powerful tools to combat inflammation comes not from the pharmacy, but from the grocery store. Many experimental studies have shown that components of foods or beverages may have anti-inflammatory effects, says Dr. Jermaine Iverson, professor of nutrition and epidemiology in the Department of Nutrition at the [employer]. Choose the right anti-inflammatory foods, and you may be able to reduce your risk of illness. Consistently pick the wrong ones, and you could accelerate the inflammatory disease process. Get simple tips to fight inflammation and stay healthy -- from [facility] [employer] experts. Protect yourself from the damage of chronic inflammation Click here to learn more Foods that cause inflammation Try to avoid or limit these foods as much as possible: refined carbohydrates, such as white bread and pastries Czech fries and other fried foods soda and other sugar-sweetened beverages red meat (burgers, steaks) and processed meat (hot dogs, sausage) margarine, shortening, and lard The health risks of inflammatory foods Not surprisingly, the same foods on an inflammation diet are generally considered bad for our health, including sodas and refined carbohydrates, as well as red meat and processed meats. Some of the foods that have been associated with an increased risk for chronic diseases such as type 2 diabetes and heart disease are also associated with excess inflammation, Dr. Iverson says. It's not surprising, since inflammation is an important underlying mechanism for the development of these diseases. Unhealthy foods also contribute to weight gain, which is itself a risk factor for inflammation. 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 Some of the food components or ingredients may have independent effects on inflammation over and above increased caloric intake, Dr. Iverson says. Anti-inflammatory foods An anti-inflammatory diet should include these foods: tomatoes olive oil green leafy vegetables, such as spinach, kale, and collards nuts like almonds and walnuts fatty fish like salmon, mackerel, tuna, and sardines fruits such as strawberries, blueberries, cherries, and oranges Benefits of anti-inflammatory foods On the flip side are beverages and foods that reduce inflammation, and with it, chronic disease, says Dr. Iverson. He notes in particular fruits and vegetables such as blueberries, apples, and leafy greens that are high in natural antioxidants and polyphenols--protective compounds found in plants. Studies have also associated nuts with reduced markers of inflammation and a lower risk of cardiovascular disease and diabetes. Coffee, which contains polyphenols and other anti-inflammatory compounds, may protect against inflammation, as well. Anti-inflammatory diet To reduce levels of inflammation, aim for an overall healthy diet. If you're looking for an eating plan that closely follows the tenets of anti-inflammatory eating, consider the Mediterranean diet, which is high in fruits, vegetables, nuts, whole grains, fish, and healthy oils. In addition to lowering inflammation, a more natural, less processed diet can have noticeable effects on your physical and emotional health. A healthy diet is beneficial not only for reducing the risk of chronic diseases, but also for improving mood and overall quality of life, Dr. Iverson says. 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 Robbins is a 56 year old who presents for an annual gynecologic exam with complaints, pelvic pain. Has a sharp pain that occurs once or twice a month. Brought in recent CT scan that showed new cyst on right ovary. Stays home with , 89. Working on improving diet- admits to not being very active. Had knee injury this year. Postmenopausal: No. Menstrual cycle every 21-25 days Flow 5-7 days. Irregular frequency lately, distance between last two periods was 39 days. HRT use: No. Last Pap: 08/04/2020 normal HPV: 07/30/2020 negative History of abnormal pap: No Last mammogram: 2021 normal History of abnormal mammogram: Yes History of cysts, no history of malignancy. Sexually active: Yes History of STDS: None Patient concerns for STD exposure: No. Hot flashes: Yes, last ten years Night sweats: Yes, last ten years Vaginal dryness: No Mood swings: Yes OB History T0 L0 SAB0 IAB0 Ectopic0 Multiple0 Live Births0 Quality Rep History LMP: 06/07/2022, Having periods Age at Menarche: Age at First : Age at Menopause: Quality Rep History Comments: Sexual Activity: Yes; Male; Jail female infertility Contraception: No contraception data on record PAST MEDICAL HISTORY Diagnosis Date Aortic root dilation (HCC) 4.1 cm Cervical radiculopathy 04/03/2020 Cervical spondylosis without myelopathy 04/03/2020 Chronic mixed headache syndrome 10/31/2020 Family history of Marfan syndrome H/O alopecia areata LIPOMA OTHER SKIN & SUBCUTANEOUS(Left back) 01/20/2005 Major depressive disorder, single episode, mild (HCC) 2006 Marfan's syndrome Lens dislocation and aortic root dilation PAST SURGICAL HISTORY Procedure Laterality Date CATARACT SURGERY, COMPLEX Right 05/15/1992 CLEAR LENSECTOMY Left 03/24/2001 Left Lensectomy and anterior Chamber IOL Placement- Performed by Dr. Roberto Lucero CLEAR LENSECTOMY Right 09/19/2013 Lensectomy with Anterior Chamber IOL Placement- Performed by Dr. Jomar Lucero COLONOSCOPY SCREENING 01/16/2019 [facility]. Negative. Repeat 10 years. EXCISION TUMOR SOFT TISSUE BACK/FLANK SUBQ <3CM 01/27/2007 left scapular FNA WITH IMAGING Left 01/10/2015 U/S FNA left breast 3 Oclock LAPS ABD PRTM&OMENTUM DX W/WO SPEC BR/WA SPX 1981 Laparoscopy LASER IRIDOTOMY,IRIDECTOMY, ONE EYE Right 05/16/1992 LASER IRIDOTOMY,IRIDECTOMY, ONE EYE Left 03/24/2001 RMVL SEC MEMBRANOUS CTRC CORNEO-SCLL SCTJ Bilateral Insert lens prosthesis RPR 1ST INGUN HRNA AGE 5 YRS/> REDUCIBLE 1997 Hernia repair, inguinal FAMILY HISTORY Problem Relation Age of Onset Heart Mother Aortic disection (Marfan's syndrome) Lipids Mother other (Marfans) Mother Heart Father CAD and Heart failure Lipids Father Hypertension Father Heart Sister Cataract Sister Detached Retina Sister Cataract Sister Cataract Sister Blindness Sister other (Marfan's ) Sister Cataract Brother other (Aortic dissection) Brother Cataract Brother other (Aortic aneurysms) Brother Breast Cancer Paternal Grandmother BREAST Diabetes Paternal Grandmother SOCIAL HISTORY Social History Tobacco Use Smoking status: Former Packs/day: 0.20 Years: 25.00 Pack years: 5.00 Types: Cigarettes Start date: 01/07/1985 Quit date: 02/29/2008 Years since quittin.2 Smokeless tobacco: Never Vaping Use Vaping Use: Never used Substance Use Topics Alcohol use: No Drug use: No REVIEW OF SYSTEMS Abdomen: No abdominal pain, nausea, vomiting, diarrhea, or constipation. No bloating, early satiety, indigestion, or increased flatulence. Bladder: No dysuria, gross hematuria, urinary frequency, urinary urgency, or incontinence Breast: No breast lumps, nipple d/c, overlying skin changes, redness or skin retraction Allergies and current medication updated:Yes EXAM: BP 120/80 Ht 5' 7 (1.70m) Wt 207 lb 8 oz (94.1kg) LMP 06/07/2022 BMI 32.49 kg/(m^2). GENERAL: pleasant, female in no apparent distress HEENT: Normocephalic, atraumatic, mucus membranes moist, and no lesions NECK: Supple, full range of motion, no adenopathy, and thyroid normal DERMATOLOGY: Normal, without lesions, non-icteric, and non-hirsute BREAST: soft, non-tender, symmetric, no dominant mass, normal nipple-areolar complex, no lymphadenopathy, and no nipple discharge ABDOMEN: soft, non-tender, and no masses PELVIC: external genitalia normal, normal Bartholin's glands, urethra, Lakeshire's glands, no vulvar lesions, no cervical lesions, good vaginal support, physiologic discharge present, normal appearing perineal body and perianal region BIMANUAL: uterus normal size, shape and consistency, no adnexal masses, and non-tender RECTOVAGINAL: deferred. NEURO: alert and oriented x3,exam grossly non-focal EXTREMITIES: normal ASSESSMENT/PLAN: 1) Health maintenance: Pap/HPV up to date. Mammogram ordered Mammogram up to date Nutrition, exercise and routine health maintenance exams reviewed. Colon cancer screening: up to date with screening 2) Follow up one year or sooner as needed 3) offered PT for knee- declines at this time. Reviewed antiinflam diet. Matilde Pettit MD documented in this encounter [facility] 05-28-2022 History of Present illness Narrative This note was created using [employer]. Subjective Itzel Soriano is a 56 year old female. Patient presents with: Established Patient: Review CT scan done 05/27/2022 at [facility] SUBJECTIVE: Itzel Soriano is a 56 year old year old lady here today for follow up appointment for review of medical conditions: CT scan done for Gastro. Wanted to review results today. CT report from [facility] obtained. Started on regular exercise. Walking daily. Left knee got irritated medically. Cervical spine issues noted. Has right sided symptoms. Cervical stenosis and DDD issues noted. Still with right arm symptoms. Tried massotherapy for the really tight muscles but not able to get it taken care of. Tried acupuncture but had not helped.. PAST MEDICAL HISTORY Diagnosis Date Aortic root dilation (HCC) 4.1 cm Cervical radiculopathy 04/03/2020 Cervical spondylosis without myelopathy 04/03/2020 Chronic mixed headache syndrome 10/31/2020 Family history of Marfan syndrome H/O alopecia areata LIPOMA OTHER SKIN & SUBCUTANEOUS(Left back) 01/20/2005 Major depressive disorder, single episode, mild (HCC) 2006 Marfan's syndrome Lens dislocation and aortic root dilation Current Outpatient Medications Medication Sig losartan (COZAAR) 100 mg tablet Take 1 tablet by mouth once daily. atenolol (TENORMIN) 25 mg tablet Take 1 tablet by mouth once daily. aspirin, enteric coated (ADULT LOW DOSE ASPIRIN) 81 mg EC tablet Take 1 tablet by mouth once daily. DULoxetine (CYMBALTA) 20 mg capsule Take 1 capsule by mouth once daily. (Patient not taking: No sig reported) No current facility-administered medications for this visit. Review of Systems Objective BP 104/62 Pulse (!) 59 Temp (!) 35.8 C (96.5 F) Resp 18 Wt 93 kg (205 lb) LMP 03/31/2022 SpO2 97% BMI 32.11 kg/m Physical Exam Constitutional: Appearance: Normal appearance. She is obese. HENT: Head: Normocephalic. Eyes: Conjunctiva/sclera: Conjunctivae normal. Cardiovascular: Rate and Rhythm: Normal rate and regular rhythm. Heart sounds: Normal heart sounds. Pulmonary: Effort: Pulmonary effort is normal. Breath sounds: Normal breath sounds. Skin: General: Skin is warm and dry. Neurological: General: No focal deficit present. Mental Status: She is alert and oriented to person, place, and time. Psychiatric: Mood and Affect: Mood normal. Behavior: Behavior normal. Thought Content: Thought content normal. Judgment: Judgment normal. Component Latest Ref Rng & Units 04/01/2021 05/25/2021 07/16/2021 04/02/2022 Protein, Total 6.3 - 8.0 g/dL 6.5 6.6 Albumin 3.9 - 4.9 g/dL 4.0 4.0 Calcium 8.5 - 10.2 mg/dL 8.7 8.5 Bilirubin, Total 0.2 - 1.3 mg/dL 0.3 0.2 Alkaline Phosphatase 34 - 123 U/L 102 98 AST 13 - 35 U/L 21 15 Glucose 74 - 99 mg/dL 99 101 (H) BUN 7 - 21 mg/dL 10 10 Creatinine 0.58 - 0.96 mg/dL 0.65 0.64 Sodium 136 - 144 mmol/L 135 (L) 137 Potassium 3.7 - 5.1 mmol/L 4.6 3.9 Chloride 97 - 105 mmol/L 102 104 CO2 22 - 30 mmol/L 24 25 Anion Gap 9 - 18 mmol/L 9 8 (L) ALT 7 - 38 U/L 18 13 eGFR- >60 eGFR-All Other Races . >60 eGFR >=60 mL/min/1.73m 105 WBC 3.70 - 11.00 k/uL 7.71 6.34 RBC 3.90 - 5.20 m/uL 4.33 4.34 Hemoglobin 11.5 - 15.5 g/dL 12.9 13.0 Hematocrit 36.0 - 46.0 % 38.0 37.0 MCV 80.0 - 100.0 fL 87.8 85.3 MCH 26.0 - 34.0 pg 29.8 30.0 MCHC 30.5 - 36.0 g/dL 33.9 35.1 RDW-CV 11.5 - 15.0 % 12.2 12.1 Platelet Count 150 - 400 k/uL 262 252 MPV 9.0 - 12.7 fL 10.3 10.4 Absolute nRBC <0.01 k/uL <0.01 <0.01 Cholesterol, Total <200 mg/dL 208 (H) 214 (H) Triglyceride <150 mg/dL 108 85 HDL Cholesterol >39 mg/dL 53 52 LDL Cholesterol <100 mg/dL 133 (H) 145 (H) Non HDL Cholesterol <130 mg/dL 155 (H) 162 (H) Fasting Time hrs 10 10 VLDL Cholesterol <30 mg/dL 22 17 TC:HDL Ratio <5.10 3.92 4.12 LDL:HDL Ratio <2.54 2.51 2.79 (H) c-ANCA Fluorescence Negative Negative p-ANCA Fluorescence Negative Negative Interpretation (ANCA) Negative for C-ANCA and P-ANCA by indirect immunofluorescence. Staff Review (ANCA) No review performed. ROSEMARIE Negative Positive (A) ROSEMARIE Titer 1:80 ROSEMARIE Pattern Nuclear fine speckled Iron 41 - 186 ug/dL 115 TIBC 232 - 386 ug/dL 357 Transferrin Saturation 15 - 57 % 32 CCP Antibody IgG Qualitative Negative Negative CCP Antibody, IgG <20 Units <15 Sm Antibody Negative Negative Anti-Sm <1.0 AI <0.2 BUILDING TECH Antibody QUAL Negative Negative Anti-BUILDING TECH <1.0 AI <0.2 SSA Antibody Qual Negative Negative Anti-SSA <1.0 AI <0.2 Anti-SSB <1.0 AI <0.2 SSB Antibody Qual Negative Negative CENTROMERE AB QUAL Negative Negative Centromere Ab <1.0 AI <0.2 Scleroderma Ab Qual Negative Negative Scl-70 Abs, EIA <1.0 AI <0.2 RADHA 1 ANTIBODY QUAL Negative Negative Radha 1 Antibody <1.0 AI <0.2 Ribosomal BUILDING TECH Qualitative Negative Negative Ribosomal BUILDING TECH Ab <1.0 AI <0.2 Chromatin Ab Qual Negative Negative Chromatin Ab <1.0 AI <0.2 TSH 0.270 - 4.200 uU/mL 2.140 DNA Antibody w/Confirmation <30 IU/mL <12 Rheumatoid Factor <16 IU/mL <10 WSR 0 - 20 mm/hr 18 CRP <0.9 mg/dL 0.4 CK 42 - 196 U/L 95 Vitamin B12 232-1,245 pg/mL 901 Vitamin D 25 Hydroxy 31.0 - 80.0 ng/mL 42.1 Zinc 60 - 120 ug/dL 72 Microsomal Antibody <5.6 IU/mL 1.4 Hep C Antibody IA Negative Negative Hep B Surface Ag Negative Negative Hep B Surface Ab, Qual Negative Positive (A) Hep B Core Ab, Total Negative Negative The 10-year ASCVD risk score (Luan WRIGHT, et al., 2019) is: 1.5% Values used to calculate the score: Age: 56 years Sex: Female Is Non- : No Diabetic: No Tobacco smoker: No Systolic Blood Pressure: 104 mmHg Is BP treated: No HDL Cholesterol: 52 mg/dL Total Cholesterol: 214 mg/dL Assessment and Plan Encounter Diagnosis ICD-10-CM 1. NAFLD (nonalcoholic fatty liver disease) K76.0 2. Cyst of right ovary N83.[address] Ocasio 3. Left knee pain, unspecified chronicity M25.562 strain presumed with exercise 4. Cervical radiculopathy M54.12 stenosis and DDD issues noted 5. Class 1 obesity due to excess calories with body mass index (BMI) of 32.0 to 32.9 in adult, unspecified whether serious comorbidity present E66.09 Z68.32 Above issues addressed with patient. Patient involved in shared decision making for management of medical issues. History and medications reviewed. Epic updated as needed Refills and/or prescriptions taken care of and meds adjusted as indicated after reviewed history, exam and labs. Health Maintenance reviewed. Updated record and/or ordered tests as recorded. Encouraged on efforts at healthy diet and regular exercise and adequate sleep. Lenny Dumas MD documented in this encounter [facility] 05-04-2022 Instructions Aida Hadley MD - 05/04/2022 12:00 PM EST Contact me if you have any questions or any problems documented in this encounter [facility] 05-04-2022 History of Present illness Narrative Summary: History of right arm weakness Images from the original note were not included. [facility] New Patient Evaluation Consulting Provider: Nohemy Davis [address] [place] [address] Individuals who were included in, or assisted with the encounter were: Itzel Soriano Aida Hadley MD Patient's sister Chief Complaint/Issues: Itzel Soriano is a 56 year old female seen in the [facility] for: History of right arm weakness Marfan syndrome HPI: Patient is a healthy 56-year-old woman who comes with history that in 2018 she had an episode of severe pain of her right arm for 8 months. She was unable to move her right arm. The pain worsened with any movement. She had decreased strength in the right arm. She had pain over the right upper quadrant of her body including the neck and the face. She gradually improved with physical therapy and ice. She says that she had traction of the neck that helped her. She says that the arm still feels numb from her elbow to the shoulder. She has pain on the right side of the head and neck at times. Past medical history: She has history of Marfan's. She has not had any dissection. Family history: Family history significant for Marfan's and seven siblings and her mother. Social history: She does not smoke or drink alcohol. Review of systems: She has history of migraine in the past. She has history of alopecia areata in the past. She has previous history of depression. (As per records) Previous notes: Impression: Itzel Soriano has PMH fibromyalgia, myofascial pain syndrome, Marfan syndrome, TMJ, bruxism who presents for evaluation of R frontal headaches that started in September 2019. Neurological exam normal. New daily persistent headache is most likely with migrainous features given unilateral location, severity, and sensory phobias. Cervicogenic headache is also possible especially given the symptom onset and C6-C7 disc herniation with RUE weakness. TAC is possible given unilateral symptoms, but lack of autonomic features makes this also less likely. Trigeminal neuralgia given the distribution is possible, but the severity and pain description do not sound as consistent with this General Examination: BP 119/73 Pulse (!) 56 Ht 170.2 cm (5' 7) Wt 93 kg (205 lb) LMP 03/25/2022 SpO2 98% BMI 32.11 kg/m She is accompanied sister. General: Awake, alert, interactive, no acute distress, good nutritional status, normal development, well-kept Neurological Exam Mental Status Alert, fully oriented, attentive, with normal cognition, memory, speech and affect. Cranial Nerves Visual isaac intact. Fundi with normal discs and vasculature. Pupils reactive. Extraocular movements conjugate and full. No ptosis. No nystagmus. Facial sensation intact. Face symmetric and strong. Palate and tongue normal. XI normal. Motor Examination and Coordination Motor examination with normal bulk, strength and tone. No drift. Normal rapid alternating movements and coordination. No adventitious movements or significant tremor. Reflexes Deep tendon reflexes graded by MRC Deep Tendon Reflexes Right Left Biceps 2+ 2+ Triceps 2+ 2+ Brachioradialis 2+ 2+ Patellar 2+ 2+ Achilles 2+ 2+ Plantar Downgoing Downgoing Sensation Sensation intact to light touch, pinprick,and vibration. There is minimal sensory asymmetry and she notes minimal decrease in sensation on the right forearm. Gait Arises easily. Casual gait, tandem, and Romberg are normal. Can rise on heels and toes. Assessment & Plan 05/04/2022 - General Neurology, Aida Hadley MD ASSESSMENT Clinically, her previous symptoms are most likely related to cervical spine degenerative joint disease and possible radiculopathy. The persistence of the difficulty with movement raises the possibility that this may be related to frozen shoulder or similar problems due to inadequate movement. I discussed this with the patient. I also told her that stress can sometimes cause difficulty with movements I was not certain about the diagnosis since I have not seen her at the time. She has Marfan syndrome. If she develops pain in a similar fashion abruptly she should go to the hospital. I reviewed her MRI scan images with the patient. 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 She should avoid prolonged hyperextension such as painting ceilings. She does not require any other specific restrictions of movement but generally should avoid hyperextending the neck, with injuries such as falls. PLAN I will see her back as needed. She can contact me if there is any change in her symptoms or any new problems. I do not see any value in repeating her imaging studies at this time since she does not have any findings to suggest spinal canal stenosis that is symptomatic. Encounter Diagnosis ICD-10-CM 1. Cervicalgia M54.2 2. Marfan's syndrome Q87.40 3. Chronic mixed headache syndrome G44.89 Return in about 1 year (around 05/05/2023), or if symptoms worsen or fail to improve. Data Review Objective Current Outpatient Medications Medication Sig losartan (COZAAR) 100 mg tablet Take 1 tablet by mouth once daily. atenolol (TENORMIN) 25 mg tablet Take 1 tablet by mouth once daily. aspirin, enteric coated (ADULT LOW DOSE ASPIRIN) 81 mg EC tablet Take 1 tablet by mouth once daily. DULoxetine (CYMBALTA) 20 mg capsule Take 1 capsule by mouth once daily. (Patient not taking: No sig reported) No current facility-administered medications for this visit. ACTIVE PROBLEM LIST Marfan's Syndrome Aortic Root Dilation (Hcc) Family History of Marfan Syndrome Chronic Mixed Headache Syndrome Obesity, Class I, Bmi 30-34.9 Anxiety Cervical Radiculopathy Depression With Anxiety Adnexal Mass Liver Cyst PAST MEDICAL HISTORY Diagnosis Date Aortic root dilation (HCC) 4.1 cm Cervical radiculopathy 04/03/2020 Cervical spondylosis without myelopathy 04/03/2020 Chronic mixed headache syndrome 10/31/2020 Family history of Marfan syndrome H/O alopecia areata LIPOMA OTHER SKIN & SUBCUTANEOUS(Left back) 01/20/2005 Major depressive disorder, single episode, mild (HCC) 2006 Marfan's syndrome Lens dislocation and aortic root dilation PAST SURGICAL HISTORY Procedure Laterality Date CATARACT SURGERY, COMPLEX Right 05/15/1992 CLEAR LENSECTOMY Left 03/24/2001 Left Lensectomy and anterior Chamber IOL Placement- Performed by Dr. Roberto Lucero CLEAR LENSECTOMY Right 09/19/2013 Lensectomy with Anterior Chamber IOL Placement- Performed by Dr. Jomar Lucero COLONOSCOPY SCREENING 01/16/2019 [facility]. Negative. Repeat 10 years. EXCISION TUMOR SOFT TISSUE BACK/FLANK SUBQ <3CM 01/27/2007 left scapular FNA WITH IMAGING Left 01/10/2015 U/S FNA left breast 3 Oclock LAPS ABD PRTM&OMENTUM DX W/WO SPEC BR/WA SPX 1981 Laparoscopy LASER IRIDOTOMY,IRIDECTOMY, ONE EYE Right 05/16/1992 LASER IRIDOTOMY,IRIDECTOMY, ONE EYE Left 03/24/2001 RMVL SEC MEMBRANOUS CTRC CORNEO-SCLL SCTJ Bilateral ,2013 Insert lens prosthesis RPR 1ST INGUN HRNA AGE 5 YRS/> REDUCIBLE 1996 Hernia repair, inguinal Social History Tobacco Use Smoking status: Former Packs/day: 0.20 Years: 25.00 Pack years: 5.00 Types: Cigarettes Start date: 01/07/1985 Quit date: 02/29/2008 Years since quittin.1 Smokeless tobacco: Never Vaping Use Vaping Use: Never used Substance Use Topics Alcohol use: No Drug use: No FAMILY HISTORY Problem Relation Age of Onset Heart Mother Aortic disection (Marfan's syndrome) Lipids Mother other (Marfans) Mother Heart Father CAD and Heart failure Lipids Father Hypertension Father Heart Sister Cataract Sister Detached Retina Sister Cataract Sister Cataract Sister Blindness Sister other (Marfan's ) Sister Cataract Brother other (Aortic dissection) Brother Cataract Brother other (Aortic aneurysms) Brother Breast Cancer Paternal Grandmother BREAST Diabetes Paternal Grandmother Review of Systems Lab and Test Review: Common Neurology Labs: Last 3 sets of ESR, CRP, CK, Vitamin B12, MMA, Folate, Vitamin D, Copper ESR, WSR Latest Ref Rng & Units 07/16/2021 03/12/2020 WSR 0 - 20 mm/hr 18 9 CRP Latest Ref Rng & Units 07/16/2021 CRP <0.9 mg/dL 0.4 CK Latest Ref Rng & Units 07/16/2021 CK 42 - 196 U/L 95 Vitamin B12 Latest Ref Rng & Units 07/16/2021 VITAMIN B12 232-1,245 pg/mL 901 No flowsheet data found.No flowsheet data found. Vitamin D Latest Ref Rng & Units 07/16/2021 VITAMIN D 25 HYDROXY 31.0 - 80.0 ng/mL 42.1 No flowsheet data found. MRI Head/Brain - Last 2 Impressions MRI BRAIN WO/W IVCON Exam End: 09/09/2020 1:55 PM (Final result) Impression: IMPRESSION: No acute intracranial process. No intracranial mass or abnormal intracranial enhancement. Chronic changes as described. ... MRA Head and/or Neck - Last 2 Impressions MRA BRAIN WO IVCON Exam End: 09/09/2020 1:46 PM (Final result) Impression: IMPRESSION: No significant narrowing of the major arteries of the head. No intracranial aneurysm identified. Tray Checker: ARCELIA Transcribe Date/Time: Sep 09 2020 1:46P Dictated by : GRACE SHAW MD This examination was interpreted and the report reviewed and electronically signed by: GABBY ELIZALDE MD on Sep 09 2020 2:02PM EST MRI Spine - Last 2 Impressions MRI LUMBAR SPINE WO CONTRAST Collected: 06/29/2013 2:21 PM (Final result) Outside Data/Labs: Subjective Patient-Entered Data: 05/04/22 - GENERAL NEUROLOGY SCORES PROMIS 10 08/18/2020 02/23/2021 03/30/2022 In general, would you say your health is: Good - Fair In general, would you say your quality of life is: Good - Fair In general, how would you rate your physical health? Fair Poor Fair In general, how would you rate your mental health, including your mood and your ability to think? Fair Fair Fair In general, how would you rate your satisfaction with your social activities and relationships? Fair Fair Fair To what extent are you able to carry out your everyday physical activities such as walking, climbing stairs, carrying groceries, or moving a chair? Completely Moderately Mostly In general, please rate how well you carry out your usual social activities and roles. (This includes activities at home, at work and in your community, and responsibilities as a parent, child, spouse, employee, friend, etc.) Fair Fair Fair How would you rate your pain on average? 3 4 6 How would you rate your fatigue on average? Moderate Moderate Severe How often have you been bothered by emotional problems such as feeling anxious, depressed or irritable? Sometimes Often Often PROMIS Adult Short Form-Global Health Score (Physical) 44.9 (Good) 34.9 (Poor) 37.4 (Fair) PROMIS Adult Short Form-Global Health Score (Mental) 38.8 (Fair) Incomplete 33.8 (Fair) Depression Screening 08/06/2015 08/18/2020 04/08/2021 PHQ-2 Score 0 3 3 PHQ-9 Score - 9 10 YULIA-2 Total Score - 2 - SLEEP APNEA SCORE 04/30/2022 Probability of moderate-severe sleep apnea (%) SAPS V2 20 (Sleep study not recommended) No flowsheet data found. No flowsheet data found. I spent a total of 45 minutes on the date of the service which included preparing to see the patient, [id number] patient care, completing clinical documentation, obtaining and/or reviewing separately obtained history, performing a medically appropriate examination, counseling and educating the patient/family/caregiver, ordering medications, tests, or procedures, communicating with other HCPs (not separately reported), independently interpreting results (not separately reported), and communicating results to the patient/family/caregiver. Aida Hadley MD documented in this encounter [facility] 04-30-2022 Miscellaneous Notes Call from patient requesting refill. Requested Prescriptions Pending Prescriptions Disp Refills losartan (COZAAR) 100 mg tablet 90 tablet 3 Sig: Take 1 tablet by mouth once daily. atenolol (TENORMIN) 25 mg tablet 90 tablet 3 Sig: Take 1 tablet by mouth once daily. Patient last seen 06/18 Leatha Morrell ADM documented in this encounter [facility] 04-01-2022 History of Present illness Narrative Cuba Marti MD Department of Orthopaedics Orthopaedics [address] [facility] [address] Dept: [phone] Dept Apr 01, 2022 CHIEF COMPLAINT: New and Pain of the Right Wrist (Ganglion cyst) HPI Patient presents with: Right Wrist - New, Pain: Ganglion cyst AMB ROOMING INTAKE FLOWSHEET DATA Pain Pain Level: 5 Pain Location: Wrist-Right; pain radiates to fingers and up R arm Description: Burning, Shooting, Tingling Duration Amount of Time: 3 Duration Units: Weeks Frequency: Continuous ASSESSMENT: M67.40 Ganglion cyst M54.2 Cervicalgia PLAN: Although a bit concerned about ganglion on her wrist, this would not correlate I do not believe to some of the [id number] that she is feeling in the arm. I suspect that may be more radicular in nature. I would consider either an anti-inflammatory or some physical therapy for the cervical spine. The localized ganglion can be managed either with a ultrasound-guided aspiration or surgical intervention if she felt necessary. FOLLOW UP INSTRUCTIONS: As needed Ms. Itzel Soriano was advised as to contrast therapies and/or to take analgesics/anti-inflammatories as needed and all contraindications were reviewed. OBJECTIVE: Ms. Itzel Soriano is a pleasant 56 year old in no apparent distress. Gen:LMP 03/25/2022 nl development, non obese, no deformities ENT: Normocephalic, normal hearing, moist mucosa CV: Pulses:Radial= 2+ and symmetric, capillary refill < 2 secs, no peripheral edema/varicosities Skin: no rash, bruising or lesions. Good turgor. Psych: cooperative and appropriate, alert and oriented x 3, good mood and affect. Musculoskeletal: Focal swelling at the wrist consistent with ganglion. Nontender. Slightly mobile. Good range of motion at the wrist. IMAGING: Deferred today Supporting Subjective Information Below: Past Medical History: PAST MEDICAL HISTORY Diagnosis Date Aortic root dilation (HCC) 4.1 cm Cervical radiculopathy 04/03/2020 Cervical spondylosis without myelopathy 04/03/2020 Chronic mixed headache syndrome 10/31/2020 Family history of Marfan syndrome H/O alopecia areata LIPOMA OTHER SKIN & SUBCUTANEOUS(Left back) 01/20/2005 Major depressive disorder, single episode, mild (HCC) 2006 Marfan's syndrome Lens dislocation and aortic root dilation Past Surgical History: PAST SURGICAL HISTORY Procedure Laterality Date CATARACT SURGERY, COMPLEX Right 05/15/1992 CLEAR LENSECTOMY Left 03/24/2001 Left Lensectomy and anterior Chamber IOL Placement- Performed by Dr. Roberto Lucero CLEAR LENSECTOMY Right 09/19/2013 Lensectomy with Anterior Chamber IOL Placement- Performed by Dr. Jomar Lucero COLONOSCOPY SCREENING 01/16/2019 [facility]. Negative. Repeat 10 years. EXCISION TUMOR SOFT TISSUE BACK/FLANK SUBQ <3CM 01/27/2007 left scapular FNA WITH IMAGING Left 01/10/2015 U/S FNA left breast 3 Oclock LAPS ABD PRTM&OMENTUM DX W/WO SPEC BR/WA SPX 1981 Laparoscopy LASER IRIDOTOMY,IRIDECTOMY, ONE EYE Right 05/16/1992 LASER IRIDOTOMY,IRIDECTOMY, ONE EYE Left 03/24/2001 RMVL SEC MEMBRANOUS CTRC CORNEO-SCLL SCTJ Bilateral Insert lens prosthesis RPR 1ST INGUN HRNA AGE 5 YRS/> REDUCIBLE 1996 Hernia repair, inguinal Family History: FAMILY HISTORY Problem Relation Age of Onset Heart Mother Aortic disection (Marfan's syndrome) Lipids Mother other (Marfans) Mother Heart Father CAD and Heart failure Lipids Father Hypertension Father Heart Sister Cataract Sister Detached Retina Sister Cataract Sister Cataract Sister Blindness Sister other (Marfan's ) Sister Cataract Brother other (Aortic dissection) Brother Cataract Brother other (Aortic aneurysms) Brother Breast Cancer Paternal Grandmother BREAST Diabetes Paternal Grandmother Social History: Social History Tobacco Use Smoking status: Former Packs/day: 0.20 Years: 25.00 Pack years: 5.00 Types: Cigarettes Start date: 01/07/1985 Quit date: 02/29/2008 Years since quittin.1 Smokeless tobacco: Never Vaping Use Vaping Use: Never used Substance Use Topics Alcohol use: No Drug use: No Medications: Current Outpatient Medications Medication Sig losartan (COZAAR) 100 mg tablet TAKE 1 TABLET BY MOUTH ONCE DAILY atenolol (TENORMIN) 25 mg tablet TAKE 1 TABLET BY MOUTH ONCE DAILY aspirin, enteric coated (ADULT LOW DOSE ASPIRIN) 81 mg EC tablet Take 1 tablet by mouth once daily. DULoxetine (CYMBALTA) 20 mg capsule Take 1 capsule by mouth once daily. (Patient not taking: Reported on 04/01/2022) No current facility-administered medications for this visit. Allergies: Baclofen, Cipro [Ciprofloxacin], Gabapentin, Macrobid [Nitrofurantoin Monohyd/M-Cryst], Sulfa (Sulfonamide Antibiotics), and Tramadol ROS: General (negative for fatigue, malaise, weight loss/gain) HEENT (negative for headache, earache, recent vision changes, sinus pain, sore throat) Respiratory (no recent shortness of breath, hemoptysis) CV (negative for chest tightness, palpitations) Musculoskeletal (see HPI) Psych (no depression, anxiety) REFERRING PHYSICIAN: Consultation requested by Nohemy Davis for an opinion regarding wrist cyst. My final recommendations will be communicated back to the requesting physician by way of shared Medical record or letter to requesting physician via US mail. Nohemy Davis [address] [phone] Lenny Dumas MD [address] [phone] Cuba Marti MD documented in this encounter [facility] 03-31-2022 History of Present illness Narrative Images from the original note were not included. SUBJECTIVE Itzel Soriano is a 56 year old female here today for a check up on her medical problems. Chief Complaint Patient presents with: wrist cyst: on right wrist have noticed a cyst for about 6 weeks but last two weeks has had tingling in arm up into neck with numbness and burning sensation Consult: requesting referral for insurance to see cardiology, GI, psychiatry, and neurology Hypertension: in middle of night of 138/80 and bed shaking until calms down HPI Itzel Soriano is a 56 year old female who presents today with several concerns. She notes concerns of cyst to right wrist worsening. Has had this for a few months. Worsening symptoms of pins and needle type sensation in to the arm. Getting more bothersome. She is right hand dominant. She notes that she gets the pins and needle type feeling when she pushes on the cyst. She reports some more fpc issues that seem to occur on the right side of her body. Issues with GERD primarily on the right, seeing GI, Dr. Greene. Also has had a prior MRI in 2019 that showed the cervical spine with multilevel degenerative changes, right disc herniation at C6-7 and c7 nerve impingement. She would like to get an up to date MRI, consider trying acupuncture. Also gets headaches, primarily on the right. Would like to see neuro. Needs a cardiology referral to stay with her current dragger due to a history of aortic root dilation and Marfan's. Has been noticing issues with anxiety and blood pressure at night. 130/80's, breathing and calms self and comes down, shaking stops. Thinks this might be anxiety related to right arm pain. Prozac in the past for depression. Her medications were reviewed today and her list is now up to date. Medications Current Outpatient Medications Medication Sig losartan (COZAAR) 100 mg tablet TAKE 1 TABLET BY MOUTH ONCE DAILY atenolol (TENORMIN) 25 mg tablet TAKE 1 TABLET BY MOUTH ONCE DAILY aspirin, enteric coated (ADULT LOW DOSE ASPIRIN) 81 mg EC tablet Take 1 tablet by mouth once daily. DULoxetine (CYMBALTA) 20 mg capsule Take 1 capsule by mouth once daily. No current facility-administered medications for this visit. ALLERGIES Allergen Reactions Baclofen GI Upset Cipro [Ciprofloxaci* Hives, Swelling Gabapentin Intolerance Macrobid [Nitrofura* Hives, Swelling Sulfa (Sulfonamide * Hives, Swelling Tramadol Other: See Comments when taken with Baclofen ACTIVE PROBLEM LIST Adnexal Mass - 04/20/2021 Liver Cyst - 04/20/2021 Depression With Anxiety - 04/08/2021 Chronic Mixed Headache Syndrome - 10/31/2020 Obesity, Class I, Bmi 30-34.9 - 10/31/2020 Anxiety - 10/31/2020 Cervical Radiculopathy - 04/03/2020 Family History of Marfan Syndrome Aortic Root Dilation (Hcc) Comment: 4.1 cm Marfan's Syndrome Comment: Lens dislocation and aortic root dilation Social History Tobacco Use Smoking status: Former Packs/day: 0.20 Years: 25.00 Pack years: 5.00 Types: Cigarettes Start date: 01/07/1985 Quit date: 02/29/2008 Years since quittin.0 Smokeless tobacco: Never Vaping Use Vaping Use: Never used Substance Use Topics Alcohol use: No Drug use: No Review of Systems Respiratory: Negative. Cardiovascular: Negative. Musculoskeletal: Positive for back pain and neck pain. Negative for arthralgias, myalgias and neck stiffness. Neurological: Positive for numbness. Negative for weakness. Psychiatric/Behavioral: Positive for sleep disturbance. Negative for dysphoric mood, self-injury and suicidal ideas. The patient is nervous/anxious. OBJECTIVE BP 108/76 Pulse 61 Wt 204 lb (92.5kg) SpO2 98% LMP 03/25/2022 Physical Exam Vitals and nursing note reviewed. Constitutional: General: She is awake. She is not in acute distress. Appearance: Normal appearance. She is well-developed and well-groomed. She is not ill-appearing, toxic-appearing or diaphoretic. HENT: Head: Normocephalic. Right Ear: External ear normal. Left Ear: External ear normal. Nose: Nose normal. Eyes: General: Vision grossly intact. Conjunctiva/sclera: Conjunctivae normal. Pupils: Pupils are equal, round, and reactive to light. Neck: Vascular: No JVD. Trachea: Trachea normal. Cardiovascular: Rate and Rhythm: Normal rate and regular rhythm. Pulses: Normal pulses. Heart sounds: Normal heart sounds. No murmur heard. Pulmonary: Effort: Pulmonary effort is normal. No accessory muscle usage, prolonged expiration or respiratory distress. Breath sounds: Normal breath sounds. Musculoskeletal: Right shoulder: Normal. Left shoulder: Normal. Right upper arm: Normal. Left upper arm: Normal. Arms: Cervical back: Neck supple. Comments: Right arm strength equal to left arm, 5/5. Skin: General: Skin is warm and dry. Capillary Refill: Capillary refill takes less than 2 seconds. Neurological: General: No focal deficit present. Mental Status: She is alert and oriented to person, place, and time. Mental status is at baseline. Psychiatric: Attention and Perception: Attention and perception normal. Mood and Affect: Mood and affect normal. Speech: Speech normal. Behavior: Behavior normal. Behavior is cooperative. Thought Content: Thought content normal. Cognition and Memory: Cognition and memory normal. Judgment: Judgment normal. ASSESSMENT/PLAN: 1. Ganglion cyst - ICD9: 727.43, ICD10: M67.40 (primary diagnosis) Refer to ortho - CONSULT TO ORTHOPAEDICS 2. Anxiety - ICD9: 300.00, ICD10: F41.9 Would like to do talk therapy, also ok with starting Cymbalta, may help pain too. - CONSULT TO PSYCHIATRY - DULOXETINE 20 MG CAPSULE,DELAYED RELEASE 3. Cervicalgia - ICD9: 723.1, ICD10: M54.2 - CONSULT TO ORTHOPAEDICS - CONSULT TO NEUROLOGY - MRI CERVICAL SPINE WO IVCON - CONSULT FOR ACUPUNCTURE 4. Cervical disc herniation - ICD9: 722.0, ICD10: M50.20 - MRI CERVICAL SPINE WO IVCON 5. Cervical nerve root impingement - ICD9: 723.4, ICD10: G54.2 - MRI CERVICAL SPINE WO IVCON 6. Cervical radiculopathy - ICD9: 723.4, ICD10: M54.12 - MRI CERVICAL SPINE WO IVCON - DULOXETINE 20 MG CAPSULE,DELAYED RELEASE - CONSULT FOR ACUPUNCTURE 7. Chronic mixed headache syndrome - ICD9: 339.89, ICD10: G44.89 - CONSULT TO NEUROLOGY - CONSULT FOR ACUPUNCTURE 8. Gastroesophageal reflux disease without esophagitis - ICD9: 530.81, ICD10: K21.9 Seeing MIKAELA Rutledge soon - CONSULT TO GASTROENTEROLOGY 9. Marfan's syndrome - ICD9: 759.82, ICD10: Q87.40 - CONSULT TO CARDIOLOGY - CONSULT TO NEUROLOGY 10. Aortic root dilation (HCC) - ICD9: 447.71, ICD10: I77.810 - CONSULT TO CARDIOLOGY 11. Encounter for therapeutic drug monitoring - ICD9: V58.83, ICD10: Z51.81 - CBC - COMP METABOLIC PANEL 12. Screening for lipid disorders - ICD9: V77.91, ICD10: Z13.220 - LIPID PANEL BASIC Portions of this note have been entered by ancillary staff. I have reviewed and when necessary edited, so that they are an adequate record of my encounter with this patient Please note that parts of this document were created using voice recognition software and therefore may contain grammatical errors. Patient verbalizes understanding of instructions from today's visit and in agreement with treatment plan. Questions answered. Agrees to call the office if questions, concerns of issues with acute symptoms not improving or if they worsen. Return if symptoms worsen or fail to improve, for Keep next scheduled appointment.. Nohemy Davis APRN-ZOIE documented in this encounter [facility] 03-16-2022 History of Present illness Narrative Images from the original note were not included. SUBJECTIVE Itzel Soriano is a 56 year old female here today for acute concerns. Chief Complaint Patient presents with: UTI: symptoms started about 3 weeks ago tried treating it OTC with cranberry and zinc with no relief Ganglion Cyst: right wrist HPI Itzel Soriano is an 56 year old female established patient of Dr. Dumas who presents today acutely for possible UTI. Denies fever, or chills. The onset was about 2.5 weeks ago. The symptoms have been constant. Aggravating factors she thinks are that she used a different type of wash while in the shower and that irritated things. It has been alleviated by nothing, has tried several OTCs, increased fluids. Associated symptoms include burning, frequency. Denies odor to urine, back pain, nausea, vomiting. Urine is yellow in color, no blood is visible. Has a history of previous UTI's. Also has a cyst on her right wrist. Has been there several weeks. Sometimes will get a pins and needle sensation up the arm but otherwise not really bothersome. Her medications were reviewed today and her list is now up to date. Medications Current Outpatient Medications Medication Sig losartan (COZAAR) 100 mg tablet TAKE 1 TABLET BY MOUTH ONCE DAILY atenolol (TENORMIN) 25 mg tablet TAKE 1 TABLET BY MOUTH ONCE DAILY aspirin, enteric coated (ADULT LOW DOSE ASPIRIN) 81 mg EC tablet Take 1 tablet by mouth once daily. cephALEXin (KEFLEX) 500 mg capsule Take 1 capsule by mouth three times daily for 10 days. No current facility-administered medications for this visit. ALLERGIES Allergen Reactions Baclofen GI Upset Cipro [Ciprofloxaci* Hives, Swelling Gabapentin Intolerance Macrobid [Nitrofura* Hives, Swelling Sulfa (Sulfonamide * Hives, Swelling Tramadol Other: See Comments when taken with Baclofen ACTIVE PROBLEM LIST Adnexal Mass - 04/20/2021 Liver Cyst - 04/20/2021 Depression With Anxiety - 04/08/2021 Chronic Mixed Headache Syndrome - 10/31/2020 Obesity, Class I, Bmi 30-34.9 - 10/31/2020 Anxiety - 10/31/2020 Cervical Radiculopathy - 04/03/2020 Family History of Marfan Syndrome Aortic Root Dilation (Hcc) Comment: 4.1 cm Marfan's Syndrome Comment: Lens dislocation and aortic root dilation Social History Tobacco Use Smoking status: Former Packs/day: 0.20 Years: 25.00 Pack years: 5.00 Types: Cigarettes Start date: 01/07/1985 Quit date: 02/29/2008 Years since quittin.0 Smokeless tobacco: Never Vaping Use Vaping Use: Never used Substance Use Topics Alcohol use: No Drug use: No Review of Systems Constitutional: Negative. Respiratory: Negative. Cardiovascular: Negative. Genitourinary: Positive for dysuria and frequency. Negative for difficulty urinating, flank pain and hematuria. OBJECTIVE BP 116/68 Pulse 77 Temp (Src) 98.5 (Temporal Artery) Wt 204 lb (92.5kg) SpO2 98% LMP 03/02/2022 Physical Exam Vitals and nursing note reviewed. Constitutional: General: She is awake. She is not in acute distress. Appearance: Normal appearance. She is well-developed and well-groomed. She is not ill-appearing, toxic-appearing or diaphoretic. HENT: Head: Normocephalic. Right Ear: External ear normal. Left Ear: External ear normal. Nose: Nose normal. Eyes: General: Vision grossly intact. Conjunctiva/sclera: Conjunctivae normal. Pupils: Pupils are equal, round, and reactive to light. Neck: Vascular: No JVD. Trachea: Trachea normal. Pulmonary: Effort: Pulmonary effort is normal. No accessory muscle usage, prolonged expiration or respiratory distress. Musculoskeletal: Arms: Cervical back: Neck supple. Comments: No erythema, increased warmth or tenderness on palpation Neurological: General: No focal deficit present. Mental Status: She is alert and oriented to person, place, and time. Mental status is at baseline. Psychiatric: Attention and Perception: Attention and perception normal. Mood and Affect: Mood and affect normal. Speech: Speech normal. Behavior: Behavior normal. Behavior is cooperative. Thought Content: Thought content normal. Cognition and Memory: Cognition and memory normal. Judgment: Judgment normal. ASSESSMENT/PLAN: 1. Acute cystitis with hematuria - ICD9: 595.0, ICD10: N30.01 (primary diagnosis) Urine dip positive for blood and leukocytes. Can culture but will start Keflex. Repeat urine dip at follow up to check if hematuria resolved. - UA DIP B/O - CEPHALEXIN 500 MG CAPSULE - URINE CULTURE 2. Urinary frequency - ICD9: 788.41, ICD10: R35.0 - Patient education for prevention given - UA DIP B/O 3. Ganglion cyst - ICD9: 727.43, ICD10: M67.40 Monitor, if bothersome ultrasound. Portions of this note have been entered by ancillary staff. I have reviewed and when necessary edited, so that they are an adequate record of my encounter with this patient Please note that parts of this document were created using voice recognition software and therefore may contain grammatical errors. Patient verbalizes understanding of instructions from today's visit and in agreement with treatment plan. Questions answered. Agrees to call the office if questions, concerns of issues with acute symptoms not improving or if they worsen. Return if symptoms worsen or fail to improve, for Keep next scheduled appointment.. Nohemy Davis APRN-ZOIE documented in this encounter [facility] 03-16-2022 Instructions Lor Martin LPN - 03/16/2022 9:28 AM EST Images from the original note were not included. Urinary Problem-When to Seek Help? Symptoms of a urinary problem may lead to a bladder infection. Women are at greater risk of a urinary tract infection than are men. Most urinary tract infections in women are caused by bacteria and involve the lower urinary tract including the bladder and urethra. Symptoms: Pain or burning when passing urine, urgency, frequency, blood in the urine, difficult emptying your bladder, and lower abdominal fullness or pressure. Common Causes: Sexual intercourse, menopause, constipation, uncontrolled diabetes, dehydration and feminine products such as tampons, and kidney stones. When to Get Help: Seek medical attention if you get frequent bladder infections, urinary concerns such as leakage, blood in the urine or frequent need to urinate. You may be recommended to get help from a specialist, such as a urologist. Diagnosis & Treatment: Lab testing may include: urinalysis, and urine culture that can be collected in the lab or walk-in clinic. Most bladder infections can easily be treated. A physician, nurse practitioner or physician physical therapist assistant may treat with a short course of an antibiotic. Delaying treatment can lead to worsening symptoms, like a kidney infection. Self-Care: Avoid a full bladder, bubble baths, bath oils, food and beverages that may irritate the bladder such as caffeine. Avoid spermicide foam and diaphragms Void before and after sexual intercourse Wipe front to back after using the bathroom. Stay hydrated Stop Smoking Follow-up Care: Follow up testing is not needed in healthy young women if symptoms resolve. documented in this encounter [facility] 02-15-[address] - 02/15/2022 2:12 PM EST Add in regular exercise, start with 30 min three days per week All meals and snacks at the dinner table; minimize distractions, no TV while eating. Make meals last at least 20 min, chew each bite of food 20 x per bite.Portion out all foods, never eat out of container. Become more mindful of meal: Enjoy flavors, textures etc. Use hunger/fullness scale. All beverages calorie free and sugar free Include protein each meal Try Fairlife milk in cereal Plan a healthy evening snack: 6 Triscuit, couple cheese cubes or half avocado, veggies and couple fruit No eating after evening snack Increase water intake to 64 oz daily documented in this encounter [facility] 02-15-2022 History of Present illness Narrative Nutrition Therapy Initial Assessment Nutrition Diagnosis: Overweight/obesity, related to, excess energy intake and physical inactivity, as evidenced by BMI above normative standard for age and gender. RECOMMENDED MALNUTRITION DIAGNOSIS: NO MALNUTRITION IDENTIFIED NUTRITION CARE PLAN Nutrition Intervention 02/15/2022: modify type and amount of food or beverage Add in regular exercise, start with 30 min three days per week All meals and snacks at the dinner table; minimize distractions, no TV while eating. Make meals last at least 20 min, chew each bite of food 20 x per bite.Portion out all foods, never eat out of container. Become more mindful of meal: Enjoy flavors, textures etc. Use hunger/fullness scale. All beverages calorie free and sugar free Include protein each meal Try Fairlife milk in cereal Plan a healthy evening snack: 6 Triscuit, couple cheese cubes or half avocado, veggies and couple fruit No eating after evening snack Increase water intake to 64 oz daily Nutrition Monitoring & Evaluation: 1-2 lb weight loss per week Need for Follow up: 4-6 weeks Patient presents for initial MNT as relates to class 1 obesity. Other medical issues Marfan's syndrome, suspected GERD. Has success in the past with Noom, considering OA . Notes was fit 30 years ago. Highest weight current weight, lowest adult weight 117 lbs; goal weight 130 lbs. Intake noted for skipped meals, large portions and double portions, binge behavours . Meals at the table, sneak eat while snacking or after spouse in bed . Eats quickly and eats ice all day long. No regular exercise, does have gym memberships. Patient's symptoms are: Weight Concerns: failure to lose weight Diet History: wake 6:30-7 Breakfast - skip, occ coffee with milk , occ apple or other fruit Snack - not usually Lunch - noon-today had toatsed cheese with ham and turkey and cabbage - sub size; re gingeraljero or Pepper and half, and half peanut brittle bar Snack - If can find something : crackers, chips, toast, chocolately Dinner - 6 cereal such as cheerios or raisin bran (half box)/2% milk; Snack - while doing dishes, sneak crackers n cheese (large amount); Beverages - coffee, water, milk reg soda Alcohol- no Vitamins/Supplements - 1-2 x per week high dose of D3, B complex, magnesium 200 mg, 2-3 K vi C, 50 mg zinc, 1200 caclium/magnesium/zinc Half loaf bread, pound of pasta To bed 9- midnite Will snack on ice cubes Activity: Activities of Daily 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 Resting Metabolic Rate: 1561 Malnutrition Screening Significant unintentional weight loss? No Eating less than 75% of usual intake for more than 2 weeks? No Potential Signs of Inflammation: no identifiable sources Education Materials Provided: Healthy Plate READINESS TO LEARN Cognitive ability: Alert and oriented Motivation to learn: Interested Family support: Unable to assess - Family not present Instruction provided to: Patient Patient learns best by: Individual Instruction Factors affecting learning: None Physical limitations affecting learning: None Referred/Supervised by: Toni AHUJA Billing Type: Initial Assess/15 min 3 units SIGNATURE: Maylin Bolden RD PATIENT NAME: Itzel Soriano DATE: February 15, 2022 TIME: 1:39 PM documented in this encounter [facility] 12-25-2021 History of Present illness Narrative POPULATION HEALTH NAVIGATION OUTREACH Action/FYI Outcome: 1st attempt- Left Voice Mail for patient to return my call to schedule. 2nd attempt- BangeeHART message sent. [facility] C[facility] GAPS: Annual Exam/PCP visit/ BP - last visit 05/22/2021 -///annual due 04/08/2022 Flu Shot Pt identified by name and : NO Outreach Outcome/Action Unable to reach patient: Left message NoiseFreehart message sent Did you use a PCP flex slot to schedule this appointment? N/A Reason for Outreach Care Gap or Scheduling/Wellness visits Payer: [facility]or: [facility] / Plan: [employer] AARP MEDICARE HMO / Product Type: HMO / Care Gap Reviewed:: Annual Wellness visit Flu vaccine Reminder: Reminder note to check Health Maintenance for items below Health Maintenance items due: HIV SCREENING Never done DTAP,TDAP,TD(2 - Td or Tdap) due on 02/28/2019 INFLUENZA(1) due on 10/29/2021 Message Sent to Practice: No Navigation Signature: Marleen Corcoran MA December 25, 2021 3:42 PM documented in this encounter [facility] 12-14-2021 Miscellaneous Notes Patient requesting mammogram order be faxed to [facility]. Faxed as requested. Tawnya Nogueira RN documented in this encounter [facility] 12-07-2021 Miscellaneous Notes Patient given results and verbalized understanding of instructions given. Edel Ingram ----- Message from Shellie Leyva APRN.ZOIE sent at 12/07/2021 7:16 AM EDT ----- Please advise patient: Urine culture did not show clear evidence of infection. She may continue to take antibiotic if it has been helpful. If not improving, recommend follow up with PCP. Shellie Leyva CNP documented in this encounter [facility] 12-05-2021 Miscellaneous Notes Addended by: BRIANNA TIJERINA on: 12/05/2021 10:47 AM Modules accepted: Orders documented in this encounter [facility] 12-05-2021 Instructions Brianna Tijerina APRN.CNP - 12/05/2021 8:25 AM EDT Images from the original note were not included. Urinary Problem-When to Seek Help? Symptoms of a urinary problem may lead to a bladder infection. Women are at greater risk of a urinary tract infection than are men. Most urinary tract infections in women are caused by bacteria and involve the lower urinary tract including the bladder and urethra. Symptoms: Pain or burning when passing urine, urgency, frequency, blood in the urine, difficult emptying your bladder, and lower abdominal fullness or pressure. Common Causes: Sexual intercourse, menopause, constipation, uncontrolled diabetes, dehydration and feminine products such as tampons, and kidney stones. When to Get Help: Seek medical attention if you get frequent bladder infections, urinary concerns such as leakage, blood in the urine or frequent need to urinate. You may be recommended to get help from a specialist, such as a urologist. Diagnosis & Treatment: Lab testing may include: urinalysis, and urine culture that can be collected in the lab or walk-in clinic. Most bladder infections can easily be treated. A physician, nurse practitioner or physician physical therapist assistant may treat with a short course of an antibiotic. Delaying treatment can lead to worsening symptoms, like a kidney infection. Self-Care: Avoid a full bladder, bubble baths, bath oils, food and beverages that may irritate the bladder such as caffeine. Avoid spermicide foam and diaphragms Void before and after sexual intercourse Wipe front to back after using the bathroom. Stay hydrated Stop Smoking Follow-up Care: Follow up testing is not needed in healthy young women if symptoms resolve. documented in this encounter [facility] 12-05-2021 History of Present illness Narrative This note was created using Weekend-a-gogoriter. Subjective Itzel Soriano is a 56 year old female. 56 year old female with PMH Marfans, depression, anxiety, and arotic root dilation with concerns for UTI. Acute onset 10 days ago +frequency +burning +lower back pain Denies N/V/D Denies skin rash or lesions. Denies fever or chills. Denies vaginal discharge. Denies vaginal bleeding Denies concerns for sexually transmitted disease. Increased water. Vitamin C and zinc Utilized cranberry pills The history is provided by the patient. No buffer inflated pad was used. UTI This is a new problem. The current episode started more than 1 week ago. The problem occurs every urination. The problem has not changed since onset.The quality of the pain is described as burning. The pain is at a severity of 5/10. The pain is moderate. There has been no fever. She is Sexually active. Associated symptoms include frequency. Pertinent negatives include no chills, no sweats, no nausea, no vomiting, no discharge, no hematuria, no hesitancy, no possible , no urgency and no flank pain. She has tried increased fluids (increasing fluids. Vitamin C and Zinc) for the symptoms. Her past medical history does not include kidney stones, single kidney, urological procedure, recurrent UTIs, urinary stasis or catheterization. PAST MEDICAL HISTORY Diagnosis Date Aortic root dilation (HCC) 4.1 cm Cervical radiculopathy 04/03/2020 Cervical spondylosis without myelopathy 04/03/2020 Chronic mixed headache syndrome 10/31/2020 Family history of Marfan syndrome H/O alopecia areata LIPOMA OTHER SKIN & SUBCUTANEOUS(Left back) 01/20/2005 Major depressive disorder, single episode, mild (HCC) 2006 Marfan's syndrome Lens dislocation and aortic root dilation PAST SURGICAL HISTORY Procedure Laterality Date CATARACT SURGERY, COMPLEX Right 05/15/1992 CLEAR LENSECTOMY Left 03/24/2001 Left Lensectomy and anterior Chamber IOL Placement- Performed by Dr. Roberto Lucero CLEAR LENSECTOMY Right 09/19/2013 Lensectomy with Anterior Chamber IOL Placement- Performed by Dr. Jomar Lucero COLONOSCOPY SCREENING 01/16/2019 [facility]. Negative. Repeat 10 years. EXCISION TUMOR SOFT TISSUE BACK/FLANK SUBQ <3CM 01/27/2007 left scapular FNA WITH IMAGING Left 01/10/2015 U/S FNA left breast 3 Oclock LAPS ABD PRTM&OMENTUM DX W/WO SPEC BR/WA SPX 1981 Laparoscopy LASER IRIDOTOMY,IRIDECTOMY, ONE EYE Right 05/16/1992 LASER IRIDOTOMY,IRIDECTOMY, ONE EYE Left 03/24/2001 RMVL SEC MEMBRANOUS CTRC CORNEO-SCLL SCTJ Bilateral Insert lens prosthesis RPR 1ST INGUN HRNA AGE 5 YRS/> REDUCIBLE 1996 Hernia repair, inguinal ALLERGIES Baclofen, Cipro [Ciprofloxacin], Gabapentin, Macrobid [Nitrofurantoin Monohyd/M-Cryst], Sulfa (Sulfonamide Antibiotics), and Tramadol MEDICATIONS losartan (COZAAR) 100 mg tablet^TAKE 1 TABLET BY MOUTH ONCE DAILY^Disp: 90 tablet^Rfl: 3 atenolol (TENORMIN) 25 mg tablet^TAKE 1 TABLET BY MOUTH ONCE DAILY^Disp: 90 tablet^Rfl: 3 aspirin, enteric coated (ADULT LOW DOSE ASPIRIN) 81 mg EC tablet^Take 1 tablet by mouth once daily.^Disp: ^Rfl: 0 cephALEXin (KEFLEX) 500 mg capsule^Take 1 capsule by mouth four times daily for 10 days.^Disp: 40 capsule^Rfl: 0 FAMILY HISTORY Problem Relation Age of Onset Heart Mother Aortic disection (Marfan's syndrome) Lipids Mother other (Marfans) Mother Heart Father CAD and Heart failure Lipids Father Hypertension Father Heart Sister Cataract Sister Detached Retina Sister Cataract Sister Cataract Sister Blindness Sister other (Marfan's ) Sister Cataract Brother other (Aortic dissection) Brother Cataract Brother other (Aortic aneurysms) Brother Breast Cancer Paternal Grandmother BREAST Diabetes Paternal Grandmother Social History Tobacco Use Smoking status: Former Packs/day: 0.20 Years: 25.00 Pack years: 5.00 Types: Cigarettes Start date: 01/07/1985 Quit date: 02/29/2008 Years since quittin.7 Smokeless tobacco: Never Vaping Use Vaping Use: Never used Substance Use Topics Alcohol use: No Drug use: No Review of Systems Constitutional: Negative for chills. Eyes: Negative for pain, discharge, redness and itching. Respiratory: Negative for apnea, cough, choking and chest tightness. Cardiovascular: Negative for chest pain, palpitations and leg swelling. Gastrointestinal: Negative for abdominal pain, diarrhea, nausea and vomiting. Genitourinary: Positive for dysuria and frequency. Negative for flank pain, hematuria, hesitancy and urgency. Musculoskeletal: Negative for arthralgias, back pain and gait problem. Skin: Negative for color change, pallor, rash and wound. Allergic/Immunologic: Positive for immunocompromised state. Negative for environmental allergies and food allergies. Neurological: Negative for dizziness, facial asymmetry, light-headedness and headaches. Hematological: Negative for adenopathy. Does not bruise/bleed easily. Psychiatric/Behavioral: Negative for agitation and behavioral problems. Objective BP 126/72 Pulse 64 Temp 36.1 C (96.9 F) Resp 16 Wt 92.1 kg (203 lb) LMP 05/14/2021 SpO2 97% BMI 31.79 kg/m Physical Exam Vitals and nursing note reviewed. Constitutional: General: She is not in acute distress. Appearance: Normal appearance. She is normal weight. She is not ill-appearing, toxic-appearing or diaphoretic. HENT: Head: Normocephalic and atraumatic. Right Ear: Ear canal and external ear normal. Left Ear: Ear canal and external ear normal. Nose: Nose normal. No congestion or rhinorrhea. Mouth/Throat: Mouth: Mucous membranes are moist. Pharynx: No oropharyngeal exudate or posterior oropharyngeal erythema. Eyes: General: Right eye: No discharge. Left eye: No discharge. Extraocular Movements: Extraocular movements intact. Conjunctiva/sclera: Conjunctivae normal. Pupils: Pupils are equal, round, and reactive to light. Cardiovascular: Rate and Rhythm: Normal rate and regular rhythm. Pulses: Normal pulses. Heart sounds: Normal heart sounds. No murmur heard. No friction rub. Pulmonary: Effort: Pulmonary effort is normal. No respiratory distress. Breath sounds: Normal breath sounds. No stridor. No wheezing, rhonchi or rales. Chest: Chest wall: No tenderness. Abdominal: General: Abdomen is flat. There is no distension. Palpations: Abdomen is soft. There is no mass. Tenderness: There is no abdominal tenderness. There is no right CVA tenderness, left CVA tenderness, guarding or rebound. Hernia: No hernia is present. Musculoskeletal: General: No swelling, tenderness, deformity or signs of injury. Normal range of motion. Cervical back: Normal range of motion and neck supple. No rigidity. Right lower leg: No edema. Left lower leg: No edema. Lymphadenopathy: Cervical: No cervical adenopathy. Skin: General: Skin is warm and dry. Capillary Refill: Capillary refill takes less than 2 seconds. Coloration: Skin is not jaundiced or pale. Findings: No bruising, erythema, lesion or rash. Neurological: General: No focal deficit present. Mental Status: She is alert and oriented to person, place, and time. Cranial Nerves: No cranial nerve deficit. Sensory: No sensory deficit. Motor: No weakness. Coordination: Coordination normal. Gait: Gait normal. Psychiatric: Mood and Affect: Mood normal. Behavior: Behavior normal. Thought Content: Thought content normal. Judgment: Judgment normal. Assessment and Plan ASSESSMENT/PLAN: 1. Urinary frequency - ICD9: 788.41, ICD10: R35.0 (primary diagnosis) acute - UA positive for dolores esterase and hematuria - Send urine for culture - Begin treatment with Keflex for 10 days (patient adament about I take 14 days and the maximum dosage) - Patient education for prevention given - UA DIP, URINE (POC) - URINE CULTURE 2. Burning with urination - ICD9: 788.1, ICD10: R30.0 acute - UA positive for dolores esterase and hematuria - Send urine for culture - Begin treatment with Keflex for 10 days - Patient education for prevention given - UA DIP, URINE (POC) - URINE CULTURE 3. Gastroesophageal reflux disease, unspecified whether esophagitis present - ICD9: 530.81, ICD10: K21.9 - Refer for GI consult per patient request. - CONSULT TO GASTROENTEROLOGY, she will call for appointment. Brianna Tijerina [email or web address].ZOIE documented in this encounter [facility] 12-03-2021 Miscellaneous Notes Ms. Agrawal can wait till September 2022 for a follow up and she can get a CTA chest (gated) at that time along with the EKG and Echocardiogram. True Mayers MD Patient saw Evelin on 11/30 and she wanted her to come back in 6 months with ECG and an echo. She would like to know if it can wait till September and she was asking for more testing because she did CT and US the last time. Please advise. documented in this encounter [facility] 11-30-2021 History of Present illness Narrative Images from the original note were not included. [facility] [place] Eliseo Duran Department of Cardiovascular Medicine SECTION OF CARDIOVASCULAR IMAGING OUTPATIENT VISIT DATE November 30, 2021 OUTPATIENT VISIT TYPE ESTABLISHED PRIMARY CARE PHYSICIAN: Aba Del Toro [address] [place] [address] REFERRING PHYSICIAN: True Mayers [address] [facility] [id number] CHIEF COMPLAINT: Follow up HISTORY OF PRESENT ILLNESS: Ms. Soriano is a 56 year old female who presents today for follow-up visit. Since her last visit, she states that she feels well and she denies any chest pain, shortness of breath, PND, orthopnea, palpitations, presyncope, syncope, dizziness, or peripheral edema. PAST CARDIAC HISTORY: She has been seen in the past for Marfan's Syndrome. She was last seen on 06/20/[address] Mayers. PAST MEDICAL HISTORY Diagnosis Date Aortic root dilation (HCC) 4.1 cm Cervical radiculopathy 04/03/2020 Cervical spondylosis without myelopathy 04/03/2020 Chronic mixed headache syndrome 10/31/2020 Family history of Marfan syndrome H/O alopecia areata LIPOMA OTHER SKIN & SUBCUTANEOUS(Left back) 01/20/2005 Major depressive disorder, single episode, mild (HCC) 2006 Marfan's syndrome Lens dislocation and aortic root dilation PAST SURGICAL HISTORY Procedure Laterality Date CATARACT SURGERY, COMPLEX Right 05/15/1992 CLEAR LENSECTOMY Left 03/24/2001 Left Lensectomy and anterior Chamber IOL Placement- Performed by Dr. Roberto Lucero CLEAR LENSECTOMY Right 09/19/2013 Lensectomy with Anterior Chamber IOL Placement- Performed by Dr. Jomar Lucero COLONOSCOPY SCREENING 01/16/2019 [facility]. Negative. Repeat 10 years. EXCISION TUMOR SOFT TISSUE BACK/FLANK SUBQ <3CM 01/27/2007 left scapular FNA WITH IMAGING Left 01/10/2015 U/S FNA left breast 3 Oclock LAPS ABD PRTM&OMENTUM DX W/WO SPEC BR/WA SPX 1981 Laparoscopy LASER IRIDOTOMY,IRIDECTOMY, ONE EYE Right 05/16/1992 LASER IRIDOTOMY,IRIDECTOMY, ONE EYE Left 03/24/2001 RMVL SEC MEMBRANOUS CTRC CORNEO-SCLL SCTJ Bilateral Insert lens prosthesis RPR 1ST INGUN HRNA AGE 5 YRS/> REDUCIBLE 1996 Hernia repair, inguinal SOCIAL HISTORY Social History Tobacco Use Smoking status: Former Packs/day: 0.20 Years: 25.00 Pack years: 5.00 Types: Cigarettes Start date: 01/07/1985 Quit date: 02/29/2008 Years since quittin.7 Smokeless tobacco: Never Vaping Use Vaping Use: Never used Substance Use Topics Alcohol use: No Drug use: No FAMILY HISTORY Problem Relation Age of Onset Heart Mother Aortic disection (Marfan's syndrome) Lipids Mother other (Marfans) Mother Heart Father CAD and Heart failure Lipids Father Hypertension Father Heart Sister Cataract Sister Detached Retina Sister Cataract Sister Cataract Sister Blindness Sister other (Marfan's ) Sister Cataract Brother other (Aortic dissection) Brother Cataract Brother other (Aortic aneurysms) Brother Breast Cancer Paternal Grandmother BREAST Diabetes Paternal Grandmother ALLERGIES: ALLERGIES Allergen Reactions Baclofen GI Upset Cipro [Ciprofloxaci* Hives, Swelling Gabapentin Intolerance Macrobid [Nitrofura* Hives, Swelling Sulfa (Sulfonamide * Hives, Swelling Tramadol Other: See Comments when taken with Baclofen MEDICATIONS: losartan (COZAAR) 100 mg tablet TAKE 1 TABLET BY MOUTH ONCE DAILY atenolol (TENORMIN) 25 mg tablet TAKE 1 TABLET BY MOUTH ONCE DAILY aspirin, enteric coated (ADULT LOW DOSE ASPIRIN) 81 mg EC tablet Take 1 tablet by mouth once daily. REVIEW OF SYSTEMS: Positive in Red GENERAL: Negative for: Weight loss or gain, Fever or Chills, Weakness and Sleep difficulties. HEENT: Negative for: Headache, Impaired Vision, Glasses, Hearing Impairment, Ringing in Ears, Nosebleeds, Poor Dental Care, Bleeding Gums and Dentures. NECK: Negative for: Swelling, Pain, Stiffness GASTROINTESTINAL: Negative for: Trouble swallowing, Heartburn, Change in bowel habits, Blood in stool, Dark black stools MUSCULOSKELETAL: Negtive for: Muscle or joint pain, stiffness, Joint swelling NEUROLOGIC/PSYCHIATRIC: Negative for: Weakness, Paralysis, Numbness, Tingling, Tremor, Nervousness or anxiety, Depressed mood, Memory loss SKIN: Negative for: Rash, Itching HEMATOLOGICAL/LYMPHATIC: Negative for: Easy bruising, Easy bleeding ENDOCRINE: Negative for: Heat or Cold Intolerance, Excessive Sweating, Frequent Urination, Frequent Thirst PHYSICAL EXAMINATION: BP 137/87 Pulse 83 Ht 170.2 cm (5' 7) Wt 92.1 kg (203 lb) LMP 05/14/2021 SpO2 98% BMI 31.79 kg/m General: Well appearing, in no acute distress, speaking in complete sentences. Skin: Warm, dry Eyes: Non-icteric sclerae Neck: no jugular venous distention, Lungs: Clear to auscultation bilaterally, no wheezing or rhonchi. Heart: Regular rhythm, no rub , no murmur Abdomen: Soft, nontender Extremities: No peripheral edema . Grade 2/4 distal pulses bilaterally. Neuro: Oriented to person, place and time, alert, cooperative CARDIOVASCULAR MEDICINE TESTING: Last EKG Result Conclusion ECG COMPLETE Collected: 11/30/2021 1:35 PM (Preliminary result) Impression: NORMAL SINUS RHYTHM NORMAL ECG Echo: 05/2020 CONCLUSIONS: - Exam indication: Evaluation of the ascending aorta w/ connective tissue disease - The left ventricle is normal in size. Left ventricular systolic function is normal. EF = 56 5% (2D biplane) - The right ventricle is normal in size. Right ventricular systolic function is normal. - The visualized aorta is dilated with a maximal dimension of 4.2 cm. - Exam was compared with the prior echocardiographic exam performed on 03/08/2018. Aortic sinus was 4.1 cm IMPRESSION: Ms. Soriano is a pleasant 56 year old female with a history of Marfan syndrome who presents today for annual follow up visit. Per echo 05/2020 aorta is dilated with a maximal dimension of 4.2 cm. Patient has anxiety but otherwise is doing well overall, today's ekg was w/o acute changes and clinical exam was unremarkable, PLAN AND RECOMMENDATIONS: Continue Atenolol and Losartan for history of Marfan's syndrome and mild aortic root dilation. Manage anxiety Diet and weight loss strategies d/w patient Follow up with Dr. Mayers in 6 months with echo, ecg I personally interviewed, confirmed and edited the above information if obtained by others. CONTACT INFORMATION: Evelin Flower, DNP, CLERK RATING Desk [id number] [place] [address] phone [phone] fax [facility] Cardiovascular Medicine, Section of Cardiac Imaging [facility] [place] documented in this encounter [facility] 10-15-2021 Miscellaneous Notes Call from pharmacy requesting refill. Requested Prescriptions Pending Prescriptions Disp Refills losartan (COZAAR) 100 mg tablet [Pharmacy Med Name: Losartan Potassium 100 MG Oral Tablet] 90 tablet 3 Sig: TAKE 1 TABLET BY MOUTH ONCE DAILY atenolol (TENORMIN) 25 mg tablet [Pharmacy Med Name: Atenolol 25 MG Oral Tablet] 90 tablet 3 Sig: TAKE 1 TABLET BY MOUTH ONCE DAILY Patient last seen 06/20 Leatha Morrell ADM documented in this encounter [facility] 08-27-2021 History of Present illness Narrative POPULATION HEALTH NAVIGATION OUTREACH Action/FYI Dear Dr. Del Toro, Our Population Health Navigation team is completing an outreach regarding open HCC gaps. This patient currently has the following open HCC gap(s) listed: I77.810 - Aortic root dilation (HCC) - [id number] Last Billed 12/13/2019
BRODIE w/PCP for an annual was on 04/08/21 The patient has declined to schedule an annual wellness or follow up visit with you at this time. If these are no longer issues, please resolve them from the problem list. Please see message below: Thank you, Lucero Lainez MA ----- Patient returned my call: Patient states that she thinks she was only to do her yearly appts with her PCP and was not told she needed a follow up as she does follow up with some other providers at [facility]. Patient thinks that her insurance only pays for her Mammogram w/[facility] every few years, she will call and check with er insurance and call back to schedule if it is yearly Advanced Directives information sent to patient in Spectropath. Pt identified by name and : YES, via phone Outreach Outcome/Action Spoke to patient or caregiver: Patient declined Advance Directives sent Did you use a PCP flex slot to schedule this appointment? N/A Message Sent to Practice: Yes Navigation Signature: Lucero Lainez MA August 27, 2021 10:09 AM POPULATION HEALTH NAVIGATION OUTREACH Action/FYI Left a message asking patient to call back to review Care Gaps Spect[employer]ath message sent to patient. Care Gap Reviewed:: Follow-up appointment Breast Cancer screening Advanced Directives Diagnosis with HCC gap left: I77.810 - Aortic root dilation (HCC) - [id number] Last Billed 12/13/2019 Pt identified by name and : NO Outreach Outcome/Action Unable to reach patient: Left message Cloudwords message sent Did you use a PCP flex slot to schedule this appointment? N/A Reason for Outreach HCC or suspected condition Payer: Payor: [facility] / Plan: [facility] MED[facility] HMO / Product Type: HMO / Care Gap Reviewed:: Follow-up appointment Breast Cancer screening Reminder: Reminder note to check Health Maintenance for items below Health Maintenance items due: HIV SCREENING Never done DTAP,TDAP,TD(2 - Td or Tdap) due on 02/28/2019 MAMMOGRAM due on 07/07/2021 Message Sent to Practice: No Navigation Signature: Lucero Lainez MA August 27, 2021 7:29 AM documented in this encounter [facility] 05-29-2021 History of Present illness Narrative Images from the original note were not included. Rheumatology CONSULTATION Referring Provider: Emily Espinoza Date of Service: 05/29/2021 Gender: female Ethnicity: White Age: [age] year old Chief Complaint: Joint Pain Last Rheumatology visit: 05/29/2021 (with Madeleine Frazier) Itzel Soriano is a 55 year old White female who presents on 05/29/2021 for in person visit for evaluation of Joint Pain. Her most recent ROSEMARIE was positive (05/25/2021). HISTORY OF PRESENT ILLNESS Patient states that back in the 90s she started developing quarter sized spots of hair loss, typically only right sided at that time. She currently has one. The hair texture is different when it comes back. She wonders if current hair loss is hormonal related as she is going through menopause. She also always had felt very achy. Describes constant muscle pain in neck, shoulders, and low back. More recently she also she had onset of left sided face swelling and couldn't see out of the left eye with lens dislocation. She is unsure what cleared up the swelling. Then a few years later she had a similar episode on the right side of her face with a normal MRI, but also had lens dislocation on the Right side requiring emergency surgery. She also state she has always had neck and back pain when she wakes up in the morning, previously she just attributed it to a bad back. 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 Then a few years ago she woke up with what she felt were stroke like symptoms and she couldn't move her R arm because of the severe pain and had a severe headache and radiating chest pain. IT lasted about 8 months. Her PCP told her it was most likely musculoskeletal in nature. She was put on gabapentin with side effects. It did alleviate itself but se still has soreness in her R arm. She recently did PT to help build back strength. Previously shoulder pain was so severe she couldn't hold a egg frying pain.. She also has neck pain and C6-C7 was out and that was causing her pain. She states prednisone/cortisone packs are her go to for pain. She has a constant headache on the Right side of her face, temporal region all the way down the back. Saw neurology for the headache and was diagnosed with migraine. Everything is right sided (hair loss) Tender Lymph nodes on Right side (armpit and groin) not swelling. Was also getting cortisone injections in her back in the 's She also feels like her R side of her throat is constricting and muscle spasms in the esophagus. Sh doesn't really have trouble swalling foods. Chewing on ice more. Also gets hot spots on top of her foot mostly right side and R leg, feels like someone put an iron/heating pad on her skin. Pain radiates from inside out. More emotional lately as well Disease History Extra-Articular Features / Comorbidities Dry eye No dry mouth Systemic Lupus Erythematosus (SLE) History Relevant to SLICC Classification Criteria - ROSEMARIE positive Relevant to New ACR and EULAR Classification Criteria - ROSEMARIE > 1:80 on human [id number] cells, or an equivalent positive test Other History Relevant to SLE - no stroke - no pre-eclampsia or eclampsia - no miscarriage - no Raynaud's - no PE - no DVT Autoimmune Disease History ROSEMARIE positive No sun sensitivity Alopecia No Raynaud's Dry eye no dry mouth No stroke No pre-eclampsia / eclampsia No miscarriage No pulmonary embolism No DVT No pleurisy or pleural effusion No pericarditis or pericardial effusion GERD Patient-Entered Data RAPID 3 Miner Activities of Daily Living No Data Dress self? - Get in and out of bed? - Walk outdoors? - Wash and dry body? - Get in and out of car? - RAPID 3 Disease Activity Weighed Score Levels: 0 - 1: Near Remission 1.3 - 2.0: Low Severity 2.3 - 4.0: Moderate Severity 4.3 - 10.0: High Severity No flowsheet data found. PROMIS Assessments PROMIS Assessments 08/18/2020 02/23/2021 Physical Health Percentile 31 % 7 % Mental Health Percentile 13 % - Pain Score 4 3 Pain Interference Percentile - 14 % Fatigue Percentile - 24 % Physical Function Percentile - 24 % PAIN EVALUATION 05/29/2021 1058 Pain Level: 4 Pain Location: multiple joints Description: Aching;Dull;Sore;Stiffness Duration Amount of Time: ongoing Frequency: Continuous Intervention/Comfort measure: Reposition;Relaxation;Heat;Medicat ion;Massage Treatment History Musculoskeletal Pain - Treatments Tried NSAIDs/Tylenol: Yes Treatment Start Date Stop Date Comment advil stomach upset, no benefit tylenol no benefit Aspirin helpful prednisone go to Only thing that works Physical Therapy: Yes R shoulder and neck Relevant Previous Investigations CBC Latest Ref Rng & Units 10/24/2007 11/29/2008 03/12/2020 04/01/2021 WBC 3.70 - 11.00 k/uL - - 6.33 7.71 HEMOGLOBIN 11.5 - 15.5 g/dL - - 13.3 12.9 HEMOGLOBIN, SHITAL 12.0 - 16.0 g/dL 13.2 13.4 - - HEMATOCRIT 36.0 - 46.0 % - - 39.5 38.0 PLATELETS 150 - 400 k/uL - - 254 262 ABS NEUT (ANC) 1.45 - 7.50 k/uL - - 2.80 - ABS NEUT, SHITAL 2.0 - 8.1 k/uL 2.7 2.5 - - ABS LYMP, SHITAL 1.0 - 5.5 k/uL 2.9 2.0 - - ABS LYMPH 1.00 - 4.00 k/uL - - 2.64 - CMP Latest Ref Rng & Units 12/15/2010 04/12/2012 03/12/2020 04/01/2021 SODIUM 136 - 144 mmol/L - - 140 135(L) SODIUM, SHITAL 132 - 148 mmol/L - - - - SODIUM, SHITAL 132 - 148 mmol/L - - - - POTASSIUM 3.7 - 5.1 mmol/L - - 4.2 4.6 POTASSIUM, SHITAL 3.5 - 5.0 mmol/L - - - - CHLORIDE 97 - 105 mmol/L - - 108(H) 102 CHLORIDE, SHITAL 98 - 110 mmol/L - - - - CO2 22 - 30 mmol/L - - 20(L) 24 CO2, SHITAL 23.0 - 32.0 mmol/L - - - - GLUCOSE 74 - 99 mg/dL - - 89 99 GLUCOSE, SHITAL 65 - 100 mg/dL - - - - BUN 7 - 21 mg/dL - - 10 10 BUN, SHITAL 10 - 25 mg/dL - - - - CREATININE 0.58 - 0.96 mg/dL - 0.63(L) 0.65 0.65 CREATININE, SHITAL 0.7 - 1.4 mg/dL - - - - CALCIUM, SHITAL 8.5 - 10.5 mg/dL - - - - CALCIUM, TOTAL 8.5 - 10.2 mg/dL - - 9.2 8.7 AST 13 - 35 U/L - - 20 21 AST, SHITAL 7 - 40 U/L 15 - - - ALT 7 - 38 U/L - - 15 18 ALT, SHITAL 0 - 45 U/L 17 - - - ALKALINE PHOSPHATASE 34 - 123 U/L - - 85 102 ESR, WSR Latest Ref Rng & Units 03/12/2020 WSR 0 - 20 mm/hr 9 Antibodies Latest Ref Rng & Units 05/25/2021 ROSEMARIE Negative Positive(A) ROSEMARIE TITER - 1:80 ROSEMARIE PATTERN - Nuclear fine speckled Urinalysis Latest Ref Rng & Units 08/06/2015 PROTEIN, URINE Negative mg/dL Negative RBC, URINE 0 - 3 /HPF 0-3 Imaging / Studies Last XR Hand/Finger - Impression Only No resulted procedures found. Last MRI Hand - Impression Only No resulted procedures found. Last XR Chest - Impression Only No resulted procedures found. Last XR Cervical Spine - Impression Only No resulted procedures found. Review of Systems Review of Systems CONSTITUTION: Negative for: Fever and Recent weight change Easily fatigued HEENT: Positive for: Nosebleeds (every morning, short lived typically when face is large. She feels it is crusing over.) Negative for: Mouth sores, Trouble swallowing and Dry mouth RESPIRATORY: Negative for: Cough, Shortness of breath, Pain with breathing and Coughing up blood More short of breath lately, now with more significant exertion. GASTROINTESTINAL: Positive for: Heartburn (certain foods triggers it) and Abdominal pain (Did CT scan for this, related associated with shoveling snow) Negative for: Melena and Diarrhea MUSCULOSKELETAL: Positive for: Arthralgias, Myalgias, Muscle weakness (generalized) and Morning Joint Stiffness Negative for: Joint swelling No warmth in painful joints NEUROLOGICAL: Positive for: Headaches, Numbness (R arm mostly in underarm and down forearm into fingers) and Memory loss SKIN: Positive for: Sun Sensitive Rash (easily russell), Skin changes (skin feels like leather on her hands. gets cracks in her fingerips. (worse after using vinegar)) and Hair loss (occasionally feels like pimples before the hair falls out. Has Apt with Derm next month at [facility].) Negative for: Rash and Nail changes Sensitive to soap changes EYES: Positive for: Eye dryness CARDIOVASCULAR: Positive for: Chest pain (occasionally heart feels like it is bursting out of her chest and ear drums. Normal ECG and workup) and Leg swelling (indentations when she takes her socks off) GENITOURINARY: Negative for: Dysuria, Hematuria and Ulcerations + History of chronic UTIs she relates to using different skin products HEMATOLOGIC/LYMPHATIC: Negative for: Swollen glands+ tender on right side in neck and groin and axilla All other reviewed and negative other than HPI. Problem List ACTIVE PROBLEM LIST Marfan's Syndrome Aortic Root Dilation (Hcc) Family History of Marfan Syndrome Chronic Mixed Headache Syndrome Obesity, Class I, Bmi 30-34.9 Anxiety Cervical Radiculopathy Depression With Anxiety Adnexal Mass Liver Cyst Past Medical History PAST MEDICAL HISTORY Diagnosis Date Aortic root dilation (HCC) 4.1 cm Cervical radiculopathy 04/03/2020 Cervical spondylosis without myelopathy 04/03/2020 Chronic mixed headache syndrome 10/31/2020 Family history of Marfan syndrome H/O alopecia areata LIPOMA OTHER SKIN & SUBCUTANEOUS(Left back) 01/20/2005 Major depressive disorder, single episode, mild (HCC) 2006 Marfan's syndrome Lens dislocation and aortic root dilation Past Surgical History PAST SURGICAL HISTORY Procedure Laterality Date CATARACT SURGERY, COMPLEX Right 05/15/1992 CLEAR LENSECTOMY Left 03/24/2001 Left Lensectomy and anterior Chamber IOL Placement- Performed by Dr. Roberto Lucero CLEAR LENSECTOMY Right 09/19/2013 Lensectomy with Anterior Chamber IOL Placement- Performed by Dr. Jomar Lucero COLONOSCOPY SCREENING 01/16/2019 [facility]. Negative. Repeat 10 years. EXCISION TUMOR SOFT TISSUE BACK/FLANK SUBQ <3CM 01/27/2007 left scapular FNA WITH IMAGING Left 01/10/2015 U/S FNA left breast 3 Oclock LAPS ABD PRTM&OMENTUM DX W/WO SPEC BR/WA SPX 1981 Laparoscopy LASER IRIDOTOMY,IRIDECTOMY, ONE EYE Right 05/16/1992 LASER IRIDOTOMY,IRIDECTOMY, ONE EYE Left 03/24/2001 [facility] CORNEO-SCLL SCTJ Bilateral Insert lens prosthesis RPR 1ST INGUN HRNA AGE 6 YRS/> REDUCIBLE 1996 Hernia repair, inguinal Family History FAMILY HISTORY Problem Relation Age of Onset Heart Mother Aortic disection (Marfan's syndrome) Lipids Mother other (Marfans) Mother Heart Father CAD and Heart failure Lipids Father Hypertension Father Heart Sister Cataract Sister Detached Retina Sister Cataract Sister Cataract Sister Blindness Sister other (Marfan's ) Sister Cataract Brother other (Aortic dissection) Brother Cataract Brother other (Aortic aneurysms) Brother Breast Cancer Paternal Grandmother BREAST Diabetes Paternal Grandmother Niece and Nephew have Celiac disease Sister ?Rheumatoid arthritis Sisters with thyroid issues Social History Social History Tobacco Use Smoking status: Former Smoker Packs/day: 0.20 Years: 25.00 Pack years: 5.00 Types: Cigarettes Start date: 01/07/1985 Quit date: 02/29/2008 Years since quittin.2 Smokeless tobacco: Never Used Vaping Use Vaping Use: Never used Substance Use Topics Alcohol use: No Drug use: No Medications Current Outpatient Medications Medication Sig atenolol (TENORMIN) 25 mg tablet TAKE 1 TABLET BY MOUTH ONCE DAILY losartan (COZAAR) 100 mg tablet TAKE 1 TABLET BY MOUTH ONCE DAILY aspirin, enteric coated (ADULT LOW DOSE ASPIRIN) 81 mg EC tablet Take 1 tablet by mouth once daily. No current facility-administered medications for this visit. Physical Exam BP 117/63 Pulse 67 Ht 5' 7 (1.70m) Wt 203 lb 12.8 oz (92.4kg) SpO2 97% LMP 05/14/2021 BMI 31.91 kg/(m^2). Physical Exam Constitutional: General: She is not in acute distress. Appearance: Normal appearance. She is not toxic-appearing. Comments: Marfan body habitus HENT: Head: Normocephalic and atraumatic. Nose: Nose normal. No congestion or rhinorrhea. Comments: No thickening of nasal mucosa or nasal bridge deformity. + frontal sinus tenderness Mouth/Throat: Mouth: Mucous membranes are moist. Pharynx: Oropharynx is clear. No oropharyngeal exudate or posterior oropharyngeal erythema. Comments: Normal salivary pool Eyes: General: No scleral icterus. Conjunctiva/sclera: Conjunctivae normal. Cardiovascular: Rate and Rhythm: Normal rate and regular rhythm. Pulses: Normal pulses. Heart sounds: Normal heart sounds. Pulmonary: Effort: Pulmonary effort is normal. Breath sounds: Normal breath sounds. No stridor. No wheezing or rales. Abdominal: General: Abdomen is flat. There is no distension. Musculoskeletal: General: Tenderness present. No swelling or deformity. Normal range of motion. Cervical back: Normal range of motion and neck supple. Tenderness (Right side of paraspinal muscles of neck) present. Right lower leg: No edema. Left lower leg: No edema. Comments: See joint exam. Scattered tender joints as documented, no erythema, warmth, or synovitis on exam. + sock markings, but no edema noted on exam Lymphadenopathy: Cervical: No cervical adenopathy. Skin: General: Skin is warm and dry. Findings: No rash. Comments: Healing fissures on finger tips and dry skin on hands Dry skin over IP joints No Heliotrop rash + Silver dollar size area of alopecia in the back of her scalp. No new growth noted. No malar rash No skin thickening No naifold capillary changes or psoriatic plaques noted. Neurological: General: No focal deficit present. Mental Status: She is alert and oriented to person, place, and time. Mental status is at baseline. Sensory: Sensory deficit (decreased sensation R upper extremity) present. Motor: No weakness. Coordination: Coordination normal. Psychiatric: Mood and Affect: Mood normal. Behavior: Behavior normal. Thought Content: Thought content normal. Judgment: Judgment normal. Joint Exam 05/29/2021 Right Left Sternoclavicular Tender Acromioclavicular Tender Glenohumeral Tender Elbow Tender MCP 3 Tender MCP 4 Tender PIP 2 Tender Tender Knee Tender The following joints were examined and normal: Right Sternoclavicular, Left Acromioclavicular, Left Glenohumeral, Left Elbow, Left Wrist, Right Wrist, Left MCP 1, Right MCP 1, Left MCP 2, Right MCP 2, Left MCP 3, Left MCP 4, Left MCP 5, Right MCP 5, Left IP, Right IP, Left PIP 3, Right PIP 3, Left PIP 4, Right PIP 4, Left PIP 5, Right PIP 5, Left Hip, Right Hip, Left Knee, Left Ankle, Right Ankle, Left Tarsometatarsal, Right Tarsometatarsal, Left MTP 1, Right MTP 1, Left MTP 2, Right MTP 2, Left MTP 3, Right MTP 3, Left MTP 4, Right MTP 4, Left MTP 5, Right MTP 5 Impression SED Rate (WSR): 9 (03/12/2020) 55 year old female with medical history of Marfan's syndrome (with history of lens dislocation on both sides and mild Aortic root dilation following with cardiology), chronic headache and anxiety presents to rheumatology for multiple problems and concern for autoimmune disease and + ROSEMARIE (1:80, nuclear fine speckled) Symptoms of concern include a half-dollar size patch of hair loss, Muscle aching and perceived weakness (morning worse in neck, shoulders and low back), history of face swelling and then lens dislocation in both eyes (normal CT scan externally), R arm radiculopathy pain x 8 months (C6-C7, somewhat improved with PT, but still bothersome), Chronic headache on R side of face in temporal region (dx migraine per neurology), muscle spasms of R side of esophagus (without dysphagia), ice cravings, and hot sensations on the skin mostly on R side in R leg with pain radiating from inside out. She also has frequent walter horses and R hand locking up. She also feels sensitive to odors, ROS also was positive for Skin changes (rough/thickening and fissures on fingers per patient), recurrent nose bleeds every morning with crusting over), Dry eyes, occasional palpitations, numbness in R arm and memory loss. Exam was negative for synovitis, or joint effusion. No true weakness. + R upper extremity with decreased sensation. I did visualize her patch of hair loss with gardner hairs in the affected area. At this time, I don't have high suspicion for autoimmune disease to explain all her symptoms. She doesn't meet lupus classification criteria, and +ROSEMARIE is of very low titer and is unlikely of clinical significance. Plan For hair loss and skin changes- agree with derm referral For cervical radiculopathy and R sided arm discomfort, continue PT, Pain management or Neuro follow up if paresthesias persist. For headache, I feel they are most likely related to her radiculopathy/neck pain. FU with neuro/PCP for management. For Pica - check iron and zinc Will check labs for inflammatory arthritis, inflammatory myopathy, vasculitis, Sjogren's syndrome, Scleroderma, connective tissue disease, and vitamin deficiencies that can explain her symptoms. Will also check Thyroid peroxidase antibody to see if this can explain her +ROSEMARIE. Office Visit on 05/29/21 -DNA AB DS + CONF BLD: -ANTI SUGAR ID: -RHEUMATOID FACTOR BL: -CCP ANTIBODY IGG: -SED RATE WESTERGREN: -C-REACTIVE PROTEIN (CRP): -CK CREATINE KINASE: -THYROID PEROXIDASE ANTIBODY BLOOD: -ANTI NEUTRO CYTO AB: -CONSULT TO RHEUM/IMMUN DISEASE: No follow-ups on file. Consultation requested by Dr. Emily Espinoza for an opinion regarding joint pain, fatigue, +ROSEMARIE and my final recommendations will be communicated back to the requesting physician by way of shared medical record or letter by US mail. I spent a total of 69 minutes on the date of the service which included preparing to see the patient, [id number] patient care, completing clinical documentation, obtaining and/or reviewing separately obtained history, performing a medically appropriate examination, counseling and educating the patient/family/caregiver, ordering medications, tests, or procedures and communicating results to the patient/family/caregiver. Madeleine Frazier PA-C cc: PCP: Aba Del Toro [address] [place] [id number] Medical Decision Making documented in this encounter [facility] 05-27-2021 Miscellaneous Notes Spoke with pt and scheduled her Rheumatology appointment for 05/29/21 @ 11am. documented in this encounter [facility] 07-09-2020 History of Past i llness Narrative Problem Noted Date Resolved Date Cervical spondylosis without myelopathy 07/10/19 21 09/25/2020 Abnormal mammogram 01/07/2015 10/31/2020 LIPOMA OTHER SKIN & SUBCUTANEOUS(Left back) 12/3010/31/2020 documented as of this encounter (statuses as of 05/27/2021) [address]12-2021 History of Past illness Narrative* Problem Noted Date Resolved Date Cervical spondylosis without myelopathy 07/10/19 21 09/25/2020 Abnormal mammogram 01/07/2015 10/31/2020 LIPOMA OTHER SKIN & SUBCUTANEOUS(Left back) 12/3010/31/2020 documented as of this encounter (statuses as of 06/04/2021) [address]-2021 History of Past illness Narrative* Problem Noted Date Resolved Date Cervical spondylosis without myelopathy 07/10/19 21 09/25/2020 Abnormal mammogram 01/07/2015 10/31/2020 LIPOMA OTHER SKIN & SUBCUTANEOUS(Left back) 12/3010/31/2020 documented as of this encounter (statuses as of 06/04/2021) [facility]2021 History of Past illness Narrative* Problem Noted Date Resolved Date Cervical spondylosis without myelopathy 07/10/1909/25/2020 Abnormal mammogram 01/07/2015 10/31/2020 LIPOMA OTHER SKIN & SUBCUTANEOUS(Left back) 12/3010/31/2020 documented as of this encounter (statuses as of 08/17/2021) [address]12-2021 History of Past illness Narrative* Problem Noted Date Resolved Date Cervical spondylosis without myelopathy 07/10/1909/25/2020 Abnormal mammogram 01/07/2015 10/31/2020 LIPOMA OTHER SKIN & SUBCUTANEOUS(Left back) 12/3010/31/2020 documented as of this encounter (statuses as of 08/27/2021) [address]12-2021 History of Past illness Narrative* Problem Noted Date Resolved Date Cervical spondylosis without myelopathy 07/10/19 21 09/25/2020 Abnormal mammogram 01/07/2015 10/31/2020 LIPOMA OTHER SKIN & SUBCUTANEOUS(Left back) 12/3010/31/2020 documented as of this encounter (statuses as of 10/15/2021) [address]12-2021 History of Past illness Narrative* Problem Noted Date Resolved Date Cervical spondylosis without myelopathy 05/02/16 2109/25/2020 Abnormal mammogram 01/07/2015 10/31/2020 LIPOMA OTHER SKIN & SUBCUTANEOUS(Left back) 12/3010/31/2020 documented as of this encounter (statuses as of 11/30/2021) [address]12-2021 History of Past illness Narrative* Problem Noted Date Resolved Date Cervical spondylosis without myelopathy 07/10/1909/25/2020 Abnormal mammogram 01/07/2015 10/31/2020 LIPOMA OTHER SKIN & SUBCUTANEOUS(Left back) 12/3010/31/2020 documented as of this encounter (statuses as of 12/03/2021) [address]12-2021 History of Past illness Narrative* Problem Noted Date Resolved Date Cervical spondylosis without myelopathy 07/10/1909/25/2020 Abnormal mammogram 01/07/2015 10/31/2020 LIPOMA OTHER SKIN & SUBCUTANEOUS(Left back) 12/3010/31/2020 documented as of this encounter (statuses as of 12/05/2021) [address]12-2021 History of Past illness Narrative* Problem Noted Date Resolved Date Cervical spondylosis without myelopathy 07/10/1909/25/2020 Abnormal mammogram 01/07/2015 10/31/2020 LIPOMA OTHER SKIN & SUBCUTANEOUS(Left back) 12/3010/31/2020 documented as of this encounter (statuses as of 12/07/2021) [address]12-2021 History of Past illness Narrative* Problem Noted Date Resolved Date Cervical spondylosis without myelopathy 07/10/1909/25/2020 Abnormal mammogram 01/07/2015 10/31/2020 LIPOMA OTHER SKIN & SUBCUTANEOUS(Left back) 12/3010/31/2020 documented as of this encounter (statuses as of 12/14/2021) [address]12-2021 History of Past illness Narrative* Problem Noted Date Resolved Date Cervical spondylosis without myelopathy 07/10/19 21 09/25/2020 Abnormal mammogram 01/07/2015 10/31/2020 LIPOMA OTHER SKIN & SUBCUTANEOUS(Left back) 11/2 04/2004 10/31/2020 documented as of this encounter (statuses as of 12/25/2021) [address]12-2021 History of Past illness Narrative* Problem Noted Date Resolved Date Cervical spondylosis without myelopathy 07/10/19 21 09/25/2020 Abnormal mammogram 01/07/2015 10/31/2020 LIPOMA OTHER SKIN & SUBCUTANEOUS(Left back) 12/3010/31/2020 documented as of this encounter (statuses as of 02/15/2022) [address]12-2021 History of Past illness Narrative* Problem Noted Date Resolved Date Cervical spondylosis without myelopathy 07/10/1909/25/2020 Abnormal mammogram 01/07/2015 10/31/2020 LIPOMA OTHER SKIN & SUBCUTANEOUS(Left back) 12/3010/31/2020 documented as of this encounter (statuses as of 03/16/2022) [address]12-2021 History of Past illness Narrative* Problem Noted Date Resolved Date Cervical spondylosis without myelopathy 07/10/1909/25/2020 Abnormal mammogram 01/07/2015 10/31/2020 LIPOMA OTHER SKIN & SUBCUTANEOUS(Left back) 12/3010/31/2020 documented as of this encounter (statuses as of 03/31/2022) [address]12-2021 History of Past illness Narrative* Problem Noted Date Resolved Date Cervical spondylosis without myelopathy 07/10/1909/25/2020 Abnormal mammogram 01/07/2015 10/31/2020 LIPOMA OTHER SKIN & SUBCUTANEOUS(Left back) 12/3010/31/2020 documented as of this encounter (statuses as of 04/29/2022) [address]12-2021 History of Past illness Narrative* Problem Noted Date Resolved Date Cervical spondylosis without myelopathy 07/10/19 21 09/25/2020 Abnormal mammogram 01/07/2015 10/31/2020 LIPOMA OTHER SKIN & SUBCUTANEOUS(Left back) 12/3010/31/2020 documented as of this encounter (statuses as of 05/01/2022) [address]12-2021 History of Past illness Narrative* Problem Noted Date Resolved Date Cervical spondylosis without myelopathy 07/10/19 21 09/25/2020 Abnormal mammogram 01/07/2015 10/31/2020 LIPOMA OTHER SKIN & SUBCUTANEOUS(Left back) 12/3010/31/2020 documented as of this encounter (statuses as of 05/05/2022) [address]12-2021 History of Past illness Narrative* Problem Noted Date Resolved Date Cervical spondylosis without myelopathy 07/10/1909/25/2020 Abnormal mammogram 01/07/2015 10/31/2020 LIPOMA OTHER SKIN & SUBCUTANEOUS(Left back) 12/3010/31/2020 documented as of this encounter (statuses as of 06/08/2022) [address]12-2021 History of Past illness Narrative* Problem Noted Date Resolved Date Cervical spondylosis without myelopathy 07/10/1909/25/2020 Abnormal mammogram 01/07/2015 10/31/2020 LIPOMA OTHER SKIN & SUBCUTANEOUS(Left back) 12/3010/31/2020 documented as of this encounter (statuses as of 06/28/2022) [address]12-2021 History of Past illness Narrative* Problem Noted Date Diagnosed Date Resolved Date Cervical spondylosis without myelopathy 07/09/2020 09/25/2020 Abnormal mammogram 01/07/2015 1 LIPOMA OTHER SKIN & SUBCUTANEOUS(Left back) 01/20/2005 10/31/2020 documented as of this encounter (statuses as of 09/13/2022) [facility]2021 History of Past illness Narrative* Problem Noted Date Diagnosed Date Resolved Date Cervical spondylosis without myelopathy 07/09/2020 09/25/2020 Abnormal mammogram 01/07/2015 1 LIPOMA OTHER SKIN & SUBCUTANEOUS(Left back) 01/20/2005 10/31/2020 documented as of this encounter (statuses as of 12/10/2022) [address]12-2021 History of Past illness Narrative* Problem Noted Date Diagnosed Date Resolved Date Cervical spondylosis without myelopathy 07/09/2020 09/25/2020 Abnormal mammogram 01/07/2015 1 LIPOMA OTHER SKIN & SUBCUTANEOUS(Left back) 01/20/2005 10/31/2020 documented as of this encounter (statuses as of 01/01/2023) [address]12-2021 History of Past illness Narrative* Problem Noted Date Diagnosed Date Resolved Date Cervical spondylosis without myelopathy 07/09/2020 09/25/2020 Abnormal mammogram 01/07/2015 1 LIPOMA OTHER SKIN & SUBCUTANEOUS(Left back) 01/20/2005 10/31/2020 documented as of this encounter (statuses as of 01/05/2023) [address]12-2021 History of Past illness Narrative* Problem Noted Date Diagnosed Date Resolved Date Cervical spondylosis without myelopathy 07/09/2020 09/25/2020 Abnormal mammogram 01/07/2015 1 LIPOMA OTHER SKIN & SUBCUTANEOUS(Left back) 01/20/2005 10/31/2020 documented as of this encounter (statuses as of 04/08/2023) [address]12-2021 History of Past illness Narrative* Problem Noted Date Diagnosed Date Resolved Date Cervical spondylosis without myelopathy 07/09/2020 09/25/2020 Abnormal mammogram 01/07/2015 1 LIPOMA OTHER SKIN & SUBCUTANEOUS(Left back) 01/20/2005 10/31/2020 documented as of this encounter (statuses as of 04/09/2023) [address]12-2021 History of Past illness Narrative* Problem Noted Date Diagnosed Date Resolved Date Cervical spondylosis without myelopathy 07/09/2020 09/25/2020 Abnormal mammogram 01/07/2015 1 LIPOMA OTHER SKIN & SUBCUTANEOUS(Left back) 01/20/2005 10/31/2020 documented as of this encounter (statuses as of 04/12/2023) [address]12-2021 History of Past illness Narrative* Problem Noted Date Diagnosed Date Resolved Date Cervical spondylosis without myelopathy 07/09/2020 09/25/2020 Abnormal mammogram 01/07/2015 1 LIPOMA OTHER SKIN & SUBCUTANEOUS(Left back) 01/20/2005 10/31/2020 documented as of this encounter (statuses as of 04/15/2023) [address]12-2021 History of Past illness Narrative* Problem Noted Date Diagnosed Date Resolved Date Cervical spondylosis without myelopathy 07/09/2020 09/25/2020 Abnormal mammogram 01/07/2015 1 LIPOMA OTHER SKIN & SUBCUTANEOUS(Left back) 01/20/2005 10/31/2020 documented as of this encounter (statuses as of 04/22/2023) [address]12-2021 History of Past illness Narrative* Problem Noted Date Diagnosed Date Resolved Date Cervical spondylosis without myelopathy 07/09/2020 09/25/2020 Abnormal mammogram 01/07/2015 1 LIPOMA OTHER SKIN & SUBCUTANEOUS(Left back) 01/20/2005 10/31/2020 documented as of this encounter (statuses as of 04/22/2023) [address]12-2021 History of Past illness Narrative* Problem Noted Date Diagnosed Date Resolved Date Cervical spondylosis without myelopathy 07/09/2020 09/25/2020 Abnormal mammogram 01/07/2015 1 LIPOMA OTHER SKIN & SUBCUTANEOUS(Left back) 01/20/2005 10/31/2020 documented as of this encounter (statuses as of 04/22/2023) [address]12-2021 History of Past illness Narrative* Problem Noted Date Diagnosed Date Resolved Date Cervical spondylosis without myelopathy 07/09/2020 09/25/2020 Abnormal mammogram 01/07/2015 1 LIPOMA OTHER SKIN & SUBCUTANEOUS(Left back) 01/20/2005 10/31/2020 documented as of this encounter (statuses as of 05/05/2023) [address]12-2021 History of Past illness Narrative* Problem Noted Date Diagnosed Date Resolved Date Cervical spondylosis without myelopathy 07/09/2020 09/25/2020 Abnormal mammogram 01/07/2015 1 LIPOMA OTHER SKIN & SUBCUTANEOUS(Left back) 01/20/2005 10/31/2020 documented as of this encounter (statuses as of 05/17/2023) [address]12-2021 History of Past illness Narrative* Problem Noted Date Diagnosed Date Resolved Date Cervical spondylosis without myelopathy 07/09/2020 09/25/2020 Abnormal mammogram 01/07/2015 1 LIPOMA OTHER SKIN & SUBCUTANEOUS(Left back) 01/20/2005 10/31/2020 documented as of this encounter (statuses as of 05/23/2023) [facility]-2021 History of Past illness Narrative* Problem Noted Date Diagnosed Date Resolved Date Cervical spondylosis without myelopathy 07/09/2020 09/25/2020 Abnormal mammogram 01/07/2015 1 LIPOMA OTHER SKIN & SUBCUTANEOUS(Left back) 01/20/2005 10/31/2020 documented as of this encounter (statuses as of 06/03/2023) [facility] History of Past illness Narrative* Problem Noted Date Diagnosed Date Resolved Date Cervical spondylosis without myelopathy 07/09/2020 09/25/2020 Abnormal mammogram 01/07/2015 1 LIPOMA OTHER SKIN & SUBCUTANEOUS(Left back) 01/20/2005 10/31/2020 documented as of this encounter (statuses as of 06/17/2023) [facility] note* Diagnosis Multiple joint pain- Primary Pain in joint, multiple sites Fatigue, unspecified type Marfan's syndrome Hair loss Alopecia, unspecified Myalgia Mylagia and myositis, unspecified Subjective weakness Other malaise and fatigue Cervical radiculopathy Brachial neuritis or radiculitis nos Pica in adults Pica [facility] [place] [facility]* Diagnosis Multiple joint pain- Primary Pain in joint, multiple sites Fatigue, unspecified type Pica in adults Pica documented in this encounter [facility] noteNo assessment information availableWThe [facility] System Work Phone: Evaluation note* Diagnosis Encounter for screening mammogram for breast cancer [facility] [place] [facility]* Diagnosis Marfan's syndrome- Primary [facility] Diagnosis Urinary frequency- Primary Burning with urination Dysuria Gastroesophageal reflux disease, unspecified whether esophagitis present [facility] [place] [facility]* Diagnosis Onset Date Resolution Status GERD (gastroesophageal reflux disease) acute Aortic root dilatation chron ic Moderate major depression no neactive Establishing care with new doctor, encounter for noneactive Chronic daily headache nonea ctive [facility] [place] Work Phone: Evaluation note* Diagnosis Obesity, Class II, BMI 35-39.9- Primary Obesity, unspecified Dietary counseling Dietary surveillance and counseling Marfan's syndrome Gastroesophageal reflux disease without esophagitis Esophageal reflux documented in this encounter [facility] note* Diagnosis Acute cystitis with hematuria- Primary Acute cystitis Urinary frequency Ganglion cyst Ganglion, unspecified documented in this encounter [facility] note* Diagnosis Ganglion cyst- Primary Ganglion, unspecified Anxiety Anxiety state, unspecified Cervicalgia Cervical disc herniation Displacement of cervical intervertebral disc without myelopathy Cervical nerve root impingement Brachial neuritis or radiculitis nos Cervical radiculopathy Brachial neuritis or radiculitis nos Chronic mixed headache syndrome Other headache syndromes Gastroesophageal reflux disease without esophagitis Esophageal reflux Marfan's syndrome Aortic root dilation (HCC) Thoracic aortic ectasia Encounter for therapeutic drug monitoring Screening for lipid disorders documented in this encounter [facility] note* Diagnosis Ganglion cyst Ganglion, unspecified Cervicalgia documented in this encounter [facility] note* Diagnosis Cervicalgia Marfan's syndrome Chronic mixed headache syndrome Other headache syndromes documented in this encounter [facility] note* Diagnosis Onset Date Resolution Status GERD (gastroesophageal reflux disease) acute RLQ abdominal pain acute [facility] [place] Work Phone: Evaluation note* Diagnosis Encounter for gynecological examination (general) (routine) without abnormal findings- Primary documented in this encounter [facility] note* Diagnosis NAFLD (nonalcoholic fatty liver disease)- Primary Other chronic nonalcoholic liver disease Cyst of right ovary Other and unspecified ovarian cyst Left knee pain, unspecified chronicity Cervical radiculopathy Brachial neuritis or radiculitis nos Class 1 obesity due to excess calories with body mass index (BMI) of 32.0 to 32.9 in adult, unspecified whether serious comorbidity present documented in this encounter [facility] note* Diagnosis Sternal pain- Primary Chest pain, unspecified SOB (shortness of breath) Shortness of breath Chronic fatigue Other malaise and fatigue Chronic midline back pain, unspecified back location Class 1 obesity due to excess calories with body mass index (BMI) of 32.0 to 32.9 in adult, unspecified whether serious comorbidity present Abdominal bloating Flatulence, eructation, and gas pain Moderate major depression (HCC) Major depressive disorder, single episode, moderate [facility] Screening mammogram for breast cancer- Primary NAFLD (nonalcoholic fatty liver disease) Other chronic nonalcoholic liver disease Encounter for therapeutic drug monitoring [facility] [place] [facility]* Diagnosis Cervicalgia Cervical radiculopathy Brachial neuritis or radiculitis nos Cervical nerve root impingement Brachial neuritis or radiculitis nos Cervical disc herniation Displacement of cervical intervertebral disc without myelopathy documented [facility] [place] [facility]* Diagnosis Thyromegaly Goiter, unspecified documented [facility] [place] [facility]* Diagnosis Screening mammogram for breast cancer documented [facility] [place] [facility]* Diagnosis Urinary frequency- Primary documented [facility] [place] [facility]* Diagnosis Gastroesophageal reflux disease without esophagitis Esophageal reflux LPRD (laryngopharyngeal reflux disease) Other diseases of larynx documented [facility] [place] [facility]* Diagnosis Encounter for gynecological examination (general) (routine) without abnormal findings- Primary Encounter for screening mammogram for breast cancer Dense breast tissue Screening for cervical cancer Screening for malignant neoplasm of the cervix Special screening examination for human papillomavirus (HPV) Pelvic pain in female Unspecified symptom associated with female genital organs Screen for STD (sexually transmitted disease) Screening examination for venereal disease documented [facility] [place] [facility]* Diagnosis Pelvic pain in female Unspecified symptom associated with female genital organs documented [facility] [place] [facility]* Diagnosis Menorrhagia with regular cycle- Primary Excessive or frequent menstruation Cyst of ovary, unspecified laterality documented [facility] [place] [facility]* Diagnosis Cervical radiculopathy- Primary Brachial neuritis or radiculitis nos Cervical disc herniation Displacement of cervical intervertebral disc without myelopathy Anxiety Anxiety state, unspecified Depression with anxiety Dysthymic disorder Moderate major depression (HCC) Major depressive disorder, single episode, moderate documented [facility] [place] [facility]* Diagnosis Marfan's syndrome- Primary Aortic root dilation (HCC) Thoracic aortic ectasia Family history of Marfan syndrome Chest pain, unspecified type documented [facility] encounter [facility] [place] [facility]* Diagnosis Vitreous floaters of both eyes- Primary Marfan's syndrome with ocular manifestation Marfan's syndrome Glaucoma suspect of both eyes Preglaucoma, unspecified Pseudophakia Lens replaced by other means documented [facility] [place] [facility]* Diagnosis Marfan's syndrome Aortic root dilation (HCC) Thoracic aortic ectasia Family history of Marfan syndrome Chest pain, unspecified type documented [facility] [place] [facility]* Diagnosis Cervical radiculopathy Brachial neuritis or radiculitis nos Cervical disc herniation Displacement of cervical intervertebral disc without myelopathy documented [facility] [place] [facility]* Diagnosis Marfan's syndrome- Primary Aortic root dilation (HCC) Thoracic aortic ectasia Family history of Marfan syndrome [facility] [place] [facility]* Diagnosis Cervical radiculopathy- Primary Brachial neuritis or radiculitis nos documented [facility] this [facility] [place] [facility]* Diagnosis Sternal pain Chest pain, unspecified SOB (shortness of breath) Shortness of breath documented [facility] [place] [facility]* Diagnosis Depression with anxiety- Primary Dysthymic disorder Grief Adjustment disorder with depressed mood Cervical radiculopathy Brachial neuritis or radiculitis nos Cervical disc herniation Displacement of cervical intervertebral disc without myelopathy Gastroesophageal reflux disease without esophagitis Esophageal reflux LPRD (laryngopharyngeal reflux disease) Other diseases of larynx [facility] [place] [facility]* Diagnosis Encounter for long-term (current) use of medications- Primary Encounter for long-term (current) use of other medications Elevated LDL cholesterol level Pure hypercholesterolemia [facility] [place] [facility]* Diagnosis Cervical radiculopathy- Primary Brachial neuritis or radiculitis nos documented [facility] this [facility] [place] [facility]* Diagnosis Cervical radiculopathy- Primary Brachial neuritis or radiculitis nos Depression with anxiety Dysthymic disorder Medication side effects Unspecified adverse effect of unspecified drug, medicinal and biological substance documented [facility] this encounter [facility] [place] [facility]* Diagnosis Abnormal finding of diagnostic imaging- Primary Other nonspecific (abnormal) findings on radiological and other examinations of body structure documented [facility] [place] [facility]* Diagnosis Alopecia areata- Primary Anxiety Anxiety state, unspecified Cervical radiculopathy at C6 Brachial neuritis or radiculitis nos [facility]* Diagnosis Cyst of ovary, unspecified laterality- Primary Intramural and subserous leiomyoma of uterus Adenomyosis of the uterus documented [facility] [place] [facility]* Diagnosis Encounter for gynecological examination (general) (routine) without abnormal findings- Primary Encounter for screening mammogram for breast cancer documented [facility] [place] [facility]* Diagnosis Encounter for screening mammogram for breast cancer Dense breast tissue [facility] [place] [facility]* Diagnosis Primary hypertension- Primary Unspecified essential hypertension Anxiety Anxiety state, unspecified Daytime sleepiness Snoring Other dyspnea and respiratory abnormality Marfan's syndrome (HCC) Marfan's syndrome [facility] this [facility] [place] [facility]* Diagnosis Numbness and tingling of right face- Primary Disturbance of skin sensation documented in this encounter [facility] note* Diagnosis Cervical radiculopathy- Primary Brachial neuritis or radiculitis nos [facility] [place] [facility]* Diagnosis Marfan's syndrome (HCC)- Primary Marfan's syndrome Aortic root dilation Thoracic aortic ectasia Primary hypertension Unspecified essential hypertension Hypercholesterolemia Pure hypercholesterolemia Family history of Marfan syndrome [facility] this [facility] [place] [facility]* Diagnosis Eczematous dermatitis of upper and lower eyelids of both eyes- Primary Vitreous floaters of both eyes Marfan's syndrome with ocular manifestation (HCC) Marfan's syndrome Glaucoma suspect of both eyes Preglaucoma, unspecified Pseudophakia Lens replaced by other means documented in this encounter [facility] note* Diagnosis Cervical radiculopathy Brachial neuritis or radiculitis nos documented in this encounter [facility] note* Diagnosis Other eczema- Primary Lipoma of skin and subcutaneous tissue Lipoma of other skin and subcutaneous tissue Cervical radiculopathy Brachial neuritis or radiculitis nos Anxiety Anxiety state, unspecified Primary hypertension Unspecified essential hypertension Class 1 obesity due to excess calories without serious comorbidity with body mass index (BMI) of 32.0 to 32.9 in adult Elevated fasting glucose Impaired fasting glucose [facility] [place] [facility]* Diagnosis Cervical radiculopathy- Primary Brachial neuritis or radiculitis nos [facility] [place] [facility]* Diagnosis Encounter for therapeutic drug monitoring- Primary Hypercholesterolemia Pure hypercholesterolemia Elevated fasting glucose Impaired fasting glucose Arthralgia of multiple joints Pain in joint, multiple sites Osteopenia, unspecified location Cervical radiculopathy Brachial neuritis or radiculitis nos Cervical radiculopathy at C6 Brachial neuritis or radiculitis nos Cervical disc herniation Displacement of cervical intervertebral disc without myelopathy Encounter for screening for cardiovascular disorders Screening for other and unspecified cardiovascular conditions documented in this encounter [facility] note* Diagnosis Immunity status testing- Primary Antibody response examination documented in this encounter [facility] note* Diagnosis Anxiety- Primary Anxiety state, unspecified Obesity, Class I, BMI 30-34.9 Obesity, unspecified Dermatitis Contact dermatitis and other eczema, due to unspecified cause Cervical disc disease Other and unspecified disc disorder of cervical region Cervical disc herniation Displacement of cervical intervertebral disc without myelopathy documented in this encounter [facility] note* Diagnosis Spinal stenosis in cervical region- Primary Radiculopathy, cervical region Brachial neuritis or radiculitis nos Spinal stenosis in cervical region Radiculopathy, cervical region Brachial neuritis or radiculitis nos documented in this encounter [facility] note* Diagnosis Spinal stenosis in cervical region Radiculopathy, cervical region Brachial neuritis or radiculitis nos documented in this encounter [facility] note* Diagnosis Encounter for screening for lung cancer- Primary Former tobacco use Personal history of tobacco use, presenting hazards to health Shortness of breath documented in this encounter [facility] note* Diagnosis Shortness of breath documented in this encounter [facility] note* Diagnosis Shortness of breath documented in this encounter [facility] note* Diagnosis Shortness of breath documented in this encounter [facility] for referral (narrative)* Diagnostic Procedure Only (Routine) - Pending Review Specialty Diagnoses / Procedures Referred By Christian shah Referred To Contact [facility] Diagnoses Encounter for screening mammogram for breast cancer Procedures CARLOS ENRIQUE SCREENING W REUBEN SCREENING DIGITAL BREAST TOMOSYNTHESIS BI SCREENING MAMMOGRAPHY BI 2-VIEW BREAST INC CAD Aba Del Toro MD [address] [place] [address] [facility] [address] [place] [id number] Referral ID Status Reason Start Date Expiration Date Visits Requested Visits Authorized [id number] Pending Review Auto-Generat ed Referral 08/12/2021 09/11/2022 1 1 [facility] for referral (narrative)* Diagnostic Procedure Only (Routine) - Pending Review Specialty Diagnoses / Procedures Referred By Christian shah Referred To Contact [facility] Diagnoses Screening mammogram for breast cancer Procedures CARLOS ENRIQUE SCREENING W REUBEN SCREENING DIGITAL BREAST TOMOSYNTHESIS BI SCREENING MAMMOGRAPHY BI 2-VIEW BREAST INC Lenny Torres MD [facility] [place] [address] [facility] [address] [place] [address] Referral ID Status Reason Start Date Expiration Date Visits Requested Visits Authorized [id number] Pending Review Auto-Generat ed Referral 01/06/2024 1 1 [facility] for referral (narrative)* Diagnostic Procedure Only (Routine) - Closed Specialty Diagnoses / Procedures Referred By Christian shah Referred To Contact [facility] Diagnoses Thyromegaly Procedures US THYROID/PARATHYROID US SOFT TISSUE HEAD & NECK REAL TIME IMGE Lenny Dias MD [facility] [place] [address] [facility] Referral ID Status Reason Start Date Expiration Date V isits Requested Visits Authorized [id number] Closed Auto-Generate d Referral 01/04/2023 02/03/2024 1 1 [facility] for referral (narrative)* Diagnostic Procedure Only (Routine) - Closed Specialty Diagnoses / Procedures Referred By Christian shah Referred To Contact [facility] Diagnoses Screening mammogram for breast cancer Procedures CARLOS ENRIQUE SCREENING W REUBEN SCREENING DIGITAL BREAST TOMOSYNTHESIS BI SCREENING MAMMOGRAPHY BI 2-VIEW BREAST INC Lenny Torres MD [address] [place] [address] [facility] [address] [place] [address] Referral ID Status Reason Start Date Expiration Date V isits Requested Visits Authorized [id number] Closed Auto-Generate d Referral 12/07/2022 01/06/2024 1 1 [facility] for referral (narrative)* Diagnostic Procedure Only (Routine) - Authorized Specialty Diagnoses / Procedures Referred By Contac t Referred To Contact [facility] Diagnoses Pelvic pain in female Procedures US FEMALE PELVIS TRANSVAG US TRANSVAGINAL Konstantin River MD [address] [place] [address] [place] [address] Referral ID Status Reason Start Date Expiration Date Visits Requested Visits Authorized [id number] Authorized Auto-Generat ed Referral 05/05/2023 06/03/2024 1 1 * Diagnostic Procedure Only (Routine) - Authorized Specialty Diagnoses / Procedures Referred By Christian t Referred To Contact [facility] Diagnoses Pelvic pain in female Procedures PELVIC US WHI US PELVIC NONOBSTETRIC REAL-TIME IMAGE COMPLETE Konstantin River MD [address] [place] [address] [facility] [address] [place] [address] Referral ID Status Reason Start Date Expiration Date Visits Requested Visits Authorized [id number] Authorized Auto-Generat ed Referral 05/05/2023 05/04/2024 1 1 * Diagnostic Procedure Only (Routine) - Authorized Specialty Diagnoses / Procedures Referred By Christian shah Referred To Contact [facility] Diagnoses Encounter for screening mammogram for breast cancer Dense breast tissue Procedures CARLOS ENRIQUE SCREENING W REUBEN SCREENING DIGITAL BREAST TOMOSYNTHESIS BI SCREENING MAMMOGRAPHY BI 2-VIEW BREAST INC CAD Konstantin River MD [address] [place] [address] [facility] [address] [place] [address] Referral ID Status Reason Start Date Expiration Date Visits Requested Visits Authorized [id number] Authorized Auto-Generat ed Referral 05/05/2023 06/03/2024 1 1 [facility] for referral (narrative)* Diagnostic Procedure Only (Routine) - Pending Review Specialty Diagnoses / Procedures Referred By Contac t Referred To Contact [facility] Diagnoses Cyst of ovary, unspecified laterality Procedures PELVIC US I US PELVIC NONOBSTETRIC REAL-TIME IMAGE COMPLETE Konstantin River MD [address] [place] [address] [facility] [address] [place] [address] Referral ID Status Reason Start Date Expiration Date Visits Requested Visits Authorized [id number] Pending Review Auto-Generat ed Referral 06/17/2023 06/16/2024 1 1 [facility] for referral (narrative)* Diagnostic Procedure Only (Routine) - Closed Specialty Diagnoses / Procedures Referred By Contac t Referred To Contact XR IMAGING Diagnoses Cervical radiculopathy Cervical disc herniation Procedures XR CERV OTHER 4V AP/LAT/OBL RADEX SPINE CERVICAL 4 OR 5 VIEWS Nohemy Davis APRN.CNP [address] [place], [place] [id number] [place] [address] Referral ID Status Reason Start Date Expiration Date V isits Requested Visits Authorized [id number] Closed Auto-Generate d Referral 08/15/2023 09/13/2024 1 1 T [facility] for referral (narrative)No reason for referral information availableWThe [facility] Work Phone: Reason for visit Narrative* Diagnostic Procedure Only (Routine) - Closed Specialty Diagnoses / Procedures Referred By Contac t Referred To Contact [facility] Diagnoses Screening mammogram for breast cancer Procedures CARLOS ENRIQUE SCREENING W REUBEN SCREENING DIGITAL BREAST TOMOSYNTHESIS BI SCREENING MAMMOGRAPHY BI 2-VIEW BREAST INC Lenny Torres MD [address] [place] [address] [facility] [address] [place] [address] Referral ID Status Reason Start Date Expiration Date V isits Requested Visits Authorized [id number] Closed Auto-Generate d Referral 12/07/2022 01/06/2024 1 1 [facility] for visit Narrative* Diagnostic Procedure Only (Routine) - Closed Specialty Diagnoses / Procedures Referred By Christian t Referred To Contact XR IMAGING Diagnoses Cervical radiculopathy Cervical disc herniation Procedures XR CERV OTHER 4V AP/LAT/OBL RADEX SPINE CERVICAL 4 OR 5 VIEWS Nohemy Davis APRN.[employer] [address] [place] [address] [place] [address] Referral ID Status Reason Start Date Expiration Date V isits Requested Visits Authorized [id number] Closed Auto-Generate d Referral 08/15/2023 09/13/2024 1 1 [facility] for visit Narrative* Diagnostic Procedure Only (Routine) - Closed Specialty Diagnoses / Procedures Referred By Christian shah Referred To Contact [facility] Diagnoses Cyst of ovary, unspecified laterality Procedures PELVIC US I US PELVIC NONOBSTETRIC REAL-TIME IMAGE COMPLETE Konstantin River MD [address] [place] [address] [facility] [address] [place] [address] Referral ID Status Reason Start Date Expiration Date V isits Requested Visits Authorized [id number] Closed Auto-Generate d Referral 06/17/2023 06/16/2024 1 1 [facility] for visit Narrative* Diagnostic Procedure Only (Routine) - Closed Specialty Diagnoses / Procedures Referred By Christian t Referred To Contact [facility] Diagnoses Encounter for screening mammogram for breast cancer Dense breast tissue Procedures CARLOS ENRIQUE SCREENING W REUBEN SCREENING DIGITAL BREAST TOMOSYNTHESIS BI SCREENING MAMMOGRAPHY BI 2-VIEW BREAST INC CAD Konstantin River MD [address] [place] [address] Phone: tel: fax: [facility] [address] [place] [address] Referral ID Status Reason Start Date Expiration Date V isits Requested Visits Authorized [id number] Closed Auto-Generate d Referral 05/05/2023 06/03/2024 1 1 [facility] for visit Narrative* Transition of Care (Routine) - Closed Specialty Diagnoses / Procedures Referred By Contac t Referred To [facility] Procedures CARDIOVASCULAR MEDICINE OP FOLLOW UP APPT ORDER True Mayers MD [address] [place] [address] Phone: tel: fax: [facility] [place] [address] [place] [address] Referral ID Status Reason Start Date Expiration Date V isits Requested Visits Authorized [id number] Closed PCP Requested Referral 10/19/2023 10/18/2024 1 1 [facility] for visit Narrative* Imaging (Routine) - Closed Specialty Diagnoses / Procedures Referred By Contac t Referred To Contact Radiology Diagnoses Cervical radiculopathy Procedures MR cervical spine wo contrast Samantha Mckenzie, LAY OUT CARPENTER - NEEDLE LOOM WEAVER [address] [place] [address] Phone: tel: fax: Referral ID Status Reason Start Date Expiration Date Visits Re quested Visits Authorized [id number] Closed 07/02/2024 07/02/2025 1 1 [facility] for visit Narrative* Diagnostic Procedure Only (Routine) - Closed Specialty Diagnoses / Procedures Referred By Contac t Referred To Contact XR IMAGING Diagnoses Spinal stenosis in cervical region Radiculopathy, cervical region Procedures XR CERV OTHER 4V AP/LAT/FLX/EXT RADEX SPINE CERVICAL 4 OR 5 VIEWS Suzie Suarez PA-C [address] [place] [address] Phone: tel: fax: [facility] [place] [place] [address] Referral ID Status Reason Start Date Expiration Date V isits Requested Visits Authorized [id number] Closed Auto-Generate d Referral 10/17/2024 11/16/2025 1 1 [facility] Chief Complaint and Reason for Visit Chief Complaint CERV RADIC/RX HERE SP Chief Complaint 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 CARE, PT NE EDS NPP SCREENING Reason for Visit GERD (gastroesophage al reflux disease) Aortic root dilatation Moderate major depression Establishing care with new doctor, encounter for Chronic daily headache Chief Complaint Consult RLQ PAIN Reason for Visit GERD (gastroesophage al reflux disease) RLQ abdominal pain Chief Complaint Admit Date SCREENING May 31, 2024 7:59 am WINTER, HTN June 27, 2024 5:4 1pm OSTEOPENIA September 06, 2024 10:1 7am Chief Complaint Admit Date SCREENING May 31, 2024 7:59 am WINTER, HTN June 27, 2024 5:4 1pm OSTEOPENIA September 06, 2024 10:1 7am HYPERCHOLESTEROLEMIA September 19, 2024 7:3 5am HYPERCHOLESTEROLEMIA September 19, 2024 5:2 6pm Family History No Family History Records Found Relationship Condition Age at Onset Recorded Date/T jennifer father Coronary artery disease Unknown mother Coronary artery disease Unknown Status post coronary artery bypass graft Unknown History of mitral valve replacement Unkno wn Presence of cardiac pacemaker Unknown Marfan's syndrome Unknown brother Marfan's syndrome Unknown Unknown Status post aortic valve replacement Unkn own Atrial fibrillation Unknown Supraventricular tachycardia Unknown Aortic aneurysm and dissection Unknown Relationship Condition Age at Onset Recorded Date/T jennifer Not Specified Malignant neoplasm of cervix Unknown Diabetes mellitus Unknown High blood cholesterol Unknown Anxiety Unknown Arthritis Unknown Depression Unknown Hypertension Unknown Parkinson's disease Unknown father Coronary artery disease Unknown mother Coronary artery disease Unknown Status post coronary artery bypass graft Unknown History of mitral valve replacement Unkno wn Presence of cardiac pacemaker Unknown Marfan's syndrome Unknown brother Marfan's syndrome Unknown Unknown Status post aortic valve replacement Unkn own Atrial fibrillation Unknown Supraventricular tachycardia Unknown Aortic aneurysm and dissection Unknown Aneurysm of abdominal vessel Unknown Advance Directives No Advanced Directives Records Found Advance Directive Response Recorded Date/ Time Living Will Yes October 22 2:01pm Power of Bulk Receiver Yes October 22 020 2:01pm Advance Directive Response Recorded Date/ Time Do you have a Healthcare Power of Bulk Receiver? No June 27, 2024 6:56pm Reason for Referral Specialty Diagnoses / Procedures Referred By Christian shah Referred To Contact Gastroenterology Diagnoses Gastroesophageal reflux disease, unspecified whether esophagitis present Procedures CONSULT TO GASTROENTEROLOGY OFFICE/OUTPATIENT [facility] 60-74 MINUTES Brianna Tijerina, LAY OUT CARPENTER.NEEDLE LOOM WEAVER [address] [place] [address] Referral ID Status Reason Start Date Expiration Date Visits Requested Visits Authorized [id number] Pending Review PCP Requested Referral 12/05/2021 12/05/2022 1 1 Specialty Diagnoses / Procedures Referred By Christian shah Referred To Contact Diagnoses Cervicalgia Cervical radiculopathy Chronic mixed headache syndrome Procedures CONSULT FOR ACUPUNCTURE OFFICE/OUTPATIENT [facility] 60-74 MINUTES Nohemy Davis APRN.NEEDLE LOOM WEAVER [address] [place] [address] Referral ID Status Reason Start Date Expiration Date Visits Requested Visits Authorized [id number] Pending Review PCP Requested Referral 03/31/2022 03/31/2023 1 1 Specialty Diagnoses / Procedures Referred By Contac t Referred To Contact MR IMAGING Diagnoses Cervicalgia Cervical radiculopathy Cervical nerve root impingement Cervical disc herniation Procedures MRI CERVICAL SPINE WO IVCON MRI SPINAL CANAL CERVICAL W/O CONTRAST MATRL Nohemy Davis APRN.NEEDLE LOOM WEAVER [address] [place] [address] Mr Imaging Referral ID Status Reason Start Date Expiration Date Visits Requested Visits Authorized [id number] Pending Review Auto-Generat ed Referral 03/31/2022 04/30/2023 1 1 Specialty Diagnoses / Procedures Referred By Contac t Referred To Contact Diagnoses Anxiety Procedures CONSULT TO PSYCHIATRY OFFICE/OUTPATIENT [facility] 60-74 MINUTES Nohemy Davis APRN.NEEDLE LOOM WEAVER [address] [place], [place] [id number] Referral ID Status Reason Start Date Expiration Date Visits Requested Visits Authorized [id number] Pending Review PCP Requested Referral 03/31/2022 03/31/2023 1 1 Specialty Diagnoses / Procedures Referred By Contac t Referred To Contact Neurology Diagnoses Cervicalgia Marfan's syndrome Chronic mixed headache syndrome Procedures CONSULT TO NEUROLOGY OFFICE/OUTPATIENT [facility] 60-74 MINUTES Nohemy Davis APRN.NEEDLE LOOM WEAVER [address] [place] [address] Referral ID Status Reason Start Date Expiration Date Visits Requested Visits Authorized [id number] Pending Review PCP Requested Referral 03/31/2022 03/31/2023 1 1 Specialty Diagnoses / Procedures Referred By Contac t Referred To Contact Cardiology Diagnoses Marfan's syndrome Aortic root dilation (HCC) Procedures CONSULT TO CARDIOLOGY OFFICE/OUTPATIENT [facility] 60-74 MINUTES Nohemy Davis APRN.NEEDLE LOOM WEAVER [address] [place], [place] [id number] Referral ID Status Reason Start Date Expiration Date Visits Requested Visits Authorized [id number] Pending Review PCP Requested Referral 03/31/2022 03/31/2023 1 1 Specialty Diagnoses / Procedures Referred By Contac t Referred To Contact Gastroenterology Diagnoses Gastroesophageal reflux disease without esophagitis Procedures CONSULT TO GASTROENTEROLOGY OFFICE/OUTPATIENT [facility] 60-74 MINUTES Nohemy Davis APRN.NEEDLE LOOM WEAVER [address] [place] [address] Referral ID Status Reason Start Date Expiration Date Visits Requested Visits Authorized [id number] Pending Review PCP Requested Referral 03/31/2022 03/31/2023 1 1 Specialty Diagnoses / Procedures Referred By Contac t Referred To Contact Orthopedics Diagnoses Ganglion cyst Cervicalgia Procedures CONSULT TO ORTHOPAEDICS OFFICE/OUTPATIENT [facility] 60-74 MINUTES Nohemy Davis APRN.NEEDLE LOOM WEAVER [address] [place] [address] Referral ID Status Reason Start Date Expiration Date Visits Requested Visits Authorized [id number] Pending Review PCP Requested Referral 03/31/2022 03/31/2023 1 1 Specialty Diagnoses / Procedures Referred By Contac t Referred To Contact MR IMAGING Diagnoses Cervicalgia Cervical radiculopathy Cervical nerve root impingement Cervical disc herniation Procedures MRI CERVICAL SPINE WO IVCON MRI SPINAL CANAL CERVICAL W/O CONTRAST MATRL Nohemy Davis APRN.NEEDLE LOOM WEAVER [address] [place] [id number] [place] [address] Referral ID Status Reason Start Date Expiration Date V isits Requested Visits Authorized [id number] Closed Auto-Generate d Referral 03/31/2022 04/30/2023 1 1 Specialty Diagnoses / Procedures Referred By Contac t Referred To Contact Urology Diagnoses Urinary frequency Procedures CONSULT TO UROLOGY OFFICE/OUTPATIENT [facility] 60 MINUTES Aicha Kemp APRN.NEEDLE LOOM WEAVER [address] [place] [address] Referral ID Status Reason Start Date Expiration Date Visits Requested Visits Authorized [id number] Authorized PCP Requested Referral 04/12/2023 04/11/2024 1 1 Specialty Diagnoses / Procedures Referred By Contac t Referred To Contact [facility] Diagnoses Cervical radiculopathy Procedures CONSULT TO PHYSICAL THERAPY PHYSICAL THERAPY EVALUATION HIGH COMPLEX 45 MINS Nohemy Davis APRN.NEEDLE LOOM WEAVER [address] [place] [address] [facility] [place] [facility] [place] [address] Referral ID Status Reason Start Date Expiration Date Visits Requested Visits Authorized [id number] Pending Review Auto-Generat ed Referral 08/15/2023 08/14/2024 1 1 Specialty Diagnoses / Procedures Referred By Contac t Referred To Contact XR IMAGING Diagnoses Cervical radiculopathy Cervical disc herniation Procedures XR CERV OTHER 4V AP/LAT/OBL RADEX SPINE CERVICAL 4 OR 5 VIEWS Nohemy Davis APRN.NEEDLE LOOM WEAVER [address] [place] [address] Xr Imaging [facility] Referral ID Status Reason Start Date Expiration Date V isits Requested Visits Authorized [id number] Closed Auto-Generate d Referral 08/15/2023 09/13/2024 1 1 Specialty Diagnoses / Procedures Referred By Femiac t Referred To Contact CT IMAGING Diagnoses Marfan's syndrome Aortic root dilation (HCC) Family history of Marfan syndrome Chest pain, unspecified type Procedures CTA CHEST (GATED) W IVCON CT ANGIOGRAPHY CHEST W/CONTRAST/NONCONTRAST Beverly Dawson MD [address] [facility] [place] [address] Ct [facility] [place] [address] Referral ID Status Reason Start Date Expiration Date Visits Requested Visits Authorized [id number] New Request Auto-Generat ed Referral 10/05/2023 11/03/2024 1 1 Specialty Diagnoses / Procedures Referred By Contac t Referred To Contact [facility] Diagnoses Marfan's syndrome Aortic root dilation (HCC) Family history of Marfan syndrome Procedures STRESS ECHO TREADMILL ECHO TTHRC R-T 2D W/WO M-MODE COMPLETE REST&ST Beverly Dawson MD [address] [place] [address] [facility] [address] [address] Referral ID Status Reason Start Date Expiration Date Visits Requested Visits Authorized [id number] New Request Auto-Generat ed Referral 10/05/2023 10/04/2024 1 1 Referral ID Status Reason Start Date Expiration Date V isits Requested Visits Authorized [id number] Closed Auto-Generate d Referral 10/05/2023 11/03/2024 1 1 Specialty Diagnoses / Procedures Referred By Contac t Referred To Contact [facility] [place] Procedures CARDIOVASCULAR MEDICINE OP FOLLOW UP APPT ORDER True Mayers MD [address] [place] [address] [address] [address] Referral ID Status Reason Start Date Expiration Date Visits Requested Visits Authorized [id number] Ref Not Required PCP Requested Referral 10/19/2023 10/18/2024 1 1 Specialty Diagnoses / Procedures Referred By Contac t Referred To Contact General Surgery Diagnoses Gastroesophageal reflux disease without esophagitis LPRD (laryngopharyngeal reflux disease) Procedures CONSULT TO GENERAL SURGERY OFFICE/OUTPATIENT [facility] 60 MINUTES Nohemy Davis APRN.CNP [address] [place] [address] Referral ID Status Reason Start Date Expiration Date Visits Requested Visits Authorized [id number] Authorized PCP Requested Referral 11/21/2023 11/20/2024 1 1 Specialty Diagnoses / Procedures Referred By Contac t Referred To Contact [facility] [place] Diagnoses Cervical radiculopathy at C6 Procedures CONSULT TO [facility] OFFICE/OUTPATIENT [facility] 60 MINUTES Ameena Larsen MD [address] [place] [address] Referral ID Status Reason Start Date Expiration Date Visits Requested Visits Authorized [id number] Authorized PCP Requested Referral 03/12/2024 03/12/2025 1 1 Specialty Diagnoses / Procedures Referred By Contac t Referred To Contact Dermatology Diagnoses Alopecia areata Procedures CONSULT TO DERMATOLOGY Ameena Larsen MD [address] [place] [address] Referral ID Status Reason Start Date Expiration Date Visits Requested Visits Authorized [id number] Authorized PCP Requested Referral 03/12/2024 03/12/2025 1 1 Summary Purpose Additional Source Comments Source Comments (unrecognize d section and content) In the event this informatio n is protected by the Federal Confidentiality of Alcohol and Drug Abuse Patient Records regulations: The Federal rules restrict any use of the information to criminally investigate or prosecute any alcohol or drug abuse patient.[facility] the event this information is protected by the Federal Confidentiality of Alcohol and Drug Abuse Patient Records regulations: The Federal rules restrict any use of the information to criminally investigate or prosecute any alcohol or drug abuse patient.[facility] CenterIn the event this information is protected by the Federal Confidentiality of Alcohol and Drug Abuse Patient Records regulations: The Federal rules restrict any use of the information to criminally investigate or prosecute any alcohol or drug abuse patient.[facility] CenterIn the event this information is protected by the Federal Confidentiality of Alcohol and Drug Abuse Patient Records regulations: The Federal rules restrict any use of the information to criminally investigate or prosecute any alcohol or drug abuse patient.[facility] CenterIn the event this information is protected by the Federal Confidentiality of Alcohol and Drug Abuse Patient Records regulations: The Federal rules restrict any use of the information to criminally investigate or prosecute any alcohol or drug abuse patient.[facility] CenterIn the event this information is protected by the Federal Confidentiality of Alcohol and Drug Abuse Patient Records regulations: The Federal rules restrict any use of the information to criminally investigate or prosecute any alcohol or drug abuse patient.[facility] CenterIn the event this information is protected by the Federal Confidentiality of Alcohol and Drug Abuse Patient Records regulations: The Federal rules restrict any use of the information to criminally investigate or prosecute any alcohol or drug abuse patient.[facility] CenterIn the event this information is protected by the Federal Confidentiality of Alcohol and Drug Abuse Patient Records regulations: The Federal rules restrict any use of the information to criminally investigate or prosecute any alcohol or drug abuse patient.[facility] CenterIn the event this information is protected by the Federal Confidentiality of Alcohol and Drug Abuse Patient Records regulations: The Federal rules restrict any use of the information to criminally investigate or prosecute any alcohol or drug abuse patient.[facility] CenterIn the event this information is protected by the Federal Confidentiality of Alcohol and Drug Abuse Patient Records regulations: The Federal rules restrict any use of the information to criminally investigate or prosecute any alcohol or drug abuse patient.[facility] CenterIn the event this information is protected by the Federal Confidentiality of Alcohol and Drug Abuse Patient Records regulations: The Federal rules restrict any use of the information to criminally investigate or prosecute any alcohol or drug abuse patient.[facility] CenterIn the event this information is protected by the Federal Confidentiality of Alcohol and Drug Abuse Patient Records regulations: The Federal rules restrict any use of the information to criminally investigate or prosecute any alcohol or drug abuse patient.[facility] CenterIn the event this information is protected by the Federal Confidentiality of Alcohol and Drug Abuse Patient Records regulations: The Federal rules restrict any use of the information to criminally investigate or prosecute any alcohol or drug abuse patient.[facility] CenterIn the event this information is protected by the Federal Confidentiality of Alcohol and Drug Abuse Patient Records regulations: The Federal rules restrict any use of the information to criminally investigate or prosecute any alcohol or drug abuse patient.[facility] CenterIn the event this information is protected by the Federal Confidentiality of Alcohol and Drug Abuse Patient Records regulations: The Federal rules restrict any use of the information to criminally investigate or prosecute any alcohol or drug abuse patient.[facility] ClinicIn the event this information is protected by the Federal Confidentiality of Alcohol and Drug Abuse Patient Records regulations: The Federal rules restrict any use of the information to criminally investigate or prosecute any alcohol or drug abuse patient.[facility] CenterIn the event this information is protected by the Federal Confidentiality of Alcohol and Drug Abuse Patient Records regulations: The Federal rules restrict any use of the information to criminally investigate or prosecute any alcohol or drug abuse patient.[facility] CenterIn the event this information is protected by the Federal Confidentiality of Alcohol and Drug Abuse Patient Records regulations: The Federal rules restrict any use of the information to criminally investigate or prosecute any alcohol or drug abuse patient.[facility] CenterIn the event this information is protected by the Federal Confidentiality of Alcohol and Drug Abuse Patient Records regulations: The Federal rules restrict any use of the information to criminally investigate or prosecute any alcohol or drug abuse patient.[facility] CenterIn the event this information is protected by the Federal Confidentiality of Alcohol and Drug Abuse Patient Records regulations: The Federal rules restrict any use of the information to criminally investigate or prosecute any alcohol or drug abuse patient.[facility] CenterIn the event this information is protected by the Federal Confidentiality of Alcohol and Drug Abuse Patient Records regulations: The Federal rules restrict any use of the information to criminally investigate or prosecute any alcohol or drug abuse patient.[facility] CenterIn the event this information is protected by the Federal Confidentiality of Alcohol and Drug Abuse Patient Records regulations: The Federal rules restrict any use of the information to criminally investigate or prosecute any alcohol or drug abuse patient.[facility] CenterIn the event this information is protected by the Federal Confidentiality of Alcohol and Drug Abuse Patient Records regulations: The Federal rules restrict any use of the information to criminally investigate or prosecute any alcohol or drug abuse patient.[facility] CenterIn the event this information is protected by the Federal Confidentiality of Alcohol and Drug Abuse Patient Records regulations: The Federal rules restrict any use of the information to criminally investigate or prosecute any alcohol or drug abuse patient.[facility] CenterIn the event this information is protected by the Federal Confidentiality of Alcohol and Drug Abuse Patient Records regulations: The Federal rules restrict any use of the information to criminally investigate or prosecute any alcohol or drug abuse patient.[facility] CenterIn the event this information is protected by the Federal Confidentiality of Alcohol and Drug Abuse Patient Records regulations: The Federal rules restrict any use of the information to criminally investigate or prosecute any alcohol or drug abuse patient.[facility] CenterIn the event this information is protected by the Federal Confidentiality of Alcohol and Drug Abuse Patient Records regulations: The Federal rules restrict any use of the information to criminally investigate or prosecute any alcohol or drug abuse patient.[facility] CenterIn the event this information is protected by the Federal Confidentiality of Alcohol and Drug Abuse Patient Records regulations: The Federal rules restrict any use of the information to criminally investigate or prosecute any alcohol or drug abuse patient.[facility] CenterIn the event this information is protected by the Federal Confidentiality of Alcohol and Drug Abuse Patient Records regulations: The Federal rules restrict any use of the information to criminally investigate or prosecute any alcohol or drug abuse patient.[facility] CenterIn the event this information is protected by the Federal Confidentiality of Alcohol and Drug Abuse Patient Records regulations: The Federal rules restrict any use of the information to criminally investigate or prosecute any alcohol or drug abuse patient.[facility] CenterIn the event this information is protected by the Federal Confidentiality of Alcohol and Drug Abuse Patient Records regulations: The Federal rules restrict any use of the information to criminally investigate or prosecute any alcohol or drug abuse patient.[facility] CenterIn the event this information is protected by the Federal Confidentiality of Alcohol and Drug Abuse Patient Records regulations: The Federal rules restrict any use of the information to criminally investigate or prosecute any alcohol or drug abuse patient.[facility] CenterIn the event this information is protected by the Federal Confidentiality of Alcohol and Drug Abuse Patient Records regulations: The Federal rules restrict any use of the information to criminally investigate or prosecute any alcohol or drug abuse patient.[facility] CenterIn the event this information is protected by the Federal Confidentiality of Alcohol and Drug Abuse Patient Records regulations: The Federal rules restrict any use of the information to criminally investigate or prosecute any alcohol or drug abuse patient.[facility] CenterIn the event this information is protected by the Federal Confidentiality of Alcohol and Drug Abuse Patient Records regulations: The Federal rules restrict any use of the information to criminally investigate or prosecute any alcohol or drug abuse patient.[facility] CenterIn the event this information is protected by the Federal Confidentiality of Alcohol and Drug Abuse Patient Records regulations: The Federal rules restrict any use of the information to criminally investigate or prosecute any alcohol or drug abuse patient.[facility] CenterIn the event this information is protected by the Federal Confidentiality of Alcohol and Drug Abuse Patient Records regulations: The Federal rules restrict any use of the information to criminally investigate or prosecute any alcohol or drug abuse patient.[facility] CenterIn the event this information is protected by the Federal Confidentiality of Alcohol and Drug Abuse Patient Records regulations: The Federal rules restrict any use of the information to criminally investigate or prosecute any alcohol or drug abuse patient.[facility] CenterIn the event this information is protected by the Federal Confidentiality of Alcohol and Drug Abuse Patient Records regulations: The Federal rules restrict any use of the information to criminally investigate or prosecute any alcohol or drug abuse patient.[facility] CenterIn the event this information is protected by the Federal Confidentiality of Alcohol and Drug Abuse Patient Records regulations: The Federal rules restrict any use of the information to criminally investigate or prosecute any alcohol or drug abuse patient.[facility] CenterIn the event this information is protected by the Federal Confidentiality of Alcohol and Drug Abuse Patient Records regulations: The Federal rules restrict any use of the information to criminally investigate or prosecute any alcohol or drug abuse patient.[facility] CenterIn the event this information is protected by the Federal Confidentiality of Alcohol and Drug Abuse Patient Records regulations: The Federal rules restrict any use of the information to criminally investigate or prosecute any alcohol or drug abuse patient.[facility] CenterIn the event this information is protected by the Federal Confidentiality of Alcohol and Drug Abuse Patient Records regulations: The Federal rules restrict any use of the information to criminally investigate or prosecute any alcohol or drug abuse patient.[facility] CenterIn the event this information is protected by the Federal Confidentiality of Alcohol and Drug Abuse Patient Records regulations: The Federal rules restrict any use of the information to criminally investigate or prosecute any alcohol or drug abuse patient.[facility] CenterIn the event this information is protected by the Federal Confidentiality of Alcohol and Drug Abuse Patient Records regulations: The Federal rules restrict any use of the information to criminally investigate or prosecute any alcohol or drug abuse patient.[facility] CenterIn the event this information is protected by the Federal Confidentiality of Alcohol and Drug Abuse Patient Records regulations: The Federal rules restrict any use of the information to criminally investigate or prosecute any alcohol or drug abuse patient.[facility] CenterIn the event this information is protected by the Federal Confidentiality of Alcohol and Drug Abuse Patient Records regulations: The Federal rules restrict any use of the information to criminally investigate or prosecute any alcohol or drug abuse patient.[facility] CenterIn the event this information is protected by the Federal Confidentiality of Alcohol and Drug Abuse Patient Records regulations: The Federal rules restrict any use of the information to criminally investigate or prosecute any alcohol or drug abuse patient.[facility] CenterIn the event this information is protected by the Federal Confidentiality of Alcohol and Drug Abuse Patient Records regulations: The Federal rules restrict any use of the information to criminally investigate or prosecute any alcohol or drug abuse patient.[facility] CenterIn the event this information is protected by the Federal Confidentiality of Alcohol and Drug Abuse Patient Records regulations: The Federal rules restrict any use of the information to criminally investigate or prosecute any alcohol or drug abuse patient.[facility] CenterIn the event this information is protected by the Federal Confidentiality of Alcohol and Drug Abuse Patient Records regulations: The Federal rules restrict any use of the information to criminally investigate or prosecute any alcohol or drug abuse patient.[facility] CenterIn the event this information is protected by the Federal Confidentiality of Alcohol and Drug Abuse Patient Records regulations: The Federal rules restrict any use of the information to criminally investigate or prosecute any alcohol or drug abuse patient.[facility] CenterIn the event this information is protected by the Federal Confidentiality of Alcohol and Drug Abuse Patient Records regulations: The Federal rules restrict any use of the information to criminally investigate or prosecute any alcohol or drug abuse patient.[facility] CenterIn the event this information is protected by the Federal Confidentiality of Alcohol and Drug Abuse Patient Records regulations: The Federal rules restrict any use of the information to criminally investigate or prosecute any alcohol or drug abuse patient.[facility] CenterIn the event this information is protected by the Federal Confidentiality of Alcohol and Drug Abuse Patient Records regulations: The Federal rules restrict any use of the information to criminally investigate or prosecute any alcohol or drug abuse patient.[facility] CenterIn the event this information is protected by the Federal Confidentiality of Alcohol and Drug Abuse Patient Records regulations: The Federal rules restrict any use of the information to criminally investigate or prosecute any alcohol or drug abuse patient.[facility] CenterIn the event this information is protected by the Federal Confidentiality of Alcohol and Drug Abuse Patient Records regulations: The Federal rules restrict any use of the information to criminally investigate or prosecute any alcohol or drug abuse patient.[facility] CenterIn the event this information is protected by the Federal Confidentiality of Alcohol and Drug Abuse Patient Records regulations: The Federal rules restrict any use of the information to criminally investigate or prosecute any alcohol or drug abuse patient.[facility] CenterIn the event this information is protected by the Federal Confidentiality of Alcohol and Drug Abuse Patient Records regulations: The Federal rules restrict any use of the information to criminally investigate or prosecute any alcohol or drug abuse patient.[facility] CenterIn the event this information is protected by the Federal Confidentiality of Alcohol and Drug Abuse Patient Records regulations: The Federal rules restrict any use of the information to criminally investigate or prosecute any alcohol or drug abuse patient.[facility] CenterIn the event this information is protected by the Federal Confidentiality of Alcohol and Drug Abuse Patient Records regulations: The Federal rules restrict any use of the information to criminally investigate or prosecute any alcohol or drug abuse patient.[facility] CenterIn the event this information is protected by the Federal Confidentiality of Alcohol and Drug Abuse Patient Records regulations: The Federal rules restrict any use of the information to criminally investigate or prosecute any alcohol or drug abuse patient.[facility] CenterIn the event this information is protected by the Federal Confidentiality of Alcohol and Drug Abuse Patient Records regulations: The Federal rules restrict any use of the information to criminally investigate or prosecute any alcohol or drug abuse patient.[facility] CenterIn the event this information is protected by the Federal Confidentiality of Alcohol and Drug Abuse Patient Records regulations: The Federal rules restrict any use of the information to criminally investigate or prosecute any alcohol or drug abuse patient.[facility] CenterIn the event this information is protected by the Federal Confidentiality of Alcohol and Drug Abuse Patient Records regulations: The Federal rules restrict any use of the information to criminally investigate or prosecute any alcohol or drug abuse patient.[facility] ClinicIn the event this information is protected by the Federal Confidentiality of Alcohol and Drug Abuse Patient Records regulations: The Federal rules restrict any use of the information to criminally investigate or prosecute any alcohol or drug abuse patient.[facility] CenterIn the event this information is protected by the Federal Confidentiality of Alcohol and Drug Abuse Patient Records regulations: The Federal rules restrict any use of the information to criminally investigate or prosecute any alcohol or drug abuse patient.[facility] CenterIn the event this information is protected by the Federal Confidentiality of Alcohol and Drug Abuse Patient Records regulations: The Federal rules restrict any use of the information to criminally investigate or prosecute any alcohol or drug abuse patient.[facility] CenterIn the event this information is protected by the Federal Confidentiality of Alcohol and Drug Abuse Patient Records regulations: The Federal rules restrict any use of the information to criminally investigate or prosecute any alcohol or drug abuse patient.[facility] CenterIn the event this information is protected by the Federal Confidentiality of Alcohol and Drug Abuse Patient Records regulations: The Federal rules restrict any use of the information to criminally investigate or prosecute any alcohol or drug abuse patient.[facility] CenterIn the event this information is protected by the Federal Confidentiality of Alcohol and Drug Abuse Patient Records regulations: The Federal rules restrict any use of the information to criminally investigate or prosecute any alcohol or drug abuse patient.[facility] CenterIn the event this information is protected by the Federal Confidentiality of Alcohol and Drug Abuse Patient Records regulations: The Federal rules restrict any use of the information to criminally investigate or prosecute any alcohol or drug abuse patient.[facility] CenterIn the event this information is protected by the Federal Confidentiality of Alcohol and Drug Abuse Patient Records regulations: The Federal rules restrict any use of the information to criminally investigate or prosecute any alcohol or drug abuse patient.[facility] CenterIn the event this information is protected by the Federal Confidentiality of Alcohol and Drug Abuse Patient Records regulations: The Federal rules restrict any use of the information to criminally investigate or prosecute any alcohol or drug abuse patient.[facility] CenterIn the event this information is protected by the Federal Confidentiality of Alcohol and Drug Abuse Patient Records regulations: The Federal rules restrict any use of the information to criminally investigate or prosecute any alcohol or drug abuse patient.[facility] CenterIn the event this information is protected by the Federal Confidentiality of Alcohol and Drug Abuse Patient Records regulations: The Federal rules restrict any use of the information to criminally investigate or prosecute any alcohol or drug abuse patient.[facility] CenterIn the event this information is protected by the Federal Confidentiality of Alcohol and Drug Abuse Patient Records regulations: The Federal rules restrict any use of the information to criminally investigate or prosecute any alcohol or drug abuse patient.[facility] CenterIn the event this information is protected by the Federal Confidentiality of Alcohol and Drug Abuse Patient Records regulations: The Federal rules restrict any use of the information to criminally investigate or prosecute any alcohol or drug abuse patient.[facility] CenterIn the event this information is protected by the Federal Confidentiality of Alcohol and Drug Abuse Patient Records regulations: The Federal rules restrict any use of the information to criminally investigate or prosecute any alcohol or drug abuse patient.[facility] Reason for Visit (unrecogniz ed section and content) Reason Comments PT Eval Specialty Diagnoses / Procedures Referred By Christian shah Referred To Contact [facility] Diagnoses Cervical radiculopathy Procedures CONSULT TO PHYSICAL THERAPY PHYSICAL THERAPY EVALUATION HIGH COMPLEX 45 MINS Nohemy Davis APRN.NE[employer] LOOM WEAVER [address] [place] [address] [facility] [address] [address] Referral ID Status Reason Start Date Expiration Date Visits Requested Visits Authorized [id number] Authorized Auto-Generat ed Referral 02/28/2023 02/28/2024 99 99 Reason Comments Scheduling Reason Comments Joint Pain Specialty Diagnoses / Procedures Referred By Christian shah Referred To Contact Rheumatology Diagnoses Multiple joint pain Fatigue, unspecified type Marfan's syndrome Procedures CONSULT TO RHEUM/IMMUN DISEASE OFFICE/OUTPATIENT [facility] 60-74 MINUTES Emily Espinoza APRN.[employer]OM WEAVER [address] [place] [address] Referral ID Status Reason Start Date Expiration Date Visits Requested Visits Authorized [id number] Pending Review PCP Requested Referral 05/27/2021 05/27/2022 1 1 Reason Onset Date Comments Population Health Navigation Outreach 08/27/2021 HCC Reason Comments Refill Request Reason Comments Appointment Reason Comments Urinary Frequency burning with urinati on x 10 days Reason Comments Results, Lab Reason Comments Patient Request Reason Onset Date Comments Population Health Navigation Outreach 12/25/2021 [facility] Reason Comments Assessment Patient Education Reason Comments UTI symptoms started abo ut 3 weeks ago tried treating it OTC with cranberry and zinc with no relief Ganglion Cyst right wrist Reason Comments wrist cyst on right wrist have noticed a cyst for about 6 weeks but last two weeks has had tingling in arm up into neck with numbness and burning sensation Consult requesting referral for insurance to see cardiology, GI, psychiatry, and neurology Hypertension in middle of night o f 138/80 and bed shaking until calms down Reason Comments New Ganglion cyst Pain Ganglion cyst Specialty Diagnoses / Procedures Referred By Christian shah Referred To Contact Orthopedics Diagnoses Ganglion cyst Cervicalgia Procedures CONSULT TO ORTHOPAEDICS OFFICE/OUTPATIENT [facility] 60-74 MINUTES Nohemy Davis APRN.[employer] [address] [place] [address] Referral ID Status Reason Start Date Expiration Date Visits Requested Visits Authorized [id number] Pending Review PCP Requested Referral 03/31/2022 03/31/2023 1 1 Reason Onset Date Comments Refill Request 04/30/2022 Reason Comments New Patient Neurologic Problem Specialty Diagnoses / Procedures Referred By Christian shah Referred To Contact [facility] Diagnoses Cervicalgia Marfan's syndrome Chronic mixed headache syndrome Procedures CONSULT TO NEUROLOGY OFFICE/OUTPATIENT [facility] 60-74 MINUTES Nohemy Davis APRN.[employer] WE[employer]ER [address] [place] [address] [facility] [place] [address] [place] [address] [place] [address] Referral ID Status Reason Start Date Expiration Date V isits Requested Visits Authorized [id number] Closed PCP Requested Referral 03/31/2022 03/31/2023 1 1 Reason Comments Well Woman Reason Comments Established Patient Review CT scan done 05/27/2022 at [facility] Reason Comments Acute Visit Painful sternum, sti ff muscles, fatigue Reason Comments Orders Specialty Diagnoses / Procedures Referred By Contac t Referred To Contact MR IMAGING Diagnoses Cervicalgia Cervical radiculopathy Cervical nerve root impingement Cervical disc herniation Procedures MRI CERVICAL SPINE WO IVCON MRI SPINAL CANAL CERVICAL W/O CONTRAST MATRL Nohemy Davis, JOHNATHAN.[employer] WE[employer]ER [address] [place] [address] [place] [address] Referral ID Status Reason Start Date Expiration Date V isits Requested Visits Authorized [id number] Closed Auto-Generate d Referral 03/31/2022 04/30/2023 1 1 Reason Comments Radiology US Specialty Diagnoses / Procedures Referred By Contac t Referred To Contact [facility] IMAG[facility] Diagnoses Thyromegaly Procedures US THYROID/PARATHYROID US SOFT TISSUE HEAD & NECK REAL TIME IMGE Lenny Dias MD [address] [place] [address] [place] [address] Referral ID Status Reason Start Date Expiration Date V isits Requested Visits Authorized [id number] Closed Auto-Generate d Referral 01/04/2023 02/03/2024 1 1 Reason Comments Urinary Frequency Frequency and burnin g x 4 days Reason Onset Date Comments Population Health Navigation Outreach 04/15/2023 [facility] Reason Onset Date Comments Refill Request 04/21/2023 Reason Comments Well Woman Reason Comments Radiology US Specialty Diagnoses / Procedures Referred By Contac t Referred To Contact [facility] IM[facility] Diagnoses Pelvic pain in female Procedures US FEMALE PELVIS TRANSVAG US TRANSVAGINAL Konstantin River MD [address] [place] [address] [place] [address] Referral ID Status Reason Start Date Expiration Date V isits Requested Visits Authorized [id number] Closed Auto-Generate d Referral 05/05/2023 06/03/2024 1 1 Reason Comments Results Reason Onset Date Comments Refill Request 04/22/2023 Reason Comments Endometrial Biopsy Reason Onset Date Comments Population Health Navigation Outreach 06/28/2023 B[facility] [place] CURRENT ROSTER workbench - AWV, HCC gap closure - [place] [facility] Reason Comments Wellness Reason Comments Marfans Reason Comments Radiology CT Specialty Diagnoses / Procedures Referred By Christian shah Referred To Contact CT IMAGING Diagnoses Marfan's syndrome Aortic root dilation (HCC) Family history of Marfan syndrome Chest pain, unspecified type Procedures CTA CHEST (GATED) W IVCON CT ANGIOGRAPHY CHEST W/CONTRAST/NONCONTRAST Beverly Dawson MD [address] [place] [id number] [facility] [place] [address] Referral ID Status Reason Start Date Expiration Date V isits Requested Visits Authorized [id number] Closed Auto-Generate d Referral 10/05/2023 11/03/2024 1 1 Reason Comments Physical Therapy Reason Comments Recheck Neck Pain Reason Comments Orders Reason Comments Dizziness Reason Comments Medication Problem had stopped cymbalta as she felt that the PT was helping with her pain and didn't need it anymoreStarted with dizziness/nausea on Tuesday and Tuesday started with mood changes and crying for no reason. Reason Onset Date Comments Refill Request 03/01/2024 Reason Comments Patient Update Reason Comments Recheck BP and pulse Reason Comments Yearly Exam Reason Comments Same Day Appointment elevated blood pres sures, c/o SOB,dizzy, elevated heart rate, patient spoke with cardiology started on new med HCTZ Reason Comments New Patient Pinched nerve C-6, C -7. Has Discs Reason Comments Eczematous dermatitis follow up Reason Onset Date Comments Appointment Request 08/13/2024 Results 08/13/2024 Reason Comments Mass Reason Comments Follow-up Cervical MRI Reason Comments [facility] Pre-Certification Reason Comments Results Labs 09/11 Reason Comments New Patient Neck Pain Patient states havin g neck pain that radiates down right arm. Reason Comments Consult Reason Comments Spirometry Specialty Diagnoses / Procedures Referred By Christian shah Referred [facility] Diagnoses Shortness of breath Procedures SPIROMETRY - BASELINE AND POST DILATOR BRNCDILAT RSPSE SPMTRY PRE&POST-BRNCDILAT ADMN Ben Franklin APRN.[employer] WEAVER [address] [place] [address] Phone: tel: fax: [address] [address] Referral ID Status Reason Start Date Expiration Date V isits Requested Visits Authorized [id number] Closed Auto-Generate d Referral 11/01/2024 02/27/2025 1 1 Specialty Diagnoses / Procedures Referred By Contac t Referred To [facility] [place] Diagnoses Shortness of breath Procedures NITRIC OXIDE, EXHALED NITRIC OXIDE GAS DETERMINATION [facility] Ben, LAY OUT CARPENTER.[facility] [address] [place] [address] Phone: tel: fax: [address] [address] Referral ID Status Reason Start Date Expiration Date V isits Requested Visits Authorized [id number] Closed Auto-Generate d Referral 11/01/2024 02/27/2025 1 1 Specialty Diagnoses / Procedures Referred By Contac t Referred To [facility] [place] Diagnoses Shortness of breath Procedures LUNG DIFFUSION CAPACITY (DLCO) DIFFUSING CAPACITY LangleyBen, LAY OUT CARPENTER.[employer] [address] [place] [address] Phone: tel: fax: [address] [address] Referral ID Status Reason Start Date Expiration Date V isits Requested Visits Authorized [id number] Closed Auto-Generate d Referral 11/01/2024 02/27/2025 1 1 Specialty Diagnoses / Procedures Referred By Contac t Referred To [facility] Diagnoses Shortness of breath Procedures LUNG VOLUMES LangleyBen, LAY OUT CARPENTER.[employer] WE[employer] [address] [place] [address] Phone: tel: fax: [address] [address] Referral ID Status Reason Start Date Expiration Date V isits Requested Visits Authorized [id number] Closed Auto-Generate d Referral 11/01/2024 02/27/2025 1 1 Reason Comments Appointment Faxed General Surgery Consult Dm Ramirez Care Teams (unrecognized sec tion and content) Operater Relationship Specialty Start Date End Date Aba Del Toro MD [address] [place], [place] [id number] PCP - General Internal Medicine 03/05/21 Ramona Hagen Referring Family Practice 03/08/18 True Mayers MD [address] [place] [address] Primary Staff Physician Cardiology 05/16/18 Operater Relationship Specialty Start Date End Date Aba Del Toro MD [address] [place] [address] PCP - General Internal Medicine 03/05/21 Ramona Hagen Referring Family Practice 03/08/18 True Mayers MD [address] [facility] [place] [address] Primary Staff Physician Cardiology 05/16/18 Operater Relationship Specialty Start Date End Date Aba Del Toro MD [address] [place] [address] PCP - General Internal Medicine 03/05/21 Ramona Hagen Referring Family Practice 03/08/18 True Mayers MD [address] [place] [address] Primary Staff Physician Cardiology 05/16/18 Operater Relationship Specialty Start Date End Date Aba Del Toro MD [address] [place], [place] [address] PCP - General Internal Medicine 03/05/21 Ramona Hagen Referring Family Practice 03/08/18 True Mayers MD [address] [place], [place] [id number] Primary Staff Physician Cardiology 05/16/18 Operater Relationship Specialty Start Date End Date Aba Del Toro MD [address] [place], [place] [address] PCP - General Internal Medicine 03/05/21 Ramona Hagen Referring Family Practice 03/08/18 True Mayers MD [address] [place] [address] Primary Staff Physician Cardiology 05/16/18 Operater Relationship Specialty Start Date End Date Aba Del Toro MD [address] [place] [address] PCP - General Internal Medicine 03/05/21 Ramona Hagen Referring Family Practice 03/08/18 True Mayers MD [address] [place] [address] Primary Staff Physician Cardiology 05/16/18 Operater Relationship Specialty Start Date End Date Aba Del Toro MD [address] [place], [place] [address] PCP - General Internal Medicine 03/05/21 Ramona Hagen Referring Family Medicine 03/08/18 True Mayers MD [address] [place], [place] [id number] Primary Staff Physician Cardiology 05/16/18 Operater Relationship Specialty Start Date End Date Aba Del Toro MD [address] [place] [address] PCP - General Internal Medicine 03/05/21 Ramona Hagen Referring Family Medicine 03/08/18 True Mayers MD [address] [place] [address] Primary Staff Physician Cardiology 05/16/18 Operater Relationship Specialty Start Date End Date Aba Del Toro MD [address] [place] [address] PCP - General Internal Medicine 03/05/21 Ramona Hagen Referring Family Medicine 03/08/18 True Mayers MD [address] [place] [address] Primary Staff Physician Cardiology 05/16/18 Operater Relationship Specialty Start Date End Date Aba Del Toro MD [address] [place] [address] PCP - General Internal Medicine 03/05/21 Ramona Hagen Referring Family Medicine 03/08/18 True Mayers MD [address] [place] [address] Primary Staff Physician Cardiology 05/16/18 Operater Relationship Specialty Start Date End Date Lenny Dumas MD [address] [place] [address] PCP - General Internal Medicine 02/15/22 Ramona Hagen Referring Family Medicine 03/08/18 True Mayers MD [address] [place] [address] Primary Staff Physician Cardiology 05/16/18 Operater Relationship Specialty Start Date End Date Lenny Dumas MD [address] [place] [address] PCP - General Internal Medicine 02/15/22 Ramona Hagen MD Referring Family Medicine 03/08/18 True Mayers MD [address] [place] [address] Primary Staff Physician Cardiology 05/16/18 Operater Relationship Specialty Start Date End Date Lenny Dumas MD [address] [place] [address] PCP - General Internal Medicine 02/15/22 Rmaona Hagen MD Referring Family Medicine 03/08/18 True Mayers MD [address] [place] [address] Primary Staff Physician Cardiology 05/16/18 Operater Relationship Specialty Start Date End Date Lenny Dumas MD [address] [place] [address] PCP - General Internal Medicine 02/15/22 Ramona Hagen MD Referring Family Medicine 03/08/18 True Mayers MD [address] [place] [address] Primary Staff Physician Cardiology 05/16/18 Operater Relationship Specialty Start Date End Date Lenny Dumas MD [address] [place], [place] [id number] PCP - General Internal Medicine 02/15/22 Ramona Hagen MD Referring Family Medicine 03/08/18 True Mayers MD [address] [place] [address] Primary Staff Physician Cardiology 05/16/18 Team Status: Active Member Role Status Dates Dr. Alton Espinal MD Family Provider Active Dr. Lenny Dumas MD Primary Care Provider Active Team Status: Inactive Member Role Status Dates Dr. Gabriela Shaffer MD Referring Provider Active Nadia Ramirez CLERK RATING, CLERK RATING-C Attending Provider Active Dr. Aba Del Toro MD Primary Care Provider Active Team Status: Inactive Member Role Status Dates Dr. Lenny Dumas MD Primary Care Provider Active Nadia Ramirez CLERK RATING, CLERK RATING-C Attending Provider, [facility] Provider Active Operater Relationship Specialty Start Date End Date Lenny Dumas MD [address] [place], [place] [id number] PCP - General Internal Medicine 02/15/22 Ramona Hagen MD Referring Family Medicine 03/08/18 True Mayers MD [address] [place] [address] Primary Staff Physician Cardiology 05/16/18 Operater Relationship Specialty Start Date End Date Lenny Dumas MD [address] [place] [address] PCP - General Internal Medicine 02/15/22 Ramona Hagen MD Referring Family Medicine 03/08/18 True Mayers MD [address] [place], [place] [id number] Primary Staff Physician Cardiology 05/16/18 Operater Relationship Specialty Start Date End Date Lenny Dumas MD [address] [place] [address] PCP - General Internal Medicine 02/15/22 Ramona Hagen MD Referring Family Medicine 03/08/18 True Mayers MD [address] [place] [address] Primary Staff Physician Cardiology 05/16/18 Operater Relationship Specialty Start Date End Date Lenny Dumas MD [address] [place] [address] PCP - General Internal Medicine 02/15/22 Ramona Hagen MD Referring Family Medicine 03/08/18 True Mayers MD [address] [place] [address] Primary Staff Physician Cardiology 05/16/18 Operater Relationship Specialty Start Date End Date Lenny Dumas MD [address] [place] [address] PCP - General Internal Medicine 02/15/22 Ramona Hagen MD Referring Family Medicine 03/08/18 True Mayers MD [address] [place] [address] Primary Staff Physician Cardiology 05/16/18 Operater Relationship Specialty Start Date End Date Lenny Dumas MD [address] [place], [place] [address]771 PCP - General Internal Medicine 02/15/22 Ramona Hagen MD Referring Family Medicine 03/08/18 True Mayers MD [address] [place] [address] Primary Staff Physician Cardiology 05/16/18 Operater Relationship Specialty Start Date End Date Lenny Dumas MD [address] [place] [address] PCP - General Internal Medicine 02/15/22 Ramona Hagen MD Referring Family Medicine 03/08/18 True Mayers MD [address] [place] [address] Primary Staff Physician Cardiology 05/16/18 Operater Relationship Specialty Start Date End Date Lenny Dumas MD [address] [place] [address] PCP - General Internal Medicine 02/15/22 Ramona Hagen MD Referring Family Medicine 03/08/18 True Mayers MD [address] [place] [address] Primary Staff Physician Cardiology 05/16/18 Operater Relationship Specialty Start Date End Date Lenny Dumas MD [address] [place] [address] PCP - General Internal Medicine 02/15/22 Ramona Hagen MD Referring Family Medicine 03/08/18 True Mayers MD [address] [place] [address] Primary Staff Physician Cardiology 05/16/18 Operater Relationship Specialty Start Date End Date Lenny Dumas MD [address] [place] [address] PCP - General Internal Medicine 02/15/22 Ramona Hagen MD Referring Family Medicine 03/08/18 True Mayers MD [address] [place] [address] Primary Staff Physician Cardiology 05/16/18 Operater Relationship Specialty Start Date End Date Lenny Dumas MD [address] [place], [place] [address] PCP - General Internal Medicine 02/15/22 Ramona Hagen MD Referring Family Medicine 03/08/18 True Mayesr MD [address] [place] [address] Primary Staff Physician Cardiology 05/16/18 Operater Relationship Specialty Start Date End Date Lenny Dumas MD [address] [place], [place] [address] PCP - General Internal Medicine 02/15/22 Ramona Hagen MD Referring Family Medicine 03/08/18 True Mayers MD [address] [place] [address] Primary Staff Physician Cardiology 05/16/18 Operater Relationship Specialty Start Date End Date Lenny Dumas MD [address] [place] [address] PCP - General Internal Medicine 02/15/22 Ramona Hagen MD Referring Family Medicine 03/08/18 True Mayers MD [address] [place] [address] Primary Staff Physician Cardiology 05/16/18 Operater Relationship Specialty Start Date End Date Lenny Dumas MD [address] [place], [place] [address] PCP - General Internal Medicine 02/15/22 Ramona Hagen MD Referring Family Medicine 03/08/18 True Mayers MD [address] [place] [address] Primary Staff Physician Cardiology 05/16/18 Operater Relationship Specialty Start Date End Date Lenny Dumas MD [address] [place] [address] PCP - General Internal Medicine 02/15/22 Ramona Hagen MD Referring Family Medicine 03/08/18 True Mayers MD [address] [place], [place] [id number] Primary Staff Physician Cardiology 05/16/18 Operater Relationship Specialty Start Date End Date Lenny Dumas MD [address] [place] [address] PCP - General Internal Medicine 02/15/22 Ramona Hagen MD Referring Family Medicine 03/08/18 True Mayers MD [address] [place] [address] Primary Staff Physician Cardiology 05/16/18 Operater Relationship Specialty Start Date End Date Lenny Dumas MD [address] [place], [place] [address] PCP - General Internal Medicine 02/15/22 Ramona Hagen MD Referring Family Medicine 03/08/18 True Mayers MD [address] [place] [address] Primary Staff Physician Cardiology 05/16/18 Operater Relationship Specialty Start Date End Date Lenny Dumas MD [address] [place], [place] [address]201 PCP - General Internal Medicine 02/15/22 Ramona Hagen MD Referring Family Medicine 03/08/18 True Mayers MD [address] [place] [address] Primary Staff Physician Cardiology 05/16/18 Operater Relationship Specialty Start Date End Date Lenny Dumas MD [address] [place], [place] [id number] PCP - General Internal Medicine 02/15/22 Ramona Hagen MD Referring Family Medicine 03/08/18 True Mayers MD [address] [place] [address] Primary Staff Physician Cardiology 05/16/18 Operater Relationship Specialty Start Date End Date Lenny Dumas MD [address] [place], [place] [address] PCP - General Internal Medicine 02/15/22 Ramona Hagen MD Referring Family Medicine 03/08/18 True Mayers MD [address] [place] [address] Primary Staff Physician Cardiology 05/16/18 Operater Relationship Specialty Start Date End Date Lenny Dumas MD [address] [place] [address] PCP - General Internal Medicine 02/15/22 Ramona Hagen MD Referring Family Medicine 03/08/18 True Mayers MD [address] [place] [address] Primary Staff Physician Cardiology 05/16/18 Operater Relationship Specialty Start Date End Date Lenny Dumas MD [address] [place] [address] PCP - General Internal Medicine 02/15/22 Ramona Hagen MD Referring Family Medicine 03/08/18 True Mayers MD [address] [place] [address] Primary Staff Physician Cardiology 05/16/18 Operater Relationship Specialty Start Date End Date Lenny Dumas MD [address] [place], [place] [address] PCP - General Internal Medicine 02/15/22 Ramona Hagen MD Referring Family Medicine 03/08/18 True Mayers MD [address] [place] [address] Primary Staff Physician Cardiology 05/16/18 Operater Relationship Specialty Start Date End Date Lenny Dumas MD [address] [place] [address] PCP - General Internal Medicine 02/15/22 Ramona Hagen MD Referring Family Medicine 03/08/18 True Mayers MD [address] [place] [address] Primary Staff Physician Cardiology 05/16/18 Operater Relationship Specialty Start Date End Date Lenny Dumas MD [address] [place] [address] PCP - General Internal Medicine 02/15/22 Ramona Hagen MD Referring Family Medicine 03/08/18 True Mayers MD [address] [place] [address] Primary Staff Physician Cardiology 05/16/18 Geo Simon APRN.SHANKER OUT [address] [place] [address] Admission Nurse Internal Medicine 02/06/24 Nohemy Davis APRN.NEEDLE LOOM WEAVER [address] [place] [address] Admission Nurse Internal Medicine 02/06/24 Operater Relationship Specialty Start Date End Date Lenny Dumas MD [address] [place] [address] PCP - General Internal Medicine 02/15/22 Ramona Hagen MD Referring Family Medicine 03/08/18 True Mayers MD [address] [place] [address] Primary Staff Physician Cardiology 05/16/18 Geo Simon, JOHNATHAN.SHANKER OUT [address] [place] [address] Admission Nurse Internal Medicine 02/06/24 Nohemy Davis APRN.NEEDLE LOOM WEAVER [address] [place] [address] Admission Nurse Internal Medicine 02/06/24 Operater Relationship Specialty Start Date End Date Lenny Dumas MD [address] [place] [address] PCP - General Internal Medicine 02/15/22 Ramona Hagen MD Referring Family Medicine 03/08/18 True Mayers MD [address] [place] [address] Primary Staff Physician Cardiology 05/16/18 Geo Simon, LAY OUT CARPENTER.SHANKER OUT [address] [place] [address] Admission Nurse Internal Medicine 02/06/24 Nohemy Davis LAY OUT CARPENTER.NEEDLE LOOM WEAVER [facility] [place] [address] Admission Nurse Internal Medicine 02/06/24 Operater Relationship Specialty Start Date End Date Lenny Dumas MD [address] [place] [address] PCP - General Internal Medicine 02/15/22 Ramona Hagen MD Referring Family Medicine 03/08/18 True Mayers MD [address] [place] [address] Primary Staff Physician Cardiology 05/16/18 Geo Simon, LAY OUT CARPENTER.SHANKER OUT [address] [place] [address] Admission Nurse Internal Medicine 02/06/24 Nohemy Davis LAY OUT CARPENTER.NEEDLE LOOM WEAVER [address] [place] [address] Admission Nurse Internal Medicine 02/06/24 Operater Relationship Specialty Start Date End Date Lenny Dumas MD [address] [place] [address] PCP - General Internal Medicine 02/15/22 Ramona Hagen MD Referring Family Medicine 03/08/18 True Mayers MD [address] [place] [address] Primary Staff Physician Cardiology 05/16/18 Geo Simon, LAY OUT CARPENTER.SHANKER OUT [address] [place] [address] [facility] Internal Medicine 02/06/24 Nohemy Davis LAY OUT CARPENTER.NEEDLE LOOM WEAVER [address] [place] [address] [facility] Internal Medicine 02/06/24 Operater Relationship Specialty Start Date End Date Lenny Dumas MD [address] [place] [address] PCP - General Internal Medicine 02/15/22 Ramona Hagen MD Referring Family Medicine 03/08/18 True Mayers MD [address] [place], [place] [address] Primary Staff Physician Cardiology 05/16/18 Geo Simon, LAY OUT CARPENTER.SHANKER OUT [address] [place] [address] Admission Nurse Internal Medicine 02/06/24 Nohemy Davis LAY OUT CARPENTER.NEEDLE LOOM WEAVER [address] [place] [address] [facility] Internal Medicine 02/06/24 Operater Relationship Specialty Start Date End Date Lenny Dumas MD [address] [place] [address] PCP - General Internal Medicine 02/15/22 Ramona Hagen MD Referring Family Medicine 03/08/18 True Mayers MD [address] [place] [address] Primary Staff Physician Cardiology 05/16/18 Geo Simon, LAY OUT CARPENTER.SHANKER OUT [address] [facility] [place] [address] [facility] Internal Medicine 02/06/24 Nohemy Davis LAY OUT CARPENTER.NEEDLE LOOM WEAVER [address] [facility] [place] [place] [address] [facility] Internal Medicine 02/06/24 Operater Relationship Specialty Start Date End Date Lenny Dumas MD [address] [place], [place] 113351 PCP - General Internal Medicine 02/15/22 Ramona Hagen MD Referring Family Medicine 03/08/18 True Mayers MD [address] [place] [address] Primary Staff Physician Cardiology 05/16/18 Geo Simon, LAY OUT CARPENTER.SHANKER OUT [address] [place] [address] Admission Nurse Internal Medicine 02/06/24 Nohemy Davis LAY OUT CARPENTER.NEEDLE LOOM WEAVER [address] [place] [address] Admission Nurse Internal Medicine 05/22/24 Operater Relationship Specialty Start Date End Date Lenny Dumas MD [address] [place] [address] PCP - General Internal Medicine 02/15/22 Ramona Hagen MD Referring Family Medicine 03/08/18 True Mayers MD [address] [place] [address] Primary Staff Physician Cardiology 05/16/18 Geo Simon, LAY OUT CARPENTER.SHANKER OUT [address] [place] [address] Admission Nurse Internal Medicine 02/06/24 Nohemy Davis LAY OUT CARPENTER.NEEDLE LOOM WEAVER [address] [facility] [place] [address] [facility] Internal Medicine 05/22/24 Operater Relationship Specialty Start Date End Date Lenny Dumas MD [address] [facility] [place] [place] [address] PCP - General Internal Medicine 02/15/22 Ramona Hagen MD Referring Family Medicine 03/08/18 True Mayers MD [address] [place] [address] Primary Staff Physician Cardiology 05/16/18 Geo Simon, JOHNATHAN.SHANKER OUT [address] [place] [address] [facility] Internal Medicine 02/06/24 Nohemy Davis LAY OUT CARPENTER.NEEDLE LOOM WEAVER [address] [place] [address] [facility] Internal Medicine 02/06/24 05/18/24 Nohemy Davis LAY OUT CARPENTER.NEEDLE LOOM WEAVER [address] [facility] [place] [place] [address] [facility] Internal Medicine 05/22/24 Operater Relationship Specialty Start Date End Date Lenny Dumas MD [address] [place] [address] PCP - General Internal Medicine 02/15/22 Ramona Hagen MD Referring Family Medicine 03/08/18 True Mayers MD [address] [place], [place] [address] Primary Staff Physician Cardiology 05/16/18 Geo Simon, LAY OUT CARPENTER.SHANKER OUT [address] [place] [address] Admission Nurse Internal Medicine 02/06/24 Nohemy Davis LAY OUT CARPENTER.NEEDLE LOOM WEAVER [address] [place] [address] [facility] Internal Medicine 05/22/24 Operater Relationship Specialty Start Date End Date Lenny Dumas MD [address] [place] [address] PCP - General Internal Medicine 02/15/22 Ramona Hagen MD Referring Family Medicine 03/08/18 True Mayers MD [address] [place] [address] Primary Staff Physician Cardiology 05/16/18 Geo Simon, LAY OUT CARPENTER.SHANKER OUT [address] [place] [address] Admission Nurse Internal Medicine 02/06/24 07/17/24 Nohemy Davis LAY OUT CARPENTER.NEEDLE LOOM WEAVER [address] [place] [address] Admission Nurse Internal Medicine 05/22/24 Geo Simon, LAY OUT CARPENTER.SHANKER OUT [address] [place] [address] Admission Nurse Internal Medicine 07/18/24 Operater Relationship Specialty Start Date End Date Lenny Dumas MD [address] [place] [address] PCP - General Internal Medicine 02/15/22 Ramona Hagen MD Referring Family Medicine 03/08/18 True Mayers MD [address] [place] [address] Primary Staff Physician Cardiology 05/16/18 Nohemy Davis, LAY OUT CARPENTER.NEEDLE LOOM WEAVER [address] [place] [address] Admission Nurse Internal Medicine 05/22/24 Geo Simon, LAY OUT CARPENTER.SHANKER OUT [address] [place] [address] Admission Nurse Internal Medicine 07/18/24 Operater Relationship Specialty Start Date End Date Lenny Dumas [address] [place] [address] PCP - General Internal Medicine 07/19/24 Operater Relationship Specialty Start Date End Date Lenny Dumas [address] [place] [address] PCP - General Internal Medicine 07/19/24 Operater Relationship Specialty Start Date End Date Lenny Dumas MD [address] [place] [address] PCP - General Internal Medicine 02/15/22 Ramona Hagen MD Referring Family Medicine 03/08/18 True Mayers MD [address] [place], [place] [address] Primary Staff Physician Cardiology 05/16/18 Nohemy Davis APRN.NEEDLE LOOM WEAVER [address] [place] [address] Admission Nurse Internal Medicine 05/22/24 Geo Simon APRN.SHANKER OUT [address] [place] [address] Admission Nurse Internal Medicine 07/18/24 Operater Relationship Specialty Start Date End Date Lenny Dumas [address] [place] [address] PCP - General Internal Medicine 07/19/24 Operater Relationship Specialty Start Date End Date Lenny Dumas MD [address] [place] [address] PCP - General Internal Medicine 02/15/22 Ramona Hagen MD Referring Family Medicine 03/08/18 True Mayers MD [address] [place] [address] Primary Staff Physician Cardiology 05/16/18 Nohemy Davis APRN.NEEDLE LOOM WEAVER [address] [place] [address] Admission Nurse Internal Medicine 05/22/24 Geo Simon, LAY OUT CARPENTER.SHANKER OUT [address] [place] [address] Admission Nurse Internal Medicine 07/18/24 Operater Relationship Specialty Start Date End Date Lenny Dumas MD [address] [place] [address] PCP - General Internal Medicine 02/15/22 Ramona Hagen MD Referring Family Medicine 03/08/18 True Mayers MD [address] [place], [place] [address] Primary Staff Physician Cardiology 05/16/18 Nohemy Davis LAY OUT CARPENTER.NEEDLE LOOM WEAVER [address] [place] [address] Admission Nurse Internal Medicine 05/22/24 Geo Simon, LAY OUT CARPENTER.SHANKER OUT [address] [place] [address] Admission Nurse Internal Medicine 07/18/24 Operater Relationship Specialty Start Date End Date Lenny Dumas MD [address] [place] [address] PCP - General Internal Medicine 02/15/22 Ramona Hagen MD Referring Family Medicine 03/08/18 True Mayers MD [address] [place] [address] Primary Staff Physician Cardiology 05/16/18 Geo Simon, JOHNATHAN.SHANKER OUT [address] [place] [address] [facility] Internal Medicine 02/06/24 07/17/24 Nohemy Davis APRN.NEEDLE LOOM WEAVER [address] [place] [address] [facility] Internal Medicine 05/22/24 Geo Simon APRN.SHANKER OUT [address] [place] [address] [facility] Internal Medicine 07/18/24 Operater Relationship Specialty Start Date End Date Lenny Dumas MD [address] [place] [address] PCP - General Internal Medicine 02/15/22 Ramona Hagen MD Referring Family Medicine 03/08/18 True Mayers MD [address] [place] [address] Primary Staff Physician Cardiology 05/16/18 Nohemy Davis APRN.NEEDLE LOOM WEAVER [address] [place] [address] [facility] Internal Medicine 05/22/24 Geo Simon APRN.SHANKER OUT [address] [place] [address] Admission Nurse Internal Medicine 07/18/24 Operater Relationship Specialty Start Date End Date Lenny Dumas MD [address] [place] [address] PCP - General Internal Medicine 02/15/22 Ramona Hagen MD Referring Family Medicine 03/08/18 True Mayers MD [address] [place], [place] [address] Primary Staff Physician Cardiology 05/16/18 Nohemy Davis APRN.NEEDLE LOOM WEAVER [address] [place] [address] Admission Nurse Internal Medicine 05/22/24 Geo Simon APRN.SHANKER OUT [address] [place], [place] [address] Admission Nurse Internal Medicine 07/18/24 Team Status: Active Member Role/Relationship Status Dates Dr. Lenny Dumas MD Primary Care Provider Active Team Status: Active Member Role/Relationship Status Dates Dr. Lenny Dumas MD Primary Care Provider Active Start: May 31, 2024 Self Referred Attending Provider Active Start: A 2024 Self Referred Referring Provider Active Start: A pril 2024 Team Status: Inactive Member Role/Relationship Status Dates Dr. Lenny Dumas MD Primary Care Provider Active Start: June 27, 2024 End: June 27, 2024 Dr. Alton Rodriguez DO Attending Provider Active Start: June 27, 2024 End: June 27, 2024 Dr. Alton Rodriguez DO Emergency Provider Active Start: June 27, 2024 End: June 27, 2024 Team Status: Inactive Member Role/Relationship Status Dates Dr. Lenny Dumas MD Primary Care Provider Active Start: September 06, 2024 End: September 06, 2024 Nohemy Davis CLERK RATING, CLERK RATING-C Attending Provider Active Start: September 06, 2024 End: September 06, 2024 Nohemy Davis CLERK RATING, CLERK RATING-C Referring Provider Active Start: September 06, 2024 End: September 06, 2024 Team Status: Inactive Member Role/Relationship Status Dates Dr. Lenny Dumas MD Primary Care Provider Active Start: September 19, 2024 End: September 19, 2024 Nohemy Davis CLERK RATING, CLERK RATING-C Attending Provider Active Start: September 19, 2024 End: September 19, 2024 Nohemy Davis CLERK RATING, CLERK RATING-C Referring Provider Active Start: September 19, 2024 End: September 19, 2024 Team Status: Active Member Role/Relationship Status Dates Dr. Lenny Dumas MD Primary Care Provider Active Start: September 19, 2024 Nohemy Davis CLERK RATING, CLERK RATING-C Referring Provider Active Start: September 19, 2024 Nohemy Davis CLERK RATING, CLERK RATING-C Other Provider Active Star t: September 19, 2024 Dr. Karri Bingham MD Attending Provider Active S tart: September 19, 2024 Operater Relationship Specialty Start Date End Date Lenny Dumas MD [address] [place], [place] [address] PCP - General Internal Medicine 02/15/22 Ramona Hagen MD Referring Family Medicine 03/08/18 True Mayers MD [address] [place] [address] Primary Staff Physician Cardiology 05/16/18 Nohemy Davis APRN.CNP [address] [place], [place] [id number] Admission Nurse Internal Medicine 05/22/24 Geo Simon, LAY OUT CARPENTER.SHANKER OUT [address] [place] [address] [facility] Internal Medicine 07/18/24 Operater Relationship Specialty Start Date End Date Lenny Dumas MD [address] [place] [address] PCP - General Internal Medicine 02/15/22 Ramona Hagen MD Referring Family Medicine 03/08/18 True Mayers MD [address] [place] [address] Primary Staff Physician Cardiology 05/16/18 Nohemy Davis, LAY OUT CARPENTER.NEEDLE LOOM WEAVER [address] [place] [address] [facility] Internal Medicine 05/22/24 Geo Simon, LAY OUT CARPENTER.SHANKER OUT [address] [place] [address] [facility] Internal Medicine 07/18/24 Operater Relationship Specialty Start Date End Date Lenny Dumas MD [address] [place] [address] PCP - General Internal Medicine 02/15/22 Ramona Hagen MD Referring Family Medicine 03/08/18 True Mayers MD [address] [place] [address] Primary Staff Physician Cardiology 05/16/18 Nohemy Davis LAY OUT CARPENTER.NEEDLE LOOM WEAVER [address] [place] [address] Admission Nurse Internal Medicine 05/22/24 Geo Simon, LAY OUT CARPENTER.SHANKER OUT [address] [place] [address] Admission Nurse Internal Medicine 07/18/24 Operater Relationship Specialty Start Date End Date Lenny Dumas MD [address] [place] [address] PCP - General Internal Medicine 02/15/22 Ramona Hagen MD Referring Family Medicine 03/08/18 True Mayers MD [address] [place] [address] Primary Staff Physician Cardiology 05/16/18 Nohemy Davis, LAY OUT CARPENTER.NEEDLE LOOM WEAVER [address] [place] [address] Admission Nurse Internal Medicine 05/22/24 Geo Simon, LAY OUT CARPENTER.SHANKER OUT [address] [place] [address] Admission Nurse Internal Medicine 07/18/24 Operater Relationship Specialty Start Date End Date Lenny Dumas MD [address] [place] [address] PCP - General Internal Medicine 02/15/22 Ramona Hagen MD Referring Family Medicine 03/08/18 True Mayers MD [address] [place] [address] Primary Staff Physician Cardiology 05/16/18 Nohemy Davis APRN.NEEDLE LOOM WEAVER [address] [place] [address] Admission Nurse Internal Medicine 05/22/24 Geo Simon APRN.SHANKER OUT [address] [place] [address] Admission Nurse Internal Medicine 07/18/24 Operater Relationship Specialty Start Date End Date Lenny Dumas MD [address] [place] [address] PCP - General Internal Medicine 02/15/22 Ramona Hagen MD Referring Family Medicine 03/08/18 True Mayers MD [address] [place] [address] Primary Staff Physician Cardiology 05/16/18 Nohemy Davis LAY OUT CARPENTER.NEEDLE LOOM WEAVER [address] [place] [address] Admission Nurse Internal Medicine 05/22/24 Geo Simon APRN.SHANKER OUT [address] [place] [address] Admission Nurse Internal Medicine 07/18/24 Operater Relationship Specialty Start Date End Date Lenny Dumas MD [address] [place], [place] [address] PCP - General Internal Medicine 02/15/22 Ramona Hagen MD Referring Family Medicine 03/08/18 True Mayers MD [address] [place] [address] Primary Staff Physician Cardiology 05/16/18 Nohemy Davis, LAY OUT CARPENTER.NEEDLE LOOM WEAVER [address] [place] [address] Admission Nurse Internal Medicine 05/22/24 Geo Simon, LAY OUT CARPENTER.SHANKER OUT [address] [place] [address] Admission Nurse Internal Medicine 07/18/24 Operater Relationship Specialty Start Date End Date Lenny Dumas MD [address] [place] [address] PCP - General Internal Medicine 02/15/22 Ramona Hagen MD Referring Family Medicine 03/08/18 True Mayers MD [address] [place], [place] [id number] Primary Staff Physician Cardiology 05/16/18 Nohemy Davis, LAY OUT CARPENTER.NEEDLE LOOM WEAVER [address] [place] [address] Admission Nurse Internal Medicine 05/22/24 Geo Simon, LAY OUT CARPENTER.SHANKER OUT [address] [place], [place] [id number] [facility] Internal Medicine 07/18/24 Operater Relationship Specialty Start Date End Date Lenny Dumas MD [address] [place], [place] [id number] PCP - General Internal Medicine 02/15/22 Ramona Hagen MD Referring Family Medicine 03/08/18 True Mayers MD [address] [place] [address] Primary Staff Physician Cardiology 05/16/18 Nohemy Davis, LAY OUT CARPENTER.NEEDLE LOOM WEAVER [address] [place], [place] [address] [facility] Internal Medicine 05/22/24 Geo Simon, LAY OUT CARPENTER.SHANKER OUT [address] [place] [address] [facility] Internal Medicine 07/18/24 Goals (unrecognized section and content) Goals may be documented in a n alternate sectionGoals may be documented in an alternate sectionGoals may be documented in an alternate sectionGoals may be documented in an alternate sectionGoals may be documented in an alternate sectionGoals may be documented in an alternate section INFORMATION SOURCE (unrecogn ized section and content) DATE CREATED AUTHOR 08/21/2024 [facility] DATE CREATED AUTHOR AUTHOR'S ORGANIZ ATION 12/25/2024 [facility] DATE CREATED AUTHOR AUTHOR'S ORGANIZ ATION 12/25/2024 [facility] FOR RECORDS PERTAINING TO PATIENTS WHO ARE OR HAVE BEEN ENROLLED IN A CHEMICAL DEPENDENCY/SUBSTANCEABUSE PROGRAM, SOME INFORMATION MAY BE OMITTED. This clinical summary was aggregated from multiple sources. Caution should be exercised in using it in the provision of clinical care. This summary normalizes information from multiple sources, and as a consequence, information in this document may materially change the coding, format and clinical context of patient data. In addition, data may be omitted in some cases. CLINICAL DECISIONS SHOULD BE BASED ON THE PRIMARY CLINICAL RECORDS. [facility] [employer] [facility]. provides no warranty or guarantee of the accuracy or completeness of information in this document.
== END | disposition home or self-care (01) ==
LOC: SL 21:27
PROVIDERS: PCP Internal Medicine; Referring Provider Internal Medicine; Visit Provider Internal Medicine
DX: G47.10 Hypersomnia, unspecified (principal)
CPT/HCPCS: 95810